=== PATIENT | male | born 1950 | race Caucasian/White ===

== ENCOUNTER → 2016-03-26 | Outpatient (CLI) | payer BC ==
--- NOTE | 2016-03-26 08:37 | US ---
EXAMINATION TYPE: US abdomen complete DATE OF EXAM: 03/26/2016 7:54 AM COMPARISON: CT 2011 CLINICAL HISTORY: R74.0 Elevated Enzymes of Lactic Acid. History of left renal calculi, pt has had se veral lithotripsy exams. EXAM MEASUREMENTS: Liver Length: 14.3 cm cm Gallbladder Wall: 0.3 cm CBD: 0.2 cm Spleen: 9.4 cm Right Kidney: 10.1 x 5.1 x 4.6 cm Left Kidney: 10.4 x 5.0 x 4.3 cm cm TECHNOLOGIST IMPRESSION: overlying bowel gas Pancreas: overlying bowel gas, portions seen wnl Liver: fatty sparing 1.8 x 1.8 x 1.0 cm lacey hepatis Gallbladder: wnl Evidence for sonographic Arambula's sign: no CBD: wnl Spleen: wnl Right Kidney: No hydronephrosis or masses seen Left Kidney: no hydro seen, inferior stone 0.8 x 2.0 x 1.2 cm Upper IVC: wnl Abd Aorta: wnl Area of reduced echogenicity within the lacey hepatis most typical focal area of fatty sparing. There is a 2 cm stone involving the inferior pole left kidney. IMPRESSION: 1. Nonobstructing 2 cm lower pole left renal stone 2. Area of focal fatty sparing within the liver
== END | disposition home or self-care (01) ==
LOC: RADUSWWP 07:34
PROVIDERS: ATTEND Family Medicine
DX: N20.0 Calculus of kidney (principal); K76.0 Fatty (change of) liver, not elsewhere classified
CPT/HCPCS: 76700

== ENCOUNTER 2018-04-16 09:09 | Inpatient (IN) | payer MEDICARE ==
[2018-04-16] MEDS ORDERED: DOBUTamine DRIP for NUC MED 500 MG in DEXTROSE/WATER 1 250ML.BAG IV ONE (10:00)
--- NOTE | 2018-04-16 11:14 | ECHOS ---
STRESS ECHOCARDIOGRAM DATE OF SERVICE: 04/16/2018 INDICATIONS: Chest pain and palpitations. MEDICATIONS: BASELINE HEART RATE: 71 BASELINE BLOOD PRESSURE: 158/92 MAXIMUM HEART RATE: 139 MAXIMUM BLOOD PRESSURE: 177/77 85% MPHR: 131 100% MPHR: 154 METS: MAXIMUM STAGE REACHED: TOTAL EXERCISE TIME: CLINICAL INFORMATION: Baseline EKG shows sinus rhythm, normal axis, normal intervals. Patient was given intravenous dobutamine over a period of 7-1/2 minutes as per protocol, achieving 90% of predicted maximal heart rate. The patient developed SVT initially and subsequently went into atrial fibrillation. Baseline echo shows normal left ventricular size, wall motion and systolic function. Post dobutamine infusion, there is normal hyperdynamic response of all segments of myocardium. CONCLUSION: 1. Negative dobutamine echo. 2. Inconclusive EKG part of the stress test due to atrial fibrillation. 3. Episodes of paroxysmal supraventricular tachycardia and atrial fibrillation. PLAN: Patient's palpitations are probably related to the atrial fibrillation and given the prior history of TIA, I advised him to start an anticoagulant. If he continues to be in atrial fibrillation, we may admit him to hospital. If not, we will manage this in the outpatient setting. MMODL / IJN: [id number] /
--- NOTE | 2018-04-16 11:29 | CT ---
EXAMINATION TYPE: CT chest wo con DATE OF EXAM: 04/16/2018 COMPARISON: NONE HISTORY: Chest pain for [address] DLP: 333.50 mGycm. Automated Exposure Control for Dose Reduction was Utilized. TECHNIQUE: CT scan of the thorax is performed without IV contrast. FINDINGS: LUNGS: The lungs are grossly clear, there is no concerning parenchymal mass or nodule identified. B andlike pleural parenchymal scar is present within the anterior inferior right upper lobe. There is a 3 mm subpleural solid pulmonary nodules the right middle lobe on series 4 image 37. Benign calcified nodule both the pleural surface in the right middle lobe on image 44. There is no pleural effusion o r pneumothorax seen. The tracheobronchial tree is patent. Slight left hemidiaphragm elevation is not ed on the coronal images. MEDIASTINUM: Lack of IV contrast is noted to limit evaluation for mediastinal and especially hilar ad enopathy. There are no definitive greater than 1 cm hilar or mediastinal lymph nodes. Ascending thora cic aorta is within normal limits but upper limits of normal measuring 3.8 cm. Aortic root is also wi thin normal limits. No cardiomegaly or pericardial effusion is seen. There is slight enlargement of t he right main pulmonary artery measuring 2.8 cm. Left main pulmonary artery and nonenlarged. Mild cor onary artery calcifications are seen of the right coronary artery. OTHER: Partially visualized hepatic steatosis is incidentally noted. Two low-density nodules of the r ight adrenal gland are also seen measuring 1.3 cm and 1.0 cm with Hounsfield units compatible with be nign adenomas. Few colonic diverticula are present without surrounding inflammatory fat stranding. IMPRESSION: 1. No focal consolidation, pleural effusion or pneumothorax. Slight left hemidiaphragm elevation is s een. If there is clinical concern for diaphragmatic paresis fluoroscopic sniff test could be performe d. 2. 3 mm solid right middle lobe pulmonary nodule. Surveillance for nodules of this size is recommende d with [address] chest. 3. Hepatic steatosis and benign right adrenal adenomas. 4. Mildly dilated right main pulmonary artery, that may clinically correlate with pulmonary arterial hypertension.
[2018-04-16] MEDS ORDERED: HEPARIN SODIUM,PORCINE 5,000 UNIT/ML 1 ML VIAL IV ONE (11:31)
[2018-04-16] MEDS ORDERED: HEPARIN SODIUM,PORCINE 5,000 UNIT/ML 1 ML VIAL IV PRN (11:31)
[2018-04-16] MEDS ORDERED: DILTIAZEM DRIP BOLUS FROM BAG 1 MG SOLN IV ONE (11:32)
--- NOTE | 2018-04-16 11:39 | P.CRDCN ---
History of Present Illness History of present illness: This is a pleasant 68-year-old male past medical history significant for hypertension and TIA in the past. His only cardiac medication he takes daily as well as lisinopril. He presented to the stress lab today for an outpatient stress test test indication was chest pain and palpitations. All undergoing dobutamine infusion he initially was in sinus mechanism then went into SVT heart rate went up to 215 and he then went into atrial fibrillation with a varying ventricular rate. He was given IV Lopressor 5 mg which brought his heart rate down to 140-150 range. Blood pressure remained stable throughout the stress test most recent was 127/86 and 118/79. He complains of feeling palpitations and fluttering in his chest similar to how he is felt in the past. He denies symptoms of chest pain, dizziness or shortness of breath. The decision was made to admit the patient to the hospital for initiation of anticoagulation and control of his heart rate. Dr. Connell's office was notified in case was discussed with his nurse practitioner Linda. She states the patient does struggle with alcohol abuse as well. Dobutamine stress echocardiogram is negative for stress-induced ischemia. EKG obtained in the stress lab reveals atrial fibrillation with rapid ventricular response heart rate 143. Laboratory data pending. At the time of my exam: CONSTITUTIONAL: Denies fever. Denies chills. EYES: Denies blurred vision. Denies vision changes. Denies eye pain. EARS, NOSE, MOUTH & THROAT: Denies headache. Denies sore throat. Denies ear pain. CARDIOVASCULAR: Denies chest pain. Denies shortness of breath. Denies orthopnea. Denies PND. Complains of palpitations. RESPIRATORY: Denies cough. GASTROINTESTINAL: Denies abdominal pain. Denies diarrhea. Denies constipation. Denies nausea. Denies vomiting. MUSCULOSKELETAL: Denies myalgias. INTEGUMENTARY: Denies pruitis. Denies rash. NEUROLOGIC: Denies numbness. Denies tingling. Denies weakness. PSYCHIATRIC: Denies anxiety. Denies depression. ENDOCRINE: Denies fatigue. Denies weight change. Denies polydipsia. Denies polyurina. GENITOURINARY: Denies burning, hematuria or urgency with micturation. HEMATOLOGIC: Denies history of anemia. Denies bleeding. Blood pressure 118/79 heart rate 143 GENERAL: This is a 68-year-old male in no apparent distress at the time of my examination. HEENT: Head is atraumatic, normocephalic. Pupils are equal, round. Sclerae anicteric. Conjunctivae are clear. Mucous membranes of the mouth are moist. Neck is supple. There is no jugular venous distention. No carotid bruit is heard. LUNGS: Clear to auscultation no wheezes, rales or rhonchi. No chest wall tenderness is noted on palpation or with deep breathing. HEART: Irregular and rapid rate and rhythm without murmurs, rubs or gallops. S1 and S2 heard. ABDOMEN: Soft, nontender. Bowel sounds are heard. No organomegaly noted. EXTREMITIES: No evidence of peripheral edema and no calf tenderness noted. VASCULAR: Radial and dorsalis pedis pulses palpated, no evidence of clubbing. NEUROLOGIC: Patient is awake, alert and oriented x3. ASSESSMENT New onset paroxysmal atrial fibrillation with rapid ventricular response Hypertension Regular alcohol use PLAN Initiate the patient on IV Cardizem infusion with a 5 mg bolus and a 5 mg drip titrated to heart rate. Initiate an IV heparin infusion. Initiate metoprolol 25 mg twice a day. We will ask the telephonic nurse case manager to check for coverage of Eliquis 5 mg twice a day. Obtain CBC, PT/INR, BMP, magnesium and TSH. Once heart rate is controlled will obtain a 2-D echocardiogram and Doppler study to assess cardiac structure and function. Further recommendations to follow based upon clinical course. Thank you kindly for this consultation. Nurse Practitioner note has been reviewed, I agree with a documented findings and plan of care. Patient was seen and examined. Medications and Allergies Allergies Allergy/AdvReac Type Severity Reaction Status Date / Time No Known Allergies Allergy Unverified 04/16/18 09:55 Physical Exam Vitals: Intake and Output 04/15/18 04/16/18 04/16/18 22:59 06:59 14:59 Other: Weight 77.111 kg Results Intake and Output 04/15/18 04/16/18 04/16/18 22:59 06:59 14:59 Other: Weight 77.111 kg Patient Weight 04/17/18 06:59 Weight 77.111 kg
[2018-04-16] MEDS ORDERED: HEPARIN SOD,PORK IN 0.45% NACL 25,000 UNIT in 0.45% NACL 1 250ML.BAG IV SCH (11:45)
[2018-04-16] MEDS ORDERED: METOPROLOL TARTRATE 25 MG TAB PO SCH (11:45)
[2018-04-16] MEDS ORDERED: DILTIAZEM 125 MG in SODIUM CHLORIDE 0.9% 100 ML IV SCH (11:45)
[2018-04-16 11:53] LABS: Glucose,Whole Blood 125 mg/dL (75-99)
[2018-04-16 12:58] LABS: Basophils % (A) 1 %; Calcium 9.4 mg/dL (8.4-10.2); Eosinophils # (A) 0.1 k/uL (0-0.7); Eosinophils % (A) 2 %; HCT 40.2 % (39.0-53.0); Lymphocytes # (A) 0.7 k/uL (1.0-4.8); Lymphocytes % (A) 21 %; MCH 33.7 pg (25.0-35.0); MCHC 32.4 g/dL (31.0-37.0); MCV 103.9 fL (80.0-100.0); Macrocytosis Slight; Magnesium 1.1 mg/dL (1.6-2.3); Mean Platelet Volume 7.8; Monocytes # (A) 0.2 k/uL (0-1.0); Monocytes % (A) 7 %; Neutrophils # (A) 2.4 k/uL (1.3-7.7); Neutrophils % (A) 68 %; Platelet Count 132 k/uL (150-450); Potassium 5.1 mmol/L (3.5-5.1); RBC 3.87 m/uL (4.30-5.90); RDW 11.7 % (11.5-15.5); WBC 3.5 k/uL (3.8-10.6)
[2018-04-16 13:01] LABS: Partial Thromboplastin Time 22.4 sec (22.0-30.0); Prothrombin Time 11.1 sec (9.0-12.0)
[2018-04-16 13:10] VITALS: BMI 26.6
--- NOTE | 2018-04-16 14:15 | P.HPIM ---
History of Present Illness H&P Date: 04/16/18 Chief Complaint: chest pain 68-year-old male with PMH of hypertension is admitted to the hospital after completing an outpatient stress test which chemically induced atrial fibrillation with RVR. Patient reports that he is being suffering chest pain has been ongoing for the past month since suffering from an apparent upper respiratory infection which consisted of cough and congestion. Chest x-ray and EKG was done in the outpatient setting which is unremarkable as per patient. However, his chest pain persisted resulting in an order for stress test. Pain is intermittent and occurs 10 times a day. The pain lasts for a few minutes when it starts. Pain is left-sided, sharp in nature and occasionally radiates to the right side of the chest. There are no alleviating or aggravating factors. Pain is not exacerbated with deep inspiration or with movement. Patient denies any headache , lower extremity edema, nausea, vomiting, fever, cough, shortness of breath, palpitations, changes in urination or bowel habits. No changes in appetite or weight. While undergoing dobutamine infusion he initially was in sinus mechanism then went into SVT, heart rate went up to 215, and he then went into atrial fibrillation with a varying ventricular rate. He was given IV Lopressor 5 mg which brought his heart rate down to 140-150 range. In the ED, CT of the chest showed a 3 mm solid right middle lobe pulmonary nodule. Patient is admitted for atrial fibrillation with rapid ventricular rate , cardiology on consult. Review of Systems All systems: negative Past Medical History Past Medical History: CVA/TIA, GERD/Reflux, Hypertension History of Any Multi-Drug Resistant Organisms: None Reported Past Surgical History: No Surgical Hx Reported Past Anesthesia/Blood Transfusion Reactions: Unable to Obtain Past Psychological History: No Psychological Hx Reported Smoking Status: Never smoker Medications and Allergies Allergies Allergy/AdvReac Type Severity Reaction Status Date / Time No Known Allergies Allergy Unverified 04/16/18 09:55 Physical Exam Vitals: Vital Signs Pulse Resp BP Pulse Ox 04/16/18 13:00 74 15 152/104 96 04/16/18 12:30 72 18 167/105 95 04/16/18 12:00 133 H 23 164/107 95 04/16/18 11:43 125 H 26 H Intake and Output 04/15/18 04/16/18 04/16/18 22:59 06:59 14:59 Other: Weight 77.111 kg General: [non toxic], [no distress], [appears at stated age] Derm: [warm], [dry] Head: [atraumatic], [normocephalic], [symmetric] Eyes: [EOMI], [no lid lag], [anicteric sclera] Mouth: [no lip lesion], [mucus membranes moist] Cardiovascular: [S1S2 reg], [no murmur], [positive posterior tibial pulse bilateral], Lungs: [CTA bilateral], [no rhonchi, no rales] , [no accessory muscle use] Abdominal: [soft], [ nontender to palpation], [no guarding], [no appreciable organomegaly] Ext: [no gross muscle atrophy], [no edema], [no contractures] Neuro: [ CN II-XI grossly intact], [no focal neuro deficits] Psych: [Alert], [oriented], [appropriate affect] Results CBC & Chem 7: 04/16/18 12:22 04/16/18 12:22 Labs: Abnormal Lab Results - Last 24 Hours (Table) 04/16/18 04/16/18 04/16/18 Range/Units 11:41 12:22 12:22 WBC 3.5 L (3.8-10.6) k/uL RBC 3.87 L (4.30-5.90) m/uL MCV 103.9 H (80.0-100.0) fL Plt Count 132 L (150-450) k/uL Lymphocytes # 0.7 L (1.0-4.8) k/uL Sodium 146 H (137-145) mmol/L Chloride 112 H (98-107) mmol/L BUN 38 H (9-20) mg/dL Creatinine 1.60 H (0.66-1.25) mg/dL Glucose 111 H (74-99) mg/dL POC Glucose (mg/dL) 125 H (75-99) mg/dL Magnesium 1.1 L (1.6-2.3) mg/dL Thrombosis Risk Factor Assmnt - Choose All That Apply Each Factor Represents 1 point: Age 41-60 years Other Risk Factors: No Other congenital or acquired thrombophilia - If yes, enter type in comment: No Thrombosis Risk Factor Assessment Total Risk Factor Score: 1 Thrombosis Risk Factor Assessment Level: Low Risk Assessment and Plan Assessment: Assessment and Plan 1. Atrial fibrillation with RVR 2. Chest pain 1. Patient converted while in the ICU. Will hold diltiazem drip, heparin drip. Patient started on metoprolol 25 mg by mouth twice a day. Telemetry monitoring. TSH is within normal limits. Keep potassium greater than 4 and magnesium greater than 2. We'll follow echocardiogram results. Will follow cardiology consultation. 2. Likely musculoskeletal, tenderness to palpation. Will follow the results of the stress test. Telemetry monitoring. Follow cardiology recommendations. Patient admitted for atrial fibrillation with RVR. Converted to sinus without intervention. Will follow cardiology recommendations.
[2018-04-16 15:26] VITALS: BP 176/112; PULSE 64; RESP 18
[2018-04-16] MEDS ORDERED: APIXABAN 5 MG TAB PO SCH (21:00)
[2018-04-17] MEDS ORDERED: METOPROLOL SUCCINATE (ER) 25 MG TAB.ER.24H PO SCH (09:00)
== END 2018-04-16 16:40 | disposition home or self-care (01) | DRG 310 ==
LOC: RADNMMAIN 09:09 → 2SICU 11:38
PROVIDERS: ADMIT Family Medicine; ATTEND Family Medicine
DX: I48.0 Paroxysmal atrial fibrillation (principal); F10.10 Alcohol abuse, uncomplicated; I47.1 Supraventricular tachycardia; J06.9 Acute upper respiratory infection, unspecified; K21.9 Gastro-esophageal reflux disease without esophagitis; Z86.73 Personal history of transient ischemic attack (TIA), and cerebral infarction without residual deficits; R91.1 Solitary pulmonary nodule; I10 Essential (primary) hypertension; Z79.899 Other long term (current) drug therapy
CPT/HCPCS: 71250; 80048; 83735; 84443; 85025; 85610; 85730; 93351

== ENCOUNTER → 2018-06-09 | Outpatient (CLI) | payer MEDICARE ==
[2018-06-09 15:57] LABS: HCT 40.1 % (39.0-53.0); HGB 13.9 gm/dL (13.0-17.5); MCH 35.2 pg (25.0-35.0); MCHC 34.6 g/dL (31.0-37.0); MCV 101.8 fL (80.0-100.0); Mean Platelet Volume 8.1; Platelet Count 203 k/uL (150-450); RBC 3.94 m/uL (4.30-5.90); RDW 12.1 % (11.5-15.5); WBC 5.8 k/uL (3.8-10.6)
[2018-06-09 16:17] LABS: Potassium 4.7 mmol/L (3.5-5.1)
== END ==
LOC: LABPAT 14:52
PROVIDERS: ATTEND Internal Medicine Cardiovascular Disease
DX: Z01.812 Encounter for preprocedural laboratory examination (principal); I48.0 Paroxysmal atrial fibrillation; R07.1 Chest pain on breathing
CPT/HCPCS: 36415; 80051; 82565; 84520; 85027

== ENCOUNTER 2018-06-18 06:58 | Day surgery (SDC) | payer MEDICARE ==
[2018-06-12 08:43] VITALS: BMI 25.8
[2018-06-18] MEDS ORDERED: SODIUM CHLORIDE 0.9% 1,000 ML IV SCH ×2 (07:00→12:00)
[2018-06-18] MEDS ORDERED: ASPIRIN 325 MG TAB PO STA (07:12)
[2018-06-18] MEDS ORDERED: ATORVASTATIN 80 MG TAB PO STA (07:12)
[2018-06-18] MEDS ORDERED: ALPRAZolam 0.5 MG TAB PO PRN (07:12)
[2018-06-18] MEDS ORDERED: ALPRAZolam 0.25 MG TAB PO PRN (07:12)
[2018-06-18] MEDS ORDERED: NITROGLYCERIN SL TABS 0.4 MG TAB SUBLINGUAL PRN (07:12)
[2018-06-18] MEDS ORDERED: SODIUM CHLORIDE 0.9% 1,000 ML in EMPTY BAG 1 BAG IV ONE (07:12)
[2018-06-18] MEDS ORDERED: SODIUM CHLORIDE 0.9% 1,000 ML IV ONE (07:30)
[2018-06-18 08:04] VITALS: TEMP 97.8
[2018-06-18] MEDS ORDERED: ASPIRIN 325 MG TAB PO ONE (08:09)
[2018-06-18] MEDS ORDERED: ALPRAZolam 0.5 MG TAB PO ONE (08:10)
[2018-06-18] MEDS ORDERED: LIDOCAINE 1% INJ 10MG/ML (20 ML MDV) ONE (11:20)
[2018-06-18] MEDS ORDERED: fentaNYL (PF) 50 MCG/ML 2 ML AMP ONE (11:20)
[2018-06-18] MEDS ORDERED: fentaNYL (PF) 50 MCG/ML 2 ML AMP IV ONE (11:27)
[2018-06-18] MEDS ORDERED: MIDAZOLAM 2 MG/2 ML VIAL IV ONE (11:27)
[2018-06-18] MEDS ORDERED: LIDOCAINE 1% INJ 10MG/ML (20 ML MDV) SQ ONE (11:35)
[2018-06-18] MEDS ORDERED: IOPAMIDOL-370 100ML BTL INJ ONE (11:44)
[2018-06-18] MEDS ORDERED: RX INFO: IV CONTRAST WAS GIVEN 1 EACH MISC MISCELLANE PRN (11:51)
[2018-06-18 12:36] VITALS: RESP 20
[2018-06-18 16:45] VITALS: PULSE 80
[2018-06-18 17:12] VITALS: BP 167/78
--- NOTE | 2018-06-19 08:45 | CC ---
CARDIAC CATHETERIZATION REPORT Kp is a 68-year-old gentleman with history of hypertension, family history of premature coronary artery disease, who initially presented to me with paroxysmal episodes of atrial fibrillation and subsequently has had intermittent episodes of chest pain. Due to this, I advised him to undergo cardiac catheterization to rule out significant CAD. The patient has renal insufficiency with elevated creatinine. His contrast threshold was 114 mL. We were very careful not to use too much contrast on him. PROCEDURE NOTE: After obtaining informed consent, left heart catheterization, coronary angiogram were performed via the right femoral artery using standard Purnima catheters. The patient tolerated the procedure well without any obvious immediate complications. FINDINGS: HEMODYNAMICS: Left ventricular end-diastolic pressure is 12 to 14 mm. There is no gradient across aortic valve. LEFT VENTRICULOGRAM: Left ventriculogram was not performed. ANGIOGRAPHIC DATA: LEFT MAIN CORONARY ARTERY: Left main coronary artery is a normal-sized vessel and is free of stenosis. Divides into left anterior descending coronary artery and circumflex coronary artery. LEFT ANTERIOR DESCENDING CORONARY ARTERY: LAD shows a mild atherosclerotic plaque in its proximal part. There are no focal hemodynamically significant lesions. CIRCUMFLEX CORONARY ARTERY: Circumflex coronary artery and its branches are free of significant stenosis. RIGHT CORONARY ARTERY: Right coronary artery is a is a dominant vessel and is free of significant stenosis. Patient received moderate conscious sedation. Total sedation time was 14 minutes. She underwent femoral angiogram and Angio-Seal was deployed for hemostasis. CONCLUSIONS: 1. Mild nonobstructive coronary artery disease involving LAD. 2. Chronic renal insufficiency. The patient had been hydrated prior to cath and will be hydrated post catheterization. 3. Patient's management is going to be in the form of risk factor modification and optimal medical therapy. He will resume the Xarelto that he is currently on from the evening. MMODL / IJN: [id number] /
== END 2018-06-18 17:05 | disposition home or self-care (01) ==
LOC: CATHCVL 06:58
PROVIDERS: ATTEND Internal Medicine Cardiovascular Disease
DX: I25.110 Atherosclerotic heart disease of native coronary artery with unstable angina pectoris (principal); I12.9 Hypertensive chronic kidney disease with stage 1 through stage 4 chronic kidney disease, or unspecified chronic kidney disease; N18.9 Chronic kidney disease, unspecified; I48.0 Paroxysmal atrial fibrillation; Z82.49 Family history of ischemic heart disease and other diseases of the circulatory system; Z79.01 Long term (current) use of anticoagulants; Z79.899 Other long term (current) drug therapy
CPT/HCPCS: 93458; C1760; C1894; C1769; J2250; J2001; J3010; Q9967

== ENCOUNTER → 2019-06-17 | Outpatient (CLI) | payer MEDICARE ==
--- NOTE | 2019-06-17 17:04 | CT ---
EXAMINATION TYPE: CT lumbar spine wo con DATE OF EXAM: 06/17/2019 COMPARISON: None HISTORY: low back pain, bilateral extremity numbness x3 weeks CT DLP: 961 mGycm CONTRAST: None TECHNIQUE: CT of the lumbar spine is performed on a spiral scan at 3 mm thick sections. Reconstructed images are performed in the coronal and sagittal planes. FINDINGS: T10-T11, T11-T12: T12-L1: No focal disc herniation or significant disc bulge is evident. No spinal canal stenosis or neural foraminal stenosis is present. L1-L2: There is narrowing of the disc height. Minimal vacuum disc phenomenon is present. Residual dis c bulge has anterior thecal sac contact. No AP spinal canal stenosis present. Neural foramen are childress nt L2-L3: No focal disc herniation or significant disc bulge is evident. No spinal canal stenosis or n eural foraminal stenosis is present L3-L4: There is loss of disc height is level with vacuum disc phenomenon. Residual disc has moderate anterior thecal sac flattening. No AP spinal canal stenosis is present. Neural foramen are patent. Mi nimal endplate spurring from the superior endplate of L4 may be present. L4-L5: There is loss of disc height with vacuum phenomenon. Endplate spurring is present. There is mo derate anterior thecal sac compression. Mild ligamentum flavum laxity is present. Neural foramen appe ar patent L5-S1: Endplate spurring is present with moderate anterior thecal sac compression. Ligamentum flavum laxity is present. No spinal canal stenosis is present. Neural foramen appear patent. Vacuum disc phe nomenon is present. Vertebral alignment appears normal. There is disc space narrowing and disc space loss throughout the lumbar spine and lower thoracic spin e. Vacuum phenomenon is present L3-4, L4-5, L5-S1 and to a minimal degree L1-2. IMPRESSION: Multilevel loss of disc height. 2. Minimal residual disc bulging and endplate spurring in the lower lumbar spine greatest at L4-5 wit h moderate anterior thecal sac compression
== END | disposition home or self-care (01) ==
LOC: RADCTMAIN 16:05
PROVIDERS: ATTEND Nurse Practitioner Adult Health
DX: M51.26 Other intervertebral disc displacement, lumbar region (principal)
CPT/HCPCS: 72131

== ENCOUNTER → 2019-12-16 | Outpatient (CLI) | payer MEDICARE ==
--- NOTE | 2019-12-16 20:43 | US ---
EXAMINATION TYPE: US venous doppler duplex LE BI DATE OF EXAM: 12/16/2019 4:24 PM COMPARISON: NONE CLINICAL HISTORY: R60.9 edema. SIDE PERFORMED: Bilateral TECHNIQUE: The lower extremity deep venous system is examined utilizing real time linear array sonog kiki with graded compression, doppler sonography and color-flow sonography. VESSELS IMAGED: External Iliac Vein (EIV) Common Femoral Vein Deep Femoral Vein Greater Saphenous Vein * Femoral Vein Popliteal Vein Small Saphenous Vein * Proximal Calf Veins (* superficial vessels) Right Leg: Negative for DVT Left Leg: Negative for DVT IMPRESSION: 1. Bilateral lower extremity ultrasound negative for deep venous thrombosis.
== END | disposition home or self-care (01) ==
LOC: RADUSWWP 15:54
PROVIDERS: ATTEND Nurse Practitioner Family
DX: R60.9 Edema, unspecified (principal)
CPT/HCPCS: 93970

== ENCOUNTER → 2019-12-24 | Outpatient (CLI) | payer MEDICARE ==
--- NOTE | 2019-12-29 14:34 | P.ARTDOP ---
Arterial Doppler LOWER EXTREMITY ARTERIAL DOPPLER: DATE OF SERVICE: 12/24/2019 Reason for study: Lower extremity numbness. Doppler waveforms: Multiphasic bilaterally throughout. Pulse volume recording: []. Pressure gradients: None. Ankle-brachial indices: Greater than 1 bilaterally. Toe brachial indices: 0.7 on the right, 0.71 on the left Impression: Normal study.
== END | disposition home or self-care (01) ==
LOC: RADUSWWP 13:29
PROVIDERS: ATTEND Family Medicine
DX: R60.9 Edema, unspecified (principal)
CPT/HCPCS: 93922; 93923

== ENCOUNTER → 2020-01-19 | Day surgery (SDC) | payer MEDICARE ==
[2020-01-17 15:53] VITALS: BMI 26.6
[~2020-01-19] MED LIST: BENZOCAINE SPRAY 1 CAN MUCOUS MEM ONE; IV FLUID CONTINUATION 1,000 ML IV ONE; LACTATED RINGERS 1,000 ML IV SCH; LIDOCAINE 1% INJ 10MG/ML (20 ML MDV) ONE; METOPROLOL SUCCINATE (ER) 25 MG TAB.ER.24H PO SCH; PROPOFOL 10 MG/ML 20 ML VIAL IV ONE; SODIUM CHLORIDE 0.9% 1,000 ML IV SCH
[2020-01-19 08:26] VITALS: TEMP 98
[2020-01-19 08:54] LABS: Potassium 3.8 mmol/L (3.5-5.1)
[2020-01-19 11:51] VITALS: RESP 16
[2020-01-19 15:19] VITALS: BP 127/74; PULSE 52
--- NOTE | 2020-02-03 15:26 | ECHOT ---
TRANSESOPHAGEAL ECHOCARDIOGRAM TRANSESOPHAGEAL ECHOCARDIOGRAM: INDICATION: To rule out intracardiac thrombus in a patient with permanent atrial fibrillation prior to cardioversion. PROCEDURE NOTE: After obtaining informed consent, transesophageal echocardiogram was performed in left lateral position using an Omniplane probe. Local and IV sedation were obtained by the brace maker. The patient tolerated the procedure well without any obvious immediate complications. FINDINGS: 1. Left ventricle has normal size and systolic function. 2. There is no intracardiac thrombus within the left atrial appendage, left atrium, right atrium, right ventricle. 3. There is no evidence of [id number] shunt by color-flow Doppler or [id number] shunt by agitated saline contrast study. CONCLUSION: No intracardiac thrombus. MMODL / IJN: [id number] /
--- NOTE | 2020-02-03 16:11 | PCN ---
PROCEDURE NOTE CARDIOVERSION: After obtaining informed consent, making sure that the patient does not have intracardiac thrombus, the patient was adequately sedated by the fiber machine tender and was cardioverted using 300 joules of synchronized DC current. Post-cardioversion EKG confirms successful cardioversion. AMAN / TRAMAINE: [id number] /
== END ==
LOC: CATHCVL 07:49
PROVIDERS: ATTEND Internal Medicine Cardiovascular Disease
DX: I48.21 Permanent atrial fibrillation (principal); I42.9 Cardiomyopathy, unspecified; I10 Essential (primary) hypertension; Z82.49 Family history of ischemic heart disease and other diseases of the circulatory system; I48.91 Unspecified atrial fibrillation; Z86.73 Personal history of transient ischemic attack (TIA), and cerebral infarction without residual deficits; K21.9 Gastro-esophageal reflux disease without esophagitis; Z20.828 Contact with and (suspected) exposure to other viral communicable diseases; Z79.01 Long term (current) use of anticoagulants; Z79.1 Long term (current) use of non-steroidal anti-inflammatories (NSAID); Z79.899 Other long term (current) drug therapy
CPT/HCPCS: 93312; 93320; 93325; 92960; 80048; 87635; J2001; J2704

== ENCOUNTER → 2020-02-22 | Outpatient (CLI) | payer MEDICARE ==
[2020-02-23 04:45] LABS: Potassium 4.5 mmol/L (3.5-5.5)
[2020-02-23 05:21] LABS: African American GFR (CKD) 50.9 (60.0-200.0); Anion Gap 13.6 mmol/L (4.00-12.00); BUN/Creat Ratio 14.38 Ratio (12.00-20.00); Calcium 9.2 mg/dL (8.7-10.3); Carbon Dioxide 20.4 mmol/L (21.6-31.8); Non-African American GFR(CKD) 43.9 (60.0-200.0)
== END | disposition home or self-care (01) ==
LOC: LABWHC1 15:30
PROVIDERS: ATTEND Internal Medicine Cardiovascular Disease
DX: I11.0 Hypertensive heart disease with heart failure (principal); I50.22 Chronic systolic (congestive) heart failure; I48.21 Permanent atrial fibrillation
CPT/HCPCS: 36415; 80048

== ENCOUNTER 2023-01-21 18:09 | Inpatient (IN) | payer MEDICARE ==
--- NOTE | 2023-01-21 19:18 | ED ---
General Adult HPI - General Chief complaint: Dizziness Stated complaint: Lightheadedness Time Seen by Provider: 01/21/23 18:54 Source: patient, family, RN notes reviewed Mode of arrival: ambulatory Limitations: no limitations - History of Present Illness Initial comments: Patient is a pleasant 72-year-old male presenting to the emergency department with concern for lightheadedness. Onset of symptoms was a couple weeks ago. Patient did go to urgent care today and found heart rate to be high. Patient was sent to emergency department. Patient states he does have a history of an irregular heartbeat. Patient denies any chest pain. No palpitations. No dyspnea. - Related Data Home Medications Medication Instructions Recorded Confirmed Omeprazole [PriLOSEC] 20 mg PO AC-BRKFST PRN 06/12/18 01/19/20 Furosemide [Lasix] 40 mg PO DAILY 01/19/20 01/19/20 Losartan Potassium 100 mg PO DAILY 01/19/20 01/19/20 Potassium Chloride [K-Tab ER] 20 meq PO DAILY 01/19/20 01/19/20 hydroCHLOROthiazide 12.5 mg PO DAILY 01/19/20 01/19/20 Previous Rx's Medication Instructions Recorded Apixaban [Eliquis] 5 mg PO BID #60 tab 04/16/18 Metoprolol Succinate (ER) [Toprol 25 mg PO DAILY #30 tab 04/16/18 Xl] Allergies Allergy/AdvReac Type Severity Reaction Status Date / Time No Known Allergies Allergy Verified 01/17/20 15:43 Review of Systems ROS Statement: Those systems with pertinent positive or pertinent negative responses have been documented in the HPI. ROS Other: All systems not noted in ROS Statement are negative. Constitutional: Denies: fever Eyes: Denies: eye pain ENT: Denies: ear pain Respiratory: Denies: cough, dyspnea Cardiovascular: Reports: as per HPI. Denies: chest pain, palpitations Endocrine: Denies: fatigue Gastrointestinal: Denies: abdominal pain Genitourinary: Denies: dysuria Neurological: Denies: headache, weakness, confusion Past Medical History Past Medical History: Atrial Fibrillation, CVA/TIA, GERD/Reflux, Hypertension, Myocardial Infarction ([place]) Additional Past Medical History / Comment(s): CVA-2006 no residual Last Myocardial Infarction Date:: History of Any Multi-Drug Resistant Organisms: None Reported Past Surgical History: Heart Catheterization Past Anesthesia/Blood Transfusion Reactions: No Reported Reaction Past Psychological History: No Psychological Hx Reported Smoking Status: Former smoker - Past Family History Mother Family Medical History: No Reported History Father Family Medical History: Cancer General Exam Limitations: no limitations General appearance: alert, in no apparent distress Head exam: Present: normocephalic Eye exam: Present: normal appearance Neck exam: Present: normal inspection Respiratory exam: Present: normal lung sounds bilaterally Cardiovascular Exam: Present: tachycardia, irregular rhythm GI/Abdominal exam: Present: soft. Absent: tenderness Extremities exam: Present: normal inspection. Absent: pedal edema, calf tenderness Neurological exam: Present: alert. Absent: motor sensory deficit Psychiatric exam: Present: normal affect, normal mood Skin exam: Present: normal color Course Vital Signs 01/21/23 18:47 Temperature 98 F Pulse Rate 151 H Respiratory 20 Rate Blood Pressure 83/58 O2 Sat by Pulse 98 Oximetry EKG Findings - EKG Results: EKG: interpreted by ERMD (A flutter with RVR. Right bundle branch block. Borderline lateral ST depression.), sinus rhythm, normal axis Medical Decision Making - Medical Decision Making Was pt. sent in by a medical professional or institution (, PA, ASSISTANT SITE MANAGER, urgent care, hospital, or longterm...) When possible be specific @ -[No] Did you speak to anyone other than the patient for history (EMS, parent, family, police, friend...)? What history was obtained from this source @ - is present and helps provide history including history of irregular heartbeat Did you review nursing and triage notes (agree or disagree)? Why? @ -[I reviewed and agree with nursing and triage notes] Were old charts reviewed (outside hosp., previous admission, EMS record, old EKG, old radiological studies, urgent care reports/EKG's, longterm records)? Report findings @ -[No old charts were reviewed] Differential Diagnosis (chest pain, altered mental status, abdominal pain women, abdominal pain men, vaginal bleeding, weakness, fever, dyspnea, syncope, headache, dizziness, GI bleed, back pain, seizure, CVA, palpatations, mental health, musculoskeletal)? @ -Differential Dizziness: Benign paroxysmal positional Vertigo, Menieres disease, otitis media, acoustic neuroma, vertebrobasilar insufficiency, cerebellar stroke, encephalitis, hypovolemic, arrhythmia, coronary artery syndrome, anemia, this is not meant to be an all-inclusive list EKG interpreted by me (3pts min.). @ -[As above] X-rays interpreted by me (1pt min.). @ -Chest x-ray shows no acute process CT interpreted by me (1pt min.). @ -[None done] U/S interpreted by me (1pt. min.). @ -[None done] What testing was considered but not performed or refused? (CT, X-rays, U/S, labs)? Why? @ -[None] What meds were considered but not given or refused? Why? @ -[None] Did you discuss the management of the patient with other professionals (professionals i.e. , PA, ASSISTANT SITE MANAGER, lab, RT, psych nurse, pediatric social worker, manager plan, teacher, hospital admissions officer, catalytic case operator)? Give summary @ -Case discussed with Dr. jaime, who will admit covering hospital call Was smoking cessation discussed for >3mins.? @ -[No] Was critical care preformed (if so, how long)? @ -31 minutes critical care time Were there social determinants of health that impacted care today? How? (Homelessness, low income, unemployed, alcoholism, drug addiction, transportation, low edu. Level, literacy, decrease access to med. care, senior care, rehab)? @ -[No] Was there de-escalation of care discussed even if they declined (Discuss DNR or withdrawal of care, Hospice)? DNR status @ -[No] What co-morbidities impacted this encounter? (DM, HTN, Smoking, COPD, CAD, Cancer, CVA, ARF, Chemo, Hep., AIDS, mental health diagnosis, sleep apnea, morbid obesity)? @ -History of irregular heartbeat Was patient admitted / discharged? Hospital course, mention meds given and route, prescriptions, significant lab abnormalities, going to OR and other pertinent info. @ -Patient reevaluated. Patient updated on results and plan. Fluids not ordered originally secondary to concern for possible CHF. No evidence of this with x-ray or clinically. Patient will be provided some fluids. Patient will need admission for further evaluation for acute kidney injury as well as heart rate control. Consults will be placed. Admission orders written. Undiagnosed new problem with uncertain prognosis? @ -[No] Drug Therapy requiring intensive monitoring for toxicity (Heparin, Nitro, Insulin, Cardizem)? @ -Patient is on Cardizem drip and will need monitoring Were any procedures done? @ -[No] Diagnosis/symptom? @ -A. fib with RVR, acute kidney injury Acute, or Chronic, or Acute on Chronic? @ -Acute, acute Uncomplicated (without systemic symptoms) or Complicated (systemic symptoms)? @ -[default] Side effects of treatment? @ -[No] Exacerbation, Progression, or Severe Exacerbation? @ -[No] Poses a threat to life or bodily function? How? (Chest pain, [place], [place], pneumonia, PE, COPD, DKA, ARF, appy, cholecystitis, CVA, Diverticulitis, Homicidal, Suicidal, threat to staff... and all critical care pts) @ -Threat to renal function possibly necessary for dialysis. Threat to cardiac function and life. - Lab Data Result diagrams: 01/21/23 19:26 01/21/23 19:26 Lab Results 01/21/23 01/21/23 01/21/23 Range/Units 19:26 19:26 19:26 WBC 7.1 (3.8-10.6) k/uL RBC 4.30 (4.30-5.90) m/uL Hgb 15.8 (13.0-17.5) gm/dL Hct 45.0 (39.0-53.0) % MCV 104.7 H (80.0-100.0) fL MCH 36.9 H (25.0-35.0) pg MCHC 35.2 (31.0-37.0) g/dL RDW 12.1 (11.5-15.5) % Plt Count 302 (150-450) k/uL MPV 9.2 Neutrophils % 77 % Lymphocytes % 16 % Monocytes % 5 % Eosinophils % 0 % Basophils % 0 % Neutrophils # 5.5 (1.3-7.7) k/uL Lymphocytes # 1.1 (1.0-4.8) k/uL Monocytes # 0.4 (0-1.0) k/uL Eosinophils # 0.0 (0-0.7) k/uL Basophils # 0.0 (0-0.2) k/uL Macrocytosis Slight PT 12.5 (10.0-12.5) sec INR 1.2 H (<1.2) APTT 26.3 (22.0-30.0) sec Sodium 134 L (137-145) mmol/L Potassium 3.8 (3.5-5.1) mmol/L Chloride 95 L (98-107) mmol/L Carbon Dioxide 21 L (22-30) mmol/L Anion Gap 18 mmol/L BUN 76 H (9-20) mg/dL Creatinine 4.17 H (0.66-1.25) mg/dL Est GFR (CKD-EPI)AfAm 16 (>60 ml/min/1.73 sqM) Est GFR (CKD-EPI)NonAf 14 (>60 ml/min/1.73 sqM) Glucose 102 H (74-99) mg/dL Calcium 10.2 (8.4-10.2) mg/dL Magnesium 2.0 (1.6-2.3) mg/dL Total Bilirubin 1.1 (0.2-1.3) mg/dL AST 33 (17-59) U/L ALT 31 (4-49) U/L Alkaline Phosphatase 77 (38-126) U/L Troponin I (0.000-0.034) ng/mL NT-Pro-B Natriuret Pep 1890 pg/mL Total Protein 7.1 (6.3-8.2) g/dL Albumin 4.2 (3.5-5.0) g/dL TSH 18.600 H (0.465-4.680) mIU/L Free T4 1.42 (0.78-2.19) ng/dL Free T3 pg/mL 3.5 (2.8-5.3) pg/ml 01/21/23 Range/Units 19:26 WBC (3.8-10.6) k/uL RBC (4.30-5.90) m/uL Hgb (13.0-17.5) gm/dL Hct (39.0-53.0) % MCV (80.0-100.0) fL MCH (25.0-35.0) pg MCHC (31.0-37.0) g/dL RDW (11.5-15.5) % Plt Count (150-450) k/uL MPV Neutrophils % % Lymphocytes % % Monocytes % % Eosinophils % % Basophils % % Neutrophils # (1.3-7.7) k/uL Lymphocytes # (1.0-4.8) k/uL Monocytes # (0-1.0) k/uL Eosinophils # (0-0.7) k/uL Basophils # (0-0.2) k/uL Macrocytosis PT (10.0-12.5) sec INR (<1.2) APTT (22.0-30.0) sec Sodium (137-145) mmol/L Potassium (3.5-5.1) mmol/L Chloride (98-107) mmol/L Carbon Dioxide (22-30) mmol/L Anion Gap mmol/L BUN (9-20) mg/dL Creatinine (0.66-1.25) mg/dL Est GFR (CKD-EPI)AfAm (>60 ml/min/1.73 sqM) Est GFR (CKD-EPI)NonAf (>60 ml/min/1.73 sqM) Glucose (74-99) mg/dL Calcium (8.4-10.2) mg/dL Magnesium (1.6-2.3) mg/dL Total Bilirubin (0.2-1.3) mg/dL AST (17-59) U/L ALT (4-49) U/L Alkaline Phosphatase (38-126) U/L Troponin I 0.037 H* (0.000-0.034) ng/mL NT-Pro-B Natriuret Pep pg/mL Total Protein (6.3-8.2) g/dL Albumin (3.5-5.0) g/dL TSH (0.465-4.680) mIU/L Free T4 (0.78-2.19) ng/dL Free T3 pg/mL (2.8-5.3) pg/ml Disposition Clinical Impression: Atrial fibrillation with RVR, Acute kidney injury Disposition: ADMITTED IP TO THIS HOSP Condition: Serious Is patient prescribed a controlled substance at d/c from ED?: No Referrals: None,Stated [Primary Care Provider] - 1-2 days Time of Disposition: 21:09
[2023-01-21 19:43] LABS: Basophils % (A) 0 %; Eosinophils % (A) 0 %; HGB 15.8 gm/dL (13.0-17.5); Lymphocytes # (A) 1.1 k/uL (1.0-4.8); Lymphocytes % (A) 16 %; MCH 36.9 pg (25.0-35.0); MCHC 35.2 g/dL (31.0-37.0); MCV 104.7 fL (80.0-100.0); Macrocytosis Slight; Mean Platelet Volume 9.2; Monocytes # (A) 0.4 k/uL (0-1.0); Monocytes % (A) 5 %; Neutrophils # (A) 5.5 k/uL (1.3-7.7); Neutrophils % (A) 77 %; Platelet Count 302 k/uL (150-450); RDW 12.1 % (11.5-15.5); WBC 7.1 k/uL (3.8-10.6)
[2023-01-21 19:53] LABS: ALT 31 U/L (4-49); AST 33 U/L (17-59); African American GFR (CKD) 16 (>60 ml/min/1.73 sqM); Albumin 4.2 g/dL (3.5-5.0); Alkaline Phosphatase 77 U/L (38-126); Anion Gap 18 mmol/L; Blood Urea Nitrogen 76 mg/dL (9-20); Calcium 10.2 mg/dL (8.4-10.2); Carbon Dioxide 21 mmol/L (22-30); Chloride 95 mmol/L (98-107); Glucose 102 mg/dL (74-99); Non-African American GFR(CKD) 14 (>60 ml/min/1.73 sqM); Potassium 3.8 mmol/L (3.5-5.1); Sodium 134 mmol/L (137-145); Total Bilirubin 1.1 mg/dL (0.2-1.3); Total Protein 7.1 g/dL (6.3-8.2)
[2023-01-21] MEDS ORDERED: DILTIAZEM 125 MG in SODIUM CHLORIDE 0.9% 100 ML IV SCH (20:00)
[2023-01-21 20:02] LABS: NT-Pro-B-Type Natriuretic Pept 1890 pg/mL
--- NOTE | 2023-01-21 20:09 | XR ---
EXAMINATION TYPE: XR chest 2V DATE OF EXAM: 01/21/2023 7:40 PM CLINICAL INDICATION:Male, 72 years old with history of dysrhythmia; [facility] COMPARISON: Chest radiographs from 01/21/2023. TECHNIQUE: XR chest 2V Frontal and lateral views of the chest. FINDINGS: Lungs/Pleura: There is flattening of the diaphragm with increased lucency of the lungs. No evidence o f pneumothorax, pleural effusion or focal consolidation. Pulmonary vascularity: Unremarkable. Heart/mediastinum: Cardiomediastinal silhouette is unremarkable. Musculoskeletal: No acute osseous pathology. IMPRESSION: 1. No acute cardiopulmonary disease process. 2. COPD changes.
[2023-01-21 20:10] LABS: T4, Free (Free Thyroxine) 1.42 ng/dL (0.78-2.19)
[2023-01-21] MEDS ORDERED: SODIUM CHLORIDE 0.9% 1,000 ML IV STA (20:13)
[2023-01-21] MEDS ORDERED: SODIUM CHLORIDE 0.9% 250 ML IV STA (20:13)
[2023-01-21 20:24] LABS: INR 1.2 (<1.2); Partial Thromboplastin Time 26.3 sec (22.0-30.0); Prothrombin Time 12.5 sec (10.0-12.5)
[2023-01-21] MEDS ORDERED: LORazepam 2 MG/ML INJ IV STA (20:40)
[2023-01-21] MEDS ORDERED: LORazepam 0.5 MG TAB PO PRN (21:10)
[2023-01-21] MEDS ORDERED: NALOXONE 0.4 MG/ML 1 ML VIAL IV PRN (21:10)
[2023-01-21] MEDS ORDERED: SODIUM CHLORIDE 0.9% 500 ML 500 ML IV STA (21:10)
[2023-01-21] MEDS ORDERED: PANTOPRAZOLE 40 MG TABLET PO PRN (21:13)
[2023-01-21] MEDS ORDERED: SODIUM CHLORIDE 0.9% 1,000 ML IV SCH (21:15)
--- NOTE | 2023-01-21 22:18 | US ---
EXAMINATION TYPE: US kidneys/renal and bladder DATE OF EXAM: 01/21/2023 COMPARISON: 03/26/16 CLINICAL INDICATION: Male, 72 years old with history of ramone; ramone EXAM MEASUREMENTS: Right Kidney: 9.3 x 6.8 x 4.8 cm Left Kidney: 9.6 x 4.5 x 4.9 cm Right Kidney: Hyperechoic focus seen in inf pole measuring 1.0 x 0.7 x 0.5cm Left Kidney: Hyperechoic focus seen with posterior shadowing in inf pole measuring 1.2 x 1.4 x 0.8cm Bladder: wnl Bilateral Jets seen: Only rt jet seen There is no evidence for hydronephrosis at this point in time. No nephrolithiasis is seen. No gilda s are identified. The urinary bladder is anechoic. Bilateral ureteral jets are seen. IMPRESSION: Bilateral renal calculi. No evidence for obstructive uropathy.
[2023-01-21] MEDS ORDERED: SODIUM CHLORIDE 0.9% 1,000 ML IV ONE (23:58)
[2023-01-22] MEDS: TEMAZEPAM 7.5 MG CAP PO PRN ×2 (00:01→00:51)
--- NOTE | 2023-01-22 00:41 | P.HPIM ---
History of Present Illness H&P Date: 01/21/23 Patient is a 72-year-old male with a PMH of A. fib on Eliquis, hypertension, chronic kidney disease, and TIA who presents to the emergency room with complaints of lightheadedness. Patient notes gradually worsening lightheadedness, especially brought on with standing up too quickly , ongoing for the past several weeks. Patient went to an urgent care center earlier today where he was noted to have A. fib with RVR and was sent to the emergency room. Patient denied experiencing chest discomfort, shortness of breath, fever, chills, cough, nausea, vomiting, abdominal pain, diarrhea. In the emergency room EKG revealed a flutter with RVR at 146 bpm with a right bundle branch block as reviewed by me. Chest x-ray was unremarkable. Ultrasound of kidneys and bladder revealed bilateral renal calculi. Laboratory evaluation revealed a troponin of 0.037, proBNP 1890, creatinine 4.1 (up from baseline of 1.3), with MCV 104.7. The patient's vitals upon arrival in the emergency room were BP 83/58, pulse 151, respiratory rate 20, temperature 90.8F, and SpO2 98% on room air. ED documentation reviewed and case discussed with ED provider. Review of systems: Pertinent positives and negatives as discussed in HPI, a complete review of systems was performed and all other systems are negative. Physical examination: Vital signs reviewed General: non toxic, no distress, appears at stated age, normal weight Derm: no unusual rashes/lesions, warm Head: atraumatic, normocephalic, symmetric Eyes: EOMI, no lid lag, anicteric sclera, pupils equal round reactive to light ENT: Nose and ears atraumatic Neck: No cervical lymphadenopathy, trachea midline, supple Mouth: no lip lesion, mucus membranes moist Cardiovascular: Irregularly irregular, no murmur, positive dorsalis pedis pulse bilateral, no edema Lungs: CTA bilateral, no rhonchi, no rales, no accessory muscle use Abdominal: soft, nontender to palpation, no guarding Ext: muscle strength 5 out of 5 in all 4 extremities grossly, no gross muscle atrophy, no contractures, Neuro: CN II-XI grossly intact, no gross focal neuro deficits Psych: Alert, oriented, appropriate affect Assessment: A. fib with RVR MARK on chronic kidney disease, unclear etiology Elevated troponin Macrocytosis Chronic conditions: A. fib, hypertension Imaging: In the emergency room EKG revealed a flutter with RVR at 146 bpm with a right bundle branch block as reviewed by me. Chest x-ray was unremarkable. Ultrasound of kidneys and bladder revealed bilateral renal calculi. Data Review: Laboratory evaluation revealed a troponin of 0.037, proBNP 1890, creatinine 4.1 (up from baseline of 1.3), with MCV 104.7. The patient's vitals upon arrival in the emergency room were BP 83/58, pulse 151, respiratory rate 20, temperature 90.8F, and SpO2 98% on room air. Plan: Continue with Cardizem infusion Resume home Eliquis Cardiac monitoring Cardiology consulted Trend troponin Nephrology consult for kidney failure with renal ultrasound reviewed Check B12 and folate levels C/w IVFs NS 75 ml/hr Continue home medications DVT prophylaxis: Eliquis The patient is admitted with an anticipated greater than 2 midnight stay for evaluation of Afib CODE STATUS: Full Code Discussed with: Patient Anticipated discharge place: Home Past Medical History Past Medical History: Atrial Fibrillation, CVA/TIA, GERD/Reflux, Hypertension, Myocardial Infarction ([place]) Additional Past Medical History / Comment(s): CVA-2006 no residual Last Myocardial Infarction Date:: History of Any Multi-Drug Resistant Organisms: None Reported Past Surgical History: Heart Catheterization Past Anesthesia/Blood Transfusion Reactions: No Reported Reaction Past Psychological History: No Psychological Hx Reported Smoking Status: Former smoker - Past Family History Mother Family Medical History: No Reported History Father Family Medical History: Cancer Medications and Allergies Home Medications Medication Instructions Recorded Confirmed Type Apixaban [Eliquis] 5 mg PO BID #60 tab 04/16/18 01/21/23 Rx Furosemide [Lasix] 20 mg PO DAILY 01/21/23 01/21/23 History Losartan/Hydrochlorothiazide 1 tab PO DAILY 01/21/23 01/22/23 History [Losartan-Hctz 100-12.5 mg Tab] Metoprolol Succinate (ER) [Toprol 75 mg PO DAILY 01/21/23 01/22/23 History Xl] Allergies Allergy/AdvReac Type Severity Reaction Status Date / Time No Known Allergies Allergy Verified 01/21/23 23:58 Physical Exam Vitals: Vital Signs Temp Pulse Resp BP Pulse Ox 01/21/23 23:50 70 22 58/39 94 L 01/21/23 23:30 85 18 79/51 93 L 01/21/23 23:02 86 18 101/56 96 01/21/23 22:30 108 H 17 80/62 96 01/21/23 22:00 86 16 85/54 95 01/21/23 21:53 110 H 16 83/59 01/21/23 21:30 112 H 17 99/76 98 01/21/23 21:00 146 H 20 86/65 96 01/21/23 20:30 144 H 23 93/74 98 01/21/23 18:47 98 F 151 H 20 83/58 98 Intake and Output 01/21/23 01/21/23 01/22/23 14:59 22:59 06:59 Intake Total 20.167 Balance 20.167 Intake: Intake, IV Titration 20.167 Amount Diltiazem 125 mg In 20.167 Sodium Chloride 0.9% 100 ml @ 5 MG/HR 5 mls/hr IV .Q24H [facility] Rx#:[id number] Other: Weight 70.307 kg Results CBC & Chem 7: 01/21/23 19:26 01/21/23 19:26 Labs: Abnormal Lab Results - Last 24 Hours (Table) 01/21/23 01/21/23 01/21/23 Range/Units 19:26 19:26 19:26 MCV 104.7 H (80.0-100.0) fL MCH 36.9 H (25.0-35.0) pg INR 1.2 H (<1.2) Sodium 134 L (137-145) mmol/L Chloride 95 L (98-107) mmol/L Carbon Dioxide 21 L (22-30) mmol/L BUN 76 H (9-20) mg/dL Creatinine 4.17 H (0.66-1.25) mg/dL Glucose 102 H (74-99) mg/dL Troponin I (0.000-0.034) ng/mL TSH 18.600 H (0.465-4.680) mIU/L 01/21/23 Range/Units 19:26 MCV (80.0-100.0) fL MCH (25.0-35.0) pg INR (<1.2) Sodium (137-145) mmol/L Chloride (98-107) mmol/L Carbon Dioxide (22-30) mmol/L BUN (9-20) mg/dL Creatinine (0.66-1.25) mg/dL Glucose (74-99) mg/dL Troponin I 0.037 H* (0.000-0.034) ng/mL TSH (0.465-4.680) mIU/L
[2023-01-22] MEDS ORDERED: MIDODRINE 5 MG TAB PO ONE (02:38)
[2023-01-22] MEDS ORDERED: SODIUM CHLORIDE 0.9% 2,000 ML IV ONE (03:07)
[2023-01-22] MEDS: SODIUM CHLORIDE 0.9% 1,000 ML IV SCH ×5 (04:15→21:03)
[2023-01-22] MEDS ORDERED: SODIUM CHLORIDE 0.9% 1,000 ML IV ONE (08:51)
[2023-01-22 08:55] LABS: Basophils % (A) 0 %; Eosinophils % (A) 1 %; Lymphocytes # (A) 1.1 k/uL (1.0-4.8); Lymphocytes % (A) 20 %; MCH 36.7 pg (25.0-35.0); MCHC 34.3 g/dL (31.0-37.0); MCV 107.3 fL (80.0-100.0); Macrocytosis Moderate; Mean Platelet Volume 9.9; Monocytes # (A) 0.3 k/uL (0-1.0); Monocytes % (A) 6 %; Neutrophils # (A) 3.7 k/uL (1.3-7.7); Neutrophils % (A) 72 %; Platelet Count 195 k/uL (150-450); RBC 3.35 m/uL (4.30-5.90); RDW 12.7 % (11.5-15.5); WBC 5.2 k/uL (3.8-10.6)
[2023-01-22] MEDS: APIXABAN 5 MG TAB PO SCH ×2 (08:56→20:22)
[2023-01-22 08:57] LABS: ALT 25 U/L (4-49); AST 28 U/L (17-59); African American GFR (CKD) 23 (>60 ml/min/1.73 sqM); Albumin 2.7 g/dL (3.5-5.0); Alkaline Phosphatase 55 U/L (38-126); Anion Gap 11 mmol/L; Blood Urea Nitrogen 59 mg/dL (9-20); Calcium 7.9 mg/dL (8.4-10.2); Carbon Dioxide 21 mmol/L (22-30); Chloride 107 mmol/L (98-107); Glucose 99 mg/dL (74-99); HGB 12.3 gm/dL (13.0-17.5); Magnesium 1.6 mg/dL (1.6-2.3); Non-African American GFR(CKD) 20 (>60 ml/min/1.73 sqM); Phosphorus 3.3 mg/dL (2.5-4.5); Potassium 3.1 mmol/L (3.5-5.1); Sodium 139 mmol/L (137-145); Total Bilirubin 0.6 mg/dL (0.2-1.3); Total Protein 5.3 g/dL (6.3-8.2)
[2023-01-22] MEDS ORDERED: POTASSIUM CHLORIDE ER 20 MEQ TAB.ER PO STA (08:58)
[2023-01-22] MEDS ORDERED: hydroCHLOROthiazide 12.5 MG CAP PO SCH (09:00)
[2023-01-22] MEDS ORDERED: LOSARTAN 50 MG TAB PO SCH (09:00)
[2023-01-22] MEDS ORDERED: FUROSEMIDE 20 MG TAB PO SCH (09:00)
--- NOTE | 2023-01-22 09:24 | P.CRDCN ---
History of Present Illness Consult date: 01/22/23 Chief complaint: A. FIB History of present illness: The patient is a pleasant 72-year-old gentleman with a past medical history significant for atrial fibrillation/paroxysmal versus permanent as well as history of mild coronary artery disease. The patient was not feeling well and he has been struggling with gout and he presented into an urgent care where he was found to be hypotensive and he was referred to the hospital. He came into the hospital. He underwent workup including a BNP and that came in to be abnormal showing acute renal failure. He received IV fluid with improvement in the kidney function. His pressure has been low. He stated that he has not been eating and drinking. He reports no cardiac vascular symptoms of any chest pain or distress chest discomfort or shortness of breath or dizziness or lightheadedness or any feeling of heart racing or fluttering or any presyncope or syncope. In the emergency department his pressure has been fluctuating but has been low. He received IV fluid with some improvement in the blood pressure. His kidney function already improved after he received the IV fluid. Currently he is on anticoagulation he stated he has been compliant with he underwent cardioversion in 2019 and heart catheterization in 2019 showed mild CAD. No recent echocardiogram. The examination is remarkable for irregular rhythm with overall controlled heart rate and diminished breathing sounds bilaterally and no edema in the lower extremity is Assessment Hypotension likely secondary to decreased oral intake Acute renal failure secondary to hypertension Atrial fibrillation with controlled heart rate Plan DC losartan Continue monitor the kidney function which has improved already Continue oral anticoagulation Obtain an echocardiogram with Doppler Follow-up with the patient Past Medical History Past Medical History: Atrial Fibrillation, CVA/TIA, GERD/Reflux, Hypertension, Myocardial Infarction ([place]) Additional Past Medical History / Comment(s): CVA-2006 no residual Last Myocardial Infarction Date:: History of Any Multi-Drug Resistant Organisms: None Reported Past Surgical History: Heart Catheterization Past Anesthesia/Blood Transfusion Reactions: No Reported Reaction Past Psychological History: No Psychological Hx Reported Smoking Status: Former smoker - Past Family History Mother Family Medical History: No Reported History Father Family Medical History: Cancer Medications and Allergies Home Medications Medication Instructions Recorded Confirmed Type Apixaban [Eliquis] 5 mg PO BID #60 tab 04/16/18 01/21/23 Rx Furosemide [Lasix] 20 mg PO DAILY 01/21/23 01/21/23 History Losartan/Hydrochlorothiazide 1 tab PO DAILY 01/21/23 01/22/23 History [Losartan-Hctz 100-12.5 mg Tab] Metoprolol Succinate (ER) [Toprol 75 mg PO DAILY 01/21/23 01/22/23 History Xl] Allergies Allergy/AdvReac Type Severity Reaction Status Date / Time No Known Allergies Allergy Verified 01/21/23 23:58 Physical Exam Vitals: Vital Signs Temp Pulse Resp BP Pulse Ox 01/22/23 06:26 80 16 134/65 95 01/22/23 06:05 68 16 104/58 94 L 01/22/23 05:27 71 18 115/75 01/22/23 04:32 77 18 83/47 94 L 01/22/23 04:09 78 16 75/54 94 L 01/22/23 03:22 80 16 66/49 95 01/22/23 02:40 79 80/39 01/22/23 02:30 102 H 64/54 01/22/23 02:08 69 16 74/46 95 01/22/23 02:00 95 75/53 01/22/23 01:30 88/59 01/22/23 01:00 86 16 82/63 94 L 01/22/23 00:30 87 17 93/60 97 01/22/23 00:00 87 18 77/54 95 01/21/23 23:50 70 22 58/39 94 L 01/21/23 23:30 85 18 79/51 93 L 01/21/23 23:02 86 18 101/56 96 01/21/23 22:30 108 H 17 80/62 96 01/21/23 22:00 86 16 85/54 95 01/21/23 21:53 110 H 16 83/59 01/21/23 21:30 112 H 17 99/76 98 01/21/23 21:00 146 H 20 86/65 96 01/21/23 20:30 144 H 23 93/74 98 01/21/23 18:47 98 F 151 H 20 83/58 98 Intake and Output 01/21/23 01/22/23 01/22/23 22:59 06:59 14:59 Intake Total 20.167 Balance 20.167 Intake: Intake, IV Titration 20.167 Amount Diltiazem 125 mg In 20.167 Sodium Chloride 0.9% 100 ml @ 5 MG/HR 5 mls/hr IV .Q24H [facility] Rx#:[id number] Other: Weight 70.307 kg Results 01/22/23 08:05 01/22/23 08:05 Cardiac Enzymes 01/21/23 01/21/23 01/22/23 Range/Units 19:26 19: 08:05 AST 33 28 (17-59) U/L Troponin I 0.037 H* (0.000-0.034) ng/mL 01/22/23 Range/Units 08:05 AST (17-59) U/L Troponin I 0.034 (0.000-0.034) ng/mL Coagulation 01/21/23 Range/Units 19:26 PT 12.5 (10.0-12.5) sec APTT 26.3 (22.0-30.0) sec CBC 01/21/23 01/22/23 Range/Units 19:26 08:05 WBC 7.1 5.2 (3.8-10.6) k/uL RBC 4.30 3.35 L (4.30-5.90) m/uL Hgb 15.8 12.3 L D (13.0-17.5) gm/dL Hct 45.0 36.0 L (39.0-53.0) % Plt Count 302 195 (150-450) k/uL Comprehensive Metabolic Panel 01/21/23 01/22/23 Range/Units 19:26 08:05 Sodium 134 L 139 (137-145) mmol/L Potassium 3.8 3.1 L (3.5-5.1) mmol/L Chloride 95 L 107 (98-107) mmol/L Carbon Dioxide 21 L 21 L (22-30) mmol/L BUN 76 H 59 H (9-20) mg/dL Creatinine 4.17 H 3.05 H (0.66-1.25) mg/dL Glucose 102 H 99 (74-99) mg/dL Calcium 10.2 7.9 L (8.4-10.2) mg/dL AST 33 28 (17-59) U/L ALT 31 25 (4-49) U/L Alkaline Phosphatase 77 55 (38-126) U/L Total Protein 7.1 5.3 L (6.3-8.2) g/dL Albumin 4.2 2.7 L (3.5-5.0) g/dL Current Medications Generic Name Dose Route Start Last Admin Trade Name Freq PRN Reason Stop Dose Admin Acetaminophen 650 mg 01/21/23 21:10 Acetaminophen Tab 325 Mg Tab PO Q6HR PRN Mild Pain or Fever > 100.5 Apixaban 5 mg 01/22/23 09:00 01/22/23 08:56 Apixaban 5 Mg Tab PO 5 mg BID BASSEM Administration Protocol Hydrochlorothiazide 12.5 mg 01/22/23 09:00 Hydrochlorothiazide 12.5 Mg Cap PO DAILY BASSEM Diltiazem HCl 125 mg/ Sodium 125 mls @ 5 mls/hr 01/21/23 20:00 01/22/23 00:00 Chloride IV 0 mg/hr .Q24H BASSEM 0 mls/hr Infusion 5 MG/HR Sodium Chloride 1,000 mls @ 125 mls/hr 01/22/23 04:10 01/22/23 04:15 Saline 0.9% IV 125 mls/hr .Q8H BASSEM Administration Sodium Chloride 1,000 mls @ 999 mls/hr 01/22/23 08:51 01/22/23 08:56 Saline 0.9% IV 01/22/23 09:51 999 mls/hr .Q1H1M ONE Administration Lorazepam 0.5 mg 01/21/23 21:10 Lorazepam 0.5 Mg Tab PO Q6HR PRN Anxiety Metoprolol Succinate 75 mg 01/22/23 09:00 Metoprolol Succinate (Er) 25 Mg Tab.Er.24h PO DAILY BASSEM Naloxone HCl 0.2 mg 01/21/23 21:10 Naloxone 0.4 Mg/Ml 1 Ml Vial IV Q2M PRN Opioid Reversal Pantoprazole Sodium 40 mg 01/21/23 21:13 Pantoprazole 40 Mg Tablet PO AC-[id number] PRN Heartburn Temazepam 15 mg 01/22/23 00:15 01/22/23 00:51 Temazepam 7.5 Mg Cap PO 15 mg HS PRN Administration Insomnia Intake and Output 01/21/23 01/22/23 01/22/23 22:59 06:59 14:59 Intake Total 20.167 Balance 20.167 Intake: Intake, IV Titration 20.167 Amount Diltiazem 125 mg In 20.167 Sodium Chloride 0.9% 100 ml @ 5 MG/HR 5 mls/hr IV .Q24H [facility] Rx#:[id number] Other: Weight 70.307 kg 01/22/23 08:05 01/22/23 08:05
[2023-01-22] MEDS: METOPROLOL SUCCINATE (ER) 25 MG TAB.ER.24H PO SCH (11:49)
[2023-01-22 11:53] LABS: Appearance,Urine Clear (Clear); Bilirubin,Urine Negative (Negative); Blood,Urine Negative (Negative); Color,Urine Colorless; Glucose,Urine (UA) 3+ (Negative); Ketones,Urine Negative (Negative); Leukocyte Esterase,Urine Negative (Negative); Nitrite,Urine Negative (Negative); Protein,Urine Negative (Negative); Specific Gravity,Urine 1.011 (1.001-1.035); Urobilinogen,Urine <2.0 mg/dL (<2.0)
--- NOTE | 2023-01-22 15:01 | P.NPCON ---
History of Present Illness - Reason for Consult acute renal failure, chronic renal failure - History of Present Illness Reason for consultation: Acute kidney injury on chronic kidney disease History of present illness: Patient is a 72-year-old male seen in renal consultation for acute kidney injury on chronic kidney disease. Patient has chronic kidney disease stage IIIA with baseline creatinine near 1.3 from November 2021. This admission patient's creatinine was 4.17 and is down to 3.05 today. Patient states he was feeling dizzy for the last 2 months and was also having gout flare and went to urgent care. He was noted to be in A. fib with RVR and was sent to the hospital for further evaluation. Patient denies losing consciousness. He has been voiding but states he is voiding small amounts. He has waited so far 600 mL as of this morning around 10 AM. He's been having loose bowel movements for about one week but improved. Oral intake has been good. Denies use of nonsteroidals. Denies family history of renal disease. Patient did receive fluid boluses on admission as his blood pressure was in the systolic 70s. Patient is maintained on Cardizem drip. He's been followed by cardiology. He was taking losartan as well as thiazide diuretic outpatient. I also see Lasix and his home medication list. No history of diabetes. Vital signs are stable. General: No acute distress. HEENT: Head exam is unremarkable. LUNGS: No audible rhonchi or wheezes. HEART: Irregular rate and rhythm. ABDOMEN: Nontender. EXTREMITITES: No edema. Past Medical History Past Medical History: Atrial Fibrillation, CVA/TIA, GERD/Reflux, Hypertension, Myocardial Infarction ([place]) Additional Past Medical History / Comment(s): CVA-2006 no residual Last Myocardial Infarction Date:: History of Any Multi-Drug Resistant Organisms: None Reported Past Surgical History: Heart Catheterization Past Anesthesia/Blood Transfusion Reactions: No Reported Reaction Past Psychological History: No Psychological Hx Reported Smoking Status: Former smoker - Past Family History Mother Family Medical History: No Reported History Father Family Medical History: Cancer Medications and Allergies Home Medications Medication Instructions Recorded Confirmed Type Apixaban [Eliquis] 5 mg PO BID #60 tab 04/16/18 01/21/23 Rx Furosemide [Lasix] 20 mg PO DAILY 01/21/23 01/21/23 History Losartan/Hydrochlorothiazide 1 tab PO DAILY 01/21/23 01/22/23 History [Losartan-Hctz 100-12.5 mg Tab] Metoprolol Succinate (ER) [Toprol 75 mg PO DAILY 01/21/23 01/22/23 History Xl] Allergies Allergy/AdvReac Type Severity Reaction Status Date / Time No Known Allergies Allergy Verified 01/21/23 23:58 Physical Exam Vitals: Vital Signs Temp Pulse Pulse Resp BP BP BP 01/22/23 11:49 97/72 01/22/23 11:43 73 16 87/65 01/22/23 08:00 98.1 F 82 18 75/38 77/59 01/22/23 06:26 80 16 134/65 01/22/23 06:05 68 16 104/58 01/22/23 05:27 71 18 115/75 01/22/23 04:32 77 18 83/47 01/22/23 04:09 78 16 75/54 01/22/23 03:22 80 16 66/49 01/22/23 02:40 79 80/39 01/22/23 02:30 102 H 64/54 01/22/23 02:08 69 16 74/46 01/22/23 02:00 95 75/53 01/22/23 01:30 88/59 01/22/23 01:00 86 16 82/63 01/22/23 00:30 87 17 93/60 01/22/23 00:00 87 18 77/54 01/21/23 23:50 70 22 58/39 01/21/23 23:30 85 18 79/51 01/21/23 23:02 86 18 101/56 01/21/23 22:30 108 H 17 80/62 01/21/23 22:00 86 16 85/54 01/21/23 21:53 110 H 16 83/59 01/21/23 21:30 112 H 17 99/76 01/21/23 21:00 146 H 20 86/65 01/21/23 20:30 144 H 23 93/74 01/21/23 18:47 98 F 151 H 20 83/58 Pulse Ox 01/22/23 11:49 01/22/23 11:43 97 01/22/23 08:00 98 01/22/23 06:26 95 01/22/23 06:05 94 L 01/22/23 05:27 01/22/23 04:32 94 L 01/22/23 04:09 94 L 01/22/23 03:22 95 01/22/23 02:40 01/22/23 02:30 01/22/23 02:08 95 01/22/23 02:00 01/22/23 01:30 01/22/23 01:00 94 L 01/22/23 00:30 97 01/22/23 00:00 95 01/21/23 23:50 94 L 01/21/23 23:30 93 L 01/21/23 23:02 96 01/21/23 22:30 96 01/21/23 22:00 95 01/21/23 21:53 01/21/23 21:30 98 01/21/23 21:00 96 01/21/23 20:30 98 01/21/23 18:47 98 Intake and Output 01/21/23 01/22/23 01/22/23 22:59 06:59 14:59 Intake Total 20.167 480 Output Total 1050 Balance 20.167 -570 Intake: Intake, IV Titration 20.167 Amount Diltiazem 125 mg In 20.167 Sodium Chloride 0.9% 100 ml @ 5 MG/HR 5 mls/hr IV .Q24H [facility] Rx#:[id number] Oral 480 Output: Urine 1050 Other: # Voids 2 Weight 70.307 kg Results - Lab Results Most recent lab results Calcium 7.9 mg/dL (8.4-10.2) L 01/22/23 08:05 Phosphorus 3.3 mg/dL (2.5-4.5) 01/22/23 08:05 Magnesium 1.6 mg/dL (1.6-2.3) 01/22/23 08:05 01/22/23 08:05 01/22/23 08:05 Assessment and Plan Plan: Assessment: 1. Acute kidney injury secondary to ATN secondary to hypotension. Creatinine 4.17 on admission and is 3.05 today. UA benign. No hydronephrosis noted on kidney ultrasound. 2. Chronic kidney disease stage IIIa secondary to nephrosclerosis with baseline creatinine near 1.3 in November 2021. 3. A. fib with RVR maintained on Cardizem drip. Cardiology consulted. 4. Hypokalemia from poor intake and use of diuretic outpatient. Plan: Maintain IV fluids. Hold diuretics and antihypertensives. Potassium replaced. Avoid nephrotoxins. Check bladder scan to rule out urinary retention. Continue to monitor renal function and urine output. Follow-up echocardiogram. Thank you for the consultation. I will continue to follow the patient did during his hospital stay.
--- NOTE | 2023-01-22 18:34 | P.PN ---
Subjective Progress Note Date: 01/22/23 Hospital course: Patient is a very pleasant 72-year-old male with a past medical history of CAD with stents, paroxysmal atrial fibrillation on anticoagulation with Eliquis, hypertension, end stage IIIA chronic kidney disease with baseline creatinine of 1.3. Patient presented to the emergency department on 01/21/23 with a chief complaint of dizziness/lightheadedness. Upon arrival to our facility patient was found to be significantly tachycardic with heart rate 150s. EKG completed showing A. fib RVR 146 bpm. Vital signs as follows heart rate 151, blood pressure 83/58, respiratory rate 20, temp 98.0F, SpO2 of 90% on room air. Chest x-ray completed negative for acute cardiopulmonary process. Patient was given a Cardizem bolus followed by initiation of Cardizem infusion. Labs were completed and reviewed. CBC showing macrocytosis with MCV of 104.7. Coagulation profile showing slightly elevated INR 1.2 otherwise normal findings. BMP revealing hyponatremia with sodium of 134, hypochloremia with chloride of 95, hypocarbia with bicarb is 21, elevated anion gap of 18, and acute renal failure on chronic kidney disease with BUN of 76, creatinine of 4.17, and GFR 14 with baseline creatinine of 1.3. Physical exam: Vital signs reviewed and stable. General: Nontoxic, no distress and appears stated age. Derm: Skin warm and dry, normal coloration for ethnicity. Head: Atraumatic, normocephalic and symmetric. Eyes: EOMs intact, no lid lag, and anicteric sclera Mouth: no lip lesions, mucus membranes moist Cardiovascular: Irregularly irregular, no murmur, positive posterior tibial pulses bilaterally, and cap refill < 2 seconds. Lungs: Respirations even, regular, and unlabored on room air. Lungs CTA bilaterally, no rhonchi, no rales, no wheezing, and no accessory muscle usage. Abdominal: soft, nontender to palpation, no guarding, no appreciable organomegal y Ext: ROM intact. No gross muscle atrophy, no edema, no contractures Neuro: Speech clear, face symmetrical and CN II-XII grossly intact with no noted focal neuro deficits Psych: Alert and oriented to person, place, time, and situation. Appropriate and pleasant affect. Assessment and Plan of Care: Acute renal failure on stage IIIa chronic kidney disease, likely cardiorenal syndrome secondary to hypoperfusion resulting from RVR and episodes of hypotension Metabolic acidosis secondary to acute kidney injury -Nephrology following -Patient was given 1 L bolus for morning pressure of 75/38 and to continue with maintenance IV fluid hydration with 0.9% normal saline at 100 mL per hour. -Continued close monitoring of renal function with repeat morning BMP -Reviewed renal ultrasound in radiology report stating bilateral renal calculi with no evidence for obstructive uropathy or hydronephrosis. Atrial fibrillation with RVR Elevated troponin, type II and STEMI believed to be secondary to rapid ventricular rate and hypotension resulting in hypoperfusion Hypotension -Patient remains in atrial fibrillation currently with a controlled ventricular rate at this time. -Cardiology following, appreciate recommendations. -Patient to remain on continuous telemetry monitoring -Rate was controlled and patient was hypotensive, patient may resume daily metoprolol at 75 mg daily once blood pressures are stabilized. -Continue anticoagulation with Eliquis 5 mg twice daily Macrocytosis Orders placed for B12 and folate levels. CODE STATUS: Full code DVT prophylaxis: Eliquis Anticipated discharge date: Clinical course to determine Anticipated discharge place: Clinical course to determine Patient was seen independently by Nurse Pracitioner. This document was prepared using 5 CUPS and some sugar dictation software. Please allow for errors in hydraulic press in operator, while rare they do occur. Rishi Smith NP rendered care for this patient independently, reviewed the findings and plan as documented in the note above. I did not physically speak with or examine the patient on this date. Objective - Vital Signs Vital signs: Vital Signs Temp 98 F 01/21/23 18:47 Pulse 80 01/22/23 06:26 Resp 16 01/22/23 06:26 BP 134/65 01/22/23 06:26 Pulse Ox 95 01/22/23 06:26 FiO2 Intake & Output 01/21/23 01/22/23 01/22/23 18:59 06:59 18:59 Intake Total 20.167 Balance 20.167 Weight 70.307 kg Intake: Intake, IV Titration 20.167 Amount Diltiazem 125 mg In 20.167 Sodium Chloride 0.9% 100 ml @ 5 MG/HR 5 mls/hr IV .Q24H [facility] Rx#:[id number] - Labs CBC & Chem 7: 01/22/23 08:05 01/22/23 08:05 Labs: Abnormal Lab Results - Last 24 Hours (Table) 01/21/23 01/21/23 01/21/23 Range/Units 19:26 19:26 19:26 MCV 104.7 H (80.0-100.0) fL MCH 36.9 H (25.0-35.0) pg INR 1.2 H (<1.2) Sodium 134 L (137-145) mmol/L Chloride 95 L (98-107) mmol/L Carbon Dioxide 21 L (22-30) mmol/L BUN 76 H (9-20) mg/dL Creatinine 4.17 H (0.66-1.25) mg/dL Glucose 102 H (74-99) mg/dL Troponin I (0.000-0.034) ng/mL TSH 18.600 H (0.465-4.680) mIU/L 01/21/23 Range/Units 19:26 MCV (80.0-100.0) fL MCH (25.0-35.0) pg INR (<1.2) Sodium (137-145) mmol/L Chloride (98-107) mmol/L Carbon Dioxide (22-30) mmol/L BUN (9-20) mg/dL Creatinine (0.66-1.25) mg/dL Glucose (74-99) mg/dL Troponin I 0.037 H* (0.000-0.034) ng/mL TSH (0.465-4.680) mIU/L
[2023-01-23] MEDS: TEMAZEPAM 7.5 MG CAP PO PRN ×2 (00:15→23:42)
--- NOTE | 2023-01-23 06:35 | XR ---
EXAM: XR Bilateral Hips With Pelvis When Performed, 2 Views CLINICAL HISTORY: ITS.REASON XR Reason: fall TECHNIQUE: Frontal view of the bilateral hips with pelvis when performed. COMPARISON: No relevant prior studies available. IMPRESSION: 1. Diffuse bone demineralization limits evaluation. 2. Findings suspicious for chronic right greater trochanteric avulsion fracture. 3. No evidence of acutely displaced fracture or dislocation within the right or left hips. Consider MRI if there is further concern. 4. Moderate to severe right hip osteoarthrosis with mild left hip osteoarthrosis.
--- NOTE | 2023-01-23 06:35 | XR ---
EXAM: XR Right Hip With Pelvis When Performed, 1 View CLINICAL HISTORY: ITS.REASON XR Reason: fall TECHNIQUE: Frontal view of the right hip with pelvis when performed. COMPARISON: No relevant prior studies available. FINDINGS: Bones/joints: Unremarkable. No acute fracture. No dislocation. Soft tissues: Unremarkable. IMPRESSION: Normal right hip x-ray.
--- NOTE | 2023-01-23 07:28 | CT ---
EXAM: CT Head Without Intravenous Contrast CLINICAL HISTORY: ITS.REASON CT Reason: fall TECHNIQUE: Axial computed tomography images of the head/brain without intravenous contrast. CTDI is 49.2 mGy and DLP is 1212.4 mGy-cm. This CT exam was performed using one or more of the following dose reduction techniques: automated exposure control, adjustment of the mA and/or kV according to patient size, and/or use of iterative reconstruction technique. COMPARISON: No relevant prior studies available. FINDINGS: Brain: There is a remote ischemic injury of the left frontal lobe with encephalomalacia and gliosis. Remote ischemic injury of the right occipital lobe with encephalomalacia and gliosis. No hemorrhage. No significant white matter disease. No edema. Ventricles: Unremarkable. No ventriculomegaly. Bones/joints: Extensive dental caries with several maxillary teeth demonstrating periapical lucencies concerning for periapical abscesses. Recommend dental consult. No acute fracture. Soft tissues: Bilateral lens replacements. Sinuses: Chronic left maxillary and ethmoid sinusitis. No acute sinusitis. Mastoid air cells: Unremarkable as visualized. No mastoid effusion. IMPRESSION: No evidence of acute intracranial pathology.
[2023-01-23] MEDS: METOPROLOL SUCCINATE (ER) 25 MG TAB.ER.24H PO SCH (08:24)
[2023-01-23] MEDS: APIXABAN 5 MG TAB PO SCH ×2 (08:24→20:07)
[2023-01-23 08:45] LABS: HCT 35.8 % (39.0-53.0); HGB 12.2 gm/dL (13.0-17.5); MCH 37.2 pg (25.0-35.0); MCHC 34.1 g/dL (31.0-37.0); Macrocytosis Moderate; Platelet Count 166 k/uL (150-450); RBC 3.28 m/uL (4.30-5.90); RDW 12.3 % (11.5-15.5); WBC 4.2 k/uL (3.8-10.6)
[2023-01-23 08:52] LABS: African American GFR (CKD) 33 (>60 ml/min/1.73 sqM); Albumin 2.7 g/dL (3.5-5.0); Anion Gap 10 mmol/L; Blood Urea Nitrogen 40 mg/dL (9-20); Calcium 8.2 mg/dL (8.4-10.2); Carbon Dioxide 19 mmol/L (22-30); Chloride 110 mmol/L (98-107); Globulin 2.6 g/dL; Glucose 90 mg/dL (74-99); Non-African American GFR(CKD) 29 (>60 ml/min/1.73 sqM); Potassium 3.4 mmol/L (3.5-5.1); Sodium 139 mmol/L (137-145); Total Protein 5.3 g/dL (6.3-8.2)
[2023-01-23 08:53] LABS: ALT 25 U/L (4-49); AST 30 U/L (17-59); Alkaline Phosphatase 64 U/L (38-126); Magnesium 1.4 mg/dL (1.6-2.3); Total Bilirubin 0.5 mg/dL (0.2-1.3)
--- NOTE | 2023-01-23 12:18 | P.PN ---
Subjective Progress Note Date: 01/23/23 Principal diagnosis: Hypotension The patient is a pleasant 72-year-old gentleman with a past medical history significant for atrial fibrillation/paroxysmal versus permanent as well as history of mild coronary artery disease. The patient was not feeling well and he has been struggling with gout and he presented into an urgent care where he was found to be hypotensive and he was referred to the hospital. He came into the hospital. He underwent workup including a BNP and that came in to be abnormal showing acute renal failure. He received IV fluid with improvement in the kidney function. His pressure has been low. He stated that he has not been eating and drinking. He reports no cardiac vascular symptoms of any chest pain or distress chest discomfort or shortness of breath or dizziness or lightheadedness or any feeling of heart racing or fluttering or any presyncope or syncope. In the emergency department his pressure has been fluctuating but has been low. He received IV fluid with some improvement in the blood pressure. His kidney function already improved after he received the IV fluid. Currently he is on anticoagulation he stated he has been compliant with he underwent cardioversion in 2019 and heart catheterization in 2019 showed mild CAD. No rec ent echocardiogram. The examination is remarkable for irregular rhythm with overall controlled heart rate and diminished breathing sounds bilaterally and no edema in the lower extremities 01/23/2023 The patient was seen and evaluated this morning. Overall he is feeling better. The pressure appeared to be stable. Losartan/hydrocortisone side continues to be on hold at this point for the margin a low blood pressure as well as for the renal failure. The kidney function has been trending in the right direction. The patient reports no pain in the chest and no shortness of breath at this poin t. From the cardiovascular standpoint of view, would continue the current medical regimen including oral anticoagulation. Follow up on the echocardiogram which was ordered. Follow-up with the patient. The examination is remarkable for only diminished breathing sounds bilaterally. Assessment Hypotension likely secondary to decreased oral intake. The hypotension has improved Acute renal failure secondary to hypertension. The renal failure is standing in the right direction Atrial fibrillation with controlled heart rate Plan Continue holding losartan losartan/hydrochlorothiazide Continue monitor the kidney function which has improved already Continue oral anticoagulation Follow-up with the echocardiogram Follow-up with the patient Objective - Vital Signs Vital signs: Vital Signs Temp 97.7 F 01/23/23 07:05 Pulse 74 01/23/23 08:00 Resp 17 01/23/23 08:00 BP 97/63 01/23/23 07:05 Pulse Ox 98 01/23/23 07:05 FiO2 Intake & Output 01/22/23 01/23/23 01/23/23 18:59 06:59 18:59 Intake Total 480 Output Total 1050 650 Balance -570 -650 Weight 74.5 kg Intake: Oral 480 Output: Urine 1050 650 Other: # Voids 2 - Labs CBC & Chem 7: 01/23/23 06:43 01/23/23 06:43 Labs: Abnormal Lab Results - Last 24 Hours (Table) 01/23/23 01/23/23 Range/Units 06:43 06:43 RBC 3.28 L (4.30-5.90) m/uL Hgb 12.2 L (13.0-17.5) gm/dL Hct 35.8 L (39.0-53.0) % MCV 109.0 H (80.0-100.0) fL MCH 37.2 H (25.0-35.0) pg Potassium 3.4 L (3.5-5.1) mmol/L Chloride 110 H (98-107) mmol/L Carbon Dioxide 19 L (22-30) mmol/L BUN 40 H (9-20) mg/dL Creatinine 2.23 H (0.66-1.25) mg/dL Calcium 8.2 L (8.4-10.2) mg/dL Magnesium 1.4 L (1.6-2.3) mg/dL Total Protein 5.3 L (6.3-8.2) g/dL Albumin 2.7 L (3.5-5.0) g/dL
--- NOTE | 2023-01-23 13:24 | P.PN ---
Subjective Progress Note Date: 01/23/23 Follow-up for acute kidney injury. Urine output documented 1.7 L in the last 24 hours. Objective - Vital Signs Vital signs: Vital Signs Temp 97.7 F 01/23/23 07:05 Pulse 74 01/23/23 08:00 Resp 17 01/23/23 08:00 BP 97/63 01/23/23 07:05 Pulse Ox 98 01/23/23 07:05 FiO2 Intake & Output 01/22/23 01/23/23 01/23/23 18:59 06:59 18:59 Intake Total 480 Output Total 1050 650 Balance -570 -650 Weight 74.5 kg Intake: Oral 480 Output: Urine 1050 650 Other: # Voids 2 - Exam No acute distress S1-S2 heard Lungs clear Abdomen soft No edema - Labs CBC & Chem 7: 01/23/23 06:43 01/23/23 06:43 Labs: Abnormal Lab Results - Last 24 Hours (Table) 01/23/23 01/23/23 Range/Units 06:43 06:43 RBC 3.28 L (4.30-5.90) m/uL Hgb 12.2 L (13.0-17.5) gm/dL Hct 35.8 L (39.0-53.0) % MCV 109.0 H (80.0-100.0) fL MCH 37.2 H (25.0-35.0) pg Potassium 3.4 L (3.5-5.1) mmol/L Chloride 110 H (98-107) mmol/L Carbon Dioxide 19 L (22-30) mmol/L BUN 40 H (9-20) mg/dL Creatinine 2.23 H (0.66-1.25) mg/dL Calcium 8.2 L (8.4-10.2) mg/dL Magnesium 1.4 L (1.6-2.3) mg/dL Total Protein 5.3 L (6.3-8.2) g/dL Albumin 2.7 L (3.5-5.0) g/dL Assessment and Plan Assessment: #1 acute kidney injury secondary to ATN. -Urine analysis [place]. #2 on a kidney disease stage III with a baseline creatinine of 1.3 MG per DL. #3 bilateral renal lesions. #4 hypokalemia secondary to poor intake and diuretic use. Plan: #1 renal function improving. #2 continue with IV fluids. #3 MRI for further evaluation of the kidneys as outpatient. #4 avoid nephrotoxic agents and hypotensive episodes.
--- NOTE | 2023-01-23 14:03 | CA ---
Transthoracic Echo Report Name: Kp Marina Age: 72 Gender: M : 1950 Exam Date: 01/22/2023 13:42 Exam Location: [facility] Ht (in): 67 Wt (lb): 155 Ordering Physician: Gurinder Mccullough MD ([id number]) Attending/Referring Phys: Customer Service Agent Glenny Sage RDCS Procedure CPT: Indications: a. fib Cardiac Hx: Technical Quality: Technically difficult study Contrast 1: Definity Total Dose (mL): 2 Contrast 2: Total Dose (mL): MEASUREMENTS (Male / Female) Normal Values 2D ECHO LV Diastolic Diameter PLAX 4.4 cm 4.2 - 5.9 / 3.9 - 5.3 cm LV Systolic Diameter PLAX 3.5 cm IVS Diastolic Thickness 1.0 cm 0.6 - 1.0 / 0.6 - 0.9 cm LVPW Diastolic Thickness 1.2 cm 0.6 - 1.0 / 0.6 - 0.9 cm LV Relative Wall Thickness 0.5 RV Internal Dim ED PLAX 3.7 cm LA Volume 104.6 cm??? 18 - 58 / 22 - 52 cm??? LA Volume Index 57.1 cm???/m??? 16 - 28 cm???/m??? M-MODE Aortic Root Diameter MM 3.3 cm LA Systolic Diameter MM 5.2 cm LA Ao Ratio MM 1.6 AV Cusp Separation MM 1.9 cm DOPPLER AV Peak Velocity 92.0 cm/s AV Peak Gradient 3.4 mmHg AV Mean Velocity 67.3 cm/s AV Mean Gradient 2.0 mmHg AV Velocity Time Integral 15.9 cm LVOT Peak Velocity 63.3 cm/s LVOT Peak Gradient 1.6 mmHg LVOT Velocity Time Integral 12.6 cm MV Area PHT 2.7 cm??? Mitral E Point Velocity 77.0 cm/s Mitral A Point Velocity 35.4 cm/s Mitral E to A Ratio 2.2 MV Deceleration Time 279.9 ms MV E' Velocity 6.9 cm/s Mitral E to MV E' Ratio 11.1 TR Peak Velocity 285.7 cm/s TR Peak Gradient 32.6 mmHg Right Ventricular Systolic Press 40.3 mmHg FINDINGS Left Ventricle Left ventricular wall thickness normal. Mild left ventricular dilatation. Reduced global left ventricular systolic function. Left ventricular ejection fraction is estimated at 35-40 %. Right Ventricle Severe right ventricular dilatation. Reduced right ventricular global systolic function. Mild pulmonary hypertension. Right Atrium Right atrial dilatation. Left Atrium Severely increased left atrial volume. Mildly increased left atrial area. Mitral Valve Mild mitral annular calcification. Mitral valve thickened. Moderate mitral regurgitation. Aortic Valve No aortic valve stenosis or regurgitation. Tricuspid Valve Structurally normal tricuspid valve. [id number] tricuspid regurgitation. Pulmonic Valve Pulmonic valve not well visualized. Pericardium No pericardial effusion. Aorta Normal size aortic root and proximal ascending aorta. CONCLUSIONS Technically difficult study for interpretation Impaired LV function. The ejection fraction is 35-40% Moderate mitral regurgitation Moderate to severe tricuspid regurgitation Severe RV enlargement Previewed by: Dr. Gurinder Mccullough MD (Electronically Signed) Final Date: 23 January 2023 14:02
[2023-01-23] MEDS ORDERED: POTASSIUM CHLORIDE ER 20 MEQ TAB.ER PO STA (14:35)
--- NOTE | 2023-01-23 14:46 | P.PN ---
Subjective Progress Note Date: 01/23/23 Hospital course: Patient is a very pleasant 72-year-old male with a past medical history of CAD with stents, paroxysmal atrial fibrillation on anticoagulation with Eliquis, hypertension, end stage IIIA chronic kidney disease with baseline creatinine of 1.3. Patient presented to the emergency department on 01/21/23 with a chief complaint of dizziness/lightheadedness. Upon arrival to our facility patient was found to be significantly tachycardic with heart rate 150s. EKG completed showing A. fib RVR 146 bpm. Vital signs as follows heart rate 151, blood pressure 83/58, respiratory rate 20, temp 98.0F, SpO2 of 90% on room air. Chest x-ray completed negative for acute cardiopulmonary process. Patient was given a Cardizem bolus followed by initiation of Cardizem infusion. Labs were completed and reviewed. CBC showing macrocytosis with MCV of 104.7. Coagulation profile showing slightly elevated INR 1.2 otherwise normal findings. BMP revealing hyponatremia with sodium of 134, hypochloremia with chloride of 95, hypocarbia with bicarb is 21, elevated anion gap of 18, and acute renal failure on chronic kidney disease with BUN of 76, creatinine of 4.17, and GFR 14 with baseline creatinine of 1.3. Physical exam: Patient seen and fully evaluated at bedside this morning. Patient preparing to watch the football game stating he feels fine this morning. He denies having any questions, needs, or complaints. Patient updated on lab results and plan for continued IV fluid hydration for an additional 24 hours and if continued improvement likely discharge home tomorrow. Vital signs reviewed and stable. General: Nontoxic, no distress and appears stated age. Derm: Skin warm and dry, normal coloration for ethnicity. Head: Atraumatic, normocephalic and symmetric. Eyes: EOMs intact, no lid lag, and anicteric sclera Mouth: no lip lesions, mucus membranes moist Cardiovascular: Irregularly irregular, no murmur, positive posterior tibial pulses bilaterally, and cap refill < 2 seconds. Lungs: Respirations even, regular, and unlabored on room air. Lungs CTA ida aterally, no rhonchi, no rales, no wheezing, and no accessory muscle usage. Abdominal: soft, nontender to palpation, no guarding, no appreciable organomegaly Ext: ROM intact. No gross muscle atrophy, no edema, no contractures Neuro: Speech clear, face symmetrical and CN II-XII grossly intact with no noted focal neuro deficits Psych: Alert and oriented to person, place, time, and situation. Appropriate and pleasant affect. Assessment and Plan of Care: Acute renal failure on stage IIIa chronic kidney disease, likely cardiorenal syndrome secondary to hypoperfusion resulting from RVR and episodes of hypotension Metabolic acidosis secondary to acute kidney injury -Nephrology following, reviewed documentation in chart -Renal function improving with IV fluid hydration currently BUN 40, creatinine 2.23, and GFR of 29. -Continue IV fluid hydration with 0.9% normal saline at 100 mL per hour. -Continued close monitoring of renal function with repeat morning BMP -Reviewed renal ultrasound in radiology report stating bilateral renal calculi with no evidence for obstructive uropathy or hydronephrosis. Atrial fibrillation with RVR Elevated troponin, type II and STEMI believed to be secondary to rapid ventricular rate and hypotension resulting in hypoperfusion Hypotension -Patient remains in atrial fibrillation currently with a controlled ventricular rate at this time. -Cardiology following, and discussed plan of care with Dr. Mccullough. -Patient to remain on continuous telemetry monitoring -Rate was controlled and patient was hypotensive, patient may resume daily metoprolol at 75 mg daily once blood pressures are stabilized. -Continue anticoagulation with Eliquis 5 mg twice daily Hypokalemia Hypomagnesemia -Potassium 3.4 and orders placed for K Dur 40 mEq 1 dose. -Magnesium 1.4 orders placed for magnesium sulfate 3 g IVPB 1 dose. -Will monitor closely with repeat a.m. labs. Macrocytosis Vitamin B12 levels 337. Data reviewed: Labs reviewed. CBC showing consistent macrocytic anemia with hemoglobin stable at 12.2 and MCV 109. B12 337. BMP revealing hyperkalemia with potassium of 3.4, hypochloremia with chloride of 110, and hypocarbia with bicarb of 19. Renal function showing improvement but remains elevated with BUN of 40, cre atinine 2.23, and GFR of 29 (which is showing significant improvement with IV fluid hydration from initial BUN of 76, creatinine of 4.17, and GFR 14). Vital signs reviewed. Blood pressure 97/63, heart rate 74, respiratory rate 17, temp 97.7F, SpO2 of 90% on room air. CODE STATUS: Full code DVT prophylaxis: Eliquis Anticipated discharge date: Clinical course to determine Anticipated discharge place: Clinical course to determine Patient was seen independently by Nurse Pracitioner. This document was prepared using [employer] dictation software. Please allow for errors in bb shot packer, while rare they do occur. Rishi Smith KOHINOOR OPERATOR rendered care for this patient independently, reviewed the findings and plan as documented in the note above. I did not physically speak with or examine the patient on this date. Objective - Vital Signs Vital signs: Vital Signs Temp 97.7 F 01/23/23 07:05 Pulse 74 01/23/23 07:05 Resp 17 01/23/23 07:05 BP 97/63 01/23/23 07:05 Pulse Ox 98 01/23/23 07:05 FiO2 Intake & Output 01/22/23 01/23/23 01/23/23 18:59 06:59 18:59 Intake Total 480 Output Total 1050 650 Balance -570 -650 Weight 74.5 kg Intake: Oral 480 Output: Urine 1050 650 Other: # Voids 2 - Labs CBC & Chem 7: 01/23/23 06:43 01/24/23 07:55 Labs: Abnormal Lab Results - Last 24 Hours (Table) 01/22/23 01/22/23 01/22/23 Range/Units 08:05 08:05 09:52 RBC 3.35 L (4.30-5.90) m/uL Hgb 12.3 L D (13.0-17.5) gm/dL Hct 36.0 L (39.0-53.0) % MCV 107.3 H (80.0-100.0) fL MCH 36.7 H (25.0-35.0) pg Potassium 3.1 L (3.5-5.1) mmol/L Carbon Dioxide 21 L (22-30) mmol/L BUN 59 H (9-20) mg/dL Creatinine 3.05 H (0.66-1.25) mg/dL Calcium 7.9 L (8.4-10.2) mg/dL Total Protein 5.3 L (6.3-8.2) g/dL Albumin 2.7 L (3.5-5.0) g/dL Urine Glucose (UA) 3+ H (Negative)
[2023-01-23] MEDS: MAGNESIUM SULFATE-D5W PMX 1 GM in DEXTROSE/WATER 1 100ML.BAG IVPB SCH ×3 (15:46→20:06)
[2023-01-23] MEDS: SODIUM CHLORIDE 0.9% 1,000 ML IV SCH ×2 (15:46→20:07)
[2023-01-23] MEDS: ACETAMINOPHEN TAB 325 MG TAB PO PRN (20:58)
[2023-01-24] MEDS ORDERED: MORPHINE SULFATE 2 MG/ML SYRINGE IVP STA (03:03)
[2023-01-24] MEDS: METOPROLOL SUCCINATE (ER) 25 MG TAB.ER.24H PO SCH (09:57)
[2023-01-24] MEDS: APIXABAN 5 MG TAB PO SCH ×2 (09:57→20:12)
[2023-01-24 11:02] VITALS: BMI 26.2
[2023-01-24 12:07] LABS: BUN/Creat Ratio 12.63 Ratio (12.00-20.00); Chloride 111 mmol/L (96-109); Glucose 95 mg/dL (70-110); Magnesium 1.9 mg/dL (1.5-2.4); Sodium 141 mmol/L (135-145)
[2023-01-24 12:08] LABS: ALT 24 U/L (10-49); AST 21 U/L (14-35); Albumin/Globulin Ratio 1.58 Ratio (1.60-3.17); Alkaline Phosphatase 55 U/L (41-126); Calcium 8.4 mg/dL (8.7-10.3); Globulin 1.9 g/dL (1.6-3.3); Total Bilirubin 0.3 mg/dL (0.3-1.2); Total Protein 4.9 g/dL (6.2-8.2)
--- NOTE | 2023-01-24 12:25 | P.PN ---
Subjective Progress Note Date: 01/24/23 Follow-up for acute kidney injury. Urine output documented 1.4 L in the last 24 hours. Objective - Vital Signs Vital signs: Vital Signs Temp 97.7 F 01/24/23 07:17 Pulse 76 01/24/23 07:17 Resp 19 01/24/23 07:17 BP 93/59 01/24/23 07:17 Pulse Ox 100 01/24/23 07:17 FiO2 Intake & Output 01/23/23 01/24/23 01/24/23 18:59 06:59 18:59 Intake Total 1300 Output Total 280 1125 Balance -280 175 Weight 76 kg 76 kg Intake: Intake, IV Titration 1300 Amount Magnesium Sulfate-D5w Pmx 100 1 gm In Dextrose/Water 1 100ml.bag @ 100 mls/hr IVPB Q1H [facility] Rx#: [id number] Sodium Chloride 0.9% 1, 1200 000 ml @ 100 mls/hr IV . Q10H [facility] Rx#:[id number] Output: Urine 280 1125 Other: Voiding Method Urinal Urinal - Exam No acute distress S1-S2 heard Lungs clear Abdomen soft No edema - Labs CBC & Chem 7: 01/23/23 06:43 01/24/23 07:55 Labs: Abnormal Lab Results - Last 24 Hours (Table) 01/24/23 Range/Units 07:55 Chloride 111 H (96-109) mmol/L Creatinine 1.9 H (0.6-1.5) mg/dL Est GFR (CKD-EPI) 37 L (>=60) Calcium 8.4 L (8.7-10.3) mg/dL Total Protein 4.9 L (6.2-8.2) g/dL Albumin 3.0 L (3.8-4.9) g/dL Albumin/Globulin Ratio 1.58 L (1.60-3.17) Ratio Assessment and Plan Assessment: #1 acute kidney injury secondary to ATN. -Urine analysis [place]. #2 on a kidney disease stage III with a baseline creatinine of 1.3 MG per DL. #3 bilateral renal lesions. #4 hypokalemia secondary to poor intake and diuretic use. Plan: #1 renal function improving. #2 encourage by mouth intake #3 MRI for further evaluation of the kidneys as outpatient. #4 avoid nephrotoxic agents and hypotensive episodes.
--- NOTE | 2023-01-24 13:13 | P.PN ---
Subjective Progress Note Date: 01/24/23 Principal diagnosis: Hypotension The patient is a pleasant 72-year-old gentleman with a past medical history significant for atrial fibrillation/paroxysmal versus permanent as well as history of mild coronary artery disease. The patient was not feeling well and he has been struggling with gout and he presented into an urgent care where he was found to be hypotensive and he was referred to the hospital. He came into the hospital. He underwent workup including a BNP and that came in to be abnormal showing acute renal failure. He received IV fluid with improvement in the kidney function. His pressure has been low. He stated that he has not been eating and drinking. He reports no cardiac vascular symptoms of any chest pain or distress chest discomfort or shortness of breath or dizziness or lightheadedness or any feeling of heart racing or fluttering or any presyncope or syncope. In the emergency department his pressure has been fluctuating but has been low. He received IV fluid with some improvement in the blood pressure. His kidney function already improved after he received the IV fluid. Currently he is on anticoagulation he stated he has been compliant with he underwent cardioversion in 2019 and heart catheterization in 2019 showed mild CAD. No rec ent echocardiogram. The examination is remarkable for irregular rhythm with overall controlled heart rate and diminished breathing sounds bilaterally and no edema in the lower extremities 01/23/2023 The patient was seen and evaluated this morning. Overall he is feeling better. The pressure appeared to be stable. Losartan/hydrocortisone side continues to be on hold at this point for the margin a low blood pressure as well as for the renal failure. The kidney function has been trending in the right direction. The patient reports no pain in the chest and no shortness of breath at this poin t. From the cardiovascular standpoint of view, would continue the current medical regimen including oral anticoagulation. Follow up on the echocardiogram which was ordered. Follow-up with the patient. The examination is remarkable for only diminished breathing sounds bilaterally. 01/24/2023 The patient was seen this morning. He is asymptomatic at this point. The pressure is marginal. I'm going to decrease the dose of metoprolol from 75 mg by mouth twice a day to 50 mg by mouth twice a day. Continue oral anticoagulation. If the pressure remains low I would consider adding midodrine. The echo revealed cardiomyopathy was EF between 35-40% but the study was technically difficult with valvular heart disease was moderate and tricuspid regurgitation and pulmonary hypertension. The creatinine has been trending in the right direction. The examination is remarkable for irregular rhythm with clear breathing sounds bilaterally and no lower extremities edema noted. Assessment Hypotension likely secondary to decreased oral intake. The hypotension has improved Acute renal failure secondary to hypertension. The renal failure is standing in the right direction Atrial fibrillation with controlled heart rate Hypotension Cardiomyopathy Valvular heart disease Plan Continue holding losartan losartan/hydrochlorothiazide Continue monitor the kidney function which has improved already Continue oral anticoagulation Decrease the dose of metoprolol Consider workup for the cardiomyopathy once the kidney function improved Objective - Vital Signs Vital signs: Vital Signs Temp 97.7 F 01/24/23 07:17 Pulse 76 01/24/23 07:17 Resp 19 01/24/23 07:17 BP 93/59 01/24/23 07:17 Pulse Ox 100 01/24/23 07:17 FiO2 Intake & Output 01/23/23 01/24/23 01/24/23 18:59 06:59 18:59 Intake Total 1300 Output Total 280 1125 Balance -280 175 Weight 76 kg 76 kg Intake: Intake, IV Titration 1300 Amount Magnesium Sulfate-D5w Pmx 100 1 gm In Dextrose/Water 1 100ml.bag @ 100 mls/hr IVPB Q1H [facility] Rx#: [id number] Sodium Chloride 0.9% 1, 1200 000 ml @ 100 mls/hr IV . Q10H [facility] Rx#:[id number] Output: Urine 280 1125 Other: Voiding Method Urinal Urinal - Labs CBC & Chem 7: 01/23/23 06:43 01/24/23 07:55 Labs: Abnormal Lab Results - Last 24 Hours (Table) 01/24/23 Range/Units 07:55 Chloride 111 H (96-109) mmol/L Creatinine 1.9 H (0.6-1.5) mg/dL Est GFR (CKD-EPI) 37 L (>=60) Calcium 8.4 L (8.7-10.3) mg/dL Total Protein 4.9 L (6.2-8.2) g/dL Albumin 3.0 L (3.8-4.9) g/dL Albumin/Globulin Ratio 1.58 L (1.60-3.17) Ratio
--- NOTE | 2023-01-24 18:50 | P.PN ---
Subjective Progress Note Date: 01/24/23 Hospital course: Patient is a very pleasant 72-year-old male with a past medical history of CAD with stents, paroxysmal atrial fibrillation on anticoagulation with Eliquis, hypertension, end stage IIIA chronic kidney disease with baseline creatinine of 1.3. Patient presented to the emergency department on 01/21/23 with a chief complaint of dizziness/lightheadedness. Upon arrival to our facility patient was found to be significantly tachycardic with heart rate 150s. EKG completed showing A. fib RVR 146 bpm. Vital signs as follows heart rate 151, blood pressure 83/58, respiratory rate 20, temp 98.0F, SpO2 of 90% on room air. Chest x-ray completed negative for acute cardiopulmonary process. Patient was given a Cardizem bolus followed by initiation of Cardizem infusion. Labs were completed and reviewed. CBC showing macrocytosis with MCV of 104.7. Coagulation profile showing slightly elevated INR 1.2 otherwise normal findings. BMP revealing hyponatremia with sodium of 134, hypochloremia with chloride of 95, hypocarbia with bicarb is 21, elevated anion gap of 18, and acute renal failure on chronic kidney disease with BUN of 76, creatinine of 4.17, and GFR 14 with baseline creatinine of 1.3. Physical exam: Vital signs reviewed and stable. General: Nontoxic, no distress and appears stated age. Derm: Skin warm and dry, normal coloration for ethnicity. Head: Atraumatic, normocephalic and symmetric. Eyes: EOMs intact, no lid lag, and anicteric sclera Mouth: no lip lesions, mucus membranes moist Cardiovascular: Irregularly irregular, no murmur, positive posterior tibial pulses bilaterally, and cap refill < 2 seconds. Lungs: Respirations even, regular, and unlabored on room air. Lungs CTA bilaterally, no rhonchi, no rales, no wheezing, and no accessory muscle usage. Abdominal: soft, nontender to palpation, no guarding, no appreciable organomegal y Ext: ROM intact. No gross muscle atrophy, no edema, no contractures Neuro: Speech clear, face symmetrical and CN II-XII grossly intact with no noted focal neuro deficits Psych: Alert and oriented to person, place, time, and situation. Appropriate and pleasant affect. Assessment and Plan of Care: Acute renal failure on stage IIIa chronic kidney disease, likely cardiorenal syndrome secondary to hypoperfusion resulting from RVR and episodes of hypotension Metabolic acidosis secondary to acute kidney injury -Nephrology following, reviewed documentation in chart -Renal function improving with IV fluid hydration currently BUN 40, creatinine 2.23, and GFR of 29. -Continue IV fluid hydration with 0.9% normal saline at 100 mL per hour. -Continued close monitoring of renal function with repeat morning BMP -Reviewed renal ultrasound in radiology report stating bilateral renal calculi with no evidence for obstructive uropathy or hydronephrosis. Atrial fibrillation with RVR Elevated troponin, type II and STEMI believed to be secondary to rapid ventricular rate and hypotension resulting in hypoperfusion Hypotension -Patient remains in atrial fibrillation currently with a controlled ventricular rate at this time. -Cardiology following, and discussed plan of care with Dr. Mccullough. -Patient to remain on continuous telemetry monitoring -Monitor for signs of hypotension however patient may continue metoprolol 50 mg daily -Continue anticoagulation with Eliquis 5 mg twice daily Hypokalemia, resolved Hypomagnesemia, resolved Macrocytosis Vitamin B12 levels 337 and folate normal at 572. Data reviewed: Labs reviewed. CBC showing macrocytic anemia with hemoglobin stable to 0.2. BMP showing resolution of hypokalemia with potassium of 4.0 and continued slight improvement of renal function with BUN of 24, creatinine 1.9, and GFR of 37. Magnesium showing normal findings this morning of 1.9. Liver profile remains unremarkable. Vital signs reviewed. Blood pressure 93/59, heart rate 76, respiratory rate 19, temperature 97.7F, SpO2 100% on room air. CODE STATUS: Full code DVT prophylaxis: Eliquis Anticipated discharge date: Clinical course to determine Anticipated discharge place: Clinical course to determine Patient was seen independently by Nurse Pracitioner. This document was prepared using [employer] dictation software. Please allow for errors in anime artist, while rare they do occur. Rishi Smith NP rendered care for this patient independently, reviewed the findings and plan as documented in the note above. I did not physically speak with or examine the patient on this date. Objective - Vital Signs Vital signs: Vital Signs Temp 97.7 F 01/24/23 07:17 Pulse 76 01/24/23 07:17 Resp 19 01/24/23 07:17 BP 93/59 01/24/23 07:17 Pulse Ox 100 01/24/23 07:17 FiO2 Intake & Output 01/23/23 01/24/23 01/24/23 18:59 06:59 18:59 Intake Total 1300 Output Total 280 1125 Balance -280 175 Weight 76 kg Intake: Intake, IV Titration 1300 Amount Magnesium Sulfate-D5w Pmx 100 1 gm In Dextrose/Water 1 100ml.bag @ 100 mls/hr IVPB Q1H [facility] Rx#: [id number] Sodium Chloride 0.9% 1, 1200 000 ml @ 100 mls/hr IV . Q10H [facility] Rx#:[id number] Output: Urine 280 1125 Other: Voiding Method Urinal Urinal - Labs CBC & Chem 7: 01/26/23 06:22 01/26/23 06:22 Labs: Abnormal Lab Results - Last 24 Hours (Table) 01/23/23 Range/Units 06:43 Potassium 3.4 L (3.5-5.1) mmol/L Chloride 110 H (98-107) mmol/L Carbon Dioxide 19 L (22-30) mmol/L BUN 40 H (9-20) mg/dL Creatinine 2.23 H (0.66-1.25) mg/dL Calcium 8.2 L (8.4-10.2) mg/dL Magnesium 1.4 L (1.6-2.3) mg/dL Total Protein 5.3 L (6.3-8.2) g/dL Albumin 2.7 L (3.5-5.0) g/dL
[2023-01-24] MEDS: SODIUM CHLORIDE 0.9% 1,000 ML IV SCH (20:02)
[2023-01-24] MEDS: ACETAMINOPHEN TAB 325 MG TAB PO PRN (22:23)
[2023-01-24] MEDS: TEMAZEPAM 15 MG CAP PO PRN (23:19)
[2023-01-25] MEDS ORDERED: CYCLOBENZAPRINE 5 MG TAB PO STA (00:41)
[2023-01-25] MEDS ORDERED: SODIUM CHLORIDE 0.9% 500 ML 500 ML IV ONE (00:47)
[2023-01-25] MEDS: SODIUM CHLORIDE 0.9% 1,000 ML IV SCH ×3 (01:32→19:55)
[2023-01-25 04:27] LABS: Glucose,Whole Blood 101 mg/dL (70-110)
[2023-01-25] MEDS: ACETAMINOPHEN TAB 325 MG TAB PO PRN ×2 (06:38→21:06)
[2023-01-25] MEDS: APIXABAN 5 MG TAB PO SCH ×2 (08:19→21:06)
[2023-01-25] MEDS ORDERED: METOPROLOL SUCCINATE (ER) 50 MG TAB.ER.24H PO SCH (09:00)
[2023-01-25 10:36] LABS: HCT 33.4 % (39.0-53.0); HGB 11.2 gm/dL (13.0-17.5); MCH 36.5 pg (25.0-35.0); MCHC 33.6 g/dL (31.0-37.0); MCV 108.4 fL (80.0-100.0); Macrocytosis Moderate; Mean Platelet Volume 9.6; Platelet Count 135 k/uL (150-450); RBC 3.08 m/uL (4.30-5.90); RDW 12.4 % (11.5-15.5); WBC 3.4 k/uL (3.8-10.6)
[2023-01-25 12:15] LABS: African American GFR (CKD) 55 (>60 ml/min/1.73 sqM); Anion Gap 10 mmol/L; Blood Urea Nitrogen 18 mg/dL (9-20); Calcium 8.3 mg/dL (8.4-10.2); Carbon Dioxide 16 mmol/L (22-30); Chloride 116 mmol/L (98-107); Glucose 98 mg/dL (74-99); Magnesium 1.5 mg/dL (1.6-2.3); Non-African American GFR(CKD) 48 (>60 ml/min/1.73 sqM); Potassium 3.4 mmol/L (3.5-5.1); Sodium 142 mmol/L (137-145)
--- NOTE | 2023-01-25 13:24 | P.PN ---
Subjective Progress Note Date: 01/25/23 Principal diagnosis: Hypotension The patient is a pleasant 72-year-old gentleman with a past medical history significant for atrial fibrillation/paroxysmal versus permanent as well as history of mild coronary artery disease. The patient was not feeling well and he has been struggling with gout and he presented into an urgent care where he was found to be hypotensive and he was referred to the hospital. He came into the hospital. He underwent workup including a BNP and that came in to be abnormal showing acute renal failure. He received IV fluid with improvement in the kidney function. His pressure has been low. He stated that he has not been eating and drinking. He reports no cardiac vascular symptoms of any chest pain or distress chest discomfort or shortness of breath or dizziness or lightheadedness or any feeling of heart racing or fluttering or any presyncope or syncope. In the emergency department his pressure has been fluctuating but has been low. He received IV fluid with some improvement in the blood pressure. His kidney function already improved after he received the IV fluid. Currently he is on anticoagulation he stated he has been compliant with he underwent cardioversion in 2019 and heart catheterization in 2019 showed mild CAD. No rec ent echocardiogram. The examination is remarkable for irregular rhythm with overall controlled heart rate and diminished breathing sounds bilaterally and no edema in the lower extremities 01/23/2023 The patient was seen and evaluated this morning. Overall he is feeling better. The pressure appeared to be stable. Losartan/hydrocortisone side continues to be on hold at this point for the margin a low blood pressure as well as for the renal failure. The kidney function has been trending in the right direction. The patient reports no pain in the chest and no shortness of breath at this poin t. From the cardiovascular standpoint of view, would continue the current medical regimen including oral anticoagulation. Follow up on the echocardiogram which was ordered. Follow-up with the patient. The examination is remarkable for only diminished breathing sounds bilaterally. 01/24/2023 The patient was seen this morning. He is asymptomatic at this point. The pressure is marginal. I'm going to decrease the dose of metoprolol from 75 mg by mouth twice a day to 50 mg by mouth twice a day. Continue oral anticoagulation. If the pressure remains low I would consider adding midodrine. The echo revealed cardiomyopathy was EF between 35-40% but the study was technically difficult with valvular heart disease was moderate and tricuspid regurgitation and pulmonary hypertension. The creatinine has been trending in the right direction. The examination is remarkable for irregular rhythm with clear breathing sounds bilaterally and no lower extremities edema noted. 01/25/2023 The patient was seen and evaluated this morning. The pressure remains marginal. I am going to decrease the dose of beta geovani. Otherwise he seems to be stable. No chest pain or shortness of breath. From the cardiovascular standpoint of view he is stable. I'm going to add midodrine to the current med ical regimen. The examination is remarkable for irregular rhythm with clear breathing sounds bilaterally and no edema was noted. Assessment Hypotension likely secondary to decreased oral intake. The hypotension has improved Acute renal failure secondary to hypertension. The renal failure is standing in the right direction Atrial fibrillation with controlled heart rate Hypotension Cardiomyopathy Valvular heart disease Plan Decrease the dose of metoprolol Add midodrine to the current medical regimen Potentially patient can be discharged home in the next 12-24 hour Objective - Vital Signs Vital signs: Vital Signs Temp 97.9 F 01/25/23 08:20 Pulse 69 01/25/23 08:19 Resp 14 01/25/23 08:19 BP 95/62 01/25/23 07:03 Pulse Ox 94 L 01/25/23 07:03 FiO2 Intake & Output 01/24/23 01/25/23 01/25/23 18:59 06:59 18:59 Output Total 1300 400 350 Balance -1300 -400 -350 Weight 76 kg Output: Urine 1300 400 350 Other: Voiding Method Urinal Urinal # Bowel Movements 1 - Labs CBC & Chem 7: 01/25/23 10:03 01/25/23 10:03 Labs: Abnormal Lab Results - Last 24 Hours (Table) 01/25/23 01/25/23 Range/Units 10:03 10:03 WBC 3.4 L (3.8-10.6) k/uL RBC 3.08 L (4.30-5.90) m/uL Hgb 11.2 L (13.0-17.5) gm/dL Hct 33.4 L (39.0-53.0) % MCV 108.4 H (80.0-100.0) fL MCH 36.5 H (25.0-35.0) pg Plt Count 135 L (150-450) k/uL Potassium 3.4 L (3.5-5.1) mmol/L Chloride 116 H (98-107) mmol/L Carbon Dioxide 16 L (22-30) mmol/L Creatinine 1.47 H (0.66-1.25) mg/dL Calcium 8.3 L (8.4-10.2) mg/dL Magnesium 1.5 L (1.6-2.3) mg/dL
[2023-01-25] MEDS ORDERED: POTASSIUM CHLORIDE ER 20 MEQ TAB.ER PO STA (13:45)
--- NOTE | 2023-01-25 13:54 | P.PN ---
Subjective Progress Note Date: 01/25/23 Follow-up for acute kidney injury. Urine output documented 1.7 L in the last 24 hours. Objective - Vital Signs Vital signs: Vital Signs Temp 98.2 F 01/25/23 13:15 Pulse 60 01/25/23 13:15 Resp 14 01/25/23 13:15 BP 106/73 01/25/23 13:15 Pulse Ox 96 01/25/23 13:15 FiO2 Intake & Output 01/24/23 01/25/23 01/25/23 18:59 06:59 18:59 Output Total 1300 400 350 Balance -1300 -400 -350 Weight 76 kg Output: Urine 1300 400 350 Other: Voiding Method Urinal Urinal # Bowel Movements 1 - Exam No acute distress S1-S2 heard Lungs clear Abdomen soft No edema - Labs CBC & Chem 7: 01/25/23 10:03 01/25/23 10:03 Labs: Abnormal Lab Results - Last 24 Hours (Table) 01/25/23 01/25/23 Range/Units 10:03 10:03 WBC 3.4 L (3.8-10.6) k/uL RBC 3.08 L (4.30-5.90) m/uL Hgb 11.2 L (13.0-17.5) gm/dL Hct 33.4 L (39.0-53.0) % MCV 108.4 H (80.0-100.0) fL MCH 36.5 H (25.0-35.0) pg Plt Count 135 L (150-450) k/uL Potassium 3.4 L (3.5-5.1) mmol/L Chloride 116 H (98-107) mmol/L Carbon Dioxide 16 L (22-30) mmol/L Creatinine 1.47 H (0.66-1.25) mg/dL Calcium 8.3 L (8.4-10.2) mg/dL Magnesium 1.5 L (1.6-2.3) mg/dL Assessment and Plan Assessment: #1 acute kidney injury secondary to ATN. -Urine analysis [place]. #2 on a kidney disease stage III with a baseline creatinine of 1.3 MG per DL. #3 bilateral renal lesions. #4 hypokalemia secondary to poor intake and diuretic use. Plan: #1 renal function improving. #2 encourage by mouth intake #3 MRI for further evaluation of the kidneys as outpatient. #4 avoid nephrotoxic agents and hypotensive episodes.
[2023-01-25] MEDS: MAGNESIUM SULFATE-D5W PMX 1 GM in DEXTROSE/WATER 1 100ML.BAG IVPB SCH ×2 (14:20→15:39)
--- NOTE | 2023-01-25 16:33 | P.PN ---
Subjective Progress Note Date: 01/25/23 Hospital course: Patient is a very pleasant 72-year-old male with a past medical history of CAD with stents, paroxysmal atrial fibrillation on anticoagulation with Eliquis, hypertension, end stage IIIA chronic kidney disease with baseline creatinine of 1.3. Patient presented to the emergency department on 01/21/23 with a chief complaint of dizziness/lightheadedness. Upon arrival to our facility patient was found to be significantly tachycardic with heart rate 150s. EKG completed showing A. fib RVR 146 bpm. Vital signs as follows heart rate 151, blood pressure 83/58, respiratory rate 20, temp 98.0F, SpO2 of 90% on room air. Chest x-ray completed negative for acute cardiopulmonary process. Patient was given a Cardizem bolus followed by initiation of Cardizem infusion. Labs were completed and reviewed. CBC showing macrocytosis with MCV of 104.7. Coagulation profile showing slightly elevated INR 1.2 otherwise normal findings. BMP revealing hyponatremia with sodium of 134, hypochloremia with chloride of 95, hypocarbia with bicarb is 21, elevated anion gap of 18, and acute renal failure on chronic kidney disease with BUN of 76, creatinine of 4.17, and GFR 14 with baseline creatinine of 1.3. Patient admitted under our services with consultation to cardiology and nephrology. Physical exam: Vital signs reviewed and stable. General: Nontoxic, no distress and appears stated age. Derm: Skin warm and dry, normal coloration for ethnicity. Head: Atraumatic, normocephalic and symmetric. Eyes: EOMs intact, no lid lag, and anicteric sclera Mouth: no lip lesions, mucus membranes moist Cardiovascular: Irregularly irregular, no murmur, positive posterior tibial pulses bilaterally, and cap refill < 2 seconds. Lungs: Respirations even, regular, and unlabored on room air. Lungs CTA bilaterally, no rhonchi, no rales, no wheezing, and no accessory muscle usage. Abdominal: soft, nontender to palpation, no guarding, no appreciable organomegaly Ext: ROM intact. No gross muscle atrophy, no edema, no contractures Neuro: Speech clear, face symmetrical and CN II-XII grossly intact with no noted focal neuro deficits Psych: Alert and oriented to person, place, time, and situation. Appropriate and pleasant affect. Assessment and Plan of Care: Acute renal failure on stage IIIa chronic kidney disease, likely cardiorenal syndrome secondary to hypoperfusion resulting from RVR and episodes of hypotension Metabolic acidosis secondary to acute kidney injury -Nephrology following, reviewed documentation in chart -Renal function improving with IV fluid hydration currently BUN 40, creatinine 2.23, and GFR of 29. -Continue IV fluid hydration with 0.9% normal saline at 100 mL per hour. -Continued close monitoring of renal function with repeat morning BMP -Reviewed renal ultrasound in radiology report stating bilateral renal calculi with no evidence for obstructive uropathy or hydronephrosis. Atrial fibrillation with RVR Elevated troponin, type II and STEMI believed to be secondary to rapid ventricular rate and hypotension resulting in hypoperfusion Hypotension -Patient remains in atrial fibrillation currently with a controlled ventricular rate at this time. -Cardiology following, and discussed plan of care with Dr. Mccullough. Patient cleared from cardiac perspective for discharge home. -Patient to remain on continuous telemetry monitoring -Monitor for signs of hypotension however patient may continue metoprolol 50 mg daily -Continue anticoagulation with Eliquis 5 mg twice daily Hypokalemia, potassium 3.4 ordwe placed for K-ur 40 mEq 1 dose. Hypomagnesemia, magnesium 1.5 orders placed for magnesium sulfate 2 g IVPB 1 dose. Macrocytosis Pancytopenia Vitamin B12 levels 337 and folate normal at 572. Data reviewed: Labs reviewed. CBC showing pancytopenia 11.2, and platelet count of 135. BMP showing hypokalemia with potassium of 3.4 and significantly improved renal function with BUN of 18, creatinine 1.47, and GFR 48. Magnesium was low at 1.5. Vital signs reviewed. Blood pressure 95/62, heart rate 69, respiratory rate 14, temp 97.9F, SpO2 94% on room air. CODE STATUS: Full code DVT prophylaxis: Eliquis Anticipated discharge date: Clinical course to determine Anticipated discharge place: Clinical course to determine Patient was seen independently by Nurse Pracitioner. This document was prepared using [employer] dictation software. Please allow for errors in clinical studies specialist, while rare they do occur. Rishi Smith NP rendered care for this patient independently, reviewed the findings and plan as documented in the note above. I did not physically speak with or examine the patient on this date. Objective - Vital Signs Vital signs: Vital Signs Temp 97.6 F 01/25/23 00:41 Pulse 89 01/25/23 00:41 Resp 18 01/25/23 00:41 BP 91/61 01/25/23 01:29 Pulse Ox 96 01/25/23 00:41 FiO2 Intake & Output 01/24/23 01/25/23 01/25/23 18:59 06:59 18:59 Output Total 1300 400 Balance -1300 -400 Weight 76 kg Output: Urine 1300 400 Other: Voiding Method Urinal # Bowel Movements 1 - Labs CBC & Chem 7: 01/26/23 06:22 01/26/23 06:22 Labs: Abnormal Lab Results - Last 24 Hours (Table) 01/24/23 Range/Units 07:55 Chloride 111 H (96-109) mmol/L Creatinine 1.9 H (0.6-1.5) mg/dL Est GFR (CKD-EPI) 37 L (>=60) Calcium 8.4 L (8.7-10.3) mg/dL Total Protein 4.9 L (6.2-8.2) g/dL Albumin 3.0 L (3.8-4.9) g/dL Albumin/Globulin Ratio 1.58 L (1.60-3.17) Ratio
[2023-01-25] MEDS: MIDODRINE 5 MG TAB PO SCH (17:11)
[2023-01-25] MEDS: TEMAZEPAM 15 MG CAP PO PRN (21:06)
[2023-01-26] MEDS: SODIUM CHLORIDE 0.9% 1,000 ML IV SCH (01:38)
[2023-01-26] MEDS: ACETAMINOPHEN TAB 325 MG TAB PO PRN (06:19)
[2023-01-26] MEDS: MIDODRINE 5 MG TAB PO SCH ×2 (06:19→14:14)
[2023-01-26] MEDS: APIXABAN 5 MG TAB PO SCH (07:20)
[2023-01-26] MEDS ORDERED: DILTIAZEM 5 MG/ML 5 ML VIAL IVP STA ×2 (07:57→08:02)
[2023-01-26] MEDS ORDERED: METOPROLOL SUCCINATE (ER) 25 MG TAB.ER.24H PO SCH (09:00)
[2023-01-26] MEDS ORDERED: METOPROLOL SUCCINATE (ER) 50 MG TAB.ER.24H PO SCH (09:00)
[2023-01-26 09:50] LABS: HCT 33.7 % (39.6-50.0); HGB 11.1 g/dL (13.0-17.0); MCH 35.8 pg (27.0-32.0); MCHC 32.9 g/dL (32.0-37.0); MCV 108.7 FL (80.0-97.0); Mean Platelet Volume 12.4 FL (9.5-12.2); NRBC Per 100 WBC 0 X 10*3/uL (0.00-0.01); Platelet Count 152 X 10*3/uL (140-440); RDW 12.9 % (11.5-14.5); WBC 4.85 X 10*3/uL (4.50-10.00)
[2023-01-26 11:17] LABS: BUN/Creat Ratio 9.54 Ratio (12.00-20.00); Blood Urea Nitrogen 12.4 mg/dL (9.0-27.0); Calcium 8.6 mg/dL (8.7-10.3); Carbon Dioxide 19.8 mmol/L (21.6-31.8); Chloride 115 mmol/L (96-109); Glucose 85 mg/dL (70-110); Magnesium 1.8 mg/dL (1.5-2.4); Potassium 4.4 mmol/L (3.5-5.5); Sodium 143 mmol/L (135-145)
--- NOTE | 2023-01-26 13:56 | P.PN ---
Subjective Progress Note Date: 01/26/23 Principal diagnosis: Hypotension The patient is a pleasant 72-year-old gentleman with a past medical history significant for atrial fibrillation/paroxysmal versus permanent as well as history of mild coronary artery disease. The patient was not feeling well and he has been struggling with gout and he presented into an urgent care where he was found to be hypotensive and he was referred to the hospital. He came into the hospital. He underwent workup including a BNP and that came in to be abnormal showing acute renal failure. He received IV fluid with improvement in the kidney function. His pressure has been low. He stated that he has not been eating and drinking. He reports no cardiac vascular symptoms of any chest pain or distress chest discomfort or shortness of breath or dizziness or lightheadedness or any feeling of heart racing or fluttering or any presyncope or syncope. In the emergency department his pressure has been fluctuating but has been low. He received IV fluid with some improvement in the blood pressure. His kidney function already improved after he received the IV fluid. Currently he is on anticoagulation he stated he has been compliant with he underwent cardioversion in 2019 and heart catheterization in 2019 showed mild CAD. No rec ent echocardiogram. The examination is remarkable for irregular rhythm with overall controlled heart rate and diminished breathing sounds bilaterally and no edema in the lower extremities 01/23/2023 The patient was seen and evaluated this morning. Overall he is feeling better. The pressure appeared to be stable. Losartan/hydrocortisone side continues to be on hold at this point for the margin a low blood pressure as well as for the renal failure. The kidney function has been trending in the right direction. The patient reports no pain in the chest and no shortness of breath at this poin t. From the cardiovascular standpoint of view, would continue the current medical regimen including oral anticoagulation. Follow up on the echocardiogram which was ordered. Follow-up with the patient. The examination is remarkable for only diminished breathing sounds bilaterally. 01/24/2023 The patient was seen this morning. He is asymptomatic at this point. The pressure is marginal. I'm going to decrease the dose of metoprolol from 75 mg by mouth twice a day to 50 mg by mouth twice a day. Continue oral anticoagulation. If the pressure remains low I would consider adding midodrine. The echo revealed cardiomyopathy was EF between 35-40% but the study was technically difficult with valvular heart disease was moderate and tricuspid regurgitation and pulmonary hypertension. The creatinine has been trending in the right direction. The examination is remarkable for irregular rhythm with clear breathing sounds bilaterally and no lower extremities edema noted. 01/25/2023 The patient was seen and evaluated this morning. The pressure remains marginal. I am going to decrease the dose of beta geovani. Otherwise he seems to be stable. No chest pain or shortness of breath. From the cardiovascular standpoint of view he is stable. I'm going to add midodrine to the current med ical regimen. The examination is remarkable for irregular rhythm with clear breathing sounds bilaterally and no edema was noted. 01/26/2023 The patient was seen and evaluated this morning. He was tachycardia with atrial fibrillation but after increasing the dose of metoprolol his heart rate has i mproved and currently he is stable. From a cardiovascular standpoint of view, the patient can be discharged home. He is asymptomatic. Assessment Hypotension likely secondary to decreased oral intake. The hypotension has improved Acute renal failure secondary to hypertension. The renal failure is standing in the right direction Atrial fibrillation with controlled heart rate Hypotension Cardiomyopathy Valvular heart disease Plan Continue the current medical regimen The patient can be discharged home Follow-up with the patient on as needed case Objective - Vital Signs Vital signs: Vital Signs Temp 98.2 F 01/26/23 07:17 Pulse 150 H 01/26/23 07:22 Resp 16 01/26/23 07:22 BP 129/82 01/26/23 07:17 Pulse Ox 96 01/26/23 07:17 FiO2 Intake & Output 01/25/23 01/26/23 01/26/23 18:59 06:59 18:59 Intake Total 1080 Output Total 550 300 Balance 530 -300 Intake: Oral 1080 Output: Urine 550 300 Other: Voiding Method Urinal Urinal Toilet Urinal # Voids 2 # Bowel Movements 1 1 - Labs CBC & Chem 7: 01/26/23 06:22 01/26/23 06:22 Labs: Abnormal Lab Results - Last 24 Hours (Table) 01/26/23 01/26/23 Range/Units 06:22 06:22 RBC 3.10 L (4.40-5.60) X 10*6/uL Hgb 11.1 L (13.0-17.0) g/dL Hct 33.7 L (39.6-50.0) % MCV 108.7 H (80.0-97.0) FL MCH 35.8 H (27.0-32.0) pg MPV 12.4 H (9.5-12.2) FL Chloride 115 H (96-109) mmol/L Carbon Dioxide 19.8 L (21.6-31.8) mmol/L Est GFR (CKD-EPI) 59 L (>=60) BUN/Creatinine Ratio 9.54 L (12.00-20.00) Ratio Calcium 8.6 L (8.7-10.3) mg/dL
[2023-01-26 14:12] VITALS: BP 114/76; PULSE 84; RESP 18; TEMP 98.4
--- NOTE | 2023-01-26 14:51 | P.PN ---
Subjective Progress Note Date: 01/26/23 Follow-up for acute kidney injury. Urine output documented 850 ml in the last 24 hours. Objective - Vital Signs Vital signs: Vital Signs Temp 98.4 F 01/26/23 13:24 Pulse 84 01/26/23 13:24 Resp 18 01/26/23 13:24 BP 114/76 01/26/23 13:24 Pulse Ox 94 L 01/26/23 13:24 FiO2 Intake & Output 01/25/23 01/26/23 01/26/23 18:59 06:59 18:59 Intake Total 1080 Output Total 550 300 Balance 530 -300 Intake: Oral 1080 Output: Urine 550 300 Other: Voiding Method Urinal Urinal Toilet Urinal # Voids 2 # Bowel Movements 1 1 - Exam No acute distress S1-S2 heard Lungs clear Abdomen soft No edema - Labs CBC & Chem 7: 01/26/23 06:22 01/26/23 06:22 Labs: Abnormal Lab Results - Last 24 Hours (Table) 01/26/23 01/26/23 Range/Units 06:22 06:22 RBC 3.10 L (4.40-5.60) X 10*6/uL Hgb 11.1 L (13.0-17.0) g/dL Hct 33.7 L (39.6-50.0) % MCV 108.7 H (80.0-97.0) FL MCH 35.8 H (27.0-32.0) pg MPV 12.4 H (9.5-12.2) FL Chloride 115 H (96-109) mmol/L Carbon Dioxide 19.8 L (21.6-31.8) mmol/L Est GFR (CKD-EPI) 59 L (>=60) BUN/Creatinine Ratio 9.54 L (12.00-20.00) Ratio Calcium 8.6 L (8.7-10.3) mg/dL Assessment and Plan Assessment: #1 acute kidney injury secondary to ATN. -Urine analysis [place]. #2 on a kidney disease stage III with a baseline creatinine of 1.3 MG per DL. #3 bilateral renal lesions. #4 hypokalemia secondary to poor intake and diuretic use. Plan: #1 renal function improving. #2 encourage by mouth intake #3 MRI for further evaluation of the kidneys as outpatient. #4 avoid nephrotoxic agents and hypotensive episodes.
--- NOTE | 2023-01-26 15:08 | P.DS ---
Providers Date of admission: 01/21/23 21:13 Expected date of discharge: 01/26/23 Attending physician: Sandi Harris MD Consults: 01/21/23 21:10 Consult Physician Urgent Consulting Provider: Gurinder Mccullough Consult Reason/Comments: a fib w rvr Do you want consulting provider notified?: Yes Consult Physician Urgent Consulting Provider: Simin Arndt Consult Reason/Comments: ramone Do you want consulting provider notified?: Yes Primary care physician: Stated None Hospital Course: Discharge Diagnosis: Acute renal failure on stage IIIa chronic kidney disease, likely cardiorenal syndrome secondary to hypoperfusion resulting from RVR and episodes of hypotension. Resolved. Metoprolol dose decreased from 75 mg daily to 50 mg daily and patient started on midodrine 2.5 mg 3 times daily. Losartan/hydrochlorothiazide was discontinued. Patient discharged home with prescription to have repeat labs done in 3 days with results to be sent to PCP and mural painter for follow-up and management. Metabolic acidosis secondary to acute kidney injury. Resolved. Atrial fibrillation with RVR. Metoprolol dose adjusted, patient was evaluated by mural painter clearing patient from cardiac perspective for discharge recommending outpatient follow-up in their office in one week. Elevated troponin, type II and STEMI believed to be secondary to rapid ventricular rate and hypotension resulting in hypoperfusion. Hypotension, Metoprolol dose decreased from 75 mg daily to 50 mg daily and patient started on midodrine 2.5 mg 3 times daily. Losartan/hydrochlorothiazide was discontinued. Hypokalemia, resolved Hypomagnesemia, resolved. Macrocytosis Pancytopenia Hospital Course: Patient is a very pleasant 72-year-old male with a past medical history of CAD with stents, paroxysmal atrial fibrillation on anticoagulation with Eliquis, hypertension, end stage IIIA chronic kidney disease with baseline creatinine of 1.3. Patient presented to the emergency department on 01/21/23 with a chief complaint of dizziness/lightheadedness. Upon arrival to our facility patient was found to be significantly tachycardic with heart rate 150s. EKG completed showing A. fib RVR 146 bpm. Vital signs as follows heart rate 151, blood pressure 83/58, respiratory rate 20, temp 98.0F, SpO2 of 90% on room air. Chest x-ray completed negative for acute cardiopulmonary process. Patient was given a Cardizem bolus followed by initiation of Cardizem infusion. Labs were completed and reviewed. CBC showing macrocytosis with MCV of 104.7. Coagulation profile showing slightly elevated INR 1.2 otherwise normal findings. BMP revealing hyponatremia with sodium of 134, hypochloremia with chloride of 95, hypocarbia with bicarb is 21, elevated anion gap of 18, and acute renal failure on chronic kidney disease with BUN of 76, creatinine of 4.17, and GFR 14 with baseline creatinine of 1.3. Patient admitted under our services with consultation to cardiology and nephrology. He underwent IV fluid hydration for treatment of acute kidney injury. Adjustments were made to medication regimen for control and stabilization of hypotension. Patient was evaluated by both carboy filler and mural painter. Acute renal failure on stage IIIa chronic kidney disease was believed to be secondary to cardiorenal syndrome resulting from hypoperfusion due to RVR and episodes of hypotension. Acute kidney injury resolved and ventricular rate controlled. Patient is medically stable at this time. Metoprolol dose was decreased from 75 mg daily to 50 mg daily and patient started on midodrine 2.5 mg 3 times daily. Losartan/hydrochlorothiazide was discontinued. Patient discharged home with prescription to have repeat labs done in 3 days with results to be sent to PCP and mural painter for follow-up and management. Physical exam: Vital signs reviewed and stable. General: Nontoxic, no distress and appears stated age. Derm: Skin warm and dry, normal coloration for ethnicity. Head: Atraumatic, normocephalic and symmetric. Eyes: EOMs intact, no lid lag, and anicteric sclera Mouth: no lip lesions, mucus membranes moist Cardiovascular: Irregularly irregular, no murmur, positive posterior tibial pulses bilaterally, and cap refill < 2 seconds. Lungs: Respirations even, regular, and unlabored on room air. Lungs CTA bilaterally, no rhonchi, no rales, no wheezing, and no accessory muscle usage. Abdominal: soft, nontender to palpation, no guarding, no appreciable orga nomegaly Ext: ROM intact. No gross muscle atrophy, no edema, no contractures Neuro: Speech clear, face symmetrical and CN II-XII grossly intact with no noted focal neuro deficits Psych: Alert and oriented to person, place, time, and situation. Appropriate and pleasant affect. A total of 37 minutes of time were spent preparing this complex discharge summary. Pt was discharged on 01/26/23 at 2:57 PM. Patient was seen independently by Nurse Practitioner. This document was prepared using wooju dictation software. Please allow for errors in [employer] senior officer while rare they do occur. Rishi Smith NP rendered care for this patient independently, reviewed the findings and plan as documented in the note above. I did not physically speak with or examine the patient on this date. Patient Condition at Discharge: Stable Plan - Discharge Summary Discharge Rx Participant: Yes New Discharge Prescriptions: New Midodrine [ProAmatine] 2.5 mg PO AC-TID 30 Days #90 tab Continue Apixaban [Eliquis] 5 mg PO BID #60 tab Furosemide [Lasix] 20 mg PO DAILY Changed Metoprolol Succinate (ER) [Toprol XL] 50 mg PO DAILY #0 Discontinued Losartan/Hydrochlorothiazide [Losartan-Hctz 100-12.5 mg Tab] 1 tab PO DAILY Discharge Medication List Apixaban [Eliquis] 5 mg PO BID #60 tab 04/16/18 [Rx] Furosemide [Lasix] 20 mg PO DAILY 01/21/23 [History] Metoprolol Succinate (ER) [Toprol XL] 50 mg PO DAILY #0 01/26/23 [Rx] Midodrine [ProAmatine] 2.5 mg PO AC-TID 30 Days #90 tab 01/26/23 [Rx] Follow up Appointment(s)/Referral(s): Clement Ritchie MD [REFERRING] - 1-2 Days Alejandro Moralez MD [STAFF PHYSICIAN] - 1 Week Ambulatory/Diagnostic Orders: Basic Metabolic Panel [LAB.AMB] Time Frame: 3 Days, Location: None Selected Activity/Diet/Wound Care/Special Instructions: Activity: As tolerated. Take breaks as needed. Diet: Heart healthy and carb consistent diet. Avoid salts, or foods with hidden salts such as canned or boxed foods and frozen dinners. Extra salt makes your heart work harder and traps the fluid in your body for longer. Special Instructions: Take all of your medications as directed and remember to keep all of your doctor's appointments and follow-up as needed. Thank you for allowing us to participate in your care, it was truly a pleasure having you for our patient!!! Discharge Disposition: HOME SELF-CARE
== END 2023-01-26 16:21 | disposition home or self-care (01) | DRG 682 ==
LOC: EC 18:09 → 3SCARD 21:13 → 4SSUR 01-22 13:45
PROVIDERS: ADMIT Internal Medicine; ATTEND Internal Medicine
DX: N17.0 Acute kidney failure with tubular necrosis (principal); I21.A1 Myocardial infarction type 2; D61.818 Other pancytopenia; E87.1 Hypo-osmolality and hyponatremia; I42.9 Cardiomyopathy, unspecified; I48.92 Unspecified atrial flutter; E87.20 Acidosis, unspecified; D75.89 Other specified diseases of blood and blood-forming organs; N18.31 Chronic kidney disease, stage 3a; E83.42 Hypomagnesemia; E87.6 Hypokalemia; E87.8 Other disorders of electrolyte and fluid balance, not elsewhere classified; I07.1 Rheumatic tricuspid insufficiency; I27.20 Pulmonary hypertension, unspecified; I95.9 Hypotension, unspecified; R00.0 Tachycardia, unspecified; K21.9 Gastro-esophageal reflux disease without esophagitis; I13.10 Hypertensive heart and chronic kidney disease without heart failure, with stage 1 through stage 4 chronic kidney disease, or unspecified chronic kidney disease; Z87.891 Personal history of nicotine dependence; I25.10 Atherosclerotic heart disease of native coronary artery without angina pectoris; I25.2 Old myocardial infarction; I45.10 Unspecified right bundle-branch block; I48.0 Paroxysmal atrial fibrillation; M10.9 Gout, unspecified; N20.0 Calculus of kidney; R79.1 Abnormal coagulation profile; Z79.01 Long term (current) use of anticoagulants; Z79.899 Other long term (current) drug therapy; Z86.73 Personal history of transient ischemic attack (TIA), and cerebral infarction without residual deficits; Z95.5 Presence of coronary angioplasty implant and graft
CPT/HCPCS: 36415; 51798; 70450; 71046; 73502; 76770; 80048; 80053; 81003; 82607; 82747; 83605; 83735; 83880; 84100; 84439; 84443; 84481; 84484; 85025; 85027; 85610; 85730; 93005; 93306; 94760; 96361; 96365; 96375; 99291

== ENCOUNTER 2023-10-28 00:31 | Inpatient (IN) | payer MEDICARE ==
--- NOTE | 2023-10-28 01:04 | ED ---
Chest Pain HPI - General Chief Complaint: Chest Pain Stated Complaint: Weakness Time Seen by Provider: 10/28/23 00:47 Source: patient, EMS, RN notes reviewed, old records reviewed, Caregiver Mode of arrival: EMS Limitations: no limitations, altered mental status, physical limitation - History of Present Illness Initial Comments: This is a 73-year-old male with multiple complaints may be some A-fib may be chest pain now participating in activities of daily living at home, patient has been not able to take care of his animals at home including a dog and a cat there is significantly malnourished fluid all results actually meant house is unlivable secondary to condition of living and patient has not gotten out of bed and what they believe is about 3 to 4 days MD Complaint: chest pain -: days(s) Pain Location: substernal Pain Radiation: none Severity: severe Severity scale (1-10): 9 Consistency: constant Improves With: nothing, eating Other Symptoms: other Treatments Prior to Arrival: none - Related Data Home Medications Medication Instructions Recorded Confirmed Furosemide [Lasix] 20 mg PO DAILY 01/21/23 10/28/23 Previous Rx's Medication Instructions Recorded Apixaban [Eliquis] 5 mg PO BID #60 tab 04/16/18 Midodrine [ProAmatine] 2.5 mg PO AC-TID 30 Days #90 tab 01/26/23 Allergies Allergy/AdvReac Type Severity Reaction Status Date / Time No Known Allergies Allergy Verified 10/28/23 09:20 Review of Systems ROS Statement: Those systems with pertinent positive or pertinent negative responses have been documented in the HPI. ROS Other: All systems not noted in ROS Statement are negative. EKG Findings - EKG Comments: EKG Findings:: EKG Is A-fib 105 QRS 77 QTc 338 - EKG Results: EKG: interpreted by PABLO Past Medical History Past Medical History: Atrial Fibrillation, CVA/TIA, GERD/Reflux, Hypertension, Myocardial Infarction ([place]) Additional Past Medical History / Comment(s): CVA-2006 no residual Last Myocardial Infarction Date:: History of Any Multi-Drug Resistant Organisms: None Reported Past Surgical History: Heart Catheterization Past Anesthesia/Blood Transfusion Reactions: No Reported Reaction Past Psychological History: No Psychological Hx Reported Smoking Status: Former smoker Past Alcohol Use History: Daily Past Drug Use History: None Reported - Past Family History Mother Family Medical History: No Reported History Father Family Medical History: Cancer General Exam Limitations: altered mental status, physical limitation General appearance: alert, anxious, in distress Head exam: Present: atraumatic, normocephalic, normal inspection Eye exam: Present: normal appearance, PERRL, EOMI. Absent: scleral icterus, conjunctival injection, periorbital swelling ENT exam: Present: normal exam, mucous membranes moist Neck exam: Present: normal inspection. Absent: tenderness, meningismus, lymphadenopathy Respiratory exam: Present: normal lung sounds bilaterally. Absent: respiratory distress, wheezes, rales, rhonchi, stridor Cardiovascular Exam: Present: regular rate, normal rhythm, normal heart sounds. Absent: systolic murmur, diastolic murmur, rubs, gallop, clicks GI/Abdominal exam: Present: soft, normal bowel sounds. Absent: distended, tenderness, guarding, rebound, rigid Extremities exam: Present: normal inspection, full ROM, normal capillary refill. Absent: tenderness, pedal edema, joint swelling, calf tenderness Back exam: Present: normal inspection Neurological exam: Present: alert, oriented X3, CN II-XII intact Psychiatric exam: Present: normal affect, normal mood Skin exam: Present: warm, dry, intact, normal color. Absent: rash Course Vital Signs 10/28/23 10/28/23 10/28/23 00:37 03:42 04:18 Temperature 97.0 F L 98.6 F Pulse Rate 60 110 H 114 H Respiratory 18 18 18 Rate Blood Pressure 120/100 108/95 144/114 O2 Sat by Pulse 97 97 Oximetry Fraction of Inspired Oxygen (FIO2) 10/28/23 10/28/23 10/28/23 06:00 08:35 09:10 Temperature Pulse Rate 80 80 80 Respiratory 34 H 18 36 H Rate Blood Pressure 129/93 125/75 101/69 O2 Sat by Pulse 97 92 L 86 L Oximetry Fraction of Inspired Oxygen (FIO2) 10/28/23 10/28/23 10/28/23 09:15 09:20 09:27 Temperature Pulse Rate 89 91 84 Respiratory 34 H 40 H 40 H Rate Blood Pressure 106/79 108/82 128/98 O2 Sat by Pulse 91 L 92 L 93 L Oximetry Fraction of Inspired Oxygen (FIO2) 10/28/23 10/28/23 10/28/23 09:35 09:40 09:45 Temperature Pulse Rate 91 93 78 Respiratory 38 H 16 16 Rate Blood Pressure 123/107 120/98 107/82 O2 Sat by Pulse 90 L 96 93 L Oximetry Fraction of 100 Inspired Oxygen (FIO2) 10/28/23 10/28/23 10/28/23 09:58 10:00 11:00 Temperature Pulse Rate 81 73 Respiratory 16 20 Rate Blood Pressure 94/67 O2 Sat by Pulse 91 L 90 L Oximetry Fraction of 100 Inspired Oxygen (FIO2) 10/28/23 10/28/23 10/28/23 11:17 11:44 13:00 Temperature Pulse Rate 73 70 Respiratory 16 16 Rate Blood Pressure 92/64 103/71 O2 Sat by Pulse 90 L 93 L Oximetry Fraction of 100 Inspired Oxygen (FIO2) 10/28/23 10/28/23 13:16 13:37 Temperature Pulse Rate 68 61 Respiratory 16 Rate Blood Pressure 100/60 O2 Sat by Pulse 90 L Oximetry Fraction of Inspired Oxygen (FIO2) - Reevaluation(s) Reevaluation #1: 10/28/23 03:41 Records reviewed Reevaluation #2: 10/28/23 03:41 Patient symptoms unchanged Reevaluation #3: 10/28/23 03:41 Patient informed of results and questions answered Reevaluation #4: Was pt. sent in by a medical professional or institution (, PA, PELOTA MA[employer]ER, urgent care, hospital, or shelter...) When possible be specific @ -no Did you speak to anyone other than the patient for history (EMS, parent, family, police, friend...)? What history was obtained from this source @ -no Did you review nursing and triage notes (agree or disagree)? Why? @ -agree Are old charts reviewed (outside hosp., previous admission, EMS record, old EKG, old radiological studies, urgent care reports/EKG's, shelter records)? Report findings @ -yes Differential Diagnosis (chest pain, altered mental status, abdominal pain women, abdominal pain men, vaginal bleeding, weakness, fever, dyspnea, syncope, headache, dizziness, GI bleed, back pain, seizure, CVA, palpatations, mental health, musculoskeletal)? @ -prior EKG interpreted by me (3pts min.). @ -yes X-rays interpreted by me (1pt min.). @ -yes negative for acute disease CT interpreted by me (1pt min.). @ -Yes significant for pleural effusion U/S interpreted by me (1pt. min.). @ -no What testing was considered but not performed or refused? (CT, X-rays, U/S, labs)? Why? @ -none What meds were considered but not given or refused? Why? @ -none Did you discuss the management of the patient with other professionals (professionals i.e. Dr., PA, [employer], lab, RT, psych nurse, family welfare social work professor, valuer, teacher, senior major gifts officer, rn field case manager)? Give summary @ -no Was smoking cessation discussed for >3mins.? @ -no Was critical care preformed (if so, how long)? @ -yes31 Were there social determinants of health that impacted care today? How? (Homelessness, low income, unemployed, alcoholism, drug addiction, transportation, low edu. Level, literacy, decrease access to med. care, detention, rehab)? @ -none Was there de-escalation of care discussed even if they declined (Discuss DNR or withdrawal of care, Hospice)? DNR status @ -no What co-morbidities impacted this encounter? (DM, HTN, Smoking, COPD, CAD, Cancer, CVA, ARF, Chemo, Hep., AIDS, mental health diagnosis, sleep apnea, morbid obesity)? @ -none Was patient admitted / discharged? Hospital course, mention meds given and ro sheryl, prescriptions, significant lab abnormalities, going to OR and other pertinent info. @ - 73-year-old male to ER for altered mental status confusion and increased falls failure to thrive, significant pleural effusion, elevated troponin significant supportive care, patient will be admitted for likely need for placement Admitted Undiagnosed new problem with uncertain prognosis? @ -no Drug Therapy requiring intensive monitoring for toxicity (Heparin, Nitro, Insulin, Cardizem)? @ -no Were any procedures done? @ -no Diagnosis/symptom? @ -Altered mental status, weakness, pleural effusion, alcohol abuse Acute, or Chronic, or Acute on Chronic? @ -Acute Uncomplicated (without systemic symptoms) or Complicated (systemic symptoms)? @ -Complicated Side effects of treatment? @ -no Exacerbation, Progression, or Severe Exacerbation? @ -exacerbation Poses a threat to life or bodily function? How? (Chest pain, [place], [place], pneumonia, PE, COPD, DKA, ARF, appy, cholecystitis, CVA, Diverticulitis, Homicidal, Suicidal, threat to staff... and all critical care pts) @ -yes extremes of age alteration of mental status Reevaluation #5: Differential Altered Mental Status: Hypoglycemia, DKA, hypercapnia, ETOH, overdose, CO poisoning, trauma, myxedema coma, HTN encephalopathy, infection, encephalitis, psychosis, intercranial hemorrhage, hepatic encephalopathy, meningitis, CVA, this is not meant to be an all-inclusive list - Consultations Consultation #1: Spoke with [facility] who agrees to admit this patient Chest Pain MDM - MDM 73-year-old male to ER for altered mental status confusion and increased falls failure to thrive, patient will be admitted for likely need for placement Critical Care Time Critical Care Time: Yes Total Critical Care Time: 31 Disposition Clinical Impression: Altered mental status, Acute non-ST elevation myocardial infarction (NSTEMI), Weakness, Debility, FTT (failure to thrive) in adult, Alcohol abuse, Atrial fibrillation with RVR, Acute kidney injury, Pleural effusion, left Disposition: ADMITTED IP TO THIS HOSP Condition: Fair Is patient prescribed a controlled substance at d/c from ED?: No Time of Disposition: 03:30
--- NOTE | 2023-10-28 01:50 | CT ---
EXAM: CT Head Without Intravenous Contrast CLINICAL HISTORY: ITS.REASON CT Reason: ams TECHNIQUE: Axial computed tomography images of the head/brain without intravenous contrast. CTDI is 49.2 mGy and DLP is 1197.4 mGy-cm. This CT exam was performed using one or more of the following dose reduction techniques: automated exposure control, adjustment of the mA and/or kV according to patient size, and/or use of iterative reconstruction technique. COMPARISON: 01/23/2023 FINDINGS: Brain: No hemorrhage, herniation, or mass effect. Chronic microvascular ischemic changes. Ventricles: No hydrocephalus. Age related cerebral volume loss. Bones/joints: Unremarkable. Soft tissues: Unremarkable. Sinuses: No air fluid levels. Mastoid air cells: Clear. IMPRESSION: No acute hemorrhage, hydrocephalus, or mass effect.
[2023-10-28] MEDS: SODIUM CHLORIDE 0.9% 500 ML 500 ML IV STA (01:58)
[2023-10-28] MEDS: LORazepam 2 MG/ML INJ IV STA ×2 (01:58→03:50)
[2023-10-28] MEDS: SODIUM CHLORIDE 0.9% 1,000 ML IV STA ×2 (01:58)
[2023-10-28 02:08] LABS: Basophils % (A) 0 %; Eosinophils # (A) 0.1 k/uL (0-0.7); Eosinophils % (A) 1 %; HCT 42.3 % (39.0-53.0); HGB 13.6 gm/dL (13.0-17.5); Hypochromasia Moderate; Lymphocytes # (A) 1.1 k/uL (1.0-4.8); Lymphocytes % (A) 21 %; MCH 30.7 pg (25.0-35.0); MCV 95.7 fL (80.0-100.0); Mean Platelet Volume 9.3; Monocytes # (A) 0.3 k/uL (0-1.0); Monocytes % (A) 5 %; Neutrophils # (A) 3.6 k/uL (1.3-7.7); Neutrophils % (A) 70 %; Platelet Count 176 k/uL (150-450); RBC 4.42 m/uL (4.30-5.90); RDW 15.5 % (11.5-15.5); WBC 5.2 k/uL (3.8-10.6)
--- NOTE | 2023-10-28 02:22 | XR ---
EXAM: XR Chest, 1 View CLINICAL HISTORY: ITS.REASON XR Reason: sob TECHNIQUE: Frontal view of the chest. COMPARISON: No relevant prior studies available. Impression: Severe left pleural effusion. Cardiomegaly.
[2023-10-28 02:35] LABS: ALT 16 U/L (4-49); AST 28 U/L (17-59); African American GFR (CKD) 57 (>60 ml/min/1.73 sqM); Albumin 3.4 g/dL (3.5-5.0); Alcohol <10 mg/dL; Alkaline Phosphatase 87 U/L (38-126); Anion Gap 10 mmol/L; Blood Urea Nitrogen 16 mg/dL (9-20); Calcium 9.2 mg/dL (8.4-10.2); Carbon Dioxide 25 mmol/L (22-30); Chloride 106 mmol/L (98-107); Glucose 93 mg/dL (74-99); Magnesium 1.8 mg/dL (1.6-2.3); Non-African American GFR(CKD) 49 (>60 ml/min/1.73 sqM); Phosphorus 3.7 mg/dL (2.5-4.5); Potassium 3.9 mmol/L (3.5-5.1); Sodium 141 mmol/L (137-145); Total Bilirubin 2.1 mg/dL (0.2-1.3); Total Protein 6.4 g/dL (6.3-8.2)
[2023-10-28 02:42] LABS: INR 1.3 (<1.2); Partial Thromboplastin Time 26.2 sec (22.0-30.0); Prothrombin Time 13.3 sec (10.0-12.5)
[2023-10-28 02:44] LABS: NT-Pro-B-Type Natriuretic Pept 22700 pg/mL
[2023-10-28] MEDS ORDERED: LORazepam 1 MG TAB PO PRN ×4 (03:35)
[2023-10-28] MEDS ORDERED: MORPHINE SULFATE 4 MG/ML SYRINGE IV PRN (03:35)
[2023-10-28] MEDS ORDERED: LORazepam 0.5 MG TAB PO PRN (03:35)
[2023-10-28] MEDS ORDERED: NALOXONE 0.4 MG/ML 1 ML VIAL IV PRN (03:35)
[2023-10-28] MEDS: SODIUM CHLORIDE 0.9% 1,000 ML IV ONE (04:31)
[2023-10-28] MEDS: DILTIAZEM DRIP BOLUS FROM BAG 1 MG SOLN IV ONE (04:37)
[2023-10-28] MEDS: DILTIAZEM 125 MG in SODIUM CHLORIDE 0.9% 100 ML IV SCH (04:37)
[2023-10-28 04:47] LABS: ABG Base Excess -6.1 mmol/L; ABG HCO3 19 mmol/L (21-25); ABG Oxygen Saturation 96.3 % (94-97); ABG PCO2 37 mmHg (35-45); ABG PH 7.32 (7.35-7.45); ABG PO2 90 mmHg (83-108); ABG TCO2 21 mmol/L (19-24); Allen Test Performed? Yes
[2023-10-28] MEDS: SODIUM CHLORIDE 0.9% 1,000 ML IV SCH (04:51)
[2023-10-28 05:22] LABS: Amorphous Sediment,Urine Rare /hpf; Appearance,Urine Clear (Clear); Bilirubin,Urine Negative (Negative); Blood,Urine Trace (Negative); Color,Urine Yellow; Glucose,Urine (UA) Negative (Negative); Hyaline Casts,Urine 22 /lpf (0-2); Ketones,Urine Negative (Negative); Leukocyte Esterase,Urine Negative (Negative); Mucus,Urine Moderate /hpf; Nitrite,Urine Negative (Negative); Protein,Urine Trace (Negative); RBC,Urine 3 /hpf (0-5); Specific Gravity,Urine 1.013 (1.001-1.035); Squamous Epithelial Cell,Urine <1 /hpf (0-4); WBC,Urine 3 /hpf (0-5)
--- NOTE | 2023-10-28 06:08 | CT ---
EXAM: CT Angiography Chest With Intravenous Contrast CLINICAL HISTORY: ITS.REASON CT Reason: yes TECHNIQUE: Axial computed tomographic angiography images of the chest with intravenous contrast. CTDI is 14.7 mGy and DLP is 991.2 mGy-cm. This CT exam was performed using one or more of the following dose reduction techniques: automated exposure control, adjustment of the mA and/or kV according to patient size, and/or use of iterative reconstruction technique. MIP reconstructed images were created and reviewed. COMPARISON: No relevant prior studies available. FINDINGS: Pulmonary arteries: Motion artifact limits evaluation. Despite this, no evidence of pulmonary embolism within the pulmonary outflow tract or immediate proximal branches. Aorta: Atherosclerotic disease. No thoracic aortic aneurysm. Lungs: Nondependent right upper lobe airspace disease. Findings may be infectious in nature. Sequela of alveolar pulmonary edema is less likely. No mass. Pleural space: Large left pleural effusion with moderate right pleural effusion. No pneumothorax. Heart: Cardiomegaly. No significant pericardial effusion. No evidence of RV dysfunction. Bones/joints: Degenerative changes in the spine. Chronic right rib fractures. No acute fracture. No dislocation. Soft tissues: Unremarkable. Lymph nodes: Unremarkable. No enlarged lymph nodes. Liver: Cirrhotic morphology of the liver. Intraperitoneal space: Partially visualized large volume mesenteric ascites. IMPRESSION: 1. Motion artifact limits evaluation. Despite this, no evidence of pulmonary embolism within the pulmonary outflow tract or immediate proximal branches. 2. Sequela of volume overload as described with mesenteric ascites and pleural effusions. 3. Cirrhotic morphology of the liver. 4. Cardiomegaly. 5. Other incidental findings as described.
--- NOTE | 2023-10-28 06:21 | CT ---
EXAM: CT Abdomen and Pelvis With Intravenous Contrast CLINICAL HISTORY: ITS.REASON CT Reason: yes TECHNIQUE: Axial computed tomography images of the abdomen and pelvis with intravenous contrast. CTDI is normal 14.7 mGy and DLP is 991.2 mGy-cm. This CT exam was performed using one or more of the following dose reduction techniques: automated exposure control, adjustment of the mA and/or kV according to patient size, and/or use of iterative reconstruction technique. COMPARISON: No relevant prior studies available. FINDINGS: Artifacts: Motion artifact limits evaluation. Lung bases: Unremarkable. No mass. No consolidation. Pleural space: Large left and small right pleural effusions. Heart: Cardiomegaly. ABDOMEN: Liver: Cirrhotic morphology of the liver. Evidence in the left lobe of liver measuring up to 1.5 cm. Consider MRI for further characterization. Gallbladder and bile ducts: Unremarkable. No calcified stones. No ductal dilation. Pancreas: Unremarkable. No mass. No ductal dilation. Spleen: Unremarkable. No splenomegaly. Adrenals: Unremarkable. No mass. Kidneys and ureters: Moderate left renal hydronephrosis. Transition point is within the left distal ureter with 1.8 cm mass. Upstream 2 mm calculus suspected adjacent to this mass. Consider urological imaging. Stomach and bowel: No evidence of bowel obstruction. Colonic diverticulosis. No evidence of diverticulitis per. PELVIS: Appendix: No findings to suggest acute appendicitis. Bladder: Yeung within the bladder. Reproductive: Unremarkable as visualized. ABDOMEN and PELVIS: Intraperitoneal space: Moderate mesenteric ascites. No free air. Bones/joints: No acute fracture. No dislocation. Soft tissues: Anasarca. Vasculature: Atherosclerotic disease. No abdominal aortic aneurysm. Lymph nodes: Unremarkable. No enlarged lymph nodes. IMPRESSION: 1. Motion artifact limits evaluation. 2. Moderate left renal hydronephrosis. Transition point is within the left distal ureter with 1.8 cm mass. Upstream 2 mm calculus suspected adjacent to this mass. Consider urological imaging. 3. Evidence in the left lobe of liver measuring up to 1.5 cm. Consider MRI for further characterization. 4. Sequela of volume overload as described. 5. Cirrhotic morphology of the liver. 6. Other incidental findings as described.
[2023-10-28] MEDS: LORazepam 2 MG/ML INJ IV PRN ×2 (07:01→08:34)
--- NOTE | 2023-10-28 08:19 | US ---
EXAMINATION TYPE: US chest DATE OF EXAM: 10/28/2023 COMPARISON: NONE CLINICAL INDICATION: Male, 73 years old with history of bilateral pleural effusions; Bilat chest Limited due to patient mental status TECHNIQUE: Targeted ultrasound of the posterior lower bilateral hemithoraces EXAM MEASUREMENTS: Right Pleural Effusion pocket size: 0 cm Left Pleural Effusion pocket size: 9.1 cm Left skin surface to fluid distance: 2.6 cm Right side NOT marked for possible thoracentesis outside the dept. Left side marked for possible thoracentesis outside the dept. Pulmonologists are able to review the images in the patient?s EMR. IMPRESSIONS: Left side marked for possible thoracentesis.
[2023-10-28] MEDS: FUROSEMIDE 10 MG/ML 4 ML VIAL IV STA (09:02)
[2023-10-28 09:10] LABS: Glucose,Whole Blood 100 mg/dL (70-110)
[2023-10-28] MEDS: SUCCINYLCHOLINE CHLORIDE 200 MG/10 ML VIAL IV STA (09:34)
[2023-10-28] MEDS: ETOMIDATE 2 MG/ML 10 ML VIAL IVP STA (09:34)
--- NOTE | 2023-10-28 10:05 | XR ---
EXAMINATION TYPE: XR chest 1V portable DATE OF EXAM: 10/28/2023 9:56 AM CLINICAL INDICATION: Male, 73 years old with history of respiratory distress; [facility] COMPARISON: Chest radiographs from 10/28/2023 TECHNIQUE: XR chest 1V portable Frontal view of the chest. FINDINGS: Lungs/Pleura: No evidence of focal consolidation or pneumothorax. Blunting of the left costophrenic a ngle costophrenic angles is present. No right pleural effusion within the visualized. Pulmonary vascularity: Unremarkable. Heart/mediastinum: Cardiomediastinal silhouette is enlarged. Musculoskeletal: No acute osseous pathology. Other findings: None Lines/Tubes: Endotracheal tube with distal tip 1.5 cm above the nikko. Nasogastric tube with its distal tip and side-port projecting under the diaphragm. IMPRESSION: Large left pleural effusion with associated atelectasis and cardiomegaly. Endotracheal and nasogastri c tubes in appropriate position.
[2023-10-28 10:18] LABS: ABG Base Excess -5.6 mmol/L; ABG HCO3 21 mmol/L (21-25); ABG Oxygen Saturation 95.4 % (94-97); ABG PCO2 45 mmHg (35-45); ABG PH 7.28 (7.35-7.45); ABG PO2 87 mmHg (83-108); ABG TCO2 23 mmol/L (19-24); Allen Test Performed? Yes
--- NOTE | 2023-10-28 10:52 | P.CRDCN ---
History of Present Illness Consult date: 10/28/23 Consult reason: non-Q-wave [place] History of present illness: 73-year-old gentleman with history of atrial fibrillation who presented to the hospital with shortness of breath and confusion. At the time of my evaluation he appears confused and unresponsive in the ICU. An EKG shows atrial fibrillation with controlled ventricular rate. Troponin is mildly elevated. As is the lactic acid. There is no history of chest pain prior to coming in. The re is no history of focal neurological deficits. No history of seizure disorder. Past medical history significant for atrial fibrillation hypertension cardiomyopathy and mitral regurgitation. Medications are as charted allergies are as charted review of systems I am unable to obtain from the patient On exam patient is confused in restraints and not responsive. Heart rate is 86 bpm blood pressure is 130/80 chest exam reveals diminished air entry with occasional rhonchi heart exam reveals first and second heart sounds are regular rhythm and a systolic murmur at the apex abdomen is soft examination extremities reveals bilateral moderate pitting edema Labs show that the troponins are slightly elevated EKG shows atrial fibrillation with nonspecific ST-T wave changes Assessment and plan: Congestive heart failure probably acute on chronic systolic Persistent atrial fibrillation with controlled ventricular rate Elevated troponin of unclear etiology and significance not suggestive of myoc ardial infarction Confusion of unclear etiology Will obtain a 2D echo once patient is less combative I will start the patient on Lasix Workup of confusion per primary. It is not related to heart failure or the elevated troponin Past Medical History Past Medical History: Atrial Fibrillation, CVA/TIA, GERD/Reflux, Hypertension, Myocardial Infarction ([place]) Additional Past Medical History / Comment(s): CVA-2006 no residual Last Myocardial Infarction Date:: History of Any Multi-Drug Resistant Organisms: None Reported Past Surgical History: Heart Catheterization Past Anesthesia/Blood Transfusion Reactions: No Reported Reaction Past Psychological History: No Psychological Hx Reported Smoking Status: Former smoker Past Alcohol Use History: Daily Past Drug Use History: None Reported - Past Family History Mother Family Medical History: No Reported History Father Family Medical History: Cancer Medications and Allergies Home Medications Medication Instructions Recorded Confirmed Type Apixaban [Eliquis] 5 mg PO BID #60 tab 04/16/18 10/28/23 Rx Furosemide [Lasix] 20 mg PO DAILY 01/21/23 10/28/23 History Midodrine [ProAmatine] 2.5 mg PO AC-TID 30 Days #90 tab 01/26/23 10/28/23 Rx Allergies Allergy/AdvReac Type Severity Reaction Status Date / Time No Known Allergies Allergy Verified 10/28/23 09:20 Physical Exam Vitals: Vital Signs Temp Pulse Resp BP Pulse Ox FiO2 10/28/23 10:00 81 16 91 L 10/28/23 09:58 100 10/28/23 09:45 78 16 107/82 93 L 10/28/23 09:40 93 16 120/98 96 100 10/28/23 09:35 91 38 H 123/107 90 L 10/28/23 09:27 84 40 H 128/98 93 L 10/28/23 09:20 91 40 H 108/82 92 L 10/28/23 09:15 89 34 H 106/79 91 L 10/28/23 09:10 80 36 H 101/69 86 L 10/28/23 08:35 80 18 125/75 92 L 10/28/23 06:00 80 34 H 129/93 97 10/28/23 04:18 98.6 F 114 H 18 144/114 97 10/28/23 03:42 110 H 18 108/95 10/28/23 00:37 97.0 F L 60 18 120/100 97 Intake and Output 10/27/23 10/28/23 10/28/23 22:59 06:59 14:59 Intake Total 6.960 Balance 6.960 Intake: Intake, IV Titration 6.960 Amount propofoL 1,000 mg In 6.960 Empty Bag 1 bag @ 15 MCG/ KG/MIN 6.736 mls/hr IV . [id number] [facility] Rx#:[id number] Other: Weight 74.843 kg Results 10/28/23 01:00 10/28/23 01:00 Cardiac Enzymes 10/28/23 10/28/23 10/28/23 Range/Units 01:00 01:00 05:22 AST 28 (17-59) U/L Troponin I 0.058 H* 0.059 H* (0.000-0.034) ng/mL Coagulation 10/28/23 Range/Units 01:00 PT 13.3 H (10.0-12.5) sec APTT 26.2 (22.0-30.0) sec CBC 10/28/23 Range/Units 01:00 WBC 5.2 (3.8-10.6) k/uL RBC 4.42 (4.30-5.90) m/uL Hgb 13.6 (13.0-17.5) gm/dL Hct 42.3 (39.0-53.0) % Plt Count 176 (150-450) k/uL Comprehensive Metabolic Panel 10/28/23 Range/Units 01:00 Sodium 141 (137-145) mmol/L Potassium 3.9 (3.5-5.1) mmol/L Chloride 106 (98-107) mmol/L Carbon Dioxide 25 (22-30) mmol/L BUN 16 (9-20) mg/dL Creatinine 1.43 H (0.66-1.25) mg/dL Glucose 93 (74-99) mg/dL Calcium 9.2 (8.4-10.2) mg/dL AST 28 (17-59) U/L ALT 16 (4-49) U/L Alkaline Phosphatase 87 (38-126) U/L Total Protein 6.4 (6.3-8.2) g/dL Albumin 3.4 L (3.5-5.0) g/dL Current Medications Generic Name Dose Route Start Last Admin Trade Name Freq PRN Reason Stop Dose Admin Folic Acid 1 mg 10/28/23 09:00 Folic Acid 1 Mg Tab PO DAILY [facility] Furosemide 40 mg 10/28/23 21:00 Furosemide 10 Mg/Ml 4 Ml Vial IV Q12HR [facility] Sodium Chloride 1,000 mls @ 130 mls/hr 10/28/23 03:45 10/28/23 04:51 Saline 0.9% IV 130 mls/hr .[id number] [facility] Administration Diltiazem HCl 125 mg/ Sodium 125 mls @ 5 mls/hr 10/28/23 04:45 10/28/23 04:37 Chloride IV 5 mg/hr .Q24H [facility] 5 mls/hr Administration 5 MG/HR Propofol 1,000 mg/ IV Solution 100 mls @ 6.736 mls/hr 10/28/23 09:38 10/28/23 10:10 IV 45 mcg/kg/min .[id number] [facility] 20.208 mls/hr Titration Protocol 15 MCG/KG/MIN Lorazepam 2 mg 10/28/23 03:35 10/28/23 07:01 Lorazepam 2 Mg/Ml Inj IV 10/30/23 03:35 2 mg Q10M PRN Administration CIWA 16 or higher Lorazepam 1 mg 10/28/23 03:35 Lorazepam 2 Mg/Ml Inj IV Q2HR PRN CIWA 8 or 9 Lorazepam 1 mg 10/28/23 03:35 10/28/23 08:34 Lorazepam 2 Mg/Ml Inj IV 1 mg Q1HR PRN Administration CIWA 10 to 15 Lorazepam 2 mg 10/28/23 03:35 Lorazepam 1 Mg Tab PO Q3HR PRN Ciwa 8 To 9 Lorazepam 2 mg 10/28/23 03:35 Lorazepam 1 Mg Tab PO Q2HR PRN Ciwa 10 or greater Lorazepam 1 mg 10/28/23 03:35 Lorazepam 1 Mg Tab PO Q4HR PRN Ciwa 6 To 7 Lorazepam 0.5 mg 10/28/23 03:35 Lorazepam 0.5 Mg Tab PO Q4HR PRN Ciwa 4 To 5 Lorazepam 1 mg 10/28/23 03:35 Lorazepam 1 Mg Tab PO Q1HR PRN Alcohol Withdrawal Morphine Sulfate 4 mg 10/28/23 03:35 Morphine Sulfate 4 Mg/Ml Syringe IV Q4HR PRN Severe Pain (Scale 7 to 10) Multivitamins 1 each 10/28/23 09:00 Multivitamins, Thera 1 Each Tab PO DAILY [facility] Naloxone HCl 0.2 mg 10/28/23 03:35 Naloxone 0.4 Mg/Ml 1 Ml Vial IV Q2M PRN Opioid Reversal Ondansetron HCl 4 mg 10/28/23 03:35 Ondansetron 4 Mg/2 Ml Vial IVP Q8HR PRN Nausea And Vomiting Pantoprazole Sodium 40 mg 10/28/23 09:00 Pantoprazole 40 Mg/10 Ml Vial IV DAILY [facility] Intake and Output 10/27/23 10/28/23 10/28/23 22:59 06:59 14:59 Intake Total 6.960 Balance 6.960 Intake: Intake, IV Titration 6.960 Amount propofoL 1,000 mg In 6.960 Empty Bag 1 bag @ 15 MCG/ KG/MIN 6.736 mls/hr IV . [id number] [facility] Rx#:[id number] Other: Weight 74.843 kg 10/28/23 01:00 10/28/23 01:00
[2023-10-28] MEDS: PANTOPRAZOLE 40 MG/10 ML VIAL IV SCH (11:01)
[2023-10-28] MEDS: MULTIVITAMINS, THERA 1 EACH TAB PO SCH (11:01)
[2023-10-28] MEDS: FOLIC ACID 1 MG TAB PO SCH (11:01)
--- NOTE | 2023-10-28 11:59 | P.CNPUL ---
History of Present Illness Consult date: 10/28/23 Requesting physician: Shree Beach Reason for consult: dyspnea, hypoxemia, pleural effusion, abnormal CXR/CT Chief complaint: Pleural effusion. History of present illness: Pulmonary consult dated October 28, 2023. This is a 73-year-old male who presented to the emergency department, on October 27, shortly after 12 AM. The patient came in with multiple complaints including chest pain, and weakness. Apparently, the patient has been living in squalid conditions at home, and was unable to take care of his animals, including a dog and a cat, and his living condition apparently has been significant for him. He apparently has not gotten out of bed for 3 to 4 days, according to the ER shreya. We were asked to see the patient because of pleural effusion. We saw the patient down in the emergency department, room #8. The patient was very lethargic and somnolent, having received Ativan recently, because of concerns of alcohol withdrawal syndrome. The patient was on O2 at 3 L. He was found to have a left-sided pleural effusion, and atrial fibrillation, he was placed on Cardizem at 5 mg an hour. The patient apparently has a history of CVA, atrial fibrillation, gastroesophageal reflux disease, myocardial infarction, hypertension, and is a smoker, and drinks heavily. Current labs include a white count 5.2, hemoglobin 13.6, hematocrit 42.3, and a normal platelet count. PT was 13.3 with an INR of 1.3. Blood gases showed a pO2 of 87, pCO2 of 45, and a pH of 7.28. Sodium 141, potassium 3.9, chlorides 106, CO2 25, anion gap 10, BUN 16, creatinine 1.43. The patient's troponin was 0.061. N-terminal proBNP was 22,700. The patient's TSH was 19. Albumin was 3.4. Urine showed trace protein, trace blood, rare sediment. Serum alcohol was less than 10. Brain CT showed nothing acute. Initial chest x-ray showed a large left pleural effusion. CT angiogram was negative for pulmonary embolism, and showed primarily volume overload, with ascites, and pleural effusion. CT of the abdomen showed moderate left renal hydronephrosis, volume overload, and a cirrhotic liver among other things. Ultrasound of the left chest reveals a 9.1 cm pocket of fluid on the left side, with nothing on the right side. The patient continued to receive Ativan in the emergency department, and became so somnolent, he essentially had near respiratory arrest, and was electively intubated, for airway protection and respiratory support. His post intubation chest x-ray showed a properly placed endotracheal tube. Review of Systems REVIEW OF SYSTEMS: CONSTITUTIONAL: Weakness. NEUROLOGIC: [ Negative.] HEENT: [ Negative.] CARDIAC: [Negative.] PULMONARY: Shortness of breath. GI: [Negative.] : [Negative.] RHEUMATOLOGIC: [ Negative.] IMMUNOLOGIC: [ Negative.] ENDOCRINE: [Negative. ] DERMATOLOGIC: [Negative.] Past Medical History Past Medical History: Atrial Fibrillation, CVA/TIA, GERD/Reflux, Hypertension, Myocardial Infarction ([place]) Additional Past Medical History / Comment(s): CVA-2006 no residual Last Myocardial Infarction Date:: History of Any Multi-Drug Resistant Organisms: None Reported Past Surgical History: Heart Catheterization Past Anesthesia/Blood Transfusion Reactions: No Reported Reaction Past Psychological History: No Psychological Hx Reported Smoking Status: Former smoker Past Alcohol Use History: Daily Past Drug Use History: None Reported - Past Family History Mother Family Medical History: No Reported History Father Family Medical History: Cancer Medications and Allergies Home Medications Medication Instructions Recorded Confirmed Type Apixaban [Eliquis] 5 mg PO BID #60 tab 04/16/18 10/28/23 Rx Furosemide [Lasix] 20 mg PO DAILY 01/21/23 10/28/23 History Midodrine [ProAmatine] 2.5 mg PO AC-TID 30 Days #90 tab 01/26/23 10/28/23 Rx Allergies Allergy/AdvReac Type Severity Reaction Status Date / Time No Known Allergies Allergy Verified 10/28/23 09:20 Physical Exam Osteopathic Statement: *. No significant issues noted on an osteopathic structural exam other than those noted in the History and Physical/Consult. Vitals: Vital Signs Temp Pulse Resp BP Pulse Ox FiO2 10/28/23 11:17 100 10/28/23 11:00 73 20 94/67 90 L 10/28/23 10:00 81 16 91 L 10/28/23 09:58 100 10/28/23 09:45 78 16 107/82 93 L 10/28/23 09:40 93 16 120/98 96 100 10/28/23 09:35 91 38 H 123/107 90 L 10/28/23 09:27 84 40 H 128/98 93 L 10/28/23 09:20 91 40 H 108/82 92 L 10/28/23 09:15 89 34 H 106/79 91 L 10/28/23 09:10 80 36 H 101/69 86 L 10/28/23 08:35 80 18 125/75 92 L 10/28/23 06:00 80 34 H 129/93 97 10/28/23 04:18 98.6 F 114 H 18 144/114 97 10/28/23 03:42 110 H 18 108/95 10/28/23 00:37 97.0 F L 60 18 120/100 97 Intake and Output 10/27/23 10/28/23 10/28/23 22:59 06:59 14:59 Intake Total 2006.960 Output Total 800 Balance 1206.960 Intake: Intake, IV Titration 2006.960 Amount Diltiazem 125 mg In 2000 Sodium Chloride 0.9% 100 ml @ 5 MG/HR 5 mls/hr IV .Q24H [facility] Rx#:[id number] propofoL 1,000 mg In 6.960 Empty Bag 1 bag @ 15 MCG/ KG/MIN 6.736 mls/hr IV . [id number] [facility] Rx#:[id number] Output: Urine 800 Other: Weight 74.843 kg No acute distress, the patient is very lethargic and somnolent, and we saw the patient before he was intubated. The patient was on 3 L nasal cannula. HEENT examination is grossly unremarkable. Neck supple. Full range of motion. No adenopathy thyromegaly or neck vein distention. Cardiovascular examination reveals regular rhythm rate. S1-S2 normal. No S3 or S4. No discernible murmur noted. Heart rate is 73 bpm. Heart sounds are distant. Lungs reveal diminished breath sounds on the left side saturations are 90%. Abdomen soft bowel sounds are heard. No masses or tenderness. Extremities are intact. No cyanosis clubbing or edema. Skin is without rash or lesion. Neurologic examination reveals a patient who is very lethargic, and hard to arouse. Results - Laboratory Findings CBC and BMP: 10/28/23 01:00 10/28/23 01:00 ABG ABG pH 7.28 (7.35-7.45) L 10/28/23 10:15 ABG pCO2 45 mmHg (35-45) 10/28/23 10:15 ABG pO2 87 mmHg (83-108) 10/28/23 10:15 ABG O2 Saturation 95.4 % (94-97) 10/28/23 10:15 PT/INR, D-dimer PT 13.3 sec (10.0-12.5) H 10/28/23 01:00 INR 1.3 (<1.2) H 10/28/23 01:00 Abnormal lab findings: Abnormal Labs 10/28/23 10/28/23 10/28/23 01:00 01:00 01:00 PT 13.3 H INR 1.3 H ABG pH ABG HCO3 Creatinine 1.43 H Plasma Lactic Acid Michael 2.1 H* Total Bilirubin 2.1 H Troponin I Albumin 3.4 L TSH 19.000 H Urine Protein Urine Blood Amorphous Sediment Hyaline Casts Urine Mucus 10/28/23 10/28/23 10/28/23 01:00 04:39 04:45 PT INR ABG pH 7.32 L ABG HCO3 19 L Creatinine Plasma Lactic Acid Michael Total Bilirubin Troponin I 0.058 H* Albumin TSH Urine Protein Trace H Urine Blood Trace H Amorphous Sediment Rare H Hyaline Casts 22 H Urine Mucus Moderate H 10/28/23 10/28/23 10/28/23 05:22 05:22 10:00 PT INR ABG pH ABG HCO3 Creatinine Plasma Lactic Acid Michael 2.1 H* Total Bilirubin Troponin I 0.059 H* 0.061 H* Albumin TSH Urine Protein Urine Blood Amorphous Sediment Hyaline Casts Urine Mucus 10/28/23 10:15 PT INR ABG pH 7.28 L ABG HCO3 Creatinine Plasma Lactic Acid Michael Total Bilirubin Troponin I Albumin TSH Urine Protein Urine Blood Amorphous Sediment Hyaline Casts Urine Mucus - Diagnostic Findings Chest x-ray: image reviewed CT scan - chest: image reviewed Assessment and Plan Assessment: Respiratory compromise/failure, secondary to Ativan administration, requiring intubation and mechanical ventilation, October 28, 2023. Left-sided pleural effusion. History of CVA. History of atrial fibrillation, currently on Cardizem. Gastroesophageal reflux disease. History of myocardial infarction. History of hypertension. History of ongoing tobacco use. History of chronic alcohol abuse. Plan: Plan dated October 28, 2023. After we saw the patient in the emergency department, the patient continued to receive Ativan, and apparently his respiratory status declined even further, and the patient required intubation and mechanical ventilation, which took place in the emergency department. I was notified of this, from my charge nurse Vilma. The patient will be excepted into the intensive care unit. Additional recommendations and suggestions are forthcoming. Labs, x-rays, medications are reviewed. Prognosis is guarded. Additional recommendations and suggestions are forthcoming, and the patient's overall prognosis remains guarded as mentioned above. Time with Patient: Greater than 30
[2023-10-28] MEDS: CISATRACURIUM 2 MG/ML 5 ML VIAL IV ONE (14:00)
--- NOTE | 2023-10-28 14:11 | P.CNNES ---
History of Present Illness Consult date: 10/28/23 Requesting physician: Olivier Alston Reason for Consult: ams History of Present Illness: This is a 73-year-old gentleman presented because of multiple complaints including chest pain, weakness. Neurology is consulted for altered mental status. History is obtained from the patient's nurse and medical record. Flores munoz has history of significant alcohol use and it seems that his living condition poor and he is unable to take care of his animals including cat. He was very lethargic somnolent and he received Ativan and other sedate of. He had a chest x-ray was found to have left pleural effusion. The nurse patient hypoxic earlier. According to the nurse patient is very lethargic somnolent received Ativan. History of as stated heavy alcohol use, stroke, atrial fibrillation, [place], HTN and is smoker. The patient was intubated on a ventilator and is on IV propofol. Some of the other work-up consisted of : See with differential is unremarkable TSH is 19.0, free T4 is 1.32 ammonia Is less than Serum alcohol <10. CT of the head is reported as no acute hemorrhage, hydrocephalus or mass effect I personally reviewed the CT and I agree there is no acute or subacute stroke. The patient has this seems old encephalomalacia over the right parietal/occpital. Review of Systems Limited. Past Medical History Past Medical History: Atrial Fibrillation, CVA/TIA, GERD/Reflux, Hypertension, Myocardial Infarction ([place]) Additional Past Medical History / Comment(s): CVA-2006 no residual Last Myocardial Infarction Date:: History of Any Multi-Drug Resistant Organisms: None Reported Past Surgical History: Heart Catheterization Past Anesthesia/Blood Transfusion Reactions: No Reported Reaction Past Psychological History: No Psychological Hx Reported Smoking Status: Former smoker Past Alcohol Use History: Daily Past Drug Use History: None Reported - Past Family History Mother Family Medical History: No Reported History Father Family Medical History: Cancer Medications and Allergies Home Medications Medication Instructions Recorded Confirmed Type Apixaban [Eliquis] 5 mg PO BID #60 tab 04/16/18 10/28/23 Rx Furosemide [Lasix] 20 mg PO DAILY 01/21/23 10/28/23 History Midodrine [ProAmatine] 2.5 mg PO AC-TID 30 Days #90 tab 01/26/23 10/28/23 Rx Allergies Allergy/AdvReac Type Severity Reaction Status Date / Time No Known Allergies Allergy Verified 10/28/23 09:20 Physical Examination - Vital Signs Vital Signs: Vital Signs Temp Pulse Resp BP Pulse Ox FiO2 10/28/23 13:16 68 16 100/60 90 L 10/28/23 13:00 70 16 103/71 93 L 10/28/23 11:44 73 16 92/64 90 L 10/28/23 11:17 100 10/28/23 11:00 73 20 94/67 90 L 10/28/23 10:00 81 16 91 L 10/28/23 09:58 100 10/28/23 09:45 78 16 107/82 93 L 10/28/23 09:40 93 16 120/98 96 100 10/28/23 09:35 91 38 H 123/107 90 L 10/28/23 09:27 84 40 H 128/98 93 L 10/28/23 09:20 91 40 H 108/82 92 L 10/28/23 09:15 89 34 H 106/79 91 L 10/28/23 09:10 80 36 H 101/69 86 L 10/28/23 08:35 80 18 125/75 92 L 10/28/23 06:00 80 34 H 129/93 97 10/28/23 04:18 98.6 F 114 H 18 144/114 97 10/28/23 03:42 110 H 18 108/95 10/28/23 00:37 97.0 F L 60 18 120/100 97 Intake and Output 10/27/23 10/28/23 10/28/23 22:59 06:59 14:59 Intake Total 2006.960 Output Total 1600 Balance 406.960 Intake: Intake, IV Titration 2005.960 Amount Diltiazem 125 mg In 2000 Sodium Chloride 0.9% 100 ml @ 5 MG/HR 5 mls/hr IV .Q24H [facility] Rx#:[id number] propofoL 1,000 mg In 6.960 Empty Bag 1 bag @ 15 MCG/ KG/MIN 6.736 mls/hr IV . [id number] [facility] Rx#:[id number] Output: Urine 1600 Other: Weight 74.843 kg General: Lying in bed and does not appear in acute distress. Lung: Intubated on ventilator Neuro: Limited. Is on IV propofol and received Ativan earlier. Is stupor. I had to manually open his eyes. Primary gaze is midline. Pupils are 2-3mm bilaterally and reactive to light. No facial weakness from limitation. Motor: strength is limited but spontaneously moving ankles. Reflex: 1+ throughout. Plantars are mute bilaterally. Results - Laboratory Findings CBC and BMP: 10/28/23 01:00 10/28/23 01:00 Abnormal Lab Findings: Abnormal Labs 10/28/23 10/28/23 10/28/23 01:00 01:00 01:00 PT 13.3 H INR 1.3 H ABG pH ABG HCO3 Creatinine 1.43 H Plasma Lactic Acid Michael 2.1 H* Total Bilirubin 2.1 H Troponin I Albumin 3.4 L TSH 19.000 H Urine Protein Urine Blood Amorphous Sediment Hyaline Casts Urine Mucus 10/28/23 10/28/23 10/28/23 01:00 04:39 04:45 PT INR ABG pH 7.32 L ABG HCO3 19 L Creatinine Plasma Lactic Acid Michael Total Bilirubin Troponin I 0.058 H* Albumin TSH Urine Protein Trace H Urine Blood Trace H Amorphous Sediment Rare H Hyaline Casts 22 H Urine Mucus Moderate H 10/28/23 10/28/23 10/28/23 05:22 05:22 10:00 PT INR ABG pH ABG HCO3 Creatinine Plasma Lactic Acid Michael 2.1 H* Total Bilirubin Troponin I 0.059 H* 0.061 H* Albumin TSH Urine Protein Urine Blood Amorphous Sediment Hyaline Casts Urine Mucus 10/28/23 10:15 PT INR ABG pH 7.28 L ABG HCO3 Creatinine Plasma Lactic Acid Michael Total Bilirubin Troponin I Albumin TSH Urine Protein Urine Blood Amorphous Sediment Hyaline Casts Urine Mucus Assessment and Plan Assessment: This is a 73-year-old gentleman who presented emergency department because of multiple complaints including chest pain, weakness and neurologist consult for altered mental status. This seems to the patient is heavy alcohol use and chest x-ray shows large pleural effusion left. Pulse ox was 86 L on 6 L of oxygen. Altered Mental status is due to hypoxic encephalopathy as well as metabolic encephalopathy. The head is negative for any acute or subacute stroke. Large left pleural effusion Hypoxia Elevated Troponin History of stroke History of atrial fibrillation patient is supposed to be on Eliquis Heavy alcohol use Plan: I ordered a routine EEG. I started the patient on thiamine 100 mg daily Ordered Vitamin B12, folate Will defer the rest of the medical management to primary and other specialist. Plan discussed with patient's ED nurse Thank you for the consultation Time with Patient: Greater than 30
--- NOTE | 2023-10-28 14:12 | P.HPIM ---
History of Present Illness H&P Date: 10/28/23 This is a 73-year-old male who presented to the emergency department via EMS with reports from the emergency department that patient was altered and debilitated in his living situation at home is very unkempt including multiple animals who appear malnourished and on care for as well. Unsure of last primary care provider and any compliance to follow-up in the outpatient setting. Per medical record patient does have a history of atrial fibrillation with documented medication refills by chief security and safety officer Dr. Moralez earlier this year, history of CVA/TIA, GERD, hypertension, previous myocardial infarction, former smoker and significant daily EtOH use. Patient was admitted initially to [facility] for altered mental status with acute NSTEMI and weakness with debility, possible alcohol withdrawal and atrial fibrillation uncontrolled with RVR. EKG showed atrial fibrillation with RVR and heart rate was 105, brain CT was performed showing no acute hemorrhage hydrocephalus or mass effect. Chest x-ray showed severe left pleural effusion with cardiomegaly. Patient was started on CIWA protocol and also 2 to 3 L via nasal cannula. Patient did undergo CT angio of the chest with no evidence of PE within the pulmonary outflow tract or immediate proximal branches, significant sequela of volume overload with mesenteric ascites and pleural effusions with cirrhotic morphology of the liver and cardiomegaly. Chest ultrasound was performed and left side was marked for possible thoracentesis. The left pleural effusion pocket size is 9.1 cm. Labs reviewed and patient had a normal white count of 5.2, hemoglobin was 13.6, platelets 176, INR 1.3, ABG showed a low pH of 7.28 O2 saturation was 95%. Sodi um was 141 with a potassium of 3.9, BUN 16, creatinine mildly elevated at 1.43. Initial lactic acid was 2.1 and repeat remained the same and patient did receive a liter of fluids while in the ER and was continued on normal saline at a rate of 130 mL/h. Later patient did have a BNP drawn which significantly elevated at 22,700. TSH also found to be abnormal at 19 although free T4 was normal at 1. 32. Albumin was 3.4. Urinalysis was done and negative and serum alcohol was noted to be less than 10. Troponins were also mildly elevated at 0.061 and trending up. Patient noted to be restless per nursing staff in the ER and was given an additional dose of Valium along with Ativan and then became obtunded and nonresponsive and ultimately required mechanical ventilation to protect airway. Patient is now admitted to the ICU and is being started on Lasix. Cardizem was initiated as well and patient has since converted and Cardizem has been placed on hold. Cardiac/pulmonary have been consulted. Patient is currently intubated with an FiO2 of 100% and PEEP of 5 maintaining oxygen saturations above 90%. REVIEW OF SYSTEMS: Unable to completely assess as patient is now somnolent, obtunded, and unresponsive patient intubated maintained on propofol Active Medications Albuterol/Ipratropium (Ipratropium-Albuterol 3 Ml Neb) 3 ml INHALATION RT-Q4H [facility] Chlorhexidine Gluconate (Chlorhexidine Gluconate 15 Ml Cup) 15 ml MUCOUS MEM BID [facility] Folic Acid (Folic Acid 1 Mg Tab) 1 mg PO DAILY [facility] Last Admin: 10/28/23 11:01 Dose: 1 mg Furosemide (Furosemide 10 Mg/Ml 4 Ml Vial) 40 mg IV Q12HR [facility] Sodium Chloride (Saline 0.9%) 1,000 mls @ 130 mls/hr IV .[id number] [facility] Last Admin: 10/28/23 04:51 Dose: 130 mls/hr Diltiazem HCl 125 mg/ Sodium (Chloride) 125 mls @ 5 mls/hr IV .Q24H [facility] Last Admin: 10/28/23 04:37 Dose: 5 mg/hr, 5 mls/hr Propofol 1,000 mg/ IV Solution 100 mls @ 6.736 mls/hr IV .[id number] [facility]; Protocol Last Titration: 10/28/23 10:10 Dose: 45 mcg/kg/min, 20.208 mls/hr Lorazepam (Lorazepam 2 Mg/Ml Inj) 2 mg IV Q10M PRN PRN Reason: CIWA 16 or higher Stop: 10/30/23 03:35 Last Admin: 10/28/23 07:01 Dose: 2 mg Lorazepam (Lorazepam 2 Mg/Ml Inj) 1 mg IV Q2HR PRN PRN Reason: CIWA 8 or 9 Lorazepam (Lorazepam 2 Mg/Ml Inj) 1 mg IV Q1HR PRN PRN Reason: CIWA 10 to 15 Last Admin: 10/28/23 08:34 Dose: 1 mg Lorazepam (Lorazepam 1 Mg Tab) 2 mg PO Q3HR PRN PRN Reason: Ciwa 8 To 9 Lorazepam (Lorazepam 1 Mg Tab) 2 mg PO Q2HR PRN PRN Reason: Ciwa 10 or greater Lorazepam (Lorazepam 1 Mg Tab) 1 mg PO Q4HR PRN PRN Reason: Ciwa 6 To 7 Lorazepam (Lorazepam 0.5 Mg Tab) 0.5 mg PO Q4HR PRN PRN Reason: Ciwa 4 To 5 Lorazepam (Lorazepam 1 Mg Tab) 1 mg PO Q1HR PRN PRN Reason: Alcohol Withdrawal Morphine Sulfate (Morphine Sulfate 4 Mg/Ml Syringe) 4 mg IV Q4HR PRN PRN Reason: Severe Pain (Scale 7 to 10) Multivitamins (Multivitamins, Thera 1 Each Tab) 1 each PO DAILY [facility] Last Admin: 10/28/23 11:01 Dose: 1 each Naloxone HCl (Naloxone 0.4 Mg/Ml 1 Ml Vial) 0.2 mg IV Q2M PRN PRN Reason: Opioid Reversal Ondansetron HCl (Ondansetron 4 Mg/2 Ml Vial) 4 mg IVP Q8HR PRN PRN Reason: Nausea And Vomiting Pantoprazole Sodium (Pantoprazole 40 Mg/10 Ml Vial) 40 mg IV DAILY [facility] Last Admin: 10/28/23 11:01 Dose: 40 mg PHYSICAL EXAMINATION: GENERAL: The patient is alert and oriented x0 currently sedated on propofol on mechanical ventilation with an FiO2 of 100% and PEEP is 5, Well developed, pale, elderly appearing, ill-appearing HEENT: Pupils are round and equally reacting to light. EOMI. No scleral icterus. No conjunctival pallor. Normocephalic, atraumatic. No pharyngeal erythema. No thyromegaly. CARDIOVASCULAR: S1 and S2 muffled and irregular, currently sinus on the monitor with heart rates in the 60s on exam PULMONARY: Chest is diminished with crackles noted at the bases, no wheezing or accessory muscle use noted. ABDOMEN: Soft, obese nontender, nondistended, normoactive bowel sounds. No palpable organomegaly. MUSCULOSKELETAL: No joint swelling or deformity. EXTREMITIES: No cyanosis, clubbing, or pedal edema. Pale and ashen color of upper or lower extremities NEUROLOGICAL: Unable to completely assess as patient is on mechanical ventilation intubated. SKIN: No rashes. Assessment: Acute altered mental status, likely metabolic encephalopathy secondary to acute alcohol withdrawal, EtOH level was less than 10 the patient drinks heavily daily per medical record Acute hypoxic respiratory failure with respiratory compromise possibly secondary to multiple doses of Ativan and Valium requiring mechanical ventilation to protect the airway 10/28/2023 Congestive heart failure, acute exacerbation, likely acute on chronic, unknown EF, 2D echo is ordered and pending Large left pleural effusion with a BNP of 22,000 Lactic acidosis likely secondary to above Elevated troponin, unsure of NSTEMI, possibly type II mismatch History of atrial fibrillation, currently atrial fibrillation with rapid ventricular rate started on Cardizem History of CVA/TIA with no residual effects in 2006 History of myocardial infarction in 2019 History of GERD History of hypertension Former smoker Heavy daily alcohol use and drinks about a pint of rum per day Poor social support and poor living situation Noncompliance to medication and follow-up GI prophylaxis DVT prophylaxis Full code Plan: Patient was initially admitted with altered mental status and extremely poor living conditions per ER documentation for possible PT/OT therapy evaluation and social work also admitted for likely acute alcohol withdrawal Patient was placed on CIWA protocol and also given large doses of Ativan as well as Valium IV and became unresponsive and obtunded and an a team was called while in the ER hold due to respiratory compromise and patient was ultimately intubated and is now being admitted to the ICU Patient with significant volume overload and was given a liter bolus in the ER along with maintained on large dose IV fluid hydration and became more obtunded and respiratory distress requiring mechanical ventilation. BNP was noted to be 22,000 Cardiology and pulmonary river rafting guide consulted and patient will be observed cl osely in the ICU Patient started on IV Lasix and was given a dose emergently in the ER during the a team and will place on IV Lasix 40 mg daily and monitor kidney functions along with blood pressures. Follow-up on repeat labs Overall prognosis is guarded at this time Attempting to contact family and/or caregiver The impression and plan of care has been dictated by Linda Diop, Nurse Practitioner as directed. Dr. Anastacio MD I have performed a history and examination and MDM of this patient, discussed the same with the dictator, and agree with the dictator's assessment and plan as written ,documented as a scribe. Based on total visit time, I have performed more than 50% of the visit. Past Medical History Past Medical History: Atrial Fibrillation, CVA/TIA, GERD/Reflux, Hypertension, Myocardial Infarction ([place]) Additional Past Medical History / Comment(s): CVA-2006 no residual Last Myocardial Infarction Date:: History of Any Multi-Drug Resistant Organisms: None Reported Past Surgical History: Heart Catheterization Past Anesthesia/Blood Transfusion Reactions: No Reported Reaction Past Psychological History: No Psychological Hx Reported Smoking Status: Former smoker Past Alcohol Use History: Daily Past Drug Use History: None Reported - Past Family History Mother Family Medical History: No Reported History Father Family Medical History: Cancer Medications and Allergies Home Medications Medication Instructions Recorded Confirmed Type Apixaban [Eliquis] 5 mg PO BID #60 tab 04/16/18 10/28/23 Rx Furosemide [Lasix] 20 mg PO DAILY 01/21/23 10/28/23 History Midodrine [ProAmatine] 2.5 mg PO AC-TID 30 Days #90 tab 01/26/23 10/28/23 Rx Allergies Allergy/AdvReac Type Severity Reaction Status Date / Time No Known Allergies Allergy Verified 10/28/23 09:20 Physical Exam Vitals: Vital Signs Temp Pulse Resp BP Pulse Ox 10/28/23 09:15 89 34 H 106/79 91 L 10/28/23 09:10 80 26 H 101/69 86 L 10/28/23 08:35 80 18 125/75 92 L 10/28/23 06:00 80 34 H 129/93 97 10/28/23 04:18 98.6 F 114 H 18 144/114 97 10/28/23 03:42 110 H 18 108/95 10/28/23 00:37 97.0 F L 60 18 120/100 97 Intake and Output 10/27/23 10/28/23 10/28/23 22:59 06:59 14:59 Other: Weight 74.843 kg Results CBC & Chem 7: 10/28/23 01:00 10/28/23 01:00 Labs: Abnormal Lab Results - Last 24 Hours (Table) 10/28/23 10/28/23 10/28/23 Range/Units 01:00 01:00 01:00 PT 13.3 H (10.0-12.5) sec INR 1.3 H (<1.2) ABG pH (7.35-7.45) ABG HCO3 (21-25) mmol/L Creatinine 1.43 H (0.66-1.25) mg/dL Plasma Lactic Acid Michael 2.1 H* (0.7-2.0) mmol/L Total Bilirubin 2.1 H (0.2-1.3) mg/dL Troponin I (0.000-0.034) ng/mL Albumin 3.4 L (3.5-5.0) g/dL TSH 19.000 H (0.465-4.680) mIU/L Urine Protein (Negative) Urine Blood (Negative) Amorphous Sediment (None) /hpf Hyaline Casts (0-2) /lpf Urine Mucus (None) /hpf 10/28/23 10/28/23 10/28/23 Range/Units 01:00 04:39 04:45 PT (10.0-12.5) sec INR (<1.2) ABG pH 7.32 L (7.35-7.45) ABG HCO3 19 L (21-25) mmol/L Creatinine (0.66-1.25) mg/dL Plasma Lactic Acid Michael (0.7-2.0) mmol/L Total Bilirubin (0.2-1.3) mg/dL Troponin I 0.058 H* (0.000-0.034) ng/mL Albumin (3.5-5.0) g/dL TSH (0.465-4.680) mIU/L Urine Protein Trace H (Negative) Urine Blood Trace H (Negative) Amorphous Sediment Rare H (None) /hpf Hyaline Casts 22 H (0-2) /lpf Urine Mucus Moderate H (None) /hpf 10/28/23 10/28/23 Range/Units 05:22 05:22 PT (10.0-12.5) sec INR (<1.2) ABG pH (7.35-7.45) ABG HCO3 (21-25) mmol/L Creatinine (0.66-1.25) mg/dL Plasma Lactic Acid Michael 2.1 H* (0.7-2.0) mmol/L Total Bilirubin (0.2-1.3) mg/dL Troponin I 0.059 H* (0.000-0.034) ng/mL Albumin (3.5-5.0) g/dL TSH (0.465-4.680) mIU/L Urine Protein (Negative) Urine Blood (Negative) Amorphous Sediment (None) /hpf Hyaline Casts (0-2) /lpf Urine Mucus (None) /hpf
--- NOTE | 2023-10-28 14:27 | P.PN ---
Progress Note - Text Progress Note Date: 10/28/23 Technology Specialist reviewed patient's chart, however apparently patient is now intubated in the ICU. Spoke with RN over the phone. Will perform psychiatric evaluation once he is extubated.
[2023-10-28] MEDS: THIAMINE 100 MG/ML 2 ML VIAL IVP SCH (14:45)
--- NOTE | 2023-10-28 14:49 | XR ---
EXAMINATION TYPE: XR chest 1V portable DATE OF EXAM: 10/28/2023 2:15 PM CLINICAL INDICATION: Male, 73 years old with history of Tube placement; [facility] COMPARISON: Chest radiographs from 10/28/2023 TECHNIQUE: XR chest 1V portable Frontal view of the chest. FINDINGS: Lungs/Pleura: No evidence of focal consolidation or pneumothorax. Large left and small right pleural effusion suggested. Pulmonary vascularity: Unremarkable. Heart/mediastinum: Cardiomediastinal silhouette is unremarkable. Musculoskeletal: No acute osseous pathology. Other findings: None Lines/Tubes: Endotracheal tube with distal tip 2.8 cm above the nikko. Nasogastric tube with its distal tip and side-port projecting under the diaphragm. Left internal jugular central venous catheter with distal tip at the cavoatrial junction. IMPRESSION: Support tubes and left central venous catheter in appropriate position. Large left pleural effusion. Small right pleural effusion.
[2023-10-28] MEDS: SODIUM CHLORIDE 0.9% 500 ML 500 ML IV SCH (15:06)
[2023-10-28] MEDS: IPRATROPIUM-ALBUTEROL 3 ML NEB INHALATION SCH (15:16)
[2023-10-28 17:22] LABS: Glucose,Whole Blood 72 mg/dL (70-110)
[2023-10-28] MEDS: MIDODRINE 5 MG TAB PO SCH (18:14)
[2023-10-28] MEDS: CHLORHEXIDINE GLUCONATE 15 ML CUP MUCOUS MEM SCH (19:58)
[2023-10-28] MEDS: FUROSEMIDE 10 MG/ML 4 ML VIAL IV SCH (19:58)
[2023-10-28] MEDS: APIXABAN 5 MG TAB PO SCH (19:58)
[2023-10-28 23:18] LABS: Glucose,Whole Blood 81 mg/dL (70-110)
[2023-10-29 03:06] LABS: Basophils % (A) 0 %; Eosinophils % (A) 1 %; HCT 38.6 % (39.0-53.0); HGB 12.4 gm/dL (13.0-17.5); Hypochromasia Moderate; Lymphocytes # (A) 0.4 k/uL (1.0-4.8); Lymphocytes % (A) 7 %; MCH 30.7 pg (25.0-35.0); MCHC 32.3 g/dL (31.0-37.0); MCV 95.3 fL (80.0-100.0); Mean Platelet Volume 9.8; Monocytes # (A) 0.3 k/uL (0-1.0); Monocytes % (A) 5 %; Neutrophils # (A) 5.4 k/uL (1.3-7.7); Neutrophils % (A) 87 %; Platelet Count 138 k/uL (150-450); RBC 4.05 m/uL (4.30-5.90); RDW 15.7 % (11.5-15.5); WBC 6.2 k/uL (3.8-10.6)
[2023-10-29 03:21] LABS: ALT 12 U/L (4-49); AST 23 U/L (17-59); African American GFR (CKD) 69 (>60 ml/min/1.73 sqM); Albumin 2.6 g/dL (3.5-5.0); Alkaline Phosphatase 71 U/L (38-126); Anion Gap 9 mmol/L; Blood Urea Nitrogen 14 mg/dL (9-20); Calcium 8.3 mg/dL (8.4-10.2); Carbon Dioxide 22 mmol/L (22-30); Chloride 109 mmol/L (98-107); Glucose 85 mg/dL (74-99); Magnesium 1.6 mg/dL (1.6-2.3); Non-African American GFR(CKD) 60 (>60 ml/min/1.73 sqM); Phosphorus 3.5 mg/dL (2.5-4.5); Sodium 140 mmol/L (137-145); Total Bilirubin 1.6 mg/dL (0.2-1.3); Total Protein 5.2 g/dL (6.3-8.2)
[2023-10-29 03:29] LABS: Potassium 2.6 mmol/L (3.5-5.1)
[2023-10-29] MEDS ORDERED: Magnesium Replacement Protocol 1 EACH MISC MISCELLANE PRN (03:32)
[2023-10-29] MEDS ORDERED: Potassium Replacement Protocol 1 EACH MISC MISCELLANE PRN (03:32)
[2023-10-29] MEDS: MAGNESIUM SULFATE-D5W PMX 1 GM in DEXTROSE/WATER 1 100ML.BAG IVPB SCH (03:47)
[2023-10-29] MEDS: POTASSIUM CHLORIDE 20 MEQ in WATER FOR INJECTION 1 100ML.BAG IVPB SCH (03:48)
[2023-10-29 05:06] LABS: ABG Base Excess 1.4 mmol/L; ABG HCO3 25 mmol/L (21-25); ABG Oxygen Saturation 95.5 % (94-97); ABG PCO2 34 mmHg (35-45); ABG PH 7.47 (7.35-7.45); ABG PO2 71 mmHg (83-108); ABG TCO2 26 mmol/L (19-24); Allen Test Performed? Yes
[2023-10-29 06:34] LABS: Glucose,Whole Blood 101 mg/dL (70-110)
--- NOTE | 2023-10-29 08:14 | XR ---
EXAMINATION TYPE: XR chest 1V portable DATE OF EXAM: 10/29/2023 5:39 AM CLINICAL INDICATION: Male, 73 years old with history of Tube placement; [facility] COMPARISON: Chest radiograph from one day prior. TECHNIQUE: XR chest 1V portable Frontal view of the chest. FINDINGS: Lungs/Pleura: No evidence of focal consolidation or pneumothorax. Large left and small right pleural effusion suggested. Pulmonary vascularity: Pulmonary vascular congestion. Heart/mediastinum: Cardiomediastinal silhouette is unremarkable. Musculoskeletal: No acute osseous pathology. Other findings: None Lines/Tubes: Endotracheal tube with distal tip 2.4 cm above the nikko. Nasogastric tube with its distal tip and side-port projecting under the diaphragm. Left internal jugular central venous catheter with distal tip at the cavoatrial junction. IMPRESSION: 1. Pulmonary vascular congestion right lung suggested. 2. Support tubes and left central venous catheter in appropriate position. 3. Large left pleural effusion. Small right pleural effusion.
--- NOTE | 2023-10-29 08:59 | P.CONS ---
History of Present Illness - Reason for Consult Consult date: 10/29/23 wound care - History of Present Illness This is a 73-year-old patient being seen in ICU for nonhealing ulcerations to the left and right buttocks. Patient has a stage II pressure ulcer to left buttocks with multiple open ulcerations granulation and slough noted within the wound beds. The right buttocks has unstageable pressure ulcer with eschar to the wound bed. Minimal granulation. Patient's past medical history significant For atrial fibrillation, CVA, GERD, hypertension, [place]. Patient is a former smoker. No history of diabetes. Review of systems: Unable to obtain due to intubation Physical exam: General Appearance: Alert, cooperative, no distress, appears stated age. Skin: See HPI all other Skin color, texture, tugor normal, no rashes or lesions. Neurologic: Alert oriented x3 Assessment: 1. Unstageable pressure ulcer right buttocks 2. Stage II pressure ulcer left buttocks Plan: 1. Apply honey gel to the ulcerations zinc barrier cream to the periwound and sacral border foam. Change Friday. Turn patient to every 2 hours. Thank you for the consultation any questions please contact the wound care center DNP note has been reviewed and discussed with Dr. Grijalva and the impression and plan of care has been directed as dictated. Past Medical History Past Medical History: Atrial Fibrillation, CVA/TIA, GERD/Reflux, Hypertension, Myocardial Infarction ([place]) Additional Past Medical History / Comment(s): CVA-2006 no residual Last Myocardial Infarction Date:: History of Any Multi-Drug Resistant Organisms: None Reported Past Surgical History: Heart Catheterization Past Anesthesia/Blood Transfusion Reactions: No Reported Reaction Past Psychological History: No Psychological Hx Reported Smoking Status: Former smoker Past Alcohol Use History: Daily Past Drug Use History: None Reported - Past Family History Mother Family Medical History: No Reported History Father Family Medical History: Cancer Medications and Allergies Home Medications Medication Instructions Recorded Confirmed Type Apixaban [Eliquis] 5 mg PO BID #60 tab 04/16/18 10/28/23 Rx Furosemide [Lasix] 20 mg PO DAILY 01/21/23 10/28/23 History Midodrine [ProAmatine] 2.5 mg PO AC-TID 30 Days #90 tab 01/26/23 10/28/23 Rx Allergies Allergy/AdvReac Type Severity Reaction Status Date / Time No Known Allergies Allergy Verified 10/28/23 09:20 Physical Exam Vitals: Vital Signs Temp Pulse Resp BP Pulse Ox FiO2 10/29/23 07:51 98 10/29/23 07:44 86 50 10/29/23 07:00 97.8 F 86 17 93/66 98 10/29/23 06:00 87 16 98/64 98 10/29/23 05:00 98.3 F 90 25 H 108/54 98 50 10/29/23 04:15 91 10/29/23 04:04 50 10/29/23 04:01 93 10/29/23 04:00 95 21 108/58 99 60 10/29/23 03:54 60 10/29/23 03:00 90 17 102/59 99 10/29/23 02:00 96 22 99 10/29/23 01:00 99 20 98 10/29/23 00:30 88 10/29/23 00:29 60 10/29/23 00:14 91 10/29/23 00:12 70 10/29/23 00:00 98.3 F 87 23 100 60 10/28/23 23:00 95 22 98 10/28/23 22:00 85 22 96 10/28/23 21:00 90 18 96 70 10/28/23 20:15 76 10/28/23 20:03 74 10/28/23 20:00 71 18 99 70 10/28/23 19:59 70 10/28/23 19:00 71 13 100 60 10/28/23 18:30 71 16 99 10/28/23 18:00 71 17 99 60 10/28/23 17:30 67 16 99 10/28/23 17:00 66 16 98 70 10/28/23 16:30 66 17 96 70 10/28/23 16:24 70 10/28/23 16:00 65 16 96 80 10/28/23 15:30 67 16 98 10/28/23 15:24 66 10/28/23 15:17 80 10/28/23 15:16 65 10/28/23 15:00 66 16 99 100 10/28/23 14:45 55 L 16 100 10/28/23 14:30 91 F L 64 16 100 10/28/23 14:15 64 19 102/74 100 10/28/23 14:00 62 16 102/74 100 10/28/23 13:45 66 16 103/77 100 100 10/28/23 13:37 61 10/28/23 13:16 68 16 100/60 90 L 10/28/23 13:00 70 16 103/71 93 L 10/28/23 11:44 73 16 92/64 90 L 10/28/23 11:17 100 10/28/23 11:00 73 20 94/67 90 L 10/28/23 10:00 81 16 91 L 10/28/23 09:58 100 10/28/23 09:45 78 16 107/82 93 L 10/28/23 09:40 93 16 120/98 96 100 10/28/23 09:35 91 38 H 123/107 90 L 10/28/23 09:27 84 40 H 128/98 93 L 10/28/23 09:20 91 40 H 108/82 92 L 10/28/23 09:15 89 34 H 106/79 91 L 10/28/23 09:10 80 36 H 101/69 86 L Intake and Output 10/28/23 10/29/23 10/29/23 22:59 06:59 14:59 Intake Total 215.576 172.746 27.254 Output Total 2045 2350 125 Balance -1829.424 -2177.254 -97.746 Intake: IV 140 100 0 Sodium Chloride 0.9% 500 140 100 0 ml 500 ml @ 20 mls/hr IV .Q24H [facility] Rx#:[id number] Intake, IV Titration 15.576 72.746 27.254 Amount propofoL 1,000 mg In 15.576 72.746 27.254 Empty Bag 1 bag @ 15 MCG/ KG/MIN 6.736 mls/hr IV . [id number] [facility] Rx#:[id number] Other 60 Output: Urine 2045 2350 125 Other: Voiding Method Indwelling Catheter Indwelling Catheter Weight 84.9 kg ABP, PAP, CO, CI - Last 8 Hours Arterial Blood Pressure 99/56 Arterial Blood Pressure 103/58 Arterial Blood Pressure 97/53 Arterial Blood Pressure 101/53 Arterial Blood Pressure 109/53 Arterial Blood Pressure 100/50 Arterial Blood Pressure 104/53 Results CBC & Chem 7: 10/29/23 02:49 10/29/23 02:49 Labs: Abnormal Lab Results - Last 24 Hours (Table) 10/28/23 10/28/23 10/29/23 Range/Units 10:00 10:15 02:49 RBC 4.05 L (4.30-5.90) m/uL Hgb 12.4 L (13.0-17.5) gm/dL Hct 38.6 L (39.0-53.0) % RDW 15.7 H (11.5-15.5) % Plt Count 138 L (150-450) k/uL Lymphocytes # 0.4 L (1.0-4.8) k/uL ABG pH 7.28 L (7.35-7.45) ABG pCO2 (35-45) mmHg ABG pO2 (83-108) mmHg ABG Total CO2 (19-24) mmol/L Potassium (3.5-5.1) mmol/L Chloride (98-107) mmol/L Calcium (8.4-10.2) mg/dL Total Bilirubin (0.2-1.3) mg/dL Troponin I 0.061 H* (0.000-0.034) ng/mL Total Protein (6.3-8.2) g/dL Albumin (3.5-5.0) g/dL 10/29/23 10/29/23 Range/Units 02:49 05:02 RBC (4.30-5.90) m/uL Hgb (13.0-17.5) gm/dL Hct (39.0-53.0) % RDW (11.5-15.5) % Plt Count (150-450) k/uL Lymphocytes # (1.0-4.8) k/uL ABG pH 7.47 H (7.35-7.45) ABG pCO2 34 L (35-45) mmHg ABG pO2 71 L (83-108) mmHg ABG Total CO2 26 H (19-24) mmol/L Potassium 2.6 L* (3.5-5.1) mmol/L Chloride 109 H (98-107) mmol/L Calcium 8.3 L (8.4-10.2) mg/dL Total Bilirubin 1.6 H (0.2-1.3) mg/dL Troponin I (0.000-0.034) ng/mL Total Protein 5.2 L (6.3-8.2) g/dL Albumin 2.6 L (3.5-5.0) g/dL Assessment and Plan (1) Unstageable pressure ulcer of right buttock Current Visit: Yes Status: Acute Code(s): L89.310 - PRESSURE ULCER OF RIGHT BUTTOCK, UNSTAGEABLE SNOMED Code(s): 60140532349931008 (2) Pressure ulcer of left buttock, stage 2 Current Visit: Yes Status: Acute Code(s): L89.322 - PRESSURE ULCER OF LEFT BUTTOCK, STAGE 2 SNOMED Code(s): 74727219659424
[2023-10-29] MEDS: LEVOTHYROXINE IVP 100 MCG/5 ML VIAL IV SCH (09:19)
[2023-10-29] MEDS: ZINC OXIDE PASTE (Z-GUARD) 1 APPLIC TOPICAL SCH (09:26)
--- NOTE | 2023-10-29 10:48 | P.PN ---
Subjective Progress Note Date: 10/29/23 Principal diagnosis: Respiratory failure. Pulmonary consult dated October 28, 2023. This is a 73-year-old male who presented to the emergency department, on October 27, shortly after 12 AM. The patient came in with multiple complaints including chest pain, and weakness. Apparently, the patient has been living in squalid conditions at home, and was unable to take care of his animals, including a dog and a cat, and his living condition apparently has been significant for him. He apparently has not gotten out of bed for 3 to 4 days, according to the ER shreya. We were asked to see the patient because of pleural effusion. We saw the patient down in the emergency department, room #8. The patient was very lethargic and somnolent, having received Ativan recently, because of concerns of alcohol withdrawal syndrome. The patient was on O2 at 3 L. He was found to have a left-sided pleural effusion, and atrial fibrillation, he was placed on Cardizem at 5 mg an hour. The patient apparently has a history of CVA, atrial fibrillation, gastroesophageal reflux disease, myocardial infarction, hypertension, and is a smoker, and drinks heavily. Current labs include a white count 5.2, hemoglobin 13.6, hematocrit 42.3, and a normal platelet count. PT was 13.3 with an INR of 1.3. Blood gases showed a pO2 of 87, pCO2 of 45, and a pH of 7.28. Sodium 141, potassium 3.9, chlorides 106, CO2 25, anion gap 10, BUN 16, creatinine 1.43. The patient's troponin was 0.061. N-terminal proBNP was 22,700. The patient's TSH was 19. Albumin was 3.4. Urine showed trace protein, trace blood, rare sediment. Serum alcohol was less than 10. Brain CT showed nothing acute. Initial chest x-ray showed a large left pleural effusion. CT angiogram was negative for pulmonary embolism, and showed primarily volume overload, with ascites, and pleural effusion. CT of the abdomen showed moderate left renal hydronephrosis, volume overload, and a cirrhotic liver among other things. Ultrasound of the left chest reveals a 9.1 cm pocket of fluid on the left side, with nothing on the right side. The patient continued to receive Ativan in the emergency department, and became so somnolent, he essentially had near respiratory arrest, and was electively intubated, for airway protection and respiratory support. His post intubation chest x-ray showed a properly placed endotracheal tube. Progress note dated October 29, 2023. The patient is seen today in room 252. He remains on the mechanical ventilator. He was intubated yesterday, for impending respiratory failure, lethargy, and somnolence. Current ventilator settings include volume assist-control, rate 16, tidal volume 450, FiO2 50%, and PEEP of 5. Blood gases show pO2 71, pCO2 of 34, and a pH of 7.47. Currently, the patient is on saline at 10 cc an hour and propofol at 20 mcg/kg/min. He had an uneventful night according to the nurses. White count 6.2, hemoglobin 12.4, hematocrit 38.6, platelet count 138,000. Sodi um 140, potassium 2.6, chlorides 109, CO2 22, anion gap 9, BUN 14, creatinine 1.22. Glucose 101. Calcium 8.3. Albumin 2.6. Chest x-ray suggest fluid overload/CHF, and a large left-sided pleural effusion. Objective - Vital Signs Vital signs: Vital Signs Temp 98.1 F 10/29/23 08:00 Pulse 94 10/29/23 09:00 Resp 17 10/29/23 09:00 BP 101/63 10/29/23 09:00 Pulse Ox 98 10/29/23 09:00 FiO2 70 10/29/23 08:00 Intake & Output 10/28/23 10/29/23 10/29/23 18:59 06:59 18:59 Intake Total 2286.917 252.746 390.254 Output Total 2575 3720 475 Balance -288.083 -3467.254 -84.746 Weight 84.9 kg Intake: IV 80 180 63 0.9 60 Sodium Chloride 0.9% 500 80 180 0 ml 500 ml @ 20 mls/hr IV .Q24H [facility] Rx#:[id number] pressure bag 3 Intake, IV Titration 2146.917 72.746 227.254 Amount Diltiazem 125 mg In 2045. Sodium Chloride 0.9% 100 ml @ 5 MG/HR 5 mls/hr IV .Q24H [facility] Rx#:[id number] Potassium Chloride 20 meq 200 In Water For Injection 1 100ml.bag @ 50 mls/hr IVPB Q2H [facility] Rx#: [id number] propofoL 1,000 mg In 100.000 72.746 27.254 Empty Bag 1 bag @ 15 MCG/ KG/MIN 6.736 mls/hr IV . [id number] [facility] Rx#:[id number] Oral 100 Other 60 Output: Urine 2575 3720 475 Other: Voiding Method Indwelling Catheter Indwelling Catheter Indwelling Catheter ABP, PAP, CO, CI - Last Documented Arterial Blood Pressure 110/62 - Exam No acute distress, sedated, with an orally placed endotracheal tube. HEENT examination is grossly unremarkable. Neck supple. Full range of motion. No adenopathy thyromegaly or neck vein distention. Cardiovascular examination reveals regular rhythm rate. S1-S2 normal. No S3 or S4. No discernible murmur noted. Lungs reveal scattered rhonchi and crackles. No wheezes. Breath sounds equal. Abdomen soft bowel sounds are heard. No masses or tenderness. Extremities are intact. No cyanosis clubbing or edema. Skin is without rash or lesion. Neurologic examination could not be adequately assessed at this time. - Labs CBC & Chem 7: 10/29/23 02:49 10/29/23 02:49 Labs: Abnormal Lab Results - Last 24 Hours (Table) 10/28/23 10/29/23 10/29/23 Range/Units 10:00 02:49 02:49 RBC 4.05 L (4.30-5.90) m/uL Hgb 12.4 L (13.0-17.5) gm/dL Hct 38.6 L (39.0-53.0) % RDW 15.7 H (11.5-15.5) % Plt Count 138 L (150-450) k/uL Lymphocytes # 0.4 L (1.0-4.8) k/uL ABG pH (7.35-7.45) ABG pCO2 (35-45) mmHg ABG pO2 (83-108) mmHg ABG Total CO2 (19-24) mmol/L Potassium 2.6 L* (3.5-5.1) mmol/L Chloride 109 H (98-107) mmol/L Calcium 8.3 L (8.4-10.2) mg/dL Total Bilirubin 1.6 H (0.2-1.3) mg/dL Troponin I 0.061 H* (0.000-0.034) ng/mL Total Protein 5.2 L (6.3-8.2) g/dL Albumin 2.6 L (3.5-5.0) g/dL 10/29/23 Range/Units 05:02 RBC (4.30-5.90) m/uL Hgb (13.0-17.5) gm/dL Hct (39.0-53.0) % RDW (11.5-15.5) % Plt Count (150-450) k/uL Lymphocytes # (1.0-4.8) k/uL ABG pH 7.47 H (7.35-7.45) ABG pCO2 34 L (35-45) mmHg ABG pO2 71 L (83-108) mmHg ABG Total CO2 26 H (19-24) mmol/L Potassium (3.5-5.1) mmol/L Chloride (98-107) mmol/L Calcium (8.4-10.2) mg/dL Total Bilirubin (0.2-1.3) mg/dL Troponin I (0.000-0.034) ng/mL Total Protein (6.3-8.2) g/dL Albumin (3.5-5.0) g/dL Assessment and Plan Assessment: Respiratory compromise/failure, secondary to Ativan administration, requiring intubation and mechanical ventilation, October 28, 2023. Left-sided pleural effusion. History of CVA. History of atrial fibrillation. Hypothyroidism. Gastroesophageal reflux disease. History of myocardial infarction. History of hypertension. History of ongoing tobacco use. History of chronic alcohol abuse. Plan: Plan dated October 28, 2023. After we saw the patient in the emergency department, the patient continued to receive Ativan, and apparently his respiratory status declined even further, and the patient required intubation and mechanical ventilation, which took place in the emergency department. I was notified of this, from my charge nurse Vilma. The patient will be excepted into the intensive care unit. Additional recommendations and suggestions are forthcoming. Labs, x-rays, medications are reviewed. Prognosis is guarded. Additional recommendations and suggestions are forthcoming, and the patient's overall prognosis remains guarded as mentioned above. Plan dated October 29, 2023. The patient will have a daily interruption of sedation, and a spontaneous breathing trial. The patient was placed on pressure support of 5, and CPAP of 5. In addition, because his TSH is still high, the patient will get Synthroid 100 mcg IV push, beginning today. Labs, x-rays, and all medications are reviewed. We will continue to follow the patient, make recommendations along the way. Yesterday, a left subclavian central line was placed, along with a right radial art line. Additional recommendations and suggestions are forthcoming. Prognosis is guarded. Time with Patient: Greater than 30
--- NOTE | 2023-10-29 10:54 | P.PN ---
Subjective Progress Note Date: 10/29/23 Patient is intubated. He is currently in Afib with a HR of 99 and BP of 97/55. Potassium is 2.6. Creatinine down from 1.43 yesterday to 1.22 today. Unable to obtain ROS due to intubation and sedation. Objective - Vital Signs Vital signs: Vital Signs Temp 97.8 F 10/29/23 07:00 Pulse 86 10/29/23 07:44 Resp 17 10/29/23 07:00 BP 93/66 10/29/23 07:00 Pulse Ox 98 10/29/23 07:00 FiO2 50 10/29/23 07:44 Intake & Output 10/28/23 10/29/23 10/29/23 18:59 06:59 18:59 Intake Total 2286.917 252.746 27.254 Output Total 2575 3720 125 Balance -288.083 -3467.254 -97.746 Weight 84.9 kg Intake: IV 80 180 0 Sodium Chloride 0.9% 500 80 180 0 ml 500 ml @ 20 mls/hr IV .Q24H [facility] Rx#:[id number] Intake, IV Titration 2146.917 72.746 27.254 Amount Diltiazem 125 mg In 2046.917 Sodium Chloride 0.9% 100 ml @ 5 MG/HR 5 mls/hr IV .Q24H [facility] Rx#:[id number] propofoL 1,000 mg In 100.000 72.746 27.254 Empty Bag 1 bag @ 15 MCG/ KG/MIN 6.736 mls/hr IV . [id number] [facility] Rx#:[id number] Other 60 Output: Urine 2575 3720 125 Other: Voiding Method Indwelling Catheter Indwelling Catheter ABP, PAP, CO, CI - Last Documented Arterial Blood Pressure 99/56 - Exam Vital signs reviewed. General: Intubated. HEENT: Head exam is unremarkable. Lungs: Bilateral breath sounds present; occasional rhonchi; no wheezes or rales. Heart: Rate and rhythm are regular. S1S2 present. Abdomen: Nontender. Extremities: No edema present. - Labs CBC & Chem 7: 10/29/23 02:49 10/29/23 02:49 Labs: Abnormal Lab Results - Last 24 Hours (Table) 10/28/23 10/28/23 10/29/23 Range/Units 10:00 10:15 02:49 RBC 4.05 L (4.30-5.90) m/uL Hgb 12.4 L (13.0-17.5) gm/dL Hct 38.6 L (39.0-53.0) % RDW 15.7 H (11.5-15.5) % Plt Count 138 L (150-450) k/uL Lymphocytes # 0.4 L (1.0-4.8) k/uL ABG pH 7.28 L (7.35-7.45) ABG pCO2 (35-45) mmHg ABG pO2 (83-108) mmHg ABG Total CO2 (19-24) mmol/L Potassium (3.5-5.1) mmol/L Chloride (98-107) mmol/L Calcium (8.4-10.2) mg/dL Total Bilirubin (0.2-1.3) mg/dL Troponin I 0.061 H* (0.000-0.034) ng/mL Total Protein (6.3-8.2) g/dL Albumin (3.5-5.0) g/dL 10/29/23 10/29/23 Range/Units 02:49 05:02 RBC (4.30-5.90) m/uL Hgb (13.0-17.5) gm/dL Hct (39.0-53.0) % RDW (11.5-15.5) % Plt Count (150-450) k/uL Lymphocytes # (1.0-4.8) k/uL ABG pH 7.47 H (7.35-7.45) ABG pCO2 34 L (35-45) mmHg ABG pO2 71 L (83-108) mmHg ABG Total CO2 26 H (19-24) mmol/L Potassium 2.6 L* (3.5-5.1) mmol/L Chloride 109 H (98-107) mmol/L Calcium 8.3 L (8.4-10.2) mg/dL Total Bilirubin 1.6 H (0.2-1.3) mg/dL Troponin I (0.000-0.034) ng/mL Total Protein 5.2 L (6.3-8.2) g/dL Albumin 2.6 L (3.5-5.0) g/dL Assessment and Plan Assessment: 1. CHF, probably acute on chronic. Obtain 2D echo. 2. Persistent A-fib with controlled ventricular rate. 3. Elevated troponin, unclear etiology and significance not suggestive of myocardial infarction. 4. Hypokalemia. Currently being repleted. Plan: Obtain a 2D echo. Continue Lasix. Continue Cardizem. Continue Eliquis.
[2023-10-29 11:21] LABS: Glucose,Whole Blood 95 mg/dL (70-110)
[2023-10-29] MEDS: POTASSIUM BICARBONATE/CIT AC 20 MEQ TABLET.EFF PO ONE (12:20)
--- NOTE | 2023-10-29 14:50 | P.PN ---
Subjective Progress Note Date: 10/29/23 I am following-up with patient and he continues to be about the same. He continues to be intubated on ventilator and is on IV Propofol. Objective - Vital Signs Vital signs: Vital Signs Temp 98.0 F 10/29/23 12:00 Pulse 99 10/29/23 14:00 Resp 16 10/29/23 14:00 BP 101/63 10/29/23 09:00 Pulse Ox 100 10/29/23 14:00 FiO2 50 10/29/23 12:00 Intake & Output 10/28/23 10/29/23 10/29/23 18:59 06:59 18:59 Intake Total 2286.917 252.746 542.254 Output Total 2575 3720 1075 Balance -288.083 -3467.254 -532.746 Weight 84.9 kg 84.9 kg Intake: IV 80 180 155 0.9 140 Sodium Chloride 0.9% 500 80 180 0 ml 500 ml @ 20 mls/hr IV .Q24H [facility] Rx#:[id number] pressure bag 15 Intake, IV Titration 2146.917 72.746 227.254 Amount Diltiazem 125 mg In 2046.917 Sodium Chloride 0.9% 100 ml @ 5 MG/HR 5 mls/hr IV .Q24H [facility] Rx#:[id number] Potassium Chloride 20 meq 200 In Water For Injection 1 100ml.bag @ 50 mls/hr IVPB Q2H [facility] Rx#: [id number] propofoL 1,000 mg In 100.000 72.746 27.254 Empty Bag 1 bag @ 15 MCG/ KG/MIN 6.736 mls/hr IV . [id number] [facility] Rx#:[id number] Oral 100 Tube Feeding 60 Other 60 Output: Urine 2575 3720 1075 Other: Voiding Method Indwelling Catheter Indwelling Catheter Indwelling Catheter ABP, PAP, CO, CI - Last Documented Arterial Blood Pressure 103/56 - Exam General: Lying in bed and does not appear in acute distress. Lung: Intubated on ventilator Neuro: Limited. Is on IV propofol. Is stupor. I had to manually open his eyes. Primary gaze is midline. Pupils are 2mm bilaterally and sluggishly reactive to light. No facial weakness from limitation. Grimaces face to pain Motor: strength is limited. No spontaneous movement. Some of the other work-up consisted of : See with differential is unremarkable TSH is 19.0, free T4 is 1.32 ammonia Is less than Serum alcohol <10. Vitamin B12: 487 Serum Folate: 6.70 CT of the head is reported as no acute hemorrhage, hydrocephalus or mass effect I personally reviewed the CT and I agree there is no acute or subacute stroke. The patient has this seems old encephalomalacia over the right parietal/occpital. - Labs CBC & Chem 7: 10/29/23 02:49 10/29/23 11:20 Labs: Abnormal Lab Results - Last 24 Hours (Table) 10/29/23 10/29/23 10/29/23 Range/Units 02:49 02:49 05:02 RBC 4.05 L (4.30-5.90) m/uL Hgb 12.4 L (13.0-17.5) gm/dL Hct 38.6 L (39.0-53.0) % RDW 15.7 H (11.5-15.5) % Plt Count 138 L (150-450) k/uL Lymphocytes # 0.4 L (1.0-4.8) k/uL ABG pH 7.47 H (7.35-7.45) ABG pCO2 34 L (35-45) mmHg ABG pO2 71 L (83-108) mmHg ABG Total CO2 26 H (19-24) mmol/L Potassium 2.6 L* (3.5-5.1) mmol/L Chloride 109 H (98-107) mmol/L Calcium 8.3 L (8.4-10.2) mg/dL Total Bilirubin 1.6 H (0.2-1.3) mg/dL Total Protein 5.2 L (6.3-8.2) g/dL Albumin 2.6 L (3.5-5.0) g/dL Assessment and Plan Assessment: This is a 73-year-old gentleman who presented emergency department because of multiple complaints including chest pain, weakness and neurologist consult for altered mental status. This seems to the patient is heavy alcohol use and chest x-ray shows large pleural effusion left. Pulse ox was 86 L on 6 L of oxygen. Altered Mental status is due to hypoxic encephalopathy as well as metabolic encephalopathy. CT head is negative for any acute or subacute stroke. Large left pleural effusion Hypoxia Elevated Troponin Low normal folate (6.70) History of stroke History of atrial fibrillation patient is supposed to be on Eliquis Heavy alcohol use Plan: Prelminary routine EEG: No seizure or discharged Continue thiamine 100 mg daily Continue folic acid 1mg Will defer the rest of the medical management to primary and other specialist. Time with Patient: Less than 30
[2023-10-29 17:56] LABS: Glucose,Whole Blood 110 mg/dL (70-110)
--- NOTE | 2023-10-29 21:03 | EEG ---
ELECTROENCEPHALOGRAM REPORT CLINICAL HISTORY: This is a 73-year-old gentleman with altered mental status. The video EEG is obtained to evaluate for seizure epileptiform activity. RELEVANT MEDICATION: IV propofol. EEG TYPE: This is a routine 21-channel EEG with video using the 10/20 electrode placement system. DESCRIPTION: The patient is intubated on the ventilator. The background consists of [id number] voltage of 6-7 hertz activity altering with diffuse nonrhythmic delta activity. There is diffuse excessive beta activity. There is no focal slowing. Interictal and ictal are none. ACTIVATION PROCEDURE: Photic stimulation did not evoke a posterior driving response. There is no abnormality during the photic stimulation. Hyperventilation is none. CLINICAL INTERPRETATION: This is an abnormal routine EEG. The background slowing is suggestive of moderate encephalopathy. There is no focal slowing, epileptiform discharge, or seizure on the EEG. The excessive beta activity is due to medication effect (Propofol) vs sleep architecture. Clinical correlation is recommended. AMAN / MARIAMN: [id number] / MARITZA
[2023-10-29 23:57] LABS: Glucose,Whole Blood 112 mg/dL (70-110)
[2023-10-30] MEDS ORDERED: IPRATROPIUM-ALBUTEROL 3 ML NEB ONE
[2023-10-30 04:43] LABS: HCT 36.7 % (39.0-53.0); HGB 12.1 gm/dL (13.0-17.5); Hypochromasia Slight; MCHC 32.9 g/dL (31.0-37.0); Mean Platelet Volume 9.6; Platelet Count 140 k/uL (150-450); RDW 15.9 % (11.5-15.5); WBC 6.7 k/uL (3.8-10.6)
[2023-10-30 05:05] LABS: ABG Base Excess 5.6 mmol/L; ABG HCO3 29 mmol/L (21-25); ABG Oxygen Saturation 97.4 % (94-97); ABG PCO2 38 mmHg (35-45); ABG PO2 83 mmHg (83-108); ABG TCO2 30 mmol/L (19-24); Allen Test Performed? Yes
[2023-10-30 06:18] LABS: Glucose,Whole Blood 147 mg/dL (70-110)
[2023-10-30 06:21] LABS: African American GFR (CKD) 69 (>60 ml/min/1.73 sqM); Anion Gap 2 mmol/L; Blood Urea Nitrogen 14 mg/dL (9-20); Calcium 8.1 mg/dL (8.4-10.2); Carbon Dioxide 27 mmol/L (22-30); Chloride 105 mmol/L (98-107); Glucose 139 mg/dL (74-99); Non-African American GFR(CKD) 60 (>60 ml/min/1.73 sqM); Potassium 3.3 mmol/L (3.5-5.1); Sodium 134 mmol/L (137-145)
--- NOTE | 2023-10-30 07:03 | P.PN ---
Subjective Progress Note Date: 10/29/23 This is a 73-year-old male who presented to the emergency department via EMS with reports from the emergency department that patient was altered and debilitated in his living situation at home is very unkempt including multiple animals who appear malnourished and on care for as well. Unsure of last primary care provider and any compliance to follow-up in the outpatient setting. 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 Moralez earlier this year, history of CVA/TIA, GERD, hypertension, previous myocardial infarction, former smoker and significant daily EtOH use. Patient was admitted initially to [facility] for altered mental status with acute NSTEMI and weakness with debility, possible alcohol withdrawal and atrial fibrillation uncontrolled with RVR. EKG showed atrial fibrillation with RVR and heart rate was 105, brain CT was performed showing no acute hemorrhage hydrocephalus or mass effect. Chest x-ray showed severe left pleural effusion with cardiomegaly. Patient was started on CIWA protocol and also 2 to 3 L via nasal cannula. Patient did undergo CT angio of the chest with no evidence of PE within the pulmonary outflow tract or immediate proximal branches, significant sequela of volume overload with mesenteric ascites and pleural effusions with cirrhotic morphology of the liver and cardiomegaly. Chest ultrasound was performed and left side was marked for possible thoracentesis. The left pleural effusion pocket size is 9.1 cm. Labs reviewed and patient had a normal white count of 5.2, hemoglobin was 13.6, platelets 176, INR 1.3, ABG showed a low pH of 7.28 O2 saturation was 95%. Sodium was 141 with a potassium of 3.9, BUN 16, creatinine mildly elevated at 1.43. Initial lactic acid was 2.1 and repeat remained the same and patient did receive a liter of fluids while in the ER and was continued on normal saline at a rate of 130 mL/h. Later patient did have a BNP drawn which significantly elevated at 22,700. TSH also found to be abnormal at 19 although free T4 was normal at 1.32. Albumin was 3.4. Urinalysis was done and negative and serum alcohol was noted to be less than 10. Troponins were also mildly elevated at 0.061 and trending up. Patient noted to be restless per nursing staff in the ER and was given an additional dose of Valium along with Ativan and then became obtunded and nonresponsive and ultimately required mechanical ventilation to protect airway. Patient is now admitted to the ICU and is being started on Lasix. Cardizem was initiated as well and patient has since converted and Cardizem has been placed on hold. Cardiac/pulmonary have been consulted. Pierre rocha is currently intubated with an FiO2 of 100% and PEEP of 5 maintaining oxygen saturations above 90%. 10/29/2023 Patient seen in follow-up in the ICU continues on mechanical patient continues in the ICU on mechanical ventilation, FiO2 is 50% with PEEP of 5. Patient remains on propofol with multiple consultations following. Patient not requiring pressor support and is maintained on IV Lasix and diuresing. Patient with wounds to bilateral lower extremities with wound care on consult. Overall prognosis is guarded at this time. REVIEW OF SYSTEMS: Unable to completely assess as patient is now somnolent, obtunded, and unresponsive patient intubated maintained on propofol PHYSICAL EXAMINATION: GENERAL: The patient is alert and oriented x0 currently sedated on propofol on mechanical ventilation with an FiO2 of 50 % and PEEP is 5, Well developed, pale, elderly appearing, ill-appearing HEENT: Pupils are round and equally reacting to light. EOMI. No scleral icterus. No conjunctival pallor. Normocephalic, atraumatic. No pharyngeal erythema. No thyromegaly. CARDIOVASCULAR: S1 and S2 muffled and irregular, currently sinus on the monitor with heart rates in the 60s on exam PULMONARY: Chest is diminished with crackles noted at the bases, no wheezing or accessory muscle use noted. ABDOMEN: Soft, obese nontender, nondistended, normoactive bowel sounds. No palpable organomegaly. MUSCULOSKELETAL: No joint swelling or deformity. EXTREMITIES: No cyanosis, clubbing, or pedal edema. NEUROLOGICAL: Unable to completely assess as patient is on mechanical ventilation intubated. SKIN: No rashes. Less pale Assessment: Acute altered mental status, likely metabolic encephalopathy secondary to acute alcohol withdrawal, EtOH level was less than 10 the patient drinks heavily daily per medical record Acute hypoxic respiratory failure with respiratory compromise possibly secondary to multiple doses of Ativan and Valium requiring mechanical ventilation to protect the airway 10/28/2023 Congestive heart failure, acute exacerbation, likely acute on chronic, unknown EF, 2D echo is ordered and pending Large left pleural effusion with a BNP of 22,000 Lactic acidosis likely secondary to above Elevated troponin, unsure of NSTEMI, possibly type II mismatch History of atrial fibrillation, currently atrial fibrillation with rapid ventricular rate started on Cardizem History of CVA/TIA with no residual effects in 2006 History of myocardial infarction in 2019 History of GERD History of hypertension Stage II pressure ulcer of the left buttock, present on admission Unstageable pressure ulcer of the right buttock, present on admission Former smoker Heavy daily alcohol use and drinks about a pint of rum per day Poor social support and poor living situation Noncompliance to medication and follow-up GI prophylaxis DVT prophylaxis Full code Plan: Patient was initially admitted with altered mental status and extremely poor living conditions per ER documentation for possible PT/OT therapy evaluation and social work also admitted for likely acute alcohol withdrawal Patient was placed on CIWA protocol and also given large doses of Ativan as well as Valium IV and became unresponsive and obtunded and an a team was called while in the ER hold due to respiratory compromise and patient was ultimately intubated and is now being admitted to the ICU Patient with significant volume overload and was given a liter bolus in the ER along with maintained on large dose IV fluid hydration and became more obtunded and respiratory distress requiring mechanical ventilation. BNP was noted to be 22,000. Patient remains on mechanical ventilation weaning as tolerated and FiO2 is 50% with a PEEP of 5. Multiple consultations following undergoing neurological workup as well. Patient noted to have pressure ulcers and wound care on consultation Cardiology and pulmonary circuit court magistrate following as patient remains in the ICU Patient is continued on IV Lasix and will continue while watching output and kidney functions closely Overall prognosis is guarded at this time Case management/social work on consult regarding social issues and living situations. The impression and plan of care has been dictated by Linda Diop, Nurse Practitioner as directed. Dr. Anastacio MD I have performed a history and examination and MDM of this patient, discussed the same with the dictator, and agree with the dictator's assessment and plan as written ,documented as a scribe. Based on total visit time, I have performed more than 50% of the visit. Objective - Vital Signs Vital signs: Vital Signs Temp 98.1 F 10/29/23 08:00 Pulse 94 10/29/23 09:00 Resp 17 10/29/23 09:00 BP 101/63 10/29/23 09:00 Pulse Ox 98 10/29/23 09:00 FiO2 70 10/29/23 08:00 Intake & Output 10/28/23 10/29/23 10/29/23 18:59 06:59 18:59 Intake Total 2286.917 252.746 367.254 Output Total 2575 3720 275 Balance -288.083 -3467.254 92.254 Weight 84.9 kg Intake: IV 80 180 40 0.9 40 Sodium Chloride 0.9% 500 80 180 0 ml 500 ml @ 20 mls/hr IV .Q24H [facility] Rx#:[id number] Intake, IV Titration 2146.917 72.746 227.254 Amount Diltiazem 125 mg In 2046.917 Sodium Chloride 0.9% 100 ml @ 5 MG/HR 5 mls/hr IV .Q24H [facility] Rx#:[id number] Potassium Chloride 20 meq 200 In Water For Injection 1 100ml.bag @ 50 mls/hr IVPB Q2H [facility] Rx#: [id number] propofoL 1,000 mg In 100.000 72.746 27.254 Empty Bag 1 bag @ 15 MCG/ KG/MIN 6.736 mls/hr IV . [id number] [facility] Rx#:[id number] Oral 100 Other 60 Output: Urine 2575 3720 275 Other: Voiding Method Indwelling Catheter Indwelling Catheter Indwelling Catheter ABP, PAP, CO, CI - Last Documented Arterial Blood Pressure 110/62 - Labs CBC & Chem 7: 10/30/23 04:20 10/30/23 04:20 Labs: Abnormal Lab Results - Last 24 Hours (Table) 10/28/23 10/28/23 10/29/23 Range/Units 10:00 10:15 02:49 RBC 4.05 L (4.30-5.90) m/uL Hgb 12.4 L (13.0-17.5) gm/dL Hct 38.6 L (39.0-53.0) % RDW 15.7 H (11.5-15.5) % Plt Count 138 L (150-450) k/uL Lymphocytes # 0.4 L (1.0-4.8) k/uL ABG pH 7.28 L (7.35-7.45) ABG pCO2 (35-45) mmHg ABG pO2 (83-108) mmHg ABG Total CO2 (19-24) mmol/L Potassium (3.5-5.1) mmol/L Chloride (98-107) mmol/L Calcium (8.4-10.2) mg/dL Total Bilirubin (0.2-1.3) mg/dL Troponin I 0.061 H* (0.000-0.034) ng/mL Total Protein (6.3-8.2) g/dL Albumin (3.5-5.0) g/dL 10/29/23 10/29/23 Range/Units 02:49 05:02 RBC (4.30-5.90) m/uL Hgb (13.0-17.5) gm/dL Hct (39.0-53.0) % RDW (11.5-15.5) % Plt Count (150-450) k/uL Lymphocytes # (1.0-4.8) k/uL ABG pH 7.47 H (7.35-7.45) ABG pCO2 34 L (35-45) mmHg ABG pO2 71 L (83-108) mmHg ABG Total CO2 26 H (19-24) mmol/L Potassium 2.6 L* (3.5-5.1) mmol/L Chloride 109 H (98-107) mmol/L Calcium 8.3 L (8.4-10.2) mg/dL Total Bilirubin 1.6 H (0.2-1.3) mg/dL Troponin I (0.000-0.034) ng/mL Total Protein 5.2 L (6.3-8.2) g/dL Albumin 2.6 L (3.5-5.0) g/dL
[2023-10-30] MEDS: POTASSIUM BICARBONATE/CIT AC 20 MEQ TABLET.EFF NG-TUBE SCH (07:31)
--- NOTE | 2023-10-30 08:09 | XR ---
EXAMINATION TYPE: XR chest 1V portable DATE OF EXAM: 10/30/2023 3:41 AM CLINICAL INDICATION: Male, 73 years old with history of Tube placement; COMPARISON: Chest radiograph from one day prior. TECHNIQUE: XR chest 1V portable Frontal view of the chest. FINDINGS: Lungs/Pleura: No evidence of focal consolidation or pneumothorax. Similar blunting of the costophreni c angle compatible with layering pleural effusions. pulmonary vascularity: Pulmonary vascular congestion. Heart/mediastinum: Cardiomediastinal silhouette is unremarkable. Musculoskeletal: No acute osseous pathology. Other findings: None Lines/Tubes: Endotracheal tube with distal tip 2.4 cm above the nikko. Nasogastric tube with its distal tip and side-port projecting under the diaphragm. Left internal jugular central venous catheter with distal tip at the cavoatrial junction. IMPRESSION: 1. Pulmonary vascular congestion right lung suggested. 2. Support tubes and left central venous catheter in appropriate position. 3. Layering bilateral pleural effusions.
--- NOTE | 2023-10-30 11:06 | P.PN ---
Subjective Progress Note Date: 10/30/23 Principal diagnosis: Respiratory failure. Pulmonary consult dated October 28, 2023. This is a 73-year-old male who presented to the emergency department, on October 27, shortly after 12 AM. The patient came in with multiple complaints including chest pain, and weakness. Apparently, the patient has been living in squalid conditions at home, and was unable to take care of his animals, including a dog and a cat, and his living condition apparently has been significant for him. He apparently has not gotten out of bed for 3 to 4 days, according to the ER shreya. We were asked to see the patient because of pleural effusion. We saw the patient down in the emergency department, room #8. The patient was very lethargic and somnolent, having received Ativan recently, because of concerns of alcohol withdrawal syndrome. The patient was on O2 at 3 L. He was found to have a left-sided pleural effusion, and atrial fibrillation, he was placed on Cardizem at 5 mg an hour. The patient apparently has a history of CVA, atrial fibrillation, gastroesophageal reflux disease, myocardial infarction, hypertension, and is a smoker, and drinks heavily. Current labs include a white count 5.2, hemoglobin 13.6, hematocrit 42.3, and a normal platelet count. PT was 13.3 with an INR of 1.3. Blood gases showed a pO2 of 87, pCO2 of 45, and a pH of 7.28. Sodium 141, potassium 3.9, chlorides 106, CO2 25, anion gap 10, BUN 16, creatinine 1.43. The patient's troponin was 0.061. N-terminal proBNP was 22,700. The patient's TSH was 19. Albumin was 3.4. Urine showed trace protein, trace blood, rare sediment. Serum alcohol was less than 10. Brain CT showed nothing acute. Initial chest x-ray showed a large left pleural effusion. CT angiogram was negative for pulmonary embolism, and showed primarily volume overload, with ascites, and pleural effusion. CT of the abdomen showed moderate left renal hydronephrosis, volume overload, and a cirrhotic liver among other things. Ultrasound of the left chest reveals a 9.1 cm pocket of fluid on the left side, with nothing on the right side. The patient continued to receive Ativan in the emergency department, and became so somnolent, he essentially had near respiratory arrest, and was electively intubated, for airway protection and respiratory support. His post intubation chest x-ray showed a properly placed endotracheal tube. Progress note dated October 29, 2023. The patient is seen today in room 252. He remains on the mechanical ventilator. He was intubated yesterday, for impending respiratory failure, lethargy, and somnolence. Current ventilator settings include volume assist-control, rate 16, tidal volume 450, FiO2 50%, and PEEP of 5. Blood gases show pO2 71, pCO2 of 34, and a pH of 7.47. Currently, the patient is on saline at 10 cc an hour and propofol at 20 mcg/kg/min. He had an uneventful night according to the nurses. White count 6.2, hemoglobin 12.4, hematocrit 38.6, platelet count 138,000. Sodi um 140, potassium 2.6, chlorides 109, CO2 22, anion gap 9, BUN 14, creatinine 1.22. Glucose 101. Calcium 8.3. Albumin 2.6. Chest x-ray suggest fluid overload/CHF, and a large left-sided pleural effusion. Progress note dated October 30, 2023. The patient is seen today again in room 252. He remains on the mechanical ventilator. The patient did have a daily interruption of sedation yesterday, with an attempted spontaneous breathing trial, but he did poorly. He remains on volume assist-control, rate 16, tidal volume 450, FiO2 50%, PEEP of 5. Blood gases show pO2 of 83, pCO2 of 38, pH of 7.50. Venous blood gases are consistent with a metabolic alkalosis. His metabolic alkalosis is likely secondary to hypokalemia, and diuretic induced volume contraction. The patient is on propofol at 30 mcg/kg/min, saline at 20 cc an hour, and vital AF 1.2 at 40 with a goal of 50 cc an hour. After his potassium is corrected, the patient will have another attempt at weaning. White count is 6.7, hemoglobin 12.1, hematocrit 36.7, platelet count 140,000. Sodium 134, potassium 3.3, chlorides 105, CO2 27, BUN 14, creatinine 1.22. Glucose is 147. Calcium 8.1. Sputum sampling is negative for pending. Chest x-ray continues to show bilateral pleural effusions, and mild volume overload. Objective - Vital Signs Vital signs: Vital Signs Temp 98.1 F 10/30/23 08:00 Pulse 105 H 10/30/23 10:00 Resp 25 H 10/30/23 10:00 BP 101/63 10/29/23 09:00 Pulse Ox 98 10/30/23 10:00 FiO2 50 10/30/23 08:00 Intake & Output 10/29/23 10/30/23 10/30/23 18:59 06:59 18:59 Intake Total 841.198 872.396 334.397 Output Total 1355 1570 755 Balance -513.802 -697.604 -420.603 Weight 84.9 kg 83.4 kg Intake: IV 270 253 85 0.9 240 220 70 Sodium Chloride 0.9% 500 0 ml 500 ml @ 10 mls/hr IV .Q24H [facility] Rx#:[id number] pressure bag 30 33 15 Intake, IV Titration 301.198 179.396 49.397 Amount Potassium Chloride 20 meq 200 In Water For Injection 1 100ml.bag @ 50 mls/hr IVPB Q2H [facility] Rx#: [id number] propofoL 1,000 mg In 101.198 179.396 49.397 Empty Bag 1 bag @ 15 MCG/ KG/MIN 6.736 mls/hr IV . [id number] [facility] Rx#:[id number] Oral 100 Tube Feeding 170 350 200 Other 90 Output: Urine 1355 1570 755 Other: Voiding Method Indwelling Catheter Indwelling Catheter Indwelling Catheter ABP, PAP, CO, CI - Last Documented Arterial Blood Pressure 94/59 - Exam No acute distress, sedated, with an orally placed endotracheal tube. HEENT examination is grossly unremarkable. Neck supple. Full range of motion. No adenopathy thyromegaly or neck vein distention. Cardiovascular examination reveals regular rhythm rate. S1-S2 normal. No S3 or S4. No discernible murmur noted. Lungs reveal scattered rhonchi and crackles. No wheezes. Breath sounds equal. Saturations are 98%. Abdomen soft bowel sounds are heard. No masses or tenderness. Extremities are intact. No cyanosis clubbing or edema. Skin is without rash or lesion. Neurologic examination could not be adequately assessed at this time. - Labs CBC & Chem 7: 10/30/23 04:20 10/30/23 10:30 Labs: Abnormal Lab Results - Last 24 Hours (Table) 10/29/23 10/30/23 10/30/23 Range/Units 23:56 04:20 04:20 RBC 3.90 L (4.30-5.90) m/uL Hgb 12.1 L (13.0-17.5) gm/dL Hct 36.7 L (39.0-53.0) % RDW 15.9 H (11.5-15.5) % Plt Count 140 L (150-450) k/uL ABG pH (7.35-7.45) ABG HCO3 (21-25) mmol/L ABG Total CO2 (19-24) mmol/L ABG O2 Saturation (94-97) % Sodium 134 L (137-145) mmol/L Potassium 3.3 L (3.5-5.1) mmol/L Glucose 139 H (74-99) mg/dL POC Glucose (mg/dL) 112 H (70-110) mg/dL Calcium 8.1 L (8.4-10.2) mg/dL 10/30/23 10/30/23 Range/Units 05:00 06:17 RBC (4.30-5.90) m/uL Hgb (13.0-17.5) gm/dL Hct (39.0-53.0) % RDW (11.5-15.5) % Plt Count (150-450) k/uL ABG pH 7.50 H (7.35-7.45) ABG HCO3 29 H (21-25) mmol/L ABG Total CO2 30 H (19-24) mmol/L ABG O2 Saturation 97.4 H (94-97) % Sodium (137-145) mmol/L Potassium (3.5-5.1) mmol/L Glucose (74-99) mg/dL POC Glucose (mg/dL) 147 H (70-110) mg/dL Calcium (8.4-10.2) mg/dL Microbiology - Last 24 Hours (Table) 10/28/23 20:11 Gram Stain - Preliminary Sputum Assessment and Plan Assessment: Respiratory compromise/failure, secondary to Ativan administration, requiring intubation and mechanical ventilation, October 28, 2023. Left-sided pleural effusion. History of CVA. History of atrial fibrillation. Metabolic alkalosis, secondary to hypokalemia, and diuretic-induced volume contraction. Hypothyroidism. Gastroesophageal reflux disease. History of myocardial infarction. History of hypertension. History of ongoing tobacco use. History of chronic alcohol abuse. Plan: Plan dated October 28, 2023. After we saw the patient in the emergency department, the patient continued to receive Ativan, and apparently his respiratory status declined even further, and the patient required intubation and mechanical ventilation, which took place in the emergency department. I was notified of this, from my charge nurse Vilma. The patient will be excepted into the intensive care unit. Additional recommendations and suggestions are forthcoming. Labs, x-rays, medications are reviewed. Prognosis is guarded. Additional recommendations and suggestions are forthcoming, and the patient's overall prognosis remains guarded as mentioned above. Plan dated October 29, 2023. The patient will have a daily interruption of sedation, and a spontaneous breathing trial. The patient was placed on pressure support of 5, and CPAP of 5. In addition, because his TSH is still high, the patient will get Synthroid 100 mcg IV push, beginning today. Labs, x-rays, and all medications are reviewed. We will continue to follow the patient, make recommendations along the way. Yesterday, a left subclavian central line was placed, along with a right radial art line. Additional recommendations and suggestions are forthcoming. Prognosis is guarded. Plan dated October 30, 2023. The patient's potassium will be corrected. The patient will not get any more Lasix at this time. The patient will have another daily interruption of sedation, and spontaneous breathing trial. Labs, x-rays, and medications are all reviewed. Additional recommendations and suggestions are forthcoming. We will continue to follow the patient. The patient's overall prognosis remains guarded. He remains critically ill. He remains on GI and DVT prophylaxis. Time with Patient: Greater than 30
[2023-10-30 11:21] LABS: Glucose,Whole Blood 148 mg/dL (70-110)
--- NOTE | 2023-10-30 12:28 | P.PN ---
Subjective Progress Note Date: 10/30/23 Patient is a 73-year-old male who presented on 10/28/2023 with chest pain and weakness. He had a troponin of 0.061. EKG showed atrial fibrillation. While in the emergency department he received Ativan, became somnolent, and was subsequently intubated for airway protection and respiratory support. Past medical history significant for atrial fibrillation with controlled ventricular rate maintained on Eliquis, hypertension, cardiomyopathy, mitral regurgitation. Patient is intubated. He is currently in Afib with a HR in the 90-100s up to 120s and BP of 90s- 100s/60s. Potassium is 3.3 today, up from 2.6. Creatinine stable at 1.22 today. Not currently on cardizem. Unable to obtain ROS due to intubation and sedation. Objective - Vital Signs Vital signs: Vital Signs Temp 98.2 F 10/30/23 04:00 Pulse 102 H 10/30/23 07:24 Resp 19 10/30/23 07:00 BP 101/63 10/29/23 09:00 Pulse Ox 97 10/30/23 07:00 FiO2 50 10/30/23 07:21 Intake & Output 10/29/23 10/30/23 10/30/23 18:59 06:59 18:59 Intake Total 841.198 872.396 63 Output Total 1355 1570 75 Balance -513.802 -697.604 -12 Weight 84.9 kg 83.4 kg Intake: IV 270 253 23 0.9 240 220 20 Sodium Chloride 0.9% 500 0 ml 500 ml @ 20 mls/hr IV .Q24H [facility] Rx#:[id number] pressure bag 30 33 3 Intake, IV Titration 301.198 179.396 Amount Potassium Chloride 20 meq 200 In Water For Injection 1 100ml.bag @ 50 mls/hr IVPB Q2H [facility] Rx#: [id number] propofoL 1,000 mg In 101.198 179.396 Empty Bag 1 bag @ 15 MCG/ KG/MIN 6.736 mls/hr IV . [id number] [facility] Rx#:[id number] Oral 100 Tube Feeding 170 350 40 Other 90 Output: Urine 1355 1570 75 Other: Voiding Method Indwelling Catheter Indwelling Catheter ABP, PAP, CO, CI - Last Documented Arterial Blood Pressure 106/62 - Exam Vital signs reviewed. Currently in A-fib with controlled ventricular rate. General: Intubated. HEENT: Head exam is unremarkable. Lungs: Bilateral breath sounds present; occasional rhonchi; no wheezes or rales. Heart: Rate and rhythm are regular. S1S2 present. Abdomen: Soft, nondistended. Extremities: No edema present. - Labs CBC & Chem 7: 10/30/23 04:20 10/30/23 10:30 Labs: Abnormal Lab Results - Last 24 Hours (Table) 10/29/23 10/30/23 10/30/23 Range/Units 23:56 04:20 04:20 RBC 3.90 L (4.30-5.90) m/uL Hgb 12.1 L (13.0-17.5) gm/dL Hct 36.7 L (39.0-53.0) % RDW 15.9 H (11.5-15.5) % Plt Count 140 L (150-450) k/uL ABG pH (7.35-7.45) ABG HCO3 (21-25) mmol/L ABG Total CO2 (19-24) mmol/L ABG O2 Saturation (94-97) % Sodium 134 L (137-145) mmol/L Potassium 3.3 L (3.5-5.1) mmol/L Glucose 139 H (74-99) mg/dL POC Glucose (mg/dL) 112 H (70-110) mg/dL Calcium 8.1 L (8.4-10.2) mg/dL 10/30/23 10/30/23 Range/Units 05:00 06:17 RBC (4.30-5.90) m/uL Hgb (13.0-17.5) gm/dL Hct (39.0-53.0) % RDW (11.5-15.5) % Plt Count (150-450) k/uL ABG pH 7.50 H (7.35-7.45) ABG HCO3 29 H (21-25) mmol/L ABG Total CO2 30 H (19-24) mmol/L ABG O2 Saturation 97.4 H (94-97) % Sodium (137-145) mmol/L Potassium (3.5-5.1) mmol/L Glucose (74-99) mg/dL POC Glucose (mg/dL) 147 H (70-110) mg/dL Calcium (8.4-10.2) mg/dL Microbiology - Last 24 Hours (Table) 10/28/23 20:11 Gram Stain - Preliminary Sputum Assessment and Plan Assessment: 1. CHF, probably acute on chronic. 2D echo results pending. 2. Persistent A-fib with controlled ventricular rate. 3. Hypokalemia. Resolving. 4. Hypertension. 5. EtOH abuse. 6. History of myocardial infarction. 7. History of CVA/TIA. Plan: Start metoprolol tartrate 25 mg PO twice daily. Obtain 2D echo results. Continue Lasix. Continue Eliquis.
[2023-10-30 13:06] LABS: ABG Base Excess 6.8 mmol/L; ABG HCO3 30 mmol/L (21-25); ABG Oxygen Saturation 99.7 % (94-97); ABG PCO2 36 mmHg (35-45); ABG PH 7.52 (7.35-7.45); ABG PO2 123 mmHg (83-108); ABG TCO2 31 mmol/L (19-24)
--- NOTE | 2023-10-30 13:22 | CA ---
Transthoracic Echo Report Name: Kp Marina Age: 73 Gender: M : 1950 Exam Date: 10/29/2023 14:33 Exam Location: [facility] Ht (in): 67 Wt (lb): 187 Ordering Physician: Raquel Woodward MD Attending/Referring Phys: Brim Ironer Hand Vilma Hernandez RDCS Procedure CPT: Indications: LV function Cardiac Hx: Technical Quality: Fair Contrast 1: Total Dose (mL): Contrast 2: Total Dose (mL): MEASUREMENTS (Male / Female) Normal Values 2D ECHO LV Diastolic Diameter PLAX 5.8 cm 4.2 - 5.9 / 3.9 - 5.3 cm LV Systolic Diameter PLAX 5.2 cm IVS Diastolic Thickness 0.9 cm 0.6 - 1.0 / 0.6 - 0.9 cm LVPW Diastolic Thickness 1.0 cm 0.6 - 1.0 / 0.6 - 0.9 cm LV Relative Wall Thickness 0.3 LVOT Diameter 2.2 cm Aortic Root Diameter 2.8 cm Ascending Aorta Diameter 3.8 cm DOPPLER AV Peak Velocity 103.7 cm/s AV Peak Gradient 4.3 mmHg AV Mean Velocity 82.1 cm/s AV Mean Gradient 3.0 mmHg AV Velocity Time Integral 14.9 cm LVOT Peak Velocity 84.3 cm/s LVOT Peak Gradient 2.8 mmHg LVOT Velocity Time Integral 11.1 cm LVOT Stroke Volume 40.9 cm??? LVOT Stroke Volume Index 20.8 ml/m??? LVOT Cardiac Index 2221.5 cm???/min???m??? AV Area Cont Eq vti 2.7 cm??? AV Area Cont Eq pk 3.0 cm??? MV Peak Velocity 105.8 cm/s MV Peak Gradient 4.5 mmHg MV Mean Velocity 67.4 cm/s MV Mean Gradient 2.2 mmHg MV Velocity Time Integral 20.9 cm TR Peak Velocity 250.4 cm/s TR Peak Gradient 25.1 mmHg Right Atrial Pressure 20.0 mmHg Pulmonary Artery Systolic Pressu 45.1 mmHg Right Ventricular Systolic Press 45.1 mmHg PV Peak Velocity 57.5 cm/s PV Peak Gradient 1.3 mmHg FINDINGS Left Ventricle Left ventricular ejection fraction is estimated at 20 %. Severe left ventricular dilatation. Left ventricular wall thickness normal. Severe global hypokinesis. Right Ventricle Severe right ventricular dilatation with moderately reduced function. Moderate pulmonary hypertension. Right Atrium Severe right atrial dilatation. Left Atrium Severe left atrial dilatation. Mitral Valve Structurally normal mitral valve. No evidence for mitral valve prolapse. No mitral stenosis. Trace mitral regurgitation. Aortic Valve Trileaflet aortic valve. Aortic valve sclerosis. No aortic stenosis. No aortic regurgitation. Tricuspid Valve Structurally normal tricuspid valve. No tricuspid stenosis. Moderate tricuspid regurgitation. Pulmonic Valve Structurally normal pulmonic valve. No pulmonic stenosis. No pulmonic regurgitation. Pericardium No pericardial effusion. Left pleural effusion. Aorta Normal size aortic root and proximal ascending aorta. CONCLUSIONS Left ventricular ejection fraction 20% RVSP 45 Moderate to severely dilated left and radiation Trace mitral regurgitation Moderate tricuspid regurgitation Previewed by: Dr. Hal Vences DO (Electronically Signed) Final Date: 30 October 2023 13:16
--- NOTE | 2023-10-30 15:52 | P.PN ---
Subjective Progress Note Date: 10/30/23 I am following up with the patient and the patient was extubated today. New neurological issues. Objective - Vital Signs Vital signs: Vital Signs Temp 98.1 F 10/30/23 12:00 Pulse 104 H 10/30/23 15:14 Resp 24 10/30/23 14:00 BP 101/63 10/29/23 09:00 Pulse Ox 95 10/30/23 14:00 FiO2 50 10/30/23 12:00 Intake & Output 10/29/23 10/30/23 10/30/23 18:59 06:59 18:59 Intake Total 841.198 872.396 575.811 Output Total 1355 1570 1055 Balance -513.802 -697.604 -479.189 Weight 84.9 kg 83.4 kg Intake: IV 270 253 137 0.9 240 220 110 Sodium Chloride 0.9% 500 0 ml 500 ml @ 10 mls/hr IV .Q24H [facility] Rx#:[id number] pressure bag 30 33 27 Intake, IV Titration 301.198 179.396 78.811 Amount Potassium Chloride 20 meq 200 In Water For Injection 1 100ml.bag @ 50 mls/hr IVPB Q2H [facility] Rx#: [id number] propofoL 1,000 mg In 101.198 179.396 78.811 Empty Bag 1 bag @ 15 MCG/ KG/MIN 6.736 mls/hr IV . [id number] [facility] Rx#:[id number] Oral 100 Tube Feeding 170 350 360 Other 90 Output: Urine 1355 1570 1055 Other: Voiding Method Indwelling Catheter Indwelling Catheter Indwelling Catheter ABP, PAP, CO, CI - Last Documented Arterial Blood Pressure 118/78 - Exam General: Lying in bed and does not appear in acute distress. Neuro: Is drowsy but is awake both voice Is oriented to self and stated he is in the hospital. He is following few simple commands such as showing thumbs up and smiling. He is able left bilateral upper extremity above gravity and appears symmetrical. He was able to wiggle his toes Some of the other work-up consisted of : See with differential is unremarkable TSH is 19.0, free T4 is 1.32 ammonia Is less than Serum alcohol <10. Vitamin B12: 487 Serum Folate: 6.70 CT of the head is reported as no acute hemorrhage, hydrocephalus or mass effect I personally reviewed the CT and I agree there is no acute or subacute stroke. The patient has this seems old encephalomalacia over the right parietal/occpital. EEG is abnormal. The background slowing suggestive of moderate encephalopathy. There is no focal slowing, OptiForm discharge or seizure on the EEG. 2D echo is reported as left ventricular ejection fraction of 20%. Moderate to severe dilated left. Moderate tricuspid regurgitation - Labs CBC & Chem 7: 10/30/23 04:20 10/30/23 10:30 Labs: Abnormal Lab Results - Last 24 Hours (Table) 10/29/23 10/30/23 10/30/23 Range/Units 23:56 04:20 04:20 RBC 3.90 L (4.30-5.90) m/uL Hgb 12.1 L (13.0-17.5) gm/dL Hct 36.7 L (39.0-53.0) % RDW 15.9 H (11.5-15.5) % Plt Count 140 L (150-450) k/uL ABG pH (7.35-7.45) ABG pO2 (83-108) mmHg ABG HCO3 (21-25) mmol/L ABG Total CO2 (19-24) mmol/L ABG O2 Saturation (94-97) % Sodium 134 L (137-145) mmol/L Potassium 3.3 L (3.5-5.1) mmol/L Glucose 139 H (74-99) mg/dL POC Glucose (mg/dL) 112 H (70-110) mg/dL Calcium 8.1 L (8.4-10.2) mg/dL 10/30/23 10/30/23 10/30/23 Range/Units 05:00 06:17 11:20 RBC (4.30-5.90) m/uL Hgb (13.0-17.5) gm/dL Hct (39.0-53.0) % RDW (11.5-15.5) % Plt Count (150-450) k/uL ABG pH 7.50 H (7.35-7.45) ABG pO2 (83-108) mmHg ABG HCO3 29 H (21-25) mmol/L ABG Total CO2 30 H (19-24) mmol/L ABG O2 Saturation 97.4 H (94-97) % Sodium (137-145) mmol/L Potassium (3.5-5.1) mmol/L Glucose (74-99) mg/dL POC Glucose (mg/dL) 147 H 148 H (70-110) mg/dL Calcium (8.4-10.2) mg/dL 10/30/23 Range/Units 13:00 RBC (4.30-5.90) m/uL Hgb (13.0-17.5) gm/dL Hct (39.0-53.0) % RDW (11.5-15.5) % Plt Count (150-450) k/uL ABG pH 7.52 H (7.35-7.45) ABG pO2 123 H (83-108) mmHg ABG HCO3 30 H (21-25) mmol/L ABG Total CO2 31 H (19-24) mmol/L ABG O2 Saturation 99.7 H (94-97) % Sodium (137-145) mmol/L Potassium (3.5-5.1) mmol/L Glucose (74-99) mg/dL POC Glucose (mg/dL) (70-110) mg/dL Calcium (8.4-10.2) mg/dL Microbiology - Last 24 Hours (Table) 10/28/23 20:11 Gram Stain - Preliminary Sputum Sputum Culture - Preliminary Presumptive Staph aureus Assessment and Plan Assessment: This is a 73-year-old gentleman who presented emergency department because of multiple complaints including chest pain, weakness and neurologist consult for altered mental status. This seems to the patient is heavy alcohol use and chest x-ray shows large pleural effusion left. Pulse ox was 86 L on 6 L of oxygen. Altered Mental status is due to hypoxic encephalopathy as well as metabolic encephalopathy. CT head is negative for any acute or subacute stroke--mentation is improving. EEG is moderate encephalopathy but no seizure or discharges. Large left pleural effusion Hypoxia Elevated Troponin Systolic heart failure with EF 20% Low normal folate (6.70) History of stroke History of atrial fibrillation patient is supposed to be on Eliquis Heavy alcohol use Plan: Continue thiamine 100 mg daily Continue folic acid 1mg Will defer the rest of the medical management to primary and other specialist. There is no further neurological workup. Will sign off. Please reconsult if needed peer Time with Patient: Less than 30
[2023-10-30 18:10] LABS: Glucose,Whole Blood 128 mg/dL (70-110)
[2023-10-31] MEDS: METOPROLOL TARTRATE 25 MG TAB PO SCH (00:35)
[2023-10-31] MEDS: LORazepam 2 MG/ML INJ IV PRN (00:35)
[2023-10-31 04:08] LABS: Basophils % (A) 0 %; Eosinophils # (A) 0.1 k/uL (0-0.7); Eosinophils % (A) 1 %; HGB 12.2 gm/dL (13.0-17.5); Hypochromasia Moderate; Lymphocytes % (A) 13 %; MCH 30.4 pg (25.0-35.0); MCHC 32.2 g/dL (31.0-37.0); MCV 94.4 fL (80.0-100.0); Mean Platelet Volume 9.7; Monocytes # (A) 0.5 k/uL (0-1.0); Monocytes % (A) 6 %; Neutrophils # (A) 6.1 k/uL (1.3-7.7); Neutrophils % (A) 80 %; Platelet Count 144 k/uL (150-450); RBC 4.03 m/uL (4.30-5.90); RDW 15.9 % (11.5-15.5); WBC 7.7 k/uL (3.8-10.6)
[2023-10-31 04:17] LABS: African American GFR (CKD) 61 (>60 ml/min/1.73 sqM); Anion Gap 6 mmol/L; Blood Urea Nitrogen 17 mg/dL (9-20); Calcium 8.6 mg/dL (8.4-10.2); Carbon Dioxide 29 mmol/L (22-30); Chloride 104 mmol/L (98-107); Glucose 103 mg/dL (74-99); Non-African American GFR(CKD) 52 (>60 ml/min/1.73 sqM); Potassium 4.1 mmol/L (3.5-5.1); Sodium 139 mmol/L (137-145)
--- NOTE | 2023-10-31 07:08 | P.PN ---
Subjective Progress Note Date: 10/30/23 This is a 73-year-old male who presented to the emergency department via EMS with reports from the emergency department that patient was altered and debilitated in his living situation at home is very unkempt including multiple animals who appear malnourished and on care for as well. Unsure of last primary care provider and any compliance to follow-up in the outpatient setting. Per medical record patient does have a history of atrial fibrillation with documented medication refills by slicing machine operator/tender Dr. Moralez earlier this year, history of CVA/TIA, GERD, hypertension, previous myocardial infarction, former smoker and significant daily EtOH use. Patient was admitted initially to [facility] for altered mental status with acute NSTEMI and weakness with debility, possible alcohol withdrawal and atrial fibrillation uncontrolled with RVR. EKG showed atrial fibrillation with RVR and heart rate was 105, brain CT was performed showing no acute hemorrhage hydrocephalus or mass effect. Chest x-ray showed severe left pleural effusion with cardiomegaly. Patient was started on CIWA protocol and also 2 to 3 L via nasal cannula. Patient did undergo CT angio of the chest with no evidence of PE within the pulmonary outflow tract or immediate proximal branches, significant sequela of volume overload with mesenteric ascites and pleural effusions with cirrhotic morphology of the liver and cardiomegaly. Chest ultrasound was performed and left side was marked for possible thoracentesis. The left pleural effusion pocket size is 9.1 cm. Labs reviewed and patient had a normal white count of 5.2, hemoglobin was 13.6, platelets 176, INR 1.3, ABG showed a low pH of 7.28 O2 saturation was 95%. Sodium was 141 with a potassium of 3.9, BUN 16, creatinine mildly elevated at 1.43. Initial lactic acid was 2.1 and repeat remained the same and patient did receive a liter of fluids while in the ER and was continued on normal saline at a rate of 130 mL/h. Later patient did have a BNP drawn which significantly elevated at 22,700. TSH also found to be abnormal at 19 although free T4 was normal at 1.32. Albumin was 3.4. Urinalysis was done and negative and serum alcohol was noted to be less than 10. Troponins were also mildly elevated at 0.061 and trending up. Patient noted to be restless per nursing staff in the ER and was given an additional dose of Valium along with Ativan and then became obtunded and nonresponsive and ultimately required mechanical ventilation to protect airway. Patient is now admitted to the ICU and is being started on Lasix. Cardizem was initiated as well and patient has since converted and Cardizem has been placed on hold. Cardiac/pulmonary have been consulted. Pierre rocha is currently intubated with an FiO2 of 100% and PEEP of 5 maintaining oxygen saturations above 90%. 10/29/2023 Patient seen in follow-up in the ICU continues on mechanical patient continues in the ICU on mechanical ventilation, FiO2 is 50% with PEEP of 5. Patient remains on propofol with multiple consultations following. Patient not requiring pressor support and is maintained on IV Lasix and diuresing. Patient with wounds to bilateral lower extremities with wound care on consult. Overall prognosis is guarded at this time. 10/30/2023 Patient is seen in follow-up today continues to be in the ICU on mechanical ventilation with an FiO2 of 50% and PEEP is 5. Patient did undergo sedation weaning trial although not tolerating and will be continued on sedation. Patient becomes tacky and restless and thrashing during the sedation weaning. Sputum culture preliminary showing presumptive staph and patient is maintained on antibiotics. Continue local wound care and frequent offloading to the buttock area. Patient potassium 3.3 and will be replaced per protocol today. Patient continues with a large left pleural effusion and was maintained on IV Lasix which has been discontinued. Patient is making adequate urine per nursing staff and continues with indwelling Yeung catheter. REVIEW OF SYSTEMS: Unable to completely assess as patient is intubated maintained on propofol PHYSICAL EXAMINATION: GENERAL: The patient is alert and oriented x0 currently sedated on propofol on mechanical ventilation with an FiO2 of 50 % and PEEP is 5, Well developed, pale, elderly appearing, ill-appearing HEENT: Pupils are round and equally reacting to light. EOMI. No scleral icterus. No conjunctival pallor. Normocephalic, atraumatic. No pharyngeal erythema. No thyromegaly. CARDIOVASCULAR: S1 and S2 muffled and irregular, currently sinus on the monitor with heart rates in the 60s on exam PULMONARY: Chest is diminished with crackles noted at the bases, no wheezing or accessory muscle use noted. Severely diminished on the left ABDOMEN: Soft, obese nontender, nondistended, normoactive bowel sounds. No palpable organomegaly. MUSCULOSKELETAL: No joint swelling or deformity. EXTREMITIES: No cyanosis, clubbing, or pedal edema. NEUROLOGICAL: Unable to completely assess as patient is on mechanical ventilation intubated. SKIN: No rashes. Less pale Assessment: Acute altered mental status, likely metabolic encephalopathy secondary to acute alcohol withdrawal, EtOH level was less than 10 the patient drinks heavily daily per medical record Acute hypoxic respiratory failure with respiratory compromise possibly secondary to multiple doses of Ativan and Valium requiring mechanical ventilation to protect the airway 10/28/2023 Hypokalemia, potassium 3.3 and being replaced per protocol Congestive heart failure, acute exacerbation, likely acute on chronic, unknown EF, 2D echo is ordered and pending Large left pleural effusion with a BNP of 22,000 Lactic acidosis likely secondary to above Elevated troponin, unsure of NSTEMI, possibly type II mismatch History of atrial fibrillation, currently atrial fibrillation with rapid ventricular rate started on Cardizem History of CVA/TIA with no residual effects in 2006 History of myocardial infarction in 2019 History of GERD History of hypertension Stage II pressure ulcer of the left buttock, present on admission Unstageable pressure ulcer of the right buttock, present on admission Former smoker Heavy daily alcohol use and drinks about a pint of rum per day Poor social support and poor living situation Noncompliance to medication and follow-up GI prophylaxis DVT prophylaxis Full code Plan: Patient was initially admitted with altered mental status and extremely poor living conditions per ER documentation for possible PT/OT therapy evaluation and social work also admitted for likely acute alcohol withdrawal Patient was placed on CIWA protocol and also given large doses of Ativan as well as Valium IV and became unresponsive and obtunded and an a team was called while in the ER hold due to respiratory compromise and patient was ultimately intubated and remains in the ICU Attempted sedation holidays yesterday although unsuccessful in attempting weaning trials again today. Patient becomes tacky and restless and thrashes about per nursing staff Patient with significant volume overload and was given a liter bolus in the ER along with maintained on large dose IV fluid hydration and became more obtunded and respiratory distress requiring mechanical ventilation. BNP was noted to be 22,000. Patient remains on mechanical ventilation weaning as tolerated and FiO2 is 50% with a PEEP of 5. No further IV Lasix per pulmonary. Multiple consultations following undergoing neurological workup as well. Patient noted to have pressure ulcers and wound care following, continue local wound care and offloading with frequent position changes every 2 hours Cardiology and pulmonary circus laborer following as patient remains in the ICU Overall prognosis is guarded at this time Case management/social work on consult regarding social issues and living situations. The impression and plan of care has been dictated by Linda Diop, Nurse Practitioner as directed. Dr. Anastacio MD I have performed a history and examination and MDM of this patient, discussed the same with the dictator, and agree with the dictator's assessment and plan as written ,documented as a scribe. Based on total visit time, I have performed more than 50% of the visit. Objective - Vital Signs Vital signs: Vital Signs Temp 98.1 F 10/30/23 08:00 Pulse 116 H 10/30/23 08:00 Resp 32 H 10/30/23 08:00 BP 101/63 10/29/23 09:00 Pulse Ox 98 10/30/23 08:00 FiO2 50 10/30/23 08:00 Intake & Output 10/29/23 10/30/23 10/30/23 18:59 06:59 18:59 Intake Total 841.198 872.396 126 Output Total 1355 1570 105 Balance -513.802 -697.604 21 Weight 84.9 kg 83.4 kg Intake: IV 270 253 46 0.9 240 220 40 Sodium Chloride 0.9% 500 0 ml 500 ml @ 20 mls/hr IV .Q24H [facility] Rx#:[id number] pressure bag 30 33 6 Intake, IV Titration 301.198 179.396 Amount Potassium Chloride 20 meq 200 In Water For Injection 1 100ml.bag @ 50 mls/hr IVPB Q2H [facility] Rx#: [id number] propofoL 1,000 mg In 101.198 179.396 Empty Bag 1 bag @ 15 MCG/ KG/MIN 6.736 mls/hr IV . [id number] [facility] Rx#:[id number] Oral 100 Tube Feeding 170 350 80 Other 90 Output: Urine 1355 1570 105 Other: Voiding Method Indwelling Catheter Indwelling Catheter Indwelling Catheter ABP, PAP, CO, CI - Last Documented Arterial Blood Pressure 105/64 - Labs CBC & Chem 7: 10/31/23 03:55 10/31/23 03:55 Labs: Abnormal Lab Results - Last 24 Hours (Table) 0810/30/23 10/30/23 Range/Units 23:56 04:20 04:20 RBC 3.90 L (4.30-5.90) m/uL Hgb 12.1 L (13.0-17.5) gm/dL Hct 36.7 L (39.0-53.0) % RDW 15.9 H (11.5-15.5) % Plt Count 140 L (150-450) k/uL ABG pH (7.35-7.45) ABG HCO3 (21-25) mmol/L ABG Total CO2 (19-24) mmol/L ABG O2 Saturation (94-97) % Sodium 134 L (137-145) mmol/L Potassium 3.3 L (3.5-5.1) mmol/L Glucose 139 H (74-99) mg/dL POC Glucose (mg/dL) 112 H (70-110) mg/dL Calcium 8.1 L (8.4-10.2) mg/dL 10/30/23 10/30/23 Range/Units 05:00 06:17 RBC (4.30-5.90) m/uL Hgb (13.0-17.5) gm/dL Hct (39.0-53.0) % RDW (11.5-15.5) % Plt Count (150-450) k/uL ABG pH 7.50 H (7.35-7.45) ABG HCO3 29 H (21-25) mmol/L ABG Total CO2 30 H (19-24) mmol/L ABG O2 Saturation 97.4 H (94-97) % Sodium (137-145) mmol/L Potassium (3.5-5.1) mmol/L Glucose (74-99) mg/dL POC Glucose (mg/dL) 147 H (70-110) mg/dL Calcium (8.4-10.2) mg/dL Microbiology - Last 24 Hours (Table) 10/28/23 20:11 Gram Stain - Preliminary Sputum
[2023-10-31] MEDS: IPRATROPIUM-ALBUTEROL 3 ML NEB INHALATION SCH (08:01)
--- NOTE | 2023-10-31 09:34 | XR ---
EXAMINATION TYPE: XR chest 1V portable DATE OF EXAM: 10/31/2023 5:20 AM CLINICAL INDICATION: Male, 73 years old with history of Tube placement; [facility] COMPARISON: Chest radiographs from 10/30/2023 TECHNIQUE: XR chest 1V portable Frontal view of the chest. FINDINGS: Lungs/Pleura: No evidence of focal consolidation or pneumothorax. Similar blunting of the costophreni c angle compatible with layering pleural effusions. pulmonary vascularity: Pulmonary vascular congestion. Heart/mediastinum: Cardiomediastinal silhouette is unremarkable. Musculoskeletal: No acute osseous pathology. Other findings: None Lines/Tubes: Interval removal of the endotracheal tube. Interval removal of the enteric tube, Left internal jugular central venous catheter with distal tip at the cavoatrial junction. IMPRESSION: 1. Removal of endotracheal nasogastric tubes remains suspected layering bilateral pleural effusions. 2. Pulmonary vasculature congestion.
[2023-10-31] MEDS: LOSARTAN 25 MG TAB PO SCH (10:53)
--- NOTE | 2023-10-31 11:01 | P.PN ---
Subjective Progress Note Date: 10/31/23 Patient is a 73-year-old male who presented on 10/28/2023 with chest pain and weakness. He had troponins 0.058, 0.059, 0.061 initially. EKG showed atrial fibrillation. While in the emergency department he received Ativan, became somnolent, and was subsequently intubated for airway protection and respiratory support. Past medical history significant for atrial fibrillation with controlled ventricular rate maintained on Eliquis, hypertension, cardiomyopathy, mitral regurgitation. Patient was successfully extubated yesterday. Patient able to respond to yes/no questions but not able to vocalize. He is currently in Afib with a HR in the 90-100s up to 120s and BP of 90s- 100s/60s. Not currently on Cardizem. Echo revealed LV EF 20%, severe biatrial dilatation, trace mitral regurgitation, and moderate tricuspid regurgitation. ROS performed. Pertinent positives and negatives discussed above, a complete review of systems was performed and all the other systems were negative. Objective - Vital Signs Vital signs: Vital Signs Temp 98.6 F 10/31/23 04:00 Pulse 103 H 10/31/23 06:00 Resp 31 H 10/31/23 06:00 BP 101/63 10/29/23 09:00 Pulse Ox 95 10/31/23 06:00 FiO2 50 10/30/23 12:00 Intake & Output 10/30/23 10/30/23 10/31/23 06:59 18:59 06:59 Intake Total 872.396 754.811 21 Output Total 1570 1245 450 Balance -697.604 -490.189 -429 Weight 83.4 kg 89.1 kg Intake: IV 253 176 21 0.9 220 140 pressure bag 33 36 21 Intake, IV Titration 179.396 78.811 Amount propofoL 1,000 mg In 179.396 78.811 Empty Bag 1 bag @ 15 MCG/ KG/MIN 6.736 mls/hr IV . [id number] [facility] Rx#:[id number] Tube Feeding 350 500 Other 90 Output: Urine 1570 1245 450 Other: Voiding Method Indwelling Catheter Indwelling Catheter Indwelling Catheter ABP, PAP, CO, CI - Last Documented Arterial Blood Pressure 92/51 - Exam Vital signs reviewed. Currently in A-fib with controlled ventricular rate. General: No acute distress. HEENT: Head exam is unremarkable. Lungs: Bilateral breath sounds present; occasional rhonchi; no wheezes or rales. Heart: Rate and rhythm are regular. S1S2 present. Abdomen: Soft, nondistended. Extremities: No edema present. - Labs CBC & Chem 7: 10/31/23 03:55 10/31/23 03:55 Labs: Abnormal Lab Results - Last 24 Hours (Table) 10/30/23 10/30/23 10/30/23 Range/Units 11:20 13:00 18:09 RBC (4.30-5.90) m/uL Hgb (13.0-17.5) gm/dL Hct (39.0-53.0) % RDW (11.5-15.5) % Plt Count (150-450) k/uL ABG pH 7.52 H (7.35-7.45) ABG pO2 123 H (83-108) mmHg ABG HCO3 30 H (21-25) mmol/L ABG Total CO2 31 H (19-24) mmol/L ABG O2 Saturation 99.7 H (94-97) % Creatinine (0.66-1.25) mg/dL Glucose (74-99) mg/dL POC Glucose (mg/dL) 148 H 128 H (70-110) mg/dL 10/31/23 10/31/23 Range/Units 03:55 03:55 RBC 4.03 L (4.30-5.90) m/uL Hgb 12.2 L (13.0-17.5) gm/dL Hct 38.0 L (39.0-53.0) % RDW 15.9 H (11.5-15.5) % Plt Count 144 L (150-450) k/uL ABG pH (7.35-7.45) ABG pO2 (83-108) mmHg ABG HCO3 (21-25) mmol/L ABG Total CO2 (19-24) mmol/L ABG O2 Saturation (94-97) % Creatinine 1.35 H (0.66-1.25) mg/dL Glucose 103 H (74-99) mg/dL POC Glucose (mg/dL) (70-110) mg/dL Microbiology - Last 24 Hours (Table) 10/28/23 20:11 Gram Stain - Preliminary Sputum Sputum Culture - Preliminary Presumptive Staph aureus Assessment and Plan Assessment: 1. HFrEF, acute on chronic; LV EF 20% per echo 10/29/2023 - significant decrease from 02/03/2020. 2. Persistent A-fib with controlled ventricular rate. Maintained on Eliquis. Cardizem currently held. 3. Encephalopathy, metabolic. 4. History of hypertension. 5. EtOH abuse. 6. History of CVA/TIA. 7. History of myocardial infarction. Plan: Start losartan 25 mg PO daily. Continue metoprolol tartrate 25 mg PO twice daily. Continue Lasix. Continue Eliquis.
--- NOTE | 2023-10-31 11:26 | P.PN ---
Subjective Progress Note Date: 10/31/23 Principal diagnosis: Respiratory failure. Pulmonary consult dated October 28, 2023. This is a 73-year-old male who presented to the emergency department, on October 27, shortly after 12 AM. The patient came in with multiple complaints including chest pain, and weakness. Apparently, the patient has been living in squalid conditions at home, and was unable to take care of his animals, including a dog and a cat, and his living condition apparently has been significant for him. He apparently has not gotten out of bed for 3 to 4 days, according to the ER shreya. We were asked to see the patient because of pleural effusion. We saw the patient down in the emergency department, room #8. The patient was very lethargic and somnolent, having received Ativan recently, because of concerns of alcohol withdrawal syndrome. The patient was on O2 at 3 L. He was found to have a left-sided pleural effusion, and atrial fibrillation, he was placed on Cardizem at 5 mg an hour. The patient apparently has a history of CVA, atrial fibrillation, gastroesophageal reflux disease, myocardial infarction, hypertension, and is a smoker, and drinks heavily. Current labs include a white count 5.2, hemoglobin 13.6, hematocrit 42.3, and a normal platelet count. PT was 13.3 with an INR of 1.3. Blood gases showed a pO2 of 87, pCO2 of 45, and a pH of 7.28. Sodium 141, potassium 3.9, chlorides 106, CO2 25, anion gap 10, BUN 16, creatinine 1.43. The patient's troponin was 0.061. N-terminal proBNP was 22,700. The patient's TSH was 19. Albumin was 3.4. Urine showed trace protein, trace blood, rare sediment. Serum alcohol was less than 10. Brain CT showed nothing acute. Initial chest x-ray showed a large left pleural effusion. CT angiogram was negative for pulmonary embolism, and showed primarily volume overload, with ascites, and pleural effusion. CT of the abdomen showed moderate left renal hydronephrosis, volume overload, and a cirrhotic liver among other things. Ultrasound of the left chest reveals a 9.1 cm pocket of fluid on the left side, with nothing on the right side. The patient continued to receive Ativan in the emergency department, and became so somnolent, he essentially had near respiratory arrest, and was electively intubated, for airway protection and respiratory support. His post intubation chest x-ray showed a properly placed endotracheal tube. Progress note dated October 29, 2023. The patient is seen today in room 252. He remains on the mechanical ventilator. He was intubated yesterday, for impending respiratory failure, lethargy, and somnolence. Current ventilator settings include volume assist-control, rate 16, tidal volume 450, FiO2 50%, and PEEP of 5. Blood gases show pO2 71, pCO2 of 34, and a pH of 7.47. Currently, the patient is on saline at 10 cc an hour and propofol at 20 mcg/kg/min. He had an uneventful night according to the nurses. White count 6.2, hemoglobin 12.4, hematocrit 38.6, platelet count 138,000. Sodi um 140, potassium 2.6, chlorides 109, CO2 22, anion gap 9, BUN 14, creatinine 1.22. Glucose 101. Calcium 8.3. Albumin 2.6. Chest x-ray suggest fluid overload/CHF, and a large left-sided pleural effusion. Progress note dated October 30, 2023. The patient is seen today again in room 252. He remains on the mechanical ventilator. The patient did have a daily interruption of sedation yesterday, with an attempted spontaneous breathing trial, but he did poorly. He remains on volume assist-control, rate 16, tidal volume 450, FiO2 50%, PEEP of 5. Blood gases show pO2 of 83, pCO2 of 38, pH of 7.50. Venous blood gases are consistent with a metabolic alkalosis. His metabolic alkalosis is likely secondary to hypokalemia, and diuretic induced volume contraction. The patient is on propofol at 30 mcg/kg/min, saline at 20 cc an hour, and vital AF 1.2 at 40 with a goal of 50 cc an hour. After his potassium is corrected, the patient will have another attempt at weaning. White count is 6.7, hemoglobin 12.1, hematocrit 36.7, platelet count 140,000. Sodium 134, potassium 3.3, chlorides 105, CO2 27, BUN 14, creatinine 1.22. Glucose is 147. Calcium 8.1. Sputum sampling is negative for pending. Chest x-ray continues to show bilateral pleural effusions, and mild volume overload. Progress note dated October 31, 2023. The patient is seen today in room 252. The patient was extubated successfully yesterday, October 29. Currently, he is on 6 L of oxygen. He is getting saline at 10 cc an hour. He still a bit lethargic. Other than that, he had an uneventful night according to the nurses. Current laboratory data includes a white count 7.7, hemoglobin 12.2, hematocrit 38, and a platelet count of 144,000. Sodium 139, potassium 4.1, chlorides 104, CO2 29, BUN 17, creatinine 1.35. Glucose 103. Calcium is 8.6. Procalcitonin level 0.42. Sputum from October 27, shows evidence of Staphylococcus aureus. Chest x-ray shows opacification, in both lungs, left greater than right. There appears to be a left-sided pleural effusion. There may be a small effusion on the right. Objective - Vital Signs Vital signs: Vital Signs Temp 97.6 F 10/31/23 08:00 Pulse 84 10/31/23 11:07 Resp 19 10/31/23 10:00 BP 101/63 10/29/23 09:00 Pulse Ox 95 10/31/23 10:00 FiO2 50 10/30/23 12:00 Intake & Output 10/30/23 10/31/23 10/31/23 18:59 06:59 18:59 Intake Total 754.811 33 29 Output Total 1245 750 135 Balance -490.189 -717 -106 Weight 89.1 kg 89.1 kg Intake: IV 176 33 29 0.9 140 20 pressure bag 36 33 9 Intake, IV Titration 78.811 Amount propofoL 1,000 mg In 78.811 Empty Bag 1 bag @ 15 MCG/ KG/MIN 6.736 mls/hr IV . [id number] [facility] Rx#:[id number] Tube Feeding 500 Output: Urine 1245 750 135 Other: Voiding Method Indwelling Catheter Indwelling Catheter ABP, PAP, CO, CI - Last Documented Arterial Blood Pressure 108/62 - Exam No acute distress, extubated, currently on 6 L nasal cannula. HEENT examination is grossly unremarkable. Neck supple. Full range of motion. No adenopathy thyromegaly or neck vein distention. Cardiovascular examination reveals regular rhythm rate. S1-S2 normal. No S3 or S4. No discernible murmur noted. Lungs reveal scattered rhonchi and crackles. No wheezes. Breath sounds equal. Saturations are 95 %. Abdomen soft bowel sounds are heard. No masses or tenderness. Extremities are intact. No cyanosis clubbing or edema. Skin is without rash or lesion. Neurologic examination is brief, but nonfocal. - Labs CBC & Chem 7: 10/31/23 03:55 10/31/23 03:55 Labs: Abnormal Lab Results - Last 24 Hours (Table) 10/30/23 10/30/23 10/30/23 Range/Units 11:20 13:00 18:09 RBC (4.30-5.90) m/uL Hgb (13.0-17.5) gm/dL Hct (39.0-53.0) % RDW (11.5-15.5) % Plt Count (150-450) k/uL ABG pH 7.52 H (7.35-7.45) ABG pO2 123 H (83-108) mmHg ABG HCO3 30 H (21-25) mmol/L ABG Total CO2 31 H (19-24) mmol/L ABG O2 Saturation 99.7 H (94-97) % Creatinine (0.66-1.25) mg/dL Glucose (74-99) mg/dL POC Glucose (mg/dL) 148 H 128 H (70-110) mg/dL 10/31/23 10/31/23 Range/Units 03:55 03:55 RBC 4.03 L (4.30-5.90) m/uL Hgb 12.2 L (13.0-17.5) gm/dL Hct 38.0 L (39.0-53.0) % RDW 15.9 H (11.5-15.5) % Plt Count 144 L (150-450) k/uL ABG pH (7.35-7.45) ABG pO2 (83-108) mmHg ABG HCO3 (21-25) mmol/L ABG Total CO2 (19-24) mmol/L ABG O2 Saturation (94-97) % Creatinine 1.35 H (0.66-1.25) mg/dL Glucose 103 H (74-99) mg/dL POC Glucose (mg/dL) (70-110) mg/dL Microbiology - Last 24 Hours (Table) 10/28/23 20:11 Gram Stain - Final Sputum Sputum Culture - Final Staphylococcus aureus Assessment and Plan Assessment: Respiratory compromise/failure, secondary to Ativan administration, requiring in tubation and mechanical ventilation, October 28, 2023. S/P extubation, on October 30, 2023. Left-sided pleural effusion. History of CVA. History of atrial fibrillation. Metabolic alkalosis, secondary to hypokalemia, and diuretic-induced volume contraction. Hypothyroidism. Gastroesophageal reflux disease. History of myocardial infarction. History of hypertension. History of ongoing tobacco use. History of chronic alcohol abuse. Plan: Plan dated October 28, 2023. After we saw the patient in the emergency department, the patient continued to receive Ativan, and apparently his respiratory status declined even further, and the patient required intubation and mechanical ventilation, which took place in the emergency department. I was notified of this, from my charge nurse Vilma. The patient will be excepted into the intensive care unit. Additional recommendations and suggestions are forthcoming. Labs, x-rays, medications are reviewed. Prognosis is guarded. Additional recommendations and suggestions are forthcoming, and the patient's overall prognosis remains guarded as mentioned above. Plan dated October 29, 2023. The patient will have a daily interruption of sedation, and a spontaneous breathing trial. The patient was placed on pressure support of 5, and CPAP of 5. In addition, because his TSH is still high, the patient will get Synthroid 100 mcg IV push, beginning today. Labs, x-rays, and all medications are reviewed. We will continue to follow the patient, make recommendations along the way. Yesterday, a left subclavian central line was placed, along with a right radial art line. Additional recommendations and suggestions are forthcoming. Prognosis is guarded. Plan dated October 30, 2023. The patient's potassium will be corrected. The patient will not get any more Lasix at this time. The patient will have another daily interruption of sedation, and spontaneous breathing trial. Labs, x-rays, and medications are all reviewed. Additional recommendations and suggestions are forthcoming. We will continue to follow the patient. The patient's overall prognosis remains guarded. He remains critically ill. He remains on GI and DVT prophylaxis. Plan dated October 31, 2023. The patient is seen today in room 252. The patient was extubated yesterday. He continues on oxygen at 6 L. He is getting saline at 10 cc an hour. Labs, x- rays, and medications are reviewed. The sputum from the is showing evidence of Staphylococcus aureus. Unfortunately, I cannot open, to see the sensitivities, and whether or not this is a oxacillin sensitive or oxacillin resistant staph. The patient will stay in the ICU for now. No additional recommendations are made. He is a heavy drinker. Drinks quite a bit of rum every day with Coke. The patient's overall prognosis remains guarded. The patient is not ready to be discharged out of the intensive care unit. His situation is still critical. Time with Patient: Greater than 30
[2023-10-31 12:34] LABS: Glucose,Whole Blood 94 mg/dL (70-110)
--- NOTE | 2023-10-31 16:10 | P.PN ---
Subjective Progress Note Date: 10/31/23 73-year-old male who presented to the emergency department via EMS with reports from the emergency department that patient was altered and debilitated in his living situation at home is very unkempt including multiple animals who appear malnourished and on care for as well. Unsure of last primary care provider and any compliance to follow-up in the outpatient setting. 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 Moralez earlier this year, history of CVA/TIA, GERD, hypertension, previous myocardial infarction, former smoker and significant daily EtOH use. Patient was admitted initially to [facility] for altered mental status with acute NSTEMI and weakness with debility, possible alcohol withdrawal and atrial fibrillation uncontrolled with RVR. EKG showed atrial fibrillation with RVR and heart rate was 105, brain CT was performed showing no acute hemorrhage hydrocephalus or mass effect. Chest x-ray showed severe left pleural effusion with cardiomegaly. Patient was started on CIWA protocol and also 2 to 3 L via nasal cannula. Patient did undergo CT angio of the chest with no evidence of PE within the pulmonary outflow tract or immediate proximal branches, significant sequela of volume overload with mesenteric ascites and pleural effusions with cirrhotic morphology of the liver and cardiomegaly. Chest ultrasound was performed and left side was marked for possible thoracentesis. The left pleural effusion pocket size is 9.1 cm. Labs reviewed and patient had a normal white count of 5.2, hemoglobin was 13.6, platelets 176, INR 1.3, ABG showed a low pH of 7.28 O2 saturation was 95%. Sodium was 141 with a potassium of 3.9, BUN 16, creatinine mildly elevated at 1.43. Initial lactic acid was 2.1 and repeat remained the same and patient did receive a liter of fluids while in the ER and was continued on normal saline at a rate of 130 mL/h. Later patient did have a BNP drawn which significantly elevated at 22,700. TSH also found to be abnormal at 19 although free T4 was normal at 1.32. Albumin was 3.4. Urinalysis was done and negative and serum alcohol was noted to be less than 10. Troponins were also mildly elevated at 0.061 and trending up. Patient noted to be restless per nursing staff in the ER and was given an additional dose of Valium along with Ativan and then became obtunded and non responsive and ultimately required mechanical ventilation to protect airway. Patient is now admitted to the ICU and is being started on Lasix. Cardizem was initiated as well and patient has since converted and Cardizem has been placed on hold. Cardiac/pulmonary have been consulted. Patient is currently intubated with an FiO2 of 100% and PEEP of 5 maintaining oxygen saturations above 90%. ----Patient was successfully extubated yesterday. Patient able to respond to yes/no questions but not able to vocalize. He is currently in Afib with a HR in the 90-100s up to 120s and BP of 90s-100s/60s. Not currently on Cardizem. Echo revealed LV EF 20%, severe biatrial dilatation, trace mitral regurgitation, and moderate tricuspid regurgitation. Current laboratory data includes a white count 7.7, hemoglobin 12.2, hematocrit 38, and a platelet count of 144,000. Sodium 139, potassium 4.1, chlorides 104, CO2 29, BUN 17, creatinine 1.35. Glucose 103. Calcium is 8.6. Procalcitonin level 0.42. Sputum from October 27, shows evidence of Staphylococcus aureus. Chest x-ray shows opacification, in both lungs, left greater than right. There appears to be a left-sided pleural effusion. Objective - Vital Signs Vital signs: Vital Signs Temp 97.6 F 10/31/23 08:00 Pulse 89 10/31/23 11:22 Resp 33 H 10/31/23 11:00 BP 101/63 10/29/23 09:00 Pulse Ox 95 10/31/23 11:00 FiO2 50 10/30/23 12:00 Intake & Output 10/30/23 10/31/23 10/31/23 18:59 06:59 18:59 Intake Total 754.811 33 55 Output Total 1245 750 200 Balance -490.189 -717 -145 Weight 89.1 kg 89.1 kg Intake: IV 176 33 55 0.9 140 40 pressure bag 36 33 15 Intake, IV Titration 78.811 Amount propofoL 1,000 mg In 78.811 Empty Bag 1 bag @ 15 MCG/ KG/MIN 6.736 mls/hr IV . [id number] [facility] Rx#:[id number] Tube Feeding 500 Output: Urine 1245 750 200 Other: Voiding Method Indwelling Catheter Indwelling Catheter ABP, PAP, CO, CI - Last Documented Arterial Blood Pressure 116/62 - Exam GENERAL: The patient is alert and oriented x0 currently sedated on propofol on mechanical ventilation with an FiO2 of 50 % and PEEP is 5, Well developed, pale, elderly appearing, ill-appearing HEENT: Pupils are round and equally reacting to light. EOMI. No scleral icterus. No conjunctival pallor. Normocephalic, atraumatic. No pharyngeal erythema. No thyromegaly. CARDIOVASCULAR: S1 and S2 muffled and irregular, currently sinus on the monitor with heart rates in the 60s on exam PULMONARY: Chest is diminished with crackles noted at the bases, no wheezing or accessory muscle use noted. Severely diminished on the left ABDOMEN: Soft, obese nontender, nondistended, normoactive bowel sounds. No palpable organomegaly. MUSCULOSKELETAL: No joint swelling or deformity. EXTREMITIES: No cyanosis, clubbing, or pedal edema. NEUROLOGICAL: Unable to completely assess as patient is on mechanical ventilation intubated. SKIN: No rashes. Less pale - Labs CBC & Chem 7: 10/31/23 03:55 10/31/23 03:55 Labs: Abnormal Lab Results - Last 24 Hours (Table) 10/30/23 10/30/23 10/31/23 Range/Units 13:00 18:09 03:55 RBC 4.03 L (4.30-5.90) m/uL Hgb 12.2 L (13.0-17.5) gm/dL Hct 38.0 L (39.0-53.0) % RDW 15.9 H (11.5-15.5) % Plt Count 144 L (150-450) k/uL ABG pH 7.52 H (7.35-7.45) ABG pO2 123 H (83-108) mmHg ABG HCO3 30 H (21-25) mmol/L ABG Total CO2 31 H (19-24) mmol/L ABG O2 Saturation 99.7 H (94-97) % Creatinine (0.66-1.25) mg/dL Glucose (74-99) mg/dL POC Glucose (mg/dL) 128 H (70-110) mg/dL 10/31/23 Range/Units 03:55 RBC (4.30-5.90) m/uL Hgb (13.0-17.5) gm/dL Hct (39.0-53.0) % RDW (11.5-15.5) % Plt Count (150-450) k/uL ABG pH (7.35-7.45) ABG pO2 (83-108) mmHg ABG HCO3 (21-25) mmol/L ABG Total CO2 (19-24) mmol/L ABG O2 Saturation (94-97) % Creatinine 1.35 H (0.66-1.25) mg/dL Glucose 103 H (74-99) mg/dL POC Glucose (mg/dL) (70-110) mg/dL Microbiology - Last 24 Hours (Table) 10/28/23 20:11 Gram Stain - Final Sputum Sputum Culture - Final Staphylococcus aureus Assessment and Plan Assessment: Acute altered mental status, likely metabolic encephalopathy secondary to acute alcohol withdrawal, EtOH level was less than 10 the patient drinks heavily daily per medical record Acute hypoxic respiratory failure with respiratory compromise possibly secondary to multiple doses of Ativan and Valium requiring mechanical ventilation to protect the airway 10/28/2023 Hypokalemia, potassium 3.3 and being replaced per protocol Congestive heart failure, acute exacerbation, likely acute on chronic, unknown EF, 2D echo is ordered and pending Large left pleural effusion with a BNP of 22,000 Lactic acidosis likely secondary to above Elevated troponin, unsure of NSTEMI, possibly type II mismatch History of atrial fibrillation, currently atrial fibrillation with rapid ventricular rate started on Cardizem History of CVA/TIA with no residual effects in 2006 History of myocardial infarction in 2019 History of GERD History of hypertension Stage II pressure ulcer of the left buttock, present on admission Unstageable pressure ulcer of the right buttock, present on admission Former smoker Heavy daily alcohol use and drinks about a pint of rum per day Poor social support and poor living situation Noncompliance to medication and follow-up GI prophylaxis DVT prophylaxis Full code Plan: Patient was initially admitted with altered mental status and extremely poor living conditions per ER documentation for possible PT/OT therapy evaluation and social work also admitted for likely acute alcohol withdrawal Patient was placed on CIWA protocol and also given large doses of Ativan as well as Valium IV and became unresponsive and obtunded and an a team was called while in the ER hold due to respiratory compromise and patient was ultimately intubated and remains in the ICU Attempted sedation holidays yesterday although unsuccessful in attempting weaning trials again today. Patient becomes tacky and restless and thrashes about per nursing staff Patient with significant volume overload and was given a liter bolus in the ER along with maintained on large dose IV fluid hydration and became more obtunded and respiratory distress requiring mechanical ventilation. BNP was noted to be 22,000. Patient remains on mechanical ventilation weaning as tolerated and FiO2 is 50% with a PEEP of 5. No further IV Lasix per pulmonary. Multiple consultations following undergoing neurological workup as well. Patient noted to have pressure ulcers and wound care following, continue local wound care and offloading with frequent position changes every 2 hours Cardiology and pulmonary demand manager following as patient remains in the ICU Overall prognosis is guarded at this time Case management/social work on consult regarding social issues and living situations.
[2023-10-31 17:48] LABS: Glucose,Whole Blood 82 mg/dL (70-110)
[2023-11-01 00:08] LABS: Glucose,Whole Blood 74 mg/dL (70-110)
[2023-11-01 05:04] LABS: Basophils % (A) 0 %; Eosinophils # (A) 0.2 k/uL (0-0.7); Eosinophils % (A) 3 %; HCT 36.8 % (39.0-53.0); HGB 11.7 gm/dL (13.0-17.5); Hypochromasia Slight; Lymphocytes # (A) 0.6 k/uL (1.0-4.8); Lymphocytes % (A) 13 %; MCH 30.2 pg (25.0-35.0); MCHC 31.8 g/dL (31.0-37.0); MCV 94.9 fL (80.0-100.0); Mean Platelet Volume 9.9; Monocytes # (A) 0.3 k/uL (0-1.0); Monocytes % (A) 6 %; Neutrophils # (A) 3.9 k/uL (1.3-7.7); Neutrophils % (A) 77 %; Platelet Count 121 k/uL (150-450); RBC 3.88 m/uL (4.30-5.90); RDW 15.9 % (11.5-15.5); WBC 5.1 k/uL (3.8-10.6)
[2023-11-01 05:23] LABS: African American GFR (CKD) 76 (>60 ml/min/1.73 sqM); Blood Urea Nitrogen 18 mg/dL (9-20); Calcium 8.7 mg/dL (8.4-10.2); Carbon Dioxide 28 mmol/L (22-30); Chloride 98 mmol/L (98-107); Glucose 81 mg/dL (74-99); Non-African American GFR(CKD) 65 (>60 ml/min/1.73 sqM); Potassium 3.7 mmol/L (3.5-5.1)
[2023-11-01 05:40] LABS: Anion Gap 14 mmol/L; Sodium 140 mmol/L (137-145)
[2023-11-01] MEDS: POTASSIUM CHLORIDE 10 MEQ in WATER FOR INJECTION 1 100ML.BAG IVPB SCH (05:51)
--- NOTE | 2023-11-01 07:44 | XR ---
EXAMINATION TYPE: XR chest 1V portable DATE OF EXAM: 11/01/2023 COMPARISON: 10/31/2023 INDICATION: Postextubation TECHNIQUE: Single frontal view of the chest is obtained. FINDINGS: The heart size is enlarged. The pulmonary vasculature is somewhat prominent. Left pleural effusion may be present. Left upper lobe increased lung opacity is present. Some mild ri ght lower lobe infiltrate is present. Correlate for pulmonary edema. Atelectasis can be considered. Line enters on the left with the tip in the superior vena cava region IMPRESSION: 1. Moderate left and mild right lung infiltrates. Correlate for atelectasis and pulmonary edema. 2. Moderate left pleural effusion
[2023-11-01] MEDS: LEVOFLOXACIN 500 MG TAB PO SCH (09:16)
[2023-11-01] MEDS: DEXTROSE 5%-LACTATED RINGERS 1,000 ML IV SCH (09:56)
--- NOTE | 2023-11-01 09:56 | P.PN ---
Subjective Progress Note Date: 11/01/23 Principal diagnosis: Respiratory failure. Pulmonary consult dated October 28, 2023. This is a 73-year-old male who presented to the emergency department, on October 27, shortly after 12 AM. The patient came in with multiple complaints including chest pain, and weakness. Apparently, the patient has been living in squalid conditions at home, and was unable to take care of his animals, including a dog and a cat, and his living condition apparently has been significant for him. He apparently has not gotten out of bed for 3 to 4 days, according to the ER shreya. We were asked to see the patient because of pleural effusion. We saw the patient down in the emergency department, room #8. The patient was very lethargic and somnolent, having received Ativan recently, because of concerns of alcohol withdrawal syndrome. The patient was on O2 at 3 L. He was found to have a left-sided pleural effusion, and atrial fibrillation, he was placed on Cardizem at 5 mg an hour. The patient apparently has a history of CVA, atrial fibrillation, gastroesophageal reflux disease, myocardial infarction, hypertension, and is a smoker, and drinks heavily. Current labs include a white count 5.2, hemoglobin 13.6, hematocrit 42.3, and a normal platelet count. PT was 13.3 with an INR of 1.3. Blood gases showed a pO2 of 87, pCO2 of 45, and a pH of 7.28. Sodium 141, potassium 3.9, chlorides 106, CO2 25, anion gap 10, BUN 16, creatinine 1.43. The patient's troponin was 0.061. N-terminal proBNP was 22,700. The patient's TSH was 19. Albumin was 3.4. Urine showed trace protein, trace blood, rare sediment. Serum alcohol was less than 10. Brain CT showed nothing acute. Initial chest x-ray showed a large left pleural effusion. CT angiogram was negative for pulmonary embolism, and showed primarily volume overload, with ascites, and pleural effusion. CT of the abdomen showed moderate left renal hydronephrosis, volume overload, and a cirrhotic liver among other things. Ultrasound of the left chest reveals a 9.1 cm pocket of fluid on the left side, with nothing on the right side. The patient continued to receive Ativan in the emergency department, and became so somnolent, he essentially had near respiratory arrest, and was electively intubated, for airway protection and respiratory support. His post intubation chest x-ray showed a properly placed endotracheal tube. Progress note dated October 29, 2023. The patient is seen today in room 252. He remains on the mechanical ventilator. He was intubated yesterday, for impending respiratory failure, lethargy, and somnolence. Current ventilator settings include volume assist-control, rate 16, tidal volume 450, FiO2 50%, and PEEP of 5. Blood gases show pO2 71, pCO2 of 34, and a pH of 7.47. Currently, the patient is on saline at 10 cc an hour and propofol at 20 mcg/kg/min. He had an uneventful night according to the nurses. White count 6.2, hemoglobin 12.4, hematocrit 38.6, platelet count 138,000. Sodi um 140, potassium 2.6, chlorides 109, CO2 22, anion gap 9, BUN 14, creatinine 1.22. Glucose 101. Calcium 8.3. Albumin 2.6. Chest x-ray suggest fluid overload/CHF, and a large left-sided pleural effusion. Progress note dated October 30, 2023. The patient is seen today again in room 252. He remains on the mechanical ventilator. The patient did have a daily interruption of sedation yesterday, with an attempted spontaneous breathing trial, but he did poorly. He remains on volume assist-control, rate 16, tidal volume 450, FiO2 50%, PEEP of 5. Blood gases show pO2 of 83, pCO2 of 38, pH of 7.50. Venous blood gases are consistent with a metabolic alkalosis. His metabolic alkalosis is likely secondary to hypokalemia, and diuretic induced volume contraction. The patient is on propofol at 30 mcg/kg/min, saline at 20 cc an hour, and vital AF 1.2 at 40 with a goal of 50 cc an hour. After his potassium is corrected, the patient will have another attempt at weaning. White count is 6.7, hemoglobin 12.1, hematocrit 36.7, platelet count 140,000. Sodium 134, potassium 3.3, chlorides 105, CO2 27, BUN 14, creatinine 1.22. Glucose is 147. Calcium 8.1. Sputum sampling is negative for pending. Chest x-ray continues to show bilateral pleural effusions, and mild volume overload. Progress note dated October 31, 2023. The patient is seen today in room 252. The patient was extubated successfully yesterday, October 29. Currently, he is on 6 L of oxygen. He is getting saline at 10 cc an hour. He still a bit lethargic. Other than that, he had an uneventful night according to the nurses. Current laboratory data includes a white count 7.7, hemoglobin 12.2, hematocrit 38, and a platelet count of 144,000. Sodium 139, potassium 4.1, chlorides 104, CO2 29, BUN 17, creatinine 1.35. Glucose 103. Calcium is 8.6. Procalcitonin level 0.42. Sputum from October 27, shows evidence of Staphylococcus aureus. Chest x-ray shows opacification, in both lungs, left greater than right. There appears to be a left-sided pleural effusion. There may be a small effusion on the right. Progress note dated November 01, 2023. 73-year-old male seen again in room 252. The patient continues on oxygen at 4 L. He is getting saline at 5 cc an hour, which will be converted to D5 with lactated Ringer's at 75 cc an hour. The sputum sample was positive for oxacillin sensitive Staphylococcus aureus. We placed him on Levaquin 500 mg a day. I am going to discontinue all of the Ativan as it may be causing his mental status not to be as sharp. Labs include a white count 5.1, hemoglobin 11.7, hematocrit 36.8, platelet count 121,000. Sodium 140, potassium 3.7, chloride 98, CO2 28, BUN 18, creatinine 1.13. Calcium is 8.7. Chest x-ray shows a left-sided pleural effusion, and bilateral midlung infiltrates, as well as mild pulmonary edema. Objective - Vital Signs Vital signs: Vital Signs Temp 98.3 F 11/01/23 04:00 Pulse 83 11/01/23 06:00 Resp 15 11/01/23 06:00 BP 101/63 10/29/23 09:00 Pulse Ox 99 11/01/23 06:00 FiO2 50 10/30/23 12:00 Intake & Output 10/31/23 11/01/23 11/01/23 18:59 06:59 18:59 Intake Total 126 204 Output Total 390 550 Balance -264 -346 Weight 89.1 kg 81.9 kg Intake: IV 126 204 0.9 90 65 Potassium Chloride 10 meq 100 In Water For Injection 1 100ml.bag @ 100 mls/hr IVPB Q1H [facility] Rx#: [id number] pressure bag 36 39 Output: Urine 390 550 Other: Voiding Method Indwelling Catheter Indwelling Catheter ABP, PAP, CO, CI - Last Documented Arterial Blood Pressure 129/61 - Exam No acute distress, extubated, currently on 4 L nasal cannula. HEENT examination is grossly unremarkable. Neck supple. Full range of motion. No adenopathy thyromegaly or neck vein distention. Cardiovascular examination reveals regular rhythm rate. S1-S2 normal. No S3 or S4. No discernible murmur noted. Heart sounds are distant. Heart rate 83 bpm. Lungs reveal scattered rhonchi and crackles. No wheezes. Breath sounds equal. Saturations are 99 %. Abdomen soft bowel sounds are heard. No masses or tenderness. Extremities are intact. No cyanosis clubbing or edema. Skin is without rash or lesion. Neurologic examination is brief, but nonfocal. - Labs CBC & Chem 7: 11/01/23 04:45 11/01/23 04:45 Labs: Abnormal Lab Results - Last 24 Hours (Table) 11/01/23 Range/Units 04:45 RBC 3.88 L (4.30-5.90) m/uL Hgb 11.7 L (13.0-17.5) gm/dL Hct 36.8 L (39.0-53.0) % RDW 15.9 H (11.5-15.5) % Plt Count 121 L (150-450) k/uL Lymphocytes # 0.6 L (1.0-4.8) k/uL Microbiology - Last 24 Hours (Table) 10/28/23 20:11 Gram Stain - Final Sputum Sputum Culture - Final Staphylococcus aureus Assessment and Plan Assessment: Respiratory compromise/failure, secondary to Ativan administration, requiring intubation and mechanical ventilation, October 28, 2023. S/P extubation, on October 30, 2023. Oxacillin sensitive Staphylococcus aureus tracheobronchitis/bronchopneumonia. Left-sided pleural effusion. History of CVA. History of atrial fibrillation. Metabolic alkalosis, secondary to hypokalemia, and diuretic-induced volume contraction. Hypothyroidism. Gastroesophageal reflux disease. History of myocardial infarction. History of hypertension. History of ongoing tobacco use. History of chronic alcohol abuse. Plan: Plan dated October 28, 2023. After we saw the patient in the emergency department, the patient continued to receive Ativan, and apparently his respiratory status declined even further, and the patient required intubation and mechanical ventilation, which took place in the emergency department. I was notified of this, from my charge nurse Vilma. The patient will be excepted into the intensive care unit. Additional recommendations and suggestions are forthcoming. Labs, x-rays, medications are reviewed. Prognosis is guarded. Additional recommendations and suggestions are forthcoming, and the patient's overall prognosis remains guarded as mentioned above. Plan dated October 29, 2023. The patient will have a daily interruption of sedation, and a spontaneous breathing trial. The patient was placed on pressure support of 5, and CPAP of 5. In addition, because his TSH is still high, the patient will get Synthroid 100 mcg IV push, beginning today. Labs, x-rays, and all medications are reviewed. We will continue to follow the patient, make recommendations along t he way. Yesterday, a left subclavian central line was placed, along with a right radial art line. Additional recommendations and suggestions are forthcoming. Prognosis is guarded. Plan dated October 30, 2023. The patient's potassium will be corrected. The patient will not get any more Lasix at this time. The patient will have another daily interruption of sedation, and spontaneous breathing trial. Labs, x-rays, and medications are all reviewed. Additional recommendations and suggestions are forthcoming. We will continue to follow the patient. The patient's overall prognosis remains g uarded. He remains critically ill. He remains on GI and DVT prophylaxis. Plan dated October 31, 2023. The patient is seen today in room 252. The patient was extubated yesterday. He continues on oxygen at 6 L. He is getting saline at 10 cc an hour. Labs, x- rays, and medications are reviewed. The sputum from the is showing evidence of Staphylococcus aureus. Unfortunately, I cannot open, to see the sensitivities, and whether or not this is a oxacillin sensitive or oxacillin resistant staph. The patient will stay in the ICU for now. No additional recommendations are made. He is a heavy drinker. Drinks quite a bit of rum every day with Coke. The patient's overall prognosis remains guarded. The patient is not ready to be discharged out of the intensive care unit. His situation is still critical. Plan dated November 01, 2023. All of the patient's Ativan is discontinued for the time being. The patient is currently going to be placed on Levaquin, for his oxacillin sensitive Staphylococcus aureus tracheobronchitis/bronchopneumonia. The patient did not do well on his swallow evaluation, so we will change his IV to D5 with lactated Ringer's at 75 cc an hour. Labs, x-rays, and medications are all reviewed. We will continue to follow the patient, make recommendations along the way. Prognosis is guarded. Time with Patient: Less than 30
--- NOTE | 2023-11-01 11:41 | P.PN ---
Subjective HISTORY OF PRESENTING ILLNESS Patient is a 73-year-old male who presented on 10/28/2023 with chest pain and weakness. He had troponins 0.058, 0.059, 0.061 initially. EKG showed atrial fibrillation. While in the emergency department he received Ativan, became somnolent, and was subsequently intubated for airway protection and respiratory support. Past medical history significant for atrial fibrillation with controlled ventricular rate maintained on Eliquis, hypertension, cardiomyopathy, mitral regurgitation. Patient was successfully extubated yesterday. Patient able to respond to yes/no questions but not able to vocalize. He is currently in Afib with a HR in the 90-100s up to 120s and BP of 90s- 100s/60s. Not currently on Cardizem. Echo revealed LV EF 20%, severe biatrial dilatation, trace mitral regurgitation, and moderate tricuspid regurgitation. ROS performed. Pertinent positives and negatives discussed above, a complete re view of systems was performed and all the other systems were negative. 10/31 Patient seen and examined. Patient still somewhat confused however answering questions appropriately. Denies any chest pain or pressure. Does have a one-to-one sitter. He did fail his swallow evaluation and therefore has been nothing by mouth however is taking medications with applesauce. He is receiving IV fluids at 75 mL per hour. Blood pressures 100 to 130 systolic and arterial line due to be discontinued today with patient being transferred out of ICU. Creatinine improved to 1.1 today. PHYSICAL EXAMINATION Vital signs reviewed. CONSTITUTIONAL: No apparent distress, poor historian HEENT: Head is normocephalic. Pupils are equal, round. Sclerae anicteric. Mucous membranes of the mouth are moist. No JVD. No carotid bruit. CHEST EXAMINATION: Lungs are clear to auscultation. No chest wall tenderness is noted on palpation or with deep breathing. HEART EXAMINATION: Irregular rate and rhythm. S1, S2 heard. No murmurs, gallops or rub. ABDOMEN: Soft, nontender. Positive bowel sounds. EXTREMITIES: 2+ peripheral pulses, no lower extremity edema and no calf tenderness. NEUROLOGIC EXAMINATION: Patient is awake, alert and oriented x3. 1. HFrEF, acute on chronic; LV EF 20% per echo 10/29/2023 - significant decrease from 02/03/2020. 2. Persistent A-fib with controlled ventricular rate. Maintained on Eliquis. 3. Encephalopathy, metabolic. 4. History of hypertension. 5. EtOH abuse. 6. History of CVA/TIA. 7. History of myocardial infarction. Plan: Continue losartan 25 mg PO daily. Continue metoprolol tartrate 25 mg PO twice daily. Continue Eliquis. Blood pressure is borderline and patient nothing by mouth. Therefore continue with gentle IV fluids and monitor. Continue with heart failure regimen of losartan and metoprolol as tolerated. Objective - Vital Signs Vital signs: Vital Signs Temp 98.0 F 11/01/23 08:00 Pulse 76 11/01/23 11:21 Resp 20 11/01/23 11:00 BP 101/63 10/29/23 09:00 Pulse Ox 99 11/01/23 11:00 FiO2 50 10/30/23 12:00 Intake & Output 10/31/23 11/01/23 11/01/23 18:59 06:59 18:59 Intake Total 126 204 172 Output Total 390 550 60 Balance -264 -346 112 Weight 89.1 kg 81.9 kg Intake: IV 126 204 22 0.9 90 65 10 Potassium Chloride 10 meq 100 In Water For Injection 1 100ml.bag @ 100 mls/hr IVPB Q1H [facility] Rx#: [id number] pressure bag 36 39 12 Intake, IV Titration 150 Amount Dextrose 5%-Lactated 150 Ringers 1,000 ml @ 75 mls /hr IV .[id number] [facility] Rx#: [id number] Output: Urine 390 550 60 Other: Voiding Method Indwelling Catheter Indwelling Catheter Indwelling Catheter ABP, PAP, CO, CI - Last Documented Arterial Blood Pressure 97/45 - Labs CBC & Chem 7: 11/01/23 04:45 11/01/23 10:04 Labs: Abnormal Lab Results - Last 24 Hours (Table) 11/01/23 Range/Units 04:45 RBC 3.88 L (4.30-5.90) m/uL Hgb 11.7 L (13.0-17.5) gm/dL Hct 36.8 L (39.0-53.0) % RDW 15.9 H (11.5-15.5) % Plt Count 121 L (150-450) k/uL Lymphocytes # 0.6 L (1.0-4.8) k/uL Microbiology - Last 24 Hours (Table) 10/28/23 20:11 Gram Stain - Final Sputum Sputum Culture - Final Staphylococcus aureus
[2023-11-01 11:44] LABS: Glucose,Whole Blood 82 mg/dL (70-110)
[2023-11-01] MEDS: NYSTATIN 100,000 UNIT/GM OINT 30 GM TUBE TOPICAL SCH (20:17)
[2023-11-01] MEDS: HALOPERIDOL LACTATE 5 MG/ML 1 ML VIAL IVP PRN (22:42)
[2023-11-01 23:59] LABS: Glucose,Whole Blood 114 mg/dL (70-110)
[2023-11-02 05:46] LABS: HCT 36.2 % (39.0-53.0); HGB 11.5 gm/dL (13.0-17.5); Hypochromasia Marked; MCH 30.4 pg (25.0-35.0); MCHC 31.8 g/dL (31.0-37.0); MCV 95.5 fL (80.0-100.0); Mean Platelet Volume 9.1; Platelet Count 133 k/uL (150-450); RBC 3.79 m/uL (4.30-5.90); RDW 15.6 % (11.5-15.5)
--- NOTE | 2023-11-02 05:47 | P.PN ---
Subjective HISTORY OF PRESENTING ILLNESS Patient is a 73-year-old male who presented on 10/28/2023 with chest pain and weakness. He had troponins 0.058, 0.059, 0.061 initially. EKG showed atrial fibrillation. While in the emergency department he received Ativan, became somnolent, and was subsequently intubated for airway protection and respiratory support. Past medical history significant for atrial fibrillation with controlled ventricular rate maintained on Eliquis, hypertension, cardiomyopathy, mitral regurgitation. Patient was successfully extubated yesterday. Patient able to respond to yes/no questions but not able to vocalize. He is currently in Afib with a HR in the 90-100s up to 120s and BP of 90s- 100s/60s. Not currently on Cardizem. Echo revealed LV EF 20%, severe biatrial dilatation, trace mitral regurgitation, and moderate tricuspid regurgitation. ROS performed. Pertinent positives and negatives discussed above, a complete re view of systems was performed and all the other systems were negative. 10/31 Patient seen and examined. Patient still somewhat confused however answering questions appropriately. Denies any chest pain or pressure. Does have a one-to-one sitter. He did fail his swallow evaluation and therefore has been nothing by mouth however is taking medications with applesauce. He is receiving IV fluids at 75 mL per hour. Blood pressures 100 to 130 systolic and arterial line due to be discontinued today with patient being transferred out of ICU. Creatinine improved to 1.1 today. 11/01 patient seen and examined. Patient still confused and sundowning. He states he feels tired and has been unable to sleep. He does know he is at [facility]. He does admit to some vague chest pain. Not associated with any shortness breath. Still receiving IV fluids at 75 mL per hour. He also states he is feeling cold however no fevers or chills. PHYSICAL EXAMINATION Vital signs reviewed. CONSTITUTIONAL: No apparent distress, poor historian HEENT: Head is normocephalic. Pupils are equal, round. Sclerae anicteric. Mucous membranes of the mouth are moist. No JVD. No carotid bruit. CHEST EXAMINATION: Lungs are clear to auscultation. No chest wall tenderness is noted on palpation or with deep breathing. HEART EXAMINATION: Irregular rate and rhythm. S1, S2 heard. No murmurs, gallops or rub. ABDOMEN: Soft, nontender. Positive bowel sounds. EXTREMITIES: 2+ peripheral pulses, no lower extremity edema and no calf tenderness. NEUROLOGIC EXAMINATION: Patient is awake, alert and oriented x3. 1. HFrEF, acute on chronic; LV EF 20% per echo 10/29/2023 - significant decrease from 02/03/2020. 2. Persistent A-fib with controlled ventricular rate. Maintained on Eliquis. 3. Encephalopathy, metabolic. 4. History of hypertension. 5. EtOH abuse. 6. History of CVA/TIA. 7. History of myocardial infarction. Plan: Continue losartan 25 mg PO daily. Continue metoprolol tartrate 25 mg PO twice daily. Continue Eliquis. Continue with heart failure regimen of losartan and metoprolol as tolerated. patient stating he is having some atypical chest pain and we will check troponin for completeness sake. Otherwise continue with current supportive care. Objective - Vital Signs Vital signs: Vital Signs Temp 97.1 F L 11/02/23 00:00 Pulse 104 H 11/02/23 04:00 Resp 18 11/02/23 04:00 BP 106/80 11/02/23 04:00 Pulse Ox 98 11/02/23 04:00 FiO2 50 10/30/23 12:00 Intake & Output 11/01/23 11/01/23 11/02/23 06:59 18:59 06:59 Intake Total 314 928 3144 Output Total 550 210 245 Balance -346 343 905 Weight 81.9 kg Intake: IV 204 28 0.9 65 10 Potassium Chloride 10 meq 100 In Water For Injection 1 100ml.bag @ 100 mls/hr IVPB Q1H [facility] Rx#: [id number] pressure bag 39 18 Intake, IV Titration 525 900 Amount Dextrose 5%-Lactated 525 900 Ringers 1,000 ml @ 75 mls /hr IV .[id number] [facility] Rx#: [id number] Oral 250 Output: Urine 550 210 245 Other: Voiding Method Indwelling Catheter Indwelling Catheter Indwelling Catheter ABP, PAP, CO, CI - Last Documented Arterial Blood Pressure 97/45 - Labs CBC & Chem 7: 11/01/23 04:45 11/01/23 10:04 Labs: Abnormal Lab Results - Last 24 Hours (Table) 11/01/23 Range/Units 23:57 POC Glucose (mg/dL) 114 H (70-110) mg/dL
[2023-11-02 06:12] LABS: African American GFR (CKD) >90 (>60 ml/min/1.73 sqM); Anion Gap 1 mmol/L; Blood Urea Nitrogen 16 mg/dL (9-20); Calcium 8.9 mg/dL (8.4-10.2); Carbon Dioxide 27 mmol/L (22-30); Chloride 107 mmol/L (98-107); Glucose 109 mg/dL (74-99); Non-African American GFR(CKD) 83 (>60 ml/min/1.73 sqM); Sodium 135 mmol/L (137-145)
--- NOTE | 2023-11-02 09:13 | P.PN ---
Subjective Progress Note Date: 11/02/23 Principal diagnosis: Respiratory failure. Pulmonary consult dated October 28, 2023. This is a 73-year-old male who presented to the emergency department, on October 27, shortly after 12 AM. The patient came in with multiple complaints including chest pain, and weakness. Apparently, the patient has been living in squalid conditions at home, and was unable to take care of his animals, including a dog and a cat, and his living condition apparently has been significant for him. He apparently has not gotten out of bed for 3 to 4 days, according to the ER shreya. We were asked to see the patient because of pleural effusion. We saw the patient down in the emergency department, room #8. The patient was very lethargic and somnolent, having received Ativan recently, because of concerns of alcohol withdrawal syndrome. The patient was on O2 at 3 L. He was found to have a left-sided pleural effusion, and atrial fibrillation, he was placed on Cardizem at 5 mg an hour. The patient apparently has a history of CVA, atrial fibrillation, gastroesophageal reflux disease, myocardial infarction, hypertension, and is a smoker, and drinks heavily. Current labs include a white count 5.2, hemoglobin 13.6, hematocrit 42.3, and a normal platelet count. PT was 13.3 with an INR of 1.3. Blood gases showed a pO2 of 87, pCO2 of 45, and a pH of 7.28. Sodium 141, potassium 3.9, chlorides 106, CO2 25, anion gap 10, BUN 16, creatinine 1.43. The patient's troponin was 0.061. N-terminal proBNP was 22,700. The patient's TSH was 19. Albumin was 3.4. Urine showed trace protein, trace blood, rare sediment. Serum alcohol was less than 10. Brain CT showed nothing acute. Initial chest x-ray showed a large left pleural effusion. CT angiogram was negative for pulmonary embolism, and showed primarily volume overload, with ascites, and pleural effusion. CT of the abdomen showed moderate left renal hydronephrosis, volume overload, and a cirrhotic liver among other things. Ultrasound of the left chest reveals a 9.1 cm pocket of fluid on the left side, with nothing on the right side. The patient continued to receive Ativan in the emergency department, and became so somnolent, he essentially had near respiratory arrest, and was electively intubated, for airway protection and respiratory support. His post intubation chest x-ray showed a properly placed endotracheal tube. Progress note dated October 29, 2023. The patient is seen today in room 252. He remains on the mechanical ventilator. He was intubated yesterday, for impending respiratory failure, lethargy, and somnolence. Current ventilator settings include volume assist-control, rate 16, tidal volume 450, FiO2 50%, and PEEP of 5. Blood gases show pO2 71, pCO2 of 34, and a pH of 7.47. Currently, the patient is on saline at 10 cc an hour and propofol at 20 mcg/kg/min. He had an uneventful night according to the nurses. White count 6.2, hemoglobin 12.4, hematocrit 38.6, platelet count 138,000. Sodi um 140, potassium 2.6, chlorides 109, CO2 22, anion gap 9, BUN 14, creatinine 1.22. Glucose 101. Calcium 8.3. Albumin 2.6. Chest x-ray suggest fluid overload/CHF, and a large left-sided pleural effusion. Progress note dated October 30, 2023. The patient is seen today again in room 252. He remains on the mechanical ventilator. The patient did have a daily interruption of sedation yesterday, with an attempted spontaneous breathing trial, but he did poorly. He remains on volume assist-control, rate 16, tidal volume 450, FiO2 50%, PEEP of 5. Blood gases show pO2 of 83, pCO2 of 38, pH of 7.50. Venous blood gases are consistent with a metabolic alkalosis. His metabolic alkalosis is likely secondary to hypokalemia, and diuretic induced volume contraction. The patient is on propofol at 30 mcg/kg/min, saline at 20 cc an hour, and vital AF 1.2 at 40 with a goal of 50 cc an hour. After his potassium is corrected, the patient will have another attempt at weaning. White count is 6.7, hemoglobin 12.1, hematocrit 36.7, platelet count 140,000. Sodium 134, potassium 3.3, chlorides 105, CO2 27, BUN 14, creatinine 1.22. Glucose is 147. Calcium 8.1. Sputum sampling is negative for pending. Chest x-ray continues to show bilateral pleural effusions, and mild volume overload. Progress note dated October 31, 2023. The patient is seen today in room 252. The patient was extubated successfully yesterday, October 29. Currently, he is on 6 L of oxygen. He is getting saline at 10 cc an hour. He still a bit lethargic. Other than that, he had an uneventful night according to the nurses. Current laboratory data includes a white count 7.7, hemoglobin 12.2, hematocrit 38, and a platelet count of 144,000. Sodium 139, potassium 4.1, chlorides 104, CO2 29, BUN 17, creatinine 1.35. Glucose 103. Calcium is 8.6. Procalcitonin level 0.42. Sputum from October 27, shows evidence of Staphylococcus aureus. Chest x-ray shows opacification, in both lungs, left greater than right. There appears to be a left-sided pleural effusion. There may be a small effusion on the right. Progress note dated November 01, 2023. 73-year-old male seen again in room 252. The patient continues on oxygen at 4 L. He is getting saline at 5 cc an hour, which will be converted to D5 with lactated Ringer's at 75 cc an hour. The sputum sample was positive for oxacillin sensitive Staphylococcus aureus. We placed him on Levaquin 500 mg a day. I am going to discontinue all of the Ativan as it may be causing his mental status not to be as sharp. Labs include a white count 5.1, hemoglobin 11.7, hematocrit 36.8, platelet count 121,000. Sodium 140, potassium 3.7, chloride 98, CO2 28, BUN 18, creatinine 1.13. Calcium is 8.7. Chest x-ray shows a left-sided pleural effusion, and bilateral midlung infiltrates, as well as mild pulmonary edema. Progress note dated November 02, 2023. 73-year-old male seen today in room 252. The patient is currently on 4 L oxygen. He is getting dextrose with lactated Ringer's at 75 cc an hour. The patient was agitated through the night, and Haldol, was given once, but did not seem to help. Today we add Seroquel, 25 mg 3 times a day. Will also add a ni cotine patch. Current laboratory data includes a white count 4, hemoglobin 11.5, hematocrit 36.2, and a platelet count of 133,000. Sodium 135, potassium 4, chlorides 107, CO2 27, BUN 16, creatinine 0.93. Troponin 0.026. Calcium 8.9. Glucose 109. Sputum revealed evidence of oxacillin sensitive Staph aureus. The patient was started on Levaquin. Objective - Vital Signs Vital signs: Vital Signs Temp 97.1 F L 11/02/23 00:00 Pulse 104 H 11/02/23 04:00 Resp 18 11/02/23 04:00 BP 106/80 11/02/23 04:00 Pulse Ox 98 11/02/23 04:00 FiO2 50 10/30/23 12:00 Intake & Output 11/01/23 11/02/23 11/02/23 18:59 06:59 18:59 Intake Total 553 1150 Output Total 210 245 Balance 343 905 Weight 85.5 kg Intake: IV 28 0.9 10 pressure bag 18 Intake, IV Titration 525 900 Amount Dextrose 5%-Lactated 525 900 Ringers 1,000 ml @ 75 mls /hr IV .[id number] [facility] Rx#: [id number] Oral 250 Output: Urine 210 245 Other: Voiding Method Indwelling Catheter Indwelling Catheter ABP, PAP, CO, CI - Last Documented Arterial Blood Pressure 97/45 - Exam No acute distress, extubated, currently on 4 L nasal cannula. HEENT examination is grossly unremarkable. Neck supple. Full range of motion. No adenopathy thyromegaly or neck vein distention. Cardiovascular examination reveals regular rhythm rate. S1-S2 normal. No S3 or S4. No discernible murmur noted. Heart sounds are distant. Heart rate 97 bpm. Lungs reveal scattered rhonchi and crackles. No wheezes. Breath sounds equal. Saturations are 98 %. Abdomen soft bowel sounds are heard. No masses or tenderness. Extremities are intact. No cyanosis clubbing or edema. Skin is without rash or lesion. Neurologic examination is brief, but nonfocal. - Labs CBC & Chem 7: 11/02/23 05:36 11/02/23 05:36 Labs: Abnormal Lab Results - Last 24 Hours (Table) 11/01/23 11/02/23 11/02/23 Range/Units 23:57 05:36 05:36 RBC 3.79 L (4.30-5.90) m/uL Hgb 11.5 L (13.0-17.5) gm/dL Hct 36.2 L (39.0-53.0) % RDW 15.6 H (11.5-15.5) % Plt Count 133 L (150-450) k/uL Sodium 135 L (137-145) mmol/L Glucose 109 H (74-99) mg/dL POC Glucose (mg/dL) 114 H (70-110) mg/dL Assessment and Plan Assessment: Respiratory compromise/failure, secondary to Ativan administration, requiring intubation and mechanical ventilation, October 28, 2023. S/P extubation, on October 30, 2023. Oxacillin sensitive Staphylococcus aureus tracheobronchitis/bronchopneumonia. Left-sided pleural effusion. History of CVA. History of atrial fibrillation. Metabolic alkalosis, secondary to hypokalemia, and diuretic-induced volume contraction. Hypothyroidism. Gastroesophageal reflux disease. History of myocardial infarction. History of hypertension. History of ongoing tobacco use. History of chronic alcohol abuse. Plan: Plan dated October 28, 2023. After we saw the patient in the emergency department, the patient continued to receive Ativan, and apparently his respiratory status declined even further, and the patient required intubation and mechanical ventilation, which took place in the emergency department. I was notified of this, from my charge nurse Vilma. The patient will be excepted into the intensive care unit. Additional recommendations and suggestions are forthcoming. Labs, x-rays, medications are reviewed. Prognosis is guarded. Additional recommendations and suggestions are forthcoming, and the patient's overall prognosis remains guarded as mentioned above. Plan dated October 29, 2023. The patient will have a daily interruption of sedation, and a spontaneous breathing trial. The patient was placed on pressure support of 5, and CPAP of 5. In addition, because his TSH is still high, the patient will get Synthroid 100 mcg IV push, beginning today. Labs, x-rays, and all medications are reviewed. We will continue to follow the patient, make recommendations along the way. Yesterday, a left subclavian central line was placed, along with a right radial art line. Additional recommendations and suggestions are forthcoming. Prognosis is guarded. Plan dated October 30, 2023. The patient's potassium will be corrected. The patient will not get any more Lasix at this time. The patient will have another daily interruption of sedation, and spontaneous breathing trial. Labs, x-rays, and medications are all reviewed. Additional recommendations and suggestions are forthcoming. We will continue to follow the patient. The patient's overall prognosis remains guarded. He remains critically ill. He remains on GI and DVT prophylaxis. Plan dated October 31, 2023. The patient is seen today in room 252. The patient was extubated yesterday. He continues on oxygen at 6 L. He is getting saline at 10 cc an hour. Labs, x- rays, and medications are reviewed. The sputum from the is showing evidence of Staphylococcus aureus. Unfortunately, I cannot open, to see the [facility] sitivities, and whether or not this is a oxacillin sensitive or oxacillin resistant staph. The patient will stay in the ICU for now. No additional recommendations are made. He is a heavy drinker. Drinks quite a bit of rum every day with Coke. The patient's overall prognosis remains guarded. The patient is not ready to be discharged out of the intensive care unit. His situation is still critical. Plan dated November 01, 2023. All of the patient's Ativan is discontinued for the time being. The patient is currently going to be placed on Levaquin, for his oxacillin sensitive Staphylococcus aureus tracheobronchitis/bronchopneumonia. The patient did not do well on his swallow evaluation, so we will change his IV to D5 with lactated Ringer's at 75 cc an hour. Labs, x-rays, and medications are all reviewed. We will continue to follow the patient, make recommendations along the way. P rognosis is guarded. Plan dated November 02, 2023. The patient is seen today in room 252. A sitter is in the room. The patient is currently sleeping. The patient was agitated through the night. He received Haldol only 1 time. A nicotine patch is added, at 14 mg a day. We also add Seroquel 25 mg 3 times a day. Labs, x-rays, medications are reviewed. The patient is on dextrose with lactated Ringer's at 75 cc an hour. He failed his swallowing evaluation, but he is able to take pills by mouth. We will continue to follow the patient, and make recommendations along the way. Time with Patient: Less than 30
[2023-11-02] MEDS: NICOTINE 14MG/24HR PATCH TRANSDERM SCH (09:30)
[2023-11-02] MEDS: QUEtiapine 25 MG TAB PO SCH (11:29)
--- NOTE | 2023-11-02 15:04 | P.PN ---
Subjective Progress Note Date: 11/01/23 73-year-old male who presented to the emergency department via EMS with reports from the emergency department that patient was altered and debilitated in his living situation at home is very unkempt including multiple animals who appear malnourished and on care for as well. Unsure of last primary care provider and any compliance to follow-up in the outpatient setting. Per medical record patient does have a history of atrial fibrillation with documented medication refills by hand drawer in Dr. Moralez earlier this year, history of CVA/TIA, GERD, hypertension, previous myocardial infarction, former smoker and significant daily EtOH use. Patient was admitted initially to [facility] for altered mental status with acute NSTEMI and weakness with debility, possible alcohol withdrawal and atrial fibrillation uncontrolled with RVR. EKG showed atrial fibrillation with RVR and heart rate was 105, brain CT was performed showing no acute hemorrhage hydrocephalus or mass effect. Chest x-ray showed severe left pleural effusion with cardiomegaly. Patient was started on CIWA protocol and also 2 to 3 L via nasal cannula. Patient did undergo CT angio of the chest with no evidence of PE within the pulmonary outflow tract or immediate proximal branches, significant sequela of volume overload with mesenteric ascites and pleural effusions with cirrhotic morphology of the liver and cardiomegaly. Chest ultrasound was performed and left side was marked for possible thoracentesis. The left pleural effusion pocket size is 9.1 cm. Labs reviewed and patient had a normal white count of 5.2, hemoglobin was 13.6, platelets 176, INR 1.3, ABG showed a low pH of 7.28 O2 saturation was 95%. Sodium was 141 with a potassium of 3.9, BUN 16, creatinine mildly elevated at 1.43. Initial lactic acid was 2.1 and repeat remained the same and patient did receive a liter of fluids while in the ER and was continued on normal saline at a rate of 130 mL/h. Later patient did have a BNP drawn which significantly elevated at 22,700. TSH also found to be abnormal at 19 although free T4 was normal at 1.32. Albumin was 3.4. Urinalysis was done and negative and serum alcohol was noted to be less than 10. Troponins were also mildly elevated at 0.061 and trending up. Patient noted to be restless per nursing staff in the ER and was given an additional dose of Valium along with Ativan and then became obtunded and non responsive and ultimately required mechanical ventilation to protect airway. Patient is now admitted to the ICU and is being started on Lasix. Cardizem was initiated as well and patient has since converted and Cardizem has been placed on hold. Cardiac/pulmonary have been consulted. Patient is currently intubated with an FiO2 of 100% and PEEP of 5 maintaining oxygen saturations above 90%. ----Patient was successfully extubated yesterday. Patient able to respond to yes/no questions but not able to vocalize. He is currently in Afib with a HR in the 90-100s up to 120s and BP of 90s-100s/60s. Not currently on Cardizem. Echo revealed LV EF 20%, severe biatrial dilatation, trace mitral regurgitation, and moderate tricuspid regurgitation. Current laboratory data includes a white count 7.7, hemoglobin 12.2, hematocrit 38, and a platelet count of 144,000. Sodium 139, potassium 4.1, chlorides 104, CO2 29, BUN 17, creatinine 1.35. Glucose 103. Calcium is 8.6. Procalcitonin level 0.42. Sputum from October 27, shows evidence of Staphylococcus aureus. Chest x-ray shows opacification, in both lungs, left greater than right. There appears to be a left-sided pleural effusion. 11/01/2023 Patient is seen and evaluated in room at bedside; was extubated successfully yesterday, October 29. Currently, he is on 6 L of oxygen. He is getting saline at 10 cc an hour. He still a bit lethargic. Other than that, he had an uneventful night according to the nurses. Lab review shows a white count 7.7, hemoglobin 12.2, hematocrit 38, and a platelet count of 144,000. Sodium 139, potassium 4.1, chlorides 104, CO2 29, BUN 17, creatinine 1.35. Glucose 103. Calcium is 8.6. Procalcitonin level 0.42. Sputum from October 27, shows evidence of Staphylococcus aureus. Chest x- ray shows opacification, in both lungs, left greater than right. There appears to be a left-sided pleural effusion. There may be a small effusion on the right. Patient remains in ICU-plan is to start patient on antibiotic once final culture reports are available Objective - Vital Signs Vital signs: Vital Signs Temp 98.3 F 11/01/23 04:00 Pulse 83 11/01/23 06:00 Resp 15 11/01/23 06:00 BP 101/63 10/29/23 09:00 Pulse Ox 99 11/01/23 06:00 FiO2 50 10/30/23 12:00 Intake & Output 10/31/23 11/01/23 11/01/23 18:59 06:59 18:59 Intake Total 126 204 Output Total 390 550 Balance -264 -346 Weight 89.1 kg 81.9 kg Intake: IV 126 204 0.9 90 65 Potassium Chloride 10 meq 100 In Water For Injection 1 100ml.bag @ 100 mls/hr IVPB Q[facility]H [facility] Rx#: [id number] pressure bag 36 39 Output: Urine 390 550 Other: Voiding Method Indwelling Catheter Indwelling Catheter ABP, PAP, CO, CI - Last Documented Arterial Blood Pressure 129/61 - Exam GENERAL: The patient is alert and oriented x0 currently sedated on propofol on mechanical ventilation with an FiO2 of 50 % and PEEP is 5, Well developed, pale, elderly appearing, ill-appearing HEENT: Pupils are round and equally reacting to light. EOMI. No scleral icterus. No conjunctival pallor. Normocephalic, atraumatic. No pharyngeal erythema. No thyromegaly. CARDIOVASCULAR: S1 and S2 muffled and irregular, currently sinus on the monitor with heart rates in the 60s on exam PULMONARY: Chest is diminished with crackles noted at the bases, no wheezing or accessory muscle use noted. Severely diminished on the left ABDOMEN: Soft, obese nontender, nondistended, normoactive bowel sounds. No palpable organomegaly. MUSCULOSKELETAL: No joint swelling or deformity. EXTREMITIES: No cyanosis, clubbing, or pedal edema. NEUROLOGICAL: Unable to completely assess as patient is on mechanical ventilation intubated. SKIN: No rashes. Less pale - Labs CBC & Chem 7: 11/02/23 05:36 11/02/23 05:36 Labs: Abnormal Lab Results - Last 24 Hours (Table) 11/01/23 Range/Units 04:45 RBC 3.88 L (4.30-5.90) m/uL Hgb 11.7 L (13.0-17.5) gm/dL Hct 36.8 L (39.0-53.0) % RDW 15.9 H (11.5-15.5) % Plt Count 121 L (150-450) k/uL Lymphocytes # 0.6 L (1.0-4.8) k/uL Microbiology - Last 24 Hours (Table) 10/28/23 20:11 Gram Stain - Final Sputum Sputum Culture - Final Staphylococcus aureus Assessment and Plan Assessment: Acute altered mental status, likely metabolic encephalopathy secondary to acute alcohol withdrawal, EtOH level was less than 10 the patient drinks heavily daily per medical record Acute hypoxic respiratory failure with respiratory compromise possibly secondary to multiple doses of Ativan and Valium requiring mechanical ventilation to protect the airway 10/28/2023 Hypokalemia, potassium 3.3 and being replaced per protocol Congestive heart failure, acute exacerbation, likely acute on chronic, unknown EF, 2D echo is ordered and pending Large left pleural effusion with a BNP of 22,000 Lactic acidosis likely secondary to above Elevated troponin, unsure of NSTEMI, possibly type II mismatch History of atrial fibrillation, currently atrial fibrillation with rapid ventricular rate started on Cardizem History of CVA/TIA with no residual effects in 2006 History of myocardial infarction in 2019 History of GERD History of hypertension Stage II pressure ulcer of the left buttock, present on admission Unstageable pressure ulcer of the right buttock, present on admission Former smoker Heavy daily alcohol use and drinks about a pint of rum per day Poor social support and poor living situation Noncompliance to medication and follow-up GI prophylaxis DVT prophylaxis Full code Plan: Patient was initially admitted with altered mental status and extremely poor living conditions per ER documentation for possible PT/OT therapy evaluation and social work also admitted for likely acute alcohol withdrawal Patient was placed on CIWA protocol and also given large doses of Ativan as well as Valium IV and became unresponsive and obtunded and an a team was called while in the ER hold due to respiratory compromise and patient was ultimately intubated and remains in the ICU Attempted sedation holidays yesterday although unsuccessful in attempting weaning trials again today. Patient becomes tacky and restless and thrashes about per nursing staff Patient with significant volume overload and was given a liter bolus in the ER along with maintained on large dose IV fluid hydration and became more obtunded and respiratory distress requiring mechanical ventilation. BNP was noted to be 22,000. Patient remains on mechanical ventilation weaning as tolerated and FiO2 is 50% with a PEEP of 5. No further IV Lasix per pulmonary. Multiple consultations following undergoing neurological workup as well. Patient noted to have pressure ulcers and wound care following, continue local wound care and offloading with frequent position changes every 2 hours Cardiology and pulmonary administrative coordinator following as patient remains in the ICU Overall prognosis is guarded at this time Case management/social work on consult regarding social issues and living situations.
--- NOTE | 2023-11-02 15:06 | P.PN ---
Subjective Progress Note Date: 11/02/23 73-year-old male who presented to the emergency department via EMS with reports from the emergency department that patient was altered and debilitated in his living situation at home is very unkempt including multiple animals who appear malnourished and on care for as well. Unsure of last primary care provider and any compliance to follow-up in the outpatient setting. Per medical record patient does have a history of atrial fibrillation with documented medication refills by medical office assistant instructor Dr. Moralez earlier this year, history of CVA/TIA, GERD, hypertension, previous myocardial infarction, former smoker and significant daily EtOH use. Patient was admitted initially to [facility] for altered mental status with acute NSTEMI and weakness with debility, possible alcohol withdrawal and atrial fibrillation uncontrolled with RVR. EKG showed atrial fibrillation with RVR and heart rate was 105, brain CT was performed showing no acute hemorrhage hydrocephalus or mass effect. Chest x-ray showed severe left pleural effusion with cardiomegaly. Patient was started on CIWA protocol and also 2 to 3 L via nasal cannula. Patient did undergo CT angio of the chest with no evidence of PE within the pulmonary outflow tract or immediate proximal branches, significant sequela of volume overload with mesenteric ascites and pleural effusions with cirrhotic morphology of the liver and cardiomegaly. Chest ultrasound was performed and left side was marked for possible thoracentesis. The left pleural effusion pocket size is 9.1 cm. Labs reviewed and patient had a normal white count of 5.2, hemoglobin was 13.6, platelets 176, INR 1.3, ABG showed a low pH of 7.28 O2 saturation was 95%. Sodium was 141 with a potassium of 3.9, BUN 16, creatinine mildly elevated at 1.43. Initial lactic acid was 2.1 and repeat remained the same and patient did receive a liter of fluids while in the ER and was continued on normal saline at a rate of 130 mL/h. Later patient did have a BNP drawn which significantly elevated at 22,700. TSH also found to be abnormal at 19 although free T4 was normal at 1.32. Albumin was 3.4. Urinalysis was done and negative and serum alcohol was noted to be less than 10. Troponins were also mildly elevated at 0.061 and trending up. Patient noted to be restless per nursing staff in the ER and was given an additional dose of Valium along with Ativan and then became obtunded and non responsive and ultimately required mechanical ventilation to protect airway. Patient is now admitted to the ICU and is being started on Lasix. Cardizem was initiated as well and patient has since converted and Cardizem has been placed on hold. Cardiac/pulmonary have been consulted. Patient is currently intubated with an FiO2 of 100% and PEEP of 5 maintaining oxygen saturations above 90%. ----Patient was successfully extubated yesterday. Patient able to respond to yes/no questions but not able to vocalize. He is currently in Afib with a HR in the 90-100s up to 120s and BP of 90s-100s/60s. Not currently on Cardizem. Echo revealed LV EF 20%, severe biatrial dilatation, trace mitral regurgitation, and moderate tricuspid regurgitation. Current laboratory data includes a white count 7.7, hemoglobin 12.2, hematocrit 38, and a platelet count of 144,000. Sodium 139, potassium 4.1, chlorides 104, CO2 29, BUN 17, creatinine 1.35. Glucose 103. Calcium is 8.6. Procalcitonin level 0.42. Sputum from October 27, shows evidence of Staphylococcus aureus. Chest x-ray shows opacification, in both lungs, left greater than right. There appears to be a left-sided pleural effusion. 11/01/2023 Patient is seen and evaluated in room at bedside; was extubated successfully yesterday, October 29. Currently, he is on 6 L of oxygen. He is getting saline at 10 cc an hour. He still a bit lethargic. Other than that, he had an uneventful night according to the nurses. Lab review shows a white count 7.7, hemoglobin 12.2, hematocrit 38, and a platelet count of 144,000. Sodium 139, potassium 4.1, chlorides 104, CO2 29, BUN 17, creatinine 1.35. Glucose 103. Calcium is 8.6. Procalcitonin level 0.42. Sputum from October 27, shows evidence of Staphylococcus aureus. Chest x- ray shows opacification, in both lungs, left greater than right. There appears to be a left-sided pleural effusion. There may be a small effusion on the right. Patient remains in ICU-plan is to start patient on antibiotic once final culture reports are available 11/02/2023 Patient remains in ICU; and evaluated with sitter at bedside; patient was agitated yesterday evening and through the night; received Haldol which did not help; Seroquel has been added 25 mg 3 times daily -- currently on 4 L oxygen. He is getting dextrose with lactated Ringer's at 75 cc an hour. The patient was agitated through the night, and Haldol, was given once, but did not seem to help. Today we add Seroquel, 25 mg 3 times a day. -- Current laboratory data includes a white count 4, hemoglobin 11.5, hematocrit 36.2, and a platelet count of 133,000. Sodium 135, potassium 4, chlorides 107, CO2 27, BUN 16, creatinine 0.93. Troponin 0.026. Calcium 8.9. Glucose 109. Sputum revealed evidence of oxacillin sensitive Staph aureus. The patient was started on Levaquin. Objective - Vital Signs Vital signs: Vital Signs Temp 97.1 F L 11/02/23 00:00 Pulse 104 H 11/02/23 04:00 Resp 18 11/02/23 04:00 BP 106/80 11/02/23 04:00 Pulse Ox 98 11/02/23 04:00 FiO2 50 10/30/23 12:00 Intake & Output 11/01/23 11/02/23 11/02/23 18:59 06:59 18:59 Intake Total 553 1150 Output Total 210 245 Balance 343 905 Weight 85.5 kg Intake: IV 28 0.9 10 pressure bag 18 Intake, IV Titration 525 900 Amount Dextrose 5%-Lactated 525 900 Ringers 1,000 ml @ 75 mls /hr IV .[id number] [facility] Rx#: [id number] Oral 250 Output: Urine 210 245 Other: Voiding Method Indwelling Catheter Indwelling Catheter ABP, PAP, CO, CI - Last Documented Arterial Blood Pressure 97/45 - Exam GENERAL: The patient is alert and oriented x0 currently sedated on propofol on mechanical ventilation with an FiO2 of 50 % and PEEP is 5, Well developed, pale, elderly appearing, ill-appearing HEENT: Pupils are round and equally reacting to light. EOMI. No scleral icterus. No conjunctival pallor. Normocephalic, atraumatic. No pharyngeal erythema. No thyromegaly. CARDIOVASCULAR: S1 and S2 muffled and irregular, currently sinus on the monitor with heart rates in the 60s on exam PULMONARY: Chest is diminished with crackles noted at the bases, no wheezing or accessory muscle use noted. Severely diminished on the left ABDOMEN: Soft, obese nontender, nondistended, normoactive bowel sounds. No palpable organomegaly. MUSCULOSKELETAL: No joint swelling or deformity. EXTREMITIES: No cyanosis, clubbing, or pedal edema. NEUROLOGICAL: Unable to completely assess as patient is on mechanical ventilation intubated. SKIN: No rashes. Less pale - Labs CBC & Chem 7: 11/02/23 05:36 11/02/23 05:36 Labs: Abnormal Lab Results - Last 24 Hours (Table) 11/01/23 11/02/23 11/02/23 Range/Units 23:57 05:36 05:36 RBC 3.79 L (4.30-5.90) m/uL Hgb 11.5 L (13.0-17.5) gm/dL Hct 36.2 L (39.0-53.0) % RDW 15.6 H (11.5-15.5) % Plt Count 133 L (150-450) k/uL Sodium 135 L (137-145) mmol/L Glucose 109 H (74-99) mg/dL POC Glucose (mg/dL) 114 H (70-110) mg/dL Assessment and Plan Assessment: Acute altered mental status, likely metabolic encephalopathy secondary to acute alcohol withdrawal, EtOH level was less than 10 the patient drinks heavily daily per medical record Acute hypoxic respiratory failure with respiratory compromise possibly secondary to multiple doses of Ativan and Valium requiring mechanical ventilation to protect the airway 10/28/2023 Hypokalemia, potassium 3.3 and being replaced per protocol Congestive heart failure, acute exacerbation, likely acute on chronic, unknown EF, 2D echo is ordered and pending Large left pleural effusion with a BNP of 22,000 Lactic acidosis likely secondary to above Elevated troponin, unsure of NSTEMI, possibly type II mismatch History of atrial fibrillation, currently atrial fibrillation with rapid ventricular rate started on Cardizem History of CVA/TIA with no residual effects in 2006 History of myocardial infarction in 2019 History of GERD History of hypertension Stage II pressure ulcer of the left buttock, present on admission Unstageable pressure ulcer of the right buttock, present on admission Former smoker Heavy daily alcohol use and drinks about a pint of rum per day Poor social support and poor living situation Noncompliance to medication and follow-up GI prophylaxis DVT prophylaxis Full code Plan: Patient was initially admitted with altered mental status and extremely poor living conditions per ER documentation for possible PT/OT therapy evaluation and social work also admitted for likely acute alcohol withdrawal Patient was placed on CIWA protocol and also given large doses of Ativan as well as Valium IV and became unresponsive and obtunded and an a team was called while in the ER hold due to respiratory compromise and patient was ultimately intubated and remains in the ICU Attempted sedation holidays yesterday although unsuccessful in attempting weaning trials again today. Patient becomes tacky and restless and thrashes about per nursing staff Patient with significant volume overload and was given a liter bolus in the ER along with maintained on large dose IV fluid hydration and became more obtunded and respiratory distress requiring mechanical ventilation. BNP was noted to be 22,000. Patient remains on mechanical ventilation weaning as tolerated and FiO2 is 50% with a PEEP of 5. No further IV Lasix per pulmonary. Multiple consultations following undergoing neurological workup as well. Patient noted to have pressure ulcers and wound care following, continue local wound care and offloading with frequent position changes every 2 hours Cardiology and pulmonary supervisor fish bait processing following as patient remains in the ICU Overall prognosis is guarded at this time Case management/social work on consult regarding social issues and living situations.
[2023-11-02 18:05] LABS: Glucose,Whole Blood 105 mg/dL (70-110)
[2023-11-03 00:09] LABS: Glucose,Whole Blood 110 mg/dL (70-110)
[2023-11-03 05:52] LABS: Glucose,Whole Blood 93 mg/dL (70-110)
[2023-11-03 05:59] LABS: HCT 35.2 % (39.0-53.0); HGB 11.2 gm/dL (13.0-17.5); Hypochromasia Slight; MCH 30.6 pg (25.0-35.0); MCHC 31.9 g/dL (31.0-37.0); Mean Platelet Volume 9.4; Platelet Count 106 k/uL (150-450); RBC 3.66 m/uL (4.30-5.90); RDW 15.8 % (11.5-15.5); WBC 2.8 k/uL (3.8-10.6)
[2023-11-03 06:25] LABS: African American GFR (CKD) >90 (>60 ml/min/1.73 sqM); Anion Gap 2 mmol/L; Blood Urea Nitrogen 12 mg/dL (9-20); Calcium 8.8 mg/dL (8.4-10.2); Carbon Dioxide 28 mmol/L (22-30); Chloride 108 mmol/L (98-107); Glucose 103 mg/dL (74-99); Non-African American GFR(CKD) 86 (>60 ml/min/1.73 sqM); Potassium 3.5 mmol/L (3.5-5.1); Sodium 138 mmol/L (137-145)
[2023-11-03] MEDS: POTASSIUM CHLORIDE ER 20 MEQ TAB.ER PO SCH (08:34)
--- NOTE | 2023-11-03 09:17 | P.PN ---
Subjective HISTORY OF PRESENTING ILLNESS Patient is a 73-year-old male who presented on 10/28/2023 with chest pain and weakness. He had troponins 0.058, 0.059, 0.061 initially. EKG showed atrial fibrillation. While in the emergency department he received Ativan, became somnolent, and was subsequently intubated for airway protection and respiratory support. Past medical history significant for atrial fibrillation with controlled ventricular rate maintained on Eliquis, hypertension, cardiomyopathy, mitral regurgitation. Patient was successfully extubated yesterday. Patient able to respond to yes/no questions but not able to vocalize. He is currently in Afib with a HR in the 90-100s up to 120s and BP of 90s- 100s/60s. Not currently on Cardizem. Echo revealed LV EF 20%, severe biatrial dilatation, trace mitral regurgitation, and moderate tricuspid regurgitation. ROS performed. Pertinent positives and negatives discussed above, a complete re view of systems was performed and all the other systems were negative. 10/31 Patient seen and examined. Patient still somewhat confused however answering questions appropriately. Denies any chest pain or pressure. Does have a one-to-one sitter. He did fail his swallow evaluation and therefore has been nothing by mouth however is taking medications with applesauce. He is receiving IV fluids at 75 mL per hour. Blood pressures 100 to 130 systolic and arterial line due to be discontinued today with patient being transferred out of ICU. Creatinine improved to 1.1 today. 11/01 patient seen and examined. Patient still confused and sundowning. He states he feels tired and has been unable to sleep. He does know he is at [facility]. He does admit to some vague chest pain. Not associated with any shortness breath. Still receiving IV fluids at 75 mL per hour. He also states he is feeling cold however no fevers or chills. 11/02 Seen and examined. Patient still failing swallow eval. On D5 W at 75 mL/h. Concentrated urine output. Losartan was held secondary to borderline hypotension and metoprolol was also held secondary hypotension. PHYSICAL EXAMINATION Vital signs reviewed. CONSTITUTIONAL: No apparent distress, poor historian HEENT: Head is normocephalic. Pupils are equal, round. Sclerae anicteric. Mucous membranes of the mouth are moist. No JVD. No carotid bruit. CHEST EXAMINATION: Lungs are clear to auscultation. No chest wall tenderness is noted on palpation or with deep breathing. HEART EXAMINATION: Irregular rate and rhythm. S1, S2 heard. No murmurs, gallops or rub. ABDOMEN: Soft, nontender. Positive bowel sounds. EXTREMITIES: 2+ peripheral pulses, no lower extremity edema and no calf tenderness. NEUROLOGIC EXAMINATION: Patient is awake, alert and oriented x3. 1. HFrEF, acute on chronic; LV EF 20% per echo 10/29/2023 - significant decrease from 02/03/2020. 2. Persistent A-fib with controlled ventricular rate. Maintained on Eliquis. 3. Encephalopathy, metabolic. 4. History of hypertension. 5. EtOH abuse. 6. History of CVA/TIA. 7. History of myocardial infarction. Plan: Decrease dose of losartan 12.5 mg PO daily given hypotension, borderline blood pressures. Decrease dose of metoprolol tartrate 12.5mg PO twice daily. Continue Eliquis. Continue with heart failure regimen of losartan and metoprolol as tolerated. no further episodes of chest pain and troponin was normal. Blood pressure is borderline and therefore decreased dose of losartan and metoprolol. Has not been receiving any oral intake and give 500 mL bolus with borderline blood pressures. Does not currently appear volume overloaded. Objective - Vital Signs Vital signs: Vital Signs Temp 96.6 F L 11/03/23 08:00 Pulse 89 11/03/23 08:28 Resp 20 11/03/23 08:00 BP 92/68 11/03/23 08:00 Pulse Ox 97 11/03/23 08:04 FiO2 4 11/02/23 12:00 Intake & Output 11/02/23 11/03/23 11/03/23 18:59 06:59 18:59 Intake Total 375 1275 Output Total 300 675 Balance 75 600 Intake: IV 375 1275 Dextrose 5%-Lactated 375 1275 Ringers 1,000 ml @ 75 mls /hr IV .[id number] [facility] Rx#: [id number] Output: Urine 300 675 Other: Voiding Method Indwelling Catheter Indwelling Catheter ABP, PAP, CO, CI - Last Documented Arterial Blood Pressure 97/45 - Labs CBC & Chem 7: 11/03/23 05:21 11/03/23 05:21 Labs: Abnormal Lab Results - Last 24 Hours (Table) 11/03/23 11/03/23 Range/Units 05:21 05:21 WBC 2.8 L (3.8-10.6) k/uL RBC 3.66 L (4.30-5.90) m/uL Hgb 11.2 L (13.0-17.5) gm/dL Hct 35.2 L (39.0-53.0) % RDW 15.8 H (11.5-15.5) % Plt Count 106 L (150-450) k/uL Chloride 108 H (98-107) mmol/L Glucose 103 H (74-99) mg/dL
[2023-11-03] MEDS: SODIUM CHLORIDE 0.9% 500 ML 500 ML IV ONE (09:35)
--- NOTE | 2023-11-03 10:00 | P.PN ---
Subjective Progress Note Date: 11/03/23 Principal diagnosis: Respiratory failure. Pulmonary consult dated October 28, 2023. This is a 73-year-old male who presented to the emergency department, on October 27, shortly after 12 AM. The patient came in with multiple complaints including chest pain, and weakness. Apparently, the patient has been living in squalid conditions at home, and was unable to take care of his animals, including a dog and a cat, and his living condition apparently has been significant for him. He apparently has not gotten out of bed for 3 to 4 days, according to the ER shreya. We were asked to see the patient because of pleural effusion. We saw the patient down in the emergency department, room #8. The patient was very lethargic and somnolent, having received Ativan recently, because of concerns of alcohol withdrawal syndrome. The patient was on O2 at 3 L. He was found to have a left-sided pleural effusion, and atrial fibrillation, he was placed on Cardizem at 5 mg an hour. The patient apparently has a history of CVA, atrial fibrillation, gastroesophageal reflux disease, myocardial infarction, hypertension, and is a smoker, and drinks heavily. Current labs include a white count 5.2, hemoglobin 13.6, hematocrit 42.3, and a normal platelet count. PT was 13.3 with an INR of 1.3. Blood gases showed a pO2 of 87, pCO2 of 45, and a pH of 7.28. Sodium 141, potassium 3.9, chlorides 106, CO2 25, anion gap 10, BUN 16, creatinine 1.43. The patient's troponin was 0.061. N-terminal proBNP was 22,700. The patient's TSH was 19. Albumin was 3.4. Urine showed trace protein, trace blood, rare sediment. Serum alcohol was less than 10. Brain CT showed nothing acute. Initial chest x-ray showed a large left pleural effusion. CT angiogram was negative for pulmonary embolism, and showed primarily volume overload, with ascites, and pleural effusion. CT of the abdomen showed moderate left renal hydronephrosis, volume overload, and a cirrhotic liver among other things. Ultrasound of the left chest reveals a 9.1 cm pocket of fluid on the left side, with nothing on the right side. The patient continued to receive Ativan in the emergency department, and became so somnolent, he essentially had near respiratory arrest, and was electively intubated, for airway protection and respiratory support. His post intubation chest x-ray showed a properly placed endotracheal tube. Progress note dated October 29, 2023. The patient is seen today in room 252. He remains on the mechanical ventilator. He was intubated yesterday, for impending respiratory failure, lethargy, and somnolence. Current ventilator settings include volume assist-control, rate 16, tidal volume 450, FiO2 50%, and PEEP of 5. Blood gases show pO2 71, pCO2 of 34, and a pH of 7.47. Currently, the patient is on saline at 10 cc an hour and propofol at 20 mcg/kg/min. He had an uneventful night according to the nurses. White count 6.2, hemoglobin 12.4, hematocrit 38.6, platelet count 138,000. Sodi um 140, potassium 2.6, chlorides 109, CO2 22, anion gap 9, BUN 14, creatinine 1.22. Glucose 101. Calcium 8.3. Albumin 2.6. Chest x-ray suggest fluid overload/CHF, and a large left-sided pleural effusion. Progress note dated October 30, 2023. The patient is seen today again in room 252. He remains on the mechanical ventilator. The patient did have a daily interruption of sedation yesterday, with an attempted spontaneous breathing trial, but he did poorly. He remains on volume assist-control, rate 16, tidal volume 450, FiO2 50%, PEEP of 5. Blood gases show pO2 of 83, pCO2 of 38, pH of 7.50. Venous blood gases are consistent with a metabolic alkalosis. His metabolic alkalosis is likely secondary to hypokalemia, and diuretic induced volume contraction. The patient is on propofol at 30 mcg/kg/min, saline at 20 cc an hour, and vital AF 1.2 at 40 with a goal of 50 cc an hour. After his potassium is corrected, the patient will have another attempt at weaning. White count is 6.7, hemoglobin 12.1, hematocrit 36.7, platelet count 140,000. Sodium 134, potassium 3.3, chlorides 105, CO2 27, BUN 14, creatinine 1.22. Glucose is 147. Calcium 8.1. Sputum sampling is negative for pending. Chest x-ray continues to show bilateral pleural effusions, and mild volume overload. Progress note dated October 31, 2023. The patient is seen today in room 252. The patient was extubated successfully yesterday, October 29. Currently, he is on 6 L of oxygen. He is getting saline at 10 cc an hour. He still a bit lethargic. Other than that, he had an uneventful night according to the nurses. Current laboratory data includes a white count 7.7, hemoglobin 12.2, hematocrit 38, and a platelet count of 144,000. Sodium 139, potassium 4.1, chlorides 104, CO2 29, BUN 17, creatinine 1.35. Glucose 103. Calcium is 8.6. Procalcitonin level 0.42. Sputum from October 27, shows evidence of Staphylococcus aureus. Chest x-ray shows opacification, in both lungs, left greater than right. There appears to be a left-sided pleural effusion. There may be a small effusion on the right. Progress note dated November 01, 2023. 73-year-old male seen again in room 252. The patient continues on oxygen at 4 L. He is getting saline at 5 cc an hour, which will be converted to D5 with lactated Ringer's at 75 cc an hour. The sputum sample was positive for oxacillin sensitive Staphylococcus aureus. We placed him on Levaquin 500 mg a day. I am going to discontinue all of the Ativan as it may be causing his mental status not to be as sharp. Labs include a white count 5.1, hemoglobin 11.7, hematocrit 36.8, platelet count 121,000. Sodium 140, potassium 3.7, chloride 98, CO2 28, BUN 18, creatinine 1.13. Calcium is 8.7. Chest x-ray shows a left-sided pleural effusion, and bilateral midlung infiltrates, as well as mild pulmonary edema. Progress note dated November 02, 2023. 73-year-old male seen today in room 252. The patient is currently on 4 L oxygen. He is getting dextrose with lactated Ringer's at 75 cc an hour. The patient was agitated through the night, and Haldol, was given once, but did not seem to help. Today we add Seroquel, 25 mg 3 times a day. Will also add a ni cotine patch. Current laboratory data includes a white count 4, hemoglobin 11.5, hematocrit 36.2, and a platelet count of 133,000. Sodium 135, potassium 4, chlorides 107, CO2 27, BUN 16, creatinine 0.93. Troponin 0.026. Calcium 8.9. Glucose 109. Sputum revealed evidence of oxacillin sensitive Staph aureus. The patient was started on Levaquin. Progress note dated November 03, 2023. 73-year-old male seen today in room 252. The patient continues on nasal O2 at 3 L. He is getting dextrose for lactated Ringer's at 75 cc an hour. He continues on oral Levaquin. The patient can be discharged from the intensive care unit. He has been very stable. Intermittent periods of brief agitation. He seems to be doing better on Seroquel. White count 2.8, hemoglobin 11.2, hematocrit 35.2, platelet count 106,000. Sodium 138, potassium 3.5, chlorides 108, CO2 28, BUN 12, creatinine 0.90. Glucose is 93. Calcium is 8.8. Objective - Vital Signs Vital signs: Vital Signs Temp 96.6 F L 11/03/23 08:00 Pulse 89 11/03/23 08:28 Resp 20 11/03/23 08:00 BP 92/68 11/03/23 08:00 Pulse Ox 97 11/03/23 08:04 FiO2 4 11/02/23 12:00 Intake & Output 11/02/23 11/03/23 11/03/23 18:59 06:59 18:59 Intake Total 375 1275 Output Total 300 675 Balance 75 600 Intake: IV 375 1275 Dextrose 5%-Lactated 375 1275 Ringers 1,000 ml @ 75 mls /hr IV .[id number] [facility] Rx#: [id number] Output: Urine 300 675 Other: Voiding Method Indwelling Catheter Indwelling Catheter ABP, PAP, CO, CI - Last Documented Arterial Blood Pressure 97/45 - Exam No acute distress, extubated, currently on 3 L nasal cannula. HEENT examination is grossly unremarkable. Neck supple. Full range of motion. No adenopathy thyromegaly or neck vein distention. Cardiovascular examination reveals regular rhythm rate. S1-S2 normal. No S3 or S4. No discernible murmur noted. Heart sounds are distant. Heart rate 89 bpm. Lungs reveal scattered rhonchi and crackles. No wheezes. Breath sounds equal. Saturations are 97% on 3 L nasal cannula. Abdomen soft bowel sounds are heard. No masses or tenderness. Extremities are intact. No cyanosis clubbing or edema. Skin is without rash or lesion. Neurologic examination is brief, but nonfocal. - Labs CBC & Chem 7: 11/03/23 05:21 11/03/23 05:21 Labs: Abnormal Lab Results - Last 24 Hours (Table) 11/03/23 11/03/23 Range/Units 05:21 05:21 WBC 2.8 L (3.8-10.6) k/uL RBC 3.66 L (4.30-5.90) m/uL Hgb 11.2 L (13.0-17.5) gm/dL Hct 35.2 L (39.0-53.0) % RDW 15.8 H (11.5-15.5) % Plt Count 106 L (150-450) k/uL Chloride 108 H (98-107) mmol/L Glucose 103 H (74-99) mg/dL Assessment and Plan Assessment: Respiratory compromise/failure, secondary to Ativan administration, requiring intubation and mechanical ventilation, October 28, 2023. S/P extubation, on October 30, 2023. Oxacillin sensitive Staphylococcus aureus tracheobronchitis/bronchopneumonia. Left-sided pleural effusion. History of CVA. History of atrial fibrillation. Metabolic alkalosis, secondary to hypokalemia, and diuretic-induced volume contraction. Hypothyroidism. Gastroesophageal reflux disease. History of myocardial infarction. History of hypertension. History of ongoing tobacco use. History of chronic alcohol abuse. Plan: Plan dated October 28, 2023. After we saw the patient in the emergency department, the patient continued to receive Ativan, and apparently his respiratory status declined even further, and the patient required intubation and mechanical ventilation, which took place in the emergency department. I was notified of this, from my charge nurse Vilma. The patient will be excepted into the intensive care unit. Additional recommendations and suggestions are forthcoming. Labs, x-rays, medications are reviewed. Prognosis is guarded. Additional recommendations and suggestions are forthcoming, and the patient's overall prognosis remains guarded as mentioned above. Plan dated October 29, 2023. The patient will have a daily interruption of sedation, and a spontaneous breathing trial. The patient was placed on pressure support of 5, and CPAP of 5. In addition, because his TSH is still high, the patient will get Synthroid 100 mcg IV push, beginning today. Labs, x-rays, and all medications are reviewed. We will continue to follow the patient, make recommendations along the way. Yesterday, a left subclavian central line was placed, along with a right radial art line. Additional recommendations and suggestions are forthcoming. Prognosis is guarded. Plan dated October 30, 2023. The patient's potassium will be corrected. The patient will not get any more Lasix at this time. The patient will have another daily interruption of sedation, and spontaneous breathing trial. Labs, x-rays, and medications are all reviewed. Additional recommendations and suggestions are forthcoming. We will continue to follow the patient. The patient's overall prognosis remains guarded. He remains critically ill. He remains on GI and DVT prophylaxis. Plan dated October 31, 2023. The patient is seen today in room 252. The patient was extubated yesterday. He continues on oxygen at 6 L. He is getting saline at 10 cc an hour. Labs, x- rays, and medications are reviewed. The sputum from the is showing evidence of Staphylococcus aureus. Unfortunately, I cannot open, to see the sensitivities, and whether or not this is a oxacillin sensitive or oxacillin resistant staph. The patient will stay in the ICU for now. No additional recommendations are made. He is a heavy drinker. Drinks quite a bit of rum every day with Coke. The patient's overall prognosis remains guarded. The patient is not ready to be discharged out of the intensive care unit. His situation is still critical. Plan dated November 01, 2023. All of the patient's Ativan is discontinued for the time being. The patient is currently going to be placed on Levaquin, for his oxacillin sensitive Staphylococcus aureus tracheobronchitis/bronchopneumonia. The patient did not do well on his swallow evaluation, so we will change his IV to D5 with lactated Ringer's at 75 cc an hour. Labs, x-rays, and medications are all reviewed. We will continue to follow the patient, make recommendations along the way. Prognosis is guarded. Plan dated November 02, 2023. The patient is seen today in room 252. A sitter is in the room. The patient is currently sleeping. The patient was agitated through the night. He received Haldol only 1 time. A nicotine patch is added, at 14 mg a day. We also add Seroquel 25 mg 3 times a day. Labs, x-rays, medications are reviewed. The patient is on dextrose with lactated Ringer's at 75 cc an hour. He failed his swallowing evaluation, but he is able to take pills by mouth. We will continue to follow the patient, and make recommendations along the way. Plan dated November 03, 2023. The patient appears to be doing relatively well. The patient is seen today in room 252. He has been weaned down to 3 L nasal cannula. He continues on IV's of dextrose and LR at 75 cc an hour. He continues on oral Levaquin. The patient can be discharged from the intensive care unit. He does have mild and intermittent episodes of agitation, seemingly better on Seroquel. No additional recommendations are made. Prognosis is guarded. We will continue to follow the patient, and make recommendations where appropriate. Time with Patient: Less than 30
[2023-11-03 12:45] LABS: Glucose,Whole Blood 104 mg/dL (70-110)
[2023-11-03] MEDS: METOPROLOL TARTRATE 12.5 MG TAB PO STA (18:27)
[2023-11-03] MEDS: SODIUM CHLORIDE 0.9% 500 ML 250 ML IV ONE (18:27)
[2023-11-03 18:57] LABS: Glucose,Whole Blood 74 mg/dL (70-110)
[2023-11-03] MEDS: METOPROLOL TARTRATE 12.5 MG TAB PO SCH (21:26)
--- NOTE | 2023-11-03 22:20 | P.PN ---
Subjective 73-year-old male who presented to the emergency department via EMS with reports from the emergency department that patient was altered and debilitated in his living situation at home is very unkempt including multiple animals who appear malnourished and on care for as well. Unsure of last primary care provider and any compliance to follow-up in the outpatient setting. Per medical record patient does have a history of atrial fibrillation with documented medication refills by crown and bridge technician Dr. Moralez earlier this year, history of CVA/TIA, GERD, hypertension, previous myocardial infarction, former smoker and significant daily EtOH use. Patient was admitted initially to [facility] for altered mental status with acute NSTEMI and weakness with debility, possible alcohol withdrawal and atrial fibrillation uncontrolled with RVR. EKG showed atrial fibrillation with RVR and heart rate was 105, brain CT was performed showing no acute hemorrhage hydrocephalus or mass effect. Chest x-ray showed severe left pleural effusion with cardiomegaly. Patient was started on CIWA protocol and also 2 to 3 L via nasal cannula. Patient did undergo CT angio of the chest with no evidence of PE within the pulmonary outflow tract or immediate proximal branches , significant sequela of volume overload with mesenteric ascites and pleural effusions with cirrhotic morphology of the liver and cardiomegaly. Chest ultrasound was performed and left side was marked for possible thoracentesis. The left pleural effusion pocket size is 9.1 cm. Labs reviewed and patient had a normal white count of 5.2, hemoglobin was 13.6, platelets 176, INR 1.3, ABG showed a low pH of 7.28 O2 saturation was 95%. Sodium was 141 with a potassium of 3.9, BUN 16, creatinine mildly elevated at 1.43. Initial lactic acid was 2.1 and repeat remained the same and patient did receive a liter of fluids while in the ER and was continued on normal saline at a rate of 130 mL/h. Later patient did have a BNP drawn which significantly elevated at 22,700. TSH also found to be abnormal at 19 although free T4 was normal at 1.32. Albumin was 3.4. Urinalysis was done and negative and serum alcohol was noted to be less than 10. Troponins were also mildly elevated at 0.061 and trending up. Patient noted to be restless per nursing staff in the ER and was given an additional dose of Valium along with Ativan and then became obtunded and nonresponsive and ultimately required mechanical ventilation to protect airway. Patient is now admitted to the ICU and is being started on Lasix. Cardizem was initiated as well and patient has since converted and Cardizem has been placed on hold. Cardiac/pulmonary have been consulted. Patient is currently intubated with an FiO2 of 100% and PEEP of 5 maintaining oxygen saturations above 90%. ----Patient was successfully extubated yesterday. Patient able to respond to yes/no questions but not able to vocalize. He is currently in Afib with a HR in the 90-100s up to 120s and BP of 90s- 100s/60s. Not currently on Cardizem. Echo revealed LV EF 20%, severe biatrial dilatation, trace mitral regurgitation, and moderate tricuspid regurgitation. Current laboratory data includes a white count 7.7, hemoglobin 12.2, hematocrit 38, and a platelet count of 144,000. Sodium 139, potassium 4.1, chlorides 104, CO2 29, BUN 17, creatinine 1.35. Glucose 103. Calcium is 8.6. Procalcitonin level 0.42. Sputum from October 27, shows evidence of Staphylococcus aureus. Chest x-ray shows opacification, in both lungs, left greater than right. There appears to be a left-sided pleural effusion. 11/01/2023 Patient is seen and evaluated in room at bedside; was extubated successfully yesterday, October 29. Currently, he is on 6 L of oxygen. He is getting saline at 10 cc an hour. He still a bit lethargic. Other than that, he had an uneventful night according to the nurses. Lab review shows a white count 7.7, hemoglobin 12.2, hematocrit 38, and a platelet count of 144,000. Sodium 139, potassium 4.1, chlorides 104, CO2 29, BUN 17, creatinine 1.35. Glucose 103. Calcium is 8.6. Procalcitonin level 0.42. Sputum from October 27, shows evidence of Staphylococcus aureus. Chest x- ray shows opacification, in both lungs, left greater than right. There appears to be a left-sided pleural effusion. There may be a small effusion on the right. Patient remains in ICU-plan is to start patient on antibiotic once final culture reports are available 11/02/2023 Patient remains in ICU; and evaluated with sitter at bedside; patient was agitated yesterday evening and through the night; received Haldol which did not help; Seroquel has been added 25 mg 3 times daily -- currently on 4 L oxygen. He is getting dextrose with lactated Ringer's at 75 cc an hour. The patient was agitated through the night, and Haldol, was given once, but did not seem to help. Today we add Seroquel, 25 mg 3 times a day. -- Current laboratory data includes a white count 4, hemoglobin 11.5, hematocrit 36.2, and a platelet count of 133,000. Sodium 135, potassium 4, chlorides 107, CO2 27, BUN 16, creatinine 0.93. Troponin 0.026. Calcium 8.9. Glucose 109. Sputum revealed evidence of oxacillin sensitive Staph aureus. The patient was started on Levaquin. 11/02 Patient is sleeping this morning, he did not sleep well last night He is currently on 3 L oxygen via nasal cannula Getting D5 Ringer lactate at 75 mL/h A plan to undergo swallow evaluation today with the expectation he would pass it Yeung catheter in place with small amount of dark-colored urine, creatinine 0.9 Cozaar was held today because of borderline hypotension with systolic blood pressure was 98 there is a Sitter at bedside and patient remains lethargic Objective - Vital Signs Vital signs: Vital Signs Temp 97.4 F L 11/03/23 00:00 Pulse 87 11/03/23 08:04 Resp 20 11/03/23 04:00 BP 86/55 11/03/23 04:00 Pulse Ox 97 11/03/23 08:04 FiO2 4 11/02/23 12:00 Intake & Output 11/02/23 11/03/23 11/03/23 18:59 06:59 18:59 Intake Total 375 1275 Output Total 300 675 Balance 75 600 Intake: IV 375 1275 Dextrose 5%-Lactated 375 1275 Ringers 1,000 ml @ 75 mls /hr IV .[id number] [facility] Rx#: [id number] Output: Urine 300 675 Other: Voiding Method Indwelling Catheter Indwelling Catheter ABP, PAP, CO, CI - Last Documented Arterial Blood Pressure 97/45 - Exam -GENERAL: The patient is weak and lethargic. No acute distress HEENT: Pupils are round and equally reacting to light. EOMI. No scleral icterus. No conjunctival pallor. Normocephalic, atraumatic. No pharyngeal erythema. No thyromegaly. CARDIOVASCULAR: S1 and S2 present. No murmurs, rubs, or gallops. PULMONARY: Chest is clear to auscultation, no wheezing , no crackles. ABDOMEN: Soft, nontender, nondistended, normoactive bowel sounds. No palpable organomegaly. MUSCULOSKELETAL: No joint swelling or deformity. EXTREMITIES: No cyanosis, clubbing, or pedal edema. NEUROLOGICAL: Gross neurological examination did not reveal any focal deficits. SKIN: No rashes. no petechiae. - Labs CBC & Chem 7: 11/03/23 05:21 11/03/23 21:09 Labs: Abnormal Lab Results - Last 24 Hours (Table) 11/03/23 11/03/23 Range/Units 05:21 05:21 WBC 2.8 L (3.8-10.6) k/uL RBC 3.66 L (4.30-5.90) m/uL Hgb 11.2 L (13.0-17.5) gm/dL Hct 35.2 L (39.0-53.0) % RDW 15.8 H (11.5-15.5) % Plt Count 106 L (150-450) k/uL Chloride 108 H (98-107) mmol/L Glucose 103 H (74-99) mg/dL Assessment and Plan 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 Tracheobronchitis on Levaquin Large left pleural effusion with a BNP of 22,000 Elevated troponin, unsure of NSTEMI, possibly type II mismatch History of atrial fibrillation, currently atrial fibrillation with rapid ventricular rate started on Cardizem History of CVA/TIA with no residual effects in 2006 History of myocardial infarction in 2019 History of GERD History of hypertension Stage II pressure ulcer of the left buttock, present on admission Unstageable pressure ulcer of the right buttock, present on admission Former smoker Heavy daily alcohol use and drinks about a pint of rum per day Poor social support and poor living situation Noncompliance to medication and follow-up Plan: Plan: Continue with Levaquin Continue with home dose of Eliquis 5 mg Getting gentle hydration Continue on oxygen and wean as needed Pulmonary/critical care team following closely Patient is medically stable to be transferred out of the ICU GI prophylaxis DVT prophylaxis Full code
[2023-11-03 23:56] LABS: Glucose,Whole Blood 119 mg/dL (70-110)
[2023-11-04 07:11] LABS: Glucose,Whole Blood 85 mg/dL (70-110)
[2023-11-04] MEDS: DEXTROSE 5%-LACTATED RINGERS 1,000 ML IV SCH (08:00)
--- NOTE | 2023-11-04 08:56 | P.PN ---
Subjective Progress Note Date: 11/04/23 The patient is a 73-year-old male who is currently admitted to the hospital with heart failure and persistent atrial fibrillation. Patient is now rate controlled on her current medication regimen and is more alert. Patient states he is yet to be up and ambulating around the room, but no longer has shortness of breath at rest. He denies any chest pain or chest pressure. GENERAL: Well-appearing, well-nourished and in no acute distress. NECK: Supple without JVD or thyromegaly. LUNGS: Breath sounds clear to auscultation bilaterally. Respiration equal and unlabored. No wheezes, rales or rhonchi. HEART: Irregular rate and rhythm without murmurs, rubs or gallops. S1 and S2 heard. EXTREMITIES: Normal range of motion, no edema. No clubbing or cyanosis. Peripheral pulses intact and strong. TELEMETRY: Rate controlled atrial fibrillation overnight IMPRESSION: HFrEF, acute on chronic; LV EF 20% per echo 10/29/2023 - significant decrease from 02/03/2020. Persistent A-fib with controlled ventricular rate. Maintained on Eliquis. Encephalopathy, metabolic. History of hypertension. EtOH abuse. History of CVA/TIA. History of myocardial infarction. PLAN: Continue to hold Midordine for SBP >100 and wean off as tolerated Continue metoprolol and losartan Patient may be downgraded to stepdown unit from the cardiac standpoint I am dictating on behalf of Dr Ja Duff's history/physical and ass essment/plan. Objective - Vital Signs Vital signs: Vital Signs Temp 97.4 F L 11/03/23 20:00 Pulse 82 11/04/23 08:14 Resp 21 11/04/23 04:00 BP 105/81 11/04/23 04:00 Pulse Ox 99 11/04/23 08:04 FiO2 4 11/02/23 12:00 Intake & Output 11/03/23 11/04/23 11/04/23 18:59 06:59 18:59 Intake Total 1100 1075 Output Total 150 100 Balance 950 975 Weight 86.7 kg Intake: IV 1100 1075 Dextrose 5%-Lactated 600 825 Ringers 1,000 ml @ 75 mls /hr IV .[id number] [facility] Rx#: [id number] Sodium Chloride 0.9% 500 500 250 ml 500 ml @ 999 mls/hr IV .Q31M [facility] Rx#:[id number] Output: Urine 150 100 Other: Voiding Method Indwelling Catheter Indwelling Catheter ABP, PAP, CO, CI - Last Documented Arterial Blood Pressure 97/45 - Labs CBC & Chem 7: 11/03/23 05:21 11/03/23 21:09 Labs: Abnormal Lab Results - Last 24 Hours (Table) 11/03/23 11/03/23 Range/Units 21:09 23:55 Potassium 5.5 H (3.5-5.1) mmol/L POC Glucose (mg/dL) 119 H (70-110) mg/dL
--- NOTE | 2023-11-04 09:50 | XR ---
EXAMINATION TYPE: XR chest 1V DATE OF EXAM: 11/04/2023 COMPARISON: 11/01/2023 HISTORY: Shortness of breath TECHNIQUE: Single frontal view of the chest is obtained. FINDINGS: Bilateral consolidation and pleural effusion moderate to large size in the left stable. He art size enlarged may represent cardiomyopathy or pericardial effusion. No pneumothorax. Diffuse oste openia and degenerative change of the spine. IMPRESSION: Stable diffuse pleural parenchymal changes could represent CHF. Underlying pneumonia not excluded.
--- NOTE | 2023-11-04 10:26 | US ---
EXAMINATION TYPE: US kidneys/renal and bladder DATE OF EXAM: 11/04/2023 COMPARISON: CT 10/28/23, US 01/21/23 CLINICAL INDICATION: Male, 73 years old with history of left hydroneph; Left hydronephrosis. Hx stone s. EXAM MEASUREMENTS: Right Kidney: 10.9 x 5.2 x 5.6 cm Left Kidney: 10.2 x 5.2 x 5.6 cm Right Kidney: -Hyperechoic focus seen at mid: 0.5 x 0.3 x 0.4 cm Left Kidney: Hydronephrosis was seen. -Hyperechoic focus seen at mid: 0.3 x 0.4 x 0.3 cm. -Hyperechoic area seen lower pole: 1.8 x 1.6 x 1.5 cm. Bladder: Not seen. Bilateral Jets seen: No *Incidental findings: ascites seen in the RUQ. Appearance of left pleural effusion seen when imaging the left kidney/spleen. Ascites seen in bladder/pelvis area. IMPRESSION: 1. Bilateral nephrolithiasis with moderate left hydronephrosis. 2. Small amount of ascites. 3. Small pleural effusion.
[2023-11-04] MEDS: LOSARTAN 25 MG TAB PO SCH (11:00)
[2023-11-04] MEDS: FUROSEMIDE 10 MG/ML 2 ML VIAL IV SCH (11:21)
[2023-11-04 11:39] LABS: African American GFR (CKD) 87 (>60 ml/min/1.73 sqM); Anion Gap 4 mmol/L; Blood Urea Nitrogen 12 mg/dL (9-20); Calcium 8.7 mg/dL (8.4-10.2); Carbon Dioxide 28 mmol/L (22-30); Chloride 106 mmol/L (98-107); Glucose 96 mg/dL (74-99); Non-African American GFR(CKD) 75 (>60 ml/min/1.73 sqM); Potassium 4.1 mmol/L (3.5-5.1); Sodium 138 mmol/L (137-145)
[2023-11-04 11:53] LABS: HCT 37.6 % (39.0-53.0); HGB 12.1 gm/dL (13.0-17.5); Hypochromasia Slight; MCH 30.7 pg (25.0-35.0); MCHC 32.3 g/dL (31.0-37.0); MCV 95.2 fL (80.0-100.0); Mean Platelet Volume 9.8; Platelet Count 133 k/uL (150-450); RBC 3.95 m/uL (4.30-5.90); RDW 15.8 % (11.5-15.5); WBC 3.8 k/uL (3.8-10.6)
[2023-11-04 12:55] LABS: Eosinophils # (M) 0.27 k/uL (0-0.7); Lymphocytes # (M) 0.68 k/uL (1.0-4.8); Monocytes # (M) 0.19 k/uL (0-1.0); Neutrophils # (M) 2.66 k/uL (1.3-7.7); Neutrophils % (M) 70 %; Nucleated Red Blood Cells 0 /100 WBC (0-0); Total Cells Counted 100
--- NOTE | 2023-11-04 12:58 | P.PN ---
Subjective Progress Note Date: 11/04/23 Pulmonary consult dated October 28, 2023. This is a 73-year-old male who presented to the emergency department, on October 27, shortly after 12 AM. The patient came in with multiple complaints including chest pain, and weakness. Apparently, the patient has been living in squalid conditions at home, and was unable to take care of his animals, including a dog and a cat, and his living condition apparently has been significant for him. He apparently has not gotten out of bed for 3 to 4 days, according to the ER shreya. We were asked to see the patient because of pleural effusion. We saw the patient down in the emergency department, room #8. The patient was very lethargic and somnolent, having received Ativan recently, because of concerns of alcohol withdrawal syndrome. The patient was on O2 at 3 L. He was found to have a left-sided pleural effusion, and atrial fibrillation, he was placed on Cardizem at 5 mg an hour. The patient apparently has a history of CVA, atrial fibrillation, gastroesophageal reflux disease, myocardial infarction, hypertension, and is a smoker, and drinks heavily. Current labs include a white count 5.2, hemoglobin 13.6, hematocrit 42.3, and a normal platelet count. PT was 13.3 with an INR of 1.3. Blood gases showed a pO2 of 87, pCO2 of 45, and a pH of 7.28. Sodium 141, potassium 3.9, chlorides 106, CO2 25, anion gap 10, BUN 16, creatinine 1.43. The patient's troponin was 0.061. N-terminal proBNP was 22,700. The patient's TSH was 19. Albumin was 3.4. Urine showed trace protein, trace blood, rare sediment. Serum alcohol was less than 10. Brain CT showed nothing acute. Initial chest x-ray showed a large left pleural effusion. CT angiogram was negative for pulmonary embolism, and showed primarily volume overload, with ascites, and pleural effusion. CT of the abdomen showed moderate left renal hydronephrosis, volume overload, and a cirrhotic liver among other things. Ultrasound of the left chest reveals a 9.1 cm pocket of fluid on the l eft side, with nothing on the right side. The patient continued to receive Ativan in the emergency department, and became so somnolent, he essentially had near respiratory arrest, and was electively intubated, for airway protection and respiratory support. His post intubation chest x-ray showed a properly placed endotracheal tube. Progress note dated October 29, 2023. The patient is seen today in room 252. He remains on the mechanical ventilator. He was intubated yesterday, for impending respiratory failure, lethargy, and somnolence. Current ventilator settings include volume assist-control, rate 16, tidal volume 450, FiO2 50%, and PEEP of 5. Blood gases show pO2 71, pCO2 of 34, and a pH of 7.47. Currently, the patient is on saline at 10 cc an hour and propofol at 20 mcg/kg/min. He had an uneventful night according to the nurses. White count 6.2, hemoglobin 12.4, hematocrit 38.6, platelet count 138,000. Sodium 140, potassium 2.6, chlorides 109, CO2 22, anion gap 9, BUN 14, c reatinine 1.22. Glucose 101. Calcium 8.3. Albumin 2.6. Chest x-ray suggest fluid overload/CHF, and a large left-sided pleural effusion. Progress note dated October 30, 2023. The patient is seen today again in room 252. He remains on the mechanical ventilator. The patient did have a daily interruption of sedation yesterday, with an attempted spontaneous breathing trial, but he did poorly. He remains on volume assist-control, rate 16, tidal volume 450, FiO2 50%, PEEP of 5. Blood gases show pO2 of 83, pCO2 of 38, pH of 7.50. Venous blood gases are consistent with a metabolic alkalosis. His metabolic alkalosis is likely secondary to hypokalemia, and diuretic induced volume contraction. The patient is on propofol at 30 mcg/kg/min, saline at 20 cc an hour, and vital AF 1.2 at 40 with a goal of 50 cc an hour. After his potassium is corrected, the patient will have another attempt at weaning. White count is 6.7, hemoglobin 12.1, hematocrit 36.7, platelet count 140,000. Sodium 134, potassium 3.3, chlorides 105, CO2 27, BUN 14, creatinine 1.22. Glucose is 147. Calcium 8.1. Sputum sampling is negative for pending. Chest x-ray continues to show bilateral pleural effusions, and mild volume overload. Progress note dated October 31, 2023. The patient is seen today in room 252. The patient was extubated successfully yesterday, October 29. Currently, he is on 6 L of oxygen. He is getting saline at 10 cc an hour. He still a bit lethargic. Other than that, he had an unev entful night according to the nurses. Current laboratory data includes a white count 7.7, hemoglobin 12.2, hematocrit 38, and a platelet count of 144,000. Sodium 139, potassium 4.1, chlorides 104, CO2 29, BUN 17, creatinine 1.35. Glucose 103. Calcium is 8.6. Procalcitonin level 0.42. Sputum from October 27, shows evidence of Staphylococcus aureus. Chest x-ray shows opacification, in both lungs, left greater than right. There appears to be a left-sided pleural effusion. There may be a small effusion on the right. Progress note dated November 01, 2023. 73-year-old male seen again in room 252. The patient continues on oxygen at 4 L. He is getting saline at 5 cc an hour, which will be converted to D5 with lactated Ringer's at 75 cc an hour. The sputum sample was positive for oxacill in sensitive Staphylococcus aureus. We placed him on Levaquin 500 mg a day. I am going to discontinue all of the Ativan as it may be causing his mental status not to be as sharp. Labs include a white count 5.1, hemoglobin 11.7, hematocrit 36.8, platelet count 121,000. Sodium 140, potassium 3.7, chloride 98, CO2 28, BUN 18, creatinine 1.13. Calcium is 8.7. Chest x-ray shows a left-sided pleur al effusion, and bilateral midlung infiltrates, as well as mild pulmonary edema. Progress note dated November 02, 2023. 73-year-old male seen today in room 252. The patient is currently on 4 L oxyg en. He is getting dextrose with lactated Ringer's at 75 cc an hour. The patient was agitated through the night, and Haldol, was given once, but did not seem to help. Today we add Seroquel, 25 mg 3 times a day. Will also add a nicotine patch. Current laboratory data includes a white count 4, hemoglobin 11.5, hematocrit 36.2, and a platelet count of 133,000. Sodium 135, potassium 4, chlorides 107, CO2 27, BUN 16, creatinine 0.93. Troponin 0.026. Calcium 8.9. Glucose 109. Sputum revealed evidence of oxacillin sensitive Staph aureus. The patient was started on Levaquin. Progress note dated November 03, 2023. 73-year-old male seen today in room 252. The patient continues on nasal O2 at 3 L. He is getting dextrose for lactated Ringer's at 75 cc an hour. He continues on oral Levaquin. The patient can be discharged from the intensive care unit. He has been very stable. Intermittent periods of brief agitation. He seems to be doing better on Seroquel. White count 2.8, hemoglobin 11.2, hematocrit 35.2, platelet count 106,000. Sodium 138, potassium 3.5, chlorides 108, CO2 28, BUN 12, creatinine 0.90. Glucose is 93. Calcium is 8.8. On 11/04/2023, the patient is being seen for a follow-up. This morning, the patient is calm and comfortable, he denies having any new complaints. Is resting comfortably in bed. As mentioned earlier, the patient is status post acute hypoxic respiratory failure requiring intubation mechanical ventilation patient is currently off the Suboxone by nasal cannula. He does have MSSA in the sputum and the patient is covered with Levaquin accordingly. He is known to have systolic heart failure with impaired ejection fraction of 20%. He did have an acute kidney injury at time of admission and the renal function gradually improved and is currently normalized. Nevertheless, the CAT scan of the abdomen initially showed evidence of hydronephrosis and this needs to be further followed up. Based on that, ultrasound of the kidneys was ordered to assess for ongoing hydronephrosis. I reviewed his previous chest x-ray there was evidence of pleural effusion. This could be representing CHF. The follow-up chest x-ray is obviously needed to reevaluate for ongoing presence of pleural effusion specially on the left. For now, the patient is no diuretics. He is on IV fluids which is running at 75 cc an hour. He does have a stage I sacral decub ulcer which is being managed conservatively and the patient has an Optifoam in place. White circles of 3.8 with hemoglobin 12.1 and a platelet count of 133. BUN is 12 with a creatinine of 1.0. He remains in atrial fibrillation. Other comorbidities include hypertension, coronary artery disease with previous UT, hypothyroidism, and history of alcoholism. His mental status is stable for now. No evidence of any encephalopathy. He is awake and alert and communicating and answering questions appropriately. Objective - Vital Signs Vital signs: Vital Signs Temp 97.4 F L 11/03/23 20:00 Pulse 82 11/04/23 08:14 Resp 21 11/04/23 04:00 BP 105/81 11/04/23 04:00 Pulse Ox 99 11/04/23 08:04 FiO2 4 11/02/23 12:00 Intake & Output 11/03/23 11/04/23 11/04/23 18:59 06:59 18:59 Intake Total 1100 1075 Output Total 150 100 Balance 950 975 Weight 86.7 kg Intake: IV 1100 1075 Dextrose 5%-Lactated 600 825 Ringers 1,000 ml @ 75 mls /hr IV .[id number] [facility] Rx#: [id number] Sodium Chloride 0.9% 500 500 250 ml 500 ml @ 999 mls/hr IV .Q31M [facility] Rx#:[id number] Output: Urine 150 100 Other: Voiding Method Indwelling Catheter Indwelling Catheter ABP, PAP, CO, CI - Last Documented Arterial Blood Pressure 97/45 - Exam No acute distress, extubated, currently on 3 L nasal cannula. HEENT examination is grossly unremarkable. Neck supple. Full range of motion. No adenopathy thyromegaly or neck vein distention. Cardiovascular examination reveals regular rhythm rate. S1-S2 normal. No S3 or S4. No discernible murmur noted. Heart sounds are distant. The patient's rhythm is irregular consistent with atrial fibrillation. Lungs reveal scattered rhonchi and crackles. No wheezes. Breath sounds equal. Diminished breath sound lung bases specially on the left. Abdomen soft bowel sounds are heard. No masses or tenderness. Extremities are intact. No cyanosis clubbing or edema. Skin is without rash or lesion. Neurologic examination is brief, but nonfocal. - Labs CBC & Chem 7: 11/04/23 11:01 11/04/23 11:01 Labs: Abnormal Lab Results - Last 24 Hours (Table) 11/03/23 11/03/23 Range/Units 21:09 23:55 Potassium 5.5 H (3.5-5.1) mmol/L POC Glucose (mg/dL) 119 H (70-110) mg/dL Assessment and Plan Plan: Acute hypoxic respiratory compromise/failure, secondary to Ativan administration, requiring intubation and mechanical ventilation, October 28, 2023. Currentlt on 02 at 3 liters,, comfortable and respiratory status is stable. Suspect bilateral pleural effusion. The patient was extubated on 10/30/2023. Bilateral pleural effusions, left more than right Suspect bilateral pneumonia with ongoing consolidation of the left lung base. The sputum sample was positive for oxacillin sensitive Staphylococcus aureus tracheobronchitis/bronchopneumonia. Systolic heart failure , EF 20% MARK. recovered hydronephrosis Left renal hydronephrosis with transition point within the distal left ureter with a 1.8 cm mass Left-sided pleural effusion. History of CVA. History of atrial fibrillation. Metabolic alkalosis, secondary to hypokalemia, and diuretic-induced volume contraction. Hypothyroidism. Gastroesophageal reflux disease. History of myocardial infarction. History of hypertension. History of ongoing tobacco use. History of chronic alcohol abuse. Pressure ulcer in the sacrum, DTI Plan Keep the patient on oxygen 2 L minute nasal cannula Start the patient on Lasix 20 mg IV every 12 hours IV fluids to KVO Repeat chest x-ray from today and consider thoracentesis Obtain ultrasound of the kidneys to rule out hydronephrosis Provide the patient is status parameter Hold losartan and continue metoprolol for now Complete the course of Levaquin Will continue to follow
--- NOTE | 2023-11-04 17:12 | PCN ---
PROCEDURE NOTE PULMONARY/CRITICAL CARE PROCEDURE NOTE: PROCEDURE PERFORMED: Right radial arterial line. PREOPERATIVE DIAGNOSIS: Frequent blood draws and blood gas monitoring. POSTOPERATIVE DIAGNOSIS: Frequent blood draws and blood gas monitoring. HEADING AND PRIMING TOOL SETTER: Dr. Xiao. FIRST ASSISTED LIVING HOME DIRECTOR: Tiffanie Cedillo. A time-out was completed verifying correct patient, procedure, site, positioning, and implant(s) or special equipment if applicable. DESCRIPTION OF PROCEDURE: Km's test was performed to ensure adequate perfusion. The patient's right wrist was prepped and draped in sterile fashion. 1% Lidocaine was used to anesthetize the area. An 18G Arrow arterial line was introduced into the right radial artery. The catheter was threaded over the guide wire and the needle was removed with appropriate pulsatile blood return. Blood loss was minimal. The catheter was then sutured in place to the skin and a sterile dressing applied. Perfusion to the extremity distal to the point of catheter insertion was checked and found to be adequate. There was good blood return and waveform. The patient tolerated the procedure well. The catheter was sutured in place. A sterile dressing was applied by the nurse. There was no immediate complication. MMODL / IJN: [id number] /
--- NOTE | 2023-11-04 17:13 | PCN ---
PROCEDURE NOTE PULMONARY/CRITICAL CARE PROCEDURE NOTE: PROCEDURE PERFORMED: Left subclavian triple-lumen catheter. PREOPERATIVE DIAGNOSIS: Administration of fluids and pressors. POSTOPERATIVE DIAGNOSIS: Administration of fluids and pressors. HOSPITAL NURSE: Dr. Xiao. FIRST SHELL MOLD BONDING MACHINE OPERATOR: Dr. Tiffanie Cedillo. A time-out was completed verifying correct patient, procedure, site, positioning, and implant(s) or special equipment if applicable. DESCRIPTION OF PROCEDURE: The patient was placed in a dependent position appropriate for triple lumen catheter placement based on the vein to be cannulated. The patient's left shoulder was prepped and draped in sterile fashion. 1% Lidocaine was used to anesthetize the surrounding skin area. A triple lumen 9F Cordis catheter was introduced into the left subclavian vein using Seldinger technique. The catheter was threaded smoothly over the guide wire and appropriate blood return was obtained. Each lumen of the catheter was evacuated of air and flushed with sterile saline. The catheter was then sutured in place to the skin and a sterile dressing applied. Perfusion to the extremity distal to the point of catheter insertion was checked and found to be adequate. There was no immediate complication. The patient tolerated the procedure well. There was good blood return from all 3 ports. The catheter was sutured in place. Sterile dressing was applied by the nurse. A chest x-ray was ordered. The tip of catheter was seen at the junction of superior vena cava right atrium. Again on both procedures, there was informed consent and universal timeout. The patient's procedure took place in the patient's room. There was no immediate complication from either procedure. MMODL / IJN: [id number] /
[2023-11-04 17:36] LABS: Glucose,Whole Blood 96 mg/dL (70-110)
[2023-11-04 22:19] LABS: Glucose,Whole Blood 87 mg/dL (70-110)
[2023-11-05 06:12] LABS: African American GFR (CKD) 77 (>60 ml/min/1.73 sqM); Anion Gap 4 mmol/L; Blood Urea Nitrogen 13 mg/dL (9-20); Calcium 8.6 mg/dL (8.4-10.2); Carbon Dioxide 28 mmol/L (22-30); Chloride 104 mmol/L (98-107); Glucose 81 mg/dL (74-99); Non-African American GFR(CKD) 67 (>60 ml/min/1.73 sqM); Potassium 3.8 mmol/L (3.5-5.1); Sodium 136 mmol/L (137-145)
[2023-11-05 06:28] LABS: Glucose,Whole Blood 78 mg/dL (70-110)
--- NOTE | 2023-11-05 09:17 | P.PN ---
Subjective Progress Note Date: 11/05/23 The patient is a 73-year-old male who is currently admitted to the hospital with heart failure and persistent atrial fibrillation. Heart failure medications have been maximized over the course of his admission. Chest x-ray shows moderate to large size pleural effusion. According to the patient, he may undergo thoracentesis. Awaiting pulmonology progress note. He states he continues to feel better every day. He states he has gotten up and ambulated around the room with assistance. He still has shortness of breath if he exerts himself. No chest pain or pressure. GENERAL: Well-appearing, well-nourished and in no acute distress. NECK: Supple without JVD or thyromegaly. LUNGS: Breath sounds diminished to auscultation bilaterally. Respiration equal and unlabored. No wheezes, rales or rhonchi. HEART: Irregular rate and rhythm without murmurs, rubs or gallops. S1 and S2 heard. EXTREMITIES: Normal range of motion, no edema. No clubbing or cyanosis. Peripheral pulses intact and strong. TELEMETRY: Rate controlled atrial fibrillation overnight IMPRESSION: HFrEF, acute on chronic; LV EF 20% Persistent A-fib with controlled ventricular rate Encephalopathy, metabolic. History of hypertension. EtOH abuse. History of CVA/TIA. History of myocardial infarction. PLAN: Continue supportive treatment Continue to wean off of midodrine as tolerated Further recommendations based upon clinical course I am dictating on behalf of Dr Ja Duff's history/physical and assessment/plan. Objective - Vital Signs Vital signs: Vital Signs Temp 97.9 F 11/05/23 03:54 Pulse 90 11/05/23 07:35 Resp 18 11/05/23 04:00 BP 90/60 11/05/23 04:00 Pulse Ox 100 11/05/23 03:54 FiO2 4 11/02/23 12:00 Intake & Output 11/04/23 11/05/23 11/05/23 18:59 06:59 18:59 Intake Total 435 1015 Output Total 660 1575 Balance -225 -560 Weight 86.7 kg 86.5 kg Intake: IV 195 275 Dextrose 5%-Lactated 195 255 Ringers 1,000 ml @ 75 mls /hr IV .[id number] [facility] Rx#: [id number] Invasive Line 5 10 Invasive Line 6 10 Oral 240 740 Output: Urine 660 1575 Other: Voiding Method Indwelling Catheter Indwelling Catheter # Bowel Movements 1 ABP, PAP, CO, CI - Last Documented Arterial Blood Pressure 97/45 - Labs CBC & Chem 7: 11/04/23 11:01 11/05/23 05:26 Labs: Abnormal Lab Results - Last 24 Hours (Table) 11/04/23 11/05/23 Range/Units 11:01 05:26 RBC 3.95 L (4.30-5.90) m/uL Hgb 12.1 L (13.0-17.5) gm/dL Hct 37.6 L (39.0-53.0) % RDW 15.8 H (11.5-15.5) % Plt Count 133 L (150-450) k/uL Lymphocytes # (Manual) 0.68 L (1.0-4.8) k/uL Sodium 136 L (137-145) mmol/L
--- NOTE | 2023-11-05 10:50 | P.PN ---
Subjective 73-year-old male who presented to the emergency department via EMS with reports from the emergency department that patient was altered and debilitated in his living situation at home is very unkempt including multiple animals who appear malnourished and on care for as well. Unsure of last primary care provider and any compliance to follow-up in the outpatient setting. 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 Patient was admitted initially to [facility] for altered mental status with acute NSTEMI and weakness with debility, possible alcohol withdrawal and atrial fibrillation uncontrolled with RVR. EKG showed atrial fibrillation with RVR and heart rate was 105, brain CT was performed showing no acute hemorrhage hydrocephalus or mass effect. Chest x-ray showed severe left pleural effusion with cardiomegaly. Patient was started on CIWA protocol and also 2 to 3 L via nasal cannula. Patient did undergo CT angio of the chest with no evidence of PE within the pulmonary outflow tract or immediate proximal branches , significant sequela of volume overload with mesenteric ascites and pleural effusions with cirrhotic morphology of the liver and cardiomegaly. Chest ultrasound was performed and left side was marked for possible thoracentesis. The left pleural effusion pocket size is 9.1 cm. Labs reviewed and patient had a normal white count of 5.2, hemoglobin was 13.6, platelets 176, INR 1.3, ABG showed a low pH of 7.28 O2 saturation was 95%. Sodium was 141 with a potassium of 3.9, BUN 16, creatinine mildly elevated at 1.43. Initial lactic acid was 2.1 and repeat remained the same and patient did receive a liter of fluids while in the ER and was continued on normal saline at a rate of 130 mL/h. Later patient did have a BNP drawn which significantly elevated at 22,700. TSH also found to be abnormal at 19 although free T4 was normal at 1.32. Albumin was 3.4. Urinalysis was done and negative and serum alcohol was noted to be less than 10. Troponins were also mildly elevated at 0.061 and trending up. Patient noted to be restless per nursing staff in the ER and was given an additional dose of Valium along with Ativan and then became obtunded and nonresponsive and ultimately required mechanical ventilation to protect airway. Patient is now admitted to the ICU and is being started on Lasix. Cardizem was initiated as well and patient has since converted and Cardizem has been placed on hold. Cardiac/pulmonary have been consulted. Patient is currently intubated with an FiO2 of 100% and PEEP of 5 maintaining oxygen saturations above 90%. ----Patient was successfully extubated yesterday. Patient able to respond to yes/no questions but not able to vocalize. He is currently in Afib with a HR in the 90-100s up to 120s and BP of 90s- 100s/60s. Not currently on Cardizem. Echo revealed LV EF 20%, severe biatrial dilatation, trace mitral regurgitation, and moderate tricuspid regurgitation. Current laboratory data includes a white count 7.7, hemoglobin 12.2, hematocrit 38, and a platelet count of 144,000. Sodium 139, potassium 4.1, chlorides 104, CO2 29, BUN 17, creatinine 1.35. Glucose 103. Calcium is 8.6. Procalcitonin level 0.42. Sputum from October 27, shows evidence of Staphylococcus aureus. Chest x-ray shows opacification, in both lungs, left greater than right. There appears to be a left-sided pleural effusion. 11/01/2023 Patient is seen and evaluated in room at bedside; was extubated successfully yesterday, October 29. Currently, he is on 6 L of oxygen. He is getting saline at 10 cc an hour. He still a bit lethargic. Other than that, he had an uneventful night according to the nurses. Lab review shows a white count 7.7, hemoglobin 12.2, hematocrit 38, and a platelet count of 144,000. Sodium 139, potassium 4.1, chlorides 104, CO2 29, BUN 17, creatinine 1.35. Glucose 103. Calcium is 8.6. Procalcitonin level 0.42. Sputum from October 27, shows evidence of Staphylococcus aureus. Chest x- ray shows opacification, in both lungs, left greater than right. There appears to be a left-sided pleural effusion. There may be a small effusion on the right. Patient remains in ICU-plan is to start patient on antibiotic once final culture reports are available 11/02/2023 Patient remains in ICU; and evaluated with sitter at bedside; patient was agitated yesterday evening and through the night; received Haldol which did not help; Seroquel has been added 25 mg 3 times daily -- currently on 4 L oxygen. He is getting dextrose with lactated Ringer's at 75 cc an hour. The patient was agitated through the night, and Haldol, was given once, but did not seem to help. Today we add Seroquel, 25 mg 3 times a day. -- Current laboratory data includes a white count 4, hemoglobin 11.5, hematocrit 36.2, and a platelet count of 133,000. Sodium 135, potassium 4, chlorides 107, CO2 27, BUN 16, creatinine 0.93. Troponin 0.026. Calcium 8.9. Glucose 109. Sputum revealed evidence of oxacillin sensitive Staph aureus. The patient was started on Levaquin. 11/02 Patient is sleeping this morning, he did not sleep well last night He is currently on 3 L oxygen via nasal cannula Getting D5 Ringer lactate at 75 mL/h A plan to undergo swallow evaluation today with the expectation he would pass it Yeung catheter in place with small amount of dark-colored urine, creatinine 0.9 Cozaar was held today because of borderline hypotension with systolic blood pressure was 98 there is a Sitter at bedside and patient remains lethargic 11/04/23 pt is awake and alert and calm no chest pain , no dypnea no significant s/s of alcohol withdrawal vitals and labs are stable , currently he is on 4 l oxygen via nasal cannula on levaquin and RL at 75 ml per hours we will consult urology for his persistant hydronephrosis and ureteral mass 1.8 cm Objective - Vital Signs Vital signs: Vital Signs Temp 97.1 F L 11/04/23 08:00 Pulse 93 11/04/23 11:49 Resp 25 H 11/04/23 08:00 BP 101/81 11/04/23 08:00 Pulse Ox 99 11/04/23 08:04 FiO2 4 11/02/23 12:00 Intake & Output 11/03/23 11/04/23 11/04/23 18:59 06:59 18:59 Intake Total 1100 1075 Output Total 150 100 160 Balance 950 975 -160 Weight 86.7 kg Intake: IV 1100 1075 Dextrose 5%-Lactated 600 825 Ringers 1,000 ml @ 75 mls /hr IV [id number] Rx#: [id number] Sodium Chloride 0.9% 500 500 250 ml 500 ml @ 999 mls/hr IV .Q31M ONE Rx#:[id number] Output: Urine 150 100 160 Other: Voiding Method Indwelling Catheter Indwelling Catheter Indwelling Catheter ABP, PAP, CO, CI - Last Documented Arterial Blood Pressure 97/45 - Exam -GENERAL: The patient is weak and lethargic. No acute distress HEENT: Pupils are round and equally reacting to light. EOMI. No scleral icterus. No conjunctival pallor. Normocephalic, atraumatic. No pharyngeal erythema. No thyromegaly. CARDIOVASCULAR: S1 and S2 present. No murmurs, rubs, or gallops. PULMONARY: Chest is clear to auscultation, no wheezing , no crackles. ABDOMEN: Soft, nontender, nondistended, normoactive bowel sounds. No palpable organomegaly. MUSCULOSKELETAL: No joint swelling or deformity. EXTREMITIES: No cyanosis, clubbing, or pedal edema. NEUROLOGICAL: Gross neurological examination did not reveal any focal deficits. SKIN: No rashes. no petechiae. - Labs CBC & Chem 7: 11/04/23 11:01 11/05/23 05:26 Labs: Abnormal Lab Results - Last 24 Hours (Table) 11/03/23 11/03/23 Range/Units 21:09 23:55 Potassium 5.5 H (3.5-5.1) mmol/L POC Glucose (mg/dL) 119 H (70-110) mg/dL Assessment and Plan 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 Tracheobronchitis on Levaquin Large left pleural effusion with a BNP of 22,000 Elevated troponin, unsure of NSTEMI, possibly type II mismatch History of atrial fibrillation, currently atrial fibrillation with rapid ventricular rate started on Cardizem History of CVA/TIA with no residual effects in 2006 History of myocardial infarction in 2019 History of GERD History of hypertension Stage II pressure ulcer of the left buttock, present on admission Unstageable pressure ulcer of the right buttock, present on admission Former smoker Heavy daily alcohol use and drinks about a pint of rum per day Poor social support and poor living situation Noncompliance to medication and follow-up Plan: Plan: Continue with Levaquin Continue with home dose of Eliquis 5 mg Getting gentle hydration i told the pt about the ureteral mass and liver evidance of 1.5 cm and need to f/u closely , risks including cancers are explained for him and he verablized understanding and acceptance Continue on oxygen and wean as needed Pulmonary/critical care team following closely Patient is medically stable to be transferred out of the ICU GI prophylaxis DVT prophylaxis Full code
[2023-11-05] MEDS: metOLazone 5 MG TAB PO SCH (10:55)
[2023-11-05] MEDS: FUROSEMIDE 10 MG/ML 4 ML VIAL IV SCH (10:55)
[2023-11-05 11:22] LABS: Glucose,Whole Blood 110 mg/dL (70-110)
[2023-11-05] MEDS ORDERED: ONDANSETRON 4 MG/2 ML VIAL IVP PRN (15:08)
[2023-11-05] MEDS: ONDANSETRON 4 MG/2 ML VIAL IVP PRN (15:12)
[2023-11-05 16:08] LABS: Glucose,Whole Blood 101 mg/dL (70-110)
--- NOTE | 2023-11-05 19:09 | P.PN ---
Subjective Progress Note Date: 11/05/23 Pulmonary consult dated October 28, 2023. This is a 73-year-old male who presented to the emergency department, on October 27, shortly after 12 AM. The patient came in with multiple complaints including chest pain, and weakness. Apparently, the patient has been living in squalid conditions at home, and was unable to take care of his animals, including a dog and a cat, and his living condition apparently has been significant for him. He apparently has not gotten out of bed for 3 to 4 days, according to the ER srheya. We were asked to see the patient because of pleural effusion. We saw the patient down in the emergency department, room #8. The patient was very lethargic and somnolent, having received Ativan recently, because of concerns of alcohol withdrawal syndrome. The patient was on O2 at 3 L. He was found to have a left-sided pleural effusion, and atrial fibrillation, he was placed on Cardizem at 5 mg an hour. The patient apparently has a history of CVA, atrial fibrillation, gastroesophageal reflux disease, myocardial infarction, hypertension, and is a smoker, and drinks heavily. Current labs include a white count 5.2, hemoglobin 13.6, hematocrit 42.3, and a normal platelet count. PT was 13.3 with an INR of 1.3. Blood gases showed a pO2 of 87, pCO2 of 45, and a pH of 7.28. Sodium 141, potassium 3.9, chlorides 106, CO2 25, anion gap 10, BUN 16, creatinine 1.43. The patient's troponin was 0.061. N-terminal proBNP was 22,700. The patient's TSH was 19. Albumin was 3.4. Urine showed trace protein, trace blood, rare sediment. Serum alcohol was less than 10. Brain CT showed nothing acute. Initial chest x-ray showed a large left pleural effusion. CT angiogram was negative for pulmonary embolism, and showed primarily volume overload, with ascites, and pleural effusion. CT of the abdomen showed moderate left renal hydronephrosis, volume overload, and a cirrhotic liver among other things. Ultrasound of the left chest reveals a 9.1 cm pocket of fluid on the l eft side, with nothing on the right side. The patient continued to receive Ativan in the emergency department, and became so somnolent, he essentially had near respiratory arrest, and was electively intubated, for airway protection and respiratory support. His post intubation chest x-ray showed a properly placed endotracheal tube. Progress note dated October 29, 2023. The patient is seen today in room 252. He remains on the mechanical ventilator. He was intubated yesterday, for impending respiratory failure, lethargy, and somnolence. Current ventilator settings include volume assist-control, rate 16, tidal volume 450, FiO2 50%, and PEEP of 5. Blood gases show pO2 71, pCO2 of 34, and a pH of 7.47. Currently, the patient is on saline at 10 cc an hour and propofol at 20 mcg/kg/min. He had an uneventful night according to the nurses. White count 6.2, hemoglobin 12.4, hematocrit 38.6, platelet count 138,000. Sodium 140, potassium 2.6, chlorides 109, CO2 22, anion gap 9, BUN 14, c reatinine 1.22. Glucose 101. Calcium 8.3. Albumin 2.6. Chest x-ray suggest fluid overload/CHF, and a large left-sided pleural effusion. Progress note dated October 30, 2023. The patient is seen today again in room 252. He remains on the mechanical ventilator. The patient did have a daily interruption of sedation yesterday, with an attempted spontaneous breathing trial, but he did poorly. He remains on volume assist-control, rate 16, tidal volume 450, FiO2 50%, PEEP of 5. Blood gases show pO2 of 83, pCO2 of 38, pH of 7.50. Venous blood gases are consistent with a metabolic alkalosis. His metabolic alkalosis is likely secondary to hypokalemia, and diuretic induced volume contraction. The patient is on propofol at 30 mcg/kg/min, saline at 20 cc an hour, and vital AF 1.2 at 40 with a goal of 50 cc an hour. After his potassium is corrected, the patient will have another attempt at weaning. White count is 6.7, hemoglobin 12.1, hematocrit 36.7, platelet count 140,000. Sodium 134, potassium 3.3, chlorides 105, CO2 27, BUN 14, creatinine 1.22. Glucose is 147. Calcium 8.1. Sputum sampling is negative for pending. Chest x-ray continues to show bilateral pleural effusions, and mild volume overload. Progress note dated October 31, 2023. The patient is seen today in room 252. The patient was extubated successfully yesterday, October 29. Currently, he is on 6 L of oxygen. He is getting saline at 10 cc an hour. He still a bit lethargic. Other than that, he had an unev entful night according to the nurses. Current laboratory data includes a white count 7.7, hemoglobin 12.2, hematocrit 38, and a platelet count of 144,000. Sodium 139, potassium 4.1, chlorides 104, CO2 29, BUN 17, creatinine 1.35. Glucose 103. Calcium is 8.6. Procalcitonin level 0.42. Sputum from October 27, shows evidence of Staphylococcus aureus. Chest x-ray shows opacification, in both lungs, left greater than right. There appears to be a left-sided pleural effusion. There may be a small effusion on the right. Progress note dated November 01, 2023. 73-year-old male seen again in room 252. The patient continues on oxygen at 4 L. He is getting saline at 5 cc an hour, which will be converted to D5 with lactated Ringer's at 75 cc an hour. The sputum sample was positive for oxacill in sensitive Staphylococcus aureus. We placed him on Levaquin 500 mg a day. I am going to discontinue all of the Ativan as it may be causing his mental status not to be as sharp. Labs include a white count 5.1, hemoglobin 11.7, hematocrit 36.8, platelet count 121,000. Sodium 140, potassium 3.7, chloride 98, CO2 28, BUN 18, creatinine 1.13. Calcium is 8.7. Chest x-ray shows a left-sided pleur al effusion, and bilateral midlung infiltrates, as well as mild pulmonary edema. Progress note dated November 02, 2023. 73-year-old male seen today in room 252. The patient is currently on 4 L oxyg en. He is getting dextrose with lactated Ringer's at 75 cc an hour. The patient was agitated through the night, and Haldol, was given once, but did not seem to help. Today we add Seroquel, 25 mg 3 times a day. Will also add a nicotine patch. Current laboratory data includes a white count 4, hemoglobin 11.5, hematocrit 36.2, and a platelet count of 133,000. Sodium 135, potassium 4, chlorides 107, CO2 27, BUN 16, creatinine 0.93. Troponin 0.026. Calcium 8.9. Glucose 109. Sputum revealed evidence of oxacillin sensitive Staph aureus. The patient was started on Levaquin. Progress note dated November 03, 2023. 73-year-old male seen today in room 252. The patient continues on nasal O2 at 3 L. He is getting dextrose for lactated Ringer's at 75 cc an hour. He continues on oral Levaquin. The patient can be discharged from the intensive care unit. He has been very stable. Intermittent periods of brief agitation. He seems to be doing better on Seroquel. White count 2.8, hemoglobin 11.2, hematocrit 35.2, platelet count 106,000. Sodium 138, potassium 3.5, chlorides 108, CO2 28, BUN 12, creatinine 0.90. Glucose is 93. Calcium is 8.8. On 11/04/2023, the patient is being seen for a follow-up. This morning, the patient is calm and comfortable, he denies having any new complaints. Is resting comfortably in bed. As mentioned earlier, the patient is status post acute hypoxic respiratory failure requiring intubation mechanical ventilation patient is currently off the Suboxone by nasal cannula. He does have MSSA in the sputum and the patient is covered with Levaquin accordingly. He is known to have systolic heart failure with impaired ejection fraction of 20%. He did have an acute kidney injury at time of admission and the renal function gradually improved and is currently normalized. Nevertheless, the CAT scan of the abdomen initially showed evidence of hydronephrosis and this needs to be further followed up. Based on that, ultrasound of the kidneys was ordered to assess for ongoing hydronephrosis. I reviewed his previous chest x-ray there was evidence of pleural effusion. This could be representing CHF. The follow-up chest x-ray is obviously needed to reevaluate for ongoing presence of pleural effusion specially on the left. For now, the patient is no diuretics. He is on IV fluids which is running at 75 cc an hour. He does have a stage I sacral decub ulcer which is being managed conservatively and the patient has an Optifoam in place. White circles of 3.8 with hemoglobin 12.1 and a platelet count of 133. BUN is 12 with a creatinine of 1.0. He remains in atrial fibrillation. Other comorbidities include hypertension, coronary artery disease with previous IL, hypothyroidism, and history of alcoholism. His mental status is stable for now. No evidence of any encephalopathy. He is awake and alert and communicating and answering questions appropriately. On today's evaluation of 11/05/2023, the patient is being seen for a follow-up. Overall condition is stable and the patient has no interval worsening shortness of breath. The patient is currently on diuretics and the patient is receiving IV Lasix. Fluid balance has been essentially not well-documented. I am going to increase the diuretics and I am going to increase the dose of Lasix and start the patient also on Zaroxolyn. The goal is to achieve a negative fluid balance over the next 24 hours. Chest x-ray from yesterday showed evidence of stable diffuse pleural-parenchymal changes along with findings consistent with CHF. The patient is known to have underlying cardiomyopathy with impaired LV function. Ultrasound the kidneys also showed bilateral nephrolithiasis with moderate left hydronephrosis. There was small amount of ascites and pleural effusion and the patient will be seen by urology. Otherwise, BUN is at 30 with a creatinine of 1.1. Sodium is at 136 with a potassium level of 3.8. Chloride is 104 with a bicarb level of 28. On a separate note, the patient remains on Levaquin for MSSA in the sputum. Anticoagulation was placed on hold and consi deration for thoracentesis based on the chest x-ray from tomorrow. No encephalopathy. Mental status is appropriate for now. Wound care is also being performed. Objective - Vital Signs Vital signs: Vital Signs Temp 97.9 F 11/05/23 03:54 Pulse 90 11/05/23 07:35 Resp 18 11/05/23 04:00 BP 90/60 11/05/23 04:00 Pulse Ox 100 11/05/23 03:54 FiO2 4 11/02/23 12:00 Intake & Output 11/04/23 11/05/23 11/05/23 18:59 06:59 18:59 Intake Total 435 1015 Output Total 660 1575 Balance -225 -560 Weight 86.7 kg 86.5 kg Intake: IV 195 275 Dextrose 5%-Lactated 195 255 Ringers 1,000 ml @ 75 mls /hr IV .[id number] [facility] Rx#: [id number] Invasive Line 5 10 Invasive Line 6 10 Oral 240 740 Output: Urine 660 1575 Other: Voiding Method Indwelling Catheter Indwelling Catheter # Bowel Movements 1 ABP, PAP, CO, CI - Last Documented Arterial Blood Pressure 97/45 - Exam No acute distress, extubated, currently on 3 L nasal cannula. HEENT examination is grossly unremarkable. Neck supple. Full range of motion. No adenopathy thyromegaly or neck vein distention. Cardiovascular examination reveals regular rhythm rate. S1-S2 normal. No S3 or S4. No discernible murmur noted. Heart sounds are distant. The patient's rhythm is irregular consistent with atrial fibrillation. Lungs reveal scattered rhonchi and crackles. No wheezes. Breath sounds equal. Diminished breath sound lung bases specially on the left. Abdomen soft bowel sounds are heard. No masses or tenderness. Extremities are intact. No cyanosis clubbing or edema. Skin is without rash or lesion. Neurologic examination is brief, but nonfocal. - Labs CBC & Chem 7: 11/04/23 11:01 11/05/23 05:26 Labs: Abnormal Lab Results - Last 24 Hours (Table) 11/04/23 11/05/23 Range/Units 11:01 05:26 RBC 3.95 L (4.30-5.90) m/uL Hgb 12.1 L (13.0-17.5) gm/dL Hct 37.6 L (39.0-53.0) % RDW 15.8 H (11.5-15.5) % Plt Count 133 L (150-450) k/uL Lymphocytes # (Manual) 0.68 L (1.0-4.8) k/uL Sodium 136 L (137-145) mmol/L Assessment and Plan Plan: Acute hypoxic respiratory compromise/failure, secondary to Ativan administration, requiring intubation and mechanical ventilation, October 28, 2023. Currently on 02 at 3 liters, comfortable and respiratory status is stable. The patient was extubated on 10/30/2023. The patient continues to have signs of fluid overload with bilateral pleural effusion. Bilateral pleural effusions, left more than right Suspect bilateral pneumonia with ongoing consolidation of the left lung base. The sputum sample was positive for oxacillin sensitive Staphylococcus aureus tracheobronchitis/bronchopneumonia. The patient is currently completing a course of Levaquin. Systolic heart failure , EF 20% MARK, recovered and the patient has evidence of nephrolithiasis and left hydronephrosis Left renal hydronephrosis with transition point within the distal left ureter Left-sided pleural effusion. History of CVA. History of atrial fibrillation. Metabolic alkalosis, secondary to hypokalemia, and diuretic-induced volume contraction. Hypothyroidism. Gastroesophageal reflux disease. History of myocardial infarction. History of hypertension. History of ongoing tobacco use. History of chronic alcohol abuse. Pressure ulcer in the sacrum, DTI Plan Keep the patient on oxygen 3 L minute nasal cannula Start the patient on Lasix 4, and add Zaroxolyn 5 mg p.o. daily 0 mg IV every 12 hours IV fluids to KVO Repeat chest x-ray in the morning Hold anticoagulation and consideration for thoracentesis in a.m. Urology consultation Provide the patient is status parameter continue metoprolol for now Complete the course of Levaquin Will continue to follow
[2023-11-05 20:16] LABS: Glucose,Whole Blood 92 mg/dL (70-110)
--- NOTE | 2023-11-06 04:48 | P.PN ---
Subjective Progress Note Date: 11/05/23 This is a 73-year-old male who presented to the emergency department via EMS with reports from the emergency department that patient was altered and debilitated in his living situation at home is very unkempt including multiple animals who appear malnourished and on care for as well. Unsure of last primary care provider and any compliance to follow-up in the outpatient setting. Per medical record patient does have a history of atrial fibrillation with documented medication refills by ict project manager Dr. Moralez earlier this year, history of CVA/TIA, GERD, hypertension, previous myocardial infarction, former smoker and significant daily EtOH use. Patient was admitted initially to [facility] for altered mental status with acute NSTEMI and weakness with debility, possible alcohol withdrawal and atrial fibrillation uncontrolled with RVR. EKG showed atrial fibrillation with RVR and heart rate was 105, brain CT was performed showing no acute hemorrhage hydrocephalus or mass effect. Chest x-ray showed severe left pleural effusion with cardiomegaly. Patient was started on CIWA protocol and also 2 to 3 L via nasal cannula. Patient did undergo CT angio of the chest with no evidence of PE within the pulmonary outflow tract or immediate proximal branches, significant sequela of volume overload with mesenteric ascites and pleural effusions with cirrhotic morphology of the liver and cardiomegaly. Chest ultrasound was performed and left side was marked for possible thoracentesis. The left pleural effusion pocket size is 9.1 cm. Labs reviewed and patient had a normal white count of 5.2, hemoglobin was 13.6, platelets 176, INR 1.3, ABG showed a low pH of 7.28 O2 saturation was 95%. Sodium was 141 with a potassium of 3.9, BUN 16, creatinine mildly elevated at 1.43. Initial lactic acid was 2.1 and repeat remained the same and patient did receive a liter of fluids while in the ER and was continued on normal saline at a rate of 130 mL/h. Later patient did have a BNP drawn which significantly elevated at 22,700. TSH also found to be abnormal at 19 although free T4 was normal at 1.32. Albumin was 3.4. Urinalysis was done and negative and serum alcohol was noted to be less than 10. Troponins were also mildly elevated at 0.061 and trending up. Patient noted to be restless per nursing staff in the ER and was given an additional dose of Valium along with Ativan and then became obtunded and nonresponsive and ultimately required mechanical ventilation to protect airway. Patient is now admitted to the ICU and is being started on Lasix. Cardizem was initiated as well and patient has since converted and Cardizem has been placed on hold. Cardiac/pulmonary have been consulted. Pierre rocha is currently intubated with an FiO2 of 100% and PEEP of 5 maintaining oxygen saturations above 90%. 10/29/2023 Patient seen in follow-up in the ICU continues on mechanical patient continues in the ICU on mechanical ventilation, FiO2 is 50% with PEEP of 5. Patient remains on propofol with multiple consultations following. Patient not requiring pressor support and is maintained on IV Lasix and diuresing. Patient with wounds to bilateral lower extremities with wound care on consult. Overall prognosis is guarded at this time. 10/30/2023 Patient is seen in follow-up today continues to be in the ICU on mechanical ventilation with an FiO2 of 50% and PEEP is 5. Patient did undergo sedation weaning trial although not tolerating and will be continued on sedation. Patient becomes tacky and restless and thrashing during the sedation weaning. Sputum culture preliminary showing presumptive staph and patient is maintained on antibiotics. Continue local wound care and frequent offloading to the buttock area. Patient potassium 3.3 and will be replaced per protocol today. Patient continues with a large left pleural effusion and was maintained on IV Lasix which has been discontinued. Patient is making adequate urine per nursing staff and continues with indwelling Yeung catheter. ----Patient was successfully extubated yesterday. Patient able to respond to yes/no questions but not able to vocalize. He is currently in Afib with a HR in the 90-100s up to 120s and BP of 90s-100 s/60s. Not currently on Cardizem. Echo revealed LV EF 20%, severe biatrial dilatation, trace mitral regurgitation, and moderate tricuspid regurgitation. Current laboratory data includes a white count 7.7, hemoglobin 12.2, hematocrit 38, and a platelet count of 144,000. Sodium 139, potassium 4.1, chlorides 104, CO2 29, BUN 17, creatinine 1.35. Glucose 103. Calcium is 8.6. Procalcitonin level 0.42. Sputum from October 27, shows evidence of Staphylococcus aureus. Chest x-ray shows opacification, in both lungs, left greater than right. There appears to be a left-sided pleural effusion. 11/01/2023 Patient is seen and evaluated in room at bedside; was extubated successfully yesterday, October 29. Currently, he is on 6 L of oxygen. He is getting saline at 10 cc an hour. He still a bit lethargic. Other than that, he had an uneventful night according to the nurses. Lab review shows a white count 7.7, hemoglobin 12.2, hematocrit 38, and a platelet count of 144,000. Sodium 139, potassium 4.1, chlorides 104, CO2 29, BUN 17, creatinine 1.35. Glucose 103. Calcium is 8.6. Procalcitonin level 0.42. Sputum from October 27, shows evidence of Staphylococcus aureus. Chest x- ray shows opacification, in both lungs, left greater than right. There appears to be a left-sided pleural effusion. There may be a small effusion on the right. Patient remains in ICU-plan is to start patient on antibiotic once final culture reports are available 11/02/2023 Patient remains in ICU; and evaluated with sitter at bedside; patient was agitated yesterday evening and through the night; received Haldol which did not help; Seroquel has been added 25 mg 3 times daily -- currently on 4 L oxygen. He is getting dextrose with lactated Ringer's at 75 cc an hour. The patient was agitated through the night, and Haldol, was given once, but did not seem to help. Today we add Seroquel, 25 mg 3 times a day. -- Current laboratory data includes a white count 4, hemoglobin 11.5, hematocrit 36.2, and a platelet count of 133,000. Sodium 135, potassium 4, chlorides 107, CO2 27, BUN 16, creatinine 0.93. Troponin 0.026. Calcium 8.9. Glucose 109. Sputum revealed evidence of oxacillin sensitive Staph aureus. The patient was started on Levaquin. 11/02 Patient is sleeping this morning, he did not sleep well last night He is currently on 3 L oxygen via nasal cannula Getting D5 Ringer lactate at 75 mL/h A plan to undergo swallow evaluation today with the expectation he would pass it Yeung catheter in place with small amount of dark-colored urine, creatinine 0.9 Cozaar was held today because of borderline hypotension with systolic blood pres sure was 98 there is a Sitter at bedside and patient remains lethargic 11/05/2023 Patient is seen in follow-up continues to be in the ICU currently maintained on 3 L via nasal cannula. Patient is tolerating diet although having some nausea today. Patient's mentation is improved although continues with some periods of confusion. Awaiting PT/OT therapy eval and social work consult regarding discharge planning. Patient is stable for transfer out of the ICU and awaiting a bed. Patient is afebrile and denies chest pain or worsening shortness of breath. continue to encourage IS and wean FI02 as tolerated. Active Medications Albuterol/Ipratropium (Ipratropium-Albuterol 3 Ml Neb) 3 ml INHALATION RT-QID [facility] Last Admin: 11/05/23 20:24 Dose: Not Given Folic Acid (Folic Acid 1 Mg Tab) 1 mg PO DAILY [facility] Last Admin: 11/05/23 07:46 Dose: 1 mg Furosemide (Furosemide 10 Mg/Ml 4 Ml Vial) 40 mg IV Q12HR [facility] Last Admin: 11/05/23 20:52 Dose: 40 mg Haloperidol Lactate (Haloperidol Lactate 5 Mg/Ml 1 Ml Vial) 4 mg IVP Q4HR PRN PRN Reason: Agitation or Acute Psychosis Last Admin: 11/01/23 22:42 Dose: 4 mg Dextrose/Lactated Ringer's (Dextrose 5%-Lr Iv Soln) 1,000 mls @ 20 mls/hr IV .Q24H [facility] Last Admin: 11/05/23 10:55 Dose: Not Given Levofloxacin (Levofloxacin 500 Mg Tab) 500 mg PO Q24HR [facility]; Protocol Last Admin: 11/05/23 07:47 Dose: 500 mg Levothyroxine Sodium (Levothyroxine 100 Mcg Tab) 200 mcg PO DAILY@0630 [facility] Metolazone (Metolazone 5 Mg Tab) 5 mg PO DAILY [facility] Last Admin: 11/05/23 10:55 Dose: 5 mg Metoprolol Tartrate (Metoprolol Tartrate 12.5 Mg Tab) 12.5 mg PO BID [facility] Last Admin: 11/05/23 20:53 Dose: 12.5 mg Midodrine (Midodrine 5 Mg Tab) 2.5 mg PO AC-TID [facility] Last Admin: 11/05/23 17:26 Dose: Not Given Miscellaneous Information (Potassium Replacement Protocol 1 Each Misc) 1 each MISCELLANE DAILY PRN; Protocol PRN Reason: Per Protocol Miscellaneous Information (Magnesium Replacement Protocol 1 Each Misc) 1 each MISCELLANE DAILY PRN; Protocol PRN Reason: Per Protocol Multivitamins (Multivitamins, Thera 1 Each Tab) 1 each PO DAILY [facility] Last Admin: 11/05/23 07:47 Dose: 1 each Naloxone HCl (Naloxone 0.4 Mg/Ml 1 Ml Vial) 0.2 mg IV Q2M PRN PRN Reason: Opioid Reversal Nicotine (Nicotine 14mg/24hr Patch) 1 patch TRANSDERM DAILY [facility] Last Admin: 11/05/23 07:45 Dose: 1 patch Nystatin (Nystatin 100,000 Unit/Gm Oint 30 Gm Tube) 1 applic TOPICAL BID [facility]; Protocol Last Admin: 11/05/23 20:53 Dose: 1 applic Ondansetron HCl (Ondansetron 4 Mg/2 Ml Vial) 4 mg IVP Q8HR PRN PRN Reason: Nausea And Vomiting Last Admin: 11/05/23 15:12 Dose: 4 mg Ondansetron HCl (Ondansetron 4 Mg/2 Ml Vial) 4 mg IVP Q6HR PRN PRN Reason: Nausea And Vomiting Pantoprazole Sodium (Pantoprazole 40 Mg Tablet) 40 mg PO AC-BRKFST [facility] Petrolatum (Zinc Oxide Paste (Z-Guard) 1 Applic) 1 applic TOPICAL DAILY [facility]; Protocol Last Admin: 11/05/23 10:56 Dose: 1 applic Quetiapine Fumarate (Quetiapine 25 Mg Tab) 25 mg PO TID [facility] Last Admin: 11/05/23 21:00 Dose: 25 mg Thiamine HCl (Thiamine 100 Mg/Ml 2 Ml Vial) 100 mg IVP DAILY [facility] Last Admin: 11/05/23 07:47 Dose: 100 mg PHYSICAL EXAMINATION: -GENERAL: The patient is weak and lethargic. No acute distress HEENT: Pupils are round and equally reacting to light. EOMI. No scleral icterus. No conjunctival pallor. Normocephalic, atraumatic. No pharyngeal erythema. No thyromegaly. CARDIOVASCULAR: S1 and S2 present. No murmurs, rubs, or gallops. PULMONARY: Chest is clear to auscultation, no wheezing , no crackles. ABDOMEN: Soft, nontender, nondistended, normoactive bowel sounds. No palpable organomegaly. MUSCULOSKELETAL: No joint swelling or deformity. EXTREMITIES: No cyanosis, clubbing, or pedal edema. NEUROLOGICAL: Gross neurological examination did not reveal any focal deficits. SKIN: No rashes. no petechiae. 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 Tracheobronchitis on Levaquin Large left pleural effusion with a BNP of 22,000 Elevated troponin, unsure of NSTEMI, possibly type II mismatch History of atrial fibrillation, currently atrial fibrillation with rapid ventricular rate started on Cardizem History of CVA/TIA with no residual effects in 2006 History of myocardial infarction in 2019 History of GERD History of hypertension Stage II pressure ulcer of the left buttock, present on admission Unstageable pressure ulcer of the right buttock, present on admission Former smoker Heavy daily alcohol use and drinks about a pint of rum per day Poor social support and poor living situation Noncompliance to medication and follow-up GI prophylaxis dvt prophylaxis full code Plan: Continue with Levaquin for mssa in the sputum Continue with home dose of Eliquis 5 mg Getting gentle hydration Continue on oxygen and wean as needed, currently on 4 L via DC Pulmonary/critical care team following closely Patient is medically stable to be transferred out of the ICU Need PT/OT therapy and social work on consult for ecf and discharge planning The impression and plan of care has been dictated by Linda Diop, Nurse Practitioner as directed. Dr. Anastacio MD I have performed a history and examination and MDM of this patient, discussed the same with the dictator, and agree with the dictator's assessment and plan as written ,documented as a scribe. Based on total visit time, I have performed more than 50% of the visit. Objective - Vital Signs Vital signs: Vital Signs Temp 97.9 F 11/05/23 03:54 Pulse 90 11/05/23 07:35 Resp 18 11/05/23 04:00 BP 90/60 11/05/23 04:00 Pulse Ox 100 11/05/23 03:54 FiO2 4 11/02/23 12:00 Intake & Output 11/04/23 11/05/23 11/05/23 18:59 06:59 18:59 Intake Total 435 1015 Output Total 660 1575 Balance -225 -560 Weight 86.7 kg 86.5 kg Intake: IV 195 275 Dextrose 5%-Lactated 195 255 Ringers 1,000 ml @ 75 mls /hr IV .[id number] [facility] Rx#: [id number] Invasive Line 5 10 Invasive Line 6 10 Oral 240 740 Output: Urine 660 1575 Other: Voiding Method Indwelling Catheter Indwelling Catheter # Bowel Movements 1 ABP, PAP, CO, CI - Last Documented Arterial Blood Pressure 97/45 - Labs CBC & Chem 7: 11/04/23 11:01 11/05/23 05:26 Labs: Abnormal Lab Results - Last 24 Hours (Table) 11/04/23 11/05/23 Range/Units 11:01 05:26 RBC 3.95 L (4.30-5.90) m/uL Hgb 12.1 L (13.0-17.5) gm/dL Hct 37.6 L (39.0-53.0) % RDW 15.8 H (11.5-15.5) % Plt Count 133 L (150-450) k/uL Lymphocytes # (Manual) 0.68 L (1.0-4.8) k/uL Sodium 136 L (137-145) mmol/L
[2023-11-06] MEDS: LEVOTHYROXINE 100 MCG TAB PO SCH (06:09)
[2023-11-06 06:27] LABS: Glucose,Whole Blood 102 mg/dL (70-110)
[2023-11-06 07:09] LABS: Basophils % (A) 1 %; Eosinophils # (A) 0.1 k/uL (0-0.7); Eosinophils % (A) 4 %; HGB 11.5 gm/dL (13.0-17.5); Lymphocytes # (A) 0.8 k/uL (1.0-4.8); Lymphocytes % (A) 25 %; MCH 30.1 pg (25.0-35.0); MCV 94.3 fL (80.0-100.0); Mean Platelet Volume 9.1; Monocytes # (A) 0.2 k/uL (0-1.0); Monocytes % (A) 8 %; Neutrophils # (A) 1.9 k/uL (1.3-7.7); Neutrophils % (A) 60 %; Platelet Count 103 k/uL (150-450); RBC 3.82 m/uL (4.30-5.90); RDW 15.7 % (11.5-15.5); WBC 3.1 k/uL (3.8-10.6)
[2023-11-06 07:18] LABS: African American GFR (CKD) >90 (>60 ml/min/1.73 sqM); Anion Gap 2 mmol/L; Blood Urea Nitrogen 13 mg/dL (9-20); Calcium 8.4 mg/dL (8.4-10.2); Carbon Dioxide 32 mmol/L (22-30); Chloride 98 mmol/L (98-107); Glucose 80 mg/dL (74-99); Magnesium 1.6 mg/dL (1.6-2.3); Non-African American GFR(CKD) 81 (>60 ml/min/1.73 sqM); Potassium 3.4 mmol/L (3.5-5.1); Sodium 132 mmol/L (137-145)
[2023-11-06] MEDS: PANTOPRAZOLE 40 MG TABLET PO SCH (08:12)
[2023-11-06] MEDS ORDERED: Potassium Replacement Protocol 1 EACH MISC MISCELLANE PRN (09:01)
[2023-11-06] MEDS ORDERED: Magnesium Replacement Protocol 1 EACH MISC MISCELLANE PRN (09:01)
--- NOTE | 2023-11-06 09:27 | P.PN ---
Subjective Progress Note Date: 11/06/23 The patient is a 73-year-old male who is currently admitted to the hospital with heart failure and persistent atrial fibrillation. Attempted to add heart failure medications over the course of his admission, however losartan was discontinued due to hypotension. No change in symptoms in the last 24 hours. He states he has gotten up and ambulated around the room with assistance. He still has shortness of breath if he exerts himself. No chest pain or pressure. GENERAL: Well-appearing, well-nourished and in no acute distress. NECK: Supple without JVD or thyromegaly. LUNGS: Breath sounds diminished to auscultation bilaterally. Respiration equal and unlabored. No wheezes, rales or rhonchi. HEART: Irregular rate and rhythm without murmurs, rubs or gallops. S1 and S2 heard. EXTREMITIES: Normal range of motion, no edema. No clubbing or cyanosis. Peripheral pulses intact and strong. TELEMETRY: Rate controlled atrial fibrillation overnight LABS: WBC 3.1, hemoglobin 11.5 hematocrit 36.0, platelet 103, sodium 132, potassium 3.4, BUN 13, creatinine 0.95, magnesium 1.6 IMPRESSION: HFrEF, acute on chronic; LV EF 20% Persistent A-fib with controlled ventricular rate Left-sided pleural effusion, awaiting thoracentesis Encephalopathy, metabolic. History of hypertension. EtOH abuse. History of CVA/TIA. History of myocardial infarction. PLAN: Continue supportive treatment Continue to wean off of midodrine as tolerated No further recommendations from the cardiac standpoint I am dictating on behalf of Dr Ja Duff's history/physical and assessment/plan. Objective - Vital Signs Vital signs: Vital Signs Temp 97.5 F L 11/06/23 08:00 Pulse 92 11/06/23 08:01 Resp 18 11/06/23 08:00 BP 79/53 11/06/23 08:00 Pulse Ox 98 11/06/23 08:00 FiO2 4 11/02/23 12:00 Intake & Output 11/05/23 11/06/23 11/06/23 18:59 06:59 18:59 Intake Total 240 500 Output Total 1500 4150 Balance -1260 -3650 Weight 85 kg Intake: Oral 240 500 Output: Urine 1500 4150 Other: Voiding Method Indwelling Catheter External Catheter ABP, PAP, CO, CI - Last Documented Arterial Blood Pressure 97/45 - Labs CBC & Chem 7: 11/06/23 06:20 11/06/23 06:20 Labs: Abnormal Lab Results - Last 24 Hours (Table) 11/06/23 11/06/23 Range/Units 06:20 06:20 WBC 3.1 L (3.8-10.6) k/uL RBC 3.82 L (4.30-5.90) m/uL Hgb 11.5 L (13.0-17.5) gm/dL Hct 36.0 L (39.0-53.0) % RDW 15.7 H (11.5-15.5) % Plt Count 103 L (150-450) k/uL Lymphocytes # 0.8 L (1.0-4.8) k/uL Sodium 132 L (137-145) mmol/L Potassium 3.4 L (3.5-5.1) mmol/L Carbon Dioxide 32 H (22-30) mmol/L
[2023-11-06] MEDS: POTASSIUM CHLORIDE ER 20 MEQ TAB.ER PO SCH (11:08)
[2023-11-06] MEDS: MAGNESIUM SULFATE-D5W PMX 1 GM in DEXTROSE/WATER 1 100ML.BAG IVPB ONE (11:09)
--- NOTE | 2023-11-06 11:20 | XR ---
EXAMINATION TYPE: XR chest 1V portable DATE OF EXAM: 11/06/2023 COMPARISON: 11/04/2023 HISTORY: Thoracentesis TECHNIQUE: Single frontal view of the chest is obtained. FINDINGS: Bilateral consolidation and small effusion. No sizable pneumothorax. Interval reduction in amount of fluid on the left. Chronic rib deformities and degenerative change of the spine. Arthropat hy of the shoulders. Underlying COPD. IMPRESSION: 1. No sizable pneumothorax 2. Interval near complete resolution of left-sided pleural effusion. 3. Stable small right pleural effusion. Correlate for underlying venous congestion.
[2023-11-06 11:51] LABS: Glucose,Whole Blood 88 mg/dL (70-110)
--- NOTE | 2023-11-06 12:08 | P.GSCN ---
History of Present Illness Consult date: 11/06/23 Reason for Consult: Left ureteral mass History of present illness: This is a 73-year-old male to the hospital with altered mental status. Urology is consulted for finding of incidental left ureteral mass with mild hydronephrosis. Patient denies any flank pain, but indicated he has been having intermittent gross hematuria for the past 2 to 4 months. No known bladder or renal malignancies. Does have previous history of kidney stones that he passed spontaneously. At baseline denies any voiding symptoms. CT showed evidence of a 1.8 cm left distal ureteral mass, with mild hydronephrosis, there was a small calcification at the site of the mass. He is a former smoker. Review of Systems - Constitutional Denies fever, Denies weight loss - EENT Ears, nose, mouth and throat: Denies dysphagia - Cardiovascular Denies chest pain, Denies shortness of breath - Respiratory Denies cough, Denies 7 - Genitourinary Reports flank pain, Denies hematuria - Neurological Denies headaches, Denies syncope Past Medical History Past Medical History: Atrial Fibrillation, CVA/TIA, GERD/Reflux, Hypertension, Myocardial Infarction ([place]) Additional Past Medical History / Comment(s): CVA-2006 no residual Last Myocardial Infarction Date:: History of Any Multi-Drug Resistant Organisms: None Reported Past Surgical History: Heart Catheterization Past Anesthesia/Blood Transfusion Reactions: No Reported Reaction Past Psychological History: No Psychological Hx Reported Smoking Status: Former smoker Past Alcohol Use History: Daily Past Drug Use History: None Reported - Past Family History Mother Family Medical History: No Reported History Father Family Medical History: Cancer Medications and Allergies Home Medications Medication Instructions Recorded Confirmed Type Apixaban [Eliquis] 5 mg PO BID #60 tab 04/16/18 10/28/23 Rx Furosemide [Lasix] 20 mg PO DAILY 01/21/23 10/28/23 History Midodrine [ProAmatine] 2.5 mg PO AC-TID 30 Days #90 tab 01/26/23 10/28/23 Rx Allergies Allergy/AdvReac Type Severity Reaction Status Date / Time No Known Allergies Allergy Verified 10/28/23 09:20 Surgical - Exam Vital Signs Temp Pulse Resp BP Pulse Ox 97.0 F L 60 18 120/100 97 10/28/23 00:37 10/28/23 00:37 10/28/23 00:37 10/28/23 00:37 10/28/23 00:37 - General no distress, no pain - Eyes normal ocular movement, no pale - ENT normal nares, normal mucosa - Respiratory normal expansion, normal respiratory effort - Abdomen Abdomen: soft, non tender, no distended - Psychiatric oriented to time, oriented to person, oriented to place Results - Labs 11/06/23 06:20 11/06/23 06:20 Abnormal Lab Results - Last 24 Hours (Table) 11/06/23 11/06/23 Range/Units 06:20 06:20 WBC 3.1 L (3.8-10.6) k/uL RBC 3.82 L (4.30-5.90) m/uL Hgb 11.5 L (13.0-17.5) gm/dL Hct 36.0 L (39.0-53.0) % RDW 15.7 H (11.5-15.5) % Plt Count 103 L (150-450) k/uL Lymphocytes # 0.8 L (1.0-4.8) k/uL Sodium 132 L (137-145) mmol/L Potassium 3.4 L (3.5-5.1) mmol/L Carbon Dioxide 32 H (22-30) mmol/L Diabetes panel 11/06/23 Range/Units 06:20 Sodium 132 L (137-145) mmol/L Potassium 3.4 L (3.5-5.1) mmol/L Chloride 98 (98-107) mmol/L Carbon Dioxide 32 H (22-30) mmol/L BUN 13 (9-20) mg/dL Creatinine 0.95 (0.66-1.25) mg/dL Glucose 80 (74-99) mg/dL Calcium 8.4 (8.4-10.2) mg/dL Calcium panel 11/06/23 Range/Units 06:20 Calcium 8.4 (8.4-10.2) mg/dL Pituitary panel 11/06/23 Range/Units 06:20 Sodium 132 L (137-145) mmol/L Potassium 3.4 L (3.5-5.1) mmol/L Chloride 98 (98-107) mmol/L Carbon Dioxide 32 H (22-30) mmol/L BUN 13 (9-20) mg/dL Creatinine 0.95 (0.66-1.25) mg/dL Glucose 80 (74-99) mg/dL Calcium 8.4 (8.4-10.2) mg/dL Adrenal panel 11/06/23 Range/Units 06:20 Sodium 132 L (137-145) mmol/L Potassium 3.4 L (3.5-5.1) mmol/L Chloride 98 (98-107) mmol/L Carbon Dioxide 32 H (22-30) mmol/L BUN 13 (9-20) mg/dL Creatinine 0.95 (0.66-1.25) mg/dL Glucose 80 (74-99) mg/dL Calcium 8.4 (8.4-10.2) mg/dL Assessment and Plan Assessment: 73-year-old male with incidental finding of a left ureteral mass with hydronephrosis seen on CT. Is having intermittent gross hematuria. Discussed with him at this point he will require further evaluation, I would obtain a CT urogram on him and will eventually need also cystoscopy as an outpatient given his gross hematuria -CT Urogram
--- NOTE | 2023-11-06 13:25 | CT ---
EXAMINATION TYPE: CT urogram wo/w con CT DLP: 1918 mGycm, Automated exposure control for dose reduction was used. DATE OF EXAM: 11/06/2023 1:02 PM COMPARISON: . 10/28/2023 CLINICAL INDICATION: Male, 73 years old with history of Hematuria; PHH, Hemat uria. TECHNIQUE: Urogram with imaging of the abdomen and pelvis. Coronal and sagittal reformats were performed. 2D and 3D reconstructions are performed to assist visualization of the urinary tract on a separate workstat ion. Contrast used:100 ml mL of Isovue 370 with IV Contrast, Oral contrast used: None. FINDINGS: LOWER CHEST: left lower lobe airspace opacities. Small right and trace left pleural effusion. Cardiom egaly. GENITOURINARY: RIGHT KIDNEY AND URETER: No calculi. No hydronephrosis or hydroureter. No renal mass or other lesions . No urothelial lesions: no filling defect, dilation, stricture or wall thickening. LEFT KIDNEY AND URETER: No calculi. No hydronephrosis or hydroureter. No renal mass or other lesions. Limited distal ureter secondary to lack of excreted IV contrast. There is poor excretion of the left kidney. Dilation of the left proximal ureter with area right prior to entering the pelvis of possibl e urothelial wall thickening and/or mass series 501 image 66 the remainder of the ureter extending to the bladder is within normal limits.. URINARY BLADDER: Well distended. Limited evaluation secondary to partial filling of the bladder with excreted IV contrast. No calculi or obvious mass. REPRODUCTIVE: Unremarkable. ABDOMEN LIVER: Nodular border to liver. Simple appearing left hepatic lobe probable cysts. GALLBLADDER AND BILE DUCTS: Unremarkable PANCREAS: Unremarkable. SPLEEN: Unremarkable. ADRENAL GLANDS: Unremarkable. STOMACH AND BOWEL: . No evidence of bowel obstruction. Colonic diverticulosis. PERITONEUM: No evidence of pneumoperitoneum, or adenopathy. Trace free fluid throughout the abdomen. VASCULATURE: No evidence of aortic aneurysm. MUSCULOSKELETAL: No acute osseous abnormalities LYMPH NODES: No gross evidence for lymphadenopathy. SOFT TISSUE/ABDOMINAL WALL: Unremarkable IMPRESSION: 1. Left ureteral pelvic brim ureteral wall thickening/mass with resultant mild left hydronephrosis a nd poor left renal excretion. Further workup recommended to exclude transitional cell carcinoma. No c alculi definitively visualized in the left collecting system. Multiple colonic diverticula closely ap proximate the ureter. 2. No evidence for renal calculus. Limited evaluation of the left ureter due to lack of excreted con trast. There is narrowing of the left ureter as it enters the pelvis adjacent to the 3. Left lower lobe airspace opacities correlate for pneumonia. 4. Small right and trace left pleural effusion with cardiomegaly correlate for congestive heart fail ure. 5. Nodular contour to liver with trace abdominal ascites correlate for hepatic cirrhosis. 6. Colonic diverticulosis.
--- NOTE | 2023-11-06 13:48 | P.PN ---
Subjective Progress Note Date: 11/06/23 This is a 73-year-old male who presented to the emergency department via EMS with reports from the emergency department that patient was altered and debilitated in his living situation at home is very unkempt including multiple animals who appear malnourished and on care for as well. Unsure of last primary care provider and any compliance to follow-up in the outpatient setting. Per medical record patient does have a history of atrial fibrillation with documented medication refills by channel lip stiffener insoles Dr. Moralez earlier this year, history of CVA/TIA, GERD, hypertension, previous myocardial infarction, former smoker and significant daily EtOH use. Patient was admitted initially to [facility] for altered mental status with acute NSTEMI and weakness with debility, possible alcohol withdrawal and atrial fibrillation uncontrolled with RVR. EKG showed atrial fibrillation with RVR and heart rate was 105, brain CT was performed showing no acute hemorrhage hydrocephalus or mass effect. Chest x-ray showed severe left pleural effusion with cardiomegaly. Patient was started on CIWA protocol and also 2 to 3 L via nasal cannula. Patient did undergo CT angio of the chest with no evidence of PE within the pulmonary outflow tract or immediate proximal branches, significant sequela of volume overload with mesenteric ascites and pleural effusions with cirrhotic morphology of the liver and cardiomegaly. Chest ultrasound was performed and left side was marked for possible thoracentesis. The left pleural effusion pocket size is 9.1 cm. Labs reviewed and patient had a normal white count of 5.2, hemoglobin was 13.6, platelets 176, INR 1.3, ABG showed a low pH of 7.28 O2 saturation was 95%. Sodium was 141 with a potassium of 3.9, BUN 16, creatinine mildly elevated at 1.43. Initial lactic acid was 2.1 and repeat remained the same and patient did receive a liter of fluids while in the ER and was continued on normal saline at a rate of 130 mL/h. Later patient did have a BNP drawn which significantly elevated at 22,700. TSH also found to be abnormal at 19 although free T4 was normal at 1.32. Albumin was 3.4. Urinalysis was done and negative and serum alcohol was noted to be less than 10. Troponins were also mildly elevated at 0.061 and trending up. Patient noted to be restless per nursing staff in the ER and was given an additional dose of Valium along with Ativan and then became obtunded and nonresponsive and ultimately required mechanical ventilation to protect airway. Patient is now admitted to the ICU and is being started on Lasix. Cardizem was initiated as well and patient has since converted and Cardizem has been placed on hold. Cardiac/pulmonary have been consulted. Pierre rocha is currently intubated with an FiO2 of 100% and PEEP of 5 maintaining oxygen saturations above 90%. 10/29/2023 Patient seen in follow-up in the ICU continues on mechanical patient continues in the ICU on mechanical ventilation, FiO2 is 50% with PEEP of 5. Patient remains on propofol with multiple consultations following. Patient not requiring pressor support and is maintained on IV Lasix and diuresing. Patient with wounds to bilateral lower extremities with wound care on consult. Overall prognosis is guarded at this time. 10/30/2023 Patient is seen in follow-up today continues to be in the ICU on mechanical ventilation with an FiO2 of 50% and PEEP is 5. Patient did undergo sedation weaning trial although not tolerating and will be continued on sedation. Patient becomes tacky and restless and thrashing during the sedation weaning. Sputum culture preliminary showing presumptive staph and patient is maintained on antibiotics. Continue local wound care and frequent offloading to the buttock area. Patient potassium 3.3 and will be replaced per protocol today. Patient continues with a large left pleural effusion and was maintained on IV Lasix which has been discontinued. Patient is making adequate urine per nursing staff and continues with indwelling Yeung catheter. ----Patient was successfully extubated yesterday. Patient able to respond to yes/no questions but not able to vocalize. He is currently in Afib with a HR in the 90-100s up to 120s and BP of 90s-100 s/60s. Not currently on Cardizem. Echo revealed LV EF 20%, severe biatrial dilatation, trace mitral regurgitation, and moderate tricuspid regurgitation. Current laboratory data includes a white count 7.7, hemoglobin 12.2, hematocrit 38, and a platelet count of 144,000. Sodium 139, potassium 4.1, chlorides 104, CO2 29, BUN 17, creatinine 1.35. Glucose 103. Calcium is 8.6. Procalcitonin level 0.42. Sputum from October 27, shows evidence of Staphylococcus aureus. Chest x-ray shows opacification, in both lungs, left greater than right. There appears to be a left-sided pleural effusion. 11/01/2023 Patient is seen and evaluated in room at bedside; was extubated successfully yesterday, October 29. Currently, he is on 6 L of oxygen. He is getting saline at 10 cc an hour. He still a bit lethargic. Other than that, he had an uneventful night according to the nurses. Lab review shows a white count 7.7, hemoglobin 12.2, hematocrit 38, and a platelet count of 144,000. Sodium 139, potassium 4.1, chlorides 104, CO2 29, BUN 17, creatinine 1.35. Glucose 103. Calcium is 8.6. Procalcitonin level 0.42. Sputum from October 27, shows evidence of Staphylococcus aureus. Chest x- ray shows opacification, in both lungs, left greater than right. There appears to be a left-sided pleural effusion. There may be a small effusion on the right. Patient remains in ICU-plan is to start patient on antibiotic once final culture reports are available 11/02/2023 Patient remains in ICU; and evaluated with sitter at bedside; patient was agitated yesterday evening and through the night; received Haldol which did not help; Seroquel has been added 25 mg 3 times daily -- currently on 4 L oxygen. He is getting dextrose with lactated Ringer's at 75 cc an hour. The patient was agitated through the night, and Haldol, was given once, but did not seem to help. Today we add Seroquel, 25 mg 3 times a day. -- Current laboratory data includes a white count 4, hemoglobin 11.5, hematocrit 36.2, and a platelet count of 133,000. Sodium 135, potassium 4, chlorides 107, CO2 27, BUN 16, creatinine 0.93. Troponin 0.026. Calcium 8.9. Glucose 109. Sputum revealed evidence of oxacillin sensitive Staph aureus. The patient was started on Levaquin. 11/02 Patient is sleeping this morning, he did not sleep well last night He is currently on 3 L oxygen via nasal cannula Getting D5 Ringer lactate at 75 mL/h A plan to undergo swallow evaluation today with the expectation he would pass it Yeung catheter in place with small amount of dark-colored urine, creatinine 0.9 Cozaar was held today because of borderline hypotension with systolic blood pres sure was 98 there is a Sitter at bedside and patient remains lethargic 11/05/2023 Patient is seen in follow-up continues to be in the ICU currently maintained on 3 L via nasal cannula. Patient is tolerating diet although having some nausea today. Patient's mentation is improved although continues with some periods of confusion. Awaiting PT/OT therapy eval and social work consult regarding discharge planning. Patient is stable for transfer out of the ICU and awaiting a bed. Patient is afebrile and denies chest pain or worsening shortness of breath. continue to encourage IS and wean FI02 as tolerated. 11/06/2023 Patient seen in follow-up today as a downgrade from the ICU once a bed is available. Blood pressures have been marginal and on the lower side although patient was maintained on IV Lasix along with metolazone per pulmonary yard hostler. Patient is diuresing well and also underwent thoracentesis on the left with approximately 2 L removed. Patient continues on 2 L with a oxygen saturation of 98% and working to wean FiO2 as tolerated. Patient was continued on IV Lasix twice daily and does continue with volume overload noted of the lower extremities and would likely benefit from at least daily. Will discuss with pulmonary yard hostler as sodium is lower at 132, potassium is 3.4 and magnesium is 1.6. Recommend replace electrolytes per protocol. Blood sugars have been monitored and within normal limits and will continue current regimen. Continue to work with patient with physical therapy and also social work as patient lives alone and does have a brother that lives next-door. Strongly recommend rehab on discharge as patient has had prolonged hospitalization and significant weakness. Patient also having left knuckle pain with swelling and redness with history of gout. Review of systems: Constitutional: No reports of fatigue, fever, or chills Cardiovascular: No reports of chest pain or palpitations Respiratory: No reports of worsening shortness of breath or cough GI: No reports of nausea, vomiting, or diarrhea, patient had an episode of nausea with no vomiting : No reports of dysuria or retention Neurovascular: reports of generalized weakness All medications have been reviewed PHYSICAL EXAMINATION: GENERAL: The patient is more awake today. No acute distress, alert and oriented x 2-3, baseline, well-developed, elderly appearing HEENT: Pupils are round and equally reacting to light. EOMI. No scleral icterus. No conjunctival pallor. Normocephalic, atraumatic. No pharyngeal erythema. No thyromegaly. CARDIOVASCULAR: S1 and S2 present. No murmurs, rubs, or gallops. PULMONARY: Diminished breath sounds bilaterally otherwise chest is clear to auscultation, no wheezing , no crackles. Improved aeration of the right lung ABDOMEN: Soft, nontender, nondistended, normoactive bowel sounds. No palpable organomegaly. MUSCULOSKELETAL: No joint swelling or deformity. EXTREMITIES: No cyanosis, clubbing, or pedal edema. Bilateral lower extremity edema 1+ pitting noted, left knuckle red and swollen with intense pain on palpation NEUROLOGICAL: Gross neurological examination did not reveal any focal deficits. Diffusely weak SKIN: No rashes. no petechiae. 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 Tracheobronchitis on Levaquin Large left pleural effusion with a BNP of 22,000, status post thoracentesis with approximately 2 L removed on 11/06/2023 Left index finger knuckle with redness and swelling, concerns for gout flareup Elevated troponin, unsure of NSTEMI, possibly type II mismatch History of atrial fibrillation, currently atrial fibrillation with rapid ventricular rate started on Cardizem History of CVA/TIA with no residual effects in 2006 History of myocardial infarction in 2019 History of GERD History of hypertension Stage II pressure ulcer of the left buttock, present on admission Unstageable pressure ulcer of the right buttock, present on admission Former smoker Heavy daily alcohol use and drinks about a pint of rum per day Poor social support and poor living situation Noncompliance to medication and follow-up GI prophylaxis dvt prophylaxis full code Plan: Continue with Levaquin for mssa in the sputum Continue with home dose of Eliquis 5 mg Getting gentle hydration although maintained on metolazone and IV Lasix. Currently recommend holding diuretics for 1 day and follow-up with repeat labs. Will discuss further with pulmonary yard hostler Dr. Woods as he was diuresing the patient Patient is status post thoracentesis on the left side with approximately 2 L removed Patient having left index finger knuckle flareup with redness and stiffness with history of gout, likely gout flareup will start colchicine for the next few days Continue on oxygen and wean as needed, currently on 4 L via [place] Pulmonary/critical care team following closely Patient is medically stable to be transferred out of the ICU if blood pressure is maintained 90 systolic or above Need PT/OT therapy and social work on consult for ecf and discharge planning. Patient reports has family next-door that can help although unsure of a safe discharge plan as living situation was inadequate on arrival from EMS. Will need to discuss further regarding discharge planning as PT/OT therapy recommending rehab. Patient with significant weakness and prolonged hospitalization would benefit from ECF on discharge. The impression and plan of care has been dictated by Linda Diop, Nurse Practitioner as directed. Dr. Anastacio MD I have performed a history and examination and MDM of this patient, discussed the same with the dictator, and agree with the dictator's assessment and plan as written ,documented as a scribe. Based on total visit time, I have performed more than 50% of the visit. Objective - Vital Signs Vital signs: Vital Signs Temp 97.5 F L 11/06/23 08:00 Pulse 92 11/06/23 08:01 Resp 18 11/06/23 08:00 BP 79/53 11/06/23 08:00 Pulse Ox 98 11/06/23 08:00 FiO2 4 11/02/23 12:00 Intake & Output 11/05/23 11/06/23 11/06/23 18:59 06:59 18:59 Intake Total 240 500 Output Total 1500 4150 Balance -1260 -3650 Weight 85 kg Intake: Oral 240 500 Output: Urine 1500 4150 Other: Voiding Method Indwelling Catheter External Catheter ABP, PAP, CO, CI - Last Documented Arterial Blood Pressure 97/45 - Labs CBC & Chem 7: 11/06/23 06:20 11/06/23 06:20 Labs: Abnormal Lab Results - Last 24 Hours (Table) 11/06/23 11/06/23 Range/Units 06:20 06:20 WBC 3.1 L (3.8-10.6) k/uL RBC 3.82 L (4.30-5.90) m/uL Hgb 11.5 L (13.0-17.5) gm/dL Hct 36.0 L (39.0-53.0) % RDW 15.7 H (11.5-15.5) % Plt Count 103 L (150-450) k/uL Lymphocytes # 0.8 L (1.0-4.8) k/uL Sodium 132 L (137-145) mmol/L Potassium 3.4 L (3.5-5.1) mmol/L Carbon Dioxide 32 H (22-30) mmol/L
--- NOTE | 2023-11-06 14:20 | P.PN ---
Subjective Progress Note Date: 11/06/23 Pulmonary consult dated October 28, 2023. This is a 73-year-old male who presented to the emergency department, on October 27, shortly after 12 AM. The patient came in with multiple complaints including chest pain, and weakness. Apparently, the patient has been living in squalid conditions at home, and was unable to take care of his animals, including a dog and a cat, and his living condition apparently has been significant for him. He apparently has not gotten out of bed for 3 to 4 days, according to the ER shreya. We were asked to see the patient because of pleural effusion. We saw the patient down in the emergency department, room #8. The patient was very lethargic and somnolent, having received Ativan recently, because of concerns of alcohol withdrawal syndrome. The patient was on O2 at 3 L. He was found to have a left-sided pleural effusion, and atrial fibrillation, he was placed on Cardizem at 5 mg an hour. The patient apparently has a history of CVA, atrial fibrillation, gastroesophageal reflux disease, myocardial infarction, hypertension, and is a smoker, and drinks heavily. Current labs include a white count 5.2, hemoglobin 13.6, hematocrit 42.3, and a normal platelet count. PT was 13.3 with an INR of 1.3. Blood gases showed a pO2 of 87, pCO2 of 45, and a pH of 7.28. Sodium 141, potassium 3.9, chlorides 106, CO2 25, anion gap 10, BUN 16, creatinine 1.43. The patient's troponin was 0.061. N-terminal proBNP was 22,700. The patient's TSH was 19. Albumin was 3.4. Urine showed trace protein, trace blood, rare sediment. Serum alcohol was less than 10. Brain CT showed nothing acute. Initial chest x-ray showed a large left pleural effusion. CT angiogram was negative for pulmonary embolism, and showed primarily volume overload, with ascites, and pleural effusion. CT of the abdomen showed moderate left renal hydronephrosis, volume overload, and a cirrhotic liver among other things. Ultrasound of the left chest reveals a 9.1 cm pocket of fluid on the l eft side, with nothing on the right side. The patient continued to receive Ativan in the emergency department, and became so somnolent, he essentially had near respiratory arrest, and was electively intubated, for airway protection and respiratory support. His post intubation chest x-ray showed a properly placed endotracheal tube. Progress note dated October 29, 2023. The patient is seen today in room 252. He remains on the mechanical ventilator. He was intubated yesterday, for impending respiratory failure, lethargy, and somnolence. Current ventilator settings include volume assist-control, rate 16, tidal volume 450, FiO2 50%, and PEEP of 5. Blood gases show pO2 71, pCO2 of 34, and a pH of 7.47. Currently, the patient is on saline at 10 cc an hour and propofol at 20 mcg/kg/min. He had an uneventful night according to the nurses. White count 6.2, hemoglobin 12.4, hematocrit 38.6, platelet count 138,000. Sodium 140, potassium 2.6, chlorides 109, CO2 22, anion gap 9, BUN 14, c reatinine 1.22. Glucose 101. Calcium 8.3. Albumin 2.6. Chest x-ray suggest fluid overload/CHF, and a large left-sided pleural effusion. Progress note dated October 30, 2023. The patient is seen today again in room 252. He remains on the mechanical ventilator. The patient did have a daily interruption of sedation yesterday, with an attempted spontaneous breathing trial, but he did poorly. He remains on volume assist-control, rate 16, tidal volume 450, FiO2 50%, PEEP of 5. Blood gases show pO2 of 83, pCO2 of 38, pH of 7.50. Venous blood gases are consistent with a metabolic alkalosis. His metabolic alkalosis is likely secondary to hypokalemia, and diuretic induced volume contraction. The patient is on propofol at 30 mcg/kg/min, saline at 20 cc an hour, and vital AF 1.2 at 40 with a goal of 50 cc an hour. After his potassium is corrected, the patient will have another attempt at weaning. White count is 6.7, hemoglobin 12.1, hematocrit 36.7, platelet count 140,000. Sodium 134, potassium 3.3, chlorides 105, CO2 27, BUN 14, creatinine 1.22. Glucose is 147. Calcium 8.1. Sputum sampling is negative for pending. Chest x-ray continues to show bilateral pleural effusions, and mild volume overload. Progress note dated October 31, 2023. The patient is seen today in room 252. The patient was extubated successfully yesterday, October 29. Currently, he is on 6 L of oxygen. He is getting saline at 10 cc an hour. He still a bit lethargic. Other than that, he had an unev entful night according to the nurses. Current laboratory data includes a white count 7.7, hemoglobin 12.2, hematocrit 38, and a platelet count of 144,000. Sodium 139, potassium 4.1, chlorides 104, CO2 29, BUN 17, creatinine 1.35. Glucose 103. Calcium is 8.6. Procalcitonin level 0.42. Sputum from October 27, shows evidence of Staphylococcus aureus. Chest x-ray shows opacification, in both lungs, left greater than right. There appears to be a left-sided pleural effusion. There may be a small effusion on the right. Progress note dated November 01, 2023. 73-year-old male seen again in room 252. The patient continues on oxygen at 4 L. He is getting saline at 5 cc an hour, which will be converted to D5 with lactated Ringer's at 75 cc an hour. The sputum sample was positive for oxacill in sensitive Staphylococcus aureus. We placed him on Levaquin 500 mg a day. I am going to discontinue all of the Ativan as it may be causing his mental status not to be as sharp. Labs include a white count 5.1, hemoglobin 11.7, hematocrit 36.8, platelet count 121,000. Sodium 140, potassium 3.7, chloride 98, CO2 28, BUN 18, creatinine 1.13. Calcium is 8.7. Chest x-ray shows a left-sided pleur al effusion, and bilateral midlung infiltrates, as well as mild pulmonary edema. Progress note dated November 02, 2023. 73-year-old male seen today in room 252. The patient is currently on 4 L oxyg en. He is getting dextrose with lactated Ringer's at 75 cc an hour. The patient was agitated through the night, and Haldol, was given once, but did not seem to help. Today we add Seroquel, 25 mg 3 times a day. Will also add a nicotine patch. Current laboratory data includes a white count 4, hemoglobin 11.5, hematocrit 36.2, and a platelet count of 133,000. Sodium 135, potassium 4, chlorides 107, CO2 27, BUN 16, creatinine 0.93. Troponin 0.026. Calcium 8.9. Glucose 109. Sputum revealed evidence of oxacillin sensitive Staph aureus. The patient was started on Levaquin. Progress note dated November 03, 2023. 73-year-old male seen today in room 252. The patient continues on nasal O2 at 3 L. He is getting dextrose for lactated Ringer's at 75 cc an hour. He continues on oral Levaquin. The patient can be discharged from the intensive care unit. He has been very stable. Intermittent periods of brief agitation. He seems to be doing better on Seroquel. White count 2.8, hemoglobin 11.2, hematocrit 35.2, platelet count 106,000. Sodium 138, potassium 3.5, chlorides 108, CO2 28, BUN 12, creatinine 0.90. Glucose is 93. Calcium is 8.8. On 11/04/2023, the patient is being seen for a follow-up. This morning, the patient is calm and comfortable, he denies having any new complaints. Is resting comfortably in bed. As mentioned earlier, the patient is status post acute hypoxic respiratory failure requiring intubation mechanical ventilation patient is currently off the Suboxone by nasal cannula. He does have MSSA in the sputum and the patient is covered with Levaquin accordingly. He is known to have systolic heart failure with impaired ejection fraction of 20%. He did have an acute kidney injury at time of admission and the renal function gradually improved and is currently normalized. Nevertheless, the CAT scan of the abdomen initially showed evidence of hydronephrosis and this needs to be further followed up. Based on that, ultrasound of the kidneys was ordered to assess for ongoing hydronephrosis. I reviewed his previous chest x-ray there was evidence of pleural effusion. This could be representing CHF. The follow-up chest x-ray is obviously needed to reevaluate for ongoing presence of pleural effusion specially on the left. For now, the patient is no diuretics. He is on IV fluids which is running at 75 cc an hour. He does have a stage I sacral decub ulcer which is being managed conservatively and the patient has an Optifoam in place. White circles of 3.8 with hemoglobin 12.1 and a platelet count of 133. BUN is 12 with a creatinine of 1.0. He remains in atrial fibrillation. Other comorbidities include hypertension, coronary artery disease with previous UT, hypothyroidism, and history of alcoholism. His mental status is stable for now. No evidence of any encephalopathy. He is awake and alert and communicating and answering questions appropriately. On today's evaluation of 11/05/2023, the patient is being seen for a follow-up. Overall condition is stable and the patient has no interval worsening shortness of breath. The patient is currently on diuretics and the patient is receiving IV Lasix. Fluid balance has been essentially not well-documented. I am going to increase the diuretics and I am going to increase the dose of Lasix and start the patient also on Zaroxolyn. The goal is to achieve a negative fluid balance over the next 24 hours. Chest x-ray from yesterday showed evidence of stable diffuse pleural-parenchymal changes along with findings consistent with CHF. The patient is known to have underlying cardiomyopathy with impaired LV function. Ultrasound the kidneys also showed bilateral nephrolithiasis with moderate left hydronephrosis. There was small amount of ascites and pleural effusion and the patient will be seen by urology. Otherwise, BUN is at 30 with a creatinine of 1.1. Sodium is at 136 with a potassium level of 3.8. Chloride is 104 with a bicarb level of 28. On a separate note, the patient remains on Levaquin for MSSA in the sputum. Anticoagulation was placed on hold and consi deration for thoracentesis based on the chest x-ray from tomorrow. No encephalopathy. Mental status is appropriate for now. Wound care is also being performed. 11/06/2023, seen the pulmonary follow-up in the intensive care unit. The patient is doing well with no specific complaints. Remains on oxygen at 4 L/min nasal cannula. Still being diuresed with IV Lasix and oral Zaroxolyn. Fluid balance is -4.9 L over the past 24 hours. A bedside thoracentesis was done and a total of 1.8 L of pleural fluid was aspirated from the left hemithorax without any complications. The blood work from today shows a white cell count of 3.1, hemoglobin of 11.5 and a platelet count of 103. Sodium is at 132, potassium is at 3.4, BUN 15 with a creatinine of 0.95. The procedure was done without any complication. Postoperative chest x-ray showed resolution of the left-sided pleural effusion and there is no evidence of any pneumothorax. There is a small right-sided pleural effusion still present. On a separate note, the patient was seen by urology. The patient has a left ureteral mass with hydronephrosis. He is having some intermittent gross hematuria. Currently this problem is an active complaint. The patient is to be seen by urology and a CT urogram was also ordered and eventually he may need a cystoscopy. Objective - Vital Signs Vital signs: Vital Signs Temp 97.5 F L 11/06/23 08:00 Pulse 92 11/06/23 08:01 Resp 18 11/06/23 08:00 BP 79/53 11/06/23 08:00 Pulse Ox 98 11/06/23 08:00 FiO2 4 11/02/23 12:00 Intake & Output 11/05/23 11/06/23 11/06/23 18:59 06:59 18:59 Intake Total 240 500 Output Total 1500 4150 Balance -1260 -3650 Weight 85 kg Intake: Oral 240 500 Output: Urine 1500 4150 Other: Voiding Method Indwelling Catheter External Catheter ABP, PAP, CO, CI - Last Documented Arterial Blood Pressure 97/45 - Exam No acute distress, extubated, currently on 2-3 L nasal cannula. HEENT examination is grossly unremarkable. Neck supple. Full range of motion. No adenopathy thyromegaly or neck vein distention. Cardiovascular examination reveals regular rhythm rate. S1-S2 normal. No S3 or S4. No discernible murmur noted. Heart sounds are distant. The patient's rhythm is irregular consistent with atrial fibrillation. Lungs reveal scattered rhonchi and crackles. No wheezes. Breath sounds equal. Diminished breath sound lung bases specially on the left. Aeration of the left lung base improved following the thoracentesis. Abdomen soft bowel sounds are heard. No masses or tenderness. Extremities are intact. No cyanosis clubbing or edema. Skin is without rash or lesion. Neurologic examination is brief, but nonfocal. - Labs CBC & Chem 7: 11/06/23 06:20 11/06/23 06:20 Labs: Abnormal Lab Results - Last 24 Hours (Table) 11/06/23 11/06/23 Range/Units 06:20 06:20 WBC 3.1 L (3.8-10.6) k/uL RBC 3.82 L (4.30-5.90) m/uL Hgb 11.5 L (13.0-17.5) gm/dL Hct 36.0 L (39.0-53.0) % RDW 15.7 H (11.5-15.5) % Plt Count 103 L (150-450) k/uL Lymphocytes # 0.8 L (1.0-4.8) k/uL Sodium 132 L (137-145) mmol/L Potassium 3.4 L (3.5-5.1) mmol/L Carbon Dioxide 32 H (22-30) mmol/L Assessment and Plan Plan: Acute hypoxic respiratory compromise/failure, secondary to Ativan administration, requiring intubation and mechanical ventilation, October 28, 2023. Currently on 02 at 3 liters, comfortable and respiratory status is stable. The patient was extubated on 10/30/2023. The patient continues to have signs of fluid overload with bilateral pleural effusion. The patient is postthoracentesis of the left lung and the procedure was self was successful with evacuation of 1.8 L of pleural fluid from the left lung. Bilateral pleural effusions, left more than right, status post thoracentesis of left lung and the patient remains on diuretics Suspect bilateral pneumonia with ongoing consolidation of the left lung base. The sputum sample was positive for oxacillin sensitive Staphylococcus aureus tracheobronchitis/bronchopneumonia. The patient is currently completing a course of Levaquin. Systolic heart failure , EF 20% MARK, recovered and the patient has evidence of nephrolithiasis and left hydronephrosis Left renal hydronephrosis with transition point within the distal left ureter, rule out the ureteral mass. Rule out nephrolithiasis and stone. The patient has hydronephrosis on the left. The patient will be seen by urology and CT urogram was also ordered. Left-sided pleural effusion. Status post thoracentesis and removal of 1.8 L of pleural fluid History of CVA. History of atrial fibrillation. Metabolic alkalosis, secondary to hypokalemia, and diuretic-induced volume contraction. Hypothyroidism. Gastroesophageal reflux disease. History of myocardial infarction. History of hypertension. History of ongoing tobacco use. History of chronic alcohol abuse. Pressure ulcer in the sacrum, DTI Plan Keep the patient on oxygen 3 L of oxygen by nasal cannula will wean down FiO2 as tolerated Continue Lasix 40 mg IV every 12 hours and Zaroxolyn 5 mg p.o. daily IV fluids to KVO Repeat chest x-ray in the morning Anticoagulation can be restarted is appreciated and the patient is going to undergo a CT urogram. Urology consultation Provide the patient is status parameter continue metoprolol for now Complete the course of Levaquin, this was started on 11/01/2023 Will continue to follow
--- NOTE | 2023-11-06 14:21 | P.PCN ---
Date of Procedure: 11/06/23 Preoperative Diagnosis: Effusion, left Postoperative Diagnosis: Pleural effusion, left Procedure(s) Performed: Thoracentesis, left-sided Anesthesia: local Surgeon: Kj Woods Estimated Blood Loss (ml): 0 Pathology: other Condition: stable Operative Findings: A time out was performed and the chest x-ray was reviewed, the appropriate side was confirmed and marked. My hands were washed immediately prior to the procedure. I wore a surgical cap, mask with protective eyewear, sterile gown and sterile gloves throughout the procedure. The patient was prepped and draped in a sterile manner using chlorhexidine scrub after the appropriate level was percussed and confirmed by ultrasound. 1% lidocaine was used to anesthesize the skin, subcutaneous tissue, superior aspect of the rib periosteum and parietal pleura. A finder needle was then introduced over the superior aspect of the rib to locate the pleural fluid; 2colored fluid was aspirated at a depth of approximately 2 cm. A 10-blade scalpel was used to guy the skin at the insertion site. The [id number] needle was then introduced through the skin incision into the pleural space using negative aspiration pressure and the red colometric indicator to confirm appropriate positioning of the needle. The thoracentesis catheter was then threaded without difficulty. 1800 ml of turbid colored fluid was removed without difficulty. The catheter was then removed. No immediate complications were noted during the procedure. A post-procedure chest x-ray is pending at the time of this note. The fluid will be sent for studies. Estimated blood loss is 0cc
[2023-11-06] MEDS: COLCHICINE 0.6 MG EACH PO SCH (14:51)
[2023-11-06 16:27] LABS: Appearance,BF Clear (Clear)
[2023-11-06 16:47] LABS: Glucose,Whole Blood 154 mg/dL (70-110)
[2023-11-06 19:28] LABS: Glucose, BF Source Pleural Fluid; Glucose, Body Fluid 104 mg/dL; LDH, Body Fluid Source Pleural Fluid; T. Protein, Body Fluid Source Pleural Fluid; Total Protein, Body Fluid 1500 mg/dL
[2023-11-06 19:39] LABS: Glucose,Whole Blood 132 mg/dL (70-110)
[2023-11-06] MEDS: APIXABAN 5 MG TAB PO SCH (20:26)
--- NOTE | 2023-11-07 11:23 | P.PN ---
Subjective HISTORY OF PRESENT ILLNESS: Patient examined this morning at bedside. Patient is laying flat in bed and appears comfortable. No complaints of chest pain or shortness of breath. Vital signs are stable. PHYSICAL EXAM: VITAL SIGNS: Reviewed. GENERAL: Well-developed in no acute distress. NECK: Supple. No JVD or thyromegaly LUNGS: Respirations even and unlabored. Lungs essentially clear to auscultation bilaterally. HEART: Regular rate and rhythm. S1 and S2 heard. EXTREMITIES: Normal range of motion. No clubbing or cyanosis. Peripheral p ulses intact. No lower extremity edema ASSESSMENT: HFrEF, acute on chronic; LV EF 20% Persistent A-fib with controlled ventricular rate Left-sided pleural effusion, awaiting thoracentesis Encephalopathy, metabolic. History of hypertension. EtOH abuse. History of CVA/TIA. History of myocardial infarction. PLAN: Continue current cardiac medications No further inpatient recommendations from a cardiac standpoint We will sign off. Please reconsult if needed. Nurse practitioner note has been reviewed by physician. Signing provider agrees with the documented findings, assessment, and plan of care documented by LE[employer]IST as a scribe. Objective - Vital Signs Vital signs: Vital Signs Temp 98.1 F 11/07/23 08:00 Pulse 100 11/07/23 08:31 Resp 18 11/07/23 08:00 BP 95/58 11/07/23 08:00 Pulse Ox 95 11/07/23 08:17 FiO2 4 11/02/23 12:00 Intake & Output 11/06/23 11/07/23 11/07/23 18:59 06:59 18:59 Intake Total 250 240 Output Total 1900 Balance -1650 240 Weight 85 kg 74.5 kg Intake: Oral 250 240 Output: Urine 1900 Other: Voiding Method External Catheter External Catheter External Catheter ABP, PAP, CO, CI - Last Documented Arterial Blood Pressure 97/45 - Labs CBC & Chem 7: 11/06/23 06:20 11/06/23 06:20 Labs: Abnormal Lab Results - Last 24 Hours (Table) 11/06/23 11/06/23 Range/Units 16:46 19:37 POC Glucose (mg/dL) 154 H 132 H (70-110) mg/dL Microbiology - Last 24 Hours (Table) 11/06/23 10:30 Gram Stain - Preliminary Pleural Fluid
[2023-11-07 11:51] LABS: Glucose,Whole Blood 120 mg/dL (70-110)
--- NOTE | 2023-11-07 14:31 | P.PN ---
Subjective Progress Note Date: 11/07/23 Pulmonary consult dated October 28, 2023. This is a 73-year-old male who presented to the emergency department, on October 27, shortly after 12 AM. The patient came in with multiple complaints including chest pain, and weakness. Apparently, the patient has been living in squalid conditions at home, and was unable to take care of his animals, including a dog and a cat, and his living condition apparently has been significant for him. He apparently has not gotten out of bed for 3 to 4 days, according to the ER shreya. We were asked to see the patient because of pleural effusion. We saw the patient down in the emergency department, room #8. The patient was very lethargic and somnolent, having received Ativan recently, because of concerns of alcohol withdrawal syndrome. The patient was on O2 at 3 L. He was found to have a left-sided pleural effusion, and atrial fibrillation, he was placed on Cardizem at 5 mg an hour. The patient apparently has a history of CVA, atrial fibrillation, gastroesophageal reflux disease, myocardial infarction, hypertension, and is a smoker, and drinks heavily. Current labs include a white count 5.2, hemoglobin 13.6, hematocrit 42.3, and a normal platelet count. PT was 13.3 with an INR of 1.3. Blood gases showed a pO2 of 87, pCO2 of 45, and a pH of 7.28. Sodium 141, potassium 3.9, chlorides 106, CO2 25, anion gap 10, BUN 16, creatinine 1.43. The patient's troponin was 0.061. N-terminal proBNP was 22,700. The patient's TSH was 19. Albumin was 3.4. Urine showed trace protein, trace blood, rare sediment. Serum alcohol was less than 10. Brain CT showed nothing acute. Initial chest x-ray showed a large left pleural effusion. CT angiogram was negative for pulmonary embolism, and showed primarily volume overload, with ascites, and pleural effusion. CT of the abdomen showed moderate left renal hydronephrosis, volume overload, and a cirrhotic liver among other things. Ultrasound of the left chest reveals a 9.1 cm pocket of fluid on the l eft side, with nothing on the right side. The patient continued to receive Ativan in the emergency department, and became so somnolent, he essentially had near respiratory arrest, and was electively intubated, for airway protection and respiratory support. His post intubation chest x-ray showed a properly placed endotracheal tube. Progress note dated October 29, 2023. The patient is seen today in room 252. He remains on the mechanical ventilator. He was intubated yesterday, for impending respiratory failure, lethargy, and somnolence. Current ventilator settings include volume assist-control, rate 16, tidal volume 450, FiO2 50%, and PEEP of 5. Blood gases show pO2 71, pCO2 of 34, and a pH of 7.47. Currently, the patient is on saline at 10 cc an hour and propofol at 20 mcg/kg/min. He had an uneventful night according to the nurses. White count 6.2, hemoglobin 12.4, hematocrit 38.6, platelet count 138,000. Sodium 140, potassium 2.6, chlorides 109, CO2 22, anion gap 9, BUN 14, c reatinine 1.22. Glucose 101. Calcium 8.3. Albumin 2.6. Chest x-ray suggest fluid overload/CHF, and a large left-sided pleural effusion. Progress note dated October 30, 2023. The patient is seen today again in room 252. He remains on the mechanical ventilator. The patient did have a daily interruption of sedation yesterday, with an attempted spontaneous breathing trial, but he did poorly. He remains on volume assist-control, rate 16, tidal volume 450, FiO2 50%, PEEP of 5. Blood gases show pO2 of 83, pCO2 of 38, pH of 7.50. Venous blood gases are consistent with a metabolic alkalosis. His metabolic alkalosis is likely secondary to hypokalemia, and diuretic induced volume contraction. The patient is on propofol at 30 mcg/kg/min, saline at 20 cc an hour, and vital AF 1.2 at 40 with a goal of 50 cc an hour. After his potassium is corrected, the patient will have another attempt at weaning. White count is 6.7, hemoglobin 12.1, hematocrit 36.7, platelet count 140,000. Sodium 134, potassium 3.3, chlorides 105, CO2 27, BUN 14, creatinine 1.22. Glucose is 147. Calcium 8.1. Sputum sampling is negative for pending. Chest x-ray continues to show bilateral pleural effusions, and mild volume overload. Progress note dated October 31, 2023. The patient is seen today in room 252. The patient was extubated successfully yesterday, October 29. Currently, he is on 6 L of oxygen. He is getting saline at 10 cc an hour. He still a bit lethargic. Other than that, he had an unev entful night according to the nurses. Current laboratory data includes a white count 7.7, hemoglobin 12.2, hematocrit 38, and a platelet count of 144,000. Sodium 139, potassium 4.1, chlorides 104, CO2 29, BUN 17, creatinine 1.35. Glucose 103. Calcium is 8.6. Procalcitonin level 0.42. Sputum from October 27, shows evidence of Staphylococcus aureus. Chest x-ray shows opacification, in both lungs, left greater than right. There appears to be a left-sided pleural effusion. There may be a small effusion on the right. Progress note dated November 01, 2023. 73-year-old male seen again in room 252. The patient continues on oxygen at 4 L. He is getting saline at 5 cc an hour, which will be converted to D5 with lactated Ringer's at 75 cc an hour. The sputum sample was positive for oxacill in sensitive Staphylococcus aureus. We placed him on Levaquin 500 mg a day. I am going to discontinue all of the Ativan as it may be causing his mental status not to be as sharp. Labs include a white count 5.1, hemoglobin 11.7, hematocrit 36.8, platelet count 121,000. Sodium 140, potassium 3.7, chloride 98, CO2 28, BUN 18, creatinine 1.13. Calcium is 8.7. Chest x-ray shows a left-sided pleur al effusion, and bilateral midlung infiltrates, as well as mild pulmonary edema. Progress note dated November 02, 2023. 73-year-old male seen today in room 252. The patient is currently on 4 L oxyg en. He is getting dextrose with lactated Ringer's at 75 cc an hour. The patient was agitated through the night, and Haldol, was given once, but did not seem to help. Today we add Seroquel, 25 mg 3 times a day. Will also add a nicotine patch. Current laboratory data includes a white count 4, hemoglobin 11.5, hematocrit 36.2, and a platelet count of 133,000. Sodium 135, potassium 4, chlorides 107, CO2 27, BUN 16, creatinine 0.93. Troponin 0.026. Calcium 8.9. Glucose 109. Sputum revealed evidence of oxacillin sensitive Staph aureus. The patient was started on Levaquin. Progress note dated November 03, 2023. 73-year-old male seen today in room 252. The patient continues on nasal O2 at 3 L. He is getting dextrose for lactated Ringer's at 75 cc an hour. He continues on oral Levaquin. The patient can be discharged from the intensive care unit. He has been very stable. Intermittent periods of brief agitation. He seems to be doing better on Seroquel. White count 2.8, hemoglobin 11.2, hematocrit 35.2, platelet count 106,000. Sodium 138, potassium 3.5, chlorides 108, CO2 28, BUN 12, creatinine 0.90. Glucose is 93. Calcium is 8.8. On 11/04/2023, the patient is being seen for a follow-up. This morning, the patient is calm and comfortable, he denies having any new complaints. Is resting comfortably in bed. As mentioned earlier, the patient is status post acute hypoxic respiratory failure requiring intubation mechanical ventilation patient is currently off the Suboxone by nasal cannula. He does have MSSA in the sputum and the patient is covered with Levaquin accordingly. He is known to have systolic heart failure with impaired ejection fraction of 20%. He did have an acute kidney injury at time of admission and the renal function gradually improved and is currently normalized. Nevertheless, the CAT scan of the abdomen initially showed evidence of hydronephrosis and this needs to be further followed up. Based on that, ultrasound of the kidneys was ordered to assess for ongoing hydronephrosis. I reviewed his previous chest x-ray there was evidence of pleural effusion. This could be representing CHF. The follow-up chest x-ray is obviously needed to reevaluate for ongoing presence of pleural effusion specially on the left. For now, the patient is no diuretics. He is on IV fluids which is running at 75 cc an hour. He does have a stage I sacral decub ulcer which is being managed conservatively and the patient has an Optifoam in place. White circles of 3.8 with hemoglobin 12.1 and a platelet count of 133. BUN is 12 with a creatinine of 1.0. He remains in atrial fibrillation. Other comorbidities include hypertension, coronary artery disease with previous MN, hypothyroidism, and history of alcoholism. His mental status is stable for now. No evidence of any encephalopathy. He is awake and alert and communicating and answering questions appropriately. On today's evaluation of 11/05/2023, the patient is being seen for a follow-up. Overall condition is stable and the patient has no interval worsening shortness of breath. The patient is currently on diuretics and the patient is receiving IV Lasix. Fluid balance has been essentially not well-documented. I am going to increase the diuretics and I am going to increase the dose of Lasix and start the patient also on Zaroxolyn. The goal is to achieve a negative fluid balance over the next 24 hours. Chest x-ray from yesterday showed evidence of stable diffuse pleural-parenchymal changes along with findings consistent with CHF. The patient is known to have underlying cardiomyopathy with impaired LV function. Ultrasound the kidneys also showed bilateral nephrolithiasis with moderate left hydronephrosis. There was small amount of ascites and pleural effusion and the patient will be seen by urology. Otherwise, BUN is at 30 with a creatinine of 1.1. Sodium is at 136 with a potassium level of 3.8. Chloride is 104 with a bicarb level of 28. On a separate note, the patient remains on Levaquin for MSSA in the sputum. Anticoagulation was placed on hold and consi deration for thoracentesis based on the chest x-ray from tomorrow. No encephalopathy. Mental status is appropriate for now. Wound care is also being performed. 11/06/2023, seen the pulmonary follow-up in the intensive care unit. The patient is doing well with no specific complaints. Remains on oxygen at 4 L/min nasal cannula. Still being diuresed with IV Lasix and oral Zaroxolyn. Fluid balance is -4.9 L over the past 24 hours. A bedside thoracentesis was done and a total of 1.8 L of pleural fluid was aspirated from the left hemithorax without any complications. The blood work from today shows a white cell count of 3.1, hemoglobin of 11.5 and a platelet count of 103. Sodium is at 132, potassium is at 3.4, BUN 15 with a creatinine of 0.95. The procedure was done without any complication. Postoperative chest x-ray showed resolution of the left-sided pleural effusion and there is no evidence of any pneumothorax. There is a small right-sided pleural effusion still present. On a separate note, the patient was seen by urology. The patient has a left ureteral mass with hydronephrosis. He is having some intermittent gross hematuria. Currently this problem is an active complaint. The patient is to be seen by urology and a CT urogram was also ordered and eventually he may need a cystoscopy. On 11/07/2023, the patient is being seen for a follow-up. Patient is left intensi ve. The patient is currently in the medical floor. The patient is calm and comfortable. No significant respiratory distress. Following the thoracentesis, oxygenation further improved and the patient is currently on room air oxygen. Otherwise, he has no other specific complaints for now. He is producing enough amount of urine output. Labs from today shows a white cell count of 3, hemoglobin 11.5 and a platelet count of 103. BUN 13 with a creatinine of 0.9 and sodium is at 142. The overall fluid balance is negative over the past 24 hours in the order of 4.9 L. Meanwhile, patient remains on Zaroxolyn 5 mg p.o. daily. The patient was taken off the Lasix. Rest of the medications remain unchanged. Continuing a course of Levaquin regarding MSSA in the sputum. The results of the Awaiting further consultation from urology regarding CT urogram that showed a ureteral wall mass/thickening with left-sided hydronephrosis. And poor left renal excretion. Possibility of transitional cell carcinoma within the ureter cannot be completely ruled out. No evidence of any renal calculus. Objective - Vital Signs Vital signs: Vital Signs Temp 98.1 F 11/07/23 08:00 Pulse 100 11/07/23 11:47 Resp 18 11/07/23 11:36 BP 90/50 11/07/23 11:36 Pulse Ox 90 L 11/07/23 11:36 FiO2 4 11/02/23 12:00 Intake & Output 11/06/23 11/07/23 11/07/23 18:59 06:59 18:59 Intake Total 250 240 Output Total 1900 Balance -1650 240 Weight 85 kg 74.5 kg Intake: Oral 250 240 Output: Urine 1900 Other: Voiding Method External Catheter External Catheter External Catheter ABP, PAP, CO, CI - Last Documented Arterial Blood Pressure 97/45 - Exam No acute distress, extubated, currently on room air oxygen HEENT examination is grossly unremarkable. Neck supple. Full range of motion. No adenopathy thyromegaly or neck vein distention. Cardiovascular examination reveals regular rhythm rate. S1-S2 normal. No S3 or S4. No discernible murmur noted. Heart sounds are distant. The patient's rhythm is irregular consistent with atrial fibrillation. Lungs reveal scattered rhonchi and crackles. No wheezes. Breath sounds equal. Diminished breath sound lung bases specially on the left. Aeration of the left lung base improved following the thoracentesis. Abdomen soft bowel sounds are heard. No masses or tenderness. Extremities are intact. No cyanosis clubbing or edema. Skin is without rash or lesion. Neurologic examination is brief, but nonfocal. - Labs CBC & Chem 7: 11/06/23 06:20 11/06/23 06:20 Labs: Abnormal Lab Results - Last 24 Hours (Table) 11/06/23 11/06/23 11/07/23 Range/Units 16:46 19:37 11:50 POC Glucose (mg/dL) 154 H 132 H 120 H (70-110) mg/dL Microbiology - Last 24 Hours (Table) 11/06/23 10:30 Gram Stain - Preliminary Pleural Fluid Assessment and Plan Plan: Acute hypoxic respiratory compromise/failure, secondary to Ativan administration, requiring intubation and mechanical ventilation, October 28, 2023. The patient was extubated on 10/30/2023. The patient continues to have signs of fluid overload with bilateral pleural effusion. The patient is p ostthoracentesis of the left lung and the procedure was self was successful with evacuation of 1.8 L of pleural fluid from the left lung. Oxygenation is improved and the patient is currently on room air oxygen. Bilateral pleural effusions, left more than right, status post thoracentesis of left lung and the patient remains on diuretics and the patient is currently on Zaroxolyn with excellent urine output. Suspect bilateral pneumonia with ongoing consolidation of the left lung base. The sputum sample was positive for oxacillin sensitive Staphylococcus aureus tracheobronchitis/bronchopneumonia. The patient is currently completing a course of Levaquin. Systolic heart failure , EF 20% MARK, recovered and the patient has evidence of nephrolithiasis and left hydronephrosis Left renal hydronephrosis with transition point within the distal left ureter, rule out the ureteral mass. Rule out nephrolithiasis and stone. The patient has hydronephrosis on the left. The patient will be seen by urology and CT urogram was also ordered. The CT urogram showed possibility of a mass obstructing left ureter, consider possibility of transitional cell carcinoma causing mechanical obstruction. Urology on the case. Left-sided pleural effusion. Status post thoracentesis and removal of 1.8 L of pleural fluid History of CVA. History of atrial fibrillation. Metabolic alkalosis, secondary to hypokalemia, and diuretic-induced volume contraction. Hypothyroidism. Gastroesophageal reflux disease. History of myocardial infarction. History of hypertension. History of ongoing tobacco use. History of chronic alcohol abuse. Pressure ulcer in the sacrum, DTI Plan Keep the patient on oxygen on room air Continue Zaroxolyn 5 mg p.o. daily IV fluids to KVO Urology consultation is appreciated Provide the patient is incentive spirometer continue metoprolol for now Anticoagulation with Eliquis Complete the course of Levaquin, this was started on 11/01/2023 Will continue to follow
[2023-11-07 16:04] LABS: Glucose,Whole Blood 103 mg/dL (70-110)
--- NOTE | 2023-11-07 19:14 | P.PN ---
Subjective Progress Note Date: 11/07/[address] urogram yesterday, confirmed evidence of left distal ureteral mass, discussed the finding with the patient. At this time denies any flank pain or gross hematuria. Objective - Vital Signs Vital signs: Vital Signs Temp 97.6 F 11/07/23 15:50 Pulse 96 11/07/23 15:53 Resp 16 11/07/23 15:50 BP 100/65 11/07/23 15:50 Pulse Ox 100 11/07/23 15:50 FiO2 4 11/02/23 12:00 Intake & Output 11/07/23 11/07/23 11/08/23 06:59 18:59 06:59 Intake Total 898 Output Total 250 Balance 648 Weight 74.5 kg Intake: Oral 898 Output: Urine 250 Other: Voiding Method External Catheter External Catheter # Voids 2 ABP, PAP, CO, CI - Last Documented Arterial Blood Pressure 97/45 - Constitutional General appearance: Present: no acute distress - Gastrointestinal General gastrointestinal: Present: soft. Absent: distended, tenderness - Psychiatric Psychiatric: Present: A&O x's 3 - Labs CBC & Chem 7: 11/06/23 06:20 11/06/23 06:20 Labs: Abnormal Lab Results - Last 24 Hours (Table) 11/06/23 11/07/23 Range/Units 19:37 11:50 POC Glucose (mg/dL) 132 H 120 H (70-110) mg/dL Microbiology - Last 24 Hours (Table) 11/06/23 10:30 Gram Stain - Preliminary Pleural Fluid Body Fluid Culture - Preliminary Assessment and Plan Assessment: 73-year-old male with finding of left distal ureteral mass, had a prolonged discussion with the patient discussed with him he will require diagnostic ureteroscopy to further evaluate that lesion. Discussed with him this is concerning for ureteral malignancy. At this time he will be set up for an outpatient left-sided diagnostic ureteroscopy to evaluate further, risk-benefit and rationale of surgery was discussed with him in details.
[2023-11-07 20:10] LABS: Glucose,Whole Blood 123 mg/dL (70-110)
[2023-11-08 05:45] LABS: Glucose,Whole Blood 101 mg/dL (70-110)
[2023-11-08 08:44] LABS: African American GFR (CKD) 84 (>60 ml/min/1.73 sqM); Anion Gap 6 mmol/L; Blood Urea Nitrogen 15 mg/dL (9-20); Calcium 8.5 mg/dL (8.4-10.2); Carbon Dioxide 30 mmol/L (22-30); Chloride 96 mmol/L (98-107); Glucose 103 mg/dL (74-99); Magnesium 1.5 mg/dL (1.6-2.3); Non-African American GFR(CKD) 73 (>60 ml/min/1.73 sqM); Potassium 3.4 mmol/L (3.5-5.1); Sodium 132 mmol/L (137-145)
--- NOTE | 2023-11-08 09:24 | P.PN ---
Subjective Progress Note Date: 11/07/23 This is a 73-year-old male who presented to the emergency department via EMS with reports from the emergency department that patient was altered and debilitated in his living situation at home is very unkempt including multiple animals who appear malnourished and on care for as well. Unsure of last primary care provider and any compliance to follow-up in the outpatient setting. Per medical record patient does have a history of atrial fibrillation with documented medication refills by mine development engineer Dr. Moralez earlier this year, history of CVA/TIA, GERD, hypertension, previous myocardial infarction, former smoker and significant daily EtOH use. Patient was admitted initially to [facility] for altered mental status with acute NSTEMI and weakness with debility, possible alcohol withdrawal and atrial fibrillation uncontrolled with RVR. EKG showed atrial fibrillation with RVR and heart rate was 105, brain CT was performed showing no acute hemorrhage hydrocephalus or mass effect. Chest x-ray showed severe left pleural effusion with cardiomegaly. Patient was started on CIWA protocol and also 2 to 3 L via nasal cannula. Patient did undergo CT angio of the chest with no evidence of PE within the pulmonary outflow tract or immediate proximal branches, significant sequela of volume overload with mesenteric ascites and pleural effusions with cirrhotic morphology of the liver and cardiomegaly. Chest ultrasound was performed and left side was marked for possible thoracentesis. The left pleural effusion pocket size is 9.1 cm. Labs reviewed and patient had a normal white count of 5.2, hemoglobin was 13.6, platelets 176, INR 1.3, ABG showed a low pH of 7.28 O2 saturation was 95%. Sodium was 141 with a potassium of 3.9, BUN 16, creatinine mildly elevated at 1.43. Initial lactic acid was 2.1 and repeat remained the same and patient did receive a liter of fluids while in the ER and was continued on normal saline at a rate of 130 mL/h. Later patient did have a BNP drawn which significantly elevated at 22,700. TSH also found to be abnormal at 19 although free T4 was normal at 1.32. Albumin was 3.4. Urinalysis was done and negative and serum alcohol was noted to be less than 10. Troponins were also mildly elevated at 0.061 and trending up. Patient noted to be restless per nursing staff in the ER and was given an additional dose of Valium along with Ativan and then became obtunded and nonresponsive and ultimately required mechanical ventilation to protect airway. Patient is now admitted to the ICU and is being started on Lasix. Cardizem was initiated as well and patient has since converted and Cardizem has been placed on hold. Cardiac/pulmonary have been consulted. Pierre rocha is currently intubated with an FiO2 of 100% and PEEP of 5 maintaining oxygen saturations above 90%. 10/29/2023 Patient seen in follow-up in the ICU continues on mechanical patient continues in the ICU on mechanical ventilation, FiO2 is 50% with PEEP of 5. Patient remains on propofol with multiple consultations following. Patient not requiring pressor support and is maintained on IV Lasix and diuresing. Patient with wounds to bilateral lower extremities with wound care on consult. Overall prognosis is guarded at this time. 10/30/2023 Patient is seen in follow-up today continues to be in the ICU on mechanical ventilation with an FiO2 of 50% and PEEP is 5. Patient did undergo sedation weaning trial although not tolerating and will be continued on sedation. Patient becomes tacky and restless and thrashing during the sedation weaning. Sputum culture preliminary showing presumptive staph and patient is maintained on antibiotics. Continue local wound care and frequent offloading to the buttock area. Patient potassium 3.3 and will be replaced per protocol today. Patient continues with a large left pleural effusion and was maintained on IV Lasix which has been discontinued. Patient is making adequate urine per nursing staff and continues with indwelling Yeung catheter. ----Patient was successfully extubated yesterday. Patient able to respond to yes/no questions but not able to vocalize. He is currently in Afib with a HR in the 90-100s up to 120s and BP of 90s-100 s/60s. Not currently on Cardizem. Echo revealed LV EF 20%, severe biatrial dilatation, trace mitral regurgitation, and moderate tricuspid regurgitation. Current laboratory data includes a white count 7.7, hemoglobin 12.2, hematocrit 38, and a platelet count of 144,000. Sodium 139, potassium 4.1, chlorides 104, CO2 29, BUN 17, creatinine 1.35. Glucose 103. Calcium is 8.6. Procalcitonin level 0.42. Sputum from October 27, shows evidence of Staphylococcus aureus. Chest x-ray shows opacification, in both lungs, left greater than right. There appears to be a left-sided pleural effusion. 11/01/2023 Patient is seen and evaluated in room at bedside; was extubated successfully yesterday, October 29. Currently, he is on 6 L of oxygen. He is getting saline at 10 cc an hour. He still a bit lethargic. Other than that, he had an uneventful night according to the nurses. Lab review shows a white count 7.7, hemoglobin 12.2, hematocrit 38, and a platelet count of 144,000. Sodium 139, potassium 4.1, chlorides 104, CO2 29, BUN 17, creatinine 1.35. Glucose 103. Calcium is 8.6. Procalcitonin level 0.42. Sputum from October 27, shows evidence of Staphylococcus aureus. Chest x- ray shows opacification, in both lungs, left greater than right. There appears to be a left-sided pleural effusion. There may be a small effusion on the right. Patient remains in ICU-plan is to start patient on antibiotic once final culture reports are available 11/02/2023 Patient remains in ICU; and evaluated with sitter at bedside; patient was agitated yesterday evening and through the night; received Haldol which did not help; Seroquel has been added 25 mg 3 times daily -- currently on 4 L oxygen. He is getting dextrose with lactated Ringer's at 75 cc an hour. The patient was agitated through the night, and Haldol, was given once, but did not seem to help. Today we add Seroquel, 25 mg 3 times a day. -- Current laboratory data includes a white count 4, hemoglobin 11.5, hematocrit 36.2, and a platelet count of 133,000. Sodium 135, potassium 4, chlorides 107, CO2 27, BUN 16, creatinine 0.93. Troponin 0.026. Calcium 8.9. Glucose 109. Sputum revealed evidence of oxacillin sensitive Staph aureus. The patient was started on Levaquin. 11/02 Patient is sleeping this morning, he did not sleep well last night He is currently on 3 L oxygen via nasal cannula Getting D5 Ringer lactate at 75 mL/h A plan to undergo swallow evaluation today with the expectation he would pass it Yeung catheter in place with small amount of dark-colored urine, creatinine 0.9 Cozaar was held today because of borderline hypotension with systolic blood pres sure was 98 there is a Sitter at bedside and patient remains lethargic 11/05/2023 Patient is seen in follow-up continues to be in the ICU currently maintained on 3 L via nasal cannula. Patient is tolerating diet although having some nausea today. Patient's mentation is improved although continues with some periods of confusion. Awaiting PT/OT therapy eval and social work consult regarding discharge planning. Patient is stable for transfer out of the ICU and awaiting a bed. Patient is afebrile and denies chest pain or worsening shortness of breath. continue to encourage IS and wean FI02 as tolerated. 11/06/2023 Patient seen in follow-up today as a downgrade from the ICU once a bed is available. Blood pressures have been marginal and on the lower side although patient was maintained on IV Lasix along with metolazone per pulmonary bush and vine farmer fruit crops. Patient is diuresing well and also underwent thoracentesis on the left with approximately 2 L removed. Patient continues on 2 L with a oxygen saturation of 98% and working to wean FiO2 as tolerated. Patient was continued on IV Lasix twice daily and does continue with volume overload noted of the lower extremities and would likely benefit from at least daily. Will discuss with pulmonary bush and vine farmer fruit crops as sodium is lower at 132, potassium is 3.4 and magnesium is 1.6. Recommend replace electrolytes per protocol. Blood sugars have been monitored and within normal limits and will continue current regimen. Continue to work with patient with physical therapy and also social work as patient lives alone and does have a brother that lives next-door. Strongly recommend rehab on discharge as patient has had prolonged hospitalization and significant weakness. Patient also having left knuckle pain with swelling and redness with history of gout. 11/07/2023 Patient is seen and evaluated in follow-up today with no acute overnight issues noted. Patient continues with significant weakness recommending PT/OT therapy daily. Patient reports he plans on returning home although feel this is an extremely unsafe discharge plan as there are family members reporting he has very unkempt living with social work following and APS is being involved. Patient will likely need ECF on discharge. Patient is maintained on metolazone although would likely benefit from Lasix and will follow-up with repeat labs. Replace electrolytes per protocol. Encouraged oral intake and recommend aspiration precautions. Review of systems: Constitutional: No reports of fatigue, fever, or chills Cardiovascular: No reports of chest pain or palpitations Respiratory: No reports of worsening shortness of breath or cough GI: No reports of nausea, vomiting, or diarrhea, patient had an episode of nausea with no vomiting : No reports of dysuria or retention Neurovascular: reports of generalized weakness All medications have been reviewed PHYSICAL EXAMINATION: GENERAL: The patient is more awake today. No acute distress, alert and oriented x 2-3, baseline, well-developed, elderly appearing HEENT: Pupils are round and equally reacting to light. EOMI. No scleral icterus. No conjunctival pallor. Normocephalic, atraumatic. No pharyngeal erythema. No thyromegaly. CARDIOVASCULAR: S1 and S2 present. No murmurs, rubs, or gallops. PULMONARY: Diminished breath sounds bilaterally otherwise chest is clear to auscultation, no wheezing , no crackles. Improved aeration of the right lung ABDOMEN: Soft, nontender, nondistended, normoactive bowel sounds. No palpable organomegaly. MUSCULOSKELETAL: No joint swelling or deformity. EXTREMITIES: No cyanosis, clubbing, or pedal edema. Bilateral lower extremity edema 1+ pitting noted, left knuckle red and swollen with intense pain on palpation NEUROLOGICAL: Gross neurological examination did not reveal any focal deficits. Diffusely weak SKIN: No rashes. no petechiae. 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 Tracheobronchitis on Levaquin Large left pleural effusion with a BNP of 22,000, status post thoracentesis with approximately 2 L removed on 11/06/2023 Left index finger knuckle with redness and swelling, concerns for gout flareup with history of gout Elevated troponin, unsure of NSTEMI, possibly type II mismatch History of atrial fibrillation, currently atrial fibrillation with rapid ventricular, currently rate controlled History of CVA/TIA with no residual effects in 2006 History of myocardial infarction in 2019 History of GERD History of hypertension generalized weakness with gait dysfunction and inability to ambulate Stage II pressure ulcer of the left buttock, present on admission Unstageable pressure ulcer of the right buttock, present on admission Former smoker Heavy daily alcohol use and drinks about a pint of rum per day Poor social support and poor living situation Noncompliance to medication and follow-up GI prophylaxis dvt prophylaxis full code Plan: Continue with Levaquin for mssa in the sputum Continue with home dose of Eliquis 5 mg Patient is status post thoracentesis on the left side with approximately 2 L removed Patient having left index finger knuckle flareup with redness and stiffness with history of gout, likely gout flareup will start colchicine for the next few days, improving Continue on oxygen and wean as needed, currently on room air on exam Pulmonary/critical care team following closely Patient is medically stable and has been transferred out of the ICU Need PT/OT therapy and social work on consult for ecf and discharge planning. Patient reports has family next-door that can help although unsure of a safe discharge plan as living situation was inadequate on arrival from EMS. Will need to discuss further regarding discharge planning as PT/OT therapy recommending rehab. Patient with significant weakness and prolonged hospitalization would benefit from ECF on discharge. Social work following and likely reported to APS as there is a niece reporting his house is unkept and unsafe for him to return. The impression and plan of care has been dictated by Linda Diop, Nurse Practitioner as directed. Dr. Anastacio MD I have performed a history and examination and MDM of this patient, discussed the same with the dictator, and agree with the dictator's assessment and plan as written ,documented as a scribe. Based on total visit time, I have performed more than 50% of the visit. Objective - Vital Signs Vital signs: Vital Signs Temp 98.4 F 11/06/23 20:00 Pulse 100 11/07/23 08:31 Resp 20 11/07/23 03:51 BP 96/53 11/07/23 03:51 Pulse Ox 95 11/07/23 08:17 FiO2 4 11/02/23 12:00 Intake & Output 11/06/23 11/07/23 11/07/23 18:59 06:59 18:59 Intake Total 250 240 Output Total 1900 Balance -1650 240 Weight 85 kg 74.5 kg Intake: Oral 250 240 Output: Urine 1900 Other: Voiding Method External Catheter External Catheter ABP, PAP, CO, CI - Last Documented Arterial Blood Pressure 97/45 - Labs CBC & Chem 7: 11/06/23 06:20 11/08/23 06:45 Labs: Abnormal Lab Results - Last 24 Hours (Table) 11/06/23 11/06/23 Range/Units 16:46 19:37 POC Glucose (mg/dL) 154 H 132 H (70-110) mg/dL Microbiology - Last 24 Hours (Table) 11/06/23 10:30 Gram Stain - Preliminary Pleural Fluid
[2023-11-08] MEDS: POTASSIUM CHLORIDE ER 20 MEQ TAB.ER PO STA (10:20)
[2023-11-08] MEDS: MAGNESIUM SULFATE-D5W PMX 1 GM in DEXTROSE/WATER 1 100ML.BAG IVPB SCH (10:20)
[2023-11-08 11:41] LABS: Glucose,Whole Blood 110 mg/dL (70-110)
--- NOTE | 2023-11-08 13:03 | P.PN ---
Subjective Progress Note Date: 11/08/23 Pulmonary consult dated October 28, 2023. This is a 73-year-old male who presented to the emergency department, on October 27, shortly after 12 AM. The patient came in with multiple complaints including chest pain, and weakness. Apparently, the patient has been living in squalid conditions at home, and was unable to take care of his animals, including a dog and a cat, and his living condition apparently has been significant for him. He apparently has not gotten out of bed for 3 to 4 days, according to the ER shreya. We were asked to see the patient because of pleural effusion. We saw the patient down in the emergency department, room #8. The patient was very lethargic and somnolent, having received Ativan recently, because of concerns of alcohol withdrawal syndrome. The patient was on O2 at 3 L. He was found to have a left-sided pleural effusion, and atrial fibrillation, he was placed on Cardizem at 5 mg an hour. The patient apparently has a history of CVA, atrial fibrillation, gastroesophageal reflux disease, myocardial infarction, hypertension, and is a smoker, and drinks heavily. Current labs include a white count 5.2, hemoglobin 13.6, hematocrit 42.3, and a normal platelet count. PT was 13.3 with an INR of 1.3. Blood gases showed a pO2 of 87, pCO2 of 45, and a pH of 7.28. Sodium 141, potassium 3.9, chlorides 106, CO2 25, anion gap 10, BUN 16, creatinine 1.43. The patient's troponin was 0.061. N-terminal proBNP was 22,700. The patient's TSH was 19. Albumin was 3.4. Urine showed trace protein, trace blood, rare sediment. Serum alcohol was less than 10. Brain CT showed nothing acute. Initial chest x-ray showed a large left pleural effusion. CT angiogram was negative for pulmonary embolism, and showed primarily volume overload, with ascites, and pleural effusion. CT of the abdomen showed moderate left renal hydronephrosis, volume overload, and a cirrhotic liver among other things. Ultrasound of the left chest reveals a 9.1 cm pocket of fluid on the l eft side, with nothing on the right side. The patient continued to receive Ativan in the emergency department, and became so somnolent, he essentially had near respiratory arrest, and was electively intubated, for airway protection and respiratory support. His post intubation chest x-ray showed a properly placed endotracheal tube. Progress note dated October 29, 2023. The patient is seen today in room 252. He remains on the mechanical ventilator. He was intubated yesterday, for impending respiratory failure, lethargy, and somnolence. Current ventilator settings include volume assist-control, rate 16, tidal volume 450, FiO2 50%, and PEEP of 5. Blood gases show pO2 71, pCO2 of 34, and a pH of 7.47. Currently, the patient is on saline at 10 cc an hour and propofol at 20 mcg/kg/min. He had an uneventful night according to the nurses. White count 6.2, hemoglobin 12.4, hematocrit 38.6, platelet count 138,000. Sodium 140, potassium 2.6, chlorides 109, CO2 22, anion gap 9, BUN 14, c reatinine 1.22. Glucose 101. Calcium 8.3. Albumin 2.6. Chest x-ray suggest fluid overload/CHF, and a large left-sided pleural effusion. Progress note dated October 30, 2023. The patient is seen today again in room 252. He remains on the mechanical ventilator. The patient did have a daily interruption of sedation yesterday, with an attempted spontaneous breathing trial, but he did poorly. He remains on volume assist-control, rate 16, tidal volume 450, FiO2 50%, PEEP of 5. Blood gases show pO2 of 83, pCO2 of 38, pH of 7.50. Venous blood gases are consistent with a metabolic alkalosis. His metabolic alkalosis is likely secondary to hypokalemia, and diuretic induced volume contraction. The patient is on propofol at 30 mcg/kg/min, saline at 20 cc an hour, and vital AF 1.2 at 40 with a goal of 50 cc an hour. After his potassium is corrected, the patient will have another attempt at weaning. White count is 6.7, hemoglobin 12.1, hematocrit 36.7, platelet count 140,000. Sodium 134, potassium 3.3, chlorides 105, CO2 27, BUN 14, creatinine 1.22. Glucose is 147. Calcium 8.1. Sputum sampling is negative for pending. Chest x-ray continues to show bilateral pleural effusions, and mild volume overload. Progress note dated October 31, 2023. The patient is seen today in room 252. The patient was extubated successfully yesterday, October 29. Currently, he is on 6 L of oxygen. He is getting saline at 10 cc an hour. He still a bit lethargic. Other than that, he had an unev entful night according to the nurses. Current laboratory data includes a white count 7.7, hemoglobin 12.2, hematocrit 38, and a platelet count of 144,000. Sodium 139, potassium 4.1, chlorides 104, CO2 29, BUN 17, creatinine 1.35. Glucose 103. Calcium is 8.6. Procalcitonin level 0.42. Sputum from October 27, shows evidence of Staphylococcus aureus. Chest x-ray shows opacification, in both lungs, left greater than right. There appears to be a left-sided pleural effusion. There may be a small effusion on the right. Progress note dated November 01, 2023. 73-year-old male seen again in room 252. The patient continues on oxygen at 4 L. He is getting saline at 5 cc an hour, which will be converted to D5 with lactated Ringer's at 75 cc an hour. The sputum sample was positive for oxacill in sensitive Staphylococcus aureus. We placed him on Levaquin 500 mg a day. I am going to discontinue all of the Ativan as it may be causing his mental status not to be as sharp. Labs include a white count 5.1, hemoglobin 11.7, hematocrit 36.8, platelet count 121,000. Sodium 140, potassium 3.7, chloride 98, CO2 28, BUN 18, creatinine 1.13. Calcium is 8.7. Chest x-ray shows a left-sided pleur al effusion, and bilateral midlung infiltrates, as well as mild pulmonary edema. Progress note dated November 02, 2023. 73-year-old male seen today in room 252. The patient is currently on 4 L oxyg en. He is getting dextrose with lactated Ringer's at 75 cc an hour. The patient was agitated through the night, and Haldol, was given once, but did not seem to help. Today we add Seroquel, 25 mg 3 times a day. Will also add a nicotine patch. Current laboratory data includes a white count 4, hemoglobin 11.5, hematocrit 36.2, and a platelet count of 133,000. Sodium 135, potassium 4, chlorides 107, CO2 27, BUN 16, creatinine 0.93. Troponin 0.026. Calcium 8.9. Glucose 109. Sputum revealed evidence of oxacillin sensitive Staph aureus. The patient was started on Levaquin. Progress note dated November 03, 2023. 73-year-old male seen today in room 252. The patient continues on nasal O2 at 3 L. He is getting dextrose for lactated Ringer's at 75 cc an hour. He continues on oral Levaquin. The patient can be discharged from the intensive care unit. He has been very stable. Intermittent periods of brief agitation. He seems to be doing better on Seroquel. White count 2.8, hemoglobin 11.2, hematocrit 35.2, platelet count 106,000. Sodium 138, potassium 3.5, chlorides 108, CO2 28, BUN 12, creatinine 0.90. Glucose is 93. Calcium is 8.8. On 11/04/2023, the patient is being seen for a follow-up. This morning, the patient is calm and comfortable, he denies having any new complaints. Is resting comfortably in bed. As mentioned earlier, the patient is status post acute hypoxic respiratory failure requiring intubation mechanical ventilation patient is currently off the Suboxone by nasal cannula. He does have MSSA in the sputum and the patient is covered with Levaquin accordingly. He is known to have systolic heart failure with impaired ejection fraction of 20%. He did have an acute kidney injury at time of admission and the renal function gradually improved and is currently normalized. Nevertheless, the CAT scan of the abdomen initially showed evidence of hydronephrosis and this needs to be further followed up. Based on that, ultrasound of the kidneys was ordered to assess for ongoing hydronephrosis. I reviewed his previous chest x-ray there was evidence of pleural effusion. This could be representing CHF. The follow-up chest x-ray is obviously needed to reevaluate for ongoing presence of pleural effusion specially on the left. For now, the patient is no diuretics. He is on IV fluids which is running at 75 cc an hour. He does have a stage I sacral decub ulcer which is being managed conservatively and the patient has an Optifoam in place. White circles of 3.8 with hemoglobin 12.1 and a platelet count of 133. BUN is 12 with a creatinine of 1.0. He remains in atrial fibrillation. Other comorbidities include hypertension, coronary artery disease with previous MT, hypothyroidism, and history of alcoholism. His mental status is stable for now. No evidence of any encephalopathy. He is awake and alert and communicating and answering questions appropriately. On today's evaluation of 11/05/2023, the patient is being seen for a follow-up. Overall condition is stable and the patient has no interval worsening shortness of breath. The patient is currently on diuretics and the patient is receiving IV Lasix. Fluid balance has been essentially not well-documented. I am going to increase the diuretics and I am going to increase the dose of Lasix and start the patient also on Zaroxolyn. The goal is to achieve a negative fluid balance over the next 24 hours. Chest x-ray from yesterday showed evidence of stable diffuse pleural-parenchymal changes along with findings consistent with CHF. The patient is known to have underlying cardiomyopathy with impaired LV function. Ultrasound the kidneys also showed bilateral nephrolithiasis with moderate left hydronephrosis. There was small amount of ascites and pleural effusion and the patient will be seen by urology. Otherwise, BUN is at 30 with a creatinine of 1.1. Sodium is at 136 with a potassium level of 3.8. Chloride is 104 with a bicarb level of 28. On a separate note, the patient remains on Levaquin for MSSA in the sputum. Anticoagulation was placed on hold and consi deration for thoracentesis based on the chest x-ray from tomorrow. No encephalopathy. Mental status is appropriate for now. Wound care is also being performed. 11/06/2023, seen the pulmonary follow-up in the intensive care unit. The patient is doing well with no specific complaints. Remains on oxygen at 4 L/min nasal cannula. Still being diuresed with IV Lasix and oral Zaroxolyn. Fluid balance is -4.9 L over the past 24 hours. A bedside thoracentesis was done and a total of 1.8 L of pleural fluid was aspirated from the left hemithorax without any complications. The blood work from today shows a white cell count of 3.1, hemoglobin of 11.5 and a platelet count of 103. Sodium is at 132, potassium is at 3.4, BUN 15 with a creatinine of 0.95. The procedure was done without any complication. Postoperative chest x-ray showed resolution of the left-sided pleural effusion and there is no evidence of any pneumothorax. There is a small right-sided pleural effusion still present. On a separate note, the patient was seen by urology. The patient has a left ureteral mass with hydronephrosis. He is having some intermittent gross hematuria. Currently this problem is an active complaint. The patient is to be seen by urology and a CT urogram was also ordered and eventually he may need a cystoscopy. On 11/07/2023, the patient is being seen for a follow-up. Patient is left intensi ve. The patient is currently in the medical floor. The patient is calm and comfortable. No significant respiratory distress. Following the thoracentesis, oxygenation further improved and the patient is currently on room air oxygen. Otherwise, he has no other specific complaints for now. He is producing enough amount of urine output. Labs from today shows a white cell count of 3, hemoglobin 11.5 and a platelet count of 103. BUN 13 with a creatinine of 0.9 and sodium is at 142. The overall fluid balance is negative over the past 24 hours in the order of 4.9 L. Meanwhile, patient remains on Zaroxolyn 5 mg p.o. daily. The patient was taken off the Lasix. Rest of the medications remain unchanged. Continuing a course of Levaquin regarding MSSA in the sputum. The results of the Awaiting further consultation from urology regarding CT urogram that showed a ureteral wall mass/thickening with left-sided hydronephrosis. And poor left renal excretion. Possibility of transitional cell carcinoma within the ureter cannot be completely ruled out. No evidence of any renal calculus. On 11/08/2023, the patient is being seen for a follow-up. The patient has no specific complaints. The patient remains on room air oxygen. No significant cough sputum production or chest tightness or wheezing. No respiratory distress at this point in time. He is known to have COPD, cardiomyopathy and is postthoracentesis with subsequent improvement in and has respiratory status and oxygenation. Meanwhile, the patient was found to have a left distal ureteral mass and the patient denies having any flank pain or gross hematuria. He was seen by urology and the patient will need an outpatient left-sided diagnostic ureteroscopy to evaluate further. Labs from today show a BUN of 15 with a creat inine of 1 and sodium is at 132 and a potassium level is five 3.4. Remains on anticoagulation with Eliquis. Remains on Zaroxolyn 5 mg p.o. daily. Rest of the medications are essentially unchanged. Objective - Vital Signs Vital signs: Vital Signs Temp 97.7 F 11/07/23 20:18 Pulse 88 11/08/23 08:24 Resp 16 11/08/23 04:53 BP 102/73 11/08/23 04:53 Pulse Ox 95 11/08/23 08:11 FiO2 4 11/02/23 12:00 Intake & Output 11/07/23 11/08/23 11/08/23 18:59 06:59 18:59 Intake Total 898 540 240 Output Total 250 650 Balance 648 -110 240 Weight 73.5 kg Intake: Oral 898 540 240 Output: Urine 250 650 Other: Voiding Method External Catheter External Catheter # Voids 2 ABP, PAP, CO, CI - Last Documented Arterial Blood Pressure 97/45 - Exam No acute distress, extubated, currently on room air oxygen HEENT examination is grossly unremarkable. Neck supple. Full range of motion. No adenopathy thyromegaly or neck vein distention. Cardiovascular examination reveals regular rhythm rate. S1-S2 normal. No S3 or S4. No discernible murmur noted. Heart sounds are distant. The patient's rhythm is irregular consistent with atrial fibrillation. Lungs reveal scattered rhonchi and crackles. No wheezes. Breath sounds equal. Diminished breath sound lung bases specially on the left. Aeration of the left lung base improved following the thoracentesis. Abdomen soft bowel sounds are heard. No masses or tenderness. Extremities are intact. No cyanosis clubbing or edema. Skin is without rash or lesion. Neurologic examination is brief, but nonfocal. - Labs CBC & Chem 7: 11/06/23 06:20 11/08/23 06:45 Labs: Abnormal Lab Results - Last 24 Hours (Table) 11/07/23 11/07/23 11/08/23 Range/Units 11:50 20:09 06:45 Sodium 132 L (137-145) mmol/L Potassium 3.4 L (3.5-5.1) mmol/L Chloride 96 L (98-107) mmol/L Glucose 103 H (74-99) mg/dL POC Glucose (mg/dL) 120 H 123 H (70-110) mg/dL Magnesium 1.5 L (1.6-2.3) mg/dL Microbiology - Last 24 Hours (Table) 11/06/23 10:30 Gram Stain - Preliminary Pleural Fluid Body Fluid Culture - Preliminary Assessment and Plan Plan: Acute hypoxic respiratory compromise/failure, secondary to Ativan adminis tration, requiring intubation and mechanical ventilation, October 28, 2023. The patient was extubated on 10/30/2023. The patient continues to have signs of fluid overload with bilateral pleural effusion. The patient is postthoracentesis of the left lung and the procedure was self was successful wit h evacuation of 1.8 L of pleural fluid from the left lung. Oxygenation is improved and the patient is currently on room air oxygen. Bilateral pleural effusions, left more than right, status post thoracentesis of left lung and the patient remains on diuretics and the patient is currently on Zaroxolyn with excellent urine output. Suspect bilateral pneumonia with ongoing consolidation of the left lung base. The sputum sample was positive for oxacillin sensitive Staphylococcus aureus tracheobronchitis/bronchopneumonia. The patient is currently completing a course of Levaquin. Systolic heart failure , EF 20% MARK, recovered and the patient has evidence of nephrolithiasis and left hydronephrosis Left renal hydronephrosis with transition point within the distal left ureter, rule out the ureteral mass. Rule out nephrolithiasis and stone. The patient has hydronephrosis on the left. The patient will be seen by urology and CT urogram was also ordered. The CT urogram showed possibility of a mass obstructing left ureter, consider possibility of transitional cell carcinoma causing mechanical obstruction. Urology on the case. Left-sided pleural effusion. Status post thoracentesis and removal of 1.8 L of pleural fluid History of CVA. History of atrial fibrillation. Metabolic alkalosis, secondary to hypokalemia, and diuretic-induced volume contraction. Hypothyroidism. Gastroesophageal reflux disease. History of myocardial infarction. History of hypertension. History of ongoing tobacco use. History of chronic alcohol abuse. Pressure ulcer in the sacrum, DTI Plan Keep the patient on oxygen on room air Continue Zaroxolyn 5 mg p.o. daily IV fluids to K[facility] Urology consultation is appreciated patient will need an outpatient cystoscopy/ureteroscopy for diagnostic purposes Provide the patient is incentive spirometer continue metoprolol for now Anticoagulation with Eliquis Completed the course of Levaquin, this was started on 11/01/2023 Will continue to follow
[2023-11-08 16:13] LABS: Glucose,Whole Blood 97 mg/dL (70-110)
--- NOTE | 2023-11-08 16:51 | P.PN ---
Subjective Progress Note Date: 11/08/23 interval History: This is a 73-year-old male who presented to the emergency department via EMS with reports from the emergency department that patient was altered and debilitated in his living situation at home is very unkempt including multiple animals who appear malnourished and on care for as well. Unsure of last primary care provider and any compliance to follow-up in the outpatient setting. Per medical record patient does have a history of atrial fibrillation with documented medication refills by electrical assistant Dr. Moralez earlier this year, history of CVA/TIA, GERD, hypertension, previous myocardial infarction, former smoker and significant daily EtOH use. Patient was admitted initially to [facility] for altered mental status with acute NSTEMI and weakness with debility, possible alcohol withdrawal and atrial fibrillation uncontrolled with RVR. EKG showed atrial fibrillation with RVR and heart rate was 105, brain CT was performed showing no acute hemorrhage hydrocephalus or mass effect. Chest x-ray showed severe left pleural effusion with cardiomegaly. Patient was started on CIWA protocol and also 2 to 3 L via nasal cannula. Patient did undergo CT angio of the chest with no evidence of PE within the pulmonary outflow tract or immediate proximal branches, significant sequela of volume overload with mesenteric ascites and pleural effusions with cirrhotic morphology of the liver and cardiomegaly. Chest ultrasound was performed and left side was marked for possible thoracentesis. The left pleural effusion pocket size is 9.1 cm. Labs reviewed and patient had a normal white count of 5.2, hemoglobin was 13.6, platelets 176, INR 1.3, ABG showed a low pH of 7.28 O2 saturation was 95%. Sodium was 141 with a potassium of 3.9, BUN 16, creatinine mildly elevated at 1.43. Initial lactic acid was 2.1 and repeat remained the same and patient did receive a liter of fluids while in the ER and was continued on normal saline at a rate of 130 mL/h. Later patient did have a BNP drawn which significantly elevated at 22,700. TSH also found to be abnormal at 19 although free T4 was n ormal at 1.32. Albumin was 3.4. Urinalysis was done and negative and serum alcohol was noted to be less than 10. Troponins were also mildly elevated at 0.061 and trending up. Patient noted to be restless per nursing staff in the ER and was given an additional dose of Valium along with Ativan and then became obtunded and nonresponsive and ultimately required mechanical ventilation to protect airway. Patient is now admitted to the ICU and is being started on Lasix. Cardizem was initiated as well and patient has since converted and Cardizem has been placed on hold. Cardiac/pulmonary have been consulted. Patient is currently intubated with an FiO2 of 100% and PEEP of 5 maintaining oxygen saturations above 90%. 10/29/2023 Patient seen in follow-up in the ICU continues on mechanical patient continues in the ICU on mechanical ventilation, FiO2 is 50% with PEEP of 5. Patient remains on propofol with multiple consultations following. Patient not requiring pressor support and is maintained on IV Lasix and diuresing. Patient with wounds to bilateral lower extremities with wound care on consult. Overall prognosis is guarded at this time. 10/30/2023 Patient is seen in follow-up today continues to be in the ICU on mechanical ventilation with an FiO2 of 50% and PEEP is 5. Patient did undergo sedation weaning trial although not tolerating and will be continued on sedation. Patie nt becomes tacky and restless and thrashing during the sedation weaning. Sputum culture preliminary showing presumptive staph and patient is maintained on antibiotics. Continue local wound care and frequent offloading to the buttock area. Patient potassium 3.3 and will be replaced per protocol today. Patient continues with a large left pleural effusion and was maintained on IV Lasix which has been discontinued. Patient is making adequate urine per nursing staff and continues with indwelling Yeung catheter. ----Patient was successfully extubated yesterday. Patient able to respond to yes/no questions but not able to vocalize. He is currently in Afib with a HR in the 90-100s up to 120s and BP of 90s- 100s/60s. Not currently on Cardizem. Echo revealed LV EF 20%, severe biatrial dilatation, trace mitral regurgitation, and moderate tricuspid regurgitation. Current laboratory data includes a white count 7.7, hemoglobin 12.2, hematocrit 38, and a platelet count of 144,000. Sodium 139, potassium 4.1, chlorides 104, CO2 29, BUN 17, creatinine 1.35. Glucose 103. Calcium is 8.6. Procalcitonin level 0.42. Sputum from October 27, shows evidence of Staphylococcus aureus. Chest x-ray shows opacification, in both lungs, left greater than right. There appears to be a left-sided pleural effusion. 11/01/2023 Patient is seen and evaluated in room at bedside; was extubated successfully yesterday, October 29. Currently, he is on 6 L of oxygen. He is getting saline at 10 cc an hour. He still a bit lethargic. Other than that, he had an uneventful night according to the nurses. Lab review shows a white count 7.7, hemoglobin 12.2, hematocrit 38, and a platelet count of 144,000. Sodium 139, potassium 4.1, chlorides 104, CO2 29, BUN 17, creatinine 1.35. Glucose 103. Calcium is 8.6. Procalcitonin level 0.42. Sputum from October 27, shows evidence of Staphylococcus aureus. Chest x- ray shows opacification, in both lungs, left greater than right. There appears to be a left-sided pleural effusion. There may be a small effusion on the right. Patient remains in ICU-plan is to start patient on antibiotic once final culture reports are available 11/02/2023 Patient remains in ICU; and evaluated with sitter at bedside; patient was agitated yesterday evening and through the night; received Haldol which did not help; Seroquel has been added 25 mg 3 times daily -- currently on 4 L oxygen. He is getting dextrose with lactated Ringer's at 75 cc an hour. The patient was agitated through the night, and Haldol, was given o nce, but did not seem to help. Today we add Seroquel, 25 mg 3 times a day. -- Current laboratory data includes a white count 4, hemoglobin 11.5, hematocrit 36.2, and a platelet count of 133,000. Sodium 135, potassium 4, chlorides 107, CO2 27, BUN 16, creatinine 0.93. Troponin 0.026. Calcium 8.9. Glucose 109. Sputum revealed evidence of oxacillin sensitive Staph aureus. The patient was started on Levaquin. 11/02 Patient is sleeping this morning, he did not sleep well last night He is currently on 3 L oxygen via nasal cannula Getting D5 Ringer lactate at 75 mL/h A plan to undergo swallow evaluation today with the expectation he would pass it Yeung catheter in place with small amount of dark-colored urine, creatinine 0.9 Cozaar was held today because of borderline hypotension with systolic blood pressure was 98 there is a Sitter at bedside and patient remains lethargic 11/05/2023 Patient is seen in follow-up continues to be in the ICU currently maintained on 3 L via nasal cannula. Patient is tolerating diet although having some nausea today. Patient's mentation is improved although continues with some periods of confusion. Awaiting PT/OT therapy eval and social work consult regarding discharge planning. Patient is stable for transfer out of the ICU and awaiting a bed. Patient is afebrile and denies chest pain or worsening shortness of breath. continue to encourage IS and wean FI02 as tolerated. 11/06/2023 Patient seen in follow-up today as a downgrade from the ICU once a bed is available. Blood pressures have been marginal and on the lower side although patient was maintained on IV Lasix along with metolazone per pulmonary curing room supervisor. Patient is diuresing well and also underwent thoracentesis on the left with approximately 2 L removed. Patient continues on 2 L with a oxygen saturation of 98% and working to wean FiO2 as tolerated. Patient was continued on IV Lasix twice daily and does continue with volume overload noted of the lower extremities and would likely benefit from at least daily. Will discuss with pulmonary curing room supervisor as sodium is lower at 132, potassium is 3.4 and magnesium is 1.6. Recommend replace electrolytes per protocol. Blood sugars have been monitored and within normal limits and will continue current regimen. Continue to work with patient with physical therapy and also social work as patient lives alone and does have a brother that lives next-door. Strongly recommend rehab on discharge as patient has had prolonged hospitalization and significant weakness. Patient also having left knuckle pain with swelling and redness with history of gout. 11/07/2023 Patient is seen and evaluated in follow-up today with no acute overnight issues noted. Patient continues with significant weakness recommending PT/OT therapy daily. Patient reports he plans on returning home although feel this is an extremely unsafe discharge plan as there are family members reporting he has very unkempt living with social work following and APS is being involved. Patient will likely need ECF on discharge. Patient is maintained on metolazone although would likely benefit from Lasix and will follow-up with repeat labs. Replace electrolytes per protocol. Encouraged oral intake and recommend aspiration precautions. 11/08/2023--was seen and examined today. No issues overnight. Currently on room air. Denied any significant productive cough or chest pain or tightness or wheezing. Pulmonary following, history of COPD, cardiomyopathy, post 2 thoracentesis with subsequent improvement in his respiratory status and oxygenation. Seen by urology, need outpatient follow-up for left-sided diagnostic ureteroscopy to evaluate further. Currently on Eliquis, ordered diuretics with Zaroxolyn. BMP unremarkable, potassium 3.4, replace per protocol. Magnesium 1.5. Afebrile, heart rate 90, respiratory rate 16, blood pressure 98/63, 97% on room air. 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 Tracheobronchitis on Levaquin Large left pleural effusion with a BNP of 22,000, status post thoracentesis with approximately 2 L removed on 11/06/2023 Left index finger knuckle with redness and swelling, concerns for gout flareup with history of gout Elevated troponin, unsure of NSTEMI, possibly type II mismatch History of atrial fibrillation, currently atrial fibrillation with rapid ventricular, currently rate controlled History of CVA/TIA with no residual effects in 2006 History of myocardial infarction in 2019 History of GERD History of hypertension generalized weakness with gait dysfunction and inability to ambulate Stage II pressure ulcer of the left buttock, present on admission Unstageable pressure ulcer of the right buttock, present on admission Former smoker Heavy daily alcohol use and drinks about a pint of rum per day Poor social support and poor living situation Noncompliance to medication and follow-up GI prophylaxis dvt prophylaxis full code Plan: Continue with Levaquin for mssa in the sputum Continue with home dose of Eliquis 5 mg Patient is status post thoracentesis on the left side with approximately 2 L r emoved Patient having left index finger knuckle flareup with redness and stiffness with history of gout, likely gout flareup will start colchicine for the next few days, improving Continue on oxygen and wean as needed, currently on room air on exam Pulmonary/critical care team following closely Patient is medically stable and has been transferred out of the ICU Need PT/OT therapy and social work on consult for ecf and discharge planning. Patient reports has family next-door that can help although unsure of a safe discharge plan as living situation was inadequate on arrival from EMS. Will ne ed to discuss further regarding discharge planning as PT/OT therapy recommending rehab. Patient with significant weakness and prolonged hospitalization would benefit from ECF on discharge. Social work following and likely reported to APS as there is a niece reporting his house is unkept and unsafe for him to return. DVT prophylaxis: Anticoagulated with Eliquis Disposition: ECF PHYSICAL EXAMINATION: GENERAL: The patient is A&O x3, NAD HEENT: EOMI, Sclerae anicteric, Moist Mucous membranes Neck: Supple, Non tender, No JVD PULMONARY: Decreased breath souds B/L, No wheezing, No crackles. CARDIOVASCULAR: S1, S2 present. No murmurs, rubs, or gallops. ABDOMEN: Soft, nontender, nondistended, normoactive bowel sounds. No guarding or rebound tenderness. MUSCULOSKELETAL: ++ edema, No cyanosis. No clubbing. Normal ROM. Intact peripheral pulses. EXTREMITIES: No cyanosis, clubbing, or pedal edema. NEUROLOGICAL: CN 2-12 grossly intact. No FND Skin: No Rash REVIEW OF SYSTEMS: CONSTITUTIONAL: No fever or chills. CARDIOVASCULAR: No chest pain, palpitations or syncope. PULMONARY: No shortness of breath, no cough, sore throat. GASTROINTESTINAL: No nausea, vomiting, diarrhea, abdominal pain. : No Dysuria, urgency, frequency. Extremities: No edema. NEUROLOGICAL: No headaches, no weakness, or numbness Dictation was produced using [employer] dictation software. please excuse any gramm atical, word or spelling errors. Objective - Vital Signs Vital signs: Vital Signs Temp 97.7 F 11/08/23 16:00 Pulse 90 11/08/23 16:46 Resp 16 11/08/23 16:00 BP 98/63 11/08/23 16:00 Pulse Ox 97 11/08/23 16:00 FiO2 4 11/02/23 12:00 Intake & Output 11/07/23 11/08/23 11/08/23 18:59 06:59 18:59 Intake Total 898 540 680 Output Total 250 650 825 Balance 648 -110 -145 Weight 73.5 kg 73.5 kg Intake: Oral 898 540 680 Output: Urine 250 650 825 Other: Voiding Method External Catheter External Catheter Urinal # Voids 2 1 # Bowel Movements 1 ABP, PAP, CO, CI - Last Documented Arterial Blood Pressure 97/45 - Labs CBC & Chem 7: 11/06/23 06:20 11/08/23 06:45 Labs: Abnormal Lab Results - Last 24 Hours (Table) 11/07/23 11/08/23 Range/Units 20:09 06:45 Sodium 132 L (137-145) mmol/L Potassium 3.4 L (3.5-5.1) mmol/L Chloride 96 L (98-107) mmol/L Glucose 103 H (74-99) mg/dL POC Glucose (mg/dL) 123 H (70-110) mg/dL Magnesium 1.5 L (1.6-2.3) mg/dL Microbiology - Last 24 Hours (Table) 11/06/23 10:30 Gram Stain - Preliminary Pleural Fluid Body Fluid Culture - Preliminary
[2023-11-08 20:22] LABS: Glucose,Whole Blood 125 mg/dL (70-110)
[2023-11-09 06:14] LABS: Glucose,Whole Blood 94 mg/dL (70-110)
[2023-11-09 07:03] LABS: Basophils % (A) 1 %; Eosinophils # (A) 0.2 k/uL (0-0.7); Eosinophils % (A) 4 %; HCT 34.2 % (39.0-53.0); HGB 10.8 gm/dL (13.0-17.5); Hypochromasia Slight; Lymphocytes # (A) 0.9 k/uL (1.0-4.8); Lymphocytes % (A) 26 %; MCH 29.3 pg (25.0-35.0); MCHC 31.7 g/dL (31.0-37.0); MCV 92.6 fL (80.0-100.0); Mean Platelet Volume 10.3; Monocytes # (A) 0.2 k/uL (0-1.0); Monocytes % (A) 7 %; Neutrophils # (A) 2.1 k/uL (1.3-7.7); Neutrophils % (A) 61 %; Platelet Count 132 k/uL (150-450); RBC 3.69 m/uL (4.30-5.90); RDW 15.6 % (11.5-15.5); WBC 3.5 k/uL (3.8-10.6)
[2023-11-09 07:18] LABS: African American GFR (CKD) >90 (>60 ml/min/1.73 sqM); Blood Urea Nitrogen 15 mg/dL (9-20); Carbon Dioxide 33 mmol/L (22-30); Glucose 84 mg/dL (74-99); Magnesium 1.8 mg/dL (1.6-2.3); Non-African American GFR(CKD) 81 (>60 ml/min/1.73 sqM); Potassium 3.7 mmol/L (3.5-5.1); Sodium 135 mmol/L (137-145)
[2023-11-09 08:04] LABS: Anion Gap 1 mmol/L; Calcium 8.7 mg/dL (8.4-10.2); Chloride 101 mmol/L (98-107)
--- NOTE | 2023-11-09 11:52 | P.PN ---
Subjective Progress Note Date: 11/09/23 Pulmonary consult dated October 28, 2023. This is a 73-year-old male who presented to the emergency department, on October 27, shortly after 12 AM. The patient came in with multiple complaints including chest pain, and weakness. Apparently, the patient has been living in squalid conditions at home, and was unable to take care of his animals, including a dog and a cat, and his living condition apparently has been significant for him. He apparently has not gotten out of bed for 3 to 4 days, according to the ER shreya. We were asked to see the patient because of pleural effusion. We saw the patient down in the emergency department, room #8. The patient was very lethargic and somnolent, having received Ativan recently, because of concerns of alcohol withdrawal syndrome. The patient was on O2 at 3 L. He was found to have a left-sided pleural effusion, and atrial fibrillation, he was placed on Cardizem at 5 mg an hour. The patient apparently has a history of CVA, atrial fibrillation, gastroesophageal reflux disease, myocardial infarction, hypertension, and is a smoker, and drinks heavily. Current labs include a white count 5.2, hemoglobin 13.6, hematocrit 42.3, and a normal platelet count. PT was 13.3 with an INR of 1.3. Blood gases showed a pO2 of 87, pCO2 of 45, and a pH of 7.28. Sodium 141, potassium 3.9, chlorides 106, CO2 25, anion gap 10, BUN 16, creatinine 1.43. The patient's troponin was 0.061. N-terminal proBNP was 22,700. The patient's TSH was 19. Albumin was 3.4. Urine showed trace protein, trace blood, rare sediment. Serum alcohol was less than 10. Brain CT showed nothing acute. Initial chest x-ray showed a large left pleural effusion. CT angiogram was negative for pulmonary embolism, and showed primarily volume overload, with ascites, and pleural effusion. CT of the abdomen showed moderate left renal hydronephrosis, volume overload, and a cirrhotic liver among other things. Ultrasound of the left chest reveals a 9.1 cm pocket of fluid on the l eft side, with nothing on the right side. The patient continued to receive Ativan in the emergency department, and became so somnolent, he essentially had near respiratory arrest, and was electively intubated, for airway protection and respiratory support. His post intubation chest x-ray showed a properly placed endotracheal tube. Progress note dated October 29, 2023. The patient is seen today in room 252. He remains on the mechanical ventilator. He was intubated yesterday, for impending respiratory failure, lethargy, and somnolence. Current ventilator settings include volume assist-control, rate 16, tidal volume 450, FiO2 50%, and PEEP of 5. Blood gases show pO2 71, pCO2 of 34, and a pH of 7.47. Currently, the patient is on saline at 10 cc an hour and propofol at 20 mcg/kg/min. He had an uneventful night according to the nurses. White count 6.2, hemoglobin 12.4, hematocrit 38.6, platelet count 138,000. Sodium 140, potassium 2.6, chlorides 109, CO2 22, anion gap 9, BUN 14, c reatinine 1.22. Glucose 101. Calcium 8.3. Albumin 2.6. Chest x-ray suggest fluid overload/CHF, and a large left-sided pleural effusion. Progress note dated October 30, 2023. The patient is seen today again in room 252. He remains on the mechanical ventilator. The patient did have a daily interruption of sedation yesterday, with an attempted spontaneous breathing trial, but he did poorly. He remains on volume assist-control, rate 16, tidal volume 450, FiO2 50%, PEEP of 5. Blood gases show pO2 of 83, pCO2 of 38, pH of 7.50. Venous blood gases are consistent with a metabolic alkalosis. His metabolic alkalosis is likely secondary to hypokalemia, and diuretic induced volume contraction. The patient is on propofol at 30 mcg/kg/min, saline at 20 cc an hour, and vital AF 1.2 at 40 with a goal of 50 cc an hour. After his potassium is corrected, the patient will have another attempt at weaning. White count is 6.7, hemoglobin 12.1, hematocrit 36.7, platelet count 140,000. Sodium 134, potassium 3.3, chlorides 105, CO2 27, BUN 14, creatinine 1.22. Glucose is 147. Calcium 8.1. Sputum sampling is negative for pending. Chest x-ray continues to show bilateral pleural effusions, and mild volume overload. Progress note dated October 31, 2023. The patient is seen today in room 252. The patient was extubated successfully yesterday, October 29. Currently, he is on 6 L of oxygen. He is getting saline at 10 cc an hour. He still a bit lethargic. Other than that, he had an unev entful night according to the nurses. Current laboratory data includes a white count 7.7, hemoglobin 12.2, hematocrit 38, and a platelet count of 144,000. Sodium 139, potassium 4.1, chlorides 104, CO2 29, BUN 17, creatinine 1.35. Glucose 103. Calcium is 8.6. Procalcitonin level 0.42. Sputum from October 27, shows evidence of Staphylococcus aureus. Chest x-ray shows opacification, in both lungs, left greater than right. There appears to be a left-sided pleural effusion. There may be a small effusion on the right. Progress note dated November 01, 2023. 73-year-old male seen again in room 252. The patient continues on oxygen at 4 L. He is getting saline at 5 cc an hour, which will be converted to D5 with lactated Ringer's at 75 cc an hour. The sputum sample was positive for oxacill in sensitive Staphylococcus aureus. We placed him on Levaquin 500 mg a day. I am going to discontinue all of the Ativan as it may be causing his mental status not to be as sharp. Labs include a white count 5.1, hemoglobin 11.7, hematocrit 36.8, platelet count 121,000. Sodium 140, potassium 3.7, chloride 98, CO2 28, BUN 18, creatinine 1.13. Calcium is 8.7. Chest x-ray shows a left-sided pleur al effusion, and bilateral midlung infiltrates, as well as mild pulmonary edema. Progress note dated November 02, 2023. 73-year-old male seen today in room 252. The patient is currently on 4 L oxyg en. He is getting dextrose with lactated Ringer's at 75 cc an hour. The patient was agitated through the night, and Haldol, was given once, but did not seem to help. Today we add Seroquel, 25 mg 3 times a day. Will also add a nicotine patch. Current laboratory data includes a white count 4, hemoglobin 11.5, hematocrit 36.2, and a platelet count of 133,000. Sodium 135, potassium 4, chlorides 107, CO2 27, BUN 16, creatinine 0.93. Troponin 0.026. Calcium 8.9. Glucose 109. Sputum revealed evidence of oxacillin sensitive Staph aureus. The patient was started on Levaquin. Progress note dated November 03, 2023. 73-year-old male seen today in room 252. The patient continues on nasal O2 at 3 L. He is getting dextrose for lactated Ringer's at 75 cc an hour. He continues on oral Levaquin. The patient can be discharged from the intensive care unit. He has been very stable. Intermittent periods of brief agitation. He seems to be doing better on Seroquel. White count 2.8, hemoglobin 11.2, hematocrit 35.2, platelet count 106,000. Sodium 138, potassium 3.5, chlorides 108, CO2 28, BUN 12, creatinine 0.90. Glucose is 93. Calcium is 8.8. On 11/04/2023, the patient is being seen for a follow-up. This morning, the patient is calm and comfortable, he denies having any new complaints. Is resting comfortably in bed. As mentioned earlier, the patient is status post acute hypoxic respiratory failure requiring intubation mechanical ventilation patient is currently off the Suboxone by nasal cannula. He does have MSSA in the sputum and the patient is covered with Levaquin accordingly. He is known to have systolic heart failure with impaired ejection fraction of 20%. He did have an acute kidney injury at time of admission and the renal function gradually improved and is currently normalized. Nevertheless, the CAT scan of the abdomen initially showed evidence of hydronephrosis and this needs to be further followed up. Based on that, ultrasound of the kidneys was ordered to assess for ongoing hydronephrosis. I reviewed his previous chest x-ray there was evidence of pleural effusion. This could be representing CHF. The follow-up chest x-ray is obviously needed to reevaluate for ongoing presence of pleural effusion specially on the left. For now, the patient is no diuretics. He is on IV fluids which is running at 75 cc an hour. He does have a stage I sacral decub ulcer which is being managed conservatively and the patient has an Optifoam in place. White circles of 3.8 with hemoglobin 12.1 and a platelet count of 133. BUN is 12 with a creatinine of 1.0. He remains in atrial fibrillation. Other comorbidities include hypertension, coronary artery disease with previous PA, hypothyroidism, and history of alcoholism. His mental status is stable for now. No evidence of any encephalopathy. He is awake and alert and communicating and answering questions appropriately. On today's evaluation of 11/05/2023, the patient is being seen for a follow-up. Overall condition is stable and the patient has no interval worsening shortness of breath. The patient is currently on diuretics and the patient is receiving IV Lasix. Fluid balance has been essentially not well-documented. I am going to increase the diuretics and I am going to increase the dose of Lasix and start the patient also on Zaroxolyn. The goal is to achieve a negative fluid balance over the next 24 hours. Chest x-ray from yesterday showed evidence of stable diffuse pleural-parenchymal changes along with findings consistent with CHF. The patient is known to have underlying cardiomyopathy with impaired LV function. Ultrasound the kidneys also showed bilateral nephrolithiasis with moderate left hydronephrosis. There was small amount of ascites and pleural effusion and the patient will be seen by urology. Otherwise, BUN is at 30 with a creatinine of 1.1. Sodium is at 136 with a potassium level of 3.8. Chloride is 104 with a bicarb level of 28. On a separate note, the patient remains on Levaquin for MSSA in the sputum. Anticoagulation was placed on hold and consi deration for thoracentesis based on the chest x-ray from tomorrow. No encephalopathy. Mental status is appropriate for now. Wound care is also being performed. 11/06/2023, seen the pulmonary follow-up in the intensive care unit. The patient is doing well with no specific complaints. Remains on oxygen at 4 L/min nasal cannula. Still being diuresed with IV Lasix and oral Zaroxolyn. Fluid balance is -4.9 L over the past 24 hours. A bedside thoracentesis was done and a total of 1.8 L of pleural fluid was aspirated from the left hemithorax without any complications. The blood work from today shows a white cell count of 3.1, hemoglobin of 11.5 and a platelet count of 103. Sodium is at 132, potassium is at 3.4, BUN 15 with a creatinine of 0.95. The procedure was done without any complication. Postoperative chest x-ray showed resolution of the left-sided pleural effusion and there is no evidence of any pneumothorax. There is a small right-sided pleural effusion still present. On a separate note, the patient was seen by urology. The patient has a left ureteral mass with hydronephrosis. He is having some intermittent gross hematuria. Currently this problem is an active complaint. The patient is to be seen by urology and a CT urogram was also ordered and eventually he may need a cystoscopy. On 11/07/2023, the patient is being seen for a follow-up. Patient is left intensi ve. The patient is currently in the medical floor. The patient is calm and comfortable. No significant respiratory distress. Following the thoracentesis, oxygenation further improved and the patient is currently on room air oxygen. Otherwise, he has no other specific complaints for now. He is producing enough amount of urine output. Labs from today shows a white cell count of 3, hemoglobin 11.5 and a platelet count of 103. BUN 13 with a creatinine of 0.9 and sodium is at 142. The overall fluid balance is negative over the past 24 hours in the order of 4.9 L. Meanwhile, patient remains on Zaroxolyn 5 mg p.o. daily. The patient was taken off the Lasix. Rest of the medications remain unchanged. Continuing a course of Levaquin regarding MSSA in the sputum. The results of the Awaiting further consultation from urology regarding CT urogram that showed a ureteral wall mass/thickening with left-sided hydronephrosis. And poor left renal excretion. Possibility of transitional cell carcinoma within the ureter cannot be completely ruled out. No evidence of any renal calculus. On 11/08/2023, the patient is being seen for a follow-up. The patient has no specific complaints. The patient remains on room air oxygen. No significant cough sputum production or chest tightness or wheezing. No respiratory distress at this point in time. He is known to have COPD, cardiomyopathy and is postthoracentesis with subsequent improvement in and has respiratory status and oxygenation. Meanwhile, the patient was found to have a left distal ureteral mass and the patient denies having any flank pain or gross hematuria. He was seen by urology and the patient will need an outpatient left-sided diagnostic ureteroscopy to evaluate further. Labs from today show a BUN of 15 with a creat inine of 1 and sodium is at 132 and a potassium level is five 3.4. Remains on anticoagulation with Eliquis. Remains on Zaroxolyn 5 mg p.o. daily. Rest of the medications are essentially unchanged. 11/09/2023, the patient is being seen for a follow-up. Resting comfortably in bed. No specific complaints. Remains on room air oxygen. The white cell count is at 3.5 with a hemoglobin of 10.8 and a platelet count of 132. BUN is 15 with a creatinine of 0.9. Remains on DuoNeb nebulized treatments [id number]. Remains on Zaroxolyn. Producing adequate amount of urine output. Urology is on the case regarding the ureteral mass that needs to be worked up on outpatient basis. Objective - Vital Signs Vital signs: Vital Signs Temp 98.3 F 11/08/23 19:54 Pulse 88 11/09/23 08:59 Resp 16 11/09/23 03:37 BP 90/56 11/09/23 03:37 Pulse Ox 95 11/09/23 03:37 FiO2 4 11/02/23 12:00 Intake & Output 11/08/23 11/09/23 11/09/23 18:59 06:59 18:59 Intake Total 920 Output Total 825 1300 Balance 95 -1300 Weight 73.5 kg 73.4 kg Intake: Oral 920 Output: Urine 825 1300 Other: Voiding Method Urinal Urinal # Voids 1 2 # Bowel Movements 1 1 ABP, PAP, CO, CI - Last Documented Arterial Blood Pressure 97/45 - Exam No acute distress, extubated, currently on room air oxygen HEENT examination is grossly unremarkable. Neck supple. Full range of motion. No adenopathy thyromegaly or neck vein distention. Cardiovascular examination reveals regular rhythm rate. S1-S2 normal. No S3 or S4. No discernible murmur noted. Heart sounds are distant. The patient's rhythm is irregular consistent with atrial fibrillation. Lungs reveal scattered rhonchi and crackles. No wheezes. Breath sounds equal. Diminished breath sound lung bases specially on the left. Aeration of the left lung base improved following the thoracentesis. Abdomen soft bowel sounds are heard. No masses or tenderness. Extremities are intact. No cyanosis clubbing or edema. Skin is without rash or lesion. Neurologic examination is brief, but nonfocal. - Labs CBC & Chem 7: 11/09/23 06:39 11/09/23 06:39 Labs: Abnormal Lab Results - Last 24 Hours (Table) 11/08/23 11/09/23 11/09/23 Range/Units 20:22 06:39 06:39 WBC 3.5 L (3.8-10.6) k/uL RBC 3.69 L (4.30-5.90) m/uL Hgb 10.8 L (13.0-17.5) gm/dL Hct 34.2 L (39.0-53.0) % RDW 15.6 H (11.5-15.5) % Plt Count 132 L (150-450) k/uL Lymphocytes # 0.9 L (1.0-4.8) k/uL Sodium 135 L (137-145) mmol/L Carbon Dioxide 33 H (22-30) mmol/L POC Glucose (mg/dL) 125 H (70-110) mg/dL Microbiology - Last 24 Hours (Table) 11/06/23 10:30 Gram Stain - Preliminary Pleural Fluid Body Fluid Culture - Preliminary Assessment and Plan Plan: Acute hypoxic respiratory compromise/failure, secondary to Ativan administration, requiring intubation and mechanical ventilation, October 28, 2023. The patient was extubated on 10/30/2023. The patient continues to have signs of fluid overload with bilateral pleural effusion. The patient is postthoracentesis of the left lung and the procedure was self was successful with evacuation of 1.8 L of pleural fluid from the left lung. Oxygenation is improved and the patient is currently on room air oxygen. Bilateral pleural effusions, left more than right, status post thoracentesis of left lung and the patient remains on diuretics and the patient is currently on Zaroxolyn with excellent urine output. Suspect bilateral pneumonia with ongoing consolidation of the left lung base. The sputum sample was positive for oxacillin sensitive Staphylococcus aureus tracheobronchitis/bronchopneumonia. The patient is currently completing a course of Levaquin. Systolic heart failure , EF 20% MARK, recovered and the patient has evidence of nephrolithiasis and left hydronephrosis Left renal hydronephrosis with transition point within the distal left ureter, rule out the ureteral mass. Rule out nephrolithiasis and stone. The patient has hydronephrosis on the left. The patient will be seen by urology and CT urogram was also ordered. The CT urogram showed possibility of a mass obstructing left ureter, consider possibility of transitional cell carcinoma causing mechanical obstruction. Urology on the case. Left-sided pleural effusion. Status post thoracentesis and removal of 1.8 L of pleural fluid History of CVA. History of atrial fibrillation. Metabolic alkalosis, secondary to hypokalemia, and diuretic-induced volume contraction. Hypothyroidism. Gastroesophageal reflux disease. History of myocardial infarction. History of hypertension. History of ongoing tobacco use. History of chronic alcohol abuse. Pressure ulcer in the sacrum, DTI Plan Keep the patient on oxygen on room air, no significant change in his overall condition the patient is resting comfortably in bed. May require some physical therapy and rehabilitation Increase mobility and activity Continue Zaroxolyn 5 mg p.o. daily IV fluids to KVO Urology consultation is appreciated patient will need an outpatient cystoscopy/ureteroscopy for diagnostic purposes Provide the patient is incentive spirometer continue metoprolol for now Anticoagulation with Eliquis Completed the course of Levaquin, this was started on 11/01/2023 Will continue to follow
[2023-11-09 11:57] LABS: Glucose,Whole Blood 126 mg/dL (70-110)
--- NOTE | 2023-11-09 15:30 | P.PN ---
Subjective Progress Note Date: 11/09/23 interval History: This is a 73-year-old male who presented to the emergency department via EMS with reports from the emergency department that patient was altered and debilitated in his living situation at home is very unkempt including multiple animals who appear malnourished and on care for as well. Unsure of last primary care provider and any compliance to follow-up in the outpatient setting. Per medical record patient does have a history of atrial fibrillation with documented medication refills by tenter frame back tender Dr. Moralez earlier this year, history of CVA/TIA, GERD, hypertension, previous myocardial infarction, former smoker and significant daily EtOH use. Patient was admitted initially to [facility] for altered mental status with acute NSTEMI and weakness with debility, possible alcohol withdrawal and atrial fibrillation uncontrolled with RVR. EKG showed atrial fibrillation with RVR and heart rate was 105, brain CT was performed showing no acute hemorrhage hydrocephalus or mass effect. Chest x-ray showed severe left pleural effusion with cardiomegaly. Patient was started on CIWA protocol and also 2 to 3 L via nasal cannula. Patient did undergo CT angio of the chest with no evidence of PE within the pulmonary outflow tract or immediate proximal branches, significant sequela of volume overload with mesenteric ascites and pleural effusions with cirrhotic morphology of the liver and cardiomegaly. Chest ultrasound was performed and left side was marked for possible thoracentesis. The left pleural effusion pocket size is 9.1 cm. Labs reviewed and patient had a normal white count of 5.2, hemoglobin was 13.6, platelets 176, INR 1.3, ABG showed a low pH of 7.28 O2 saturation was 95%. Sodium was 141 with a potassium of 3.9, BUN 16, creatinine mildly elevated at 1.43. Initial lactic acid was 2.1 and repeat remained the same and patient did receive a liter of fluids while in the ER and was continued on normal saline at a rate of 130 mL/h. Later patient did have a BNP drawn which significantly elevated at 22,700. TSH also found to be abnormal at 19 although free T4 was n ormal at 1.32. Albumin was 3.4. Urinalysis was done and negative and serum alcohol was noted to be less than 10. Troponins were also mildly elevated at 0.061 and trending up. Patient noted to be restless per nursing staff in the ER and was given an additional dose of Valium along with Ativan and then became obtunded and nonresponsive and ultimately required mechanical ventilation to protect airway. Patient is now admitted to the ICU and is being started on Lasix. Cardizem was initiated as well and patient has since converted and Cardizem has been placed on hold. Cardiac/pulmonary have been consulted. Patient is currently intubated with an FiO2 of 100% and PEEP of 5 maintaining oxygen saturations above 90%. 10/29/2023 Patient seen in follow-up in the ICU continues on mechanical patient continues in the ICU on mechanical ventilation, FiO2 is 50% with PEEP of 5. Patient remains on propofol with multiple consultations following. Patient not requiring pressor support and is maintained on IV Lasix and diuresing. Patient with wounds to bilateral lower extremities with wound care on consult. Overall prognosis is guarded at this time. 10/30/2023 Patient is seen in follow-up today continues to be in the ICU on mechanical ventilation with an FiO2 of 50% and PEEP is 5. Patient did undergo sedation weaning trial although not tolerating and will be continued on sedation. Patie nt becomes tacky and restless and thrashing during the sedation weaning. Sputum culture preliminary showing presumptive staph and patient is maintained on antibiotics. Continue local wound care and frequent offloading to the buttock area. Patient potassium 3.3 and will be replaced per protocol today. Patient continues with a large left pleural effusion and was maintained on IV Lasix which has been discontinued. Patient is making adequate urine per nursing staff and continues with indwelling Yeung catheter. ----Patient was successfully extubated yesterday. Patient able to respond to yes/no questions but not able to vocalize. He is currently in Afib with a HR in the 90-100s up to 120s and BP of 90s- 100s/60s. Not currently on Cardizem. Echo revealed LV EF 20%, severe biatrial dilatation, trace mitral regurgitation, and moderate tricuspid regurgitation. Current laboratory data includes a white count 7.7, hemoglobin 12.2, hematocrit 38, and a platelet count of 144,000. Sodium 139, potassium 4.1, chlorides 104, CO2 29, BUN 17, creatinine 1.35. Glucose 103. Calcium is 8.6. Procalcitonin level 0.42. Sputum from October 27, shows evidence of Staphylococcus aureus. Chest x-ray shows opacification, in both lungs, left greater than right. There appears to be a left-sided pleural effusion. 11/01/2023 Patient is seen and evaluated in room at bedside; was extubated successfully yesterday, October 29. Currently, he is on 6 L of oxygen. He is getting saline at 10 cc an hour. He still a bit lethargic. Other than that, he had an uneventful night according to the nurses. Lab review shows a white count 7.7, hemoglobin 12.2, hematocrit 38, and a platelet count of 144,000. Sodium 139, potassium 4.1, chlorides 104, CO2 29, BUN 17, creatinine 1.35. Glucose 103. Calcium is 8.6. Procalcitonin level 0.42. Sputum from October 27, shows evidence of Staphylococcus aureus. Chest x- ray shows opacification, in both lungs, left greater than right. There appears to be a left-sided pleural effusion. There may be a small effusion on the right. Patient remains in ICU-plan is to start patient on antibiotic once final culture reports are available 11/02/2023 Patient remains in ICU; and evaluated with sitter at bedside; patient was agitated yesterday evening and through the night; received Haldol which did not help; Seroquel has been added 25 mg 3 times daily -- currently on 4 L oxygen. He is getting dextrose with lactated Ringer's at 75 cc an hour. The patient was agitated through the night, and Haldol, was given o nce, but did not seem to help. Today we add Seroquel, 25 mg 3 times a day. -- Current laboratory data includes a white count 4, hemoglobin 11.5, hematocrit 36.2, and a platelet count of 133,000. Sodium 135, potassium 4, chlorides 107, CO2 27, BUN 16, creatinine 0.93. Troponin 0.026. Calcium 8.9. Glucose 109. Sputum revealed evidence of oxacillin sensitive Staph aureus. The patient was started on Levaquin. 11/02 Patient is sleeping this morning, he did not sleep well last night He is currently on 3 L oxygen via nasal cannula Getting D5 Ringer lactate at 75 mL/h A plan to undergo swallow evaluation today with the expectation he would pass it Yeung catheter in place with small amount of dark-colored urine, creatinine 0.9 Cozaar was held today because of borderline hypotension with systolic blood pressure was 98 there is a Sitter at bedside and patient remains lethargic 11/05/2023 Patient is seen in follow-up continues to be in the ICU currently maintained on 3 L via nasal cannula. Patient is tolerating diet although having some nausea today. Patient's mentation is improved although continues with some periods of confusion. Awaiting PT/OT therapy eval and social work consult regarding discharge planning. Patient is stable for transfer out of the ICU and awaiting a bed. Patient is afebrile and denies chest pain or worsening shortness of breath. continue to encourage IS and wean FI02 as tolerated. 11/06/2023 Patient seen in follow-up today as a downgrade from the ICU once a bed is available. Blood pressures have been marginal and on the lower side although patient was maintained on IV Lasix along with metolazone per pulmonary search engine optimization manager. Patient is diuresing well and also underwent thoracentesis on the left with approximately 2 L removed. Patient continues on 2 L with a oxygen saturation of 98% and working to wean FiO2 as tolerated. Patient was continued on IV Lasix twice daily and does continue with volume overload noted of the lower extremities and would likely benefit from at least daily. Will discuss with pulmonary search engine optimization manager as sodium is lower at 132, potassium is 3.4 and magnesium is 1.6. Recommend replace electrolytes per protocol. Blood sugars have been monitored and within normal limits and will continue current regimen. Continue to work with patient with physical therapy and also social work as patient lives alone and does have a brother that lives next-door. Strongly recommend rehab on discharge as patient has had prolonged hospitalization and significant weakness. Patient also having left knuckle pain with swelling and redness with history of gout. 11/07/2023 Patient is seen and evaluated in follow-up today with no acute overnight issues noted. Patient continues with significant weakness recommending PT/OT therapy daily. Patient reports he plans on returning home although feel this is an extremely unsafe discharge plan as there are family members reporting he has very unkempt living with social work following and APS is being involved. Patient will likely need ECF on discharge. Patient is maintained on metolazone although would likely benefit from Lasix and will follow-up with repeat labs. Replace electrolytes per protocol. Encouraged oral intake and recommend aspiration precautions. 11/08/2023--was seen and examined today. No issues overnight. Currently on room air. Denied any significant productive cough or chest pain or tightness or wheezing. Pulmonary following, history of COPD, cardiomyopathy, post 2 thoracentesis with subsequent improvement in his respiratory status and oxygenation. Seen by urology, need outpatient follow-up for left-sided diagnostic ureteroscopy to evaluate further. Currently on Eliquis, ordered diuretics with Zaroxolyn. BMP unremarkable, potassium 3.4, replace per protocol. Magnesium 1.5. Afebrile, heart rate 90, respiratory rate 16, blood pressure 98/63, 97% on room air. 11/09/2023--patient was seen and examined today. Resting comfortably in bed. Remains on room air. WBC 3.5, hemoglobin 10.8, platelet 132. BUN 15, creatinine 0.9. Currently on DuoNeb. Also on Zaroxolyn for diuresis. Pulmonary following. Urology consulted for ureteral mass to be worked up on outpatient basis. 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 Tracheobronchitis on Levaquin Large left pleural effusion with a BNP of 22,000, status post thoracentesis with approximately 2 L removed on 11/06/2023 Left index finger knuckle with redness and swelling, concerns for gout flareup with history of gout Elevated troponin, unsure of NSTEMI, possibly type II mismatch History of atrial fibrillation, currently atrial fibrillation with rapid ventricular, currently rate controlled History of CVA/TIA with no residual effects in 2006 History of myocardial infarction in 2019 History of GERD History of hypertension generalized weakness with gait dysfunction and inability to ambulate Stage II pressure ulcer of the left buttock, present on admission Unstageable pressure ulcer of the right buttock, present on admission Former smoker Heavy daily alcohol use and drinks about a pint of rum per day Poor social support and poor living situation Noncompliance to medication and follow-up GI prophylaxis dvt prophylaxis full code Plan: Completed Levaquin for mssa in the sputum Continue with home dose of Eliquis 5 mg Patient is status post thoracentesis on the left side with approximately 2 L removed Patient having left index finger knuckle flareup with redness and stiffness with history of gout, likely gout flareup will start colchicine for the next few days, improving Continue on oxygen and wean as needed, currently on room air on exam Pulmonary/critical care team following closely Patient is medically stable and has been transferred out of the ICU Need PT/OT therapy and social work on consult for ecf and discharge planning. Patient reports has family next-door that can help although unsure of a safe discharge plan as living situation was inadequate on arrival from EMS. Will need to discuss further regarding discharge planning as PT/OT therapy recommending rehab. Patient with significant weakness and prolonged hospitalization would benefit from ECF on discharge. Social work following and likely reported to APS as there is a niece reporting his house is unkept and unsafe for him to return. DVT prophylaxis: Anticoagulated with Eliquis Disposition: ECF PHYSICAL EXAMINATION: GENERAL: The patient is A&O x3, NAD HEENT: EOMI, Sclerae anicteric, Moist Mucous membranes Neck: Supple, Non tender, No JVD PULMONARY: Decreased breath souds B/L, No wheezing, No crackles. CARDIOVASCULAR: S1, S2 present. No murmurs, rubs, or gallops. ABDOMEN: Soft, nontender, nondistended, normoactive bowel sounds. No guarding or rebound tenderness. MUSCULOSKELETAL: ++ edema, No cyanosis. No clubbing. Normal ROM. Intact peripheral pulses. EXTREMITIES: No cyanosis, clubbing, or pedal edema. NEUROLOGICAL: CN 2-12 grossly intact. No FND Skin: No Rash REVIEW OF SYSTEMS: CONSTITUTIONAL: No fever or chills. CARDIOVASCULAR: No chest pain, palpitations or syncope. PULMONARY: No shortness of breath, no cough, sore throat. GASTROINTESTINAL: No nausea, vomiting, diarrhea, abdominal pain. : No Dysuria, urgency, frequency. Extremities: No edema. NEUROLOGICAL: No headaches, no weakness, or numbness Dictation was produced using [employer]ed[employer] dictation software. please excuse any grammatical, word or spelling errors. Objective - Vital Signs Vital signs: Vital Signs Temp 98.2 F 11/09/23 08:00 Pulse 88 11/09/23 12:36 Resp 16 11/09/23 11:49 BP 92/55 11/09/23 11:49 Pulse Ox 95 11/09/23 11:49 FiO2 4 11/02/23 12:00 Intake & Output 11/08/23 11/09/23 11/09/23 18:59 06:59 18:59 Intake Total 920 540 Output Total 825 1300 350 Balance 95 -1300 190 Weight 73.5 kg 73.4 kg Intake: Oral 920 540 Output: Urine 825 1300 350 Other: Voiding Method Urinal Urinal Urinal # Voids 1 2 1 # Bowel Movements 1 1 1 ABP, PAP, CO, CI - Last Documented Arterial Blood Pressure 97/45 - Labs CBC & Chem 7: 11/09/23 06:39 11/09/23 06:39 Labs: Abnormal Lab Results - Last 24 Hours (Table) 11/08/23 11/09/23 11/09/23 Range/Units 20:22 06:39 06:39 WBC 3.5 L (3.8-10.6) k/uL RBC 3.69 L (4.30-5.90) m/uL Hgb 10.8 L (13.0-17.5) gm/dL Hct 34.2 L (39.0-53.0) % RDW 15.6 H (11.5-15.5) % Plt Count 132 L (150-450) k/uL Lymphocytes # 0.9 L (1.0-4.8) k/uL Sodium 135 L (137-145) mmol/L Carbon Dioxide 33 H (22-30) mmol/L POC Glucose (mg/dL) 125 H (70-110) mg/dL 11/09/23 Range/Units 11:51 WBC (3.8-10.6) k/uL RBC (4.30-5.90) m/uL Hgb (13.0-17.5) gm/dL Hct (39.0-53.0) % RDW (11.5-15.5) % Plt Count (150-450) k/uL Lymphocytes # (1.0-4.8) k/uL Sodium (137-145) mmol/L Carbon Dioxide (22-30) mmol/L POC Glucose (mg/dL) 126 H (70-110) mg/dL Microbiology - Last 24 Hours (Table) 11/06/23 10:30 Gram Stain - Preliminary Pleural Fluid Body Fluid Culture - Preliminary
[2023-11-09 16:57] LABS: Glucose,Whole Blood 101 mg/dL (70-110)
[2023-11-09 20:33] LABS: Glucose,Whole Blood 89 mg/dL (70-110)
[2023-11-10 06:30] LABS: Glucose,Whole Blood 116 mg/dL (70-110)
[2023-11-10 11:40] LABS: Glucose,Whole Blood 139 mg/dL (70-110)
[2023-11-10] MEDS: FUROSEMIDE 40 MG TAB PO SCH (12:39)
--- NOTE | 2023-11-10 15:27 | P.PN ---
Subjective Progress Note Date: 11/10/23 Principal diagnosis: Acute systolic congestive heart failure with bilateral pleural effusions and possible MSSA pneumonia. 11/06/2023, seen the pulmonary follow-up in the intensive care unit. The patient is doing well with no specific complaints. Remains on oxygen at 4 L/min nasal cannula. Still being diuresed with IV Lasix and oral Zaroxolyn. Fluid balance is -4.9 L over the past 24 hours. A bedside thoracentesis was done and a total of 1.8 L of pleural fluid was aspirated from the left hemithorax without any complications. The blood work from today shows a white cell count of 3.1, hemoglobin of 11.5 and a platelet count of 103. Sodium is at 132, potassium is at 3.4, BUN 15 with a creatinine of 0.95. The procedure was done without any complication. Postoperative chest x-ray showed resolution of the left-sided pleural effusion and there is no evidence of any pneumothorax. There is a small right-sided pleural effusion still present. On a separate note, the patient was seen by urology. The patient has a left ureteral mass with hydronephrosis. He is having some intermittent gross hematuria. Currently this problem is an active complaint. The patient is to be seen by urology and a CT urogram was also ordered and eventually he may need a cystoscopy. On 11/07/2023, the patient is being seen for a follow-up. Patient is left intensive. The patient is currently in the medical floor. The patient is calm and comfortable. No significant respiratory distress. Following the thoracentesis, oxygenation further improved and the patient is currently on room air oxygen. Otherwise, he has no other specific complaints for now. He is producing enough amount of urine output. Labs from today shows a white cell count of 3, hemoglobin 11.5 and a platelet count of 103. BUN 13 with a creatinine of 0.9 and sodium is at 142. The overall fluid balance is negative over the past 24 hours in the order of 4.9 L. Meanwhile, patient remains on Zaroxolyn 5 mg p.o. daily. The patient was taken off the Lasix. Rest of the medications remain unchanged. Continuing a course of Levaquin regarding MSSA in the sputum. The results of the Awaiting further consultation from urology regarding CT urogram that showed a ureteral wall mass/thickening with left-sided hydronephrosis. And poor left renal excretion. Possibility of transitional cell carcinoma within the ureter cannot be completely ruled out. No evidence of any renal calculus. On 11/08/2023, the patient is being seen for a follow-up. The patient has no specific complaints. The patient remains on room air oxygen. No significant cough sputum production or chest tightness or wheezing. No respiratory distress at this point in time. He is known to have COPD, cardiomyopathy and is postthoracentesis with subsequent improvement in and has respiratory status and oxygenation. Meanwhile, the patient was found to have a left distal ureteral mass and the patient denies having any flank pain or gross hematuria. He was seen by urology and the patient will need an outpatient left-sided diagnostic ureteroscopy to evaluate further. Labs from today show a BUN of 15 with a creatinine of 1 and sodium is at 132 and a potassium level is five 3.4. Remains on anticoagulation with Eliquis. Remains on Zaroxolyn 5 mg p.o. daily. Rest of the medications are essentially unchanged. 11/09/2023, the patient is being seen for a follow-up. Resting comfortably in bed. No specific complaints. Remains on room air oxygen. The white cell count is at 3.5 with a hemoglobin of 10.8 and a platelet count of 132. BUN is 15 with a creatinine of 0.9. Remains on DuoNeb nebulized treatments [id number]. Remains on Zaroxolyn. Producing adequate amount of urine output. Urology is on the case regarding the ureteral mass that needs to be worked up on outpatient basis. Patient was seen on 11/10/2023, on room air, O2 sats 93%, patient does not seem to be in any distress. Patient has tolerated the extubation well, he is not in any distress, being treated for congestive heart failure patient required t horacentesis and had significant amount of pleural effusion drained by Dr. frank patient denies any cough, denies any wheezing, he was seen by urology and may require outpatient left-sided diagnostic ureteroscopy to evaluate further. Patient remains on diuretics, and improving steadily. Last chest x- ray from 11/06/2023, showed significant improvement in his fluid status and no further pleural effusion noted Objective - Vital Signs Vital signs: Vital Signs Temp 98.2 F 11/10/23 08:45 Pulse 88 11/10/23 13:27 Resp 16 11/10/23 11:35 BP 86/44 11/10/23 11:35 Pulse Ox 93 L 11/10/23 11:35 FiO2 4 11/02/23 12:00 Intake & Output 11/09/23 11/10/23 11/10/23 18:59 06:59 18:59 Intake Total 540 540 598 Output Total 350 565 300 Balance 190 -25 298 Weight 68.7 kg Intake: Oral 540 540 598 Output: Urine 350 565 300 Other: Voiding Method Urinal Urinal Urinal # Voids 1 # Bowel Movements 1 ABP, PAP, CO, CI - Last Documented Arterial Blood Pressure 97/45 - Exam General: Revealed a 73-year-old white male in no distress, on room air. Head: Atraumatic, normocephalic HEENT: PERRLA, EOMI, nonicteric, no neck masses no JVD Cardiovascular: Irregular rhythm, no S3 gallop, 2/6 systolic murmur throughout the precordium Lungs reveal diminished breath sounds and minimal crackles at the bases Abdomen soft bowel sounds are heard. No masses or tenderness. Extremities are intact. No cyanosis clubbing or edema. Skin is without rash or lesion. Neurologic: Alert oriented x 3 no gross focal deficit Psychiatric: Normal mood affect and no mental status examination - Labs CBC & Chem 7: 11/09/23 06:39 11/09/23 06:39 Labs: Abnormal Lab Results - Last 24 Hours (Table) 11/10/23 11/10/23 Range/Units 06:29 11:39 POC Glucose (mg/dL) 116 H 139 H (70-110) mg/dL Microbiology - Last 24 Hours (Table) 11/06/23 10:30 Gram Stain - Final Pleural Fluid Body Fluid Culture - Final Assessment and Plan Assessment: Impression: Acute hypoxic respiratory compromise/failure, secondary to Ativan adm inistration, requiring intubation and mechanical ventilation, October 28, 2023. The patient was extubated on 10/30/2023. Bilateral pleural effusions, left more than right, status post thoracentesis of left lung improving now with diuretics Possible MSSA pneumonia/tracheobronchitis based on sputum cultures Systolic heart failure , EF 20% MARK, recovered and the patient has evidence of nephrolithiasis and left hydronephrosis Left renal hydronephrosis with transition point within the distal left ureter, being followed by urology. History of CVA. History of atrial fibrillation. Hypothyroidism. Gastroesophageal reflux disease. History of myocardial infarction. History of hypertension. History of ongoing tobacco use. History of chronic alcohol abuse. Pressure ulcer in the sacrum, DTI Recommendation: Continue diuretics/Zaroxolyn Continue metoprolol Continue bronchodilators Increase mobility and activity Patient finished a full course of antibiotics/Levaquin Continue IV fluid at KVO Will continue to follow Time with Patient: Less than 30
[2023-11-10 16:17] LABS: Glucose,Whole Blood 84 mg/dL (70-110)
[2023-11-10 20:15] LABS: Glucose,Whole Blood 106 mg/dL (70-110)
--- NOTE | 2023-11-10 23:25 | P.PN ---
Subjective Progress Note Date: 11/10/23 This is a 73-year-old male who presented to the emergency department via EMS with reports from the emergency department that patient was altered and debilitated in his living situation at home is very unkempt including multiple animals who appear malnourished and on care for as well. Unsure of last primary care provider and any compliance to follow-up in the outpatient setting. Per medical record patient does have a history of atrial fibrillation with documented medication refills by cottage master Dr. Moralez earlier this year, history of CVA/TIA, GERD, hypertension, previous myocardial infarction, former smoker and significant daily EtOH use. Patient was admitted initially to [facility] for altered mental status with acute NSTEMI and weakness with debility, possible alcohol withdrawal and atrial fibrillation uncontrolled with RVR. EKG showed atrial fibrillation with RVR and heart rate was 105, brain CT was performed showing no acute hemorrhage hydrocephalus or mass effect. Chest x-ray showed severe left pleural effusion with cardiomegaly. Patient was started on CIWA protocol and also 2 to 3 L via nasal cannula. Patient did undergo CT angio of the chest with no evidence of PE within the pulmonary outflow tract or immediate proximal branches, significant sequela of volume overload with mesenteric ascites and pleural effusions with cirrhotic morphology of the liver and cardiomegaly. Chest ultrasound was performed and left side was marked for possible thoracentesis. The left pleural effusion pocket size is 9.1 cm. Labs reviewed and patient had a normal white count of 5.2, hemoglobin was 13.6, platelets 176, INR 1.3, ABG showed a low pH of 7.28 O2 saturation was 95%. Sodium was 141 with a potassium of 3.9, BUN 16, creatinine mildly elevated at 1.43. Initial lactic acid was 2.1 and repeat remained the same and patient did receive a liter of fluids while in the ER and was continued on normal saline at a rate of 130 mL/h. Later patient did have a BNP drawn which significantly elevated at 22,700. TSH also found to be abnormal at 19 although free T4 was normal at 1.32. Albumin was 3.4. Urinalysis was done and negative and serum alcohol was noted to be less than 10. Troponins were also mildly elevated at 0.061 and trending up. Patient noted to be restless per nursing staff in the ER and was given an additional dose of Valium along with Ativan and then became obtunded and nonresponsive and ultimately required mechanical ventilation to protect airway. Patient is now admitted to the ICU and is being started on Lasix. Cardizem was initiated as well and patient has since converted and Cardizem has been placed on hold. Cardiac/pulmonary have been consulted. Pierre rocha is currently intubated with an FiO2 of 100% and PEEP of 5 maintaining oxygen saturations above 90%. 10/29/2023 Patient seen in follow-up in the ICU continues on mechanical patient continues in the ICU on mechanical ventilation, FiO2 is 50% with PEEP of 5. Patient remains on propofol with multiple consultations following. Patient not requiring pressor support and is maintained on IV Lasix and diuresing. Patient with wounds to bilateral lower extremities with wound care on consult. Overall prognosis is guarded at this time. 10/30/2023 Patient is seen in follow-up today continues to be in the ICU on mechanical ventilation with an FiO2 of 50% and PEEP is 5. Patient did undergo sedation weaning trial although not tolerating and will be continued on sedation. Patient becomes tacky and restless and thrashing during the sedation weaning. Sputum culture preliminary showing presumptive staph and patient is maintained on antibiotics. Continue local wound care and frequent offloading to the buttock area. Patient potassium 3.3 and will be replaced per protocol today. Patient continues with a large left pleural effusion and was maintained on IV Lasix which has been discontinued. Patient is making adequate urine per nursing staff and continues with indwelling Yeung catheter. ----Patient was successfully extubated yesterday. Patient able to respond to yes/no questions but not able to vocalize. He is currently in Afib with a HR in the 90-100s up to 120s and BP of 90s-100 s/60s. Not currently on Cardizem. Echo revealed LV EF 20%, severe biatrial dilatation, trace mitral regurgitation, and moderate tricuspid regurgitation. Current laboratory data includes a white count 7.7, hemoglobin 12.2, hematocrit 38, and a platelet count of 144,000. Sodium 139, potassium 4.1, chlorides 104, CO2 29, BUN 17, creatinine 1.35. Glucose 103. Calcium is 8.6. Procalcitonin level 0.42. Sputum from October 27, shows evidence of Staphylococcus aureus. Chest x-ray shows opacification, in both lungs, left greater than right. There appears to be a left-sided pleural effusion. 11/01/2023 Patient is seen and evaluated in room at bedside; was extubated successfully yesterday, October 29. Currently, he is on 6 L of oxygen. He is getting saline at 10 cc an hour. He still a bit lethargic. Other than that, he had an uneventful night according to the nurses. Lab review shows a white count 7.7, hemoglobin 12.2, hematocrit 38, and a platelet count of 144,000. Sodium 139, potassium 4.1, chlorides 104, CO2 29, BUN 17, creatinine 1.35. Glucose 103. Calcium is 8.6. Procalcitonin level 0.42. Sputum from October 27, shows evidence of Staphylococcus aureus. Chest x- ray shows opacification, in both lungs, left greater than right. There appears to be a left-sided pleural effusion. There may be a small effusion on the right. Patient remains in ICU-plan is to start patient on antibiotic once final culture reports are available 11/02/2023 Patient remains in ICU; and evaluated with sitter at bedside; patient was agitated yesterday evening and through the night; received Haldol which did not help; Seroquel has been added 25 mg 3 times daily -- currently on 4 L oxygen. He is getting dextrose with lactated Ringer's at 75 cc an hour. The patient was agitated through the night, and Haldol, was given once, but did not seem to help. Today we add Seroquel, 25 mg 3 times a day. -- Current laboratory data includes a white count 4, hemoglobin 11.5, hematocrit 36.2, and a platelet count of 133,000. Sodium 135, potassium 4, chlorides 107, CO2 27, BUN 16, creatinine 0.93. Troponin 0.026. Calcium 8.9. Glucose 109. Sputum revealed evidence of oxacillin sensitive Staph aureus. The patient was started on Levaquin. 11/02 Patient is sleeping this morning, he did not sleep well last night He is currently on 3 L oxygen via nasal cannula Getting D5 Ringer lactate at 75 mL/h A plan to undergo swallow evaluation today with the expectation he would pass it Yeung catheter in place with small amount of dark-colored urine, creatinine 0.9 Cozaar was held today because of borderline hypotension with systolic blood pres sure was 98 there is a Sitter at bedside and patient remains lethargic 11/05/2023 Patient is seen in follow-up continues to be in the ICU currently maintained on 3 L via nasal cannula. Patient is tolerating diet although having some nausea today. Patient's mentation is improved although continues with some periods of confusion. Awaiting PT/OT therapy eval and social work consult regarding discharge planning. Patient is stable for transfer out of the ICU and awaiting a bed. Patient is afebrile and denies chest pain or worsening shortness of breath. continue to encourage IS and wean FI02 as tolerated. 11/06/2023 Patient seen in follow-up today as a downgrade from the ICU once a bed is available. Blood pressures have been marginal and on the lower side although patient was maintained on IV Lasix along with metolazone per pulmonary track hoe operator. Patient is diuresing well and also underwent thoracentesis on the left with approximately 2 L removed. Patient continues on 2 L with a oxygen saturation of 98% and working to wean FiO2 as tolerated. Patient was continued on IV Lasix twice daily and does continue with volume overload noted of the lower extremities and would likely benefit from at least daily. Will discuss with pulmonary track hoe operator as sodium is lower at 132, potassium is 3.4 and magnesium is 1.6. Recommend replace electrolytes per protocol. Blood sugars have been monitored and within normal limits and will continue current regimen. Continue to work with patient with physical therapy and also social work as patient lives alone and does have a brother that lives next-door. Strongly recommend rehab on discharge as patient has had prolonged hospitalization and significant weakness. Patient also having left knuckle pain with swelling and redness with history of gout. 11/07/2023 Patient is seen and evaluated in follow-up today with no acute overnight issues noted. Patient continues with significant weakness recommending PT/OT therapy daily. Patient reports he plans on returning home although feel this is an extremely unsafe discharge plan as there are family members reporting he has very unkempt living with social work following and APS is being involved. Patient will likely need ECF on discharge. Patient is maintained on metolazone although would likely benefit from Lasix and will follow-up with repeat labs. Replace electrolytes per protocol. Encouraged oral intake and recommend aspiration precautions. 11/08/2023--was seen and examined today. No issues overnight. Currently on room air. Denied any significant productive cough or chest pain or tightness or wheezing. Pulmonary following, history of COPD, cardiomyopathy, post 2 thoracentesis with subsequent improvement in his respiratory status and oxygenation. Seen by urology, need outpatient follow-up for left-sided diagnostic ureteroscopy to evaluate further. Currently on Eliquis, ordered diuretics with Zaroxolyn. BMP unremarkable, potassium 3.4, replace per protocol. Magnesium 1.5. Afebrile, heart rate 90, respiratory rate 16, blood pressure 98/63, 97% on room air. 11/09/2023--patient was seen and examined today. Resting comfortably in bed. Remains on room air. WBC 3.5, hemoglobin 10.8, platelet 132. BUN 15, creatinine 0.9. Currently on DuoNeb. Also on Zaroxolyn for diuresis. Pulmonary following. Urology consulted for ureteral mass to be worked up on outpatient basis. 11/10/2023 Patient is seen and evaluated in follow-up today and needs to be re-evaluated by PT/OT therapy. Patient with significant weakness and unable to walk recommend rehab although patient would like to go home. Patient being followed by social work and will need to discuss further about discharge planning. Recommend PT daily. Review of systems: Constitutional: No reports of fatigue, fever, or chills Cardiovascular: No reports of chest pain or palpitations Respiratory: No reports of worsening shortness of breath or cough GI: No reports of nausea, vomiting, or diarrhea : No reports of dysuria or retention Neurovascular: reports of generalized weakness All medications have been reviewed PHYSICAL EXAMINATION: GENERAL: The patient is more awake today. No acute distress, alert and oriented x 2-3, baseline, well-developed, elderly appearing HEENT: Pupils are round and equally reacting to light. EOMI. No scleral icterus. No conjunctival pallor. Normocephalic, atraumatic. No pharyngeal erythema. No thyromegaly. CARDIOVASCULAR: S1 and S2 present. No murmurs, rubs, or gallops. PULMONARY: Diminished breath sounds bilaterally otherwise chest is clear to auscultation, no wheezing , no crackles. Improved aeration of the right lung ABDOMEN: Soft, nontender, nondistended, normoactive bowel sounds. No palpable organomegaly. MUSCULOSKELETAL: No joint swelling or deformity. EXTREMITIES: No cyanosis, clubbing, or pedal edema. Bilateral lower extremity edema 1+ pitting noted, left knuckle red and swollen with intense pain on palpation NEUROLOGICAL: Gross neurological examination did not reveal any focal deficits. Diffusely weak SKIN: No rashes. no petechiae. 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, evaluated by urology and to follow up outpatient Tracheobronchitis on Levaquin Large left pleural effusion with a BNP of 22,000, status post thoracentesis with approximately 2 L removed on 11/06/2023 Left index finger knuckle with redness and swelling, concerns for gout flareup with history of gout, improved Elevated troponin, unsure of NSTEMI, likely type II mismatch History of atrial fibrillation, currently atrial fibrillation with rapid ventricular, currently rate controlled History of CVA/TIA with no residual effects in 2006 History of myocardial infarction in 2019 History of GERD History of hypertension generalized weakness with gait dysfunction and inability to ambulate Stage II pressure ulcer of the left buttock, present on admission Unstageable pressure ulcer of the right buttock, present on admission Former smoker Heavy daily alcohol use and drinks about a pint of rum per day Poor social support and poor living situation Noncompliance to medication and follow-up GI prophylaxis dvt prophylaxis full code Plan: Continue with Levaquin for mssa in the sputum Continue with home dose of Eliquis 5 mg Patient is status post thoracentesis on the left side with approximately 2 L removed Pulmonary/critical care team following closely Need PT/OT updated therapy notes and social work following for possible ecf and discharge planning. Patient reports has family next-door that can help although unsure of a safe discharge plan as living situation was inadequate on arrival from EMS. Will need to discuss further regarding discharge planning as PT/OT therapy recommending rehab. Patient with significant weakness and prolonged hospitalization would benefit from ECF on discharge. Social work following and likely reported to APS as there is a niece reporting his house is unkept and unsafe for him to return. Possible discharge planning in the next 24-48 hours. The impression and plan of care has been dictated by Linda Diop, Nurse Practitioner as directed. Dr. Anastacio MD I have performed a history and examination and MDM of this patient, discussed the same with the dictator, and agree with the dictator's assessment and plan as written ,documented as a scribe. Based on total visit time, I have performed more than 50% of the visit. Objective - Vital Signs Vital signs: Vital Signs Temp 98.2 F 11/10/23 08:45 Pulse 100 11/10/23 09:20 Resp 16 11/10/23 08:45 BP 99/63 11/10/23 08:45 Pulse Ox 94 L 11/10/23 09:10 FiO2 4 11/02/23 12:00 Intake & Output 11/09/23 11/10/23 11/10/23 18:59 06:59 18:59 Intake Total 540 540 118 Output Total 350 565 Balance 190 -25 118 Weight 68.7 kg Intake: Oral 540 540 118 Output: Urine 350 565 Other: Voiding Method Urinal Urinal Urinal # Voids 1 # Bowel Movements 1 ABP, PAP, CO, CI - Last Documented Arterial Blood Pressure 97/45 - Labs CBC & Chem 7: 11/09/23 06:39 11/09/23 06:39 Labs: Abnormal Lab Results - Last 24 Hours (Table) 11/09/23 11/10/23 Range/Units 11:51 06:29 POC Glucose (mg/dL) 126 H 116 H (70-110) mg/dL Microbiology - Last 24 Hours (Table) 11/06/23 10:30 Gram Stain - Final Pleural Fluid Body Fluid Culture - Final
[2023-11-11 06:29] LABS: Glucose,Whole Blood 97 mg/dL (70-110)
[2023-11-11 06:46] LABS: Basophils % (A) 1 %; Eosinophils # (A) 0.1 k/uL (0-0.7); Eosinophils % (A) 4 %; HCT 32.9 % (39.0-53.0); HGB 10.8 gm/dL (13.0-17.5); Lymphocytes # (A) 1.1 k/uL (1.0-4.8); Lymphocytes % (A) 34 %; MCH 30.1 pg (25.0-35.0); MCHC 32.9 g/dL (31.0-37.0); MCV 91.3 fL (80.0-100.0); Mean Platelet Volume 9.9; Monocytes # (A) 0.2 k/uL (0-1.0); Monocytes % (A) 6 %; Neutrophils # (A) 1.8 k/uL (1.3-7.7); Neutrophils % (A) 54 %; Platelet Count 144 k/uL (150-450); WBC 3.3 k/uL (3.8-10.6)
[2023-11-11 07:10] LABS: ALT 17 U/L (4-49); AST 36 U/L (17-59); African American GFR (CKD) 84 (>60 ml/min/1.73 sqM); Albumin 2.7 g/dL (3.5-5.0); Alkaline Phosphatase 77 U/L (38-126); Anion Gap 4 mmol/L; Blood Urea Nitrogen 17 mg/dL (9-20); Calcium 8.7 mg/dL (8.4-10.2); Carbon Dioxide 31 mmol/L (22-30); Chloride 100 mmol/L (98-107); Glucose 86 mg/dL (74-99); Magnesium 1.4 mg/dL (1.6-2.3); Non-African American GFR(CKD) 72 (>60 ml/min/1.73 sqM); Potassium 3.5 mmol/L (3.5-5.1); Sodium 135 mmol/L (137-145); Total Bilirubin 0.8 mg/dL (0.2-1.3); Total Protein 5.4 g/dL (6.3-8.2)
[2023-11-11] MEDS: MAGNESIUM SULFATE-D5W PMX 1 GM in DEXTROSE/WATER 1 100ML.BAG IVPB SCH (09:33)
[2023-11-11] MEDS: POTASSIUM CHLORIDE ER 20 MEQ TAB.ER PO SCH (09:33)
[2023-11-11 11:34] LABS: Glucose,Whole Blood 96 mg/dL (70-110)
[2023-11-11 15:11] VITALS: BMI 23.4
--- NOTE | 2023-11-11 15:13 | P.PN ---
Subjective Progress Note Date: 11/11/23 11/06/2023, seen the pulmonary follow-up in the intensive care unit. The patient is doing well with no specific complaints. Remains on oxygen at 4 L/min nasal cannula. Still being diuresed with IV Lasix and oral Zaroxolyn. Fluid balance is -4.9 L over the past 24 hours. A bedside thoracentesis was done and a total of 1.8 L of pleural fluid was aspirated from the left hemithorax without any complications. The blood work from today shows a white cell count of 3.1, hemoglobin of 11.5 and a platelet count of 103. Sodium is at 132, potassium is at 3.4, BUN 15 with a creatinine of 0.95. The procedure was done without any complication. Postoperative chest x-ray showed resolution of the left-sided pleural effusion and there is no evidence of any pneumothorax. There is a small right-sided pleural effusion still present. On a separate note, the patient was seen by urology. The patient has a left ureteral mass with hydronephrosis. He is having some intermittent gross hematuria. Currently this problem is an active complaint. The patient is to be seen by urology and a CT urogram was also ordered and eventually he may need a cystoscopy. On 11/07/2023, the patient is being seen for a follow-up. Patient is left intensive. The patient is currently in the medical floor. The patient is calm and comfortable. No significant respiratory distress. Following the thoracentesis, oxygenation further improved and the patient is currently on room air oxygen. Otherwise, he has no other specific complaints for now. He is producing enough amount of urine output. Labs from today shows a white cell count of 3, hemoglobin 11.5 and a platelet count of 103. BUN 13 with a creatinine of 0.9 and sodium is at 142. The overall fluid balance is negative over the past 24 hours in the order of 4.9 L. Meanwhile, patient remains on Zaroxolyn 5 mg p.o. daily. The patient was taken off the Lasix. Rest of the medications remain unchanged. Continuing a course of Levaquin regarding MSSA in the sputum. The results of the Awaiting further consultation from urology regarding CT urogram that showed a ureteral wall mass/thickening with left-sided hydronephrosis. And poor left renal excretion. Possibility of transitional cell carcinoma within the ureter cannot be completely ruled out. No evidence of any renal calculus. On 11/08/2023, the patient is being seen for a follow-up. The patient has no specific complaints. The patient remains on room air oxygen. No significant cough sputum production or chest tightness or wheezing. No respiratory distress at this point in time. He is known to have COPD, cardiomyopathy and is postthoracentesis with subsequent improvement in and has respiratory status and oxygenation. Meanwhile, the patient was found to have a left distal ureteral mass and the patient denies having any flank pain or gross hematuria. He was seen by urology and the patient will need an outpatient left-sided diagnostic ureteroscopy to evaluate further. Labs from today show a BUN of 15 with a creatinine of 1 and sodium is at 132 and a potassium level is five 3.4. Remains on anticoagulation with Eliquis. Remains on Zaroxolyn 5 mg p.o. daily. Rest of the medications are essentially unchanged. 11/09/2023, the patient is being seen for a follow-up. Resting comfortably in bed. No specific complaints. Remains on room air oxygen. The white cell count is at 3.5 with a hemoglobin of 10.8 and a platelet count of 132. BUN is 15 with a creatinine of 0.9. Remains on DuoNeb nebulized treatments [id number]. Remains on Zaroxolyn. Producing adequate amount of urine output. Urology is on the case regarding the ureteral mass that needs to be worked up on outpatient basis. Patient was seen on 11/10/2023, on room air, O2 sats 93%, patient does not seem to be in any distress. Patient has tolerated the extubation well, he is not in any distress, being treated for congestive heart failure patient required thoracentesis and had significant amount of pleural effusion drained by Dr. frank patient denies any cough, denies any wheezing, he was seen by urology and may require outpatient left-sided diagnostic ureteroscopy to evaluate further. Patient remains on diuretics, and improving steadily. Last chest x- ray from 11/06/2023, showed significant improvement in his fluid status and no further pleural effusion noted The patient was seen today November 11, 2023 in follow-up on the selective care unit. He is currently resting fairly comfortably in bed. Awake and alert in no acute distress. He denies any worsening shortness of breath, cough or con gestion. He is maintaining O2 saturations in the 90s on room air. He has been afebrile. Hemodynamically stable. Culture was positive for MSSA. Blood cultures revealed no growth. White count 3.3. Hemoglobin 10.8. Platelets 144. Sodium 135. Potassium 3.5. Bicarb 31. BUN 17. Creatinine 1.04. Glucose 86. Liters. Anticoagulated with Eliquis. Continued on oral diuretics. Objective - Vital Signs Vital signs: Vital Signs Temp 97.4 F L 11/11/23 11:30 Pulse 86 11/11/23 13:06 Resp 20 11/11/23 11:30 BP 107/62 11/11/23 11:30 Pulse Ox 98 11/11/23 11:30 FiO2 4 11/02/23 12:00 Intake & Output 11/10/23 11/11/23 11/11/23 18:59 06:59 18:59 Intake Total 598 120 240 Output Total 950 450 525 Balance -352 -330 -285 Weight 68 kg Intake: Oral 598 120 240 Output: Urine 950 450 525 Other: Voiding Method Urinal Urinal Urinal # Voids 1 ABP, PAP, CO, CI - Last Documented Arterial Blood Pressure 97/45 - Exam GENERAL EXAM: Alert, 73-year-old male, on room air, comfortable in no apparent distress. HEAD: Normocephalic. EYES: Normal reaction of pupils, equal size. NOSE: Clear with pink turbinates. THROAT: No erythema or exudates. NECK: No masses, no JVD. CHEST: No chest wall deformity. LUNGS: Equal air entry with no crackles, wheeze, rhonchi or dullness. CVS: S1 and S2 normal with no audible murmur, regular rhythm. ABDOMEN: No hepatosplenomegaly, normal bowel sounds, no guarding or rigidity. SPINE: No scoliosis or deformity SKIN: No rashes CENTRAL NERVOUS SYSTEM: No focal deficits, tone is normal in all 4 extremities. EXTREMITIES: There is no peripheral edema. No clubbing, no cyanosis. Peripheral pulses are intact. - Labs CBC & Chem 7: 11/11/23 06:09 11/11/23 06:09 Labs: Abnormal Lab Results - Last 24 Hours (Table) 11/11/23 11/11/23 Range/Units 06:09 06:09 WBC 3.3 L (3.8-10.6) k/uL RBC 3.60 L (4.30-5.90) m/uL Hgb 10.8 L (13.0-17.5) gm/dL Hct 32.9 L (39.0-53.0) % RDW 16.0 H (11.5-15.5) % Plt Count 144 L (150-450) k/uL Sodium 135 L (137-145) mmol/L Carbon Dioxide 31 H (22-30) mmol/L Magnesium 1.4 L (1.6-2.3) mg/dL Total Protein 5.4 L (6.3-8.2) g/dL Albumin 2.7 L (3.5-5.0) g/dL Assessment and Plan Assessment: Acute hypoxic respiratory compromise/failure, secondary to Ativan administration, requiring intubation and mechanical ventilation, October 28, 2023. The patient was extubated on 10/30/2023. Bilateral pleural effusions, left more than right, status post thoracentesis of left lung improving now with diuretics Possible MSSA pneumonia/tracheobronchitis based on sputum cultures Systolic heart failure , EF 20% MARK, recovered and the patient has evidence of nephrolithiasis and left hydronephrosis Left renal hydronephrosis with transition point within the distal left ureter, being followed by urology. History of CVA. History of atrial fibrillation. Hypothyroidism. Gastroesophageal reflux disease. History of myocardial infarction. History of hypertension. History of ongoing tobacco use. History of chronic alcohol abuse. Pressure ulcer in the sacrum, DTI Plan: The patient was seen and evaluated Currently stable and on room air Continue the current treatment plan Plan is for subacute rehab at discharge I have personally seen and examined the patient, performed the documentation and the assessment and plan as written. Number of minutes spent on the visit: 10.
[2023-11-11 16:32] LABS: Glucose,Whole Blood 116 mg/dL (70-110)
[2023-11-11 20:17] LABS: Glucose,Whole Blood 115 mg/dL (70-110)
--- NOTE | 2023-11-12 05:38 | P.PN ---
Subjective Progress Note Date: 11/11/23 This is a 73-year-old male who presented to the emergency department via EMS with reports from the emergency department that patient was altered and debilitated in his living situation at home is very unkempt including multiple animals who appear malnourished and on care for as well. Unsure of last primary care provider and any compliance to follow-up in the outpatient setting. Per medical record patient does have a history of atrial fibrillation with documented medication refills by razor grinder Dr. Moralez earlier this year, history of CVA/TIA, GERD, hypertension, previous myocardial infarction, former smoker and significant daily EtOH use. Patient was admitted initially to [facility] for altered mental status with acute NSTEMI and weakness with debility, possible alcohol withdrawal and atrial fibrillation uncontrolled with RVR. EKG showed atrial fibrillation with RVR and heart rate was 105, brain CT was performed showing no acute hemorrhage hydrocephalus or mass effect. Chest x-ray showed severe left pleural effusion with cardiomegaly. Patient was started on CIWA protocol and also 2 to 3 L via nasal cannula. Patient did undergo CT angio of the chest with no evidence of PE within the pulmonary outflow tract or immediate proximal branches, significant sequela of volume overload with mesenteric ascites and pleural effusions with cirrhotic morphology of the liver and cardiomegaly. Chest ultrasound was performed and left side was marked for possible thoracentesis. The left pleural effusion pocket size is 9.1 cm. Labs reviewed and patient had a normal white count of 5.2, hemoglobin was 13.6, platelets 176, INR 1.3, ABG showed a low pH of 7.28 O2 saturation was 95%. Sodium was 141 with a potassium of 3.9, BUN 16, creatinine mildly elevated at 1.43. Initial lactic acid was 2.1 and repeat remained the same and patient did receive a liter of fluids while in the ER and was continued on normal saline at a rate of 130 mL/h. Later patient did have a BNP drawn which significantly elevated at 22,700. TSH also found to be abnormal at 19 although free T4 was normal at 1.32. Albumin was 3.4. Urinalysis was done and negative and serum alcohol was noted to be less than 10. Troponins were also mildly elevated at 0.061 and trending up. Patient noted to be restless per nursing staff in the ER and was given an additional dose of Valium along with Ativan and then became obtunded and nonresponsive and ultimately required mechanical ventilation to protect airway. Patient is now admitted to the ICU and is being started on Lasix. Cardizem was initiated as well and patient has since converted and Cardizem has been placed on hold. Cardiac/pulmonary have been consulted. Pierre rocha is currently intubated with an FiO2 of 100% and PEEP of 5 maintaining oxygen saturations above 90%. 10/29/2023 Patient seen in follow-up in the ICU continues on mechanical patient continues in the ICU on mechanical ventilation, FiO2 is 50% with PEEP of 5. Patient remains on propofol with multiple consultations following. Patient not requiring pressor support and is maintained on IV Lasix and diuresing. Patient with wounds to bilateral lower extremities with wound care on consult. Overall prognosis is guarded at this time. 10/30/2023 Patient is seen in follow-up today continues to be in the ICU on mechanical ventilation with an FiO2 of 50% and PEEP is 5. Patient did undergo sedation weaning trial although not tolerating and will be continued on sedation. Patient becomes tacky and restless and thrashing during the sedation weaning. Sputum culture preliminary showing presumptive staph and patient is maintained on antibiotics. Continue local wound care and frequent offloading to the buttock area. Patient potassium 3.3 and will be replaced per protocol today. Patient continues with a large left pleural effusion and was maintained on IV Lasix which has been discontinued. Patient is making adequate urine per nursing staff and continues with indwelling Yeung catheter. ----Patient was successfully extubated yesterday. Patient able to respond to yes/no questions but not able to vocalize. He is currently in Afib with a HR in the 90-100s up to 120s and BP of 90s-100 s/60s. Not currently on Cardizem. Echo revealed LV EF 20%, severe biatrial dilatation, trace mitral regurgitation, and moderate tricuspid regurgitation. Current laboratory data includes a white count 7.7, hemoglobin 12.2, hematocrit 38, and a platelet count of 144,000. Sodium 139, potassium 4.1, chlorides 104, CO2 29, BUN 17, creatinine 1.35. Glucose 103. Calcium is 8.6. Procalcitonin level 0.42. Sputum from October 27, shows evidence of Staphylococcus aureus. Chest x-ray shows opacification, in both lungs, left greater than right. There appears to be a left-sided pleural effusion. 11/01/2023 Patient is seen and evaluated in room at bedside; was extubated successfully yesterday, October 29. Currently, he is on 6 L of oxygen. He is getting saline at 10 cc an hour. He still a bit lethargic. Other than that, he had an uneventful night according to the nurses. Lab review shows a white count 7.7, hemoglobin 12.2, hematocrit 38, and a platelet count of 144,000. Sodium 139, potassium 4.1, chlorides 104, CO2 29, BUN 17, creatinine 1.35. Glucose 103. Calcium is 8.6. Procalcitonin level 0.42. Sputum from October 27, shows evidence of Staphylococcus aureus. Chest x- ray shows opacification, in both lungs, left greater than right. There appears to be a left-sided pleural effusion. There may be a small effusion on the right. Patient remains in ICU-plan is to start patient on antibiotic once final culture reports are available 11/02/2023 Patient remains in ICU; and evaluated with sitter at bedside; patient was agitated yesterday evening and through the night; received Haldol which did not help; Seroquel has been added 25 mg 3 times daily -- currently on 4 L oxygen. He is getting dextrose with lactated Ringer's at 75 cc an hour. The patient was agitated through the night, and Haldol, was given once, but did not seem to help. Today we add Seroquel, 25 mg 3 times a day. -- Current laboratory data includes a white count 4, hemoglobin 11.5, hematocrit 36.2, and a platelet count of 133,000. Sodium 135, potassium 4, chlorides 107, CO2 27, BUN 16, creatinine 0.93. Troponin 0.026. Calcium 8.9. Glucose 109. Sputum revealed evidence of oxacillin sensitive Staph aureus. The patient was started on Levaquin. 11/02 Patient is sleeping this morning, he did not sleep well last night He is currently on 3 L oxygen via nasal cannula Getting D5 Ringer lactate at 75 mL/h A plan to undergo swallow evaluation today with the expectation he would pass it Yeung catheter in place with small amount of dark-colored urine, creatinine 0.9 Cozaar was held today because of borderline hypotension with systolic blood pres sure was 98 there is a Sitter at bedside and patient remains lethargic 11/05/2023 Patient is seen in follow-up continues to be in the ICU currently maintained on 3 L via nasal cannula. Patient is tolerating diet although having some nausea today. Patient's mentation is improved although continues with some periods of confusion. Awaiting PT/OT therapy eval and social work consult regarding discharge planning. Patient is stable for transfer out of the ICU and awaiting a bed. Patient is afebrile and denies chest pain or worsening shortness of breath. continue to encourage IS and wean FI02 as tolerated. 11/06/2023 Patient seen in follow-up today as a downgrade from the ICU once a bed is available. Blood pressures have been marginal and on the lower side although patient was maintained on IV Lasix along with metolazone per pulmonary mold washer. Patient is diuresing well and also underwent thoracentesis on the left with approximately 2 L removed. Patient continues on 2 L with a oxygen saturation of 98% and working to wean FiO2 as tolerated. Patient was continued on IV Lasix twice daily and does continue with volume overload noted of the lower extremities and would likely benefit from at least daily. Will discuss with pulmonary mold washer as sodium is lower at 132, potassium is 3.4 and magnesium is 1.6. Recommend replace electrolytes per protocol. Blood sugars have been monitored and within normal limits and will continue current regimen. Continue to work with patient with physical therapy and also social work as patient lives alone and does have a brother that lives next-door. Strongly recommend rehab on discharge as patient has had prolonged hospitalization and significant weakness. Patient also having left knuckle pain with swelling and redness with history of gout. 11/07/2023 Patient is seen and evaluated in follow-up today with no acute overnight issues noted. Patient continues with significant weakness recommending PT/OT therapy daily. Patient reports he plans on returning home although feel this is an extremely unsafe discharge plan as there are family members reporting he has very unkempt living with social work following and APS is being involved. Patient will likely need ECF on discharge. Patient is maintained on metolazone although would likely benefit from Lasix and will follow-up with repeat labs. Replace electrolytes per protocol. Encouraged oral intake and recommend aspiration precautions. 11/08/2023--was seen and examined today. No issues overnight. Currently on room air. Denied any significant productive cough or chest pain or tightness or wheezing. Pulmonary following, history of COPD, cardiomyopathy, post 2 thoracentesis with subsequent improvement in his respiratory status and oxygenation. Seen by urology, need outpatient follow-up for left-sided diagnostic ureteroscopy to evaluate further. Currently on Eliquis, ordered diuretics with Zaroxolyn. BMP unremarkable, potassium 3.4, replace per protocol. Magnesium 1.5. Afebrile, heart rate 90, respiratory rate 16, blood pressure 98/63, 97% on room air. 11/09/2023--patient was seen and examined today. Resting comfortably in bed. Remains on room air. WBC 3.5, hemoglobin 10.8, platelet 132. BUN 15, creatinine 0.9. Currently on DuoNeb. Also on Zaroxolyn for diuresis. Pulmonary following. Urology consulted for ureteral mass to be worked up on outpatient basis. 11/10/2023 Patient is seen and evaluated in follow-up today and needs to be re-evaluated by PT/OT therapy. Patient with significant weakness and unable to walk recommend rehab although patient would like to go home. Patient being followed by social work and will need to discuss further about discharge planning. Recommend PT daily. 11/11/2023 Patient is seen in follow-up with no acute overnight issues noted. Patient reports to tolerating diet and denies nausea or vomiting although not much of an appetite. Patient is maintained on dysphagia soft diet. Potassium and magnesium slightly low and being replaced per protocol and will follow-up with repeat labs. Recommend reevaluation by PT/OT therapy for updated notes as patient will require insurance authorization to [facility]. Social work following and submitting for authorization. Patient is continued on breathing treatments and will continue and remains on room air. Review of systems: Constitutional: No reports of fatigue, fever, or chills Cardiovascular: No reports of chest pain or palpitations Respiratory: No reports of worsening shortness of breath or cough GI: No reports of nausea, vomiting, or diarrhea : No reports of dysuria or retention Neurovascular: reports of generalized weakness All medications have been reviewed PHYSICAL EXAMINATION: GENERAL: The patient is sleeping although easily arousable. No acute distress, alert and oriented x 2-3, baseline, well-developed, elderly appearing HEENT: Pupils are round and equally reacting to light. EOMI. No scleral icterus. No conjunctival pallor. Normocephalic, atraumatic. No pharyngeal erythema. No thyromegaly. CARDIOVASCULAR: S1 and S2 present. No murmurs, rubs, or gallops. PULMONARY: Diminished breath sounds bilaterally otherwise chest is clear to auscultation, no wheezing , no crackles. Improved aeration of the right lung ABDOMEN: Soft, nontender, nondistended, normoactive bowel sounds. No palpable organomegaly. MUSCULOSKELETAL: No joint swelling or deformity. EXTREMITIES: No cyanosis, clubbing, or pedal edema. Bilateral lower extremity edema 1+ pitting noted NEUROLOGICAL: Gross neurological examination did not reveal any focal deficits. Diffusely weak SKIN: No rashes. no petechiae. 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, evaluated by urology and to follow up outpatient Tracheobronchitis on Levaquin and has completed the course Large left pleural effusion with a BNP of 22,000, status post thoracentesis with approximately 2 L removed on 11/06/2023 Left index finger knuckle with redness and swelling, concerns for gout flareup with history of gout, improved Elevated troponin, unsure of NSTEMI, likely type II mismatch History of atrial fibrillation, currently atrial fibrillation with rapid ventricular, currently rate controlled History of CVA/TIA with no residual effects in 2006 History of myocardial infarction in 2019 History of GERD History of hypertension generalized weakness with gait dysfunction and inability to ambulate Stage II pressure ulcer of the left buttock, present on admission Unstageable pressure ulcer of the right buttock, present on admission Former smoker Heavy daily alcohol use and drinks about a pint of rum per day Poor social support and poor living situation Noncompliance to medication and follow-up GI prophylaxis dvt prophylaxis full code Plan: Continue with current medications and home medications reviewed and resumed Pulmonary following and is status post thoracentesis on the fifth of this month with approximately 2 L removed and remains on room air with no reports of shortness of breath Need PT/OT updated therapy notes and social work following for ecf on discharge. Patient reports has family next-door that can help although unsure of a safe discharge plan as living situation was inadequate on arrival from EMS. Will need to discuss further regarding discharge planning as PT/OT therapy recommending rehab. Patient with significant weakness and prolonged hospitalization would benefit from ECF on discharge. Social work following and likely reported to APS as there is a niece reporting his house is unkept and unsafe for him to return. Magnesium and potassium slightly low today and will replace per protocol and follow-up on repeat labs. Encouraged increase activity as tolerated and sitting up in the chair more frequently Insurance authorization was submitted and currently pending. Possible discharge planning in the next 24-48 hours. The impression and plan of care has been dictated by Linda Diop, Nurse Practitioner as directed. Dr. Anastacio MD I have performed a history and examination and MDM of this patient, discussed the same with the dictator, and agree with the dictator's assessment and plan as written ,documented as a scribe. Based on total visit time, I have performed more than 50% of the visit. Objective - Vital Signs Vital signs: Vital Signs Temp 97.4 F L 11/11/23 11:30 Pulse 86 11/11/23 13:06 Resp 20 11/11/23 11:30 BP 107/62 11/11/23 11:30 Pulse Ox 98 11/11/23 11:30 FiO2 4 11/02/23 12:00 Intake & Output 11/10/23 11/11/23 11/11/23 18:59 06:59 18:59 Intake Total 598 120 240 Output Total 950 450 525 Balance -352 -330 -285 Weight 68 kg 68 kg Intake: Oral 598 120 240 Output: Urine 950 450 525 Other: Voiding Method Urinal Urinal Urinal # Voids 1 2 # Bowel Movements 1 ABP, PAP, CO, CI - Last Documented Arterial Blood Pressure 97/45 - Labs CBC & Chem 7: 11/11/23 06:09 11/11/23 06:09 Labs: Abnormal Lab Results - Last 24 Hours (Table) 11/11/23 11/11/23 Range/Units 06:09 06:09 WBC 3.3 L (3.8-10.6) k/uL RBC 3.60 L (4.30-5.90) m/uL Hgb 10.8 L (13.0-17.5) gm/dL Hct 32.9 L (39.0-53.0) % RDW 16.0 H (11.5-15.5) % Plt Count 144 L (150-450) k/uL Sodium 135 L (137-145) mmol/L Carbon Dioxide 31 H (22-30) mmol/L Magnesium 1.4 L (1.6-2.3) mg/dL Total Protein 5.4 L (6.3-8.2) g/dL Albumin 2.7 L (3.5-5.0) g/dL
[2023-11-12 05:52] LABS: Glucose,Whole Blood 218 mg/dL (70-110)
[2023-11-12 09:26] LABS: African American GFR (CKD) 76 (>60 ml/min/1.73 sqM); Anion Gap 6 mmol/L; Blood Urea Nitrogen 22 mg/dL (9-20); Calcium 9.1 mg/dL (8.4-10.2); Carbon Dioxide 30 mmol/L (22-30); Chloride 100 mmol/L (98-107); Glucose 108 mg/dL (74-99); Magnesium 1.6 mg/dL (1.6-2.3); Non-African American GFR(CKD) 65 (>60 ml/min/1.73 sqM); Potassium 3.4 mmol/L (3.5-5.1); Sodium 136 mmol/L (137-145)
[2023-11-12] MEDS: POTASSIUM CHLORIDE ER 20 MEQ TAB.ER PO SCH (10:13)
[2023-11-12] MEDS: MAGNESIUM SULFATE-D5W PMX 1 GM in DEXTROSE/WATER 1 100ML.BAG IVPB SCH (10:13)
[2023-11-12 11:39] LABS: Glucose,Whole Blood 138 mg/dL (70-110)
--- NOTE | 2023-11-12 14:44 | P.DS ---
Providers Date of admission: 10/28/23 03:36 Expected date of discharge: 11/12/23 Attending physician: Shree Beach Consults: 10/28/23 05:55 Consult Physician Routine Consulting Provider: Yeyo Xiao Consult Reason/Comments: effusion Do you want consulting provider notified?: Yes 10/28/23 05:56 Consult Physician Routine Consulting Provider: Jose Akbar Consult Reason/Comments: ams,etoh Do you want consulting provider notified?: Already Contacted Consult Physician Routine Consulting Provider: Tabitha Martinez Consult Reason/Comments: ams Do you want consulting provider notified?: Yes 10/28/23 09:22 Consult Physician Stat Consulting Provider: Yeyo Xiao Consult Reason/Comments: resp distress, poss intub Do you want consulting provider notified?: Yes 11/05/23 10:43 Consult Physician Routine Consulting Provider: David Mansfield Consult Reason/Comments: ureteral mass Do you want consulting provider notified?: Yes Primary care physician: Stated None Hospital Course: Final diagnosis Acute altered mental status, likely metabolic encephalopathy secondary to acute alcohol withdrawal, EtOH level was less than 10 the patient drinks heavily daily per medical record, resolved Acute hypoxic respiratory failure with respiratory compromise possibly secondary to multiple doses of Ativan/Valium requiring mechanical ventilation to protect the airway 10/28/2023, currently extubated and now maintained on room air Congestive heart failure, acute exacerbation, likely acute on chronic, EF: 20%, currently stable Alcoholic liver cirrhosis Pancytopenia 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, evaluated by urology and to follow up outpatient Tracheobronchitis on Levuin and has completed the course Large left pleural effusion with a BNP of 22,000, status post thoracentesis with approximately 2 L removed on 11/06/2023 Left index finger knuckle with redness and swelling, concerns for gout flareup with history of gout, improved Elevated troponin, unsure of NSTEMI, likely type II mismatch History of atrial fibrillation, currently atrial fibrillation with rapid ventricular, currently rate controlled History of CVA/TIA with no residual effects in 2006 History of myocardial infarction in 2019 History of GERD History of hypertension generalized weakness with gait dysfunction and inability to ambulate Stage II pressure ulcer of the left buttock, present on admission Unstageable pressure ulcer of the right buttock, present on admission Former smoker Heavy daily alcohol use and drinks about a pint of rum per day Poor social support and poor living situation Noncompliance to medication and follow-up GI prophylaxis dvt prophylaxis full code Discharge disposition Patient is being discharged in a stable condition with guarded prognosis to [facility]. Patient will follow-up with physician and establish in the outpatient setting upon discharge. Patient is to continue with outpatient follow-up with cardiology and pulmonary as scheduled. Total time taken is greater than 35 minutes. Hospital course This is a 73-year-old male who was recently admitted with altered mental status metabolic encephalopathy secondary to acute alcohol withdrawal with clinical decline and respiratory distress requiring mechanical ventilation on admission. Patient also noted to have an EF of 20% with congestive heart failure likely acute on chronic although no documented history previously. Patient is an alcoholic and reported to family he was not drinking any more although he has been drinking quite heavily daily per niece and is noted to have alcoholic liver cirrhosis. Patient also with findings of left ureteral mass and left hydronephrosis that was evaluated by urology recommending outpatient follow-up and further imaging and close monitoring. Patient was successfully extubated also having large pleural effusions requiring thoracentesis with approximately 2 L removed. Patient has recovered from hypoxic respiratory failure and is currently on room air. Patient with significant weakness and prolonged hospitalization with inability to walk was evaluated by physical therapy recommending rehab and patient is now agreeable. Patient initially wanted to go home although he reports he lives home alone and there have been other comments made by family members reporting his unsafe living conditions. Social work following submitted for insurance authorization which was approved and patient will be going to [facility]. Please refer to other consultation notes for further HPI as patient has been cleared by consultations. Currently no reports of chest pain, shortness of breath, or palpitations. Patient is afebrile. No reports of nausea or vomiting and patient is tolerating diet. Patient will be g oing to [facility] today. Guarded prognosis and high risk for readmissions given patient's significant comorbidities and noncompliance with follow-up and medication use. Physical exam: Gen: This is a 73-year-old male who is awake, alert and oriented x 3, well- developed, elderly appearing, ill-appearing HEENT: Head is atraumatic, normocephalic. Pupils equal, round. Sclerae is anicteric. NECK: Supple. No JVD. No lymphadenopathy. No thyromegaly. LUNGS: Diminished breath sounds bilaterally otherwise clear to auscultation. Coarse rhonchi noted. No intercostal retractions. HEART: S1, S2 are muffled ABDOMEN: Soft. Bowel sounds are present. No masses. No tenderness. EXTREMITIES: No pedal edema. No calf tenderness. Bilateral lower extremity edema noted, improving, nonpitting NEUROLOGICAL: Patient is awake, alert and oriented x3. Cranial nerves 2 through 12 are grossly intact. Diffusely weak Please refer to medication reconciliation sheet for a list of medications. The impression and plan of care has been dictated by Linda Diop, Nurse Practitioner as directed. Dr. Anastacio MD I have performed a history and examination and MDM of this patient, discussed the same with the dictator, and agree with the dictator's assessment and plan as written ,documented as a scribe. Based on total visit time, I have performed more than 50% of the visit. Patient Condition at Discharge: Fair Plan - Discharge Summary Discharge Rx Participant: No New Discharge Prescriptions: New Ipratropium-Albuterol Nebulize [Duoneb 0.5 mg-3 mg/3 ml Soln] 3 ml INHALATION RT-QID each Nicotine 14Mg/24Hr Patch [Habitrol] 1 patch TRANSDERM DAILY patch Furosemide [Lasix] 40 mg PO DAILY tab Multivitamins, Thera [Multivitamin (formulary)] 1 each PO DAILY tab Midodrine [ProAmatine] 5 mg PO AC-TID tab Pantoprazole [Protonix] 40 mg PO AC-BRKFST tab QUEtiapine [SEROquel] 25 mg PO TID tab Levothyroxine Sodium [Synthroid] 200 mcg PO DAILY@0630 tab Magnesium Oxide [Magox 400] 400 mg PO AC-BRKFST #30 tablet Folic Acid 1 mg PO DAILY tab Metoprolol Tartrate [Lopressor] 12.5 mg PO BID tab Nystatin 100,000 Unit/gm Oint [Mycostatin Oint] 1 applic TOPICAL BID each Thiamine [Vitamin B-1] 100 mg PO DAILY #30 tablet Potassium Chloride [Klor-Con 20 Packets] 20 meq PO AC-BID #60 packet Continue Apixaban [Eliquis] 5 mg PO BID #60 tab Discontinued Furosemide [Lasix] 20 mg PO DAILY Midodrine [ProAmatine] 2.5 mg PO AC-TID 30 Days #90 tab Discharge Medication List Apixaban [Eliquis] 5 mg PO BID #60 tab 04/16/18 [Rx] Folic Acid 1 mg PO DAILY tab 11/12/23 [Rx] Furosemide [Lasix] 40 mg PO DAILY tab 11/12/23 [Rx] Ipratropium-Albuterol Nebulize [Duoneb 0.5 mg-3 mg/3 ml Soln] 3 ml INHALATION RT-QID each 11/12/23 [Rx] Levothyroxine Sodium [Synthroid] 200 mcg PO DAILY@0630 tab 11/12/23 [Rx] Magnesium Oxide [Magox 400] 400 mg PO AC-BRKFST #30 tablet 11/12/23 [Rx] Metoprolol Tartrate [Lopressor] 12.5 mg PO BID tab 11/12/23 [Rx] Midodrine [ProAmatine] 5 mg PO AC-TID tab 11/12/23 [Rx] Multivitamins, Thera [Multivitamin (formulary)] 1 each PO DAILY tab 11/12/23 [Rx] Nicotine 14Mg/24Hr Patch [Habitrol] 1 patch TRANSDERM DAILY patch 11/12/23 [Rx] Nystatin 100,000 Unit/gm Oint [Mycostatin Oint] 1 applic TOPICAL BID each 11/12/23 [Rx] Pantoprazole [Protonix] 40 mg PO AC-BRKFST tab 11/12/23 [Rx] Potassium Chloride [Klor-Con 20 Packets] 20 meq PO AC-BID #60 packet 11/12/23 [Rx] QUEtiapine [SEROquel] 25 mg PO TID tab 11/12/23 [Rx] Thiamine [Vitamin B-1] 100 mg PO DAILY #30 tablet 11/12/23 [Rx] Follow up Appointment(s)/Referral(s): Elle Lopez MD [STAFF PHYSICIAN] - 1 Week Leonides Reyna MD [STAFF PHYSICIAN] - 1 Week [facility], [NON-STAFF] - 1 Week Ambulatory/Diagnostic Orders: Basic Metabolic Panel [LAB.AMB] Time Frame: 3 Days, Location: None Selected Activity/Diet/Wound Care/Special Instructions: Patient is going to [facility] as tolerated Follow-up and establish with a primary care provider on discharge Follow-up with pulmonary outpatient Follow-up with urology outpatient for outpatient testing regarding a possible bladder mass noted this admission Continue taking medications as prescribed Repeat labs to monitor BMP and magnesium Continue with zinc barrier paste to the coccyx area and offloading with position changes every few hours Continue dysphagia 3 chopped diet and aspiration precautions with head of the bed elevated 35 degrees at all times and supervision with meals Discharge Disposition: TRANSFER TO SNF/ECF
--- NOTE | 2023-11-12 15:17 | P.PN ---
Subjective Progress Note Date: 11/12/23 11/06/2023, seen the pulmonary follow-up in the intensive care unit. The patient is doing well with no specific complaints. Remains on oxygen at 4 L/min nasal cannula. Still being diuresed with IV Lasix and oral Zaroxolyn. Fluid balance is -4.9 L over the past 24 hours. A bedside thoracentesis was done and a total of 1.8 L of pleural fluid was aspirated from the left hemithorax without any complications. The blood work from today shows a white cell count of 3.1, hemoglobin of 11.5 and a platelet count of 103. Sodium is at 132, potassium is at 3.4, BUN 15 with a creatinine of 0.95. The procedure was done without any complication. Postoperative chest x-ray showed resolution of the left-sided pleural effusion and there is no evidence of any pneumothorax. There is a small right-sided pleural effusion still present. On a separate note, the patient was seen by urology. The patient has a left ureteral mass with hydronephrosis. He is having some intermittent gross hematuria. Currently this problem is an active complaint. The patient is to be seen by urology and a CT urogram was also ordered and eventually he may need a cystoscopy. On 11/07/2023, the patient is being seen for a follow-up. Patient is left intensive. The patient is currently in the medical floor. The patient is calm and comfortable. No significant respiratory distress. Following the thoracentesis, oxygenation further improved and the patient is currently on room air oxygen. Otherwise, he has no other specific complaints for now. He is producing enough amount of urine output. Labs from today shows a white cell count of 3, hemoglobin 11.5 and a platelet count of 103. BUN 13 with a creatinine of 0.9 and sodium is at 142. The overall fluid balance is negative over the past 24 hours in the order of 4.9 L. Meanwhile, patient remains on Zaroxolyn 5 mg p.o. daily. The patient was taken off the Lasix. Rest of the medications remain unchanged. Continuing a course of Levaquin regarding MSSA in the sputum. The results of the Awaiting further consultation from urology regarding CT urogram that showed a ureteral wall mass/thickening with left-sided hydronephrosis. And poor left renal excretion. Possibility of transitional cell carcinoma within the ureter cannot be completely ruled out. No evidence of any renal calculus. On 11/08/2023, the patient is being seen for a follow-up. The patient has no specific complaints. The patient remains on room air oxygen. No significant cough sputum production or chest tightness or wheezing. No respiratory distress at this point in time. He is known to have COPD, cardiomyopathy and is postthoracentesis with subsequent improvement in and has respiratory status and oxygenation. Meanwhile, the patient was found to have a left distal ureteral mass and the patient denies having any flank pain or gross hematuria. He was seen by urology and the patient will need an outpatient left-sided diagnostic ureteroscopy to evaluate further. Labs from today show a BUN of 15 with a creatinine of 1 and sodium is at 132 and a potassium level is five 3.4. Remains on anticoagulation with Eliquis. Remains on Zaroxolyn 5 mg p.o. daily. Rest of the medications are essentially unchanged. 11/09/2023, the patient is being seen for a follow-up. Resting comfortably in bed. No specific complaints. Remains on room air oxygen. The white cell count is at 3.5 with a hemoglobin of 10.8 and a platelet count of 132. BUN is 15 with a creatinine of 0.9. Remains on DuoNeb nebulized treatments [id number]. Remains on Zaroxolyn. Producing adequate amount of urine output. Urology is on the case regarding the ureteral mass that needs to be worked up on outpatient basis. Patient was seen on 11/10/2023, on room air, O2 sats 93%, patient does not seem to be in any distress. Patient has tolerated the extubation well, he is not in any distress, being treated for congestive heart failure patient required thoracentesis and had significant amount of pleural effusion drained by Dr. frank patient denies any cough, denies any wheezing, he was seen by urology and may require outpatient left-sided diagnostic ureteroscopy to evaluate further. Patient remains on diuretics, and improving steadily. Last chest x- ray from 11/06/2023, showed significant improvement in his fluid status and no further pleural effusion noted The patient was seen today November 11, 2023 in follow-up on the selective care unit. He is currently resting fairly comfortably in bed. Awake and alert in no acute distress. He denies any worsening shortness of breath, cough or con gestion. He is maintaining O2 saturations in the 90s on room air. He has been afebrile. Hemodynamically stable. Culture was positive for MSSA. Blood cultures revealed no growth. White count 3.3. Hemoglobin 10.8. Platelets 144. Sodium 135. Potassium 3.5. Bicarb 31. BUN 17. Creatinine 1.04. Glucose 86. Liters. Anticoagulated with Eliquis. Continued on oral diuretics. The patient is seen today November 12, 2023 in follow-up on the selective care unit. He is currently resting comfortably in bed. Awake and alert in no acute distress. He is maintaining good O2 saturations in the mid 90s on room air. Has been afebrile. Hemodynamically stable. Sputum culture was positive for Staph aureus back on 10/28/2023. Pleural fluid cultures revealed no growth. 136. Potassium 3.4. Bicarb 30. BUN 22. Creatinine 1.13. Glucose 108. He is continued on DuoNeb and elations. NicoDerm patch in place. Anticoagulated with Eliquis. Remains on oral diuretics. Objective - Vital Signs Vital signs: Vital Signs Temp 98.4 F 11/12/23 08:00 Pulse 84 11/12/23 13:25 Resp 16 11/12/23 12:41 BP 89/58 11/12/23 11:08 Pulse Ox 95 11/12/23 11:08 FiO2 4 11/02/23 12:00 Intake & Output 11/11/23 11/12/23 11/12/23 18:59 06:59 18:59 Intake Total 358 240 Output Total 1000 950 400 Balance -642 -710 -400 Weight 68 kg 68.9 kg Intake: Oral 358 240 Output: Urine 1000 950 400 Other: Voiding Method Urinal Urinal Urinal # Voids 2 1 1 # Bowel Movements 1 1 ABP, PAP, CO, CI - Last Documented Arterial Blood Pressure 97/45 - Exam GENERAL EXAM: Alert, pleasant 73-year-old male, on room air, resting in bed, comfortable in no apparent distress. HEAD: Normocephalic. EYES: Normal reaction of pupils, equal size. NOSE: Clear with pink turbinates. THROAT: No erythema or exudates. NECK: No masses, no JVD. CHEST: No chest wall deformity. LUNGS: Equal air entry with no crackles, wheeze, rhonchi or dullness. CVS: S1 and S2 normal with no audible murmur, regular rhythm. ABDOMEN: No hepatosplenomegaly, normal bowel sounds, no guarding or rigidity. SPINE: No scoliosis or deformity SKIN: No rashes CENTRAL NERVOUS SYSTEM: No focal deficits, tone is normal in all 4 extremities. EXTREMITIES: There is no peripheral edema. No clubbing, no cyanosis. Peripheral pulses are intact. - Labs CBC & Chem 7: 11/11/23 06:09 11/12/23 08:47 Labs: Abnormal Lab Results - Last 24 Hours (Table) 11/11/23 11/11/23 11/12/23 Range/Units 16:30 20:16 05:50 Sodium (137-145) mmol/L Potassium (3.5-5.1) mmol/L BUN (9-20) mg/dL Glucose (74-99) mg/dL POC Glucose (mg/dL) 116 H 115 H 218 H (70-110) mg/dL 11/12/23 11/12/23 Range/Units 08:47 11:38 Sodium 136 L (137-145) mmol/L Potassium 3.4 L (3.5-5.1) mmol/L BUN 22 H (9-20) mg/dL Glucose 108 H (74-99) mg/dL POC Glucose (mg/dL) 138 H (70-110) mg/dL Assessment and Plan Assessment: Acute hypoxic respiratory compromise/failure, secondary to Ativan administration, requiring intubation and mechanical ventilation, October 28, 2023. The patient was extubated on 10/30/2023. Bilateral pleural effusions, left more than right, status post thoracentesis of left lung, fluid negative for malignancy, improving now with diuretics Possible MSSA pneumonia/tracheobronchitis based on sputum cultures Systolic heart failure , EF 20% MARK, recovered and the patient has evidence of nephrolithiasis and left hydronephrosis Left renal hydronephrosis with transition point within the distal left ureter, being followed by urology. History of CVA. History of atrial fibrillation. Hypothyroidism. Gastroesophageal reflux disease. History of myocardial infarction. History of hypertension. History of ongoing tobacco use. History of chronic alcohol abuse. Pressure ulcer in the sacrum, DTI Plan: The patient was seen and evaluated Currently stable and on room air Continue the current treatment plan Plan is for [place] possibly today I have personally seen and examined the patient, performed the documentation and the assessment and plan as written. Number of minutes spent on the visit: 10.
[2023-11-12 15:18] VITALS: BP 111/77; PULSE 86; RESP 20; TEMP 98.1
== END 2023-11-12 16:01 | DRG 896 ==
LOC: EC 00:31 → 3SCARD 03:36 → 2SICU 09:48 → 3SCARD 11-06 21:42
PROVIDERS: ADMIT Hospitalist; ATTEND Hospitalist
PROC: 5A1945Z Respiratory Ventilation, 24-96 Consecutive Hours (ICD-10-PCS; principal; 2023-10-28)
PROC: 0BH17EZ Insertion of Endotracheal Airway into Trachea, Via Natural or Artificial Opening (ICD-10-PCS; 2023-10-28)
PROC: 03HY32Z Insertion of Monitoring Device into Upper Artery, Percutaneous Approach (ICD-10-PCS; 2023-10-28)
PROC: 4A133B1 Monitoring of Arterial Pressure, Peripheral, Percutaneous Approach (ICD-10-PCS; 2023-10-28)
PROC: 4A133J1 Monitoring of Arterial Pulse, Peripheral, Percutaneous Approach (ICD-10-PCS; 2023-10-28)
PROC: 02HV33Z Insertion of Infusion Device into Superior Vena Cava, Percutaneous Approach (ICD-10-PCS; 2023-11-05)
PROC: 0W9B3ZZ Drainage of Left Pleural Cavity, Percutaneous Approach (ICD-10-PCS; 2023-11-06)
DX: F10.139 Alcohol abuse with withdrawal, unspecified (principal); G93.41 Metabolic encephalopathy; I50.23 Acute on chronic systolic (congestive) heart failure; J96.01 Acute respiratory failure with hypoxia; I21.A1 Myocardial infarction type 2; J15.211 Pneumonia due to Methicillin susceptible Staphylococcus aureus; N17.9 Acute kidney failure, unspecified; I48.19 Other persistent atrial fibrillation; G93.1 Anoxic brain damage, not elsewhere classified; E87.4 Mixed disorder of acid-base balance; D61.818 Other pancytopenia; J91.8 Pleural effusion in other conditions classified elsewhere; F05 Delirium due to known physiological condition; I42.9 Cardiomyopathy, unspecified; J44.0 Chronic obstructive pulmonary disease with (acute) lower respiratory infection; N13.1 Hydronephrosis with ureteral stricture, not elsewhere classified; L89.310 Pressure ulcer of right buttock, unstageable; L89.322 Pressure ulcer of left buttock, stage 2; L89.151 Pressure ulcer of sacral region, stage 1; R62.7 Adult failure to thrive; K70.30 Alcoholic cirrhosis of liver without ascites; I11.0 Hypertensive heart disease with heart failure; G93.89 Other specified disorders of brain; I08.1 Rheumatic disorders of both mitral and tricuspid valves; E03.9 Hypothyroidism, unspecified; K21.9 Gastro-esophageal reflux disease without esophagitis; Z60.8 Other problems related to social environment; E87.6 Hypokalemia; T42.4X5A Adverse effect of benzodiazepines, initial encounter; T50.2X5A Adverse effect of carbonic-anhydrase inhibitors, benzothiadiazides and other diuretics, initial encounter; N28.89 Other specified disorders of kidney and ureter; E83.42 Hypomagnesemia; I25.10 Atherosclerotic heart disease of native coronary artery without angina pectoris; N28.9 Disorder of kidney and ureter, unspecified; Z86.73 Personal history of transient ischemic attack (TIA), and cerebral infarction without residual deficits; Z91.148 Patient's other noncompliance with medication regimen for other reason; Z87.891 Personal history of nicotine dependence; Z78.1 Physical restraint status; I25.2 Old myocardial infarction; Z79.890 Hormone replacement therapy; Z79.01 Long term (current) use of anticoagulants; Z79.899 Other long term (current) drug therapy; Z87.442 Personal history of urinary calculi; Z91.199 Patient's noncompliance with other medical treatment and regimen due to unspecified reason
CPT/HCPCS: 36415; 36600; 70450; 71045; 71275; 74177; 74178; 74400; 76604; 76770; 80048; 80053; 80320; 81001; 82140; 82550; 82607; 82746; 82805; 82945; 83605; 83615; 83735; 83880; 84100; 84132; 84145; 84157; 84439; 84443; 84484; 85025; 85027; 85610; 85730; 87070; 87077; 87186; 87205; 88108; 88305; 89050; 93005; 93306; 94002; 94003; 94640; 94760; 95822; 96361; 96365; 96366; 96375; 96376; 99291

== ENCOUNTER 2023-11-20 02:49 | Emergency (ER) | payer MEDICARE ==
[2023-11-20] MEDS: SODIUM CHLORIDE 0.9% 500 ML 500 ML IV STA (03:03)
[2023-11-20] MEDS: METOPROLOL TARTRATE 5 MG/5 ML VIAL IVP STA (03:04)
[2023-11-20 03:16] LABS: Anisocytosis Slight; Basophils % (A) 1 %; Eosinophils # (A) 0.1 k/uL (0-0.7); Eosinophils % (A) 2 %; HCT 34.3 % (39.0-53.0); HGB 11.2 gm/dL (13.0-17.5); Lymphocytes # (A) 1.2 k/uL (1.0-4.8); Lymphocytes % (A) 27 %; MCH 29.5 pg (25.0-35.0); MCHC 32.6 g/dL (31.0-37.0); MCV 90.6 fL (80.0-100.0); Mean Platelet Volume 9.4; Monocytes # (A) 0.3 k/uL (0-1.0); Monocytes % (A) 8 %; Neutrophils # (A) 2.7 k/uL (1.3-7.7); Neutrophils % (A) 62 %; Platelet Count 185 k/uL (150-450); RBC 3.79 m/uL (4.30-5.90); RDW 16.2 % (11.5-15.5); WBC 4.3 k/uL (3.8-10.6)
--- NOTE | 2023-11-20 03:25 | ED ---
General Adult HPI - General Chief complaint: Shortness of Breath Stated complaint: SOB Time Seen by Provider: 11/20/23 02:54 Source: EMS Mode of arrival: EMS - History of Present Illness Initial comments: Kp is a 73-year-old gentleman with extensive past medical history including a prolonged recent admission for respiratory failure during which she was found to have an ejection fraction of 20%. Patient was in the ICU for a brief period of time due to delirium requiring intubation. Patient recovered well and was discharged to correction. Patient has been doing well at the correction tonight they noted that he seemed to be breathing hard when they checked his vit als his heart rate was in the 140s and EMS was called for transport. Patient has a history of A-fib and EMS found that the patient was in A-fib with RVR. Patient had no complaints of chest pain or worsening shortness of breath but reported that his back hurt from being on the hospital bed. - Related Data Previous Rx's Medication Instructions Recorded Apixaban [Eliquis] 5 mg PO BID #60 tab 04/16/18 Folic Acid 1 mg PO DAILY tab 11/12/23 Furosemide [Lasix] 40 mg PO DAILY tab 11/12/23 Ipratropium-Albuterol Nebulize 3 ml INHALATION RT-QID each 11/12/23 [Duoneb 0.5 mg-3 mg/3 ml Soln] Levothyroxine Sodium [Synthroid] 200 mcg PO DAILY@0630 tab 11/12/23 Magnesium Oxide [Magox 400] 400 mg PO AC-BRKFST #30 tablet 11/12/23 Metoprolol Tartrate [Lopressor] 12.5 mg PO BID tab 11/12/23 Midodrine [ProAmatine] 5 mg PO AC-TID tab 11/12/23 Multivitamins, Thera [Multivitamin 1 each PO DAILY tab 11/12/23 (formulary)] Nicotine 14Mg/24Hr Patch [Habitrol] 1 patch TRANSDERM DAILY patch 11/12/23 Nystatin 100,000 Unit/gm Oint 1 applic TOPICAL BID each 11/12/23 [Mycostatin Oint] Pantoprazole [Protonix] 40 mg PO AC-BRKFST tab 11/12/23 Potassium Chloride [Klor-Con 20 20 meq PO AC-BID #60 packet 09/11/24 Packets] QUEtiapine [SEROquel] 25 mg PO TID tab 11/12/23 Thiamine [Vitamin B-1] 100 mg PO DAILY #30 tablet 11/12/23 Allergies Allergy/AdvReac Type Severity Reaction Status Date / Time No Known Allergies Allergy Verified 11/20/23 02:54 Review of Systems ROS Statement: Those systems with pertinent positive or pertinent negative responses have been documented in the HPI. ROS Other: All systems not noted in ROS Statement are negative. Past Medical History Past Medical History: Atrial Fibrillation, CVA/TIA, GERD/Reflux, Hypertension, Myocardial Infarction (RI) Additional Past Medical History / Comment(s): CVA-2006 no residual Last Myocardial Infarction Date:: History of Any Multi-Drug Resistant Organisms: None Reported Past Surgical History: Heart Catheterization Past Anesthesia/Blood Transfusion Reactions: No Reported Reaction Past Psychological History: No Psychological Hx Reported Smoking Status: Former smoker Past Alcohol Use History: Daily Past Drug Use History: None Reported - Past Family History Mother Family Medical History: No Reported History Father Family Medical History: Cancer General Exam - General Exam Comments Initial Comments: Physical Exam GENERAL: Chronically ill appearing HENT: Normocephalic, Atraumatic. EYES: PERRL, EOMI PULMONARY: Decreased breath sounds at bases CARDIOVASCULAR: Tachycardic, irregular ABDOMEN: Non-distended SKIN: pale : Deferred NEUROLOGIC: Alert and oriented to self, poor historian MUSCULOSKELETAL: Moving all extremities, reports neuropathic pain in legs PSYCHIATRIC: No SI/HI Course Vital Signs 11/20/23 11/20/23 11/20/23 02:50 02:55 03:15 Temperature 97.7 F Pulse Rate 124 H 100 Respiratory 20 20 20 Rate Blood Pressure 110/87 125/53 O2 Sat by Pulse 98 97 Oximetry 11/20/23 11/20/23 11/20/23 03:45 04:00 05:09 Temperature 98.9 F Pulse Rate 98 106 H 110 H Respiratory 20 20 18 Rate Blood Pressure 101/78 113/89 106/70 O2 Sat by Pulse 99 99 99 Oximetry EKG Findings - EKG Comments: EKG Findings:: EG interpreted by me, EKG obtained due to tachycardia and shortness of breath EKG obtained at 2:52 AM, rate is 119 rhythm is a narrow complex irregularly irregular tachycardia with no P wave before the QRS consistent with an atrial fibrillation with RVR. There are no acute ST elevations or depressions there is no evidence of acute ischemia or infarction. When reviewed previous EKGs A-fib is not new. Medical Decision Making - Medical Decision Making Was pt. sent in by a medical professional or institution (, RE[facility], ROLLING DOWN MACHINE OPERATOR, urgent care, hospital, or correction...) When possible be specific @ -Yes, patient sent from correction Did you speak to anyone other than the patient for history (EMS, parent, family, police, friend...)? What history was obtained from this source @ -MS Did you review nursing and triage notes (agree or disagree)? Why? @ -I reviewed and agree with nursing and triage notes Were old charts reviewed (outside hosp., previous admission, EMS record, old EKG, old radiological studies, urgent care reports/EKG's, correction records)? Report findings @ -Previous hospitalization notes labs and echocardiogram were reviewed Differential Diagnosis (chest pain, altered mental status, abdominal pain women, abdominal pain men, vaginal bleeding, weakness, fever, dyspnea, syncope, headache, dizziness, GI bleed, back pain, seizure, CVA, palpatations, mental health)? @ -Differential Dyspnea: Coronary syndrome, arrhythmia, tamponade, asthma, COPD, pulmonary embolism, pneumonia, pneumothorax, pulmonary effusion, anaphylaxis, diabetic ketoacidosis, flailed chest, pulmonary contusion, diaphragmatic rupture, anemia, neuromuscular, this is not meant to be an all-inclusive list. EKG interpreted by me (3pts min.). @ -As above X-rays interpreted by me (1pt min.). @ -Bilateral pleural effusions left greater than right CT interpreted by me (1pt min.). @ -None done U/S interpreted by me (1pt. min.). @ -None done What testing was considered but not performed or refused? (CT, X-rays, U/S, labs)? Why? @ -None What meds were considered but not given or refused? Why? @ -None Did you discuss the management of the patient with other professionals (professionals i.e. REVA Riggs, ROLLING DOWN MACHINE OPERATOR, lab, RT, psych nurse, oncology social worker, qa software tester, teacher, canine enforcement officer, machine adjuster leader case trim)? Give summary @ -No Was smoking cessation discussed for >3mins.? @ -No Was critical care preformed (if so, how long)? @ -No Were there social determinants of health that impacted care today? How? (Homelessness, low income, unemployed, alcoholism, drug addiction, transportatio n, low edu. Level, literacy, decrease access to med. care, fci, rehab)? @ -No Was there de-escalation of care discussed even if they declined (Discuss DNR or withdrawal of care, Hospice)? DNR status @ -No What co-morbidities impacted this encounter? (DM, HTN, Smoking, COPD, CAD, Cancer, CVA, ARF, Chemo, Hep., AIDS, mental health diagnosis, sleep apnea, morbid obesity)? @ -A-fib, heart failure Was patient admitted / discharged? Hospital course, mention meds given and route, prescriptions, significant lab abnormalities, going to OR and other pertinent info. @ -Discharged Seen and evaluated upon arrival patient was noted to be in A-fib with RVR though he had no acute complaints Labs and imaging were ordered Patient was treated with 1 IV dose of metoprolol and upon reevaluation his heart rate was in the 80s his only complaint at that time was neuropathic pain in his feet he had no shortness of breath or chest pain Labs are at baseline for the patient and patient is stable for discharge back to correction. Undiagnosed new problem with uncertain prognosis? @ -No Drug Therapy requiring intensive monitoring for toxicity (Heparin, Nitro, Insulin, Cardizem)? @ -No Were any procedures done? @ -No Diagnosis/symptom? @ -RVR Acute, or Chronic, or Acute on Chronic? @ -Acute Uncomplicated (without systemic symptoms) or Complicated (systemic symptoms)? @ -Default Side effects of treatment? @ -No Exacerbation, Progression, or Severe Exacerbation? @ -No Poses a threat to life or bodily function? How? (Chest pain, [place], RI, pneumonia, PE, COPD, DKA, ARF, appy, cholecystitis, CVA, Diverticulitis, Homicidal, Suicidal, threat to staff... and all critical care pts) @ -No - Lab Data Result diagrams: 11/20/23 02:57 11/20/23 02:57 Lab Results 11/20/23 11/20/23 11/20/23 Range/Units 02:57 02:57 02:57 WBC 4.3 (3.8-10.6) k/uL RBC 3.79 L (4.30-5.90) m/uL Hgb 11.2 L (13.0-17.5) gm/dL Hct 34.3 L (39.0-53.0) % MCV 90.6 (80.0-100.0) fL MCH 29.5 (25.0-35.0) pg MCHC 32.6 (31.0-37.0) g/dL RDW 16.2 H (11.5-15.5) % Plt Count 185 (150-450) k/uL MPV 9.4 Neutrophils % 62 % Lymphocytes % 27 % Monocytes % 8 % Eosinophils % 2 % Basophils % 1 % Neutrophils # 2.7 (1.3-7.7) k/uL Lymphocytes # 1.2 (1.0-4.8) k/uL Monocytes # 0.3 (0-1.0) k/uL Eosinophils # 0.1 (0-0.7) k/uL Basophils # 0.0 (0-0.2) k/uL Anisocytosis Slight PT 13.1 H (10.0-12.5) sec INR 1.2 H (<1.2) APTT 26.2 (22.0-30.0) sec Sodium 135 L (137-145) mmol/L Potassium 4.2 (3.5-5.1) mmol/L Chloride 104 (98-107) mmol/L Carbon Dioxide 18 L (22-30) mmol/L Anion Gap 13 mmol/L BUN 28 H (9-20) mg/dL Creatinine 1.07 (0.66-1.25) mg/dL Est GFR (CKD-EPI)AfAm 81 (>60 ml/min/1.73 sqM) Est GFR (CKD-EPI)NonAf 70 (>60 ml/min/1.73 sqM) Glucose 101 H (74-99) mg/dL Calcium 9.3 (8.4-10.2) mg/dL Magnesium 1.6 (1.6-2.3) mg/dL Total Bilirubin 1.1 (0.2-1.3) mg/dL AST 24 (17-59) U/L ALT 16 (4-49) U/L Alkaline Phosphatase 89 (38-126) U/L Troponin I (0.000-0.034) ng/mL Total Protein 6.7 (6.3-8.2) g/dL Albumin 3.6 (3.5-5.0) g/dL TSH 8.140 H (0.465-4.680) mIU/L 11/20/23 Range/Units 02:57 WBC (3.8-10.6) k/uL RBC (4.30-5.90) m/uL Hgb (13.0-17.5) gm/dL Hct (39.0-53.0) % MCV (80.0-100.0) fL MCH (25.0-35.0) pg MCHC (31.0-37.0) g/dL RDW (11.5-15.5) % Plt Count (150-450) k/uL MPV Neutrophils % % Lymphocytes % % Monocytes % % Eosinophils % % Basophils % % Neutrophils # (1.3-7.7) k/uL Lymphocytes # (1.0-4.8) k/uL Monocytes # (0-1.0) k/uL Eosinophils # (0-0.7) k/uL Basophils # (0-0.2) k/uL Anisocytosis PT (10.0-12.5) sec INR (<1.2) APTT (22.0-30.0) sec Sodium (137-145) mmol/L Potassium (3.5-5.1) mmol/L Chloride (98-107) mmol/L Carbon Dioxide (22-30) mmol/L Anion Gap mmol/L BUN (9-20) mg/dL Creatinine (0.66-1.25) mg/dL Est GFR (CKD-EPI)AfAm (>60 ml/min/1.73 sqM) Est GFR (CKD-EPI)NonAf (>60 ml/min/1.73 sqM) Glucose (74-99) mg/dL Calcium (8.4-10.2) mg/dL Magnesium (1.6-2.3) mg/dL Total Bilirubin (0.2-1.3) mg/dL AST (17-59) U/L ALT (4-49) U/L Alkaline Phosphatase (38-126) U/L Troponin I 0.027 (0.000-0.034) ng/mL Total Protein (6.3-8.2) g/dL Albumin (3.5-5.0) g/dL TSH (0.465-4.680) mIU/L Disposition Clinical Impression: Atrial fibrillation with RVR, Systolic congestive heart failure Disposition: HOME SELF-CARE Condition: Stable Is patient prescribed a controlled substance at d/c from ED?: No Referrals: None,Stated [Primary Care Provider] - 1-2 days
[2023-11-20 03:45] LABS: ALT 16 U/L (4-49); AST 24 U/L (17-59); African American GFR (CKD) 81 (>60 ml/min/1.73 sqM); Albumin 3.6 g/dL (3.5-5.0); Alkaline Phosphatase 89 U/L (38-126); Anion Gap 13 mmol/L; Blood Urea Nitrogen 28 mg/dL (9-20); Calcium 9.3 mg/dL (8.4-10.2); Carbon Dioxide 18 mmol/L (22-30); Chloride 104 mmol/L (98-107); Glucose 101 mg/dL (74-99); INR 1.2 (<1.2); Magnesium 1.6 mg/dL (1.6-2.3); Non-African American GFR(CKD) 70 (>60 ml/min/1.73 sqM); Partial Thromboplastin Time 26.2 sec (22.0-30.0); Potassium 4.2 mmol/L (3.5-5.1); Prothrombin Time 13.1 sec (10.0-12.5); Sodium 135 mmol/L (137-145); Total Bilirubin 1.1 mg/dL (0.2-1.3); Total Protein 6.7 g/dL (6.3-8.2)
--- NOTE | 2023-11-20 04:03 | XR ---
EXAM: XR Chest, 2 Views CLINICAL HISTORY: ITS.REASON XR Reason: dysrhythmia TECHNIQUE: Frontal and lateral views of the chest. COMPARISON: 11/06/23 FINDINGS: Lungs: Left basilar airspace disease. Right lung appears clear. No consolidation. Pleural space: Bilateral pleural effusions, left greater than right. Heart: Stable heart size. Bones/joints: No acute fracture. No dislocation. IMPRESSION: 1. Left basilar airspace disease. This may represent atelectasis or pneumonia. 2. Bilateral pleural effusions, left greater than right.
[2023-11-20] MEDS: fentaNYL (PF) 50 MCG/ML 2 ML AMP IVP ONE (04:26)
[2023-11-20 05:10] VITALS: RESP 18; TEMP 98.9
[2023-11-20 06:22] VITALS: BP 112/84; PULSE 108
== END 2023-11-20 06:05 | disposition home or self-care (01) ==
LOC: EC 02:49
CPT/HCPCS: 36415; 71046; 80053; 83735; 84439; 84443; 84484; 85025; 85610; 85730; 93005; 96374; 96375; 99285

== ENCOUNTER 2023-11-20 10:28 | Inpatient (IN) | payer MEDICARE ==
[2023-11-20] MEDS: METOPROLOL TARTRATE 5 MG/5 ML VIAL IVP STA ×2 (10:53→13:15)
[2023-11-20] MEDS: ASPIRIN 81 MG PO STA (10:53)
[2023-11-20 11:13] LABS: Basophils % (A) 0 %; Eosinophils # (A) 0.1 k/uL (0-0.7); Eosinophils % (A) 2 %; HCT 35.7 % (39.0-53.0); HGB 11.4 gm/dL (13.0-17.5); Hypochromasia Slight; Lymphocytes # (A) 1.3 k/uL (1.0-4.8); Lymphocytes % (A) 26 %; MCHC 31.9 g/dL (31.0-37.0); MCV 91.1 fL (80.0-100.0); Mean Platelet Volume 8.4; Monocytes # (A) 0.4 k/uL (0-1.0); Monocytes % (A) 8 %; Neutrophils % (A) 61 %; Platelet Count 247 k/uL (150-450); RBC 3.92 m/uL (4.30-5.90); WBC 4.8 k/uL (3.8-10.6)
[2023-11-20 11:37] LABS: ALT 16 U/L (4-49); AST 28 U/L (17-59); African American GFR (CKD) 68 (>60 ml/min/1.73 sqM); Albumin 3.6 g/dL (3.5-5.0); Alcohol <10 mg/dL; Alkaline Phosphatase 83 U/L (38-126); Anion Gap 12 mmol/L; Blood Urea Nitrogen 31 mg/dL (9-20); Calcium 9.5 mg/dL (8.4-10.2); Carbon Dioxide 20 mmol/L (22-30); Chloride 104 mmol/L (98-107); Glucose 85 mg/dL (74-99); Magnesium 1.7 mg/dL (1.6-2.3); Non-African American GFR(CKD) 59 (>60 ml/min/1.73 sqM); Potassium 4.7 mmol/L (3.5-5.1); Sodium 136 mmol/L (137-145); Total Bilirubin 1.5 mg/dL (0.2-1.3); Total Protein 6.8 g/dL (6.3-8.2)
[2023-11-20 11:45] LABS: NT-Pro-B-Type Natriuretic Pept 16900 pg/mL
[2023-11-20 11:46] LABS: INR 1.3 (<1.2); Partial Thromboplastin Time 26.9 sec (22.0-30.0); Prothrombin Time 13.4 sec (10.0-12.5)
--- NOTE | 2023-11-20 11:58 | XR ---
EXAMINATION TYPE: XR chest 2V DATE OF EXAM: 11/20/2023 11:27 AM CLINICAL INDICATION: Male, 73 years old with history of difficulty breathing; COMPARISON: Chest radiographs from 11/20/2023 TECHNIQUE: XR chest 2V Frontal view of the chest. FINDINGS: Lungs/Pleura: No evidence of focal consolidation or pneumothorax. Blunting of the costophrenic angles is present. Pulmonary vascularity: Unremarkable. Heart/mediastinum: Cardiomediastinal silhouette is enlarged. Musculoskeletal: No acute osseous pathology. IMPRESSION: Edema with bilateral pleural effusions.. [facility], , 11/20/2023 11:55 AM
[2023-11-20] MEDS ORDERED: NALOXONE 0.4 MG/ML 1 ML VIAL IV PRN (12:24)
--- NOTE | 2023-11-20 12:24 | ED ---
General Adult HPI - General Chief complaint: Chest Pain Stated complaint: dyspnea Time Seen by Provider: 11/20/23 10:31 Source: patient, RN notes reviewed, old records reviewed Mode of arrival: EMS Limitations: no limitations - History of Present Illness Initial comments: Patient is a 73-year-old male who presents emergency department complaining of shortness of breath that occurred this morning. Patient was already seen at our facility and evaluated. Was found to be in A-fib with RVR at that time and with bilateral pleural effusions. Eventually patient was discharged home as he was stable. Presents back for shortness of breath. Denies any chest pain or lower back pain today currently but states it did occur prior to earlier evaluation. He was in A-fib with RVR again. Presents for further evaluation at this time. Denies any new acute complaints. Unknown if he took his morning oral medications. - Related Data Previous Rx's Medication Instructions Recorded Apixaban [Eliquis] 5 mg PO BID #60 tab 04/16/18 Folic Acid 1 mg PO DAILY tab 11/12/23 Furosemide [Lasix] 40 mg PO DAILY tab 11/12/23 Ipratropium-Albuterol Nebulize 3 ml INHALATION RT-QID each 11/12/23 [Duoneb 0.5 mg-3 mg/3 ml Soln] Levothyroxine Sodium [Synthroid] 200 mcg PO DAILY@0630 tab 11/12/23 Magnesium Oxide [Magox 400] 400 mg PO AC-BRKFST #30 tablet 11/12/23 Metoprolol Tartrate [Lopressor] 12.5 mg PO BID tab 11/12/23 Midodrine [ProAmatine] 5 mg PO AC-TID tab 11/12/23 Multivitamins, Thera [Multivitamin 1 each PO DAILY tab 11/12/23 (formulary)] Nicotine 14Mg/24Hr Patch [Habitrol] 1 patch TRANSDERM DAILY patch 11/12/23 Nystatin 100,000 Unit/gm Oint 1 applic TOPICAL BID each 11/12/23 [Mycostatin Oint] Pantoprazole [Protonix] 40 mg PO AC-BRKFST tab 11/12/23 Potassium Chloride [Klor-Con 20 20 meq PO AC-BID #60 packet 11/12/23 Packets] QUEtiapine [SEROquel] 25 mg PO TID tab 11/12/23 Thiamine [Vitamin B-1] 100 mg PO DAILY #30 tablet 11/12/23 Allergies Allergy/AdvReac Type Severity Reaction Status Date / Time No Known Allergies Allergy Verified 11/20/23 10:34 Review of Systems ROS Statement: Those systems with pertinent positive or pertinent negative responses have been documented in the HPI. Review of Systems: CONST: Denies fever EYES: Denies blurry vision ENT: Denies nasal congestion C/V: Denies chest pain RESP: Denies shortness of breath GI: Denies abdominal pain : Denies dysuria SKIN: Denies rash. MSK: Denies joint pain. NEURO: Denies headache ROS Other: All systems not noted in ROS Statement are negative. Past Medical History Past Medical History: Atrial Fibrillation, CVA/TIA, GERD/Reflux, Hypertension, Myocardial Infarction (OR) Additional Past Medical History / Comment(s): CVA-2006 no residual Last Myocardial Infarction Date:: History of Any Multi-Drug Resistant Organisms: None Reported Past Surgical History: Heart Catheterization Additional Past Surgical History / Comment(s): Thoracentesis 11/06/23 Past Anesthesia/Blood Transfusion Reactions: No Reported Reaction Past Psychological History: No Psychological Hx Reported Smoking Status: Former smoker Past Alcohol Use History: Daily Past Drug Use History: None Reported - Past Family History Mother Family Medical History: No Reported History Father Family Medical History: Cancer General Exam - General Exam Comments Initial Comments: General: Appears in no acute distress. HEAD: Normal with no signs of head trauma. EYES: PERRLA, EOMI, conjunctiva normal, no discharge. ENT: Hearing grossly intact, normal oropharynx. RESPIRATORY: Clear breath sounds bilaterally. No wheezes, rales, or rhonchi. C/V: Irregular rate and rhythm. S1 and S2 auscultated, no edema, peripheral pu lses 2+ and intact throughout ABD: Abd is soft, nontender, nondistended EXT: Normal range of motion, no obvious deformity SKIN: No rashes or lesions observed on exposed skin. NEURO: A and O x 4. No focal deficits. Limitations: no limitations Course Vital Signs 11/20/23 11/20/23 11/20/23 10:31 10:35 10:52 Pulse Rate 150 H 151 H Pulse Rate [ 140 H [employer] ] Respiratory 18 18 Rate Blood Pressure 106/96 115/78 O2 Sat by Pulse 99 100 Oximetry 11/20/23 11/20/23 10:58 11:18 Pulse Rate 138 H 128 H Pulse Rate [ [employer] ] Respiratory 18 18 Rate Blood Pressure 109/93 100/50 O2 Sat by Pulse 100 98 Oximetry Medical Decision Making - Medical Decision Making Was pt. sent in by a medical professional or institution (, REVA, SEWER AND DRAIN TECHNICIAN, urgent care, hospital, or skilled nursing...) When possible be specific @ -Sent in by nursing facility for reevaluation. Patient currently has no acute complaints other than being in A-fib with RVR Did you speak to anyone other than the patient for history (EMS, parent, family, police, friend...)? What history was obtained from this source @ -No Did you review nursing and triage notes (agree or disagree)? Why? @ -I reviewed and agree with nursing and triage notes Were old charts reviewed (outside hosp., previous admission, EMS record, old EKG, old radiological studies, urgent care reports/EKG's, skilled nursing records)? Report findings @ -Chart reviewed from earlier today with results which showed patient was in A-fib with RVR but no other obvious acute findings. Small bilateral pleural effusions. Differential Diagnosis (chest pain, altered mental status, abdominal pain women, abdominal pain men, vaginal bleeding, weakness, fever, dyspnea, syncope, headache, dizziness, GI bleed, back pain, seizure, CVA, palpatations, mental health, musculoskeletal)? @ -A-fib with RVR, electrolyte abnormality, pleural effusion. This list is not all inclusive. EKG interpreted by me (3pts min.). @ -As above X-rays interpreted by me (1pt min.). @ -Chest x-ray reveals bilateral pleural effusions CT interpreted by me (1pt min.). @ -None done U/S interpreted by me (1pt. min.). @ -None done What testing was considered but not performed or refused? (CT, X-rays, U/S, labs)? Why? @ -None What meds were considered but not given or refused? Why? @ -None Did you discuss the management of the patient with other professionals (professionals i.e. , REVA, SEWER AND DRAIN TECHNICIAN, lab, RT, psych nurse, social work instructor, repair armature winder, teacher, regulatory compliance officer, case folder)? Give summary @ -Discussed with Dr. Bustillo who accepted the admission. Was smoking cessation discussed for >3mins.? @ -No Was critical care preformed (if so, how long)? @ -No Were there social determinants of health that impacted care today? How? (Homelessness, low income, unemployed, alcoholism, drug addiction, transportation, low edu. Level, literacy, decrease access to med. care, long-term, rehab)? @ -No Was there de-escalation of care discussed even if they declined (Discuss DNR or withdrawal of care, Hospice)? DNR status @ -No What co-morbidities impacted this encounter? (DM, HTN, Smoking, COPD, CAD, Cancer, CVA, ARF, Chemo, Hep., AIDS, mental health diagnosis, sleep apnea, morbid obesity)? @ -Atrial fibrillation Was patient admitted / discharged? Hospital course, mention meds given and route, prescriptions, significant lab abnormalities, going to OR and other pertinent info. @ -Based on the patient's presentation and physical exam, presents emergency emergency department after retransferred by nursing facility for further evaluation. Appears to be back in A-fib with RVR but unknown if he was actually given his normal morning metoprolol dose or not. Has no other acute complaints at this time. Will repeat some workup. Patient was in agreement this plan. Vitals other than the A-fib with RVR within acceptable limits. EKG shows A-fib with RVR with no evidence of acute ischemic process. Chest x- ray shows small bilateral pleural effusions. Labs ultimately relatively unremarkable. BNP is elevated but that could be secondary to the pleural ef fusions or the A-fib with RVR. Troponin is flat from earlier, and indeterminate. Viral swabs negative. Patient was given IV metoprolol followed by a loading dose of his normal oral metoprolol. Heart rate did improve mostly ranging from 100-115. Will continue to monitor. I discussed with the patient and he will be admitted to observation at this time. Cardiology will be consulted for the A-fib which is chronic for the patient. We will reorder his normal medications. He was in agreement this plan. I spoke with Dr. Bustillo who accepted the admission. Undiagnosed new problem with uncertain prognosis? @ -No Drug Therapy requiring intensive monitoring for toxicity (Heparin, Nitro, Insulin, Cardizem)? @ -No Were any procedures done? @ -No Diagnosis/symptom? @ -A-fib with RVR Acute, or Chronic, or Acute on Chronic? @ -Acute on chronic Uncomplicated (without systemic symptoms) or Complicated (systemic symptoms)? @ -complicated Side effects of treatment? @ -No Exacerbation, Progression, or Severe Exacerbation? @ -No Poses a threat to life or bodily function? How? (Chest pain, USA, OR, pneumonia, PE, COPD, DKA, ARF, appy, cholecystitis, CVA, Diverticulitis, Homicidal, Suicidal, threat to staff... and all critical care pts) @ -Potentially yes, if uncontrolled - Lab Data Result diagrams: 11/20/23 10:50 11/20/23 10:50 Lab Results 11/20/23 11/20/23 11/20/23 Range/Units 10:50 10:50 10:50 WBC 4.8 (3.8-10.6) k/uL RBC 3.92 L (4.30-5.90) m/uL Hgb 11.4 L (13.0-17.5) gm/dL Hct 35.7 L (39.0-53.0) % MCV 91.1 (80.0-100.0) fL MCH 29.0 (25.0-35.0) pg MCHC 31.9 (31.0-37.0) g/dL RDW 16.0 H (11.5-15.5) % Plt Count 247 (150-450) k/uL MPV 8.4 Neutrophils % 61 % Lymphocytes % 26 % Monocytes % 8 % Eosinophils % 2 % Basophils % 0 % Neutrophils # 3.0 (1.3-7.7) k/uL Lymphocytes # 1.3 (1.0-4.8) k/uL Monocytes # 0.4 (0-1.0) k/uL Eosinophils # 0.1 (0-0.7) k/uL Basophils # 0.0 (0-0.2) k/uL Hypochromasia Slight PT 13.4 H (10.0-12.5) sec INR 1.3 H (<1.2) APTT 26.9 (22.0-30.0) sec Sodium 136 L (137-145) mmol/L Potassium 4.7 (3.5-5.1) mmol/L Chloride 104 (98-107) mmol/L Carbon Dioxide 20 L (22-30) mmol/L Anion Gap 12 mmol/L BUN 31 H (9-20) mg/dL Creatinine 1.24 (0.66-1.25) mg/dL Est GFR (CKD-EPI)AfAm 68 (>60 ml/min/1.73 sqM) Est GFR (CKD-EPI)NonAf 59 (>60 ml/min/1.73 sqM) Glucose 85 (74-99) mg/dL Calcium 9.5 (8.4-10.2) mg/dL Magnesium 1.7 (1.6-2.3) mg/dL Total Bilirubin 1.5 H (0.2-1.3) mg/dL AST 28 (17-59) U/L ALT 16 (4-49) U/L Alkaline Phosphatase 83 (38-126) U/L Troponin I (0.000-0.034) ng/mL NT-Pro-B Natriuret Pep 07753 pg/mL Total Protein 6.8 (6.3-8.2) g/dL Albumin 3.6 (3.5-5.0) g/dL Serum Alcohol <10 mg/dL Influenza Type A (PCR) (Not Detectd) Influenza Type B (PCR) (Not Detectd) RSV (PCR) (Not Detectd) SARS-CoV-2 (PCR) (Not Detectd) 11/20/23 11/20/23 Range/Units 10:50 10:50 WBC (3.8-10.6) k/uL RBC (4.30-5.90) m/uL Hgb (13.0-17.5) gm/dL Hct (39.0-53.0) % MCV (80.0-100.0) fL MCH (25.0-35.0) pg MCHC (31.0-37.0) g/dL RDW (11.5-15.5) % Plt Count (150-450) k/uL MPV Neutrophils % % Lymphocytes % % Monocytes % % Eosinophils % % Basophils % % Neutrophils # (1.3-7.7) k/uL Lymphocytes # (1.0-4.8) k/uL Monocytes # (0-1.0) k/uL Eosinophils # (0-0.7) k/uL Basophils # (0-0.2) k/uL Hypochromasia PT (10.0-12.5) sec INR (<1.2) APTT (22.0-30.0) sec Sodium (137-145) mmol/L Potassium (3.5-5.1) mmol/L Chloride (98-107) mmol/L Carbon Dioxide (22-30) mmol/L Anion Gap mmol/L BUN (9-20) mg/dL Creatinine (0.66-1.25) mg/dL Est GFR (CKD-EPI)AfAm (>60 ml/min/1.73 sqM) Est GFR (CKD-EPI)NonAf (>60 ml/min/1.73 sqM) Glucose (74-99) mg/dL Calcium (8.4-10.2) mg/dL Magnesium (1.6-2.3) mg/dL Total Bilirubin (0.2-1.3) mg/dL AST (17-59) U/L ALT (4-49) U/L Alkaline Phosphatase (38-126) U/L Troponin I 0.026 (0.000-0.034) ng/mL NT-Pro-B Natriuret Pep pg/mL Total Protein (6.3-8.2) g/dL Albumin (3.5-5.0) g/dL Serum Alcohol mg/dL Influenza Type A (PCR) Not Detected (Not Detectd) Influenza Type B (PCR) Not Detected (Not Detectd) RSV (PCR) Not Detected (Not Detectd) SARS-CoV-2 (PCR) Not Detected (Not Detectd) - EKG Data -: EKG Interpreted by Me EKG Comments: 12-lead Electrocardiogram Interpretation Note EKG was reviewed and interpreted by myself. 12-lead ECG performed at 1034 is interpreted by me as revealing atrial fibrillation with RVR at a rate of 130 beats per minute. [place] is normal. QRS duration is 96 ms, QTc is 410 4 ms.. There were no ST or T wave abnormalities to suggest myocardial ischemia or injury. R wave progression across the precordium was satisfactory. By my interpretation this EKG is non-diagnostic for acute ischemia. Disposition Clinical Impression: Atrial fibrillation with RVR, Pleural effusion Disposition: ADMITTED IP TO THIS HOSP Condition: Stable Referrals: Sam Bustillo MD [Primary Care Provider] - 1-2 days Time of Disposition: 12:20
[2023-11-20] MEDS: METOPROLOL TARTRATE 12.5 MG TAB PO STA (12:36)
[2023-11-20] MEDS: MIDODRINE 5 MG TAB PO STA (12:43)
[2023-11-20 14:08] LABS: Appearance,Urine Cloudy (Clear); Bacteria,Urine Rare /hpf; Bilirubin,Urine Negative (Negative); Blood,Urine Large (Negative); Color,Urine Yellow; Glucose,Urine (UA) Negative (Negative); Hyaline Casts,Urine 7 /lpf (0-2); Ketones,Urine Negative (Negative); Leukocyte Esterase,Urine Negative (Negative); Mucus,Urine Rare /hpf; Nitrite,Urine Negative (Negative); Protein,Urine 1+ (Negative); RBC,Urine >182 /hpf (0-5); Specific Gravity,Urine 1.023 (1.001-1.035); Squamous Epithelial Cell,Urine <1 /hpf (0-4); WBC,Urine 8 /hpf (0-5)
[2023-11-20] MEDS: ONDANSETRON 4 MG/2 ML VIAL IVP PRN (14:09)
[2023-11-20] MEDS: MORPHINE SULFATE 4 MG/ML SYRINGE IVP STA (14:10)
[2023-11-20] MEDS ORDERED: bisacodyL 10 MG SUPP RECTAL PRN (14:24)
[2023-11-20] MEDS: IPRATROPIUM-ALBUTEROL 3 ML NEB INHALATION SCH (15:06)
--- NOTE | 2023-11-20 15:20 | CT ---
EXAMINATION TYPE: CT brain wo con DATE OF EXAM: 11/20/2023 COMPARISON: None HISTORY: 73-year-old male intermittent confusion, AMS. TECHNIQUE: Examination was done in axial plane without intravenous contrast. Coronal and sagittal r econstructions performed. CT DLP: 1168.4 mGycm Automated exposure control for dose reduction was used. FINDINGS: There is no evidence of acute intracranial hemorrhage, acute ischemic changes, mass, mass-effect, or extra-axial fluid collection. There is no effacement of cerebral sulci or basal subarachnoid cister ns. There is no hydrocephalus. There is no midline shift. [place]-white matter distinction is preserv ed. Moderate cerebral cortical volume loss. Moderate patchy white matter hypodensities in both cerebral h emispheres. Old cortical infarct lateral left frontal lobe and right occipital lobe. Old white matter infarcts subcortical biparietal lobes. Benign basal ganglionic calcifications on both sides. Atheros clerotic calcifications in the carotid siphons. Scattered mild mucosal thickening maxillary sinuses and ethmoid air cells. Partial opacification scattered throughout the mastoid air cells. Orbits and globes appear intact. Rightward nasal septal deviation. Partially visualized periodontal d isease. IMPRESSION: 1. Moderate generalized atrophy. 2. Scattered small areas of old cortical infarcts lateral left frontal lobe, right occipital lobe, an d biparietal subcortical white matter. 3. No acute intracranial abnormality seen. 3. Scattered mild paranasal sinus disease. [facility], , 11/20/2023 3:17 PM
[2023-11-20] MEDS: predniSONE 10 MG TAB PO SCH (15:25)
[2023-11-20] MEDS: METOPROLOL TARTRATE 12.5 MG TAB PO SCH (16:00)
[2023-11-20] MEDS: POTASSIUM CHLORIDE ER 20 MEQ TAB.ER PO SCH (16:00)
[2023-11-20] MEDS: APIXABAN 5 MG TAB PO SCH (16:00)
[2023-11-20] MEDS: MIDODRINE 5 MG TAB PO SCH (16:00)
[2023-11-20] MEDS ORDERED: MAGNESIUM HYDROXIDE 2,400 MG/30 ML CUP PO PRN (17:54)
[2023-11-20 19:55] LABS: Urine Alcohol Negative (Negative); Urine Barbiturate Negative (Negative); Urine Cocaine Negative (Negative); Urine Methadone Negative (Negative); Urine Opiates Negative (Negative); Urine Phencyclidine Negative (Negative)
[2023-11-20] MEDS: guaiFENesin 600 MG TABLET.ER PO SCH (20:14)
[2023-11-20] MEDS: QUEtiapine 25 MG TAB PO SCH (20:15)
[2023-11-20] MEDS: LORazepam 0.5 MG TAB PO PRN (22:40)
[2023-11-21] MEDS: METOPROLOL TARTRATE 12.5 MG TAB PO SCH (00:06)
[2023-11-21] MEDS: PANTOPRAZOLE 40 MG TABLET PO SCH (05:55)
[2023-11-21] MEDS: LEVOTHYROXINE 100 MCG TAB PO SCH (05:55)
[2023-11-21] MEDS: MAGNESIUM OXIDE 400 MG TAB PO SCH (05:55)
--- NOTE | 2023-11-21 06:33 | P.HPIM ---
History of Present Illness H&P Date: 11/20/23 HISTORY OF PRESENT ILLNESS: 73-year-old with active medical history of chronic alcoholism, A-fib with RVR, history of CVA/TIA, hypertension, previous history of myocardial infarction, GERD, chronic anemia, who was transferred to [facility] On 11/12/2023 after be ing in the hospital for 2 weeks with main diagnosis at the time of altered ental status, metabolic acidosis, hypoxic respiratory failure, acute alcohol withdrawal, systolic congestive heart failure with ejection fraction of 20 percentile most likely from alcoholic cardiomyopathy, again pancytopenia and 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 Also had left sided large pleural effusion. With stage II ulcer on the left buttocks with unstageable ulcer on the right buttocks at the time. The patient did not do well in [facility] at the time and continue not to respond that well been anxious all the time still having some sign and symptom of alcohol withdrawal with quite a bit altered mental status confusion and such. 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 Hospital again: Patient to be in A- fib with RVR with pulse rate of 130 beats per minutes. Continue to have significant confusion and altered mental status. Was giving Cardizem initially and initiate his metoprolol and claimed that his pulse rate had responded decide to keep him in the hospital to see cardiology for maybe a Holter management avoid having A-fib happening all the time. He become quite bit confused and agitated ended up having CAT scan of the brain without contrast showed scattered small area of cortical infarct of the lateral left frontal lobe with right occipital lobe as well and biparietal subcortical white matter change.. His laboratory value with CBC CMP shows mildly elevated bilirubin proBNP was 16,900 with troponin of 0.026 UA is currently positive for RBC some WBC toxicology and drug screen along with respiratory culture were negative. REVIEW OF SYSTEMS: CONSTITUTIONAL: Well-developed confused in no acute respiratory distress EYES: No icterus sclerae, no conjunctivitis. EARS, NOSE, MOUTH, THROAT, and FACE: No sore throat, lymphadenopathy, carotid bruits or deformity. RESPIRATORY: No SOB cough or wheezes. CARDIOVASCULAR: Positive. Currently palpitation. GASTROINTESTINAL: No Abd pain, Nausea or vomiting, no Diarrhea or constipation, No GI Bleed, no distention or masses. GENITOURINARY: Still have hematuria. INTEGUMENT/BREAST: Negative for any muscular injury with mild osteoarthritis.. HEMATOLOGIC/LYMPHATIC: Negative for bleed or purpura. MUSCULOSKELTAL: Negative for Myalgia or arthralgia. NEURLOGICAL: Quite bit confused alert moving all his 4 extremity. BEHAVIORAL/PSYCH: Quite bit anxious and confused. ENDOCRINE: Negative. PHYSICAL EXAMINATION: General Appearance: Alert, confused no acute respiratory distress. Neck HEENT: Supple, no lymphadenopathy, no thyroid enlargement, no carotid bruits. Lungs: Decreased breath sound bilaterally fine rhonchi no crackles or wheezes. Chest Wall: Decreased expansion with deep inspiration no tenderness and no deformity was found on exam, no costochondral pain or discomfort. Heart: Irregular rate and rhythm, S1, S2 positive S3 positive systolic murmur. Back: Symmetric, no curvature, ROM normal, no CVA tenderness. Abdomen: Soft, non-tender, bowel sounds active all four quadrants, no masses, no organomegaly. Extremities: Extremities normal, atraumatic, no cyanosis positive edema Pulses: 2+ and symmetric. Skin: Skin color, texture, tugor normal, no rashes or lesions. Neurologic: Alert confused, cranial nerves II through XII intact, positive generalized weakness with severe abnormal balance and gait. ASSESSMENT AND PLAN: _A-fib with RVR: Still not well-controlled, he was on metoprolol tartrate 12.5 mg twice a day should probably titrate dose up to 25 mg twice a day may be adding second agent to be helpful as a calcium channel geovani one of the option probably digoxin become a good option at this point not quite sure if patient is a good candidate to be on amiodarone specially with all the medical problem he has. Patient will be kept on pvc monitor will consult cardiology repeat EKG in the morning. _Severe cardiomyopathy most likely alcoholic type with ejection fraction of 20 percentile patient still is showing signs and symptoms of cardiomyopathy sadly with the blood pressure is not tight. Not able to titrate medication higher patient will benefit probably from being on Entresto decided to be him on metoprolol furosemide and probably adding some spironolactone. 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 _History of alcoholism with quite alcohol withdrawal and alcohol encephalopathy, continue current management full workup last time including scan and MRI of the brain was done the patient is not acting any different than before no new finding but will continue current management at some point probably patient might benefit from some of the active dementia medication like donepezil or rivastigmine. Will keep patient on smaller dose of benzodiazepine to help him against withdrawal at this point. _Hypertension: Blood pressure still quite bit low with the current symptoms he is on metoprolol only to make it more useful having to introduce Entresto patient probably can benefit from adding midodrine 5 mg twice a day to raise his blood pressure up little bit and prepare for keeping him on more medication to help his cardiomyopathy. _History of macrocytic anemia: Mostly related to alcoholism and B12 with folic acid deficiency, continue folic acid along with thiamine and B12 hemoglobin is much better. _Anticoagulation: Remain on Eliquis 5 mg twice a day. _Stage III chronic kidney disease mostly stage IIIa and has slight improvement his GFR remained at 59 continue hydration and supportive care. _Recurrent pleural effusion: Slightly bit better at this time no need for tho racentesis. _Severe GERD: Will continue pantoprazole 40 mg daily. _Hypothyroidism: Continue levothyroxine 200 mcg daily. _GI and DVT prophylaxis: He is remain on pantoprazole and Eliquis currently. _CODE STATUS: Full code. Admit patient to the inpatient service for more than 2 night stay. Past Medical History Past Medical History: Atrial Fibrillation, CVA/TIA, GERD/Reflux, Hypertension, Myocardial Infarction ([place]) Additional Past Medical History / Comment(s): CVA-2006 no residual Last Myocardial Infarction Date:: History of Any Multi-Drug Resistant Organisms: None Reported Past Surgical History: Heart Catheterization Additional Past Surgical History / Comment(s): Thoracentesis 11/06/23 Past Anesthesia/Blood Transfusion Reactions: No Reported Reaction Past Psychological History: No Psychological Hx Reported Smoking Status: Former smoker Past Alcohol Use History: Daily Past Drug Use History: None Reported - Past Family History Mother Family Medical History: No Reported History Father Family Medical History: Cancer Medications and Allergies Home Medications Medication Instructions Recorded Confirmed Type Ipratropium-Albuterol Nebulize 3 ml INHALATION RT-QID each 11/12/23 11/20/23 Rx [Duoneb 0.5 mg-3 mg/3 ml Soln] Nystatin 100,000 Unit/gm Oint 1 applic TOPICAL BID each 11/12/23 11/20/23 Rx [Mycostatin Oint] Acetaminophen Tab [Tylenol] 650 mg PO Q4H PRN 11/20/23 11/20/23 History Apixaban [Eliquis] 5 mg PO BID@0800,169911/20/23 11/20/23 History Doxycycline Hyclate 100 mg PO BID@0800,169911/20/23 11/20/23 History Folic Acid 1 mg PO DAILY@0811/20/23 11/20/23 History Furosemide [Lasix] 40 mg PO DAILY@0811/20/23 11/20/23 History Levothyroxine Sodium [Synthroid] 200 mcg PO DAILY@59911/20/23 11/20/23 History Magnesium Hydroxide [Milk of 7,200 mg PO DAILY PRN 11/20/23 11/20/23 History Magnesia Concentrate] Magnesium Oxide [Magox 400] 400 mg PO DAILY@59911/20/23 11/20/23 History Metoprolol Tartrate [Lopressor] 12.5 mg PO BID@0800,169911/20/23 11/20/23 History Midodrine [ProAmatine] 5 mg PO TID@0800,1200,169911/20/23 11/20/23 History Multivitamins, Thera [Multivitamin 1 tab PO DAILY@0811/20/23 11/20/23 History (formulary)] Na Phos,M-B/Na Phos,Di-Ba [Fleet 133 ml RECTAL DAILY PRN 11/20/23 11/20/23 History Adult] Nicotine 14Mg/24Hr Patch [Habitrol] 1 patch TRANSDERM DAILY@0811/20/23 11/20/23 History Pantoprazole [Protonix] 40 mg PO DAILY@0611/20/23 11/20/23 History Potassium Chloride [Klor-Con 20 20 meq PO BID@0800,17011/20/23 11/20/23 History Packets] QUEtiapine [SEROquel] See Taper PO DIRECTED 11/20/23 11/20/23 History Thiamine [Vitamin B-1] 100 mg PO DAILY@0800 11/20/23 11/20/23 History bisacodyL [Dulcolax] 10 mg RECTAL DAILY PRN 11/20/23 11/20/23 History guaiFENesin [guaiFENesin ER] 600 mg PO Q12HR 11/20/23 11/20/23 History predniSONE 10 mg PO DAILY 11/20/23 11/20/23 History Allergies Allergy/AdvReac Type Severity Reaction Status Date / Time No Known Allergies Allergy Verified 11/20/23 12:24 Physical Exam Vitals: Vital Signs Temp Pulse Pulse Resp BP BP Pulse Ox 11/20/23 17:54 98 11/20/23 15:58 96.8 F L 11/20/23 15:53 106 H 14 123/73 98 11/20/23 15:19 97.5 F L 87 18 102/75 96 11/20/23 15:14 111 H 11/20/23 15:09 103 H 11/20/23 14:06 121 H 22 96/85 98 11/20/23 13:28 95 18 106/78 98 11/20/23 13:14 126 H 18 122/98 100 11/20/23 12:30 134 H 22 106/88 99 11/20/23 11:18 128 H 18 100/50 98 11/20/23 10:58 138 H 18 109/93 100 11/20/23 10:52 151 H 18 115/78 100 11/20/23 10:35 140 H 11/20/23 10:31 150 H 18 106/96 99 Intake and Output 11/20/23 11/20/23 11/20/23 06:59 14:59 22:59 Intake Total 200 Balance 200 Intake: Oral 200 Other: Weight 74.843 kg Results CBC & Chem 7: 11/20/23 10:50 11/20/23 10:50 Labs: Abnormal Lab Results - Last 24 Hours (Table) 11/20/23 11/20/23 11/20/23 Range/Units 10:50 10:50 10:50 RBC 3.92 L (4.30-5.90) m/uL Hgb 11.4 L (13.0-17.5) gm/dL Hct 35.7 L (39.0-53.0) % RDW 16.0 H (11.5-15.5) % PT 13.4 H (10.0-12.5) sec INR 1.3 H (<1.2) Sodium 136 L (137-145) mmol/L Carbon Dioxide 20 L (22-30) mmol/L BUN 31 H (9-20) mg/dL Total Bilirubin 1.5 H (0.2-1.3) mg/dL Urine Protein (Negative) Urine Blood (Negative) Urine RBC (0-5) /hpf Urine WBC (0-5) /hpf Urine Bacteria (None) /hpf Hyaline Casts (0-2) /lpf Urine Mucus (None) /hpf 11/20/23 Range/Units 13:38 RBC (4.30-5.90) m/uL Hgb (13.0-17.5) gm/dL Hct (39.0-53.0) % RDW (11.5-15.5) % PT (10.0-12.5) sec INR (<1.2) Sodium (137-145) mmol/L Carbon Dioxide (22-30) mmol/L BUN (9-20) mg/dL Total Bilirubin (0.2-1.3) mg/dL Urine Protein 1+ H (Negative) Urine Blood Large H (Negative) Urine RBC >182 H (0-5) /hpf Urine WBC 8 H (0-5) /hpf Urine Bacteria Rare H (None) /hpf Hyaline Casts 7 H (0-2) /lpf Urine Mucus Rare H (None) /hpf
[2023-11-21] MEDS: SACUBITRIL/VALSARTAN 24 MG-26 MG TABLET PO SCH (08:25)
[2023-11-21] MEDS: THIAMINE 100 MG TAB PO SCH (08:25)
[2023-11-21] MEDS: METOPROLOL TARTRATE 25 MG TAB PO SCH (08:25)
[2023-11-21] MEDS: FOLIC ACID 1 MG TAB PO SCH (08:25)
[2023-11-21] MEDS: FUROSEMIDE 40 MG TAB PO SCH (08:25)
[2023-11-21] MEDS: MULTIVITAMINS, THERA 1 EACH TAB PO SCH (08:25)
[2023-11-21] MEDS: MIDODRINE 5 MG TAB PO SCH (08:31)
[2023-11-21] MEDS: DIGOXIN 125 MCG TAB PO SCH (08:31)
--- NOTE | 2023-11-21 08:41 | P.CRDCN ---
History of Present Illness History of present illness: This is Dr. Duff dictating a consult on this patient The patient was interviewed and examined IMPRESSION / ASSESSMENT: Recurrent atrial fibrillation, persistent Severe cardiomyopathy, global with congestive heart failure History of elevated creatinine up to 3.0 in January 2023 Improvement in renal function with creatinine around 1.0 since October 2023 Moderate to severe biatrial enlargement Normal coronary arteries in 2018 History of CVA and recurrent cortical infarcts with cerebral atrophy Regular and heavy alcohol abuse PLAN: I would recommend stopping midodrine since he has a cardiomyopathy. This drug is harmful and counterproductive in congestive heart failure even in the presence of low blood pressure Increase metoprolol to 12.5 mg 3 times a day Digoxin 0.125 mg p.o. daily for better rate control Detailed discussion with the patient regarding the ill effects of alcohol and the impact on the heart especially related to cardiomyopathy and atrial fibrillation as well as the autonomic nervous system and impact on blood pressure We maximize beta-blockers and perhaps even increase digoxin for rate control and add low-dose spironolactone Abstinence from alcohol use is critical without which the prognosis is dismal. This was explained to the patient Follow-up with Dr. Booth as an outpatient HPI 72-year-old male patient presenting with shortness of breath He was found to be in atrial fibrillation with RVR with bilateral effusions. Patient was discharged home He came back again with shortness of breath and was in A-fib with RVR ROS: No fever chills or rigors, no cough, phlegm or expectoration, no nausea, vomiting or diarrhea, no hematuria, dysuria, no musculoskeletal complaints, no strokes or seizures, no skin lesions. EXAMINATION: blood Pressure between 90 to 100 mmHg, elevated heart rates irregular Patient is in atrial fibrillation No murmurs No JVD REVIEW OF LABS, ECG & MEDICAL DATA Chest x-ray shows bilateral pleural effusions, small Twelve-lead EKG shows atrial fibrillation with RVR CT of the head shows moderate generalized atrophy with old cortical infarcts in the lateral left frontal lobe right occipital lobe and bilateral subcortical white matter His home medications include Eliquis 5 mg twice daily Lasix 40 mg daily levothyroxine oral magnesium Metoprolol 12.5 mg twice daily Midodrine 5 mg 3 times a day, Seroquel and thiamine He has a past history of atrial fibrillation CVA, GERD hypertension CVA in 2006 Myocardial infarction in November 2019 He had a thoracentesis on 5 Petra in 2023 Severe LV dysfunction ejection fraction 20% global hypokinesis Moderate to severe dilated LA and RA Labs show hemoglobin of 11.4 Sodium 136 potassium 4.79 NT proBNP almost 17,000 BUN is 31 creatinine is 1.24 Coronary angiography in 2019 showed an LVEDP of 12 to 14 mmHg and no significant coronary artery disease The note states he had chronic renal insufficiency The stress echo at that time showed baseline normal LV function CASE in 2019 showed normal LV size and function Past Medical History Past Medical History: Atrial Fibrillation, CVA/TIA, GERD/Reflux, Hypertension, Myocardial Infarction ([place]) Additional Past Medical History / Comment(s): CVA-2006 no residual Last Myocardial Infarction Date:: History of Any Multi-Drug Resistant Organisms: None Reported Past Surgical History: Heart Catheterization Additional Past Surgical History / Comment(s): Thoracentesis 11/06/23 Past Anesthesia/Blood Transfusion Reactions: No Reported Reaction Past Psychological History: No Psychological Hx Reported Smoking Status: Former smoker Past Alcohol Use History: Daily Past Drug Use History: None Reported - Past Family History Mother Family Medical History: No Reported History Father Family Medical History: Cancer Medications and Allergies Home Medications Medication Instructions Recorded Confirmed Type Ipratropium-Albuterol Nebulize 3 ml INHALATION RT-QID each 11/12/23 11/20/23 Rx [Duoneb 0.5 mg-3 mg/3 ml Soln] Nystatin 100,000 Unit/gm Oint 1 applic TOPICAL BID each 11/12/23 11/20/23 Rx [Mycostatin Oint] Acetaminophen Tab [Tylenol] 650 mg PO Q4H PRN 11/20/23 11/20/23 History Apixaban [Eliquis] 5 mg PO BID@0800,1700 11/20/23 11/20/23 History Doxycycline Hyclate 100 mg PO BID@0800,1700 11/20/23 11/20/23 History Folic Acid 1 mg PO DAILY@0800 11/20/23 11/20/23 History Furosemide [Lasix] 40 mg PO DAILY@0800 11/20/23 11/20/23 History Levothyroxine Sodium [Synthroid] 200 mcg PO DAILY@0600 11/20/23 11/20/23 History Magnesium Hydroxide [Milk of 7,200 mg PO DAILY PRN 11/20/23 11/20/23 History Magnesia Concentrate] Magnesium Oxide [Magox 400] 400 mg PO DAILY@0600 11/20/23 11/20/23 History Metoprolol Tartrate [Lopressor] 12.5 mg PO BID@0800,1700 11/20/23 11/20/23 History Midodrine [ProAmatine] 5 mg PO TID@0800,1200,1700 11/20/23 11/20/23 History Multivitamins, Thera [Multivitamin 1 tab PO DAILY@0800 11/20/23 11/20/23 History (formulary)] Na Phos,M-B/Na Phos,Di-Ba [Fleet 133 ml RECTAL DAILY PRN 11/20/23 11/20/23 History Adult] Nicotine 14Mg/24Hr Patch [Habitrol] 1 patch TRANSDERM DAILY@0800 11/20/23 11/20/23 History Pantoprazole [Protonix] 40 mg PO DAILY@0600 11/20/23 11/20/23 History Potassium Chloride [Klor-Con 20 20 meq PO BID@0800,1700 11/20/23 11/20/23 History Packets] QUEtiapine [SEROquel] See Taper PO DIRECTED 11/20/23 11/20/23 History Thiamine [Vitamin B-1] 100 mg PO DAILY@0800 11/20/23 11/20/23 History bisacodyL [Dulcolax] 10 mg RECTAL DAILY PRN 11/20/23 11/20/23 History guaiFENesin [guaiFENesin ER] 600 mg PO Q12HR 11/20/23 11/20/23 History predniSONE 10 mg PO DAILY 11/20/23 11/20/23 History Allergies Allergy/AdvReac Type Severity Reaction Status Date / Time No Known Allergies Allergy Verified 11/20/23 12:24 Physical Exam Vitals: Vital Signs Temp Pulse Pulse Resp BP BP Pulse Ox 11/20/23 17:54 98 11/20/23 15:58 96.8 F L 11/20/23 15:53 106 H 14 123/73 98 11/20/23 15:19 97.5 F L 87 18 102/75 96 11/20/23 15:14 111 H 11/20/23 15:09 103 H 11/20/23 14:06 121 H 22 96/85 98 11/20/23 13:28 95 18 106/78 98 11/20/23 13:14 126 H 18 122/98 100 11/20/23 12:30 134 H 22 106/88 99 11/20/23 11:18 128 H 18 100/50 98 11/20/23 10:58 138 H 18 109/93 100 11/20/23 10:52 151 H 18 115/78 100 11/20/23 10:35 140 H 11/20/23 10:31 150 H 18 106/96 99 Intake and Output 11/20/23 11/20/23 11/20/23 06:59 14:59 22:59 Intake Total 200 Balance 200 Intake: Oral 200 Other: Weight 74.843 kg Results 11/20/23 10:50 11/20/23 10:50 Cardiac Enzymes 11/20/23 11/20/23 Range/Units 10:50 10:50 AST 28 (17-59) U/L Troponin I 0.026 (0.000-0.034) ng/mL Coagulation 11/20/23 Range/Units 10:50 PT 13.4 H (10.0-12.5) sec APTT 26.9 (22.0-30.0) sec CBC 11/20/23 Range/Units 10:50 WBC 4.8 (3.8-10.6) k/uL RBC 3.92 L (4.30-5.90) m/uL Hgb 11.4 L (13.0-17.5) gm/dL Hct 35.7 L (39.0-53.0) % Plt Count 247 (150-450) k/uL Comprehensive Metabolic Panel 11/20/23 Range/Units 10:50 Sodium 136 L (137-145) mmol/L Potassium 4.7 (3.5-5.1) mmol/L Chloride 104 (98-107) mmol/L Carbon Dioxide 20 L (22-30) mmol/L BUN 31 H (9-20) mg/dL Creatinine 1.24 (0.66-1.25) mg/dL Glucose 85 (74-99) mg/dL Calcium 9.5 (8.4-10.2) mg/dL AST 28 (17-59) U/L ALT 16 (4-49) U/L Alkaline Phosphatase 83 (38-126) U/L Total Protein 6.8 (6.3-8.2) g/dL Albumin 3.6 (3.5-5.0) g/dL Current Medications Generic Name Dose Route Start Last Admin Trade Name Freq PRN Reason Stop Dose Admin Acetaminophen 650 mg 11/20/23 14:24 Acetaminophen Tab 325 Mg Tab PO Q4H PRN Fever and/ or Pain Albuterol/Ipratropium 3 ml 11/20/23 16:00 11/20/23 15:06 Ipratropium-Albuterol 3 Ml Neb INHALATION 3 ml RT-QID PENDING SALE TO [facility] Administration Apixaban 5 mg 11/20/23 17:00 11/20/23 16:00 Apixaban 5 Mg Tab PO 5 mg BID@0800,1700 PENDING SALE TO [facility] Administration Protocol Bisacodyl 10 mg 11/20/23 14:24 Bisacodyl 10 Mg Supp RECTAL DAILY PRN Constipation Folic Acid 1 mg 11/21/23 08:00 Folic Acid 1 Mg Tab PO DAILY@0800 PENDING SALE TO [facility] Furosemide 40 mg 11/21/23 08:00 Furosemide 40 Mg Tab PO DAILY@0800 PENDING SALE TO [facility] Guaifenesin 600 mg 11/20/23 21:00 Guaifenesin 600 Mg Tablet.Er PO Q12HR PENDING SALE TO [facility] Levothyroxine Sodium 200 mcg 11/21/23 06:00 Levothyroxine 100 Mcg Tab PO DAILY@0600 PENDING SALE TO [facility] Magnesium Hydroxide 2,400 mg 11/20/23 17:54 Magnesium Hydroxide 2,400 Mg/30 Ml Cup PO DAILY PRN Constipation Magnesium Oxide 400 mg 11/21/23 06:00 Magnesium Oxide 400 Mg Tab PO DAILY@0600 PENDING SALE TO [facility] Metoprolol Tartrate 12.5 mg 11/20/23 18:30 Metoprolol Tartrate 12.5 Mg Tab PO Q8H PENDING SALE TO [facility] Multivitamins 1 each 11/21/23 08:00 Multivitamins, Thera 1 Each Tab PO DAILY@0800 PENDING SALE TO [facility] Naloxone HCl 0.2 mg 11/20/23 12:24 Naloxone 0.4 Mg/Ml 1 Ml Vial IV Q2M PRN Opioid Reversal Ondansetron HCl 4 mg 11/20/23 14:09 11/20/23 14:09 Ondansetron 4 Mg/2 Ml Vial IVP 4 mg Q6HR PRN Administration Nausea And Vomiting Pantoprazole Sodium 40 mg 11/21/23 06:00 Pantoprazole 40 Mg Tablet PO DAILY@0600 [facility] Potassium Chloride 20 meq 11/20/23 17:00 11/20/23 16:00 Potassium Chloride Er 20 Meq Tab.Er PO 20 meq BID@0800,1700 [facility] Administration Prednisone 10 mg 11/20/23 15:00 11/20/23 15:25 Prednisone 10 Mg Tab PO 11/22/23 23:00 10 mg DAILY [facility] Administration Quetiapine Fumarate 25 mg 11/20/23 21:00 Quetiapine 25 Mg Tab PO HS [facility] Thiamine HCl 100 mg 11/21/23 08:00 Thiamine 100 Mg Tab PO DAILY@0800 [facility] Intake and Output 11/20/23 11/20/23 11/20/23 06:59 14:59 22:59 Intake Total 200 Balance 200 Intake: Oral 200 Other: Weight 74.843 kg Patient Weight 11/21/23 06:59 Weight 74.843 kg 11/20/23 10:50 11/20/23 10:50
[2023-11-21 08:57] LABS: Basophils # (A) 0.03 X 10*3/uL (0.00-0.10); Basophils % (A) 0.5 %; Eosinophils # (A) 0.01 X 10*3/uL (0.04-0.35); Eosinophils % (A) 0.2 %; HCT 35.2 % (39.6-50.0); HGB 11.2 g/dL (13.0-17.0); Lymphocytes # (A) 1.24 X 10*3/uL (0.90-5.00); Lymphocytes % (A) 20.2 %; MCH 28.9 pg (27.0-32.0); MCHC 31.8 g/dL (32.0-37.0); Mean Platelet Volume 11.9 FL (9.5-12.2); Monocytes # (A) 0.71 X 10*3/uL (0.20-1.00); Monocytes % (A) 11.5 %; NRBC Per 100 WBC 0.02 X 10*3/uL (0.00-0.01); Neutrophils # (A) 4.14 X 10*3/uL (1.80-7.70); Neutrophils % (A) 67.3 %; Platelet Count 289 X 10*3/uL (140-440); RBC 3.87 X 10*6/uL (4.40-5.60); WBC 6.15 X 10*3/uL (4.50-10.00)
--- NOTE | 2023-11-21 09:00 | P.GSCN ---
History of Present Illness Consult date: 11/21/23 History of present illness: 73-year-old gentleman in the hospital with A. fib and RVR. He has multiple medical problems including severe cardiomyopathy and alcoholism. 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 He was seen by and a computed tomography scan with contrast was ordered. No evidence of metastatic disease was identified. He was supposed to follow-up in the office but ended up in the hospital before that happened. We are asked to see the patient.the patient's creatinine is 1.2. The hemoglobin is 11.4. The urinalysis shows hematuria as expected.his brain computed tomography scan does not show any evidence of metastatic disease. Chest x-ray showed bilateral pleural effusions which is probably cardiac in origin. Review of Systems All systems: negative Past Medical History Past Medical History: Atrial Fibrillation, CVA/TIA, GERD/Reflux, Hypertension, Myocardial Infarction (SD) Additional Past Medical History / Comment(s): CVA-2006 no residual Last Myocardial Infarction Date:: History of Any Multi-Drug Resistant Organisms: None Reported Past Surgical History: Heart Catheterization Additional Past Surgical History / Comment(s): Thoracentesis 11/06/23 Past Anesthesia/Blood Transfusion Reactions: No Reported Reaction Past Psychological History: No Psychological Hx Reported Smoking Status: Former smoker Past Alcohol Use History: Daily Past Drug Use History: None Reported - Past Family History Mother Family Medical History: No Reported History Father Family Medical History: Cancer Medications and Allergies Home Medications Medication Instructions Recorded Confirmed Type Ipratropium-Albuterol Nebulize 3 ml INHALATION RT-QID each 11/12/23 11/20/23 Rx [Duoneb 0.5 mg-3 mg/3 ml Soln] Nystatin 100,000 Unit/gm Oint 1 applic TOPICAL BID each 11/12/23 11/20/23 Rx [Mycostatin Oint] Acetaminophen Tab [Tylenol] 650 mg PO Q4H PRN 11/20/23 11/20/23 History Apixaban [Eliquis] 5 mg PO BID@0800,1700 11/20/23 11/20/23 History Doxycycline Hyclate 100 mg PO BID@0800,1700 11/20/23 11/20/23 History Folic Acid 1 mg PO DAILY@0800 11/20/23 11/20/23 History Furosemide [Lasix] 40 mg PO DAILY@0800 11/20/23 11/20/23 History Levothyroxine Sodium [Synthroid] 200 mcg PO DAILY@0600 11/20/23 11/20/23 History Magnesium Hydroxide [Milk of 7,200 mg PO DAILY PRN 11/20/23 11/20/23 History Magnesia Concentrate] Magnesium Oxide [Magox 400] 400 mg PO DAILY@0600 11/20/23 11/20/23 History Metoprolol Tartrate [Lopressor] 12.5 mg PO BID@0800,1700 11/20/23 11/20/23 History Midodrine [ProAmatine] 5 mg PO TID@0800,1200,1700 11/20/23 11/20/23 History Multivitamins, Thera [Multivitamin 1 tab PO DAILY@0800 11/20/23 11/20/23 History (formulary)] Na Phos,M-B/Na Phos,Di-Ba [Fleet 133 ml RECTAL DAILY PRN 11/20/23 11/20/23 History Adult] Nicotine 14Mg/24Hr Patch [Habitrol] 1 patch TRANSDERM DAILY@0800 11/20/23 11/20/23 History Pantoprazole [Protonix] 40 mg PO DAILY@0600 11/20/23 11/20/23 History Potassium Chloride [Klor-Con 20 20 meq PO BID@0800,1700 11/20/23 11/20/23 History Packets] QUEtiapine [SEROquel] See Taper PO DIRECTED 11/20/23 11/20/23 History Thiamine [Vitamin B-1] 100 mg PO DAILY@0800 11/20/23 11/20/23 History bisacodyL [Dulcolax] 10 mg RECTAL DAILY PRN 11/20/23 11/20/23 History guaiFENesin [guaiFENesin ER] 600 mg PO Q12HR 11/20/23 11/20/23 History predniSONE 10 mg PO DAILY 11/20/23 11/20/23 History Allergies Allergy/AdvReac Type Severity Reaction Status Date / Time No Known Allergies Allergy Verified 11/20/23 12:24 Surgical - Exam Vital Signs Pulse Resp BP Pulse Ox 150 H 18 106/96 99 11/20/23 10:31 11/20/23 10:31 11/20/23 10:31 11/20/23 10:31 Results - Labs 11/21/23 04:52 11/20/23 10:50 Abnormal Lab Results - Last 24 Hours (Table) 11/20/23 11/20/23 11/20/23 Range/Units 10:50 10:50 10:50 RBC 3.92 L (4.30-5.90) m/uL Hgb 11.4 L (13.0-17.5) gm/dL Hct 35.7 L (39.0-53.0) % RDW 16.0 H (11.5-15.5) % PT 13.4 H (10.0-12.5) sec INR 1.3 H (<1.2) Sodium 136 L (137-145) mmol/L Carbon Dioxide 20 L (22-30) mmol/L BUN 31 H (9-20) mg/dL Total Bilirubin 1.5 H (0.2-1.3) mg/dL Urine Protein (Negative) Urine Blood (Negative) Urine RBC (0-5) /hpf Urine WBC (0-5) /hpf Urine Bacteria (None) /hpf Hyaline Casts (0-2) /lpf Urine Mucus (None) /hpf 11/20/23 Range/Units 13:38 RBC (4.30-5.90) m/uL Hgb (13.0-17.5) gm/dL Hct (39.0-53.0) % RDW (11.5-15.5) % PT (10.0-12.5) sec INR (<1.2) Sodium (137-145) mmol/L Carbon Dioxide (22-30) mmol/L BUN (9-20) mg/dL Total Bilirubin (0.2-1.3) mg/dL Urine Protein 1+ H (Negative) Urine Blood Large H (Negative) Urine RBC >182 H (0-5) /hpf Urine WBC 8 H (0-5) /hpf Urine Bacteria Rare H (None) /hpf Hyaline Casts 7 H (0-2) /lpf Urine Mucus Rare H (None) /hpf Diabetes panel 11/20/23 Range/Units 10:50 Sodium 136 L (137-145) mmol/L Potassium 4.7 (3.5-5.1) mmol/L Chloride 104 (98-107) mmol/L Carbon Dioxide 20 L (22-30) mmol/L BUN 31 H (9-20) mg/dL Creatinine 1.24 (0.66-1.25) mg/dL Glucose 85 (74-99) mg/dL Calcium 9.5 (8.4-10.2) mg/dL AST 28 (17-59) U/L ALT 16 (4-49) U/L Alkaline Phosphatase 83 (38-126) U/L Total Protein 6.8 (6.3-8.2) g/dL Albumin 3.6 (3.5-5.0) g/dL Calcium panel 11/20/23 Range/Units 10:50 Calcium 9.5 (8.4-10.2) mg/dL Albumin 3.6 (3.5-5.0) g/dL Pituitary panel 11/20/23 Range/Units 10:50 Sodium 136 L (137-145) mmol/L Potassium 4.7 (3.5-5.1) mmol/L Chloride 104 (98-107) mmol/L Carbon Dioxide 20 L (22-30) mmol/L BUN 31 H (9-20) mg/dL Creatinine 1.24 (0.66-1.25) mg/dL Glucose 85 (74-99) mg/dL Calcium 9.5 (8.4-10.2) mg/dL Adrenal panel 11/20/23 Range/Units 10:50 Sodium 136 L (137-145) mmol/L Potassium 4.7 (3.5-5.1) mmol/L Chloride 104 (98-107) mmol/L Carbon Dioxide 20 L (22-30) mmol/L BUN 31 H (9-20) mg/dL Creatinine 1.24 (0.66-1.25) mg/dL Glucose 85 (74-99) mg/dL Calcium 9.5 (8.4-10.2) mg/dL Total Bilirubin 1.5 H (0.2-1.3) mg/dL AST 28 (17-59) U/L ALT 16 (4-49) U/L Alkaline Phosphatase 83 (38-126) U/L Total Protein 6.8 (6.3-8.2) g/dL Albumin 3.6 (3.5-5.0) g/dL - Imaging CT scan - abdomen: report reviewed, image reviewed CT scan - pelvis: report reviewed, image reviewed Assessment and Plan Assessment: impression: Atrial fibrillation with RVR, multiple medical illnesses including alcoholism. 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 Recommendations: It does not appear as if the disease is metastatic. The patient will eventually need a left nephroureterectomy. He also will need a cystoscopy at some point in time. Obviously his medical problems need to be addressed before any surgical intervention is performed. We will follow.
[2023-11-21 09:34] LABS: ALT 21 U/L (10-49); AST 29 U/L (14-35); Albumin 3.6 g/dL (3.8-4.9); Alkaline Phosphatase 91 U/L (41-126); BUN/Creat Ratio 21.72 Ratio (12.00-20.00); Blood Urea Nitrogen 39.1 mg/dL (9.0-27.0); Calcium 9.3 mg/dL (8.7-10.3); Carbon Dioxide 17.5 mmol/L (21.6-31.8); Chloride 98 mmol/L (96-109); Glucose 86 mg/dL (70-110); Potassium 6.1 mmol/L (3.5-5.5); Sodium 133 mmol/L (135-145); Total Bilirubin 1.3 mg/dL (0.3-1.2); Total Protein 6.6 g/dL (6.2-8.2)
[2023-11-21] MEDS: SODIUM ZIRCONIUM CYCLOSILICATE 10 GM PACKET PO ONE (11:20)
[2023-11-21 15:56] LABS: ALT 23 U/L (4-49); AST 50 U/L (17-59); African American GFR (CKD) 44 (>60 ml/min/1.73 sqM); Albumin 3.5 g/dL (3.5-5.0); Albumin/Globulin Ratio 1.1; Alkaline Phosphatase 84 U/L (38-126); Anion Gap 17 mmol/L; Blood Urea Nitrogen 49 mg/dL (9-20); Carbon Dioxide 12 mmol/L (22-30); Chloride 104 mmol/L (98-107); Globulin 3.1 g/dL; Glucose 110 mg/dL (74-99); Non-African American GFR(CKD) 38 (>60 ml/min/1.73 sqM); Potassium 5.6 mmol/L (3.5-5.1); Sodium 133 mmol/L (137-145); Total Bilirubin 1.4 mg/dL (0.2-1.3); Total Protein 6.6 g/dL (6.3-8.2)
[2023-11-21] MEDS: DONEPEZIL 5 MG TAB PO SCH (20:36)
[2023-11-22] MEDS: LORazepam 0.5 MG TAB PO ONE (01:02)
[2023-11-22] MEDS: SODIUM BICARBONATE TAB 650 MG TAB PO SCH (01:04)
[2023-11-22] MEDS: ACETAMINOPHEN TAB 325 MG TAB PO PRN (08:07)
--- NOTE | 2023-11-22 08:50 | P.PN ---
Subjective Progress Note Date: 11/21/23 HISTORY OF PRESENT ILLNESS: 73-year-old with active medical history of chronic alcoholism, A-fib with RVR, history of CVA/TIA, hypertension, previous history of myocardial infarction, GERD, chronic anemia, who was transferred to [facility] On 11/12/2023 after being in the hospital for 2 weeks with main diagnosis at the time of altered ental status, metabolic acidosis, hypoxic respiratory failure, acute alcohol withdrawal, systolic congestive heart failure with ejection fraction of 20 percentile most likely from alcoholic cardiomyopathy, again pancytopenia and 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 Also had left sided large pleural effusion. With stage II ulcer on the left buttocks with unstageable ulcer on the right buttocks at the time. The patient did not do well in [facility] at the time and continue not to respond that well been anxious all the time still having some sign and symptom of alcohol withdrawal with quite a bit altered mental status confusion and such. 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 Hospital again: Patient to be in A- fib with RVR with pulse rate of 130 beats per minutes. Continue to have significant confusion and altered mental status. Was giving Cardizem initially and initiate his metoprolol and claimed that his pulse rate had responded decide to keep him in the hospital to see cardiology for maybe a Holter management avoid having A-fib happening all the time. He become quite bit confused and agitated ended up having CAT scan of the brain without contrast showed scattered small area of cortical infarct of the lateral left frontal lobe with right occipital lobe as well and biparietal subcortical white matter change.. His laboratory value with CBC CMP shows mildly elevated bilirubin proBNP was 16,900 with troponin of 0.026 UA is currently positive for RBC some WBC toxicology and drug screen along with respiratory culture were negative. 09/20/2023: The patient is doing much better with A-fib with RVR but continue to have significant sign and symptom of cardiomyopathy worsening symptom of encephalopathy as well related to his alcoholism slightly with a challenge in his kidney function and potassium his creatinine is up to 1.8 with GFR down to 40 potassium was 6.1 we will use 1 dose of Lokelma to bring his potassium down patient will be seen nephrology in consultation in the meanwhile continue current management for his A-fib and current problem initially the plan was probably to initiate patient on Entresto better beta-geovani spironolactone with furosemide and he was taking off potassium supplement completely and patient is declining more including decline in his mental status and encephalopathy is more than expected. Again has a matter of the large side with urethral mass which is causing mild o bstructive uropathy on the left side will consult urology for possible need for intervention of any type. Initial plan with the emergency room to have patient hospitalized stabilize A-fib and send him back to [facility]. Patient is still not stable in any aspect slightly but worsening complexity of multiple problem we will keep him in the hospital for now try to have a better solution and management for his A-fib, cardiomyopathy, encephalopathy, acute kidney injury with kidney failure and ureteral mass before returning to [facility] patient is still under the effect of worsening mental status especially with his alcohol withdrawal despite not drinking for period of time he still on delirium tremor watch with CIWA still on lorazepam on as-needed basis. REVIEW OF SYSTEMS: CONSTITUTIONAL: Well-developed confused in no acute respiratory distress EYES: No icterus sclerae, no conjunctivitis. EARS, NOSE, MOUTH, THROAT, and FACE: No sore throat, lymphadenopathy, carotid bruits or deformity. RESPIRATORY: No SOB cough or wheezes. CARDIOVASCULAR: Positive. Currently palpitation. GASTROINTESTINAL: No Abd pain, Nausea or vomiting, no Diarrhea or constipation, No GI Bleed, no distention or masses. GENITOURINARY: Still have hematuria. INTEGUMENT/BREAST: Negative for any muscular injury with mild osteoarthritis.. HEMATOLOGIC/LYMPHATIC: Negative for bleed or purpura. MUSCULOSKELTAL: Negative for Myalgia or arthralgia. NEURLOGICAL: Quite bit confused alert moving all his 4 extremity. BEHAVIORAL/PSYCH: Quite bit anxious and confused. ENDOCRINE: Negative. PHYSICAL EXAMINATION: General Appearance: Alert, confused no acute respiratory distress. Neck HEENT: Supple, no lymphadenopathy, no thyroid enlargement, no carotid bruits. Lungs: Decreased breath sound bilaterally fine rhonchi no crackles or wheezes. Chest Wall: Decreased expansion with deep inspiration no tenderness and no deformity was found on exam, no costochondral pain or discomfort. Heart: Irregular rate and rhythm, S1, S2 positive S3 positive systolic murmur. Back: Symmetric, no curvature, ROM normal, no CVA tenderness. Abdomen: Soft, non-tender, bowel sounds active all four quadrants, no masses, no organomegaly. Extremities: Extremities normal, atraumatic, no cyanosis positive edema Pulses: 2+ and symmetric. Skin: Skin color, texture, tugor normal, no rashes or lesions. Neurologic: Alert confused, cranial nerves II through XII intact, positive generalized weakness with severe abnormal balance and gait. ASSESSMENT AND PLAN: _A-fib with RVR: Still not well-controlled, he was on metoprolol tartrate 12.5 mg twice a day should probably titrate dose up to 25 mg twice a day, Cardiology had seen patient and believed adding digoxin was a good choice no need for any amiodarone or any other management at this point. _Severe cardiomyopathy most likely alcoholic type with ejection fraction of 20 p ercentile patient still is showing signs and symptoms of cardiomyopathy sadly with the blood pressure is not tight. Could not do Entresto for now because of acute kidney injury spironolactone was started beside furosemide. May be will decide to the smaller dose of ARB if patient can tolerate it. _Hyperkalemia: Potassium is up to 6.0 Lokelma 1 dose was started patient will be seen nephrology. _Acute kidney injury which most likely secondary to acute tubular necrosis plus slight left-sided obstructive uropathy from the mass in the rectal area kidney function slightly bit worse will consult nephrology and urology the patient will have probably another ultrasound of the kidney. 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 _History of alcoholism with quite alcohol withdrawal and alcohol encephalopathy, continue current management full workup last time including scan and MRI of the brain was done the patient is not acting any different than before no new finding but will continue current management at some point probably patient might benefit from some of the active dementia medication like donepezil or rivastigmine. Will keep patient on smaller dose of benzodiazepine to help him against withdrawal at this point. _Hypertension: Blood pressure still quite bit low with the current symptoms he is on metoprolol only to make it more useful having to introduce Entresto patient probably can benefit from adding midodrine 5 mg twice a day to raise his blood pressure up little bit and prepare for keeping him on more medication to help his cardiomyopathy. _Alcoholic encephalopathy: With worsening symptoms lately the patient again might benefit eventually from adding lactulose and probably rifampin. _History of macrocytic anemia: Mostly related to alcoholism and B12 with folic acid deficiency, continue folic acid along with thiamine and B12 hemoglobin is much better. _Anticoagulation: Remain on Eliquis 5 mg twice a day. _Stage III chronic kidney disease mostly stage IIIa and has slight improvement his GFR remained at 59 continue hydration and supportive care. _Recurrent pleural effusion: Slightly bit better at this time no need for thoracentesis. _Severe GERD: Will continue pantoprazole 40 mg daily. _Hypothyroidism: Continue levothyroxine 200 mcg daily. Discussion: A-fib is much better but patient is with hyperkalemia and acute kidney injury with worsening encephalopathy will continue to be hospitalized his admission was switched to regular admit we will continue watching him on the weekend continue to watch for any alcohol withdrawal or any hepatic encephalopathy symptoms. Patient to be seen nephrology, urology and cardiology. Objective - Vital Signs Vital signs: Vital Signs Temp 97.0 F L 11/22/23 02:00 Pulse 94 11/22/23 07:00 Resp 15 11/22/23 07:00 BP 92/63 11/22/23 07:00 Pulse Ox 99 11/22/23 07:00 FiO2 Intake & Output 11/21/23 11/22/23 11/22/23 18:59 06:59 18:59 Intake Total 518 720 Output Total 300 3 Balance 218 717 Intake: Oral 518 720 Output: Urine 300 3 Other: Voiding Method Toilet Urinal # Voids 3 3 # Bowel Movements 1 - Labs CBC & Chem 7: 11/21/23 04:52 11/21/23 13:59 Labs: Abnormal Lab Results - Last 24 Hours (Table) 11/21/23 11/21/23 11/21/23 Range/Units 04:52 04:52 13:59 RBC 3.87 L (4.40-5.60) X 10*6/uL Hgb 11.2 L (13.0-17.0) g/dL Hct 35.2 L (39.6-50.0) % MCHC 31.8 L (32.0-37.0) g/dL RDW 17.0 H (11.5-14.5) % Eosinophils # 0.01 L (0.04-0.35) X 10*3/uL NRBC/100 WBC Diff 0.02 H (0.00-0.01) X 10*3/uL Sodium 133 L 133 L (135-145) mmol/L Potassium 6.1 A* 5.6 H (3.5-5.5) mmol/L Carbon Dioxide 17.5 L 12 L (21.6-31.8) mmol/L Anion Gap 17.50 H (4.00-12.00) mmol/L BUN 39.1 H 49 H (9.0-27.0) mg/dL Creatinine 1.8 H 1.76 H (0.6-1.5) mg/dL Est GFR (CKD-EPI) 40 L (>=60) BUN/Creatinine Ratio 21.72 H (12.00-20.00) Ratio Glucose 110 H (74-99) mg/dL Total Bilirubin 1.3 H 1.4 H (0.3-1.2) mg/dL Albumin 3.6 L (3.8-4.9) g/dL Albumin/Globulin Ratio 1.20 L (1.60-3.17) Ratio Microbiology - Last 24 Hours (Table) 11/20/23 13:38 Urine Culture - Final Urine,Voided
[2023-11-22 09:16] LABS: HCT 31.1 % (39.6-50.0); HGB 10.2 g/dL (13.0-17.0); MCH 29.1 pg (27.0-32.0); MCHC 32.8 g/dL (32.0-37.0); MCV 88.6 FL (80.0-97.0); Mean Platelet Volume 11.5 FL (9.5-12.2); NRBC Per 100 WBC 0 X 10*3/uL (0.00-0.01); Platelet Count 249 X 10*3/uL (140-440); RBC 3.51 X 10*6/uL (4.40-5.60); RDW 16.9 % (11.5-14.5); WBC 4.67 X 10*3/uL (4.50-10.00)
[2023-11-22 10:02] LABS: ALT 26 U/L (10-49); AST 36 U/L (14-35); Albumin 3.4 g/dL (3.8-4.9); Albumin/Globulin Ratio 1.26 Ratio (1.60-3.17); Alkaline Phosphatase 91 U/L (41-126); BUN/Creat Ratio 28.18 Ratio (12.00-20.00); Blood Urea Nitrogen 47.9 mg/dL (9.0-27.0); Calcium 8.8 mg/dL (8.7-10.3); Carbon Dioxide 19.4 mmol/L (21.6-31.8); Chloride 99 mmol/L (96-109); Globulin 2.7 g/dL (1.6-3.3); Glucose 113 mg/dL (70-110); Potassium 4.3 mmol/L (3.5-5.5); Sodium 130 mmol/L (135-145); Total Bilirubin 0.8 mg/dL (0.3-1.2); Total Protein 6.1 g/dL (6.2-8.2)
--- NOTE | 2023-11-22 13:31 | P.PN ---
Subjective Progress Note Date: 11/22/23 The patient is a 73-year-old male who is currently admitted to the hospital with atrial fibrillation and congestive heart failure. The patient is currently undergoing alcohol withdrawal syndrome. He is confused and incoherent. GENERAL: Ill-appearing, malnourished and in no acute distress. NECK: Supple without JVD or thyromegaly. LUNGS: Breath sounds diminished to auscultation bilaterally. Respiration equal and unlabored. No wheezes, rales or rhonchi. HEART: Irregular rate and rhythm without murmurs, rubs or gallops. S1 and S2 heard. EXTREMITIES: Normal range of motion, no edema. No clubbing or cyanosis. Peripheral pulses intact and strong. TELEMETRY: Rate controlled atrial fibrillation LABS: WBC 4.6, hemoglobin 10.6, hematocrit 31.1, sodium 130, potassium 4.3, BUN 47, creatinine 1.7, AST 36, ALT 26 IMPRESSION: Persistent atrial fibrillation Severe cardiomyopathy, global Congestive heart failure, systolic History of chronic kidney disease Moderate to severe biatrial enlargement History of CVA EtOH abuse PLAN: Give midodrine only for systolic blood pressures less than 80 mmHg Complete cessation from alcohol Continue beta-blockers and digoxin for rate control No further recommendations from the cardiac standpoint I am dictating on behalf of Dr Ja Duff's history/physical and assessment/plan. Objective - Vital Signs Vital signs: Vital Signs Temp 97.0 F L 11/22/23 02:00 Pulse 82 11/22/23 12:30 Resp 15 11/22/23 07:00 BP 92/63 11/22/23 07:00 Pulse Ox 96 11/22/23 12:21 FiO2 Intake & Output 11/21/23 11/22/23 11/22/23 18:59 06:59 18:59 Intake Total 518 720 Output Total 300 3 Balance 218 717 Intake: Oral 518 720 Output: Urine 300 3 Other: Voiding Method Toilet Toilet Urinal Urinal # Voids 3 3 # Bowel Movements 1 - Labs CBC & Chem 7: 11/22/23 02:57 11/22/23 02:57 Labs: Abnormal Lab Results - Last 24 Hours (Table) 11/21/23 11/22/23 11/22/23 Range/Units 13:59 02:57 02:57 RBC 3.51 L (4.40-5.60) X 10*6/uL Hgb 10.2 L (13.0-17.0) g/dL Hct 31.1 L (39.6-50.0) % RDW 16.9 H (11.5-14.5) % Sodium 133 L 130 L (137-145) mmol/L Potassium 5.6 H (3.5-5.1) mmol/L Carbon Dioxide 12 L 19.4 L (22-30) mmol/L BUN 49 H 47.9 H (9-20) mg/dL Creatinine 1.76 H 1.7 H (0.66-1.25) mg/dL Est GFR (CKD-EPI) 43 L (>=60) BUN/Creatinine Ratio 28.18 H (12.00-20.00) Ratio Glucose 110 H 113 H (74-99) mg/dL Total Bilirubin 1.4 H (0.2-1.3) mg/dL AST 36 H (14-35) U/L Total Protein 6.1 L (6.2-8.2) g/dL Albumin 3.4 L (3.8-4.9) g/dL Albumin/Globulin Ratio 1.26 L (1.60-3.17) Ratio Microbiology - Last 24 Hours (Table) 11/20/23 13:38 Urine Culture - Final Urine,Voided
--- NOTE | 2023-11-22 13:37 | P.PN ---
Subjective Progress Note Date: 11/22/23 Interval History: 73-year-old with active medical history of chronic alcoholism, A-fib with RVR, history of CVA/TIA, hypertension, previous history of myocardial infarction, GERD, chronic anemia, who was transferred to [facility] On 11/12/2023 after being in the hospital for 2 weeks with main diagnosis at the time of altered ental status, metabolic acidosis, hypoxic respiratory failure, acute alcohol withdrawal, systolic congestive heart failure with ejection fraction of 20 percentile most likely from alcoholic cardiomyopathy, again pancytopenia and 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 Also had left sided large pleural effusion. With stage II ulcer on the left buttocks with unstageable ulcer on the right bu ttocks at the time. The patient did not do well in [facility] at the time and continue not to respond that well been anxious all the time still having some sign and symptom of alcohol withdrawal with quite a bit altered mental status confusion and such. And early head start director on the evening of 11/19 2023 patient was sent to the hospital because of A-fib with RVR with pulse rate running over 120 beats per minutes was seen and evaluated and stabilized in the emergency room and sent back to [facility] few hours later had pulse rate again quite with rapid was sent back to the hospital 1 more time. Hospital again: Patient to be in A- fib with RVR with pulse rate of 130 beats per minutes. Continue to have significant confusion and altered mental status. Was giving Cardizem initially and initiate his metoprolol and claimed that his pulse rate had responded decide to keep him in the hospital to see cardiology for maybe a Holter management avoid having A-fib happening all the time. He become quite bit confused and agitated ended up having CAT scan of the brain without contrast showed scattered small area of cortical infarct of the lateral left frontal lobe with right occipital lobe as well and biparietal subcortical white matter change.. His laboratory value with CBC CMP shows mildly elevated bilirubin proBNP was 16,900 with troponin of 0.026 UA is currently positive for RBC some WBC toxicology and drug screen along with respiratory culture were negative. 09/20/2023: The patient is doing much better with A-fib with RVR but continue to have significant sign and symptom of cardiomyopathy worsening symptom of encephalopathy as well related to his alcoholism slightly with a challenge in his kidney function and potassium his creatinine is up to 1.8 with GFR down to 40 potassium was 6.1 we will use 1 dose of Lokelma to bring his potassium down patient will be seen nephrology in consultation in the meanwhile continue current management for his A-fib and current problem initially the plan was probably to initiate patient on Entresto better beta-geovani spironolactone with furosemide and he was taking off potassium supplement completely and patient is declining more including decline in his mental status and encephalopathy is more than expected. Again has a matter of the large side with urethral mass which is causing mild obstructive uropathy on the left side will consult urology for possible need for intervention of any type. Initial plan with the emergency room to have patient hospitalized stabilize A-fib and send him back to [facility]. Patient is still not stable in any aspect slightly but worsening complexity of multiple problem we will keep him in the hospital for now try to have a better solution and management for his A-fib, cardiomyopathy, encephalopathy, acute kidney injury with kidney failure and ureteral mass before returning to [facility] patient is still under the effect of worsening mental status especially with his alcohol withdrawal despite not drinking for period of time he still on delirium tremor watch with CIWA still on lorazepam on as-needed basis. 11/22/2023--- Heart rate is better 82 today. Saturating 96% on 2 L. WBCs 4.67, hemoglobin 9.2, platelet 249. Sodium is slightly low 130 today, potassium is normal 4.3. BUN 47, creatinine 1.7 same as yesterday. Patient is alert and oriented x 3, hard of hearing. Sitter at bedside. Was initially agitated, currently calm and cooperative. Cardiology following, recommended to give midodrine only for systolic blood pressure less than 80. Telemetry showing rate controlled atrial fibrillation. Remains on beta-geovani and digoxin for rate control. Assessment and plan: _A-fib with RVR: Heart rate is more controlled, currently on Lopressor 25 mg 4 times daily, digoxin 125 mcg, Eliquis. Cardiology following. _Severe cardiomyopathy most likely alcoholic type with ejection fraction of 20 percentile patient still is showing signs and symptoms of cardiomyopathy sadly with the blood pressure is not tight. Could not do Entresto for now because of acute kidney injury spironolactone was started beside furosemide. May be will decide to the smaller dose of ARB if patient can tolerate it. _Hyperkalemia: Potassium is up to 6.0 Lokelma 1 dose was started patient will be seen nephrology. _Acute kidney injury which most likely secondary to acute tubular necrosis plus slight left-sided obstructive uropathy from the mass in the rectal area kidney function slightly bit worse --- nephrology and urology consulted. 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 _History of alcoholism with quite alcohol withdrawal and alcohol encephalopathy, continue current management full workup last time including scan and MRI of the brain was done the patient is not acting any different than before no new finding but will continue current management at some point probably patient might benefit from some of the active dementia medication like donepezil or rivastigmine. Will keep patient on smaller dose of benzodiazepine to help him against withdrawal at this point. _Hypertension: Blood pressure still quite bit low with the current symptoms he is on metoprolol only to make it more useful having to introduce Entresto patient probably can benefit from adding midodrine 5 mg twice a day to raise his blood pressure up little bit and prepare for keeping him on more medication to help his cardiomyopathy. _Alcoholic encephalopathy: With worsening symptoms lately the patient again might benefit eventually from adding lactulose and probably rifaximin. Thiamine, folic acid. Check ammonia. _History of macrocytic anemia: Mostly related to alcoholism and B12 with folic acid deficiency, continue folic acid along with thiamine and B12 hemoglobin is much better. _Anticoagulation: Remain on Eliquis 5 mg twice a day. _Stage III chronic kidney disease mostly stage IIIa and has slight improvement his GFR remained at 59 continue hydration and supportive care. _Recurrent pleural effusion: Slightly bit better at this time no need for thora centesis. _Severe GERD: Will continue pantoprazole 40 mg daily. _Hypothyroidism: Continue levothyroxine 200 mcg daily. Discussion: A-fib is much better but patient is with hyperkalemia and acute ki dney injury with worsening encephalopathy will continue to be hospitalized his admission was switched to regular admit we will continue watching him on the weekend continue to watch for any alcohol withdrawal or any hepatic encephalopathy symptoms. Patient to be seen nephrology, urology and cardiology. PHYSICAL EXAMINATION: GENERAL: The patient is A&O x3, NAD. Mild confusion. HEENT: EOMI, Sclerae anicteric, Moist Mucous membranes Neck: Supple, Non tender, No JVD PULMONARY: Equal breath souds B/L, No wheezing, No crackles. CARDIOVASCULAR: S1, S2 present. No murmurs, rubs, or gallops. ABDOMEN: Soft, nontender, nondistended, normoactive bowel sounds. No guarding or rebound tenderness. MUSCULOSKELETAL: No edema, No cyanosis. No clubbing. Normal ROM. Intact peripheral pulses. EXTREMITIES: No cyanosis, clubbing, or pedal edema. NEUROLOGICAL: CN 2-12 grossly intact. No FND Skin: No Rash REVIEW OF SYSTEMS: CONSTITUTIONAL: No fever or chills. CARDIOVASCULAR: No chest pain, palpitations or syncope. PULMONARY: No shortness of breath, no cough, sore throat. GASTROINTESTINAL: No nausea, vomiting, diarrhea, abdominal pain. : No Dysuria, urgency, frequency. Extremities: No edema. NEUROLOGICAL: No headaches, no weakness, or numbness Dictation was produced using [employer] dictation software. please excuse any grammatical, word or spelling errors. Objective - Vital Signs Vital signs: Vital Signs Temp 97.0 F L 11/22/23 02:00 Pulse 82 11/22/23 12:30 Resp 15 11/22/23 07:00 BP 92/63 11/22/23 07:00 Pulse Ox 96 11/22/23 12:21 FiO2 Intake & Output 11/21/23 11/22/23 11/22/23 18:59 06:59 18:59 Intake Total 518 720 Output Total 300 3 Balance 218 717 Intake: Oral 518 720 Output: Urine 300 3 Other: Voiding Method Toilet Toilet Urinal Urinal # Voids 3 3 # Bowel Movements 1 - Labs CBC & Chem 7: 11/22/23 02:57 11/22/23 02:57 Labs: Abnormal Lab Results - Last 24 Hours (Table) 11/21/23 11/22/23 11/22/23 Range/Units 13:59 02:57 02:57 RBC 3.51 L (4.40-5.60) X 10*6/uL Hgb 10.2 L (13.0-17.0) g/dL Hct 31.1 L (39.6-50.0) % RDW 16.9 H (11.5-14.5) % Sodium 133 L 130 L (137-145) mmol/L Potassium 5.6 H (3.5-5.1) mmol/L Carbon Dioxide 12 L 19.4 L (22-30) mmol/L BUN 49 H 47.9 H (9-20) mg/dL Creatinine 1.76 H 1.7 H (0.66-1.25) mg/dL Est GFR (CKD-EPI) 43 L (>=60) BUN/Creatinine Ratio 28.18 H (12.00-20.00) Ratio Glucose 110 H 113 H (74-99) mg/dL Total Bilirubin 1.4 H (0.2-1.3) mg/dL AST 36 H (14-35) U/L Total Protein 6.1 L (6.2-8.2) g/dL Albumin 3.4 L (3.8-4.9) g/dL Albumin/Globulin Ratio 1.26 L (1.60-3.17) Ratio Microbiology - Last 24 Hours (Table) 11/20/23 13:38 Urine Culture - Final Urine,Voided
--- NOTE | 2023-11-22 14:36 | P.NPCON ---
History of Present Illness - Reason for Consult Consult date: 11/22/23 - Chief Complaint SOB - History of Present Illness Patient is a 73-year-old male who presents emergency department complaining of shortness of breath that occurred this morning. Patient was already seen at our facility and evaluated. Was found to be in A-fib with RVR at that time and with bilateral pleural effusions. Eventually patient was discharged home as he was stable. Presents back for shortness of breath. Denies any chest pain or lower back pain today currently but states it did occur prior to earlier evaluation. Seen bedside today and feeling well with no new complaints. States his swelling is improved overall and shortness of breath improved. patient is awake, comfortable, alert oriented 3. No acute distress. Examination of the heart S1 and S2 Examination of the lungs bilateral breath sounds are heard Abdomen is soft nontender Examination of lower extremities no edema Review of Systems Constitutional: Reports as per HPI Past Medical History Past Medical History: Atrial Fibrillation, CVA/TIA, GERD/Reflux, Hypertension, Myocardial Infarction (CT) Additional Past Medical History / Comment(s): CVA-2006 no residual Last Myocardial Infarction Date:: History of Any Multi-Drug Resistant Organisms: None Reported Past Surgical History: Heart Catheterization Additional Past Surgical History / Comment(s): Thoracentesis 11/06/23 Past Anesthesia/Blood Transfusion Reactions: No Reported Reaction Past Psychological History: No Psychological Hx Reported Smoking Status: Former smoker Past Alcohol Use History: Daily Past Drug Use History: None Reported - Past Family History Mother Family Medical History: No Reported History Father Family Medical History: Cancer Medications and Allergies Home Medications Medication Instructions Recorded Confirmed Type Ipratropium-Albuterol Nebulize 3 ml INHALATION RT-QID each 11/12/23 11/20/23 Rx [Duoneb 0.5 mg-3 mg/3 ml Soln] Nystatin 100,000 Unit/gm Oint 1 applic TOPICAL BID each 11/12/23 11/20/23 Rx [Mycostatin Oint] Acetaminophen Tab [Tylenol] 650 mg PO Q4H PRN 11/20/23 11/20/23 History Apixaban [Eliquis] 5 mg PO BID@0800,1700 11/20/23 11/20/23 History Doxycycline Hyclate 100 mg PO BID@0800,1700 11/20/23 11/20/23 History Folic Acid 1 mg PO DAILY@0800 11/20/23 11/20/23 History Furosemide [Lasix] 40 mg PO DAILY@0800 11/20/23 11/20/23 History Levothyroxine Sodium [Synthroid] 200 mcg PO DAILY@0600 11/20/23 11/20/23 History Magnesium Hydroxide [Milk of 7,200 mg PO DAILY PRN 11/20/23 11/20/23 History Magnesia Concentrate] Magnesium Oxide [Magox 400] 400 mg PO DAILY@0600 11/20/23 11/20/23 History Metoprolol Tartrate [Lopressor] 12.5 mg PO BID@0800,1700 11/20/23 11/20/23 History Midodrine [ProAmatine] 5 mg PO TID@0800,1200,1700 11/20/23 11/20/23 History Multivitamins, Thera [Multivitamin 1 tab PO DAILY@0800 11/20/23 11/20/23 History (formulary)] Na Phos,M-B/Na Phos,Di-Ba [Fleet 133 ml RECTAL DAILY PRN 11/20/23 11/20/23 History Adult] Nicotine 14Mg/24Hr Patch [Habitrol] 1 patch TRANSDERM DAILY@0800 11/20/23 11/20/23 History Pantoprazole [Protonix] 40 mg PO DAILY@0600 11/20/23 11/20/23 History Potassium Chloride [Klor-Con 20 20 meq PO BID@0800,1700 11/20/23 11/20/23 History Packets] QUEtiapine [SEROquel] See Taper PO DIRECTED 11/20/23 11/20/23 History Thiamine [Vitamin B-1] 100 mg PO DAILY@0800 11/20/23 11/20/23 History bisacodyL [Dulcolax] 10 mg RECTAL DAILY PRN 11/20/23 11/20/23 History guaiFENesin [guaiFENesin ER] 600 mg PO Q12HR 11/20/23 11/20/23 History predniSONE 10 mg PO DAILY 11/20/23 11/20/23 History Allergies Allergy/AdvReac Type Severity Reaction Status Date / Time No Known Allergies Allergy Verified 11/20/23 12:24 Physical Exam Vitals: Vital Signs Temp Pulse Pulse Resp BP BP Pulse Ox 11/22/23 07:00 94 15 92/63 99 11/22/23 02:00 97.0 F L 86 18 99/62 92 L 11/21/23 20:00 97.6 F 67 18 99/63 96 11/21/23 19:57 80 11/21/23 19:46 76 11/21/23 17:21 82 11/21/23 17:07 80 11/21/23 14:00 84 17 11/21/23 13:04 84 17 155/63 93 L Intake and Output 11/21/23 11/22/23 11/22/23 22:59 06:59 14:59 Intake Total 360 360 Output Total 103 Balance 257 360 Intake: Oral 360 360 Output: Urine 103 Other: Voiding Method Toilet Urinal # Voids 3 Results - Lab Results Most recent lab results Calcium 8.8 mg/dL (8.7-10.3) 11/22/23 02:57 Magnesium 1.7 mg/dL (1.6-2.3) 11/20/23 10:50 11/22/23 02:57 11/22/23 02:57 Assessment and Plan Assessment: 1. Non-oligurci MARK suspect hemodynmiac ATN from Afib. Baseline creatinine 1.0 mg/dL. Presented 1.2-->1.7 today. UA hysaline casts with blood and RBC. 2. Hyperkalemia due to MARK. Improved with medical management. 3. A Fib with RVR 4. Hyponatremia. Plan: Check PVR rule out urinary retention Daily BMP, strict I/O's Continue with diuretics per cardiology Lokelma as needed for potassium which has improved If sodium drops further will then order urine studies.
[2023-11-22] MEDS: SODIUM CHLORIDE 0.9% 1,000 ML IV SCH (23:26)
[2023-11-22 23:42] LABS: Anisocytosis Slight; HGB 10.9 gm/dL (13.0-17.5); Hypochromasia Slight; MCH 29.5 pg (25.0-35.0); MCHC 32.2 g/dL (31.0-37.0); MCV 91.6 fL (80.0-100.0); Mean Platelet Volume 8.1; Platelet Count 247 k/uL (150-450); RBC 3.71 m/uL (4.30-5.90); RDW 16.2 % (11.5-15.5)
[2023-11-23 09:56] LABS: Basophils # (A) 0.02 X 10*3/uL (0.00-0.10); Basophils % (A) 0.5 %; Eosinophils # (A) 0.07 X 10*3/uL (0.04-0.35); Eosinophils % (A) 1.6 %; HGB 10.2 g/dL (13.0-17.0); Lymphocytes # (A) 0.89 X 10*3/uL (0.90-5.00); Lymphocytes % (A) 20.2 %; MCH 28.6 pg (27.0-32.0); MCHC 31.9 g/dL (32.0-37.0); MCV 89.6 FL (80.0-97.0); Mean Platelet Volume 11.6 FL (9.5-12.2); Monocytes # (A) 0.54 X 10*3/uL (0.20-1.00); Monocytes % (A) 12.2 %; NRBC Per 100 WBC 0 X 10*3/uL (0.00-0.01); Neutrophils # (A) 2.87 X 10*3/uL (1.80-7.70); Platelet Count 240 X 10*3/uL (140-440); RBC 3.57 X 10*6/uL (4.40-5.60); RDW 16.8 % (11.5-14.5); WBC 4.41 X 10*3/uL (4.50-10.00)
[2023-11-23 10:03] LABS: ALT 25 U/L (10-49); AST 32 U/L (14-35); Albumin 3.6 g/dL (3.8-4.9); Albumin/Globulin Ratio 1.29 Ratio (1.60-3.17); Alkaline Phosphatase 97 U/L (41-126); BUN/Creat Ratio 28.93 Ratio (12.00-20.00); Blood Urea Nitrogen 40.5 mg/dL (9.0-27.0); Carbon Dioxide 20.8 mmol/L (21.6-31.8); Chloride 103 mmol/L (96-109); Globulin 2.8 g/dL (1.6-3.3); Glucose 98 mg/dL (70-110); Potassium 4.4 mmol/L (3.5-5.5); Sodium 137 mmol/L (135-145); Total Bilirubin 0.7 mg/dL (0.3-1.2); Total Protein 6.4 g/dL (6.2-8.2)
--- NOTE | 2023-11-23 10:07 | P.PN ---
Subjective Progress Note Date: 11/23/23 Principal diagnosis: Left ureteral mass 73-year-old male with history of alcohol abuse, known ureteral left ureteral mass. Had an episode of gross hematuria yesterday, hemoglobin stable. His Eliquis is currently on hold., Urine is clear this morning Objective - Vital Signs Vital signs: Vital Signs Temp 96.7 F L 11/23/23 07:25 Pulse 82 11/23/23 07:25 Resp 16 11/23/23 07:25 BP 108/66 11/23/23 07:25 Pulse Ox 92 L 11/23/23 08:48 FiO2 Intake & Output 11/22/23 11/23/23 11/23/23 18:59 06:59 18:59 Intake Total 118 240 Output Total 2424 200 Balance -2306 -200 240 Intake: Oral 118 240 Output: Urine 2424 200 Other: Voiding Method Toilet Toilet Urinal Urinal # Voids 4 - Constitutional General appearance: Present: no acute distress - Gastrointestinal General gastrointestinal: Present: soft. Absent: distended, tenderness - Labs CBC & Chem 7: 11/23/23 02:40 11/22/23 02:57 Labs: Abnormal Lab Results - Last 24 Hours (Table) 11/22/23 11/22/23 11/23/23 Range/Units 02:57 23:24 02:40 WBC 4.41 L (4.50-10.00) X 10*3/uL RBC 3.71 L 3.57 L (4.30-5.90) m/uL Hgb 10.9 L 10.2 L (13.0-17.5) gm/dL Hct 34.0 L 32.0 L (39.0-53.0) % MCHC 31.9 L (32.0-37.0) g/dL RDW 16.2 H 16.8 H (11.5-15.5) % Lymphocytes # 0.89 L (0.90-5.00) X 10*3/uL Sodium 130 L (135-145) mmol/L Carbon Dioxide 19.4 L (21.6-31.8) mmol/L BUN 47.9 H (9.0-27.0) mg/dL Creatinine 1.7 H (0.6-1.5) mg/dL Est GFR (CKD-EPI) 43 L (>=60) BUN/Creatinine Ratio 28.18 H (12.00-20.00) Ratio Glucose 113 H (70-110) mg/dL AST 36 H (14-35) U/L Total Protein 6.1 L (6.2-8.2) g/dL Albumin 3.4 L (3.8-4.9) g/dL Albumin/Globulin Ratio 1.26 L (1.60-3.17) Ratio Assessment and Plan Assessment: 73-year-old male with a known 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 Had episode of gross hematuria yesterday, he is on Eliquis which is currently on hold. Will need a diagnostic cystoscopy with a left ureteroscopy in the OR to further evaluate. Patient will need medical and cardiac clearance prior to any further surgical intervention from urology given his history of alcohol abuse, and cardiomyopathy -Will tentatively schedule on November 24 for cystoscopy and a left ureteroscopy in the OR with possible biopsies pending medical and cardiology clearance -Continue to hold Eliquis
[2023-11-23] MEDS: MIDODRINE 5 MG TAB PO SCH (12:11)
--- NOTE | 2023-11-23 12:32 | P.PN ---
Subjective Progress Note Date: 11/23/23 Patient seen in follow-up for MARK. No new complaints. Vital signs are stable. General: No acute distress. HEENT: Head exam is unremarkable. LUNGS: No audible rhonchi or wheezes. HEART: Rate and Rhythm are regular. ABDOMEN: Nontender. EXTREMITITES: No edema. Objective - Vital Signs Vital signs: Vital Signs Temp 96.7 F L 11/23/23 07:25 Pulse 82 11/23/23 07:25 Resp 16 11/23/23 07:25 BP 108/66 11/23/23 07:25 Pulse Ox 92 L 11/23/23 08:48 FiO2 Intake & Output 11/22/23 11/23/23 11/23/23 18:59 06:59 18:59 Intake Total 118 240 Output Total 2424 200 Balance -2306 -200 240 Intake: Oral 118 240 Output: Urine 2424 200 Other: Voiding Method Toilet Toilet Urinal Urinal # Voids 4 - Labs CBC & Chem 7: 11/23/23 02:40 11/23/23 02:40 Labs: Abnormal Lab Results - Last 24 Hours (Table) 11/22/23 11/23/23 11/23/23 Range/Units 23:24 02:40 02:40 WBC 4.41 L (4.50-10.00) X 10*3/uL RBC 3.71 L 3.57 L (4.30-5.90) m/uL Hgb 10.9 L 10.2 L (13.0-17.5) gm/dL Hct 34.0 L 32.0 L (39.0-53.0) % MCHC 31.9 L (32.0-37.0) g/dL RDW 16.2 H 16.8 H (11.5-15.5) % Lymphocytes # 0.89 L (0.90-5.00) X 10*3/uL Carbon Dioxide 20.8 L (21.6-31.8) mmol/L Anion Gap 13.20 H (4.00-12.00) mmol/L BUN 40.5 H (9.0-27.0) mg/dL Est GFR (CKD-EPI) 54 L (>=60) BUN/Creatinine Ratio 28.93 H (12.00-20.00) Ratio Albumin 3.6 L (3.8-4.9) g/dL Albumin/Globulin Ratio 1.29 L (1.60-3.17) Ratio Assessment and Plan Assessment: 1. Non-oligurci MARK suspect hemodynmiac ATN from Afib. Baseline creatinine 1.0 mg/dL. Presented 1.2-->1.7-->1.4 today. UA hysaline casts with blood and RBC. 2. Hyperkalemia due to MARK. Improved with medical management. 3. A Fib with RVR 4. Hyponatremia improved. Plan: PVR negative for UR Daily BMP, strict I/O's Continue with diuretics per cardiology
--- NOTE | 2023-11-23 13:40 | P.PN ---
Subjective Progress Note Date: 11/23/23 The patient is a 73-year-old male who is currently admitted to the hospital with atrial fibrillation and congestive heart failure. Cardiology had signed off on this patient as he was going through alcohol withdrawal syndrome and there was no further recommendations. We have been asked to clear him to undergo removal of left ureteral mass. GENERAL: Ill-appearing, malnourished and in no acute distress. NECK: Supple without JVD or thyromegaly. LUNGS: Breath sounds diminished to auscultation bilaterally. Respiration equal and unlabored. No wheezes, rales or rhonchi. HEART: Irregular rate and rhythm without murmurs, rubs or gallops. S1 and S2 heard. EXTREMITIES: Normal range of motion, no edema. No clubbing or cyanosis. Peripheral pulses intact and strong. TELEMETRY: Rate controlled atrial fibrillation LABS: WBC 4.4, hemoglobin 10.2, hematocrit 32.0, platelet 240, sodium 137, potassium 4.4, BUN 40, creatinine 1.4, AST 32, ALT 25 IMPRESSION: Preoperative clearance Persistent atrial fibrillation Severe cardiomyopathy, global Congestive heart failure, systolic History of chronic kidney disease Moderate to severe biatrial enlargement History of CVA EtOH abuse PLAN: Patient is high risk for proposed surgery Recommend waiting several days for the patient to improve with his alcohol withdrawal Anticoagulation currently being held for proposed procedure Recommend Lovenox with the patient's elevated Jorge A Vasc Score, with it being held 12 hours prior to the surgery I am dictating on behalf of Dr Ja Duff's history/physical and assessment/plan. Objective - Vital Signs Vital signs: Vital Signs Temp 96.7 F L 11/23/23 07:25 Pulse 86 11/23/23 12:11 Resp 16 11/23/23 07:25 BP 99/71 11/23/23 12:12 Pulse Ox 92 L 11/23/23 08:48 FiO2 Intake & Output 11/22/23 11/23/23 11/23/23 18:59 06:59 18:59 Intake Total 118 240 Output Total 2424 200 300 Balance -2306 -200 -60 Intake: Oral 118 240 Output: Urine 2424 200 300 Other: Voiding Method Toilet Toilet Urinal Urinal # Voids 4 - Labs CBC & Chem 7: 11/23/23 02:40 11/23/23 02:40 Labs: Abnormal Lab Results - Last 24 Hours (Table) 11/22/23 11/23/23 11/23/23 Range/Units 23:24 02:40 02:40 WBC 4.41 L (4.50-10.00) X 10*3/uL RBC 3.71 L 3.57 L (4.30-5.90) m/uL Hgb 10.9 L 10.2 L (13.0-17.5) gm/dL Hct 34.0 L 32.0 L (39.0-53.0) % MCHC 31.9 L (32.0-37.0) g/dL RDW 16.2 H 16.8 H (11.5-15.5) % Lymphocytes # 0.89 L (0.90-5.00) X 10*3/uL Carbon Dioxide 20.8 L (21.6-31.8) mmol/L Anion Gap 13.20 H (4.00-12.00) mmol/L BUN 40.5 H (9.0-27.0) mg/dL Est GFR (CKD-EPI) 54 L (>=60) BUN/Creatinine Ratio 28.93 H (12.00-20.00) Ratio Albumin 3.6 L (3.8-4.9) g/dL Albumin/Globulin Ratio 1.29 L (1.60-3.17) Ratio
--- NOTE | 2023-11-23 15:14 | P.PN ---
Subjective Progress Note Date: 11/23/23 Interval History: 73-year-old with active medical history of chronic alcoholism, A-fib with RVR, history of CVA/TIA, hypertension, previous history of myocardial infarction, GERD, chronic anemia, who was transferred to [facility] On 11/12/2023 after being in the hospital for 2 weeks with main diagnosis at the time of altered ental status, metabolic acidosis, hypoxic respiratory failure, acute alcohol withdrawal, systolic congestive heart failure with ejection fraction of 20 percentile most likely from alcoholic cardiomyopathy, again pancytopenia and 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 Also had left sided large pleural effusion. With stage II ulcer on the left buttocks with unstageable ulcer on the right bu ttocks at the time. The patient did not do well in [facility] at the time and continue not to respond that well been anxious all the time still having some sign and symptom of alcohol withdrawal with quite a bit altered mental status confusion and such. 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 Hospital again: Patient to be in A- fib with RVR with pulse rate of 130 beats per minutes. Continue to have significant confusion and altered mental status. Was giving Cardizem initially and initiate his metoprolol and claimed that his pulse rate had responded decide to keep him in the hospital to see cardiology for maybe a Holter management avoid having A-fib happening all the time. He become quite bit confused and agitated ended up having CAT scan of the brain without contrast showed scattered small area of cortical infarct of the lateral left frontal lobe with right occipital lobe as well and biparietal subcortical white matter change.. His laboratory value with CBC CMP shows mildly elevated bilirubin proBNP was 16,900 with troponin of 0.026 UA is currently positive for RBC some WBC toxicology and drug screen along with respiratory culture were negative. 09/20/2023: The patient is doing much better with A-fib with RVR but continue to have significant sign and symptom of cardiomyopathy worsening symptom of encephalopathy as well related to his alcoholism slightly with a challenge in his kidney function and potassium his creatinine is up to 1.8 with GFR down to 40 potassium was 6.1 we will use 1 dose of Lokelma to bring his potassium down patient will be seen nephrology in consultation in the meanwhile continue current management for his A-fib and current problem initially the plan was probably to initiate patient on Entresto better beta-geovani spironolactone with furosemide and he was taking off potassium supplement completely and patient is declining more including decline in his mental status and encephalopathy is more than expected. Again has a matter of the large side with urethral mass which is causing mild obstructive uropathy on the left side will consult urology for possible need for intervention of any type. Initial plan with the emergency room to have patient hospitalized stabilize A-fib and send him back to [facility]. Patient is still not stable in any aspect slightly but worsening complexity of multiple problem we will keep him in the hospital for now try to have a better solution and management for his A-fib, cardiomyopathy, encephalopathy, acute kidney injury with kidney failure and ureteral mass before returning to [facility] patient is still under the effect of worsening mental status especially with his alcohol withdrawal despite not drinking for period of time he still on delirium tremor watch with CIWA still on lorazepam on as-needed basis. 11/22/2023--- Heart rate is better 82 today. Saturating 96% on 2 L. WBCs 4.67, hemoglobin 9.2, platelet 249. Sodium is slightly low 130 today, potassium is normal 4.3. BUN 47, creatinine 1.7 same as yesterday. Patient is alert and oriented x 3, hard of hearing. Sitter at bedside. Was initially agitated, currently calm and cooperative. Cardiology following, recommended to give midodrine only for systolic blood pressure less than 80. Telemetry showing rate controlled atrial fibrillation. Remains on beta-geovani and digoxin for rate control. 11/23/23--patient was seen and examined today. Patient feeling better today. More alert and oriented today, mild confusion. Hard of hearing. Sitter at bedside. Initially had episode of agitation, calm and cooperative currently, required Ativan earlier today. Afebrile, heart rate 88, respiratory rate 16, s aturating 97% on room air, blood pressure 113/83. WBCs 4.4, hemoglobin 10.2, platelet 240. Sodium 137 potassium 4.4 BUN 40.5, creatinine down to 1.4. Urology was initially planning for cystoscopy coming week, per cardiology patient high risk of proposed surgery. Cardiology recommended Lovenox. Assessment and plan: _A-fib with RVR: Heart rate is more controlled, currently on Lopressor 25 mg 4 times daily, digoxin 125 mcg, Eliquis. Cardiology following. _Severe cardiomyopathy most likely alcoholic type with ejection fraction of 20 percentile patient still is showing signs and symptoms of cardiomyopathy sadly with the blood pressure is not tight. Could not do Entresto for now because of acute kidney injury spironolactone was started beside furosemide. May be will decide to the smaller dose of ARB if patient can tolerate it. _Hyperkalemia: Potassium is up to 6.0 Lokelma 1 dose was started patient will be seen nephrology. _Acute kidney injury which most likely secondary to acute tubular necrosis plus slight left-sided obstructive uropathy from the mass in the rectal area kidney function slightly bit worse --- nephrology and urology consulted. 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 _History of alcoholism with quite alcohol withdrawal and alcohol encephalopathy, continue current management full workup last time including scan and MRI of the brain was done the patient is not acting any different than before no new finding but will continue current management at some point probably patient might benefit from some of the active dementia medication like donepezil or rivastigmine. Will keep patient on smaller dose of benzodiazepine to help him against withdrawal at this point. _Hypertension: Blood pressure still quite bit low with the current symptoms he is on metoprolol only to make it more useful having to introduce Entresto patient probably can benefit from adding midodrine 5 mg twice a day to raise his blood pressure up little bit and prepare for keeping him on more medication to help his cardiomyopathy. _Alcoholic encephalopathy: With worsening symptoms lately the patient again might benefit eventually from adding lactulose and probably rifaximin. Alisson ine, folic acid. Check ammonia. _History of macrocytic anemia: Mostly related to alcoholism and B12 with folic acid deficiency, continue folic acid along with thiamine and B12 hemoglobin is much better. _Anticoagulation: Initially on Eliquis, cardiology recommended to switch to Lovenox. _Stage III chronic kidney disease mostly stage IIIa and has slight improvement his GFR remained at 59 continue hydration and supportive care. _Recurrent pleural effusion: Slightly bit better at this time no need for thoracentesis. _Severe GERD: Will continue pantoprazole 40 mg daily. _Hypothyroidism: Continue levothyroxine 200 mcg daily. Discussion: A-fib is much better but patient is with hyperkalemia and acute kidney injury with worsening encephalopathy will continue to be hospitalized his admission was switched to regular admit we will continue watching him on the weekend continue to watch for any alcohol withdrawal or any hepatic encephalopathy symptoms. Patient to be seen nephrology, urology and cardiology. PHYSICAL EXAMINATION: GENERAL: The patient is A&O x3, NAD. Mild confusion. HEENT: EOMI, Sclerae anicteric, Moist Mucous membranes Neck: Supple, Non tender, No JVD PULMONARY: Equal breath souds B/L, No wheezing, No crackles. CARDIOVASCULAR: S1, S2 present. No murmurs, rubs, or gallops. ABDOMEN: Soft, nontender, nondistended, normoactive bowel sounds. No guarding or rebound tenderness. MUSCULOSKELETAL: No edema, No cyanosis. No clubbing. Normal ROM. Intact peripheral pulses. EXTREMITIES: No cyanosis, clubbing, or pedal edema. NEUROLOGICAL: CN 2-12 grossly intact. No FND Skin: No Rash REVIEW OF SYSTEMS: CONSTITUTIONAL: No fever or chills. CARDIOVASCULAR: No chest pain, palpitations or syncope. PULMONARY: No shortness of breath, no cough, sore throat. GASTROINTESTINAL: No nausea, vomiting, diarrhea, abdominal pain. : No Dysuria, urgency, frequency. Extremities: No edema. NEUROLOGICAL: No headaches, no weakness, or numbness Dictation was produced using [employer] dictation software. please excuse any grammatical, word or spelling errors. Objective - Vital Signs Vital signs: Vital Signs Temp 98.2 F 11/23/23 14:55 Pulse 88 11/23/23 14:55 Resp 16 11/23/23 14:55 BP 113/83 11/23/23 14:55 Pulse Ox 97 11/23/23 14:55 FiO2 Intake & Output 11/22/23 11/23/23 11/23/23 18:59 06:59 18:59 Intake Total 118 358 Output Total 2424 200 500 Balance -2306 -200 -142 Intake: Oral 118 358 Output: Urine 2424 200 500 Other: Voiding Method Toilet Toilet Urinal Urinal # Voids 4 # Bowel Movements 1 - Labs CBC & Chem 7: 11/23/23 02:40 11/23/23 02:40 Labs: Abnormal Lab Results - Last 24 Hours (Table) 11/22/23 11/23/23 11/23/23 Range/Units 23:24 02:40 02:40 WBC 4.41 L (4.50-10.00) X 10*3/uL RBC 3.71 L 3.57 L (4.30-5.90) m/uL Hgb 10.9 L 10.2 L (13.0-17.5) gm/dL Hct 34.0 L 32.0 L (39.0-53.0) % MCHC 31.9 L (32.0-37.0) g/dL RDW 16.2 H 16.8 H (11.5-15.5) % Lymphocytes # 0.89 L (0.90-5.00) X 10*3/uL Carbon Dioxide 20.8 L (21.6-31.8) mmol/L Anion Gap 13.20 H (4.00-12.00) mmol/L BUN 40.5 H (9.0-27.0) mg/dL Est GFR (CKD-EPI) 54 L (>=60) BUN/Creatinine Ratio 28.93 H (12.00-20.00) Ratio Albumin 3.6 L (3.8-4.9) g/dL Albumin/Globulin Ratio 1.29 L (1.60-3.17) Ratio
[2023-11-23] MEDS: ENOXAPARIN 80 MG/0.8 ML SYRINGE SQ SCH (21:00)
[2023-11-23] MEDS: MELATONIN 3 MG TABLET PO PRN (21:50)
[2023-11-24 08:42] LABS: Basophils # (A) 0.03 X 10*3/uL (0.00-0.10); Basophils % (A) 0.7 %; Eosinophils # (A) 0.21 X 10*3/uL (0.04-0.35); Eosinophils % (A) 4.6 %; HCT 31.6 % (39.6-50.0); Lymphocytes # (A) 1.17 X 10*3/uL (0.90-5.00); Lymphocytes % (A) 25.5 %; MCH 28.2 pg (27.0-32.0); MCHC 31.6 g/dL (32.0-37.0); MCV 89.3 FL (80.0-97.0); Mean Platelet Volume 11.2 FL (9.5-12.2); Monocytes # (A) 0.46 X 10*3/uL (0.20-1.00); NRBC Per 100 WBC 0 X 10*3/uL (0.00-0.01); Neutrophils % (A) 58.8 %; Platelet Count 226 X 10*3/uL (140-440); RBC 3.54 X 10*6/uL (4.40-5.60); RDW 16.7 % (11.5-14.5); WBC 4.59 X 10*3/uL (4.50-10.00)
[2023-11-24 09:07] LABS: BUN/Creat Ratio 24.08 Ratio (12.00-20.00); Blood Urea Nitrogen 31.3 mg/dL (9.0-27.0); Calcium 8.7 mg/dL (8.7-10.3); Carbon Dioxide 22.9 mmol/L (21.6-31.8); Chloride 105 mmol/L (96-109); Glucose 85 mg/dL (70-110); Potassium 3.9 mmol/L (3.5-5.5); Sodium 138 mmol/L (135-145)
--- NOTE | 2023-11-24 09:33 | P.PN ---
Subjective Patient seen at bedside. No significant overnight events. Nephrology consulted for MARK. Objective - Vital Signs Vital signs: Vital Signs Temp 98.2 F 11/24/23 07:00 Pulse 62 11/24/23 07:00 Resp 16 11/24/23 07:00 BP 103/66 11/24/23 07:00 Pulse Ox 96 11/24/23 08:53 FiO2 Intake & Output 11/23/23 11/24/23 11/24/23 18:59 06:59 18:59 Intake Total 476 Output Total 500 425 Balance - Intake: Oral 476 Output: Urine 500 425 Other: Voiding Method Toilet Urinal Urinal # Bowel Movements 1 - Exam patient is drowsy (status post phenobarbital), comfortable, alert oriented 3. No acute distress. Examination of the heart S1 and S2 Examination of the lungs bilateral breath sounds are heard Abdomen is soft nontender Examination of lower extremities no edema - Labs CBC & Chem 7: 11/24/23 02:53 11/24/23 02:53 Labs: Abnormal Lab Results - Last 24 Hours (Table) 11/23/23 11/23/23 11/24/23 Range/Units 02:40 02:40 02:53 WBC 4.41 L (4.50-10.00) X 10*3/uL RBC 3.57 L 3.54 L (4.40-5.60) X 10*6/uL Hgb 10.2 L 10.0 L (13.0-17.0) g/dL Hct 32.0 L 31.6 L (39.6-50.0) % MCHC 31.9 L 31.6 L (32.0-37.0) g/dL RDW 16.8 H 16.7 H (11.5-14.5) % Lymphocytes # 0.89 L (0.90-5.00) X 10*3/uL Carbon Dioxide 20.8 L (21.6-31.8) mmol/L Anion Gap 13.20 H (4.00-12.00) mmol/L BUN 40.5 H (9.0-27.0) mg/dL Est GFR (CKD-EPI) 54 L (>=60) BUN/Creatinine Ratio 28.93 H (12.00-20.00) Ratio Albumin 3.6 L (3.8-4.9) g/dL Albumin/Globulin Ratio 1.29 L (1.60-3.17) Ratio 11/23/ Range/Units 02:53 WBC (4.50-10.00) X 10*3/uL RBC (4.40-5.60) X 10*6/uL Hgb (13.0-17.0) g/dL Hct (39.6-50.0) % MCHC (32.0-37.0) g/dL RDW (11.5-14.5) % Lymphocytes # (0.90-5.00) X 10*3/uL Carbon Dioxide (21.6-31.8) mmol/L Anion Gap (4.00-12.00) mmol/L BUN 31.3 H (9.0-27.0) mg/dL Est GFR (CKD-EPI) 59 L (>=60) BUN/Creatinine Ratio 24.08 H (12.00-20.00) Ratio Albumin (3.8-4.9) g/dL Albumin/Globulin Ratio (1.60-3.17) Ratio Assessment and Plan Assessment: 1. Non-oligurci MARK suspect hemodynmiac ATN from Afib. Baseline creatinine 1.0 mg/dL. Presented 1.2-->1.7-->1.4--> 1.3 today. UA hysaline casts with blood and RBC. Improved. 2. Hyperkalemia due to MARK. Improved with medical management. 3. A Fib with RVR 4. Hyponatremia, improved. 5. Chronic CHF EF 20% 6. Left ureteral pelvic brim ureteral wall thickening/mass - urology following. cysto pending. Plan: Postvoid residual negative for urinary retention. Daily BMP, strict I/O's Ordered chest x-ray for the morning, chest x-ray on admission showed bilateral pleural effusions and patient has been on fluids since admission. Discontinued IV fluids, will consider restarting if creatinine starts to increase, patient has been on fluids since admission Avoid nephrotoxins. Continue lasix for now. I have seen and examined the patient with resident. Agree with A&P as written.
[2023-11-24] MEDS: PHENobarbitaL 16.2 MG TAB PO SCH (09:44)
--- NOTE | 2023-11-24 23:20 | P.PN ---
Subjective Progress Note Date: 11/24/23 HISTORY OF PRESENT ILLNESS: 73-year-old with active medical history of chronic alcoholism, A-fib with RVR, history of CVA/TIA, hypertension, previous history of myocardial infarction, GERD, chronic anemia, who was transferred to [facility] On 11/12/2023 after being in the hospital for 2 weeks with main diagnosis at the time of altered ental status, metabolic acidosis, hypoxic respiratory failure, acute alcohol withdrawal, systolic congestive heart failure with ejection fraction of 20 percentile most likely from alcoholic cardiomyopathy, again pancytopenia and 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 Also had left sided large pleural effusion. With stage II ulcer on the left buttocks with unstageable ulcer on the right buttocks at the time. The patient did not do well in [facility] at the time and continue not to respond that well been anxious all the time still having some sign and symptom of alcohol withdrawal with quite a bit altered mental status confusion and such. 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 Hospital again: Patient to be in A- fib with RVR with pulse rate of 130 beats per minutes. Continue to have significant confusion and altered mental status. Was giving Cardizem initially and initiate his metoprolol and claimed that his pulse rate had responded decide to keep him in the hospital to see cardiology for maybe a Holter management avoid having A-fib happening all the time. He become quite bit confused and agitated ended up having CAT scan of the brain without contrast showed scattered small area of cortical infarct of the lateral left frontal lobe with right occipital lobe as well and biparietal subcortical white matter change.. His laboratory value with CBC CMP shows mildly elevated bilirubin proBNP was 16,900 with troponin of 0.026 UA is currently positive for RBC some WBC toxicology and drug screen along with respiratory culture were negative. 09/20/2023: The patient is doing much better with A-fib with RVR but continue to have significant sign and symptom of cardiomyopathy worsening symptom of encephalopathy as well related to his alcoholism slightly with a challenge in his kidney function and potassium his creatinine is up to 1.8 with GFR down to 40 potassium was 6.1 we will use 1 dose of Lokelma to bring his potassium down patient will be seen nephrology in consultation in the meanwhile continue current management for his A-fib and current problem initially the plan was probably to initiate patient on Entresto better beta-geovani spironolactone with furosemide and he was taking off potassium supplement completely and patient is declining more including decline in his mental status and encephalopathy is more than expected. Again has a matter of the large side with urethral mass which is causing mild o bstructive uropathy on the left side will consult urology for possible need for intervention of any type. Initial plan with the emergency room to have patient hospitalized stabilize A-fib and send him back to [facility]. Patient is still not stable in any aspect slightly but worsening complexity of multiple problem we will keep him in the hospital for now try to have a better solution and management for his A-fib, cardiomyopathy, encephalopathy, acute kidney injury with kidney failure and ureteral mass before returning to [facility] patient is still under the effect of worsening mental status especially with his alcohol withdrawal despite not drinking for period of time he still on delirium tremor watch with CIWA still on lorazepam on as-needed basis. 09/23/2023: Patient is still significantly confused and agitated, apparently ended up seen neurology and the plan probably to go for intervention at least cystoscopy with possible biopsy versus resection this will be taking place today. In regard to delirium, and withdrawal symptoms we will start patient on p henobarbital 3 times a day regularly to see if he can control his symptoms. He still confused, still agitated, still able to ambulate but required help. For the severity of hyperkalemia Lokelma was used the patient is still in acute kidney injury but kidney function has improved from 2 days ago creatinine down to 1.3 with GFR at 1.3. White blood cell hemoglobin are stable with no sign of anemia at this point. REVIEW OF SYSTEMS: CONSTITUTIONAL: Well-developed confused in no acute respiratory distress EYES: No icterus sclerae, no conjunctivitis. EARS, NOSE, MOUTH, THROAT, and FACE: No sore throat, lymphadenopathy, carotid bruits or deformity. RESPIRATORY: No SOB cough or wheezes. CARDIOVASCULAR: Positive. Currently palpitation. GASTROINTESTINAL: No Abd pain, Nausea or vomiting, no Diarrhea or constipation, No GI Bleed, no distention or masses. GENITOURINARY: Still have hematuria. INTEGUMENT/BREAST: Negative for any muscular injury with mild osteoarthritis.. HEMATOLOGIC/LYMPHATIC: Negative for bleed or purpura. MUSCULOSKELTAL: Negative for Myalgia or arthralgia. NEURLOGICAL: Quite bit confused alert moving all his 4 extremity. BEHAVIORAL/PSYCH: Quite bit anxious and confused. ENDOCRINE: Negative. PHYSICAL EXAMINATION: General Appearance: Alert, confused no acute respiratory distress. Neck HEENT: Supple, no lymphadenopathy, no thyroid enlargement, no carotid bruits. Lungs: Decreased breath sound bilaterally fine rhonchi no crackles or wheezes. Chest Wall: Decreased expansion with deep inspiration no tenderness and no deformity was found on exam, no costochondral pain or discomfort. Heart: Irregular rate and rhythm, S1, S2 positive S3 positive systolic murmur. Back: Symmetric, no curvature, ROM normal, no CVA tenderness. Abdomen: Soft, non-tender, bowel sounds active all four quadrants, no masses, no organomegaly. Extremities: Extremities normal, atraumatic, no cyanosis positive edema Pulses: 2+ and symmetric. Skin: Skin color, texture, tugor normal, no rashes or lesions. Neurologic: Alert confused, cranial nerves II through XII intact, positive generalized weakness with severe abnormal balance and gait. ASSESSMENT AND PLAN: _A-fib with RVR: Still not well-controlled, he was on metoprolol tartrate 12.5 mg twice a day should probably titrate dose up to 25 mg twice a day, Cardiology had seen patient and believed adding digoxin was a good choice no need for any amiodarone or any other management at this point. Cardiology apparently I agree with the current management treatment. _Severe cardiomyopathy most likely alcoholic type with ejection fraction of 20 percentile patient still is showing signs and symptoms of cardiomyopathy sadly with the blood pressure is not tight. Could not do Entresto for now because of acute kidney injury spironolactone was started beside furosemide. May be will decide to the smaller dose of ARB if patient can tolerate it. _Hyperkalemia: Was treated with Lokelma has been doing much better so far. _Acute kidney injury which most likely secondary to acute tubular necrosis plus slight left-sided obstructive uropathy from the mass in the rectal area kidney function slightly bit worse will consult nephrology and urology the patient will have probably another ultrasound of the kidney. No need for dialysis and kidney function is much better. 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 _History of alcoholism with quite alcohol withdrawal and alcohol encephalopathy, will continue multivitamin along with thiamine folic acid and B12 patient still seen neurology regularly _Hypertension: Blood pressure still quite bit low with the current symptoms he is on metoprolol only to make it more useful having to introduce Entresto ray ent probably can benefit from adding midodrine 5 mg twice a day to raise his blood pressure up little bit and prepare for keeping him on more medication to help his cardiomyopathy. _Alcoholic encephalopathy: With worsening symptoms lately the patient again might benefit eventually from adding lactulose and probably rifampin. _History of macrocytic anemia: Mostly related to alcoholism and B12 with folic acid deficiency, continue folic acid along with thiamine and B12 hemoglobin is much better. _Anticoagulation: Remain on Eliquis 5 mg twice a day. _Stage III chronic kidney disease mostly stage IIIa and has slight improvement his GFR remained at 59 continue hydration and supportive care. _Recurrent pleural effusion: Slightly bit better at this time no need for thoracentesis. _Severe GERD: Will continue pantoprazole 40 mg daily. _Hypothyroidism: Continue levothyroxine 200 mcg daily. Discussion: Symptoms are slightly better, still confused and mildly agitated, may be going for intervention today with urology for cystoscopy and biopsy possible resection if all goes well patient is stable Discharge probably tomorrow with on Friday or Friday. Objective - Vital Signs Vital signs: Vital Signs Temp 98.0 F 11/23/23 20:00 Pulse 74 11/24/23 02:00 Resp 16 11/24/23 02:00 BP 115/77 11/24/23 02:00 Pulse Ox 97 11/23/23 14:55 FiO2 Intake & Output 11/23/23 11/24/23 11/24/23 18:59 06:59 18:59 Intake Total 476 Output Total 500 425 Balance -24 -425 Intake: Oral 476 Output: Urine 500 425 Other: Voiding Method Toilet Urinal Urinal # Bowel Movements 1 - Labs CBC & Chem 7: 11/24/23 02:53 11/24/23 02:53 Labs: Abnormal Lab Results - Last 24 Hours (Table) 11/23/23 11/23/23 Range/Units 02:40 02:40 WBC 4.41 L (4.50-10.00) X 10*3/uL RBC 3.57 L (4.40-5.60) X 10*6/uL Hgb 10.2 L (13.0-17.0) g/dL Hct 32.0 L (39.6-50.0) % MCHC 31.9 L (32.0-37.0) g/dL RDW 16.8 H (11.5-14.5) % Lymphocytes # 0.89 L (0.90-5.00) X 10*3/uL Carbon Dioxide 20.8 L (21.6-31.8) mmol/L Anion Gap 13.20 H (4.00-12.00) mmol/L BUN 40.5 H (9.0-27.0) mg/dL Est GFR (CKD-EPI) 54 L (>=60) BUN/Creatinine Ratio 28.93 H (12.00-20.00) Ratio Albumin 3.6 L (3.8-4.9) g/dL Albumin/Globulin Ratio 1.29 L (1.60-3.17) Ratio
--- NOTE | 2023-11-25 07:36 | XR ---
EXAMINATION TYPE: XR chest 1V portable DATE OF EXAM: 11/25/2023 COMPARISON: 11/20/2023 HISTORY: Shortness of breath TECHNIQUE: Single frontal view of the chest is obtained. FINDINGS: Interstitial pattern with bilateral consolidation and small effusion greater on the left. Heart is enlarged. No pneumothorax. Osteopenia and degenerative change of the spine. IMPRESSION: Bilateral consolidation and pleural effusion correlate for CHF otherwise consider pneumo shannon. [facility], , 11/25/2023 7:34 AM
[2023-11-25 08:52] LABS: HCT 32.2 % (39.6-50.0); HGB 10.2 g/dL (13.0-17.0); MCH 28.1 pg (27.0-32.0); MCHC 31.7 g/dL (32.0-37.0); MCV 88.7 FL (80.0-97.0); Mean Platelet Volume 10.5 FL (9.5-12.2); NRBC Per 100 WBC 0 X 10*3/uL (0.00-0.01); Platelet Count 210 X 10*3/uL (140-440); RBC 3.63 X 10*6/uL (4.40-5.60); RDW 16.6 % (11.5-14.5)
[2023-11-25 09:17] LABS: ALT 19 U/L (10-49); AST 21 U/L (14-35); Albumin 3.2 g/dL (3.8-4.9); Albumin/Globulin Ratio 1.28 Ratio (1.60-3.17); Alkaline Phosphatase 84 U/L (41-126); BUN/Creat Ratio 26.89 Ratio (12.00-20.00); Blood Urea Nitrogen 24.2 mg/dL (9.0-27.0); Calcium 8.3 mg/dL (8.7-10.3); Chloride 107 mmol/L (96-109); Globulin 2.5 g/dL (1.6-3.3); Glucose 102 mg/dL (70-110); Potassium 3.7 mmol/L (3.5-5.5); Sodium 139 mmol/L (135-145); Total Bilirubin 0.5 mg/dL (0.3-1.2); Total Protein 5.7 g/dL (6.2-8.2)
--- NOTE | 2023-11-25 09:31 | P.PN ---
Subjective Patient seen at bedside. Patient had a run of tachycardia overnight, cardio was consulted. Serum creatinine decreased from 1.3 to 0.9 today. Potassium decreased from 3.9 to 3.7 today Objective - Vital Signs Vital signs: Vital Signs Temp 97.6 F 11/25/23 07:00 Pulse 76 11/25/23 08:40 Resp 18 11/25/23 07:00 BP 114/62 11/25/23 07:00 Pulse Ox 98 11/25/23 08:40 FiO2 Intake & Output 11/24/23 11/25/23 11/25/23 18:59 06:59 18:59 Intake Total 118 1520 Output Total 450 725 Balance -332 795 Intake: Oral 118 1520 Output: Urine 450 725 Other: Voiding Method Urinal Urinal # Voids 1 # Bowel Movements 1 - Exam patient is awake, comfortable, alert oriented 3. No acute distress. Examination of the heart S1 and S2 Examination of the lungs bilateral breath sounds are heard Abdomen is soft nontender Examination of lower extremities no edema - Labs CBC & Chem 7: 11/25/23 03:04 11/25/23 03:04 Labs: Abnormal Lab Results - Last 24 Hours (Table) 11/25/23 11/25/23 Range/Units 03:04 03:04 WBC 4.40 L (4.50-10.00) X 10*3/uL RBC 3.63 L (4.40-5.60) X 10*6/uL Hgb 10.2 L (13.0-17.0) g/dL Hct 32.2 L (39.6-50.0) % MCHC 31.7 L (32.0-37.0) g/dL RDW 16.6 H (11.5-14.5) % BUN/Creatinine Ratio 26.89 H (12.00-20.00) Ratio Calcium 8.3 L (8.7-10.3) mg/dL Total Protein 5.7 L (6.2-8.2) g/dL Albumin 3.2 L (3.8-4.9) g/dL Albumin/Globulin Ratio 1.28 L (1.60-3.17) Ratio Assessment and Plan Assessment: 1. Non-oligurci MARK suspect hemodynmiac ATN from Af[facility]. Baseline creatinine 1.0 mg/dL. Presented 1.2-->1.7-->1.4--> 1.3--> 0.9 today. UA hysaline casts with blood and RBC. Improved. 2. Hyperkalemia due to MARK. Improved with medical management. 3. A Fib with RVR 4. Hyponatremia, improved. 5. Chronic CHF EF 20% 6. Left ureteral pelvic brim ureteral wall thickening/mass - urology following. TURP postponed after patient had run of tachycardia last night for which cardiology has been consulted. 7. Bilateral pleural effusions since admission, patient has been on fluids since admission. Plan: Postvoid residual negative for urinary retention. Daily BMP, strict I/O's Chest x-ray shows bilateral consolidation and pleural effusion correlate for CHF otherwise consider pneumonia. Patient has been on fluids since admission, with improved renal function will continue to hold fluids and continue Lasix given results of chest x-ray. Discontinued IV fluids, will consider restarting if creatinine starts to increase, patient has been on fluids since admission Avoid nephrotoxins. Continue lasix for now. Patient is pending cardiac clearance for TURP I have seen and examined the patient with resident and agree with A&P as written. Replace potassium and check magnesium level.
--- NOTE | 2023-11-25 11:26 | P.PN ---
Subjective Progress Note Date: 11/25/23 No acute overnight event, denies any gross hematuria or flank pain. Hemoglobin is stable, creatinine is down to 0.9 Objective - Vital Signs Vital signs: Vital Signs Temp 97.6 F 11/25/23 07:00 Pulse 76 11/25/23 08:40 Resp 18 11/25/23 07:00 BP 114/62 11/25/23 07:00 Pulse Ox 98 11/25/23 08:40 FiO2 Intake & Output 11/24/23 11/25/23 11/25/23 18:59 06:59 18:59 Intake Total 118 1520 118 Output Total 450 725 Balance -332 795 118 Intake: Oral 118 1520 118 Output: Urine 450 725 Other: Voiding Method Urinal Urinal # Voids 1 # Bowel Movements 1 - Constitutional General appearance: Present: no acute distress - Gastrointestinal General gastrointestinal: Present: soft. Absent: distended, tenderness - Labs CBC & Chem 7: 11/25/23 03:04 11/25/23 03:04 Labs: Abnormal Lab Results - Last 24 Hours (Table) 11/25/23 11/25/23 Range/Units 03:04 03:04 WBC 4.40 L (4.50-10.00) X 10*3/uL RBC 3.63 L (4.40-5.60) X 10*6/uL Hgb 10.2 L (13.0-17.0) g/dL Hct 32.2 L (39.6-50.0) % MCHC 31.7 L (32.0-37.0) g/dL RDW 16.6 H (11.5-14.5) % BUN/Creatinine Ratio 26.89 H (12.00-20.00) Ratio Calcium 8.3 L (8.7-10.3) mg/dL Total Protein 5.7 L (6.2-8.2) g/dL Albumin 3.2 L (3.8-4.9) g/dL Albumin/Globulin Ratio 1.28 L (1.60-3.17) Ratio Assessment and Plan Assessment: 73-year-old male with a known 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 Had episode of gross hematuria on Eliquis. Hematuria has resolved now after discontinuation of Eliquis. Patient is a very high surgical risk candidate given his underlying cardiomyopathy. Discussed with Dr. Duff this morning he was deemed a very high surgical candidate and he recommended holding on intervention at this time and considering a later on this week. At this point we will hold off on doing a diagnostic cystoscopy and left ureteroscopy at this time, we will reassess later this week.
--- NOTE | 2023-11-25 14:39 | P.PN ---
Subjective HISTORY OF PRESENT ILLNESS: Patient examined this morning. Patient is sitting up in the chair. Patient currently denies chest pain or pressure. He describes his breathing as " so- so". He remains on 3 L nasal cannula. Vital signs are stable. Most recent blood pressure 114/62. Most recent echocardiogram revealed ejection fraction 20%. PHYSICAL EXAM: VITAL SIGNS: Reviewed. GENERAL: Well-developed in no acute distress. NECK: Supple. No JVD or thyromegaly LUNGS: Respirations even and unlabored. Lungs essentially clear to auscultation bilaterally. HEART: Irregular rate and rhythm. S1 and S2 heard. EXTREMITIES: Normal range of motion. No clubbing or cyanosis. Peripheral pulses intact. 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 Continue to monitor blood pressure. If blood pressure unable to tolerate increase in metoprolol, may decrease to 37.5 mg Eliquis remains on hold secondary to gross hematuria Patient is high risk to undergo any surgical intervention from a cardiac standpoint. However will defer ultimate decision and timing to urology No further inpatient recommendations from a cardiac standpoint. We will sign off. Please reconsult if needed. Nurse practitioner note has been reviewed by physician. Signing provider agrees with the documented findings, assessment, and plan of care documented by SPA ASSISTANT MANAGER as a scribe. Objective - Vital Signs Vital signs: Vital Signs Temp 97.6 F 11/25/23 07:00 Pulse 80 11/25/23 11:46 Resp 18 11/25/23 07:00 BP 114/62 11/25/23 07:00 Pulse Ox 98 11/25/23 08:40 FiO2 Intake & Output 11/24/23 11/25/23 11/25/23 18:59 06:59 18:59 Intake Total 118 1520 118 Output Total 450 725 Balance -332 795 118 Intake: Oral 118 1520 118 Output: Urine 450 725 Other: Voiding Method Urinal Urinal Urinal # Voids 1 # Bowel Movements 1 - Labs CBC & Chem 7: 11/25/23 03:04 11/25/23 03:04 Labs: Abnormal Lab Results - Last 24 Hours (Table) 11/25/23 11/25/23 Range/Units 03:04 03:04 WBC 4.40 L (4.50-10.00) X 10*3/uL RBC 3.63 L (4.40-5.60) X 10*6/uL Hgb 10.2 L (13.0-17.0) g/dL Hct 32.2 L (39.6-50.0) % MCHC 31.7 L (32.0-37.0) g/dL RDW 16.6 H (11.5-14.5) % BUN/Creatinine Ratio 26.89 H (12.00-20.00) Ratio Calcium 8.3 L (8.7-10.3) mg/dL Total Protein 5.7 L (6.2-8.2) g/dL Albumin 3.2 L (3.8-4.9) g/dL Albumin/Globulin Ratio 1.28 L (1.60-3.17) Ratio
[2023-11-25] MEDS: POTASSIUM CHLORIDE ER 20 MEQ TAB.ER PO STA (15:58)
[2023-11-25] MEDS: METOPROLOL TARTRATE 50 MG TAB PO SCH (20:52)
--- NOTE | 2023-11-25 22:42 | P.PN ---
Subjective Progress Note Date: 11/25/23 HISTORY OF PRESENT ILLNESS: 73-year-old with active medical history of chronic alcoholism, A-fib with RVR, history of CVA/TIA, hypertension, previous history of myocardial infarction, GERD, chronic anemia, who was transferred to [facility] On 11/12/2023 after being in the hospital for 2 weeks with main diagnosis at the time of altered ental status, metabolic acidosis, hypoxic respiratory failure, acute alcohol withdrawal, systolic congestive heart failure with ejection fraction of 20 percentile most likely from alcoholic cardiomyopathy, again pancytopenia and 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 Also had left sided large pleural effusion. With stage II ulcer on the left buttocks with unstageable ulcer on the right buttocks at the time. The patient did not do well in [facility] at the time and continue not to respond that well been anxious all the time still having some sign and symptom of alcohol withdrawal with quite a bit altered mental status confusion and such. 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 Hospital again: Patient to be in A- fib with RVR with pulse rate of 130 beats per minutes. Continue to have significant confusion and altered mental status. Was giving Cardizem initially and initiate his metoprolol and claimed that his pulse rate had responded decide to keep him in the hospital to see cardiology for maybe a Holter management avoid having A-fib happening all the time. He become quite bit confused and agitated ended up having CAT scan of the brain without contrast showed scattered small area of cortical infarct of the lateral left frontal lobe with right occipital lobe as well and biparietal subcortical white matter change.. His laboratory value with CBC CMP shows mildly elevated bilirubin proBNP was 16,900 with troponin of 0.026 UA is currently positive for RBC some WBC toxicology and drug screen along with respiratory culture were negative. 09/20/2023: The patient is doing much better with A-fib with RVR but continue to have significant sign and symptom of cardiomyopathy worsening symptom of encephalopathy as well related to his alcoholism slightly with a challenge in his kidney function and potassium his creatinine is up to 1.8 with GFR down to 40 potassium was 6.1 we will use 1 dose of Lokelma to bring his potassium down patient will be seen nephrology in consultation in the meanwhile continue current management for his A-fib and current problem initially the plan was probably to initiate patient on Entresto better beta-geovani spironolactone with furosemide and he was taking off potassium supplement completely and patient is declining more including decline in his mental status and encephalopathy is more than expected. Again has a matter of the large side with urethral mass which is causing mild o bstructive uropathy on the left side will consult urology for possible need for intervention of any type. Initial plan with the emergency room to have patient hospitalized stabilize A-fib and send him back to [facility]. Patient is still not stable in any aspect slightly but worsening complexity of multiple problem we will keep him in the hospital for now try to have a better solution and management for his A-fib, cardiomyopathy, encephalopathy, acute kidney injury with kidney failure and ureteral mass before returning to [facility] patient is still under the effect of worsening mental status especially with his alcohol withdrawal despite not drinking for period of time he still on delirium tremor watch with CIWA still on lorazepam on as-needed basis. 09/23/2023: Patient is still significantly confused and agitated, apparently ended up seen neurology and the plan probably to go for intervention at least cystoscopy with possible biopsy versus resection this will be taking place today. In regard to delirium, and withdrawal symptoms we will start patient on p henobarbital 3 times a day regularly to see if he can control his symptoms. He still confused, still agitated, still able to ambulate but required help. For the severity of hyperkalemia Lokelma was used the patient is still in acute kidney injury but kidney function has improved from 2 days ago creatinine down to 1.3 with GFR at 1.3. White blood cell hemoglobin are stable with no sign of anemia at this point. 11/21/2023: Continue to improve gradually hemoglobin at 10.2 with white blood cell 4.4. Kidney function is plateauing and almost back to normal with GFR running around 91. Phenobarbital was started yesterday apparently his DVT is much better. His medication can be transferred patient probably for the next 2 to 4 weeks. REVIEW OF SYSTEMS: CONSTITUTIONAL: Well-developed confused in no acute respiratory distress EYES: No icterus sclerae, no conjunctivitis. EARS, NOSE, MOUTH, THROAT, and FACE: No sore throat, lymphadenopathy, carotid bruits or deformity. RESPIRATORY: No SOB cough or wheezes. CARDIOVASCULAR: Positive. Currently palpitation. GASTROINTESTINAL: No Abd pain, Nausea or vomiting, no Diarrhea or constipation, No GI Bleed, no distention or masses. GENITOURINARY: Still have hematuria. INTEGUMENT/BREAST: Negative for any muscular injury with mild osteoarthritis.. HEMATOLOGIC/LYMPHATIC: Negative for bleed or purpura. MUSCULOSKELTAL: Negative for Myalgia or arthralgia. NEURLOGICAL: Quite bit confused alert moving all his 4 extremity. BEHAVIORAL/PSYCH: Quite bit anxious and confused. ENDOCRINE: Negative. PHYSICAL EXAMINATION: General Appearance: Alert, confused no acute respiratory distress. Neck HEENT: Supple, no lymphadenopathy, no thyroid enlargement, no carotid bruits. Lungs: Decreased breath sound bilaterally fine rhonchi no crackles or wheezes. Chest Wall: Decreased expansion with deep inspiration no tenderness and no deformity was found on exam, no costochondral pain or discomfort. Heart: Irregular rate and rhythm, S1, S2 positive S3 positive systolic murmur. Back: Symmetric, no curvature, ROM normal, no CVA tenderness. Abdomen: Soft, non-tender, bowel sounds active all four quadrants, no masses, no organomegaly. Extremities: Extremities normal, atraumatic, no cyanosis positive edema Pulses: 2+ and symmetric. Skin: Skin color, texture, tugor normal, no rashes or lesions. Neurologic: Alert confused, cranial nerves II through XII intact, positive generalized weakness with severe abnormal balance and gait. ASSESSMENT AND PLAN: _A-fib with RVR: Still not well-controlled, he was on metoprolol tartrate 12.5 mg twice a day should probably titrate dose up to 25 mg twice a day, Cardiology had seen patient and believed adding digoxin was a good choice no need for any amiodarone or any other management at this point. Cardiology apparently I agree with the current management treatment. _Severe cardiomyopathy most likely alcoholic type with ejection fraction of 20 percentile patient still is showing signs and symptoms of cardiomyopathy sadly with the blood pressure is not tight. Could not do Entresto for now because of acute kidney injury spironolactone was started beside furosemide. May be will decide to the smaller dose of ARB if patient can tolerate it. _Hyperkalemia: Was treated with Lokelma has been doing much better so far. _Acute kidney injury which most likely secondary to acute tubular necrosis plus slight left-sided obstructive uropathy from the mass in the rectal area kidney function slightly bit worse will consult nephrology and urology the patient will have probably another ultrasound of the kidney. No need for dialysis and kidney function is much better. 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 _History of alcoholism with quite alcohol withdrawal and alcohol encephalopathy, will continue multivitamin along with thiamine folic acid and B12 patient still seen neurology regularly _Hypertension: Blood pressure still quite bit low with the current symptoms he is on metoprolol only to make it more useful having to introduce Entresto patient probably can benefit from adding midodrine 5 mg twice a day to raise his blood pressure up little bit and prepare for keeping him on more medication to help his cardiomyopathy. _Alcoholic encephalopathy: With worsening symptoms lately the patient again might benefit eventually from adding lactulose and probably rifampin. _History of macrocytic anemia: Mostly related to alcoholism and B12 with folic acid deficiency, continue folic acid along with thiamine and B12 hemoglobin is much better. _Anticoagulation: Remain on Eliquis 5 mg twice a day. _Stage III chronic kidney disease mostly stage IIIa and has slight improvement his GFR remained at 59 continue hydration and supportive care. _Recurrent pleural effusion: Slightly bit better at this time no need for tho racentesis. _Severe GERD: Will continue pantoprazole 40 mg daily. _Hypothyroidism: Continue levothyroxine 200 mcg daily. Discussion: He initially was a clear but had high risk for intervention card iology decided not to do very official clearance so his surgery was held for now we will continue current management and prepare hopefully for surgery by the end of the week specially if he is more cleared by cardiology with A-fib has been better controlled. Objective - Vital Signs Vital signs: Vital Signs Temp 97.0 F L 11/25/23 02:00 Pulse 83 11/25/23 02:00 Resp 18 11/25/23 02:00 BP 111/63 11/25/23 02:00 Pulse Ox 98 11/25/23 02:00 FiO2 Intake & Output 11/24/23 11/24/23 11/25/23 06:59 18:59 06:59 Intake Total 118 1520 Output Total 525 450 725 Balance -525 -332 795 Intake: Oral 118 1520 Output: Urine 525 450 725 Other: Voiding Method Urinal Urinal Urinal # Voids 1 # Bowel Movements 1 - Labs CBC & Chem 7: 11/25/23 03:04 11/25/23 03:04 Labs: Abnormal Lab Results - Last 24 Hours (Table) 11/24/23 11/24/23 Range/Units 02:53 02:53 RBC 3.54 L (4.40-5.60) X 10*6/uL Hgb 10.0 L (13.0-17.0) g/dL Hct 31.6 L (39.6-50.0) % MCHC 31.6 L (32.0-37.0) g/dL RDW 16.7 H (11.5-14.5) % BUN 31.3 H (9.0-27.0) mg/dL Est GFR (CKD-EPI) 59 L (>=60) BUN/Creatinine Ratio 24.08 H (12.00-20.00) Ratio
[2023-11-26 10:26] LABS: African American GFR (CKD) >90 (>60 ml/min/1.73 sqM); Anion Gap 6 mmol/L; Blood Urea Nitrogen 18 mg/dL (9-20); Calcium 8.7 mg/dL (8.4-10.2); Carbon Dioxide 27 mmol/L (22-30); Chloride 106 mmol/L (98-107); Glucose 113 mg/dL (74-99); Non-African American GFR(CKD) 88 (>60 ml/min/1.73 sqM); Potassium 3.4 mmol/L (3.5-5.1); Sodium 139 mmol/L (137-145)
--- NOTE | 2023-11-26 10:49 | P.PN ---
Subjective Patient seen at bedside. No significant overnight events. Nephrology consulted for acute kidney injury. Potassium decreased from 3.7 to 3.4. Objective - Vital Signs Vital signs: Vital Signs Temp 97.5 F L 11/26/23 07:00 Pulse 79 11/26/23 07:00 Resp 20 11/26/23 07:00 BP 121/82 11/26/23 07:00 Pulse Ox 95 11/26/23 07:00 FiO2 Intake & Output 11/25/23 11/26/23 11/26/23 18:59 06:59 18:59 Intake Total 716 1040 Output Total 500 600 Balance 216 440 Intake: Oral 716 1040 Output: Urine 500 600 Other: Voiding Method Urinal Urinal Urinal - Exam patient is awake, comfortable, alert oriented 3. No acute distress. Examination of the heart S1 and S2 Examination of the lungs bilateral breath sounds are heard Abdomen is soft nontender Examination of lower extremities no edema - Labs CBC & Chem 7: 11/25/23 03:04 11/26/23 09:56 Labs: Abnormal Lab Results - Last 24 Hours (Table) 11/25/23 Range/Units 03:04 BUN/Creatinine Ratio 26.89 H (12.00-20.00) Ratio Calcium 8.3 L (8.7-10.3) mg/dL Total Protein 5.7 L (6.2-8.2) g/dL Albumin 3.2 L (3.8-4.9) g/dL Albumin/Globulin Ratio 1.28 L (1.60-3.17) Ratio Assessment and Plan Assessment: 1. Non-oligurci MARK suspect hemodynmiac ATN from [facility]. Baseline creatinine 1.0 mg/dL. Presented 1.2-->1.7-->1.4--> 1.3--> 0.9--> 0.85 today. UA hysaline casts with blood and RBC. Improved. 2. Hyperkalemia due to MARK. Improved with medical management. 3. A Fib with RVR 4. Hyponatremia, improved. 5. Chronic CHF EF 20% 6. Left ureteral pelvic brim ureteral wall thickening/mass - urology following. Urology will reevaluate later in the week if patient can tolerate cystoscopy. 7. Bilateral pleural effusions since admission, patient has been on fluids since admission. Plan: Postvoid residual negative for urinary retention. Daily BMP, strict I/O's Chest x-ray shows bilateral consolidation and pleural effusion correlate for CHF otherwise consider pneumonia. Patient has been on fluids since admission, with improved renal function will continue to hold fluids and continue Lasix given results of chest x-ray. Discontinued IV fluids, will consider restarting if creatinine starts to increase, patient has been on fluids since admission Avoid nephrotoxins. Continue lasix for now. Replete potassium with 40 mEq p.o. once, if it is still low tomorrow we will start potassium 10 mEq p.o. daily. Cardiology states the patient is at high risk for any procedure, and per urology PA will not perform a cystoscopy at this time, and will reevaluate later this week. I have seen and examined the patient with the resident and agree with assessment and plan as written.
[2023-11-26] MEDS: POTASSIUM CHLORIDE ER 20 MEQ TAB.ER PO STA (11:53)
--- NOTE | 2023-11-26 13:12 | P.DS ---
Providers Date of admission: 11/21/23 10:06 Attending physician: Sam Bustillo Consults: 11/20/23 12:24 Consult Physician Routine Consulting Provider: [facility] Consult Reason/Comments: afib with rvr Do you want consulting provider notified?: Yes 11/21/23 06:38 Consult Physician Routine Consulting Provider: Leonides Reyna Consult Reason/Comments: large Uretral Mass with Hydronephrosis Do you want consulting provider notified?: Yes 11/21/23 10:21 Consult Physician Routine Consulting Provider: Simin Arndt Consult Reason/Comments: MARK with CKD Do you want consulting provider notified?: Yes Primary care physician: [facility] Course: HISTORY OF PRESENT ILLNESS: 73-year-old with active medical history of chronic alcoholism, A-fib with RVR, history of CVA/TIA, hypertension, previous history of myocardial infarction, GERD, chronic anemia, who was transferred to [facility] On 11/12/2023 after being in the hospital for 2 weeks with main diagnosis at the time of altered ental status, metabolic acidosis, hypoxic respiratory failure, acute alcohol withdrawal, systolic congestive heart failure with ejection fraction of 20 percentile most likely from alcoholic cardiomyopathy, again pancytopenia and 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 Also had left sided large pleural effusion. With stage II ulcer on the left buttocks with unstageable ulcer on the right buttocks at the time. The patient did not do well in [facility] at the time and continue not to respond that well been anxious all the time still having some sign and symptom of alcohol withdrawal with quite a bit altered mental status confusion and such. 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 Hospital again: Patient to be in A- fib with RVR with pulse rate of 130 beats per minutes. Continue to have significant confusion and altered mental status. Was giving Cardizem initially and initiate his metoprolol and claimed that his pulse rate had responded decide to keep him in the hospital to see cardiology for maybe a Holter management avoid having A-fib happening all the time. He become quite bit confused and agitated ended up having CAT scan of the brain without contrast showed scattered small area of cortical infarct of the lateral left frontal lobe with right occipital lobe as well and biparietal subcortical white matter change.. His laboratory value with CBC CMP shows mildly elevated bilirubin proBNP was 16,900 with troponin of 0.026 UA is currently positive for RBC some WBC toxicology and drug screen along with respiratory culture were negative. 11/21/2023: The patient is doing much better with A-fib with RVR but continue to have significant sign and symptom of cardiomyopathy worsening symptom of encephalopathy as well related to his alcoholism slightly with a challenge in his kidney function and potassium his creatinine is up to 1.8 with GFR down to 40 potassium was 6.1 we will use 1 dose of Lokelma to bring his potassium down patient will be seen nephrology in consultation in the meanwhile continue current management for his A-fib and current problem initially the plan was probably to initiate patient on Entresto better beta-geovani spironolactone with furosemide and he was taking off potassium supplement completely and patient is declining more including decline in his mental status and encephalopathy is more than expected. Again has a matter of the large side with urethral mass which is causing mild obstructive uropathy on the left side will consult urology for possible need for intervention of any type. Initial plan with the emergency room to have patient hospitalized stabilize A-fib and send him back to [facility]. Patient is still not stable in any aspect slightly but worsening complexity of multiple problem we will keep him in the hospital for now try to have a better solution and management for his A-fib, cardiomyopathy, encephalopathy, acute kidney injury with kidney failure and ureteral mass before returning to [facility] patient is still under the effect of worsening mental status especially with his alcohol withdrawal despite not drinking for period of time he still on delirium tremor watch with CIWA still on lorazepam on as-needed basis. 11/24/2023: Patient is still significantly confused and agitated, apparently ended up seen neurology and the plan probably to go for intervention at least cystoscopy with possible biopsy versus resection this will be taking place today. In regard to delirium, and withdrawal symptoms we will start patient on phenobarbital 3 times a day regularly to see if he can control his symptoms. He still confused, still agitated, still able to ambulate but required help. For the severity of hyperkalemia Lokelma was used the patient is still in acute kidney injury but kidney function has improved from 2 days ago creatinine down to 1.3 with GFR at 1.3. White blood cell hemoglobin are stable with no sign of anemia at this point. 11/25/2023: Continue to improve gradually hemoglobin at 10.2 with white blood cell 4.4. Kidney function is plateauing and almost back to normal with GFR running around 91. Phenobarbital was started yesterday apparently his DVT is much better. His medication can be transferred patient probably for the next 2 to 4 weeks. 11/26/2023: Patient is doing very well no intervention will be done by urology, cardiology refused to clear patient for surgery at this point because of his extreme low ejection fraction and high risk for A-fib and arrhythmia decided to wait on doing intervention with cystoscopy and biopsy from the left ureteral mass and will delay this and have it done as an outpatient eventually when patient is ready. Patient is doing better physically he is less confused and agitated his delirium tremor has improved on phenobarbital and lorazepam, has not combative and has not had any further episode of A-fib with RVR with pulse rapid. Hopefully patient be able to transfer back to [facility] to follow the rest as an outpatient. 11/27/2023: 11/27/2023: The patient is awaiting for any intervention with urology at this point, and extreme high risk with severe nonischemic cardiomyopathy and very high risk with anesthesia and complication related to surgery the surgery will be delay for now he will be seen back urology as an outpatient and plan to do cystoscopy and probably an intervention if needed in the next few weeks. Attempt to send patient to subacute rehab she will apparently insurance company had declined having patient go to rehab at this point felt his doing better physically than but he will do and benefit from rehab. Talk to the patient about doing physical therapy while he is in the hospital make sure to the nephrology social worker that he will be safe going home with help and then plan probably for going home tomorrow. 11/28/2023: Patient is doing better apparently is able to do physical therapy and have to walk with a walker with minimal help. nephrology social worker is trying to work deal with his family to let him go home with home physical therapy all his prescription will be finalized and sent to bring a prescription for his meds to [facility] pharmacy in [place]. Also found that patient see primary care physician Dr. Munroe not clear why he ended up on my service this time but patient will be going back to see Dr. Munroe as an outpatient from [facility] and if he is hospitalized and need probably to go back to [facility] in the future. REVIEW OF SYSTEMS: CONSTITUTIONAL: Well-developed confused in no acute respiratory distress EYES: No icterus sclerae, no conjunctivitis. EARS, NOSE, MOUTH, THROAT, and FACE: No sore throat, lymphadenopathy, carotid bruits or deformity. RESPIRATORY: No SOB cough or wheezes. CARDIOVASCULAR: Positive. Currently palpitation. GASTROINTESTINAL: No Abd pain, Nausea or vomiting, no Diarrhea or constipation, No GI Bleed, no distention or masses. GENITOURINARY: Still have hematuria. INTEGUMENT/BREAST: Negative for any muscular injury with mild osteoarthritis.. HEMATOLOGIC/LYMPHATIC: Negative for bleed or purpura. MUSCULOSKELTAL: Negative for Myalgia or arthralgia. NEURLOGICAL: Quite bit confused alert moving all his 4 extremity. BEHAVIORAL/PSYCH: Quite bit anxious and confused. ENDOCRINE: Negative. PHYSICAL EXAMINATION: General Appearance: Alert, confused no acute respiratory distress. Neck HEENT: Supple, no lymphadenopathy, no thyroid enlargement, no carotid bruits. Lungs: Decreased breath sound bilaterally fine rhonchi no crackles or wheezes. Chest Wall: Decreased expansion with deep inspiration no tenderness and no deformity was found on exam, no costochondral pain or discomfort. Heart: Irregular rate and rhythm, S1, S2 positive S3 positive systolic murmur. Back: Symmetric, no curvature, ROM normal, no CVA tenderness. Abdomen: Soft, non-tender, bowel sounds active all four quadrants, no masses, no organomegaly. Extremities: Extremities normal, atraumatic, no cyanosis positive edema Pulses: 2+ and symmetric. Skin: Skin color, texture, tugor normal, no rashes or lesions. Neurologic: Alert confused, cranial nerves II through XII intact, positive generalized weakness with severe abnormal balance and gait. ASSESSMENT AND PLAN: _A-fib with RVR: Still not well-controlled, he was on metoprolol tartrate 12.5 mg twice a day should probably titrate dose up to 25 mg twice a day, Cardiology had seen patient and believed adding digoxin was a good choice no need for any amiodarone or any other management at this point. Cardiology apparently I agree with the current management treatment. _Severe cardiomyopathy most likely alcoholic type with ejection fraction of 20 percentile patient still is showing signs and symptoms of cardiomyopathy sadly with the blood pressure is not tight. Could not do Entresto for now because of acute kidney injury spironolactone was started beside furosemide. May be will decide to the smaller dose of ARB if patient can tolerate it. _Hyperkalemia: Was treated with Lokelma has been doing much better so far. _Acute kidney injury which most likely secondary to acute tubular necrosis plus slight left-sided obstructive uropathy from the mass in the rectal area kidney function slightly bit worse will consult nephrology and urology the patient will have probably another ultrasound of the kidney. No need for dialysis and kidney function is much better. 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 _History of alcoholism with quite alcohol withdrawal and alcohol encephalopathy, will continue multivitamin along with thiamine folic acid and B12 patient still seen neurology regularly _Hypertension: Blood pressure still quite bit low with the current symptoms he is on metoprolol only to make it more useful having to introduce Entresto patient probably can benefit from adding midodrine 5 mg twice a day to raise his blood pressure up little bit and prepare for keeping him on more medication to help his cardiomyopathy. _Alcoholic encephalopathy: With worsening symptoms lately the patient again might benefit eventually from adding lactulose and probably rifampin. _History of macrocytic anemia: Mostly related to alcoholism and B12 with folic acid deficiency, continue folic acid along with thiamine and B12 hemoglobin is much better. _Anticoagulation: Remain on Eliquis 5 mg twice a day. _Stage III chronic kidney disease mostly stage IIIa and has slight improvement his GFR remained at 59 continue hydration and supportive care. _Recurrent pleural effusion: Slightly bit better at this time no need for thoracentesis. _Severe GERD: Will continue pantoprazole 40 mg daily. _Hypothyroidism: Continue levothyroxine 200 mcg daily. Discussion: No intervention will be done while he is in the hospital patient had extreme high risk for surgical intervention at this point which will be delayed till he is more stable wean off alcohol for few months his ejection fraction hopefully will improve and his cardiomyopathy will be much better will be a lot safer to do intervention in 8 to 12 weeks. In the meanwhile patient can be seen by urology as an outpatient in consultation for follow-up. Attempt to send patient to subacute rehab had failed, the patient will be doing more physical therapy and eventually will be going home with family and home care along with physical therapy. 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 Was sent back to the emergency department for the second time this time his testing including his proBNP was 16 900 with ejection fraction 20 percentile known for severe cardiomyopathy more alcoholic type also was in A-fib with RVR was not controlled with current medication. Was started on Cardizem drip and initially and titrate dose higher eventually decided to increase his beta-geovani without having him to stay on Cardizem. Also one of the option was to add digoxin 0.125 mg daily. Patient again was in with acute kidney injury with much worsening kidney function at the time with GFR running in the 20 with creatinine at 1.8 his potassium was elevated require 1 dose of Lokelma to keep his potassium down. Initially thought of starting patient on Entresto with spironolactone beside his furosemide and current dose of beta-geovani but patient acute kidney injury with worsening kidney function decided to back off on Entresto and spironolactone for the time being. Patient found left ureteral mass measured at 1.8 cm causing mild left-sided hydronephrosis from the admission before the worry at the time whether he need any further workup from urology standpoint or not decided to do it as an outpatient. This time because of the kidney function being down decide to consult urology for the second time to see if there is any bearing effect on this mass on the left side. Urology decided to do cystoscopy and probably resection ended up asking cardiology consultation to be able to do this procedure. Cardiology decide with patient ejection fraction 20 percentile and he is A-fib with RVR with the current complaint he will be extremely high risk to have any type of intervention required sedation and to consider him extremely high risk which for the time being decide not to do the procedure and to wait on it. Patient through the hospitalization end up going to withdrawal from alcohol and mild delirium tremor require starting him on phenobarbital beside his lorazepam and he is done to some degree slightly better with it so far. Last 48 hours he is more clear able to carry conversation following command and start doing some physical therapy. With his A-fib under control cardiomyopathy better managed with current medication and not going for any intervention with urology. in attempt to get patient back to subacute rehab at [facility] patient apparently physically at this point and his withdrawal from alcohol is better than before insurance company refused to authorize his transfer to subacute rehab. nephrology social worker along with physical therapy work on to help patient to get back home with home care and home physical therapy. Patient be going back to see cardiology and probably primary care within the next few days. Patient was stable to be discharged on Friday but the stability to go home was not good looking at his comorbidity and failure for potential rehospitalization was very high. An attempt to prevent any further complication of management I contacted [facility] around 2:00 in the afternoon and explained to them was khushbu bhatia on with the patient that he still need some SNF to help him out for the next 2 weeks till he is clear with his alcoholism, delirium tremor, stable on his cardiomyopathy, and stable on medication and stability and physical therapy and they agree to approve him but requested to submit his paper 1 more time and waiting for preauthorization to be approved. Sadly patient had to spend the weekend in the hospital till 12/01/2023 he is still very stable medically but they approve him to go to SNF today which patient be transferred to [facility] in the next few hours. Time spent on patient discharge was over 35 minutes. Patient Condition at Discharge: Stable Plan - Discharge Summary Discharge Rx Participant: No New Discharge Prescriptions: New QUEtiapine [SEROquel] 25 mg PO HS #30 tab Digoxin [Lanoxin] 125 mcg PO DAILY #30 tab PHENobarbitaL [Luminal] 16.2 mg PO BID PRN 3 Days #30 tablet PRN Reason: Alcohol Withdrawal Melatonin 6 mg PO HS PRN tab PRN Reason: Insomnia Midodrine [ProAmatine] 2.5 mg PO AC-TID #90 tab Continue Ipratropium-Albuterol Nebulize [Duoneb 0.5 mg-3 mg/3 ml Soln] 3 ml INHALATION RT-QID each guaiFENesin [guaiFENesin ER] 600 mg PO Q12HR Magnesium Hydroxide [Milk of Magnesia Concentrate] 7,200 mg PO DAILY PRN PRN Reason: Constipation Metoprolol Tartrate [Lopressor] 12.5 mg PO BID@0800,1700 #60 tab bisacodyL [Dulcolax] 10 mg RECTAL DAILY PRN PRN Reason: Constipation Na Phos,M-B/Na Phos,Di-Ba [Fleet Adult] 133 ml RECTAL DAILY PRN PRN Reason: Constipation Acetaminophen Tab [Tylenol] 650 mg PO Q4H PRN PRN Reason: Fever And/ Or Pain Multivitamins, Thera [Multivitamin (formulary)] 1 tab PO DAILY@0800 Changed Folic Acid 1 mg PO DAILY@0800 #30 tab Furosemide [Lasix] 40 mg PO DAILY@0800 #30 tab Magnesium Oxide [Magox 400] 400 mg PO DAILY@0600 #30 tab Thiamine [Vitamin B-1] 100 mg PO DAILY@0800 #60 tab Apixaban [Eliquis] 5 mg PO BID@0800,1700 #60 tab Potassium Chloride [Klor-Con 20 Packets] 20 meq PO BID@0800,1700 #60 packet Pantoprazole [Protonix] 40 mg PO DAILY@0600 #30 tab Levothyroxine Sodium [Synthroid] 200 mcg PO DAILY@0600 #30 tab Discontinued Nicotine 14Mg/24Hr Patch [Habitrol] 1 patch TRANSDERM DAILY@0800 Doxycycline Hyclate 100 mg PO BID@0800,1700 predniSONE 10 mg PO DAILY Nystatin 100,000 Unit/gm Oint [Mycostatin Oint] 1 applic TOPICAL BID each Midodrine [ProAmatine] 5 mg PO TID@0800,1200,1700 QUEtiapine [SEROquel] See Taper PO DIRECTED Discharge Medication List Ipratropium-Albuterol Nebulize [Duoneb 0.5 mg-3 mg/3 ml Soln] 3 ml INHALATION RT-QID each 11/12/23 [Rx] Acetaminophen Tab [Tylenol] 650 mg PO Q4H PRN 11/20/23 [History] Magnesium Hydroxide [Milk of Magnesia Concentrate] 7,200 mg PO DAILY PRN 11/20/23 [History] Multivitamins, Thera [Multivitamin (formulary)] 1 tab PO DAILY@0800 11/20/23 [History] Na Phos,M-B/Na Phos,Di-Ba [Fleet Adult] 133 ml RECTAL DAILY PRN 11/20/23 [History] bisacodyL [Dulcolax] 10 mg RECTAL DAILY PRN 11/20/23 [History] guaiFENesin [guaiFENesin ER] 600 mg PO Q12HR 11/20/23 [History] Melatonin 6 mg PO HS PRN tab 11/26/23 [Rx] Apixaban [Eliquis] 5 mg PO BID@0800,1700 #60 tab 11/28/23 [Rx] Digoxin [Lanoxin] 125 mcg PO DAILY #30 tab 11/28/23 [Rx] Folic Acid 1 mg PO DAILY@0800 #30 tab 11/28/23 [Rx] Furosemide [Lasix] 40 mg PO DAILY@0800 #30 tab 11/28/23 [Rx] Levothyroxine Sodium [Synthroid] 200 mcg PO DAILY@0600 #30 tab 11/28/23 [Rx] Magnesium Oxide [Magox 400] 400 mg PO DAILY@0600 #30 tab 11/28/23 [Rx] Metoprolol Tartrate [Lopressor] 12.5 mg PO BID@0800,1700 #60 tab 11/28/23 [Rx] Midodrine [ProAmatine] 2.5 mg PO AC-TID #90 tab 11/28/23 [Rx] PHENobarbitaL [Luminal] 16.2 mg PO BID PRN 3 Days #30 tablet 11/28/23 [Rx] Pantoprazole [Protonix] 40 mg PO DAILY@0600 #30 tab 11/28/23 [Rx] Potassium Chloride [Klor-Con 20 Packets] 20 meq PO BID@0800,1700 #60 packet 11/28/23 [Rx] QUEtiapine [SEROquel] 25 mg PO HS #30 tab 11/28/23 [Rx] Thiamine [Vitamin B-1] 100 mg PO DAILY@0800 #60 tab 11/28/23 [Rx] Follow up Appointment(s)/Referral(s): Ja Duff MD [STAFF PHYSICIAN] - 1 Week [facility], [NON-STAFF] - 1 Week [facility] [NON-STAFF] - 1 Week Clement Ritchie MD [STAFF PHYSICIAN] - 1 Week Discharge/Stand Alone Forms: AA Meetings [facility], Outpatient Counseling, In Substance Abuse Facilities Discharge Disposition: HOME WITH HOME HEALTH SERVICES
--- NOTE | 2023-11-26 21:02 | P.PN ---
Subjective No acute overnight event, denies any gross hematuria this morning Objective - Vital Signs Vital signs: Vital Signs Temp 97.6 F 11/26/23 15:00 Pulse 78 11/26/23 18:49 Resp 18 11/26/23 15:00 BP 126/78 11/26/23 16:46 Pulse Ox 97 11/26/23 15:00 FiO2 Intake & Output 11/26/23 11/26/23 11/27/23 06:59 18:59 06:59 Intake Total 1040 358 Output Total 600 400 Balance 440 -42 Intake: Oral 1040 358 Output: Urine 600 400 Other: Voiding Method Urinal Urinal - Labs CBC & Chem 7: 11/25/23 03:04 11/26/23 09:56 Labs: Abnormal Lab Results - Last 24 Hours (Table) 11/26/23 Range/Units 09:56 Potassium 3.4 L (3.5-5.1) mmol/L Glucose 113 H (74-99) mg/dL Assessment and Plan Assessment: 73-year-old male with a known 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 Had episode of gross hematuria on Eliquis. Hematuria has resolved now after discontinuation of Eliquis. Patient was not cleared by cardiology as he was considered a very high risk. Had a prolonged discussion with the patient he is considered a high risk for diagnostic cystoscopy and ureteroscopy under ane sthesia. Discussed high potential of having a cardiac complication and even possible from anesthetic. Discussed with him even if it does confirm the finding of a ureteral mass the next step would be to undergo a left nephroureterectomy given that he is considered a high risk for ureteroscopy he is very unlikely to tolerate a major abdominal surgery. Discussed given his significant comorbidities alternative of continued monitoring rather than any intervention at this time. He is aware of this is most likely a malignant lesion and potential of progression and metastasis. At this time he is not interested in proceeding with any intervention given the risk of morbidity and mortality from any intervention. At this point he can follow-up with us as an outpatient for continued monitoring. If patient has recurrent gross hematuria, and still deemed a high surgical candidate we can consider palliative radiation
[2023-11-27 11:28] LABS: BUN/Creat Ratio 17.75 Ratio (12.00-20.00); Blood Urea Nitrogen 14.2 mg/dL (9.0-27.0); Calcium 8.8 mg/dL (8.7-10.3); Carbon Dioxide 24.2 mmol/L (21.6-31.8); Chloride 106 mmol/L (96-109); Glucose 86 mg/dL (70-110); Magnesium 1.7 mg/dL (1.5-2.4); Sodium 140 mmol/L (135-145)
--- NOTE | 2023-11-28 07:08 | P.PN ---
Subjective Progress Note Date: 11/27/23 HISTORY OF PRESENT ILLNESS: 73-year-old with active medical history of chronic alcoholism, A-fib with RVR, history of CVA/TIA, hypertension, previous history of myocardial infarction, GERD, chronic anemia, who was transferred to 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 Also had left sided large pleural effusion. With stage II ulcer on the left buttocks with unstageable ulcer on the right buttocks at the time. The patient did not do well in [facility] at the time and continue not to respond that well been anxious all the time still having some sign and symptom of alcohol withdrawal with quite a bit altered mental status confusion and such. 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 Hospital again: Patient to be in A- fib with RVR with pulse rate of 130 beats per minutes. Continue to have significant confusion and altered mental status. Was giving Cardizem initially and initiate his metoprolol and claimed that his pulse rate had responded decide to keep him in the hospital to see cardiology for maybe a Holter management avoid having A-fib happening all the time. He become quite bit confused and agitated ended up having CAT scan of the brain without contrast showed scattered small area of cortical infarct of the lateral left frontal lobe with right occipital lobe as well and biparietal subcortical white matter change.. His laboratory value with CBC CMP shows mildly elevated bilirubin proBNP was 16,900 with troponin of 0.026 UA is currently positive for RBC some WBC toxicology and drug screen along with respiratory culture were negative. 11/21/2023: The patient is doing much better with A-fib with RVR but continue to have significant sign and symptom of cardiomyopathy worsening symptom of encephalopathy as well related to his alcoholism slightly with a challenge in his kidney function and potassium his creatinine is up to 1.8 with GFR down to 40 potassium was 6.1 we will use 1 dose of Lokelma to bring his potassium down patient will be seen nephrology in consultation in the meanwhile continue current management for his A-fib and current problem initially the plan was probably to initiate patient on Entresto better beta-geovani spironolactone with furosemide and he was taking off potassium supplement completely and patient is declining more including decline in his mental status and encephalopathy is more than expected. Again has a matter of the large side with urethral mass which is causing mild o bstructive uropathy on the left side will consult urology for possible need for intervention of any type. Initial plan with the emergency room to have patient hospitalized stabilize A-fib and send him back to [facility]. Patient is still not stable in any aspect slightly but worsening complexity of multiple problem we will keep him in the hospital for now try to have a better solution and management for his A-fib, cardiomyopathy, encephalopathy, acute kidney injury with kidney failure and ureteral mass before returning to [facility] patient is still under the effect of worsening mental status especially with his alcohol withdrawal despite not drinking for period of time he still on delirium tremor watch with CIWA still on lorazepam on as-needed basis. 11/24/2023: Patient is still significantly confused and agitated, apparently ended up seen neurology and the plan probably to go for intervention at least cystoscopy with possible biopsy versus resection this will be taking place today. In regard to delirium, and withdrawal symptoms we will start patient on p henobarbital 3 times a day regularly to see if he can control his symptoms. He still confused, still agitated, still able to ambulate but required help. For the severity of hyperkalemia Lokelma was used the patient is still in acute kidney injury but kidney function has improved from 2 days ago creatinine down to 1.3 with GFR at 1.3. White blood cell hemoglobin are stable with no sign of anemia at this point. 11/25/2023: Continue to improve gradually hemoglobin at 10.2 with white blood cell 4.4. Kidney function is plateauing and almost back to normal with GFR running around 91. Phenobarbital was started yesterday apparently his DVT is much better. His medication can be transferred patient probably for the next 2 to 4 weeks. 11/26/2023: Patient is doing very well no intervention will be done by urology, cardiology refused to clear patient for surgery at this point because of his extreme low ejection fraction and high risk for A-fib and arrhythmia decided to wait on doing intervention with cystoscopy and biopsy from the left ureteral mass and will delay this and have it done as an outpatient eventually when patient is ready. Patient is doing better physically he is less confused and agitated his delirium tremor has improved on phenobarbital and lorazepam, has not combative and has not had any further episode of A-fib with RVR with pulse rapid. Hopefully patient be able to transfer back to [facility] to follow the rest as an outpatient. 11/27/2023: 11/27/2023: The patient is awaiting for any intervention with urology at this point, and extreme high risk with severe nonischemic cardiomyopathy and very high risk with anesthesia and complication related to surgery the surgery will be delay for now he will be seen back urology as an outpatient and plan to do cystoscopy and probably an intervention if needed in the next few weeks. Attempt to send patient to subacute rehab she will apparently insurance company had declined having patient go to rehab at this point felt his doing better physically than but he will do and benefit from rehab. Talk to the patient about doing physical therapy while he is in the hospital make sure to the drug abuse social worker that he will be safe going home with help and then plan probably for going home tomorrow. REVIEW OF SYSTEMS: CONSTITUTIONAL: Well-developed confused in no acute respiratory distress EYES: No icterus sclerae, no conjunctivitis. EARS, NOSE, MOUTH, THROAT, and FACE: No sore throat, lymphadenopathy, carotid bruits or deformity. RESPIRATORY: No SOB cough or wheezes. CARDIOVASCULAR: Positive. Currently palpitation. GASTROINTESTINAL: No Abd pain, Nausea or vomiting, no Diarrhea or constipation, No GI Bleed, no distention or masses. GENITOURINARY: Still have hematuria. INTEGUMENT/BREAST: Negative for any muscular injury with mild osteoarthritis.. HEMATOLOGIC/LYMPHATIC: Negative for bleed or purpura. MUSCULOSKELTAL: Negative for Myalgia or arthralgia. NEURLOGICAL: Quite bit confused alert moving all his 4 extremity. BEHAVIORAL/PSYCH: Quite bit anxious and confused. ENDOCRINE: Negative. PHYSICAL EXAMINATION: General Appearance: Alert, confused no acute respiratory distress. Neck HEENT: Supple, no lymphadenopathy, no thyroid enlargement, no carotid br uits. Lungs: Decreased breath sound bilaterally fine rhonchi no crackles or wheezes. Chest Wall: Decreased expansion with deep inspiration no tenderness and no deformity was found on exam, no costochondral pain or discomfort. Heart: Irregular rate and rhythm, S1, S2 positive S3 positive systolic murmur. Back: Symmetric, no curvature, ROM normal, no CVA tenderness. Abdomen: Soft, non-tender, bowel sounds active all four quadrants, no masses, no organomegaly. Extremities: Extremities normal, atraumatic, no cyanosis positive edema Pulses: 2+ and symmetric. Skin: Skin color, texture, tugor normal, no rashes or lesions. Neurologic: Alert confused, cranial nerves II through XII intact, positive ge neralized weakness with severe abnormal balance and gait. ASSESSMENT AND PLAN: _A-fib with RVR: Still not well-controlled, he was on metoprolol tartrate 12.5 mg twice a day should probably titrate dose up to 25 mg twice a day, Cardiology had seen patient and believed adding digoxin was a good choice no need for any amiodarone or any other management at this point. Cardiology apparently I agree with the current management treatment. _Severe cardiomyopathy most likely alcoholic type with ejection fraction of 20 percentile patient still is showing signs and symptoms of cardiomyopathy sadly with the blood pressure is not tight. Could not do Entresto for now because of acute kidney injury spironolactone was started beside furosemide. May be will decide to the smaller dose of ARB if patient can tolerate it. _Hyperkalemia: Was treated with Lokelma has been doing much better so far. _Acute kidney injury which most likely secondary to acute tubular necrosis plus slight left-sided obstructive uropathy from the mass in the rectal area kidney function slightly bit worse will consult nephrology and urology the patient will have probably another ultrasound of the kidney. No need for dialysis and kidney function is much better. 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 _History of alcoholism with quite alcohol withdrawal and alcohol encephalopathy, will continue multivitamin along with thiamine folic acid and B12 patient still seen neurology regularly _Hypertension: Blood pressure still quite bit low with the current symptoms he is on metoprolol only to make it more useful having to introduce Entresto patient probably can benefit from adding midodrine 5 mg twice a day to raise his blood pressure up little bit and prepare for keeping him on more medication to help his cardiomyopathy. _Alcoholic encephalopathy: With worsening symptoms lately the patient again might benefit eventually from adding lactulose and probably rifampin. _History of macrocytic anemia: Mostly related to alcoholism and B12 with folic acid deficiency, continue folic acid along with thiamine and B12 hemoglobin is much better. _Anticoagulation: Remain on Eliquis 5 mg twice a day. _Stage III chronic kidney disease mostly stage IIIa and has slight improvement his GFR remained at 59 continue hydration and supportive care. _Recurrent pleural effusion: Slightly bit better at this time no need for thoracentesis. _Severe GERD: Will continue pantoprazole 40 mg daily. _Hypothyroidism: Continue levothyroxine 200 mcg daily. Discussion: No intervention will be done while he is in the hospital patient had extreme high risk for surgical intervention at this point which will be delayed till he is more stable wean off alcohol for few months his ejection fraction hopefully will improve and his cardiomyopathy will be much better will be a lot safer to do intervention in 8 to 12 weeks. In the meanwhile patient can be seen by urology as an outpatient in consultation for follow-up. Attempt to send patient to subacute rehab had failed, the patient will be doing more physical therapy and eventually will be going home with family and home care along with physical therapy. Objective - Vital Signs Vital signs: Vital Signs Temp 97.4 F L 11/27/23 00:16 Pulse 16 L 11/27/23 02:43 Resp 17 11/27/23 02:43 BP 93/60 11/27/23 00:16 Pulse Ox 94 L 11/27/23 00:16 FiO2 Intake & Output 11/26/23 11/26/23 11/27/23 06:59 18:59 06:59 Intake Total 1040 358 Output Total 600 400 200 Balance 440 -42 -200 Intake: Oral 1040 358 Output: Urine 600 400 200 Other: Voiding Method Urinal Urinal Urinal - Labs CBC & Chem 7: 11/25/23 03:04 11/27/23 06:32 Labs: Abnormal Lab Results - Last 24 Hours (Table) 11/26/23 Range/Units 09:56 Potassium 3.4 L (3.5-5.1) mmol/L Glucose 113 H (74-99) mg/dL
--- NOTE | 2023-11-28 11:48 | P.PN ---
Subjective Progress Note Date: 11/28/23 HISTORY OF PRESENT ILLNESS: 73-year-old with active medical history of chronic alcoholism, A-fib with RVR, history of CVA/TIA, hypertension, previous history of myocardial infarction, GERD, chronic anemia, who was transferred to [facility] On 11/12/2023 after being in the hospital for 2 weeks with main diagnosis at the time of altered ental status, metabolic acidosis, hypoxic respiratory failure, acute alcohol withdrawal, systolic congestive heart failure with ejection fraction of 20 percentile most likely from alcoholic cardiomyopathy, again pancytopenia and 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 Also had left sided large pleural effusion. With stage II ulcer on the left buttocks with unstageable ulcer on the right buttocks at the time. The patient did not do well in [facility] at the time and continue not to respond that well been anxious all the time still having some sign and symptom of alcohol withdrawal with quite a bit altered mental status confusion and such. 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 Hospital again: Patient to be in A- fib with RVR with pulse rate of 130 beats per minutes. Continue to have significant confusion and altered mental status. Was giving Cardizem initially and initiate his metoprolol and claimed that his pulse rate had responded decide to keep him in the hospital to see cardiology for maybe a Holter management avoid having A-fib happening all the time. He become quite bit confused and agitated ended up having CAT scan of the brain without contrast showed scattered small area of cortical infarct of the lateral left frontal lobe with right occipital lobe as well and biparietal subcortical white matter change.. His laboratory value with CBC CMP shows mildly elevated bilirubin proBNP was 16,900 with troponin of 0.026 UA is currently positive for RBC some WBC toxicology and drug screen along with respiratory culture were negative. 11/21/2023: The patient is doing much better with A-fib with RVR but continue to have significant sign and symptom of cardiomyopathy worsening symptom of encephalopathy as well related to his alcoholism slightly with a challenge in his kidney function and potassium his creatinine is up to 1.8 with GFR down to 40 potassium was 6.1 we will use 1 dose of Lokelma to bring his potassium down patient will be seen nephrology in consultation in the meanwhile continue current management for his A-fib and current problem initially the plan was probably to initiate patient on Entresto better beta-geovani spironolactone with furosemide and he was taking off potassium supplement completely and patient is declining more including decline in his mental status and encephalopathy is more than expected. Again has a matter of the large side with urethral mass which is causing mild o bstructive uropathy on the left side will consult urology for possible need for intervention of any type. Initial plan with the emergency room to have patient hospitalized stabilize A-fib and send him back to [facility]. Patient is still not stable in any aspect slightly but worsening complexity of multiple problem we will keep him in the hospital for now try to have a better solution and management for his A-fib, cardiomyopathy, encephalopathy, acute kidney injury with kidney failure and ureteral mass before returning to [facility] patient is still under the effect of worsening mental status especially with his alcohol withdrawal despite not drinking for period of time he still on delirium tremor watch with CIWA still on lorazepam on as-needed basis. 11/24/2023: Patient is still significantly confused and agitated, apparently ended up seen neurology and the plan probably to go for intervention at least cystoscopy with possible biopsy versus resection this will be taking place today. In regard to delirium, and withdrawal symptoms we will start patient on p henobarbital 3 times a day regularly to see if he can control his symptoms. He still confused, still agitated, still able to ambulate but required help. For the severity of hyperkalemia Lokelma was used the patient is still in acute kidney injury but kidney function has improved from 2 days ago creatinine down to 1.3 with GFR at 1.3. White blood cell hemoglobin are stable with no sign of anemia at this point. 11/25/2023: Continue to improve gradually hemoglobin at 10.2 with white blood cell 4.4. Kidney function is plateauing and almost back to normal with GFR running around 91. Phenobarbital was started yesterday apparently his DVT is much better. His medication can be transferred patient probably for the next 2 to 4 weeks. 11/26/2023: Patient is doing very well no intervention will be done by urology, cardiology refused to clear patient for surgery at this point because of his extreme low ejection fraction and high risk for A-fib and arrhythmia decided to wait on doing intervention with cystoscopy and biopsy from the left ureteral mass and will delay this and have it done as an outpatient eventually when patient is ready. Patient is doing better physically he is less confused and agitated his delirium tremor has improved on phenobarbital and lorazepam, has not combative and has not had any further episode of A-fib with RVR with pulse rapid. Hopefully patient be able to transfer back to [facility] to follow the rest as an outpatient. 11/27/2023: 11/27/2023: The patient is awaiting for any intervention with urology at this point, and extreme high risk with severe nonischemic cardiomyopathy and very high risk with anesthesia and complication related to surgery the surgery will be delay for now he will be seen back urology as an outpatient and plan to do cystoscopy and probably an intervention if needed in the next few weeks. Attempt to send patient to subacute rehab she will apparently insurance company had declined having patient go to rehab at this point felt his doing better physically than but he will do and benefit from rehab. Talk to the patient about doing physical therapy while he is in the hospital make sure to the social work msw that he will be safe going home with help and then plan probably for going home tomorrow. 11/28/2023: Patient is doing better apparently is able to do physical therapy and have to walk with a walker with minimal help. 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 Also found that patient see primary care physician Dr. Munroe not clear why he ended up on my service this time but patient will be going back to see Dr. Munroe as an outpatient from [facility] and if he is hospitalized and need probably to go back to [facility] in the future. REVIEW OF SYSTEMS: CONSTITUTIONAL: Well-developed confused in no acute respiratory distress EYES: No icterus sclerae, no conjunctivitis. EARS, NOSE, MOUTH, THROAT, and FACE: No sore throat, lymphadenopathy, carotid bruits or deformity. RESPIRATORY: No SOB cough or wheezes. CARDIOVASCULAR: Positive. Currently palpitation. GASTROINTESTINAL: No Abd pain, Nausea or vomiting, no Diarrhea or constipation, No GI Bleed, no distention or masses. GENITOURINARY: Still have hematuria. INTEGUMENT/BREAST: Negative for any muscular injury with mild osteoarthritis.. HEMATOLOGIC/LYMPHATIC: Negative for bleed or purpura. MUSCULOSKELTAL: Negative for Myalgia or arthralgia. NEURLOGICAL: Quite bit confused alert moving all his 4 extremity. BEHAVIORAL/PSYCH: Quite bit anxious and confused. ENDOCRINE: Negative. PHYSICAL EXAMINATION: General Appearance: Alert, confused no acute respiratory distress. Neck HEENT: Supple, no lymphadenopathy, no thyroid enlargement, no carotid bruits. Lungs: Decreased breath sound bilaterally fine rhonchi no crackles or wheezes. Chest Wall: Decreased expansion with deep inspiration no tenderness and no deformity was found on exam, no costochondral pain or discomfort. Heart: Irregular rate and rhythm, S1, S2 positive S3 positive systolic murmur. Back: Symmetric, no curvature, ROM normal, no CVA tenderness. Abdomen: Soft, non-tender, bowel sounds active all four quadrants, no masses, no organomegaly. Extremities: Extremities normal, atraumatic, no cyanosis positive edema Pulses: 2+ and symmetric. Skin: Skin color, texture, tugor normal, no rashes or lesions. Neurologic: Alert confused, cranial nerves II through XII intact, positive generalized weakness with severe abnormal balance and gait. ASSESSMENT AND PLAN: _A-fib with RVR: Still not well-controlled, he was on metoprolol tartrate 12.5 mg twice a day should probably titrate dose up to 25 mg twice a day, Cardiology had seen patient and believed adding digoxin was a good choice no need for any amiodarone or any other management at this point. Cardiology apparently I agree with the current management treatment. _Severe cardiomyopathy most likely alcoholic type with ejection fraction of 20 percentile patient still is showing signs and symptoms of cardiomyopathy sadly with the blood pressure is not tight. Could not do Entresto for now because of acute kidney injury spironolactone was started beside furosemide. May be will decide to the smaller dose of ARB if patient can tolerate it. _Hyperkalemia: Was treated with Lokelma has been doing much better so far. _Acute kidney injury which most likely secondary to acute tubular necrosis plus slight left-sided obstructive uropathy from the mass in the rectal area kidney function slightly bit worse will consult nephrology and urology the patient will have probably another ultrasound of the kidney. No need for dialysis and kidney function is much better. 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 _History of alcoholism with quite alcohol withdrawal and alcohol encephalopathy, will continue multivitamin along with thiamine folic acid and B12 patient still seen neurology regularly _Hypertension: Blood pressure still quite bit low with the current symptoms he is on metoprolol only to make it more useful having to introduce Entresto patient probably can benefit from adding midodrine 5 mg twice a day to raise his blood pressure up little bit and prepare for keeping him on more medication to help his cardiomyopathy. _Alcoholic encephalopathy: With worsening symptoms lately the patient again might benefit eventually from adding lactulose and probably rifampin. _History of macrocytic anemia: Mostly related to alcoholism and B12 with folic acid deficiency, continue folic acid along with thiamine and B12 hemoglobin is much better. _Anticoagulation: Remain on Eliquis 5 mg twice a day. _Stage III chronic kidney disease mostly stage IIIa and has slight improvement his GFR remained at 59 continue hydration and supportive care. _Recurrent pleural effusion: Slightly bit better at this time no need for thoracentesis. _Severe GERD: Will continue pantoprazole 40 mg daily. _Hypothyroidism: Continue levothyroxine 200 mcg daily. Discussion: No intervention will be done while he is in the hospital patient had extreme high risk for surgical intervention at this point which will be delayed till he is more stable wean off alcohol for few months his ejection fraction hopefully will improve and his cardiomyopathy will be much better will be a lot safer to do intervention in 8 to 12 weeks. In the meanwhile patient can be seen by urology as an outpatient in consultation for follow-up. Attempt to send patient to subacute rehab had failed, the patient will be doing more physical therapy and eventually will be going home with family and home care along with physical therapy. Objective - Vital Signs Vital signs: Vital Signs Temp 96.0 F L 11/28/23 08:00 Pulse 75 11/28/23 08:09 Resp 18 11/28/23 08:00 BP 116/76 11/28/23 08:00 Pulse Ox 95 11/28/23 08:00 FiO2 Intake & Output 11/27/23 11/28/23 11/28/23 18:59 06:59 18:59 Intake Total 478 Output Total 1200 200 Balance -722 -200 Intake: Oral 478 Output: Urine 1200 200 Other: Voiding Method Urinal Toilet Toilet Urinal Urinal Diaper # Voids 1 # Bowel Movements 1 - Labs CBC & Chem 7: 11/25/23 03:04 11/27/23 06:32
[2023-11-28 13:19] VITALS: BMI 25.8
--- NOTE | 2023-11-29 18:39 | P.PN ---
Subjective Progress Note Date: 11/29/23 73-year-old with active medical history of chronic alcoholism, A-fib with RVR, history of CVA/TIA, hypertension, previous history of myocardial infarction, GERD, chronic anemia, who was transferred to [facility] On 11/12/2023 after being in the hospital for 2 weeks with main diagnosis at the time of altered ental status, metabolic acidosis, hypoxic respiratory failure, acute alcohol withdrawal, systolic congestive heart failure with ejection fraction of 20 percentile most likely from alcoholic cardiomyopathy, again pancytopenia and 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 Also had left sided large pleural effusion. With stage II ulcer on the left buttocks with unstageable ulcer on the right buttocks at the time. The patient did not do well in [facility] at the time and continue not to respond that well been anxious all the time still having some sign and symptom of alcohol withdrawal with quite a bit altered mental status confusion and such. 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 Hospital again: Patient to be in A- fib with RVR with pulse rate of 130 beats per minutes. Continue to have significant confusion and altered mental status. Was giving Cardizem initially and initiate his metoprolol and claimed that his pulse rate had responded decide to keep him in the hospital to see cardiology for maybe a Holter management avoid having A-fib happening all the time. He become quite bit confused and agitated ended up having CAT scan of the brain without contrast showed scattered small area of cortical infarct of the lateral left frontal lobe with right occipital lobe as well and biparietal subcortical white matter change.. His laboratory value with CBC CMP shows mildly elevated bilirubin proBNP was 16,900 with troponin of 0.026 UA is currently positive for RBC some WBC toxicology and drug screen along with respiratory culture were negative. Objective - Vital Signs Vital signs: Vital Signs Temp 98.3 F 11/29/23 08:00 Pulse 68 11/29/23 12:23 Resp 15 11/29/23 08:00 BP 95/60 11/29/23 08:00 Pulse Ox 93 L 11/29/23 08:50 FiO2 Intake & Output 11/28/23 11/29/23 11/29/23 18:59 06:59 18:59 Intake Total 560 236 Output Total 500 Balance -500 560 236 Weight 74.843 kg Intake: Oral 560 236 Output: Urine 500 Other: Voiding Method Toilet Toilet Toilet Urinal Urinal Urinal Diaper Diaper Diaper # Voids 3 - Exam Neck HEENT: Supple, no lymphadenopathy, no thyroid enlargement, no carotid bruits. Lungs: Decreased breath sound bilaterally fine rhonchi no crackles or wheezes. Chest Wall: Decreased expansion with deep inspiration no tenderness and no deformity was found on exam, no costochondral pain or discomfort. Heart: Irregular rate and rhythm, S1, S2 positive S3 positive systolic murmur. Back: Symmetric, no curvature, ROM normal, no CVA tenderness. Abdomen: Soft, non-tender, bowel sounds active all four quadrants, no masses, no organomegaly. Extremities: Extremities normal, atraumatic, no cyanosis positive edema Pulses: 2+ and symmetric. Skin: Skin color, texture, tugor normal, no rashes or lesions. Neurologic: Alert confused, cranial nerves II through XII intact, positive generalized weakness with severe abnormal balance and gait. - Labs CBC & Chem 7: 11/25/23 03:04 11/27/23 06:32 Assessment and Plan Assessment: _A-fib with RVR: Still not well-controlled, he was on metoprolol tartrate 12.5 mg twice a day should probably titrate dose up to 25 mg twice a day, Cardiology had seen patient and believed adding digoxin was a good choice no need for any amiodarone or any other management at this point. Cardiology apparently I agree with the current management treatment. _Severe cardiomyopathy most likely alcoholic type with ejection fraction of 20 percentile patient still is showing signs and symptoms of cardiomyopathy sadly with the blood pressure is not tight. Could not do Entresto for now because of acute kidney injury spironolactone was started beside furosemide. May be will decide to the smaller dose of ARB if patient can tolerate it. _Hyperkalemia: Was treated with Lokelma has been doing much better so far. _Acute kidney injury which most likely secondary to acute tubular necrosis plus slight left-sided obstructive uropathy from the mass in the rectal area kidney function slightly bit worse will consult nephrology and urology the patient will have probably another ultrasound of the kidney. No need for dialysis and kidney function is much better. 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 _History of alcoholism with quite alcohol withdrawal and alcohol encephalopathy, will continue multivitamin along with thiamine folic acid and B12 patient still seen neurology regularly _Hypertension: Blood pressure still quite bit low with the current symptoms he is on metoprolol only to make it more useful having to introduce Entresto patient probably can benefit from adding midodrine 5 mg twice a day to raise his blood pressure up little bit and prepare for keeping him on more medication to help his cardiomyopathy. _Alcoholic encephalopathy: With worsening symptoms lately the patient again migh t benefit eventually from adding lactulose and probably rifampin. _History of macrocytic anemia: Mostly related to alcoholism and B12 with folic acid deficiency, continue folic acid along with thiamine and B12 hemoglobin is much better. _Anticoagulation: Remain on Eliquis 5 mg twice a day. _Stage III chronic kidney disease mostly stage IIIa and has slight improvement his GFR remained at 59 continue hydration and supportive care. _Recurrent pleural effusion: Slightly bit better at this time no need for thoracentesis. _Severe GERD: Will continue pantoprazole 40 mg daily. _Hypothyroidism: Continue levothyroxine 200 mcg daily. --Patient was recommended subacute rehab; rehab was denied by patient's insurance; patient's primary care has initiated an appeal to the decision -- Discharge has been placed on hold
--- NOTE | 2023-11-30 13:19 | P.PN ---
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 Also had left sided large pleural effusion. With stage II ulcer on the left buttocks with unstageable ulcer on the right buttocks at the time. The patient did not do well in [facility] at the time and continue not to respond that well been anxious all the time still having some sign and symptom of alcohol withdrawal with quite a bit altered mental status confusion and such. 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 Hospital again: Patient to be in A- fib with RVR with pulse rate of 130 beats per minutes. Continue to have significant confusion and altered mental status. Was giving Cardizem initially and initiate his metoprolol and claimed that his pulse rate had responded decide to keep him in the hospital to see cardiology for maybe a Holter management avoid having A-fib happening all the time. He become quite bit confused and agitated ended up having CAT scan of the brain without contrast showed scattered small area of cortical infarct of the lateral left frontal lobe with right occipital lobe as well and biparietal subcortical white matter change.. His laboratory value with CBC CMP shows mildly elevated bilirubin proBNP was 16,900 with troponin of 0.026 UA is currently positive for RBC some WBC toxicology and drug screen along with respiratory culture were negative. 11/30/2023 Patient is seen and evaluated in room at bedside; seen comfortably in bed; denies any specific complaints Vital signs are reviewed and stable Patient admitted with atrial fibrillation with RVR and acute renal injury; currently clinically stable -Patient has been evaluated by PT/OT and is recommended subacute rehab; this disposition was declined by patient's insurance -Appeal to the decision has been submitted; discharge disposition pending response to appeal Objective - Vital Signs Vital signs: Vital Signs Temp 98.3 F 11/30/23 07:45 Pulse 72 11/30/23 07:45 Resp 18 11/30/23 07:45 BP 111/71 11/30/23 07:45 Pulse Ox 94 L 11/30/23 07:45 FiO2 Intake & Output 11/29/23 11/30/23 11/30/23 18:59 06:59 18:59 Intake Total 236 Output Total 275 Balance 236 -275 Intake: Oral 236 Output: Urine 275 Other: Voiding Method Toilet Urinal Urinal Diaper Diaper # Voids 2 - Exam Neck HEENT: Supple, no lymphadenopathy, no thyroid enlargement, no carotid bruits. Lungs: Decreased breath sound bilaterally fine rhonchi no crackles or wheezes. Chest Wall: Decreased expansion with deep inspiration no tenderness and no deformity was found on exam, no costochondral pain or discomfort. Heart: Irregular rate and rhythm, S1, S2 positive S3 positive systolic murmur. Back: Symmetric, no curvature, ROM normal, no CVA tenderness. Abdomen: Soft, non-tender, bowel sounds active all four quadrants, no masses, no organomegaly. Extremities: Extremities normal, atraumatic, no cyanosis positive edema Pulses: 2+ and symmetric. Skin: Skin color, texture, tugor normal, no rashes or lesions. Neurologic: Alert confused, cranial nerves II through XII intact, positive generalized weakness with severe abnormal balance and gait. - Labs CBC & Chem 7: 11/25/23 03:04 11/27/23 06:32 Assessment and Plan Assessment: _A-fib with RVR: Still not well-controlled, he was on metoprolol tartrate 12.5 mg twice a day should probably titrate dose up to 25 mg twice a day, Cardiology had seen patient and believed adding digoxin was a good choice no need for any amiodarone or any other management at this point. Cardiology apparently I agree with the current management treatment. _Severe cardiomyopathy most likely alcoholic type with ejection fraction of 20 p ercentile patient still is showing signs and symptoms of cardiomyopathy sadly with the blood pressure is not tight. Could not do Entresto for now because of acute kidney injury spironolactone was started beside furosemide. May be will decide to the smaller dose of ARB if patient can tolerate it. _Hyperkalemia: Was treated with Lokelma has been doing much better so far. _Acute kidney injury which most likely secondary to acute tubular necrosis plus slight left-sided obstructive uropathy from the mass in the rectal area kidney function slightly bit worse will consult nephrology and urology the patient will have probably another ultrasound of the kidney. No need for dialysis and kidney function is much better. 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 _History of alcoholism with quite alcohol withdrawal and alcohol encephalopathy, will continue multivitamin along with thiamine folic acid and B12 patient still seen neurology regularly _Hypertension: Blood pressure still quite bit low with the current symptoms he is on metoprolol only to make it more useful having to introduce Entresto patient probably can benefit from adding midodrine 5 mg twice a day to raise his blood pressure up little bit and prepare for keeping him on more medication to help his cardiomyopathy. _Alcoholic encephalopathy: With worsening symptoms lately the patient again might benefit eventually from adding lactulose and probably rifampin. _History of macrocytic anemia: Mostly related to alcoholism and B12 with folic acid deficiency, continue folic acid along with thiamine and B12 hemoglobin is much better. _Anticoagulation: Remain on Eliquis 5 mg twice a day. _Stage III chronic kidney disease mostly stage IIIa and has slight improvement his GFR remained at 59 continue hydration and supportive care. _Recurrent pleural effusion: Slightly bit better at this time no need for thoracentesis. _Severe GERD: Will continue pantoprazole 40 mg daily. _Hypothyroidism: Continue levothyroxine 200 mcg daily. --Patient was recommended subacute rehab; rehab was denied by patient's insurance; patient's primary care has initiated an appeal to the decision -- Discharge has been placed on hold
[2023-12-01 07:42] VITALS: BP 123/76; RESP 16; TEMP 98.7
[2023-12-01 12:26] VITALS: PULSE 68
== END 2023-12-01 14:04 | disposition home health service (06) | DRG 308 ==
LOC: EC 10:28 → 6NMEDSUR 12:25 → OBSVTOIN 11-21 10:06
PROVIDERS: ADMIT Internal Medicine Geriatric Medicine; ATTEND Internal Medicine Geriatric Medicine
DX: I48.19 Other persistent atrial fibrillation (principal); N17.0 Acute kidney failure with tubular necrosis; I13.0 Hypertensive heart and chronic kidney disease with heart failure and stage 1 through stage 4 chronic kidney disease, or unspecified chronic kidney disease; I50.22 Chronic systolic (congestive) heart failure; D61.818 Other pancytopenia; F10.239 Alcohol dependence with withdrawal, unspecified; E87.1 Hypo-osmolality and hyponatremia; I47.20 Ventricular tachycardia, unspecified; I42.6 Alcoholic cardiomyopathy; N13.9 Obstructive and reflux uropathy, unspecified; E03.9 Hypothyroidism, unspecified; R45.1 Restlessness and agitation; E87.5 Hyperkalemia; I25.2 Old myocardial infarction; N18.31 Chronic kidney disease, stage 3a; K21.9 Gastro-esophageal reflux disease without esophagitis; R31.0 Gross hematuria; L89.322 Pressure ulcer of left buttock, stage 2; N28.89 Other specified disorders of kidney and ureter; L89.310 Pressure ulcer of right buttock, unstageable; D63.1 Anemia in chronic kidney disease; Z71.3 Dietary counseling and surveillance; G31.2 Degeneration of nervous system due to alcohol; Z79.01 Long term (current) use of anticoagulants; Z79.899 Other long term (current) drug therapy; Z79.890 Hormone replacement therapy; Z86.73 Personal history of transient ischemic attack (TIA), and cerebral infarction without residual deficits; Z87.891 Personal history of nicotine dependence; Z20.822 Contact with and (suspected) exposure to COVID-19
CPT/HCPCS: 36415; 70450; 71045; 71046; 80048; 80053; 80306; 80320; 81001; 82140; 83735; 83880; 84484; 85025; 85027; 85610; 85730; 86850; 86900; 86901; 87086; 87636; 93005; 94640; 94760; 96365; 96375; 99285